=== PATIENT | male | born 1945 | race Caucasian/White ===

== ENCOUNTER 2017-10-19 14:33 | Outpatient (POV) | payer MEDICARE, MEDICAID, SELFPAY | END 2017-10-19 15:59 | disposition home or self-care (01) | PROVIDERS: Visit Provider Podiatrist | DX: M25.572 Pain in left ankle and joints of left foot (principal); L60.2 Onychogryphosis; E11.8 Type 2 diabetes mellitus with unspecified complications; M25.571 Pain in right ankle and joints of right foot | CPT/HCPCS: 99212; G0127 ==

== ENCOUNTER → 2018-03-29 16:47 | Outpatient (REF) | payer MEDICARE, MEDICAID, SELFPAY | LOC: LAB 16:47 | PROVIDERS: Visit Provider Podiatrist | DX: B35.1 Tinea unguium (principal) | CPT/HCPCS: 87102; 87206; 87220 ==

== ENCOUNTER → 2019-08-31 10:34 | Outpatient (CLI) | payer MEDICARE, OTHER, SELFPAY ==
--- NOTE | 2019-08-31 10:43 | XR_ITS ---
PROCEDURE: XR CHEST 2V CLINICAL HISTORY: COPD COMPARISON: CXR2 CHEST-AP VIEW ONLY from 09/03/[address] [facility] [address] CHEST W/O CONTRAST from 10/05/2014 CXR CHEST(2 VIEWS-NOT PORTABLE) from 10/17/2014 CXR CHEST(2 VIEWS-NOT PORTABLE) from 12/12/2015 FINDINGS: Prior median sternotomy with fracture several median sternotomy wires. Normal heart size . COPD with chronic changes in the left lung base. No lobar consolidation or collapse. There is biapical pleural thickening as before. No acute bony abnormalities. IMPRESSION: COPD with chronic changes, no acute finding Dictated by: Shamar Harrison MD 08/31/2019 11:11 Electronically signed by Shamar Harrison MD in [place] 08/31/2019 11:11
== END ==
PROVIDERS: PCP Family Medicine; Visit Provider Nurse Practitioner
DX: J44.9 Chronic obstructive pulmonary disease, unspecified (principal)
CPT/HCPCS: 71046

== ENCOUNTER 2019-09-04 05:41 | Observation (INO) ==
--- NOTE | 2019-09-04 05:41 | Emergency Department Note ---
ED Disposition Clinical Impression: Weakness, Gastroenteritis Disposition: Admitted as Observation Condition on Discharge: Fair - Critical Care Critical Care Time: No Attestation: On , the high probability of a clinically significant, sudden or life threatening deterioration of the following system(s) required my full and direct attention, intervention and personal management. The time I documented below is in addition to time spent performing reported procedures but includes the following listed in this critical care notation. Medical Decision Making - Edmund Inquiry Pt receiving controlled substance: No Vital Signs: 09/04/19 05:38 09/04/19 07:12 09/04/19 07:28 Temperature 97.9 F Temperature Source Oral Pulse Rate [Left Radial] 58 L 55 L 64 Respiratory Rate 14 Blood Pressure [Right Arm] 126/62 110/62 119/93 H Blood Pressure Mean [Right Arm] 83 78 101 Blood Pressure Source [Right Arm] Automatic Cuff Automatic Cuff Blood Pressure Position [Right Arm] Sitting Sitting Sitting 02 Sat by Pulse Oximetry 92 L 95 93 L Oxygen Delivery Method Room Air Room Air Room Air 09/04/19 07:43 Temperature Temperature Source Pulse Rate [Left Radial] 55 L Respiratory Rate Blood Pressure [Right Arm] 125/60 Blood Pressure Mean [Right Arm] 81 Blood Pressure Source [Right Arm] Automatic Cuff Blood Pressure Position [Right Arm] Sitting 02 Sat by Pulse Oximetry 95 Oxygen Delivery Method Room Air - Lab Data Lab Results 09/04/19 05:48: WBC 10.1, RBC 5.07, Hgb 14.6, Hct 46.7, MCV 92.1, MCH 28.8, MCHC 31.3 L, RDW 14.1, Plt Count 181, MPV 8.4, Neut % (Auto) 56.2, Lymph % (Auto) 36.8, [place] % (Auto) 5.5, Eos % (Auto) 1.3, Baso % (Auto) 0.3, Neut # (Auto) 5.7, Lymph # (Auto) 3.7, [place] # (Auto) 0.6, Eos # (Auto) 0.1, Baso # (Auto) 0.0 09/04/19 05:48: Sodium 143, Potassium 3.8, Chloride 105, Carbon Dioxide 26, Anion Gap 15.8 H, BUN 21 H, Creatinine 0.98, Estimated Creat Clear 103, Estimated GFR 75, Est GFR ( Amer) 91, Glucose 133 H, Calcium 9.0, Total Bilirubin 0.3, AST 10 L, ALT 22, Alkaline Phosphatase 83, Troponin I < 0.02, Total Protein 6.9, Albumin 3.6, Globulin 3.3 H, Albumin/Globulin Ratio 1.1 09/04/19 06:21: Lactate 1.7 09/04/19 06:30: Urine Color Yellow, Urine Appearance Clear, Urine pH 5.5, Ur Specific [place] 1.020, Urine Protein Negative, Urine Glucose (UA) 3+, Urine Ketones Negative, Urine Blood Negative, Urine Nitrate Negative, Urine Bilirubin Negative, Urine Urobilinogen 0.2, Ur Leukocyte Esterase Negative, Urine RBC None, Urine WBC Occasional, Ur Squamous Epith Cells None, Urine Bacteria Trace Result diagrams: 09/04/19 05:48 09/04/19 05:48 Orders (Tests/Meds): ED MEDICATIONS Discontinued Medications Generic Name Dose Route Start Last Admin Trade Name Freq PRN Reason Stop Dose Admin Sodium Chloride 1,000 ml 09/04/19 07:20 09/04/19 07:21 Sod Chlor 0.9% 1000ml Bag IV 09/04/19 07:21 1,000 ml BOLUS ONE Administration ORDERS Category Date Time Status Blood Culture Stat Micro 09/04/19 06:21 Received - Radiology Data #1 Image(s): Chest Image Reviewed: Yes I have reviewed radiologist's interpretation FINDINGS: Prior CABG. There is fracture of multiple median sternotomy wires. There are chronic interstitial changes. No lobar consolidation or collapse. No acute bony abnormalities. IMPRESSION: Chronic changes, no acute finding Dictated by: Shamar Harrison MD 09/04/2019 07:17 Electronically signed by Shamar Harrison MD in [place] 09/04/2019 07:17 - CT Data CT Scan: Head Time Received: 06:45 ([facility] fax) ED CT Reviewed: Yes: I have viewed the radiologist's interpretation Findings Narrative: No acute intracranial abnormality - Physician Consults Physician Consulted: [place] Time: 07:54 Reason -: Admission Comment/Response: Agrees to admit the patient to the hospital. We discussed the patient's clinical information, including history, exam, laboratory and radiology results and ED course. Per hospital procedure, I will write temporary bridge inpatient orders on the patient. Specific orders requested by the admitting physician: Normal saline at 75 cc/h. Sliding scale insulin. Recheck troponin one more time. Medical Decision Narrative: 7:15 AM: is now here. She says that symptoms started about 3 AM. States that he had one episode of diarrhea that she cleaned up. No blood. He had to crawl to the bathroom. She says she could not help him get up. He was very sweaty. He said he could not see. He was weak all over "like a puppet". Patient says he is improved now but still "feels funny". General Adult HPI - General Stated complaint: weakness Time Seen by Provider: 09/04/19 05:30 - History of Present Illness HPI narrative: Patient arrives by ambulance with no specific complaint except "I just can't do anything". Appears to be referring to general weakness. He does not know when it started. Paramedics report that the patient was found sitting on the toilet in the bathroom, but was not using the bathroom. He was diaphoretic. He denies any pain or discomfort. Denies any difficulty breathing. He says he was nauseated but could not vomit. One episode of diarrhea, no abdominal pain. Denies chest pain. Denies headache. States he has not been sick with URI symptoms or cough. - Related Data Home Medications Medication Instructions Recorded Confirmed albuterol sulfate HFA 90 2 puff INHALATION Q6 PRN 25 Days 12/28/17 09/04/19 mcg/actuation aerosol inhaler #18 alcohol swabs pad TOPICAL 25 Days #100 12/28/17 08/31/19 atorvastatin 40 mg tablet 40 mg PO DAILY 90 Days #90 12/28/17 09/04/19 budesonide-formoterol HFA 160 INHALATION 90 Days #31 12/28/17 08/31/19 mcg-4.5 mcg/actuation aerosol inhaler canagliflozin 300 mg tablet PO 90 Days #90 12/28/17 08/31/19 finasteride 5 mg tablet 5 mg PO DAILY 90 Days #90 12/28/17 09/04/19 fluticasone 500 mcg-salmeterol 50 INHALATION 90 Days #180 12/28/17 08/31/19 mcg/dose blistr powdr for inhalation insulin glargine (U-100) 100 SUB-Q 37 Days #30 02/27/18 10/31/19 unit/mL (3 mL) subcutaneous pen losartan 50 mg tablet 50 mg PO DAILY 90 Days #90 12/28/17 09/04/19 metoprolol tartrate 25 mg tablet 25 mg PO DAILY 90 Days #90 12/28/17 09/04/19 montelukast 10 mg tablet 10 mg PO DAILY 90 Days #90 12/28/17 09/04/19 pen needle, diabetic 31 gauge x See Dose Instructions .ROUTE 12/28/17 08/31/19/16" .MEDSUPPLY 25 Days #100 each ranitidine 150 mg tablet 150 mg PO BID 90 Days #180 12/28/17 09/04/19 sitagliptin 50 mg-metformin ER 1 tab PO BID 90 Days #180 12/28/17 09/04/19 1,000 mg tablet,extended release 24h mp tamsulosin 0.4 mg capsule 0.4 mg PO DAILY 90 Days #90 12/28/17 08/31/19 umeclidinium 62.5 mcg/actuation INHALATION 90 Days #90 12/28/17 08/31/19 blister powder for inhalation fluticasone propionate 50 INTRANASAL 30 Days #16 03/29/18 08/31/19 mcg/actuation nasal spray,suspension Empagliflozin [Jardiance] 25 mg PO DAILY 09/04/19 09/04/19 Fluticasone/Salmeterol [Advair 1 each INHALATION DAILY 09/04/19 09/04/19 500/50mcg diskus] Insulin Glargine,Hum.rec.anlog 100 unit SQ DAILY 09/04/19 09/04/19 [Verenaagltanvi Mcguire U-100] Ipratropium [place] [Atrovent Hfa 2 puff INHALATION QID PRN 09/04/19 09/04/19 Inh] Umeclidinium [place] [Incruse 1 puff INHALATION DAILY 09/04/19 09/04/19 Ellipta] Allergies Allergy/AdvReac Type Severity Reaction Status Date / Time PCN (penicillin) Allergy Unknown I-ITCHING Uncoded 09/15/18 09:[address] [facility] History - Hepatitis A Screen Attestation statement:: This patient has been screened for Hepatitis A risk factors. I have reviewed the patient's past medical history: Yes Medical History: Reports:: Diabetes Mellitus Type 2, Gastroesophageal Reflux Disease(GERD), Hyperlipidemia, Hypertension Other Medical History: Reports: Arthritis, Sinus Problems Other Surgeries: Yes: Cardiac Surgery Amputation: No Fractures: No - Social History Smoking Status: Current every day smoker Tobacco Type: cigarettes # Packs/Day (cigarettes): 1 #Yrs smoked (if former smoker): 62 Alcohol Intake: never Alcohol Intake Frequency:: other Substance Use Type: denies use Family Hx:: Non-contributory ROS Obtained: Yes All systems reviewed & no additional complaints - Constitutional Constitutional: Denies fever(s), Reports weakness - ENT Ears, Nose, Mouth, and Throat: Denies nasal discharge, Denies sore throat - Cardiovascular Cardiovascular: Denies chest pain - Respiratory Respiratory: No cough, No dyspnea - Gastrointestinal Gastrointestingal: Reports: nausea. Denies: abdominal pain, vomiting - Neurologic Neurologic: Denies focal weakness, Denies headache(s) Physical Exam - General General appearance: alert, in no apparent distress - Head Head exam: atraumatic, normocephalic - Eye Eye exam: Present: normal appearance, PERRL, EOMI - ENT ENT exam: Present: mucous membranes moist - Neck Neck exam: Present: normal inspection, trachea midline. Absent: meningismus - Chest Chest inspection: Present: normal inspection, symmetric chest wall rise - Respiratory Respiratory exam: Present: normal lung sounds bilaterally. Absent: respiratory distress - Cardiovascular Cardiovascular exam: Present: regular rate, normal rhythm, normal heart sounds - Abdominal Exam Abdominal exam: Present: soft, normal bowel sounds. Absent: distention, tenderness - Extremities Exam Extremities exam: Present: normal inspection - Neurological Exam Neurological exam: Present: alert, CN II-XII intact, other (General weakness, no focal deficit) - Psychiatric Psychiatric exam: Present: normal affect, normal mood - Skin Skin exam: Present: warm, dry - Other Other exam information: No facial asymmetry. Will not hold up any of the extremities against gravity, but when painful stimulus applied raises each arm independently up off of the bed. Also withdraws both feet to stimulus on the bottom of his foot.
[2019-09-04 05:59] LABS: Basophils % 0.3 % (0.1-2.0); Eosinophils # 0.1 K/mm3 (0.0-0.4); Eosinophils % 1.3 % (0.1-12.0); Hematocrit 46.7 % (42.0-52.0); Hemoglobin 14.6 g/dL (14.1-18.0); Lymphocytes # 3.7 K/mm3 (0.7-4.5); Lymphocytes % 36.8 % (10-50); Mean Corpuscular HGB Conc 31.3 g/dL (31.8-35.4); Mean Corpuscular Volume 92.1 fl (80-94); Mean Platelet Volume 8.4 fl (7.4-10.4); Monocytes # 0.6 K/mm3 (0.1-1.0); Monocytes % 5.5 % (1.7-9.3); Neutrophils # 5.7 K/mm3 (1.8-7.8); Neutrophils % 56.2 % (37.0-80.0); Platelet Count 181 K/mm3 (142-424); Red Blood Count 5.07 M/mm3 (4.60-6.20); Red Cell Distribution Width 14.1 % (11.5-17.5); White Blood Count 10.1 K/mm3 (4.8-10.8)
[2019-09-04 06:14] LABS: Alanine Aminotransferase 22 U/L (12-78); Albumin Level 3.6 gm/dL (3.4-5.0); Albumin/Globulin Ratio 1.1 (1.1-1.8); Alkaline Phosphatase 83 U/L (46-116); Anion Gap 15.8 mEq/L (5-15); Aspartate Amino Transferase 10 U/L (15-37); Bilirubin,Total 0.3 mg/dL (0.2-1.0); Blood Urea Nitrogen 21 mg/dL (7-18); Carbon Dioxide 26 mmol/L (21.0-32.0); Chloride 105 mmol/L (98-107); Globulin 3.3 gm/dl (1.3-3.2); Glucose 133 mg/dL (74-106); Sodium 143 mmol/L (136-145); Total Protein,Serum 6.9 gm/dL (6.4-8.2)
[2019-09-04 06:41] LABS: Microscopic, Urine URINE MICROSCOPIC (MICROSCOPIC)
[2019-09-04 06:44] LABS: Appearance,Urine CLEAR (Clear); Bilirubin,Urine Negative (Negative); Blood, Urine Negative (Negative); Color,Urine YELLOW (Yellow); Glucose,Urine (UA) 3+ (Negative); Ketones,Urine Negative (Negative); Leukocyte Esterase,Urine Negative (Negative); PH,Urine 5.5 (5.0-8.5); Protein,Urine Negative (Negative); Urobilinogen,Urine 0.2 EU/dl (0.2)
[2019-09-04 06:58] LABS: Bacteria,Urine Trace /lpf; WBC,Urine Occasional #/hpf (0-3)
--- NOTE | 2019-09-04 08:50 | Pharmacy Consult Notes ---
[facility] Pharmacy VTE Monitoring - Patient Demographics Admission date: 09/04/19 Report Date: 09/04/19 Time: 08:50 Allergies/Adverse Reactions: Patient Allergies PCN (penicillin) Allergy (Unknown, Uncoded 09/15/18 09:40) I-ITCHING Height: 1.85 m Weight: 99.904 kg Patient Problems: Current Active Problems Weakness (Acute) Gastroenteritis (Acute) - VTE Risk Labs: VTE Related Lab Results Hgb 14.6 g/dL (14.1-18.0) 09/04/19 05:48 Hct 46.7 % (42.0-52.0) 09/04/19 05:48 Plt Count 181 K/mm3 (142-424) 09/04/19 05:48 BUN 21 mg/dL (7-18) H 09/04/19 05:48 Creatinine 0.98 mg/dL (0.70-1.30) 09/04/19 05:48 Estimated Creat Clear 103 mL/min (50-200) 09/04/19 05:48 - Prophylaxis VTE Prophylaxis Ordered?: Yes Types of VTE Prophylaxis: TEDS Knee High Location of Applied Device: Bilateral Lower Extremeties - VTE Diagnosis Confirmed Treatment or plan recommended: Continue Current Treatment
--- NOTE | 2019-09-04 16:40 | History & Physical Report ---
*Admission Date: 09/04/19 *Chief complaint: "I just feel funny" *History of present illness: 74-year-old male presented to the emergency department this morning after EMS was contacted by his . Patient reports around 3 AM he awoke and felt weak and diaphoretic and when he attempted to get out of bed he was not strong enough to and simply fell back in his bed. His later reported to him that he apparently did slide out of bed and crawled to the bathroom to use the bathroom. He was disoriented during this time and at some point his called EMS. EMS arrived at his home. Patient was able to proceed with having a bowel movement but still was too weak to rise up off the toilet on his own and ultimately was brought to the emergency department. Patient is a diabetic and blood sugar was checked by EMS and was normal. In the emergency department work-up was rather unrevealing. Patient continued to be too weak to be able to ambulate or even raise his arms per reports. He could not give specifics other than that he "felt funny" and decision was made to admit him for observation. At the time of this interview which is 4:30 PM patient reports he began feeling better about an hour after admission to the floor and now he feels back to baseline. Review of systems is negative for fevers, chills, shortness of breath, chest pain, cough, vomiting, diarrhea Review of systems is positive for mild nausea and abdominal bloating [facility] History I have reviewed the patient's past medical history: Yes Medical History: Reports:: Congestive Heart Failure, Diabetes Mellitus Type 2, Gastroesophageal Reflux Disease(GERD), Hyperlipidemia, Hypertension, Myocardial Infarction *Have you ever received a pneumonia vaccine?: Yes *Have you received a flu vaccine this season?: No Other Medical History: Reports: Arthritis, Cataracts, Sinus Problems Other Surgeries: Yes: CABG, Cardiac Surgery Amputation: No Fractures: No - *Social History Educational Level: Completed High School Smoking Status: Current every day smoker Tobacco Type: cigarettes # Packs/Day (cigarettes): 1 #Yrs smoked (if former smoker): 62 Alcohol Intake: never Alcohol Intake Frequency:: other Substance Use Type: denies use *Occupational Status:: retired Housing: house Household Members: spouse *Travel in the last 8 weeks: None Family Hx:: Diabetes Review of Systems - Review of Systems Review of systems:: pertinent systems reviewed and negative unless documented below - *Neurologic Reports weakness, Denies localized weakness, Denies headache(s) Meds Home Medications Medication Instructions Recorded Confirmed Type albuterol sulfate HFA 90 2 puff INHALATION Q6 PRN 25 Days 12/28/17 09/04/19 History mcg/actuation aerosol inhaler #18 atorvastatin 40 mg tablet 40 mg PO DAILY 90 Days #90 12/28/17 09/04/19 History finasteride 5 mg tablet 5 mg PO DAILY 90 Days #90 12/28/17 09/04/19 History losartan 50 mg tablet 50 mg PO DAILY 90 Days #90 12/28/17 09/04/19 History metoprolol tartrate 25 mg tablet 25 mg PO DAILY 90 Days #90 12/28/17 09/04/19 History montelukast 10 mg tablet 10 mg PO DAILY 90 Days #90 12/28/17 09/04/19 History ranitidine 150 mg tablet 150 mg PO BID 90 Days #180 12/28/17 09/04/19 History Empagliflozin [Jardiance] 25 mg PO DAILY 09/04/19 09/04/19 History Insulin Glargine,Hum.rec.anlog 86 unit SQ DAILY 09/04/19 09/04/19 History [Basaglar Kwikpen U-100] Ipratropium [place] [Atrovent Hfa 2 puff INHALATION QID PRN 09/04/19 09/04/19 History Inh] Sitagliptin Phos/Metformin HCl 2 tab PO BID 09/04/19 09/04/19 History [Janumet Xr 50-1,000 mg Tablet] Tamsulosin HCl 0.4 mg PO DAILY 09/04/19 09/04/19 History Allergies Allergy/AdvReac Type Severity Reaction Status Date / Time PCN (penicillin) Allergy Unknown I-ITCHING Uncoded 09/15/18 09:40 Exam Vital signs and Labs for Last 24 Hours: Temp Pulse Resp BP Pulse Ox 98.0 F 70 16 120/61 92 L 09/04/19 16:00 09/04/19 16:00 09/04/19 16:00 09/04/19 16:00 09/04/19 16:00 Laboratory Results - last 24 hr 09/04/19 05:48: WBC 10.1, RBC 5.07, Hgb 14.6, Hct 46.7, MCV 92.1, MCH 28.8, MCHC 31.3 L, RDW 14.1, Plt Count 181, MPV 8.4, Neut % (Auto) 56.2, Lymph % (Auto) 36.8, [place] % (Auto) 5.5, Eos % (Auto) 1.3, Baso % (Auto) 0.3, Neut # (Auto) 5.7, Lymph # (Auto) 3.7, [place] # (Auto) 0.6, Eos # (Auto) 0.1, Baso # (Auto) 0.0 09/04/19 05:48: Sodium 143, Potassium 3.8, Chloride 105, Carbon Dioxide 26, Anion Gap 15.8 H, BUN 21 H, Creatinine 0.98, Estimated Creat Clear 103, Estimated GFR 75, Est GFR ( Amer) 91, Glucose 133 H, Calcium 9.0, Total Bilirubin 0.3, AST 10 L, ALT 22, Alkaline Phosphatase 83, Troponin I < 0.02, Total Protein 6.9, Albumin 3.6, Globulin 3.3 H, Albumin/Globulin Ratio 1.1 09/04/19 06:21: Lactate 1.7 09/04/19 06:30: Urine Color Yellow, Urine Appearance Clear, Urine pH 5.5, Ur Specific [place] 1.020, Urine Protein Negative, Urine Glucose (UA) 3+, Urine Ketones Negative, Urine Blood Negative, Urine Nitrate Negative, Urine Bilirubin Negative, Urine Urobilinogen 0.2, Ur Leukocyte Esterase Negative, Urine RBC None, Urine WBC Occasional, Ur Squamous Epith Cells None, Urine Bacteria Trace 09/04/19 08:58: Troponin I < 0.02 09/04/19 10:46: POC Glucose 172 H I & O for Last 24 hours: Intake & Output 09/02/19 09/03/19 09/04/19 09/05/19 12:59 11:59 11:59 11:59 Intake Total 1000 / 1000 240 / 240 Balance 1000 / 1000 240 / 240 Weight 220 lb 4 oz - *Routine HEENT Exam Head: Present: normocephalic Eye: Present: EOMI, PERRL ENT: Present: mucous membranes moist - *Routine Neck Exam Present: supple. Absent: lymphadenopathy - *Routine Respiratory Exam Present: CTA bilaterally - *Routine Cardiovascular Exam Present: RRR - *Routine Abdominal Exam Present: soft, normoactive bowel sounds. Absent: tenderness - *Routine Extremities Exam Absent: cyanosis, clubbing, edema - *Routine Skin Exam Present: warm. Absent: rash - *Routine Neurological Exam Present: alert, oriented X3 - Detailed Eye Exam Eyelids: Left normal inspection Assessment and Plan (1) Weakness Current visit: Yes Status: Acute Category: Medical Code(s): R53.1 - Weakness Patient has been admitted for observation and is already improving. Will be observed overnight for any further symptoms and if no change in patient's condition anticipate discharge in the morning
--- NOTE | 2019-09-04 17:13 | Electrocardiograph Report ---
APPROVED REPORT Exam: Resting ECG HR:56 bpm ECG Measurements Heart Rate 56 AXES NC 180 P 36 QRSd 158 QRS 103 QT 494 T81 QTc 476 <Conclusion> Sinus bradycardia Right bundle branch block Abnormal ECG Electronically signed by : Amando Ojeda, 09/04/2019 17:12:56
--- NOTE | 2019-09-05 07:35 | Discharge Summary ---
General - General Admission date:: 09/04/19 Discharge date: 09/05/19 HPI HPI: 74-year-old male presented to the emergency department this morning after EMS was contacted by his . Patient reports around 3 AM he awoke and felt weak and diaphoretic and when he attempted to get out of bed he was not strong enough to and simply fell back in his bed. His later reported to him that he apparently did slide out of bed and crawled to the bathroom to use the bathroom. He was disoriented during this time and at some point his called EMS. EMS arrived at his home. Patient was able to proceed with having a bowel movement but still was too weak to rise up off the toilet on his own and ultimately was brought to the emergency department. Patient is a diabetic and blood sugar was checked by EMS and was normal. In the emergency department work-up was rather unrevealing. Patient continued to be too weak to be able to ambulate or even raise his arms per reports. He could not give specifics other than that he "felt funny" and decision was made to admit him for observation. At the time of this interview which is 4:30 PM patient reports he began feeling better about an hour after admission to the floor and now he feels back to baseline. Review of systems is negative for fevers, chills, shortness of breath, chest pain, cough, vomiting, diarrhea Review of systems is positive for mild nausea and abdominal bloating Hospital Course Hospital Course: Patient was admitted and shortly after admission felt like it returned to baseline. He was watched overnight for recurrence of symptoms. Patient was able to eat. He was able to ambulate. He was able to use bathroom facilities without assistance. He was discharged home the following day on September 05. No changes were made to his medication regimen. Objective Vital signs: Temp Pulse Resp BP Pulse Ox 97.9 F 65 17 130/63 93 L 09/05/19 04:00 09/05/19 04:00 09/05/19 04:00 09/05/19 04:00 09/05/19 04:00 Results Labs on day of discharge: Labs from last 24 hours 09/05/19 09/04/19 09/04/19 06:29 20:45 16:36 POC Glucose 122 H 126 H 89 Troponin I 09/04/19 09/04/19 09/04/19 10:46 08:58 05:29 POC Glucose 172 H 137 H Troponin I < 0.02 DS: Diagnosis - Discharge Diagnosis (1) Weakness Status: Resolved Discharge Plan - Patient Discharge Instructions ACTIVITY: Continue current activity DIET: continue same diet - Follow up Plan Follow up with: Sarah Mora APRN [Nurse Practitioner] - 1 week Home Medications: Home Medications Medication Instructions Recorded Confirmed Type albuterol sulfate HFA 90 2 puff INHALATION Q6 PRN 25 Days 12/28/17 09/04/19 History mcg/actuation aerosol inhaler #18 atorvastatin 40 mg tablet 40 mg PO DAILY 90 Days #90 12/28/17 09/04/19 History finasteride 5 mg tablet 5 mg PO DAILY 90 Days #90 12/28/17 09/04/19 History losartan 50 mg tablet 50 mg PO DAILY 90 Days #90 12/28/17 09/04/19 History metoprolol tartrate 25 mg tablet 25 mg PO DAILY 90 Days #90 12/28/17 09/04/19 History montelukast 10 mg tablet 10 mg PO DAILY 90 Days #90 12/28/17 09/04/19 History ranitidine 150 mg tablet 150 mg PO BID 90 Days #180 12/28/17 09/04/19 History Empagliflozin [Jardiance] 25 mg PO DAILY 09/04/19 09/04/19 History Insulin Glargine,Hum.rec.anlog 86 unit SQ DAILY 09/04/19 09/04/19 History [Basaglar Petronapen U-100] Ipratropium [place] [Atrovent Hfa 2 puff INHALATION QID PRN 09/04/19 09/04/19 History Inh] Sitagliptin Phos/Metformin HCl 2 tab PO BID 09/04/19 09/04/19 History [Janumet Xr 50-1,000 mg Tablet] Tamsulosin HCl 0.4 mg PO DAILY 09/04/19 09/04/19 History Prescriptions/Medication Reconciliation: Continued losartan 50 mg tablet 50 mg PO DAILY 90 Days #90 albuterol sulfate HFA 90 mcg/actuation aerosol inhaler 2 puff INHALATION Q6 PRN 25 Days #18 PRN Reason: Shortness Of Breath metoprolol tartrate 25 mg tablet 25 mg PO DAILY 90 Days #90 finasteride 5 mg tablet 5 mg PO DAILY 90 Days #90 ranitidine 150 mg tablet 150 mg PO BID 90 Days #180 atorvastatin 40 mg tablet 40 mg PO DAILY 90 Days #90 montelukast 10 mg tablet 10 mg PO DAILY 90 Days #[address] [Atrovent Hfa Inh] 2 puff INHALATION QID PRN PRN Reason: Shortness Of Breath Or Wheezing Empagliflozin [Jardiance] 25 mg PO DAILY Sitagliptin Phos/Metformin HCl [Janumet Xr 50-1,000 mg Tablet] 2 tab PO BID Insulin Glargine,Hum.rec.anlog [Gretel Mcguire U-100] 86 unit SQ DAILY Tamsulosin HCl 0.4 mg PO DAILY - Problem Reconciliation Problems Reviewed?: Yes
== END 2019-09-05 08:40 | disposition home or self-care (01) ==
LOC: ER 05:41 → 2ND 05:41
PROVIDERS: ADMIT Family Medicine; ATTEND Family Medicine
CPT/HCPCS: 36415; 70450; 71010; 71045; 80053; 81001; 82962; 83605; 84484; 85025; 87040; 87077; 93005; 96365; 99284; G0378

== ENCOUNTER → 2019-09-19 12:50 | Outpatient (CLI) | payer MEDICARE, OTHER, SELFPAY ==
--- NOTE | 2019-09-19 | CA_ITS ---
APPROVED REPORT Development Trainer: CONRAD Laterality: Bilateral Study Quality: Good Risk Factors Hypertension: TIA/CVA History Hyperlipidemia Diabetes Smoking Doppler Spectral Velocity Analysis ECA (R) 109.70/19.70 cm/s ECA (L) 135.40/20.50 cm/s dICA (R) 98.80/31.70 cm/s dICA (L) 145.30/48.80 cm/s [place] (R) 138.80/35.70 cm/s [place] (L) 120.20/41.30 cm/s pICA (R) 127.20/42.90 cm/s pICA (L) 62.20/18.50 cm/s dCCA (R) 90.00/24.00 cm/s dCCA (L) 90.30/19.50 cm/s pCCA (R) 102.80/18.00 cm/s pCCA (L) 131.00/21.20 cm/s Vert (R) 29.50/12.20 cm/s Vert (L) 98.90/25.00 cm/s ICA/CCA 1.50 ICA/CCA 1.60 Findings Duplex evaluation demonstrates stenosis of the right proximal internal carotid artery <20% with PSV <140 cm/sec, EDV <100 cm/sec, and IC/CC Ratio <4.0.Duplex evaluation demonstrates stenosis of the left proximal internal carotid artery <20% with PSV <140 cm/sec, EDV <100 cm/sec, and IC/CC Ratio <4.0. Conclusion No increased velocities to suggest hemodynamically significant stenosis in either internal carotid artery. Electronically signed by : Shamar Harrison MD 09/20/2019 19:09:52
== END ==
PROVIDERS: PCP Family Medicine; Visit Provider Nurse Practitioner
DX: R55 Syncope and collapse (principal)
CPT/HCPCS: 93880

== ENCOUNTER → 2019-12-05 09:32 | Outpatient (CLI) | payer MEDICARE, OTHER, SELFPAY ==
--- NOTE | 2019-12-05 09:44 | XR_ITS ---
PROCEDURE: XR CHEST 2V CLINICAL HISTORY: COPD COMPARISON: [facility] CT CHEST W/O CONTRAST from 07/14/[address] [facility] CHEST W/O CONTRAST from 10/05/2014 CXR CHEST(2 VIEWS-NOT PORTABLE) from 12/12/2015 XR CHEST 2V from 08/31/2019 XR CHEST PORTABLE from 09/04/2019 FINDINGS: Prior CABG. Normal heart size. COPD with chronic changes. There is increased density in the left lung base which appears chronic and may be related to pleural parenchymal scarring. Chronic changes left mid lung. There is biapical pleural thickening as well. No lobar consolidation or collapse. There is fracture of every median sternotomy wire. No acute bony abnormalities. IMPRESSION: Chronic changes, COPD. No change with no acute finding Dictated by: Shamar Harrison MD 12/05/2019 18:51 Electronically signed by Shamar Harrison MD in [place] 12/05/2019 18:51
== END ==
PROVIDERS: PCP Family Medicine; Visit Provider Nurse Practitioner
DX: J44.9 Chronic obstructive pulmonary disease, unspecified (principal)
CPT/HCPCS: 71046

== ENCOUNTER → 2020-01-04 15:34 | Outpatient (CLI) | payer MEDICARE, OTHER, SELFPAY ==
--- NOTE | 2020-01-04 15:38 | CT_ITS ---
PROCEDURE: CT LUNG SCREENING CLINICAL INDICATION: H/O NICOTINE DEPENDENCE Sixty-five pack-year smoking history, asymptomatic lung cancer COMPARISON: [facility] CT CHEST W/O CONTRAST from 10/05/2014 TECHNIQUE: The exam was performed on a GE Light Speed [address] scanner using 2.90 mGy CTDI. A low dose helical CT CHEST was performed on a multi-detector scanner. All CT scans at the facility use one or more dose reduction, viz: automated exposure control, ma/kV adjustment per patient size (including targeted exams where dose is matched to indication, i.e. head), or iterative reconstruction technique. The LDCT was performed in a facility that meets the criteria for the screening program. Data regarding this exam was submitted to ACR which is an approved registry. The order for this exam indicates that it came as a result of a lung cancer screening counseling shard decision-making visit that included all the elements required of such a visit including smoking cessation. The radiologist interpreting this exam meets the CMS criteria for the LDCT lung cancer screening program. The exam is reported using the Lung-RADS classification scale and reported to the ACR registry. NOTE: This study was performed for the specific purposes of lung cancer screening and is not an alternative to diagnostic chest CT. RADIATION DOSE: CTDI vol(CT dose Index-volume) = 2.90mG DLP (Dose Length Product) = 94.29 mGcm FINDINGS: COPD with centrilobular and paraseptal emphysema. Scattered areas of scarring. 5 mm noncalcified nodule right lower lobe posterior laterally image number 40 series 4 unchanged. Scattered calcified granulomas. Stable 3 mm noncalcified nodule right upper lobe superiorly. Stable 7 mm noncalcified nodule left upper lobe image 32 series 4. There are 2 5 mm nodules in the left upper lobe 37 and 39 not readily apparent on the previous exam. OTHER FINDINGS: The IMPRESSION: Lung rads category 3 probably benign. There are 2 new nodules in the left upper lobe. Recommend six-month diagnostic CT without and with contrast. COPD with centrilobular and paraseptal emphysema. Dictated by: Shamar Harrison MD 01/08/2020 10:27 Electronically signed by Shamar Harrison MD in [place] 01/08/2020 10:27
== END ==
PROVIDERS: PCP Family Medicine; Visit Provider Internal Medicine Pulmonary Disease
DX: Z87.891 Personal history of nicotine dependence (principal); Z12.2 Encounter for screening for malignant neoplasm of respiratory organs

== ENCOUNTER → 2020-07-29 10:03 | Outpatient (CLI) | payer MEDICARE, OTHER, SELFPAY ==
--- NOTE | 2020-07-29 10:06 | CT_ITS ---
PROCEDURE: CT LUNG SCREENING CLINICAL INDICATION: TOBACCO USE CURRENT SMOKER 162.5 pack year smoking history copd, emphysema, chf prior 01/04/20 COMPARISON: CT [facility] CT CHEST W/O CONTRAST from 10/05/[address] LUNG SCREENING from 01/04/2020 TECHNIQUE: The exam was performed on a [employer] Light Speed [address] scanner using 2.90 mGy CTDI. A low dose helical CT CHEST was performed on a multi-detector scanner. All CT scans at the facility use one or more dose reduction, viz: automated exposure control, ma/kV adjustment per patient size (including targeted exams where dose is matched to indication, i.e. head), or iterative reconstruction technique. The LDCT was performed in a facility that meets the criteria for the screening program. Data regarding this exam was submitted to ACR which is an approved registry. The order for this exam indicates that it came as a result of a lung cancer screening counseling shard decision-making visit that included all the elements required of such a visit including smoking cessation. The radiologist interpreting this exam meets the CMS criteria for the LDCT lung cancer screening program. The exam is reported using the Lung-RADS classification scale and reported to the ACR registry. NOTE: This study was performed for the specific purposes of lung cancer screening and is not an alternative to diagnostic chest CT. RADIATION DOSE: CTDI vol(CT dose Index-volume) = 2.90mG DLP (Dose Length Product) = 113.33 mGcm FINDINGS: COPD. Scattered areas of scarring with pleural parenchymal thickening in the apices.. Scarring is present in the lung bases posteriorly. Calcified granuloma superior segment right lower lobe. There are multiple small pulmonary nodules as previously described the largest in the left upper lobe laterally at approximately 7 mm unchanged.. There is a new opacity in the left lung base posteriorly. This is measures approximately 2 cm and is in the extreme lung base posteriorly and could be due to an area of atelectasis or patchy infiltrate. Developing pulmonary nodule is however an additional consideration. Short-term CT follow-up without and with contrast is recommended. There is some pleural thickening in the left lower lobe posteriorly. Previously there were 2 new nodular opacities in the left upper lobe which are not demonstrated on today's exam and may have been inflammatory or infectious. OTHER FINDINGS: Mixed soft tissue and fatty mass of the left adrenal gland consistent with an adrenal myelolipoma at 2.9 cm not significantly changed from 10/05/2014 IMPRESSION: Lung-RADS Category 4A Suspicious Follow-up: [address] Chest without and with contrast to follow the new area of consolidation/nodule in the left lung base posteriorly. Dictated by: Shamar Harrison MD 08/09/2020 09:10 Shamar Harrison MD in [place] 08/09/2020 09:10
== END ==
PROVIDERS: PCP Family Medicine; Visit Provider Internal Medicine Pulmonary Disease
DX: Z87.891 Personal history of nicotine dependence (principal); Z12.2 Encounter for screening for malignant neoplasm of respiratory organs

== ENCOUNTER → 2021-04-23 12:43 | Outpatient (CLI) | payer MEDICARE, OTHER, SELFPAY ==
--- NOTE | 2021-04-23 14:17 | CT_ITS ---
PROCEDURE INFORMATION: Exam: CT Chest Without Contrast; Diagnostic Exam date and time: 04/23/2021 2:17 PM Age: 75 years old Clinical indication: Condition or disease; Other: Lung nodule f/u; Additional info: Nodule follow-up TECHNIQUE: Imaging protocol: Diagnostic computed tomography of the chest without contrast. Radiation optimization: All CT scans at this facility use at least one of these dose optimization techniques: automated exposure control; mA and/or kV adjustment per patient size (includes targeted exams where dose is matched to clinical indication); or iterative reconstruction. COMPARISON: [facility] CT CHEST W/O CONTRAST 10/05/2014 12:51 PM FINDINGS: Lungs: Granulomatous densities noted throughout the lungs bilaterally. Emphysematous changes noted bilaterally. 6 mm nodule present within the left upper lobe. Pleural spaces: Pleural based mass is again noted within the left lung base measuring up to 2 cm. This is unchanged from the prior study. Heart: Unremarkable. No cardiomegaly. No pericardial effusion. Aorta: Unremarkable. No aortic aneurysm. Lymph nodes: Calcified hilar mediastinal lymphadenopathy present. Adrenal glands: 3.6 cm left adrenal mass is again noted and partially imaged. Bones/joints: The thoracic spine demonstrates mild degenerative changes at multiple levels. There are sternal wires consistent with previous sternotomy incision. Soft tissues: Unremarkable. IMPRESSION: 1. Granulomatous densities noted throughout the lungs bilaterally. 2. Emphysematous changes noted bilaterally. 3. 6 mm nodule present within the left upper lobe. For patients at low risk (minimal or absent history of smoking and of other known risk factors), recommend CT Chest at 3-6 months, then consider CT Chest at 18-24 months. For patients at high risk (history of smoking or of other known risk factors), recommend CT Chest at 3-6 months, then CT Chest at 18-24 months. (Reference: Kenny) 4. Pleural based mass is again noted within the left lung base measuring up to 2 cm. This is unchanged from the prior study. 5. 3.6 cm left adrenal mass partially imaged. REFERENCES: Kenny Carney et al. Guidelines for Management of Incidental Pulmonary Nodules Detected on CT Images: From the Fleischner Society 2017. Radiology. 2017;284(1):228-243.
== END ==
PROVIDERS: PCP Family Medicine; Visit Provider Internal Medicine Pulmonary Disease
DX: R06.00 Dyspnea, unspecified (principal); R91.8 Other nonspecific abnormal finding of lung field
CPT/HCPCS: 71250; 94060; 94618; 94726; 94729

== ENCOUNTER 2021-05-08 08:58 | Observation (INO) | payer MEDICARE, OTHER, SELFPAY ==
[2021-05-08] VITALS (19 sets, daily range): BP systolic 99–147; BP diastolic 55–80; PULSE 47–111; RESP 16–22; TEMP 36.3–37.1; O2SAT 86–97; BMI 33.0; BMI 30.3
--- NOTE | 2021-05-08 08:57 | ECG_ITS ---
APPROVED REPORT Exam: Resting ECG HR:112 bpm ECG Measurements Heart Rate 112 AXES QRSd 148 QRS 103 QT 386 T -1 QTc 526 Conclusion Atrial fibrillation with rapid ventricular response Right bundle branch block Abnormal ECG Electronically signed by : Amando Ojeda, 05/08/2021 17:42:03
--- NOTE | 2021-05-08 09:15 | HMH.EDGENADL ---
ED Disposition Clinical Impression: Atrial fibrillation with RVR, Acute respiratory failure with hypoxia Congestive heart failure Qualifiers: Heart failure type: unspecified Heart failure chronicity: acute Qualified Code(s): I50.9 - Heart failure, unspecified Disposition: Admitted as Observation Condition on Discharge: Good Time of Disposition: 12:00 - Critical Care Critical Care Time: Yes Attestation: On , the high probability of a clinically significant, sudden or life threatening deterioration of the following system(s) required my full and direct attention, intervention and personal management. The time I documented below is in addition to time spent performing reported procedures but includes the following listed in this critical care notation. Total Critical Care Time: 35 Vital system(s) involved:: Circulatory Failure, Respiratory Failure My critical care processes included: Assessment & monitoring of V/S, Initial and Re-exams, Data Review/Interpretation, Coordinating Care, Medication Orders and management, Documentation Medical Decision Making - Medical Records Medical records reviewed: Yes: I reviewed the patient's medical records. - Edmund Inquiry Pt receiving controlled substance: No Vital Signs: 05/08/21 08:59 05/08/21 09:01 05/08/21 09:09 Temperature 97.4 F L Temperature Source Rectal Pulse Rate 72 80 Pulse Rate [Left] 111 H Respiratory Rate 21 18 18 Blood Pressure 145/80 H 108/73 L Blood Pressure [Right Arm] 108/73 L Blood Pressure Mean 99 84 Blood Pressure Mean [Right Arm] 84 02 Sat by Pulse Oximetry 92 L 86 L 92 L Oxygen Delivery Method Nasal Cannula Oxygen Flow Rate (LPM) 3 05/08/21 09:30 05/08/21 10:02 05/08/21 10:09 Temperature Temperature Source Pulse Rate 72 75 75 Pulse Rate [Left] Respiratory Rate 22 19 19 Blood Pressure 111/69 99/75 L 106/63 L Blood Pressure [Right Arm] Blood Pressure Mean 79 82 81 Blood Pressure Mean [Right Arm] 02 Sat by Pulse Oximetry 92 L 93 L 94 L Oxygen Delivery Method Oxygen Flow Rate (LPM) 05/08/21 10:50 05/08/21 11:02 05/08/21 11:14 Temperature Temperature Source Pulse Rate 71 78 66 Pulse Rate [Left] Respiratory Rate 17 18 16 Blood Pressure 105/74 L 111/55 L 128/67 Blood Pressure [Right Arm] Blood Pressure Mean 85 73 87 Blood Pressure Mean [Right Arm] 02 Sat by Pulse Oximetry 95 94 L 95 Oxygen Delivery Method Oxygen Flow Rate (LPM) - Lab Data Lab results reviewed: Yes: I reviewed the patient's lab results. Lab Results 05/08/21 09:00: WBC 9.8, RBC 5.51, Hgb 15.6, Hct 47.6, MCV 86.4, MCH 28.3, MCHC 32.8, RDW 15.3, Plt Count 164, MPV 7.9, Neut % (Auto) 61.0, Lymph % (Auto) 31.9, Avery % (Auto) 5.2, Eos % (Auto) 1.4, Baso % (Auto) 0.5, Neut # (Auto) 6.0, Lymph # (Auto) 3.1, Avery # (Auto) 0.5, Eos # (Auto) 0.1, Baso # (Auto) 0.1 05/08/21 09:00: Sodium 142, Potassium 4.1, Chloride 107, Carbon Dioxide 26, Anion Gap 13.1, BUN 15, Creatinine 0.90, Estimated Creat Clear 104, Estimated GFR 82, Est GFR ( Amer) 100, Glucose 180 H, Calcium 9.3, Total Bilirubin 0.4, AST 35, ALT 37, Alkaline Phosphatase 102, Troponin I < 0.01, Total Protein 7.4, Albumin 4.2, Globulin 3.2, Albumin/Globulin Ratio 1.3 05/08/21 09:00: NT-Pro-B Natriuret Pep 544 H 05/08/21 09:00: Lipase 110 05/08/21 09:20: Lactate 2.8 H Result diagrams: 05/08/21 09:00 05/08/21 09:00 Orders (Tests/Meds): ED MEDICATIONS Generic Name Dose Route Start Last Admin Trade Name Freq PRN Reason Stop Dose Admin Apixaban 5 mg 05/08/21 12:30 Apixaban 5mg Tablet PO 06/07/21 12:29 BID CHAYA Diltiazem HCl 180 mg 05/08/21 12:30 Diltiazem Hcl 180mg Cap.Er.24h PO 06/07/21 12:29 DAILY CHAYA Discontinued Medications Generic Name Dose Route Start Last Admin Trade Name Freq PRN Reason Stop Dose Admin Diltiazem HCl 10 mg 05/08/21 10:06 05/08/21 10:51 Diltiazem 25mg/5ml Vial IV 05/08/21 10:07 10 mg
--- NOTE | 2021-05-08 09:21 | XR_ITS ---
PROCEDURE: XR CHEST PORTABLE CLINICAL HISTORY: cough COMPARISON: CR XR CHEST 2V from 08/31/2019 CR XR CHEST PORTABLE from 09/04/2019 CR XR CHEST 2V from 12/05/[address] CHEST WO CON from 04/23/2021 FINDINGS: There has been a prior median sternotomy. There is fracture of several median sternotomy wires. Normal heart size. Chronic changes are present in the left lung base. No lobar consolidation or collapse No acute bony abnormalities. IMPRESSION: Chronic changes, no acute finding Dictated by: Shamar Harrison MD 05/08/2021 09:51 Shamar Harrison MD in [place] 05/08/2021 09:51
[2021-05-08 09:23] LABS: Basophils # 0.1 K/mm3 (0-0.2); Basophils % 0.5 % (0.1-2.0); Eosinophils # 0.1 K/mm3 (0.0-0.4); Eosinophils % 1.4 % (0.1-12.0); Hematocrit 47.6 % (42.0-52.0); Hemoglobin 15.6 g/dL (14.1-18.0); Lymphocytes # 3.1 K/mm3 (0.7-4.5); Lymphocytes % 31.9 % (10-50); Mean Corpuscular HGB Conc 32.8 g/dL (31.8-35.4); Mean Corpuscular Hemoglobin 28.3 pg (27.0-31.2); Mean Corpuscular Volume 86.4 fl (80-94); Mean Platelet Volume 7.9 fl (7.4-10.4); Monocytes # 0.5 K/mm3 (0.1-1.0); Monocytes % 5.2 % (1.7-9.3); Platelet Count 164 K/mm3 (142-424); Red Blood Count 5.51 M/mm3 (4.60-6.20); Red Cell Distribution Width 15.3 % (11.5-17.5); White Blood Count 9.8 K/mm3 (4.8-10.8)
[2021-05-08 09:27] LABS: Chloride 107 mmol/L (98-107); Potassium 4.1 mmoL/L (3.5-5.1); Sodium 142 mmol/L (136-145)
[2021-05-08 09:30] LABS: Alanine Aminotransferase 37 U/L (12-78); Albumin Level 4.2 g/dl (3.5-5.0); Albumin/Globulin Ratio 1.3 (1.1-1.8); Alkaline Phosphatase 102 U/L (38-126); Anion Gap 13.1 mEq/L (5-15); Aspartate Amino Transferase 35 U/L (17-59); Bilirubin,Total 0.4 mg/dl (0.2-1.3); Blood Urea Nitrogen 15 mg/dl (9-20); Carbon Dioxide 26 mmol/L (22.0-30.0); Creatinine Clearance Estimated 104 mL/min (50-200); Estimated Glomerular Filt Rate 82 ml/min (>60); GFR (African American) 100 ML/MIN (>60); Globulin 3.2 g/dL (1.3-3.2); Total Protein,Serum 7.4 g/dl (6.3-8.2)
[2021-05-08 09:31] LABS: Calcium 9.3 mg/dl (8.4-10.2); Glucose 180 mg/dl (74-100)
[2021-05-08 09:32] LABS: Lipase 110 U/L (23-300)
--- NOTE | 2021-05-08 09:35 | PC.NURSE ---
radiology in room at this time
[2021-05-08 09:42] LABS: NT Pro Brain Natriuretic Pep. 544 pg/mL (0-125)
[2021-05-08 09:43] LABS: Troponin I < 0.01 ng/ml (0.00-0.034)
[2021-05-08 09:44] LABS: Lactic Acid 2.8 mmol/L (0.7-2.1)
--- NOTE | 2021-05-08 09:46 | CT_ITS ---
PROCEDURE INFORMATION: Exam: CT Abdomen And Pelvis With Contrast Exam date and time: 05/08/2021 9:46 AM Age: 75 years old Clinical indication: Abdominal pain; Generalized; Additional info: N/v TECHNIQUE: Imaging protocol: Computed tomography of the abdomen and pelvis with contrast. Radiation optimization: All CT scans at this facility use at least one of these dose optimization techniques: automated exposure control; mA and/or kV adjustment per patient size (includes targeted exams where dose is matched to clinical indication); or iterative reconstruction. Contrast material: ISOVUE 370; Contrast volume: 75 ml; Contrast route: IV; COMPARISON: CT CHEST WO CON 04/23/2021 2:42 PM FINDINGS: Lungs: Emphysematous changes at the lung bases. Airspace stranding at the lung bases is most likely atelectasis. Pleural spaces: Tiny left pleural effusion. Heart: Mild diffuse enlargement of the heart again noted. Liver: Normal. No mass. Gallbladder and bile ducts: Normal. No calcified stones. No ductal dilation. Pancreas: Diffuse atrophy again noted. No acute changes or focal lesions. Spleen: Normal. No splenomegaly. Adrenal glands: Again noted is the 3.4 cm fat containing lesion of the left adrenal gland. The size and appearance is unchanged since the previous CT. The right adrenal gland is normal. Kidneys and ureters: Normal. No hydronephrosis. Stomach and bowel: Unremarkable. No obstruction. No mucosal thickening. Appendix: No evidence for appendicitis. Normal diameter. No inflammation. Intraperitoneal space: Unremarkable. No free air. No significant fluid collection. Vasculature: Unremarkable. No abdominal aortic aneurysm. Lymph nodes: Unremarkable. No enlarged lymph nodes. Urinary bladder: Unremarkable as visualized. Reproductive: Unremarkable as visualized. Bones/joints: Unremarkable. No acute fracture. Soft tissues: Unremarkable. IMPRESSION: 1. Left adrenal mass, stable in the interval. 2. No other acute changes in the abdomen or pelvis.
[2021-05-08 13:29] LABS: Reflex Lactic Add Lactic Reflex
--- NOTE | 2021-05-08 13:47 | HMH.PHAVTE ---
[facility] Pharmacy VTE Monitoring - Patient Demographics Admission date: 05/08/21 Report Date: 05/08/21 Time: 13:47 Allergies/Adverse Reactions: Patient Allergies Penicillins Allergy (Verified 03/13/21 11:46) Hives Height: 1.85 m Weight: 113.398 kg Patient Problems: Current Active Problems Atrial fibrillation with RVR (Acute) Congestive heart failure (Acute) Acute respiratory failure with hypoxia (Acute) - VTE Risk Labs: VTE Related Lab Results Hgb 15.6 g/dL (14.1-18.0) 05/08/21 09:00 Hct 47.6 % (42.0-52.0) 05/08/21 09:00 Plt Count 164 K/mm3 (142-424) 05/08/21 09:00 BUN 15 mg/dl (9-20) 05/08/21 09:00 Creatinine 0.90 mg/dl (0.66-1.25) 05/08/21 09:00 Estimated Creat Clear 104 mL/min (50-200) 05/08/21 09:00 Clinical Trial Participant: No - Prophylaxis VTE Prophylaxis Ordered?: Yes Types of VTE Prophylaxis: IPCS Knee High, Pharmacological (ELIQUIS)
--- NOTE | 2021-05-08 14:06 | PC.NURSE ---
called report to gabe RIVERA on second floor
[2021-05-08 14:17] LABS: Lactic Acid Follow Up (RFLX 1) 1.4 mmol/L (0.7-2.1)
--- NOTE | 2021-05-08 16:27 | PC.NURSE ---
I have attempted to call patients to have her bring in patients home meds but have been unable to contact her. Patient is aware that home meds are needed.
[2021-05-08 16:29] LABS: POC Glucose,Bedside 193 (70-110)
--- NOTE | 2021-05-08 16:29 | PC.NURSE ---
Patient is alert and oriented x4. Lungs are clear, he remains on 2L NC w/O2 sats running in the upper 90's. He has been afib on telemetry. He utilizes a urinal at the bedside.= in
--- NOTE | 2021-05-08 16:31 | PC.NURSE ---
Patient is alert and oriented x4, no lethargy noted. Lungs are clear, bowel sounds active x4. He remains on 2L NC w/O2 sats running in the upper 90's. He has been afib on telemetry. He utilizes a urinal at the bedside independently. No nausea or vomiting since arriving to the floor and he denies any complaints. Appetite has been very good. Glucose was 193 at dinner, 2 units of insulin administered per SSI. He is endentulous but denies trouble chewing. Will continue to monitor.
--- NOTE | 2021-05-08 16:57 | HMH.PHAINT ---
MEDICATION RECONCILIATION COMPLETED ON PATIENT USING EXTERNAL FILL HISTORY FROM PHARMACY. -CHIDI OSMAN, JAYDED
[2021-05-08 21:46] LABS: POC Glucose,Bedside 131 (70-110)
[2021-05-09] VITALS: BP 90/50; PULSE 80; RESP 16; TEMP 37.4; O2SAT 95
[2021-05-09 00:01] VITALS: O2SAT 95
--- NOTE | 2021-05-09 03:35 | PC.NURSE ---
Patient has been alert & oriented x4. He has had no complaints this shift. He has rested well through the night. Patient stated his last BM was on 05/08 that morning, bowel sounds are active in all 4 quadrants. Lung sounds are diminished and had scattered expiratory wheezing throughout. Patient has remained in controlled Afib on telemetry and remains on 2L NC. Will continue to monitor. Call light within reach. VSS.
[2021-05-09 04:00] VITALS: BP 94/57; PULSE 60; PULSE 66; RESP 18; TEMP 36.6; O2SAT 95
[2021-05-09 04:40] VITALS: BMI 30.4
[2021-05-09 05:36] LABS: POC Glucose,Bedside 110 (70-110)
[2021-05-09 05:58] LABS: Basophils # 0.1 K/mm3 (0-0.2); Basophils % 0.8 % (0.1-2.0); Eosinophils # 0.1 K/mm3 (0.0-0.4); Eosinophils % 1.2 % (0.1-12.0); Hematocrit 47.2 % (42.0-52.0); Hemoglobin 15.5 g/dL (14.1-18.0); Lymphocytes # 3.4 K/mm3 (0.7-4.5); Mean Corpuscular HGB Conc 32.7 g/dL (31.8-35.4); Mean Corpuscular Hemoglobin 28.3 pg (27.0-31.2); Mean Corpuscular Volume 86.4 fl (80-94); Mean Platelet Volume 8.5 fl (7.4-10.4); Monocytes # 0.5 K/mm3 (0.1-1.0); Monocytes % 4.8 % (1.7-9.3); Neutrophils # 7.2 K/mm3 (1.8-7.8); Neutrophils % 63.2 % (37.0-80.0); Platelet Count 177 K/mm3 (142-424); Red Blood Count 5.47 M/mm3 (4.60-6.20); Red Cell Distribution Width 15.1 % (11.5-17.5); White Blood Count 11.4 K/mm3 (4.8-10.8)
[2021-05-09 06:04] LABS: Anion Gap 12.4 mEq/L (5-15); Blood Urea Nitrogen 21 mg/dl (9-20); Calcium 8.7 mg/dl (8.4-10.2); Carbon Dioxide 31 mmol/L (22.0-30.0); Chloride 101 mmol/L (98-107); Creatinine Clearance Estimated 96 mL/min (50-200); Estimated Glomerular Filt Rate 73 ml/min (>60); GFR (African American) 88 ML/MIN (>60); Glucose 114 mg/dl (74-100); Potassium 4.4 mmoL/L (3.5-5.1); Sodium 140 mmol/L (136-145)
--- NOTE | 2021-05-09 07:07 | HMH.HPDC ---
General - General Admission date:: 05/08/21 Discharge date: 05/09/21 *Admission Date: 05/08/21 *Chief complaint: Vomiting and weakness *History of present illness: 75-year-old male presented to the emergency department yesterday morning after sudden onset of vomiting in the morning followed by profuse weakness and diaphoresis. Patient claimed he was so weak he could hardly move. He arrived at the emergency department where diagnosis of A. fib with rapid ventricular response was made and other findings suggestive of acute congestive heart failure. Patient denies shortness of breath or angina. He has a history of coronary artery disease status post CABG procedure approximately 10 years ago. Patient has hypertension, diabetes, and is a cigarette smoker. Patient also has COPD. Patient was given a bolus dose of IV Cardizem which brought his pulse rate down into the 80s. Patient takes metoprolol at home and on admission this was increased to 50 mg twice daily. Since admission yesterday afternoon patient's pulse has been under 100. Patient himself has not recognized any palpitations. Patient has no personal history of atrial fibrillation. It has been many years since he has seen a structural iron erector. [facility] History Medical History: Reports:: Asthma, Congestive Heart Failure, Chronic Obstructive Pulmonary Disease (COPD), Diabetes Mellitus Type 2, Gastroesophageal Reflux Disease(GERD), Hyperlipidemia, Hypertension, Myocardial Infarction Denies:: Cancer, MRSA *Have you ever received a pneumonia vaccine?: Yes *Have you received a flu vaccine this season?: No Other Medical History: Reports: Arthritis, Cataracts, Sinus Problems, Other Laterality Cases: Right: Arthroscopy Knee Other Surgeries: Yes: CABG, Cardiac Surgery, Colonoscopy, Coronary Stent, Open Heart Surgery Amputation: No Fractures: No - *Social History Last grade of school completed: High school graduate Smoking Status: Current every day smoker Tobacco Type: cigarettes # Packs/Day (cigarettes): 1 #Yrs smoked (if former smoker): 62 Alcohol Intake: never Alcohol Intake Frequency:: other Substance Use Type: denies use *Occupational Status:: retired Housing: house Household Members: spouse *Travel in the last 8 weeks: None Family Hx:: Diabetes Review of Systems - Constitutional Reports lack of energy, Denies anorexia, Denies body ache(s) - Eyes Denies blurry vision - ENT Denies difficulty swallowing - *Cardiovascular Reports excessive sweating, Denies chest pain, Denies chest pain at rest, Denies chest pain with activity, Denies shortness of breath with activity, Denies irregular heart rhythm - *Respiratory Denies chest congestion, Denies cough, Denies shortness of breath - *Gastrointestinal Reports vomiting, Denies belching, Denies bloating - *Genitourinary Denies difficulty urinating - *Musculoskeletal Denies joint pain - Integumentary/Breasts Denies hair loss - *Neurologic Denies abnormal walking - Psychiatric Denies lack of enjoyment - Endocrine Reports excessive sweating Exam Vital signs and Labs for Last 24 Hours: Temp Pulse Resp BP Pulse Ox 97.9 F 66 18 94/57 L 95 05/09/21 04:00 05/09/21 04:00 05/09/21 04:00 05/09/21 04:00 05/09/21 04:00 Laboratory Results - last 24 hr 05/08/21 09:00: WBC 9.8, RBC 5.51, Hgb 15.6, Hct 47.6, MCV 86.4, MCH 28.3, MCHC 32.8, RDW 15.3, Plt Count 164, MPV 7.9, Neut % (Auto) 61.0, Lymph % (Auto) 31.9, [place] % (Auto) 5.2, Eos % (Auto) 1.4, Baso % (Auto) 0.5, Neut # (Auto) 6.0, Lymph # (Auto) 3.1, [place] # (Auto) 0.5, Eos # (Auto) 0.1, Baso # (Auto) 0.1 05/08/21 09:00: Sodium 142, Potassium 4.1, Chloride 107, Carbon Dioxide 26, Anion Gap 13.1, BUN 15, Creatinine 0.90, Estimated Creat Clear 104, Estimated GFR 82, Est GFR ( Amer) 100, Glucose 180 H, Calcium 9.3, Total Bilirubin 0.4, AST 35, ALT 37, Alkaline Phosphatase 102, Troponin I < 0.01, Total Protein 7.4, Albumin 4.2, Globulin 3.2, Albumin/Globulin
[2021-05-09 07:11] VITALS: BP 114/63; PULSE 70; RESP 20; TEMP 36.6; O2SAT 91
[2021-05-09 08:00] VITALS: PULSE 74
--- NOTE | 2021-05-09 10:32 | HMH.CNCARD ---
History of Present Illness Consult date: 05/09/21 Requesting physician: Amando Claire Consult reason: atrial fibrillation Chief complaint: Atrial fibrillation History of present illness: 75-year-old male presented to the emergency room yesterday with progressively worsening weakness and diaphoresis. Patient states he had also been vomiting at home prior to admission to the ED. Upon admission to the ED patient was noted to be in atrial fibrillation with RVR. Patient denies any history of atrial fibrillation. Patient was then started on Cardizem drip which decreased patient's heart rate to the 80s. Cardizem drip was stopped at that time. Patient was started on diltiazem per PCP. Patient was also started on Eliquis per PCP for anticoagulation and decreased risk for stroke. Patient denied chest pain, tightness or pressure. Patient denied shortness of breath. Patient does have history of COPD and is oxygen dependent. Patient does continue to smoke at least 1 pack/day. Tobacco cessation advised and counseled. No swelling noted on the lower extremities. Patient does states for the last few days he has been having a cough with production. This is managed by PCP. Patient does have history of CABG 10 years ago at [facility] in [place]. Patient states last time he followed up with cardiology was several years ago. Cardiology was consulted during this hospital stay to establish care with patient. Due to this new onset of atrial fibrillation and starting anticoagulant, patient may benefit from undergoing cardioversion in a few weeks if patient remains in atrial fib. Patient does have history of hypertension and hyperlipidemia. Patient has history of diabetes which is managed by PCP. Patient was started on metoprolol for heart rate and blood pressure control via PCP. Echocardiogram was obtained. Preliminary results revealed EF 50 to 55% with trace of tricuspid valve regurgitation. Waiting official echocardiogram results. associate spa director reveals atrial fibrillation with a heart rate 70 bpm. Discussed plan of care with Dr. Mercer. Orders and recommendations were received from Dr. Mercer. Due to new onset of atrial fibrillation patient was started on anticoagulant per PCP. Patient is currently on heart rate and blood pressure control medication. This is managed by PCP. Discussed with patient the risk of atrial fibrillation along with the risk of stroke. Patient verbalized understanding. Obtain echocardiogram to assess LV function and valve status. No further cardiac testing recommendations recommended during this hospital stay. On an outpatient basis, patient may need to have cardioversion due to atrial fibrillation and Lexiscan Myoview, if patient remains in atrial fibrillation. Please notify cardiology of any changes in patient status. Thank you for allowing cardiology to participate in the care of this patient. [facility] History I have reviewed the patient's past medical history: Yes Medical History: Reports:: Asthma, Congestive Heart Failure, Chronic Obstructive Pulmonary Disease (COPD), Diabetes Mellitus Type 2, Gastroesophageal Reflux Disease(GERD), Hyperlipidemia, Hypertension, Myocardial Infarction Denies:: Cancer, MRSA *Have you ever received a pneumonia vaccine?: No *Have you received a flu vaccine this season?: No Other Medical History: Reports: Arthritis, Cataracts, Sinus Problems, Other Laterality Cases: Right: Arthroscopy Knee Other Surgeries: Yes: CABG, Cardiac Surgery, Colonoscopy, Coronary Stent, Open Heart Surgery Amputation: No Fractures: No - *Social History Last grade of school completed: High school graduate Smoking Status: Current every day smoker Tobacco Type: cigarettes # Packs/Day (cigarettes): 1 #Yrs smoked (if former smoker): 62 Alcohol Intake: never Alcohol Intake Frequency:: other Substance Use Type: denies use *Occupational Status:: retired Housing: house Household Members: spouse *Travel in t
== END 2021-05-09 08:43 | disposition home or self-care (01) ==
LOC: ER 12:30 → 2ND 14:13
PROVIDERS: Admitting Provider Family Medicine; Emergency Provider Family Medicine; PCP Family Medicine; Visit Provider Family Medicine
DX: I48.91 Unspecified atrial fibrillation (principal); J96.01 Acute respiratory failure with hypoxia; I50.31 Acute diastolic (congestive) heart failure; I11.0 Hypertensive heart disease with heart failure; J44.9 Chronic obstructive pulmonary disease, unspecified; E11.9 Type 2 diabetes mellitus without complications; K21.9 Gastro-esophageal reflux disease without esophagitis; E78.5 Hyperlipidemia, unspecified; I25.2 Old myocardial infarction; M19.90 Unspecified osteoarthritis, unspecified site; Z95.5 Presence of coronary angioplasty implant and graft; F17.210 Nicotine dependence, cigarettes, uncomplicated; Z95.1 Presence of aortocoronary bypass graft; Z71.6 Tobacco abuse counseling; Z99.81 Dependence on supplemental oxygen; Z91.19 Patient's noncompliance with other medical treatment and regimen
CPT/HCPCS: 71045; 74177; 80048; 80053; 82962; 83605; 83690; 83880; 84484; 85025; 93005; 93306; 94760; 94761; 96374; 96375; 99284; 99291; G0378; J2405; Q9967; U0003

== ENCOUNTER → 2021-05-22 11:08 | Outpatient (CLI) | payer MEDICARE, OTHER, SELFPAY ==
--- NOTE | 2021-05-22 11:09 | NM_ITS ---
APPROVED REPORT Exam: Nuclear Stress Test Indication: chest pain..abnormal ekg Patient Location: Outpatient Stress Tech: Keila Rausch NE Tech:PRISCILLA Muro RT(R)(N) Ht: 6 ft 2 in Wt: 300 lbs HR: 47 bpm BP: 121/49 mmHg BSA: 2.58 m2 BMI: 38.5 History: chest pain..abnormal ekg Procedure: Patient received a 0.4 mg of intravenous Lexiscan, resting heart rate 47 bpm, resting blood pressure 121/49 mmHg, with Lexiscan maximum heart rate achived was 68 bpm which is Less than 85 % of the maximum predicted heart rate and blood pressure was 103/51 mmHg. With Lexiscan, patient denied any complaint of chest pain. Electrocardiogram Resting electrocardiogram shows sinus rhythm, with Lexiscan there is less than 1.[address] segment depression noted from the baseline EKG. The EKG portion of the Lexiscan is nondiagnostic. Cardiac Stress and Resting SPECT Images: Cardiac Stress and Resting SPECT images were obtained using technetium 99m Myoview 32.2 mCi stress and 10.48 mCi at rest. Gated SPECT for analysis of segmental wall motion and calculation of the ejection fraction also done. Prone images were also obtained. Cardiac stress and resting SPECT images show uniform myocardial activity without segmental perfusion abnormality, computer derived ejection fraction is 52% with no regional wall motion abnormality, however there is transient ischemic dilatation of the left ventricle seen, raising the concerns for presence of balanced ischemia. Conclusion: 1. The EKG portion of the Lexiscan is nondiagnostic. 2. No scintigraphic evidence of reversible ischemia seen, computer derived ejection fraction is 52% with no obvious regional wall motion abnormality, right ventricle is normal size and contractility, however there is transient ischemic dilatation of the left ventricle seen, raising the concerns for presence of balanced ischemia, other causes for transient ischemic dilatation includes microvascular disease, elevated left ventricular end-diastolic pressure, hypertensive heart disease and diabetes. Clinical correlation is recommended. Electronically signed by : Paco Suresh, 05/22/2021 15:55:03
--- NOTE | 2021-05-22 14:06 | CA_ITS ---
APPROVED REPORT Exam: Pharmacologic Technologist: Keila Rausch, Ht: 6 ft 1 in Wt: 244 lbs BSA: 2.34 m2 HR: 47 bpm BP: 121/49 mmHg Medical History Medications: Aspirin,,,,, Losartan,,,,, Metoprolol Tartrate,,,,, Atorvastatin,,,,, TAMSULOSIN,,,,, INSULIN,,,,, INSULIN,,,,, Montelukast,,,,, Finasteride,,,,, CetIRIZINE,,,,, Apixaban,,,,, OmPERAZOLE,,,,, Stress Test Details Test: LEXISCAN HR Resting HR: 52 bpm Max Heart Rate (APMHR): 146.615142 bpm Max HR Achieved: 70 bpm Target HR (85% APMHR): 124.505339 bpm % of APMHR: 47.95 Recovery HR: 59 bpm BP Resting BP: 121/49 mmHg Max BP: 121/49 mmHg Recovery BP: 114.0/50.0 mmHg ECG Resting ECG: Sinus teagan, RBBB, LPFB Clinical Exercise duration: 04:02 min Highest Stage Achieved: Stress ECG Conclusion Symptoms: SOA, malaise, VELASQUEZ, stomach discomfort. No CP. Arrhythmias/Ectopy: None ST-T Changes: No significant changes. Conclusion: Unremarkable Lexiscan stress. Myoview images reported separately. Electronically signed by : Paco Suresh, 05/22/2021 15:42:01
== END ==
PROVIDERS: PCP Family Medicine; Visit Provider Internal Medicine Cardiovascular Disease
DX: R06.00 Dyspnea, unspecified; I25.810 Atherosclerosis of coronary artery bypass graft(s) without angina pectoris; R94.31 Abnormal electrocardiogram [ECG] [EKG]; R00.1 Bradycardia, unspecified; I50.31 Acute diastolic (congestive) heart failure; I50.9 Heart failure, unspecified; E11.40 Type 2 diabetes mellitus with diabetic neuropathy, unspecified; E66.9 Obesity, unspecified; F17.200 Nicotine dependence, unspecified, uncomplicated; Z95.1 Presence of aortocoronary bypass graft; Z79.4 Long term (current) use of insulin
CPT/HCPCS: 78452; 93017; A9502; J2785

== ENCOUNTER → 2021-06-04 09:39 | Outpatient (CLI) | payer MEDICARE, OTHER, SELFPAY ==
[2021-06-04 10:35] LABS: Basophils # 0.1 K/mm3 (0-0.2); Basophils % 0.5 % (0.1-2.0); Eosinophils # 0.1 K/mm3 (0.0-0.4); Eosinophils % 0.8 % (0.1-12.0); Hematocrit 46.1 % (42.0-52.0); Lymphocytes # 1.9 K/mm3 (0.7-4.5); Mean Corpuscular HGB Conc 32.5 g/dL (31.8-35.4); Mean Corpuscular Hemoglobin 28.5 pg (27.0-31.2); Mean Corpuscular Volume 87.6 fl (80-94); Mean Platelet Volume 8.4 fl (7.4-10.4); Monocytes # 0.6 K/mm3 (0.1-1.0); Monocytes % 4.4 % (1.7-9.3); Neutrophils # 11.8 K/mm3 (1.8-7.8); Neutrophils % 81.2 % (37.0-80.0); Platelet Count 176 K/mm3 (142-424); Red Blood Count 5.27 M/mm3 (4.60-6.20); Red Cell Distribution Width 15.5 % (11.5-17.5); White Blood Count 14.5 K/mm3 (4.8-10.8)
[2021-06-04 11:11] LABS: Anion Gap 14.2 mEq/L (5-15); Blood Urea Nitrogen 16 mg/dl (9-20); Carbon Dioxide 29 mmol/L (22.0-30.0); Chloride 101 mmol/L (98-107); Estimated Glomerular Filt Rate 82 ml/min (>60); GFR (African American) 100 ML/MIN (>60); Glucose 140 mg/dl (74-100); Potassium 5.2 mmoL/L (3.5-5.1); Sodium 139 mmol/L (136-145)
== END ==
PROVIDERS: Visit Provider Internal Medicine Cardiovascular Disease
DX: F17.200 Nicotine dependence, unspecified, uncomplicated (principal); I25.810 Atherosclerosis of coronary artery bypass graft(s) without angina pectoris; I48.0 Paroxysmal atrial fibrillation; I50.31 Acute diastolic (congestive) heart failure; I50.9 Heart failure, unspecified; R00.1 Bradycardia, unspecified; Z95.1 Presence of aortocoronary bypass graft; Z01.812 Encounter for preprocedural laboratory examination; Z20.822 Contact with and (suspected) exposure to COVID-19
CPT/HCPCS: 36415; 80048; 85025; U0003

== ENCOUNTER 2021-06-06 08:37 | Day surgery (SDC) | payer MEDICARE, OTHER, SELFPAY ==
[2021-06-06] VITALS (19 sets, daily range): BP systolic 112–131; BP diastolic 57–73; PULSE 56–77; RESP 13–18; TEMP 36.2; O2SAT 92–98; BMI 31.9
--- NOTE | 2021-06-06 07:15 | IR_ITS ---
APPROVED REPORT Patient Location: Outpatient Parts Specialist: PRISCILLA Christine RT (R) PROCEDURES Left heart catheterization Left ventriculogram Selective coronary angiogram Selective engagement of the left internal mammary artery which supplies the LAD and also supplies a first diagonal artery and a T manner Selective engagement of the saphenous vein graft to the circumflex artery INDICATION Coronary disease, History of coronary bypass surgery, Angina pectoris, High risk abnormal Myoview, Informed consent was obtained prior to the procedure. COMPLICATIONS NONE Estimated Blood Loss: LESS THAN 10 ML TECHNIQUE One percent lidocaine used to anesthetize the right groin. The right femoral artery was accessed via the Seldinger technique and a 5 Lithuanian sheath was placed in the right femoral artery. A JL 4, JR4 catheter were used to perform left heart catheterization, left ventriculogram selective coronary angiography as well as selective engagement of the single saphenous vein graft and the left internal mammary artery which then had a T graft supplying a first diagonal artery. At the end of the procedure the patient was transferred to the postop holding area in stable condition for sheath removal. ANGIOGRAPHIC RESULTS The left main artery Normal The left anterior descending artery Ostially occluded The circumflex artery Is dominant with an ostial proximal 50% stenosis. Large first obtuse marginal artery has competitive flow from the vein graft. The second obtuse marginal artery is 1.5 mm in diameter and has diffuse 30% stenoses The right coronary artery Is a nondominant yet still large vessel problem possibly even codominant. The vessel has proximal and mid vessel 30 to 40% stenoses. The distal branches are 2-1/2 to 3 mm in diameter and appear to be the posterior descending artery and posterior lateral branch both of which are widely patent with 20 to 30% diffuse stenoses The SANDERS ventriculogram reveals Normal 60% The left ventricular end-diastolic pressure 10 mmHg The proximal HENRY graft is widely patent. It then bifurcates and supplies the first diagonal artery with wide patency. The HENRY graft itself anastomoses to the mid LAD and is widely patent. The LAD is a large vessel widely patent with mild diffuse disease Saphenous vein graft to large first obtuse marginal arteries widely patent IMPRESSION Adequate three-vessel coronary bypass grafting as described above Normal ejection fraction Normal left ventricular NaSal pressure PLAN 1. Medical management Electronically signed by : Darell Chavez MD 06/06/2021 10:38:38
--- NOTE | 2021-06-06 11:52 | SUR.PHASEII ---
PT TRANSFERED TO POSTOP VIA STRETCHER PER AURE MOCK RN. BEDSIDE REPORT TO BE GIVEN TO POST OP NURSE PER AURE
== END 2021-06-06 13:45 | disposition home or self-care (01) ==
LOC: CATHLAB 08:40
PROVIDERS: PCP Family Medicine; Visit Provider Internal Medicine
DX: I25.728 Atherosclerosis of autologous artery coronary artery bypass graft(s) with other forms of angina pectoris; I25.118 Atherosclerotic heart disease of native coronary artery with other forms of angina pectoris; I48.0 Paroxysmal atrial fibrillation; I50.31 Acute diastolic (congestive) heart failure; Z95.1 Presence of aortocoronary bypass graft; F17.210 Nicotine dependence, cigarettes, uncomplicated; Z79.01 Long term (current) use of anticoagulants; E11.40 Type 2 diabetes mellitus with diabetic neuropathy, unspecified; I11.0 Hypertensive heart disease with heart failure; I25.2 Old myocardial infarction; Z79.899 Other long term (current) drug therapy; Z79.4 Long term (current) use of insulin; Z95.5 Presence of coronary angioplasty implant and graft
CPT/HCPCS: 93459; 99152; C1725; C1769; C1894; J1644; Q9967

== ENCOUNTER 2021-06-28 09:04 | Inpatient (IN) | payer MEDICARE, OTHER, SELFPAY ==
[2021-06-28] VITALS (15 sets, daily range): BP systolic 88–143; BP diastolic 37–98; PULSE 39–84; RESP 18–28; TEMP 36.8–37.6; O2SAT 88–95; BMI 31.4; BMI 30.1
--- NOTE | 2021-06-28 09:07 | ECG_ITS ---
APPROVED REPORT Exam: Resting ECG HR:56 bpm ECG Measurements Heart Rate 56 AXES QRSd 150 QRS 108 QT 520 T 80 QTc 501 Conclusion Atrial fibrillation with slow ventricular response Right bundle branch block Abnormal ECG Electronically signed by : Amando Ojeda MD 06/29/2021 17:09:07
--- NOTE | 2021-06-28 09:29 | XR_ITS ---
PROCEDURE INFORMATION: Exam: XR Chest Exam date and time: 06/28/2021 9:29 AM Age: 75 years old Clinical indication: Shortness of breath; Prior surgery; Additional info: SOB covid positive TECHNIQUE: Imaging protocol: XR of the chest. Views: 1 view. COMPARISON: CT ANGIO CHEST PE PROTOCOL 06/28/2021 10:15 AM FINDINGS: Median sternotomy changes with multiple fractured wires. Cardiac silhouette is not significantly enlarged. Mild burden of patchy bilateral airspace opacities. No pleural effusion or pneumothorax. IMPRESSION: Mild burden of multifocal pneumonia.
[2021-06-28 09:37] LABS: Influenza A, PCR Not Detected (NotDetected); Influenza B, PCR Not Detected (NotDetected)
--- NOTE | 2021-06-28 09:37 | CT_ITS ---
PROCEDURE INFORMATION: Exam: CTA Chest With Contrast Exam date and time: 06/28/2021 9:37 AM Age: 75 years old Clinical indication: Shortness of breath; Prior surgery; Surgery date: 6+ months; Surgery type: Open heart; Additional info: SOB TECHNIQUE: Imaging protocol: Computed tomographic angiography of the chest with contrast. 3D rendering (Not supervised by radiologist): MIP and/or 3D reconstructed images were created by the technologist. Radiation optimization: All CT scans at this facility use at least one of these dose optimization techniques: automated exposure control; mA and/or kV adjustment per patient size (includes targeted exams where dose is matched to clinical indication); or iterative reconstruction. Contrast material: ISO 370; Contrast volume: 70 ml; Contrast route: INTRAVENOUS (IV); COMPARISON: CT CHEST WO CON 04/23/2021 2:42 PM FINDINGS: Pulmonary arteries: No segmental or larger pulmonary emboli. Aorta: Moderate aortic and branch vessel atherosclerosis. Lungs: There is a mild burden of bilateral ground-glass and consolidative airspace opacities. Additionally, several pulmonary nodules are present, for example a 0.7 cm nodule in the left upper lobe on image 51 and an 0.8 cm nodule in the left upper lobe on image 40. Moderate centrilobular emphysema. Pleural spaces: No pneumothorax. No pleural effusion. Heart: Aortic annular and coronary artery calcifications are present. Lymph nodes: Multiple mildly enlarged mediastinal and hilar lymph nodes, likely reactive. Multiple calcified mediastinal and hilar lymph nodes are likely the sequelae of old granulomatous disease. 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 Bones/joints: No acute fracture. Soft tissues: Unremarkable. IMPRESSION: 1. No segmental or larger pulmonary emboli. 2. Mild burden of multifocal pneumonia. 3. Multiple pulmonary nodules. While these may be inflammatory, follow-up per Fleischner criteria is recommended. For patients at low risk (minimal or absent history of smoking and of other known risk factors), recommend CT Chest at 3-6 months, then consider CT Chest at 18-24 months. For patients at high risk (history of smoking or of other known risk factors), recommend CT Chest at 3-6 months, then CT Chest at 18-24 months. (Reference: Kenny) REFERENCES: Kenny Carney et al. Guidelines for Management of Incidental Pulmonary Nodules Detected on CT Images: From the Fleischner Society 2017. Radiology. 2017;284(1):228-243.
[2021-06-28 09:39] LABS: Chloride 99 mmol/L (98-107); Potassium 4.1 mmoL/L (3.5-5.1); Sodium 137 mmol/L (136-145)
--- NOTE | 2021-06-28 09:39 | HMH.EDSOB ---
ED Disposition Clinical Impression: COVID-19 with pulmonary comorbidity, Obesity (BMI 30.0-34.9), Hx of CABG, [place] (acute kidney injury) Diabetes mellitus with diabetic neuropathy Qualifiers: Diabetes mellitus type: type 2 Diabetes mellitus meterman insulin use: unspecified meterman insulin use status Qualified Code(s): E11.40 - Type 2 diabetes mellitus with diabetic neuropathy, unspecified A-fib Qualifiers: Atrial fibrillation type: longstanding persistent Qualified Code(s): I48.11 - Longstanding persistent atrial fibrillation Disposition: Admitted As Inpatient Condition on Discharge: Good - Critical Care Critical Care Time: No Attestation: On , the high probability of a clinically significant, sudden or life threatening deterioration of the following system(s) required my full and direct attention, intervention and personal management. The time I documented below is in addition to time spent performing reported procedures but includes the following listed in this critical care notation. Medical Decision Making - Medical Records Medical records reviewed: Yes: I reviewed the patient's medical records. - Edmund Inquiry Pt receiving controlled substance: No Vital Signs: 06/28/21 09:04 06/28/21 09:31 06/28/21 10:01 Temperature 99.7 F H Temperature Source Oral Pulse Rate 52 L 40 L Pulse Rate [Radial] 60 Respiratory Rate 28 H 18 18 Blood Pressure 105/56 L 99/37 L Blood Pressure [Right Arm] 108/42 L Blood Pressure Mean 72 61 Blood Pressure Mean [Right Arm] 64 Blood Pressure Position [Right Arm] Sitting 02 Sat by Pulse Oximetry 93 L 95 93 L Oxygen Delivery Method Nasal Cannula Nasal Cannula Nasal Cannula Oxygen Flow Rate (LPM) 3 3 3 06/28/21 10:33 06/28/21 11:01 06/28/21 11:26 Temperature Temperature Source Pulse Rate 45 L 41 L 44 L Pulse Rate [Radial] Respiratory Rate 22 20 20 Blood Pressure 88/40 L 107/51 L 119/46 L Blood Pressure [Right Arm] Blood Pressure Mean 63 73 82 Blood Pressure Mean [Right Arm] Blood Pressure Position [Right Arm] 02 Sat by Pulse Oximetry 93 L 93 L 95 Oxygen Delivery Method Nasal Cannula Oxygen Flow Rate (LPM) 3 - Lab Data Lab results reviewed: Yes: I reviewed the patient's lab results. Lab Results 06/28/21 09:09: SARS-CoV-2 (PCR) Detected A, Influenza A Untype (PCR) Not detected, Influenza Type B (PCR) Not detected 06/28/21 09:18: WBC 5.5, RBC 5.23, Hgb 14.9, Hct 47.2, MCV 90.2, MCH 28.5, MCHC 31.6 L, RDW 15.4, Plt Count 132 L, MPV 9.1, Neut % (Auto) 77.1, Lymph % (Auto) 12.9, Titus % (Auto) 9.1, Eos % (Auto) 0.1, Baso % (Auto) 0.9, Neut # (Auto) 4.3, Lymph # (Auto) 0.7, Titus # (Auto) 0.5, Eos # (Auto) 0.0, Baso # (Auto) 0.1 06/28/21 09:18: Sodium 137, Potassium 4.1, Chloride 99, Carbon Dioxide 26, Anion Gap 16.1 H, BUN 38 H, Creatinine 1.40 H, Estimated Creat Clear 71, Estimated GFR 50 L, Est GFR ( Amer) 60, Glucose 146 H, Calcium 7.8 L, Total Bilirubin 0.2, AST 74 H, ALT 48, Alkaline Phosphatase 84, Troponin I 0.10 H, Total Protein 6.6, Albumin 3.5, Globulin 3.1, Albumin/Globulin Ratio 1.1 06/28/21 09:18: Lactate 1.2 06/28/21 09:18: Procalcitonin 0.203 06/28/21 10:00: Urine Color Camryn, Urine Appearance Sl cloudy, Urine pH 5.5, Ur Specific [place] >= 1.030, Urine Protein 1+, Urine Glucose (UA) 3+, Urine Ketones Negative, Urine Blood 1+, Urine Nitrate Negative, Urine Bilirubin Negative, Urine Urobilinogen 0.2, Ur Leukocyte Esterase Negative, Urine RBC 5-10, Urine WBC None, Ur Squamous Epith Cells Occasional, Urine Bacteria None Result diagrams: 06/28/21 09:18 06/28/21 09:18 Orders (Tests/Meds): ED MEDICATIONS Generic Name Dose Route Start Last Admin Trade Name Freq PRN Reason Stop Dose Admin Acetaminophen 650 mg 06/28/21 12:01 Acetaminophen 325mg Tab PO 07/28/21 12:00 Q6HP PRN Mild pain,fever,headache Ascorbic Acid 500 mg 06/28/21 13:00 Ascorbic Acid 500mg Tab PO 07/28/21 12:59 QID CHAYA Dexame
[2021-06-28 09:41] LABS: Basophils # 0.1 K/mm3 (0-0.2); Basophils % 0.9 % (0.1-2.0); Eosinophils % 0.1 % (0.1-12.0); Hematocrit 47.2 % (42.0-52.0); Hemoglobin 14.9 g/dL (14.1-18.0); Lymphocytes # 0.7 K/mm3 (0.7-4.5); Lymphocytes % 12.9 % (10-50); Mean Corpuscular HGB Conc 31.6 g/dL (31.8-35.4); Mean Corpuscular Hemoglobin 28.5 pg (27.0-31.2); Mean Corpuscular Volume 90.2 fl (80-94); Mean Platelet Volume 9.1 fl (7.4-10.4); Monocytes # 0.5 K/mm3 (0.1-1.0); Monocytes % 9.1 % (1.7-9.3); Neutrophils # 4.3 K/mm3 (1.8-7.8); Neutrophils % 77.1 % (37.0-80.0); Platelet Count 132 K/mm3 (142-424); Red Blood Count 5.23 M/mm3 (4.60-6.20); Red Cell Distribution Width 15.4 % (11.5-17.5); White Blood Count 5.5 K/mm3 (4.8-10.8)
[2021-06-28 09:42] LABS: Alanine Aminotransferase 48 U/L (12-78); Albumin Level 3.5 g/dl (3.5-5.0); Albumin/Globulin Ratio 1.1 (1.1-1.8); Alkaline Phosphatase 84 U/L (38-126); Anion Gap 16.1 mEq/L (5-15); Aspartate Amino Transferase 74 U/L (17-59); Bilirubin,Total 0.2 mg/dl (0.2-1.3); Blood Urea Nitrogen 38 mg/dl (9-20); Carbon Dioxide 26 mmol/L (22.0-30.0); Creatinine Clearance Estimated 71 mL/min (50-200); Estimated Glomerular Filt Rate 50 ml/min (>60); GFR (African American) 60 ML/MIN (>60); Globulin 3.1 g/dL (1.3-3.2); Total Protein,Serum 6.6 g/dl (6.3-8.2)
[2021-06-28 09:43] LABS: Calcium 7.8 mg/dl (8.4-10.2); Glucose 146 mg/dl (74-100)
[2021-06-28 09:45] LABS: Lactic Acid 1.2 mmol/L (0.7-2.1)
[2021-06-28 10:02] LABS: Procalcitonin 0.203 ng/mL (0.0-2.0)
[2021-06-28 10:10] LABS: Microscopic, Urine URINE MICROSCOPIC (MICROSCOPIC)
[2021-06-28 10:12] LABS: Appearance,Urine SL CLOUDY (Clear); Bilirubin,Urine Negative (Negative); Blood, Urine 1+ (Negative); Color,Urine AMBER (Yellow); Glucose,Urine (UA) 3+ (Negative); Ketones,Urine Negative (Negative); Leukocyte Esterase,Urine Negative (Negative); Nitrate,Urine Negative (Negative); PH,Urine 5.5 (5.0-8.5); Protein,Urine 1+ (Negative); Specific Gravity, Urine >= 1.030 (1.005-1.030); Urobilinogen,Urine 0.2 EU/dl (0.2)
[2021-06-28 10:17] LABS: Coronavirus 19, PCR Detected (NotDetected)
[2021-06-28 10:24] LABS: Squamous Epithelial Cell,Urine Occasional #/hpf (0-5)
--- NOTE | 2021-06-28 11:32 | PC.NURSE ---
Dr Madi mehta
[2021-06-28 12:44] LABS: Troponin I 0.11 ng/ml (0.00-0.034)
--- NOTE | 2021-06-28 12:59 | PC.NURSE ---
REPORT CALLED TO ELIJAH RIVERA
--- NOTE | 2021-06-28 13:52 | PC.NURSE ---
PT ARRIVED TO SCU AT THIS TIME.
--- NOTE | 2021-06-28 14:42 | P.CONPHA_ITS ---
[facility] Pharmacy VTE Monitoring - Patient Demographics Admission date: 06/28/21 Report Date: 06/28/21 Time: 14:42 Allergies/Adverse Reactions: Patient Allergies Penicillins Allergy (Verified 06/13/21 09:03) Hives Height: 1.85 m Weight: 103.561 kg Patient Problems: Current Active Problems COVID-19 with pulmonary comorbidity (Acute) [place] (acute kidney injury) (Acute) A-fib (Acute) Hx of CABG (Chronic) Obesity (BMI 30.0-34.9) (Acute) Diabetes mellitus with diabetic neuropathy (Acute) - VTE Risk Labs: VTE Related Lab Results Hgb 14.9 g/dL (14.1-18.0) 06/28/21 09:18 Hct 47.2 % (42.0-52.0) 06/28/21 09:18 Plt Count 132 K/mm3 (142-424) L 06/28/21 09:18 BUN 38 mg/dl (9-20) H 06/28/21 09:18 Creatinine 1.40 mg/dl (0.66-1.25) H 06/28/21 09:18 Estimated Creat Clear 71 mL/min (50-200) 06/28/21 09:18 Was VTE Risk Assessment Performed: Yes VTE Risk Level: Moderate Risk Clinical Trial Participant: No - Prophylaxis VTE Prophylaxis Ordered?: Yes Types of VTE Prophylaxis: TEDS Knee High, Pharmacological Location of Applied Device: Bilateral Lower Extremeties Pharmacologic Type: Enoxaparin
--- NOTE | 2021-06-28 14:53 | PC.NURSE ---
PT STATES THAT HE CANNOT VERIFY HOME MEDS. UNABLE TO COMPLETE MED REC
--- NOTE | 2021-06-28 17:47 | PC.NURSE ---
NEW ADMIT THIS SHIFT, 3LNC FOR O2 SUPPORT. PT WAS UNABLE TO CONFIRM HOME MEDS BECAUSE HE DOES NOT KNOWN THEM. VITAL SIGNS HAVE REMAINED STABLE, BRADYCARDIC SINCE ARRIVAL TO FLOOR. DENIES PAIN, HAS MOSTLY SLEPT SINCE ARRIVING TO FLOOR. SWELLING NOTED TO RIGHT ELBOW THAT PT STATES HAS BEEN PRESENT FOR SOME TIME NO NEEDS AT THIS TIME.
[2021-06-28 18:08] LABS: Troponin I 0.08 ng/ml (0.00-0.034)
[2021-06-28 23:06] LABS: POC Glucose,Bedside 211 (70-110)
[2021-06-28 23:06] LABS: POC Glucose,Bedside 153 (70-110)
[2021-06-29] VITALS (8 sets, daily range): BP systolic 104–122; BP diastolic 58–73; PULSE 73–102; RESP 18–22; TEMP 36.6–38.3; O2SAT 91–95; BMI 30.2
--- NOTE | 2021-06-29 06:26 | PC.NURSE ---
patient has had uneventful night this shift; no acute distress noted, call light within reach, bed at lowest level; will continue to monitor.
[2021-06-29 07:02] LABS: Basophils % 0.6 % (0.1-2.0); Hematocrit 47.9 % (42.0-52.0); Lymphocytes # 1.1 K/mm3 (0.7-4.5); Lymphocytes % 18.5 % (10-50); Mean Corpuscular HGB Conc 31.4 g/dL (31.8-35.4); Mean Corpuscular Hemoglobin 28.4 pg (27.0-31.2); Mean Corpuscular Volume 90.5 fl (80-94); Mean Platelet Volume 8.7 fl (7.4-10.4); Monocytes # 0.5 K/mm3 (0.1-1.0); Monocytes % 9.3 % (1.7-9.3); Neutrophils # 4.1 K/mm3 (1.8-7.8); Neutrophils % 71.6 % (37.0-80.0); Platelet Count 136 K/mm3 (142-424); Red Cell Distribution Width 15.1 % (11.5-17.5); White Blood Count 5.7 K/mm3 (4.8-10.8)
[2021-06-29 07:36] LABS: Chloride 106 mmol/L (98-107)
[2021-06-29 07:37] LABS: Sodium 142 mmol/L (136-145)
[2021-06-29 07:40] LABS: Blood Urea Nitrogen 30 mg/dl (9-20); Calcium 7.6 mg/dl (8.4-10.2); Carbon Dioxide 27 mmol/L (22.0-30.0); Creatinine Clearance Estimated 95 mL/min (50-200); Estimated Glomerular Filt Rate 82 ml/min (>60); GFR (African American) 100 ML/MIN (>60); Glucose 111 mg/dl (74-100)
[2021-06-29 07:45] LABS: C-Reactive Protein 51.3 mg/L (0-4)
--- NOTE | 2021-06-29 08:17 | HMH.HP ---
*Admission Date: 06/28/21 *Chief complaint: Weakness *History of present illness: 75-year-old male presented to the emergency department with 3 days of weakness. Patient's had been ill at home for the last week with COVID-19. On of this week patient began feeling rundown and tired. He states he slept for nearly 24 4 hours the day prior to coming into the emergency department. He developed a cough. He is unaware of any fevers. He denies chills. Patient is also had some diarrhea. He has been vaccinated against COVID-19. When patient felt he was so weak he would not be able to manage at home he came to the emergency department. Work-up in the ER did show multifocal areas of pneumonia along with mild acute kidney injury. Patient was admitted for observation. Patient uses oxygen at home and O2 sat was stable in the mid 90s on his home flow rate of 3 L/min [facility] History I have reviewed the patient's past medical history: Yes Medical History: Reports:: Asthma, Atrial Fibrillation, Congestive Heart Failure, Chronic Obstructive Pulmonary Disease (COPD), Diabetes Mellitus Type 2, Gastroesophageal Reflux Disease(GERD), Home Oxygen, Hyperlipidemia, Hypertension, Myocardial Infarction Denies:: Cancer, Diabetes Mellitus Type 1, MRSA, Seizures *Have you ever received a pneumonia vaccine?: No *Have you received a flu vaccine this season?: Yes Other Medical History: Reports: Arthritis, Cataracts, Sinus Problems, Other Laterality Cases: Right: Arthroscopy Knee Other Surgeries: Yes: CABG, Cardiac Catheterization, Cardiac Surgery, Colonoscopy, Coronary Stent, Open Heart Surgery Amputation: No Fractures: No - *Social History Last grade of school completed: High school graduate Smoking Status: Current every day smoker Tobacco Type: cigarettes # Packs/Day (cigarettes): 1 #Yrs smoked (if former smoker): 62 Alcohol Intake: never Alcohol Intake Frequency:: other Substance Use Type: denies use *Occupational Status:: retired Housing: house Household Members: spouse *Travel in the last 8 weeks: None Family Hx:: Diabetes Review of Systems - Constitutional Reports body ache(s), Reports lack of energy, Denies anorexia, Denies chills - Eyes Denies change in vision - ENT Denies bleeding gums, Denies ear discharge, Denies mouth lesions - *Cardiovascular Denies chest pain at rest, Denies chest pain with activity, Denies shortness of breath with activity - *Respiratory Reports shortness of breath, Denies chest congestion, Denies cough - *Gastrointestinal Denies belching, Denies bloating, Denies heartburn - *Genitourinary Denies blood in urine - *Musculoskeletal Reports joint pain - Integumentary/Breasts Denies bleeding lesions - *Neurologic Denies localized weakness, Denies headache(s), Denies seizure-like activity Meds Home Medications Medication Instructions Recorded Confirmed Type atorvastatin 40 mg tablet 40 mg PO HS 90 Days #90 12/28/17 06/28/21 History finasteride 5 mg tablet 5 mg PO DAILY 90 Days #90 12/28/17 06/28/21 History losartan 50 mg tablet 50 mg PO DAILY 90 Days #90 12/28/17 06/28/21 History montelukast 10 mg tablet 10 mg PO DAILY 90 Days #90 12/28/17 06/28/21 History Empagliflozin [Jardiance] 25 mg PO DAILY 09/04/19 06/28/21 History Insulin Glargine,Hum.rec.anlog 86 unit SQ DAILY 09/04/19 06/28/21 History [Basaglar Kwikpen U-100] Sitagliptin Phos/Metformin HCl 1 tab PO BID 09/04/19 06/28/21 History [Janumet Xr 50-1,000 mg Tablet] Tamsulosin HCl 0.4 mg PO DAILY 09/04/19 06/28/21 History fluticasone fur. 100 mcg-umeclid 1 puff IH DAILY each 11/15/19 06/28/21 History 62.5 mcg-vilant 25 mcg inhalat.powder cetirizine 10 mg tablet 10 mg PO DAILY tab 05/08/20 06/28/21 History Aspirin [Adult Low Dose Aspirin EC] 81 mg PO DAILY 05/08/21 06/28/21 History Omeprazole [Omeprazole 40mg 40 mg PO DAILY 05/08/21 06/28/21 History Capsule] apixaban 5 mg tablet 5 mg PO BID tab 05/16/21 06/28/21 His
--- NOTE | 2021-06-29 13:35 | HMH.PHAINT ---
home medication list verified using list from Clinic pharmacy
--- NOTE | 2021-06-29 17:53 | PC.NURSE ---
Patient is alert and oriented x 4 Vitals stable Oxygen saturation is currently 92 on 3L nc. Patient has had a tmax of 100.9. Patient given tylenol. Temp recheck 98.1 GI patient blood glucose at 1630 was 230, required 4units. patient has had adequate output of roughly 800 throughout shift. Patient requested a new IV when his continued to alarm in his AC. 20g in left forearm. Will continue to monitor.
[2021-06-30] VITALS (8 sets, daily range): BP systolic 103–122; BP diastolic 62–84; PULSE 61–90; RESP 18–25; TEMP 36.6–37; O2SAT 89–93; BMI 29.6; BMI 29.5
--- NOTE | 2021-06-30 05:36 | PC.NURSE ---
patient had an uneventful night this shift. No s/s of acute distress noted, call light within reach, bed at lowest level for safety; will continue to monitor.
[2021-06-30 06:27] LABS: Basophils % 0.4 % (0.1-2.0); Eosinophils % 0.1 % (0.1-12.0); Hematocrit 44.8 % (42.0-52.0); Hemoglobin 13.9 g/dL (14.1-18.0); Lymphocytes # 0.4 K/mm3 (0.7-4.5); Lymphocytes % 9.5 % (10-50); Mean Corpuscular HGB Conc 31.1 g/dL (31.8-35.4); Mean Corpuscular Hemoglobin 28.2 pg (27.0-31.2); Mean Corpuscular Volume 90.7 fl (80-94); Mean Platelet Volume 9.2 fl (7.4-10.4); Monocytes # 0.2 K/mm3 (0.1-1.0); Monocytes % 5.3 % (1.7-9.3); Neutrophils # 3.9 K/mm3 (1.8-7.8); Neutrophils % 84.8 % (37.0-80.0); Platelet Count 111 K/mm3 (142-424); Red Blood Count 4.94 M/mm3 (4.60-6.20); Red Cell Distribution Width 15.2 % (11.5-17.5); White Blood Count 4.6 K/mm3 (4.8-10.8)
[2021-06-30 06:52] LABS: Chloride 103 mmol/L (98-107); Potassium 4.8 mmoL/L (3.5-5.1); Sodium 136 mmol/L (136-145)
[2021-06-30 06:55] LABS: Alanine Aminotransferase 46 U/L (12-78); Albumin Level 3.1 g/dl (3.5-5.0); Alkaline Phosphatase 79 U/L (38-126); Anion Gap 9.8 mEq/L (5-15); Aspartate Amino Transferase 86 U/L (17-59); Bilirubin,Total 0.2 mg/dl (0.2-1.3); Blood Urea Nitrogen 24 mg/dl (9-20); Calcium 7.5 mg/dl (8.4-10.2); Carbon Dioxide 28 mmol/L (22.0-30.0); Creatinine Clearance Estimated 93 mL/min (50-200); Estimated Glomerular Filt Rate 110 ml/min (>60); GFR (African American) 133 ML/MIN (>60); Globulin 3.1 g/dL (1.3-3.2); Glucose 131 mg/dl (74-100); Total Protein,Serum 6.2 g/dl (6.3-8.2)
--- NOTE | 2021-06-30 07:00 | HMH.ACPN2 ---
Internal Medicine - PN: Subj *Date: 06/30/21 *Time: 07:00 Interval history: Patient remained stable. He continues to report dyspnea both at rest and worse with exertion. He did complain of difficulty sleeping. Exam Vital signs and Labs for Last 24 Hours: Temp Pulse Resp BP Pulse Ox 98.6 F 63 22 116/84 90 L 06/30/21 00:00 06/30/21 00:00 06/30/21 00:00 06/30/21 00:00 06/30/21 00:00 Laboratory Results - last 24 hr 06/29/21 05:00: WBC 5.7, RBC 5.30, Hgb 15.0, Hct 47.9, MCV 90.5, MCH 28.4, MCHC 31.4 L, RDW 15.1, Plt Count 136 L, MPV 8.7, Neut % (Auto) 71.6, Lymph % (Auto) 18.5, [place] % (Auto) 9.3, Eos % (Auto) 0.0 L, Baso % (Auto) 0.6, Neut # (Auto) 4.1, Lymph # (Auto) 1.1, Island # (Auto) 0.5, Eos # (Auto) 0.0, Baso # (Auto) 0.0 06/29/21 05:00: Sodium 142, Potassium 5.0 D, Chloride 106, Carbon Dioxide 27, Anion Gap 14.0, BUN 30 H, Creatinine 0.90 D, Estimated Creat Clear 95, Estimated GFR 82, Est GFR ( Amer) 100 D, Glucose 111 H D, Calcium 7.6 L, Magnesium 2.0, C-Reactive Protein 51.3 H 06/30/21 04:30: Sodium 136, Potassium 4.8, Chloride 103, Carbon Dioxide 28, Anion Gap 9.8, BUN 24 H, Creatinine 0.70 D, Estimated Creat Clear 93, Estimated GFR 110, Est GFR ( Amer) 133 D, Glucose 131 H, Calcium 7.5 L, Total Bilirubin 0.2, AST 86 H, ALT 46, Alkaline Phosphatase 79, Total Protein 6.2 L, Albumin 3.1 L, Globulin 3.1, Albumin/Globulin Ratio 1.0 L 06/30/21 04:30: WBC 4.6 L, RBC 4.94, Hgb 13.9 L, Hct 44.8, MCV 90.7, MCH 28.2, MCHC 31.1 L, RDW 15.2, Plt Count 111 L, MPV 9.2, Neut % (Auto) 84.8 H, Lymph % (Auto) 9.5 L, Island % (Auto) 5.3, Eos % (Auto) 0.1, Baso % (Auto) 0.4, Neut # (Auto) 3.9, Lymph # (Auto) 0.4 L, [place] # (Auto) 0.2, Eos # (Auto) 0.0, Baso # (Auto) 0.0 I & O for Last 24 hours: Intake & Output 06/27/21 06/28/21 06/29/21 06/30/21 11:59 11:59 11:59 11:59 Intake Total 1200 / 1200 960 / 960 Output Total 1999 875 / 875 Balance -800 / -800 85 / 85 Weight 238 lb 228 lb 223 lb 7 oz Narrative: Patient appears comfortable lying in bed. Nasal cannula is in place. Lungs have expiratory wheezes heard best posteriorly and faint rhonchi anteriorly bilaterally. Heart has a regular rate and rhythm. Abdomen is soft and nontender. Assessment and Plan (1) Viral pneumonia Status: Acute Category: Medical Code(s): J12.9 - Viral pneumonia, unspecified (2) COVID-19 virus infection Status: Acute Category: Medical Code(s): U07.1 - COVID-19 (3) Rate controlled atrial fibrillation Status: Chronic Category: Medical Code(s): I48.91 - Unspecified atrial fibrillation (4) [place] (acute kidney injury) Status: Resolved Category: Medical Code(s): N17.9 - Acute kidney failure, unspecified (5) Diabetes mellitus with diabetic neuropathy Status: Chronic Qualifiers: Diabetes mellitus type: type 2 Diabetes mellitus detention insulin use: unspecified detention insulin use status Qualified Code(s): E11.40 - Type 2 diabetes mellitus with diabetic neuropathy, unspecified Category: Medical Code(s): E11.40 - Type 2 diabetes mellitus with diabetic neuropathy, unspecified (6) Obesity (BMI 30.0-34.9) Status: Chronic Category: Medical Code(s): E66.9 - Obesity, unspecified (7) Hx of CABG Status: Chronic Category: Surgical Code(s): Z95.1 - Presence of aortocoronary bypass graft (8) COPD (chronic obstructive pulmonary disease) Status: Chronic Qualifiers: COPD type: COPD with acute lower respiratory infection Qualified Code(s): J44.0 - Chronic obstructive pulmonary disease with (acute) lower respiratory infection Category: Medical Code(s): J44.9 - Chronic obstructive pulmonary disease, unspecified - Assessment and plan all Dx Assessment and Plan for all problems:: 1. Encouraged ambulation. Add incentive spirometry. Continue aerosols 2. Continue Remdesivir and steroids
--- NOTE | 2021-06-30 07:29 | SW/DCPLANNER ---
Addendum entered by Dayanna Vences 07/02/21 09:00: ORDERED PATIENT A ROLLING WALKER AND HE HAS REQUESTED TO HAVE IT DELIVERED TO HIS HOME, HE STATED HE DOES NOT WANT TO WAIT HERE AT THE HOSPITAL FOR A DELIVERY...I DID GET A CONFIRMATION THEY ARE ON THEIR WAY FOR A DELIVERY FROM [facility]. Original Note: PATIENT ADMITTED TO [facility] ON 06/28 WITH WEAKNESS, PATIENT STATED HE HAS NOT FELT WELL FOR THE PAST TWO OR 3 DAYS AND HAS HAD COVID... HE STATED HE HAD BEEN DOING OK UNTIL THIS HAPPENED.. I SPOKE WITH DR GOLD THIS MORNING AND HE STATED HE FELT MR FELIPE WILL BE ABLE TO RETURN BACK HOME IN A FEW DAYS IF HE CONTINUES TO DO OK.. IF NOT HE MAY REQUIRE A SKILLED REHAB FOR STRENGTHENING.. WILL FOLLOW PATIENT AND ASSIST IF THE NEED FOR REHAB IS NECESSARY..DISPOSITION IS UNCERTAIN AT THIS TIME...
[2021-06-30 16:19] LABS: POC Glucose,Bedside 135 (70-110)
[2021-06-30 16:19] LABS: POC Glucose,Bedside 161 (70-110)
[2021-06-30 16:19] LABS: POC Glucose,Bedside 259 (70-110)
[2021-06-30 16:19] LABS: POC Glucose,Bedside 129 (70-110)
[2021-06-30 16:37] LABS: POC Glucose,Bedside 212 (70-110)
--- NOTE | 2021-06-30 17:34 | PC.NURSE ---
PT IS RESTING IN BED. PT'S ONLY COMPLAINT IS THAT HE FEELS VERY TIRED AND IS NOT ABLE TO GET ANY SLEEP. PT HAS BEEN USING INCENTIVE SPIROMETER. PT DID NOT WANT TO SIT UP IN THE CHAIR THIS SHIFT BUT HAS AMBULATED TO THE BATHROOM WITH STAND BY ASSIST. O2 SATURATION HAS MAINTAINED 90-95% ON 3 L NC. EATING AND DRINKING FAIR. LUNG SOUNDS DIMINISHED WITH SCATTERED RHONCHI. ABDOMEN SOFT/NON TENDER WITH ACTIVE BOWEL SOUNDS. WILL CONTINUE TO MONITOR.
[2021-06-30 21:47] LABS: POC Glucose,Bedside 212 (70-110)
[2021-07-01] VITALS (7 sets, daily range): BP systolic 102–130; BP diastolic 58–78; PULSE 44–100; RESP 18–24; TEMP 36.4–37.3; O2SAT 90–94; BMI 29.2
[2021-07-01 06:10] LABS: Chloride 103 mmol/L (98-107); Sodium 139 mmol/L (136-145)
[2021-07-01 06:11] LABS: Potassium 4.7 mmoL/L (3.5-5.1)
[2021-07-01 06:13] LABS: Alanine Aminotransferase 43 U/L (12-78); Albumin Level 3.2 g/dl (3.5-5.0); Alkaline Phosphatase 77 U/L (38-126); Aspartate Amino Transferase 80 U/L (17-59); Bilirubin,Total 0.3 mg/dl (0.2-1.3); Blood Urea Nitrogen 22 mg/dl (9-20); Creatinine Clearance Estimated 93 mL/min (50-200); Estimated Glomerular Filt Rate 110 ml/min (>60); GFR (African American) 133 ML/MIN (>60); Globulin 3.2 g/dL (1.3-3.2); Total Protein,Serum 6.4 g/dl (6.3-8.2)
[2021-07-01 06:14] LABS: Anion Gap 10.7 mEq/L (5-15); Carbon Dioxide 30 mmol/L (22.0-30.0); Glucose 122 mg/dl (74-100)
[2021-07-01 06:24] LABS: Basophils % 0.5 % (0.1-2.0); Hematocrit 46.1 % (42.0-52.0); Hemoglobin 14.8 g/dL (14.1-18.0); Lymphocytes # 0.8 K/mm3 (0.7-4.5); Lymphocytes % 17.1 % (10-50); Mean Corpuscular HGB Conc 32.1 g/dL (31.8-35.4); Mean Corpuscular Hemoglobin 28.6 pg (27.0-31.2); Mean Corpuscular Volume 89.2 fl (80-94); Mean Platelet Volume 9.6 fl (7.4-10.4); Monocytes # 0.4 K/mm3 (0.1-1.0); Monocytes % 9.5 % (1.7-9.3); Neutrophils # 3.3 K/mm3 (1.8-7.8); Neutrophils % 72.9 % (37.0-80.0); Platelet Count 124 K/mm3 (142-424); Red Blood Count 5.18 M/mm3 (4.60-6.20); Red Cell Distribution Width 15.5 % (11.5-17.5); White Blood Count 4.5 K/mm3 (4.8-10.8)
--- NOTE | 2021-07-01 06:41 | PC.WOUNDNOTE ---
Patient had an uneventful night this shift. No s/s of acute distress noted, call light within reach, bed at lowest level for safety; will continue to monitor.
--- NOTE | 2021-07-01 07:03 | HMH.ACPN2 ---
Internal Medicine - PN: Subj *Date: 07/01/21 *Time: 07:04 Interval history: No acute events. Patient reports feeling better. He is still weak and gets dyspneic with ambulation but feels better rested and overall stronger compared to admission. Exam Vital signs and Labs for Last 24 Hours: Temp Pulse Resp BP Pulse Ox 98.0 F 63 18 114/69 92 L 07/01/21 04:00 07/01/21 04:00 07/01/21 04:00 07/01/21 04:00 07/01/21 04:00 Laboratory Results - last 24 hr 06/29/21 11:45: POC Glucose 161 H 06/30/21 00:02: POC Glucose 129 H 06/30/21 05:03: POC Glucose 135 H 06/30/21 12:15: POC Glucose 259 H 06/30/21 16:30: POC Glucose 212 H 06/30/21 21:41: POC Glucose 212 H 07/01/21 04:30: Sodium 139, Potassium 4.7, Chloride 103, Carbon Dioxide 30, Anion Gap 10.7, BUN 22 H, Creatinine 0.70, Estimated Creat Clear 93, Estimated GFR 110, Est GFR ( Amer) 133, Glucose 122 H, Calcium 8.0 L, Total Bilirubin 0.3, AST 80 H, ALT 43, Alkaline Phosphatase 77, Total Protein 6.4, Albumin 3.2 L, Globulin 3.2, Albumin/Globulin Ratio 1.0 L 07/01/21 04:30: WBC 4.5 L, RBC 5.18, Hgb 14.8, Hct 46.1, MCV 89.2, MCH 28.6, MCHC 32.1, RDW 15.5, Plt Count 124 L, MPV 9.6, Neut % (Auto) 72.9, Lymph % (Auto) 17.1, Howard % (Auto) 9.5 H, Eos % (Auto) 0.0 L, Baso % (Auto) 0.5, Neut # (Auto) 3.3, Lymph # (Auto) 0.8, Howard # (Auto) 0.4, Eos # (Auto) 0.0, Baso # (Auto) 0.0 I & O for Last 24 hours: Intake & Output 06/28/21 06/29/21 06/30/21 07/01/21 11:59 11:59 11:59 11:59 Intake Total 1200 / 1200 960 / 960 600 / 600 Output Total 1999 1150 / 1150 1175 / 1175 Balance -800 / -800 -190 / -190 -575 / -575 Weight 238 lb 228 lb 223 lb 7 oz 220 lb 5 oz Microbiology Reports for the Last 24 Hours: Microbiology 06/28/21 09:18 Blood Blood Culture - Preliminary NO GROWTH AFTER 48 HOURS 06/28/21 09:18 Blood Blood Culture - Preliminary NO GROWTH AFTER 48 HOURS Narrative: Patient is awake and alert. He is more energetic this morning than previous mornings. ENT exam is unremarkable. Lungs have expiratory wheezes throughout mixed with rhonchi. Heart has a regular rate and rhythm. Blood cultures show no growth after 48 hours Assessment and Plan (1) Viral pneumonia Status: Acute Category: Medical Code(s): J12.9 - Viral pneumonia, unspecified (2) COVID-19 virus infection Status: Acute Category: Medical Code(s): U07.1 - COVID-19 (3) Rate controlled atrial fibrillation Status: Chronic Category: Medical Code(s): I48.91 - Unspecified atrial fibrillation (4) [place] (acute kidney injury) Status: Resolved Category: Medical Code(s): N17.9 - Acute kidney failure, unspecified (5) Diabetes mellitus with diabetic neuropathy Status: Chronic Qualifiers: Diabetes mellitus type: type 2 Diabetes mellitus longterm insulin use: unspecified assistant terminal manager insulin use status Qualified Code(s): E11.40 - Type 2 diabetes mellitus with diabetic neuropathy, unspecified Category: Medical Code(s): E11.40 - Type 2 diabetes mellitus with diabetic neuropathy, unspecified (6) Obesity (BMI 30.0-34.9) Status: Chronic Category: Medical Code(s): E66.9 - Obesity, unspecified (7) Hx of CABG Status: Chronic Category: Surgical Code(s): Z95.1 - Presence of aortocoronary bypass graft (8) COPD (chronic obstructive pulmonary disease) Status: Chronic Qualifiers: COPD type: COPD with acute lower respiratory infection Qualified Code(s): J44.0 - Chronic obstructive pulmonary disease with (acute) lower respiratory infection Category: Medical Code(s): J44.9 - Chronic obstructive pulmonary disease, unspecified - Assessment and plan all Dx Assessment and Plan for all problems:: 1. Continue Remdesivir, IV steroids, aerosols for viral pneumonia due to COVID-19 and COPD exacerbation. 2. Encourage patient ambulate and continue to use incentive spirometry.
--- NOTE | 2021-07-01 13:53 | PC.NURSE ---
Patient needs a rolling walker rather than a cane, due to gait and mobility issues.
--- NOTE | 2021-07-01 15:52 | PC.NURSE ---
Pt has been pleasant and cooperative this shift. A&O X4. No complaints of pain or SOA. Pt is currently receiving O2 via NC @ 3 LPM with sats. >90%. Lungs CTA. No edema noted. Skin is C/D/I. Pt ambulates independently to/ from the bathroom and throughout the room with a walker. Pt also sat up in the chair for a couple hours. Pt voids clear, yellow urine without issue. No BM this shift. Appetite is good at pt eats the majority of all meals. 20 G peripheral IV in the LT AC is patent and SL. VSS. Call light within reach. Will continue to monitor.
[2021-07-02] VITALS: BP 109/68; PULSE 51; RESP 22; TEMP 36.6; O2SAT 92
[2021-07-02 03:55] VITALS: BP 113/62; PULSE 75; RESP 20; TEMP 36.6; O2SAT 93
--- NOTE | 2021-07-02 04:34 | PC.NURSE ---
Patient more alert tonight. He did not get out of bed during this shift and has slept with no PRN medication requested. No s/s of acute distress noted this shift, call light within reach, bed at lowest level for safety; will continue to monitor.
[2021-07-02 05:00] VITALS: BMI 29.1
--- NOTE | 2021-07-02 06:57 | HMH.ACPN2 ---
Internal Medicine - PN: Subj *Date: 07/02/21 *Time: 06:57 Interval history: No acute events. Patient reports feeling significantly better. He ambulated in his room multiple times yesterday without significant dyspnea. Cough is also improving. Exam Vital signs and Labs for Last 24 Hours: Temp Pulse Resp BP Pulse Ox 98 F 75 20 113/62 93 L 07/02/21 03:55 07/02/21 03:55 07/02/21 03:55 07/02/21 03:55 07/02/21 03:55 I & O for Last 24 hours: Intake & Output 06/29/21 06/30/21 07/01/21 07/02/21 11:59 11:59 11:59 11:59 Intake Total 1200 / 1200 960 / 960 840 / 840 1210 / 1210 Output Total 1999 / 1999 1150 / 1150 1725 / 1725 1650 / 1650 Balance -800 / -800 -190 / -190 -885 / -885 -440 / -440 Weight 228 lb 223 lb 7 oz 220 lb 5 oz 220 lb Narrative: Patient is awake and alert. He appears well. He shows no signs of respiratory distress. Heart has a regular rate and rhythm. Lungs have expiratory wheezes improved since yesterday. Abdomen is soft and nontender. Lower extremities have no edema. Assessment and Plan (1) Viral pneumonia Status: Acute Category: Medical Code(s): J12.9 - Viral pneumonia, unspecified (2) COVID-19 virus infection Status: Acute Category: Medical Code(s): U07.1 - COVID-19 (3) Rate controlled atrial fibrillation Status: Chronic Category: Medical Code(s): I48.91 - Unspecified atrial fibrillation (4) [place] (acute kidney injury) Status: Resolved Category: Medical Code(s): N17.9 - Acute kidney failure, unspecified (5) Diabetes mellitus with diabetic neuropathy Status: Chronic Qualifiers: Diabetes mellitus type: type 2 Diabetes mellitus retirement insulin use: unspecified retirement insulin use status Qualified Code(s): E11.40 - Type 2 diabetes mellitus with diabetic neuropathy, unspecified Category: Medical Code(s): E11.40 - Type 2 diabetes mellitus with diabetic neuropathy, unspecified (6) Obesity (BMI 30.0-34.9) Status: Chronic Category: Medical Code(s): E66.9 - Obesity, unspecified (7) Hx of CABG Status: Chronic Category: Surgical Code(s): Z95.1 - Presence of aortocoronary bypass graft (8) COPD (chronic obstructive pulmonary disease) Status: Chronic Qualifiers: COPD type: COPD with acute lower respiratory infection Qualified Code(s): J44.0 - Chronic obstructive pulmonary disease with (acute) lower respiratory infection Category: Medical Code(s): J44.9 - Chronic obstructive pulmonary disease, unspecified - Assessment and plan all Dx Assessment and Plan for all problems:: Patient will be discharged home today. He will continue oral steroids and aerosols 4 times daily at home in addition to home medications
--- NOTE | 2021-07-02 06:58 | HMH.DCSUM ---
General - General Admission date:: 06/28/21 Discharge date: 07/02/21 HPI HPI: 75-year-old male presented to the emergency department with 3 days of weakness. Patient's had been ill at home for the last week with COVID-19. On of this week patient began feeling rundown and tired. He states he slept for nearly 24 4 hours the day prior to coming into the emergency department. He developed a cough. He is unaware of any fevers. He denies chills. Patient is also had some diarrhea. He has been vaccinated against COVID-19. When patient felt he was so weak he would not be able to manage at home he came to the emergency department. Work-up in the ER did show multifocal areas of pneumonia along with mild acute kidney injury. Patient was admitted for observation. Patient uses oxygen at home and O2 sat was stable in the mid 90s on his home flow rate of 3 L/min Hospital Course Hospital Course: Patient was admitted for COVID-19 pneumonia and acute kidney injury. He was started on IV fluids and IV dexamethasone. Acute kidney injury resolved within 48 hours of admission and creatinine returned to baseline. Patient's lung exam had diffuse rhonchi as well as expiratory wheezes consistent with both pneumonia and exacerbation of COPD caused by viral infection. Patient was continued on IV dexamethasone and started on duo nebs 4 times daily. Patient uses oxygen at home and maintained O2 sats in the mid 90s on 3 L via nasal cannula. Patient was profoundly weak from his illness. On initial presentation he had difficulty getting out of bed and ambulating to the bathroom due to weakness and dyspnea. Symptoms gradually improved. On the day of July 02 patient had been able to ambulate independently. He reported improvement in dyspnea at rest and with exertion as well as cough. Patient was discharged home. He was advised to continue aerosols 4 times daily. Additional medications will be oral dexamethasone. Patient will resume all home medications. Patient will follow up in the office on July 08 Objective Vital signs: Temp Pulse Resp BP Pulse Ox 98 F 75 20 113/62 93 L 07/02/21 03:55 07/02/21 03:55 07/02/21 03:55 07/02/21 03:55 07/02/21 03:55 no acute distress - *Routine Respiratory Exam Present: wheezes (Improved). Absent: rhonchi - *Routine Cardiovascular Exam Present: RRR - *Routine Abdominal Exam Present: soft, normoactive bowel sounds. Absent: tenderness Results Labs on day of discharge: Preliminary micro results at discharge 06/28/21 09:18 Blood Culture - Preliminary Blood NO GROWTH AFTER 48 HOURS 06/28/21 09:18 Blood Culture - Preliminary Blood NO GROWTH AFTER 48 HOURS DS: Diagnosis - Discharge Diagnosis (1) Viral pneumonia Status: Acute (2) COVID-19 virus infection Status: Acute (3) Rate controlled atrial fibrillation Status: Chronic (4) [place] (acute kidney injury) Status: Resolved (5) Diabetes mellitus with diabetic neuropathy Status: Chronic (6) Obesity (BMI 30.0-34.9) Status: Chronic (7) Hx of CABG Status: Chronic (8) COPD (chronic obstructive pulmonary disease) Status: Chronic Discharge Plan - Patient Discharge Instructions ACTIVITY: Continue current activity DIET: continue same diet Additional Instructions: Use breathing treatments 4 times per day at home. DO NOT SMOKER CIGARETTES. Patient Instructions: DI for COVID-19 (Suspected or Confirmed ), Preventing the Spread of Coronavirus Discharge Instructions - Follow up Plan Follow up with: Amando Claire MD [Primary Care Provider] - 07/08/21 Disposition: Home, Self-Care Condition at discharge:: Improved Home Medications: Home Medications Medication Instructions Recorded Confirmed Type atorvastatin 40 mg tablet 40 mg PO HS 90 Days #90 12/28/17 06/28/21 History finasteride 5 mg tablet 5 mg PO DAILY 90 Days #90 12/28/17 06/28/21 Histor
[2021-07-02 07:02] LABS: Basophils % 0.4 % (0.1-2.0); Eosinophils % 0.1 % (0.1-12.0); Hematocrit 47.1 % (42.0-52.0); Hemoglobin 14.9 g/dL (14.1-18.0); Lymphocytes # 0.7 K/mm3 (0.7-4.5); Lymphocytes % 17.9 % (10-50); Mean Corpuscular HGB Conc 31.7 g/dL (31.8-35.4); Mean Corpuscular Hemoglobin 28.6 pg (27.0-31.2); Mean Corpuscular Volume 90.4 fl (80-94); Monocytes # 0.4 K/mm3 (0.1-1.0); Neutrophils # 2.8 K/mm3 (1.8-7.8); Neutrophils % 71.6 % (37.0-80.0); Platelet Count 123 K/mm3 (142-424); Red Blood Count 5.22 M/mm3 (4.60-6.20); Red Cell Distribution Width 15.3 % (11.5-17.5); White Blood Count 3.9 K/mm3 (4.8-10.8)
[2021-07-02 07:10] LABS: Alanine Aminotransferase 43 U/L (12-78); Albumin/Globulin Ratio 0.9 (1.1-1.8); Alkaline Phosphatase 72 U/L (38-126); Anion Gap 10.5 mEq/L (5-15); Aspartate Amino Transferase 67 U/L (17-59); Bilirubin,Total 0.5 mg/dl (0.2-1.3); Blood Urea Nitrogen 22 mg/dl (9-20); Calcium 8.1 mg/dl (8.4-10.2); Carbon Dioxide 33 mmol/L (22.0-30.0); Chloride 102 mmol/L (98-107); Creatinine Clearance Estimated 91 mL/min (50-200); Estimated Glomerular Filt Rate 110 ml/min (>60); GFR (African American) 133 ML/MIN (>60); Globulin 3.3 g/dL (1.3-3.2); Glucose 128 mg/dl (74-100); Potassium 4.5 mmoL/L (3.5-5.1); Sodium 141 mmol/L (136-145); Total Protein,Serum 6.3 g/dl (6.3-8.2)
--- NOTE | 2021-07-02 08:39 | PC.NURSE ---
PT WAS INFORMED THAT DR GOLD WISHES HIM TO D/C WITH A WALKER. PT STATES THAT HE WILL NOT WAIT IN HOSPITAL ROOM FOR WALKER AND THAT HE WANTS IT DELIVERED TO HIS HOME. PT STATES HE IS AWARE OF THE NEED FOR A WALKER AND AWARE OF THE RISKS BUT INSISTS IT BE SENT TO HIS HOME.
[2021-07-02 16:43] LABS: POC Glucose,Bedside 279 (70-110)
[2021-07-02 16:43] LABS: POC Glucose,Bedside 127 (70-110)
[2021-07-02 16:43] LABS: POC Glucose,Bedside 112 (70-110)
== END 2021-07-02 08:30 | disposition home or self-care (01) | DRG 177 ==
LOC: ER 09:46 → ICU 12:13
PROVIDERS: Admitting Provider Internal Medicine Adolescent Medicine; Emergency Provider Emergency Medicine; PCP Family Medicine; Visit Provider Family Medicine
DX: U07.1 COVID-19 (principal); J12.82 Pneumonia due to coronavirus disease 2019; N17.9 Acute kidney failure, unspecified; I48.11 Longstanding persistent atrial fibrillation; J44.0 Chronic obstructive pulmonary disease with (acute) lower respiratory infection; J44.1 Chronic obstructive pulmonary disease with (acute) exacerbation; E11.40 Type 2 diabetes mellitus with diabetic neuropathy, unspecified; Z99.81 Dependence on supplemental oxygen; I11.0 Hypertensive heart disease with heart failure; I50.9 Heart failure, unspecified; K21.9 Gastro-esophageal reflux disease without esophagitis; E78.5 Hyperlipidemia, unspecified; I25.2 Old myocardial infarction; M19.90 Unspecified osteoarthritis, unspecified site; Z95.1 Presence of aortocoronary bypass graft; Z95.5 Presence of coronary angioplasty implant and graft; F17.210 Nicotine dependence, cigarettes, uncomplicated; Z79.01 Long term (current) use of anticoagulants; E66.9 Obesity, unspecified; Z68.29 Body mass index [BMI] 29.0-29.9, adult; Z79.4 Long term (current) use of insulin
CPT/HCPCS: 71045; 71275; 80048; 80053; 81001; 82962; 83605; 83735; 84145; 84484; 85025; 86140; 87040; 93005; 93041; 94640; 94761; 96365; 96375; 99284; Q9967; U0003

== ENCOUNTER 2021-07-08 08:57 | Inpatient (IN) | payer MEDICARE, OTHER, SELFPAY ==
[2021-07-08] VITALS (17 sets, daily range): BP systolic 87–119; BP diastolic 47–89; PULSE 54–124; RESP 16–92; TEMP 36.3–36.6; O2SAT 89–94; BMI 31.4; BMI 27.7
--- NOTE | 2021-07-08 09:06 | HMH.EDWEAK ---
ED Disposition Clinical Impression: Pneumonia Qualifiers: Pneumonia type: due to unspecified organism Laterality: bilateral Lung location: unspecified part of lung Qualified Code(s): J18.9 - Pneumonia, unspecified organism Disposition: Admitted as Observation Condition on Discharge: Serious - Critical Care Critical Care Time: Yes Attestation: On , the high probability of a clinically significant, sudden or life threatening deterioration of the following system(s) required my full and direct attention, intervention and personal management. The time I documented below is in addition to time spent performing reported procedures but includes the following listed in this critical care notation. Total Critical Care Time: 50 Vital system(s) involved:: Circulatory Failure, Respiratory Failure My critical care processes included: Assessment & monitoring of V/S, Initial and Re-exams, Data Review/Interpretation, Coordinating Care Medical Decision Making - Medical Records Medical records reviewed: Yes: I reviewed the patient's medical records. - Edmund Inquiry Pt receiving controlled substance: No Vital Signs: 07/08/21 08:58 07/08/21 09:30 07/08/21 09:58 Temperature 97.3 F L Temperature Source Oral Pulse Rate 57 L Pulse Rate [Right] 124 H Respiratory Rate 21 16 Blood Pressure 96/58 L Blood Pressure [Right Arm] 99/63 L Blood Pressure Mean [Right Arm] 75 02 Sat by Pulse Oximetry 89 L 91 L 93 L Oxygen Delivery Method Nasal Cannula Nasal Cannula Nasal Cannula Oxygen Flow Rate (LPM) 2 5 6 07/08/21 10:00 07/08/21 10:32 07/08/21 11:00 Temperature Temperature Source Pulse Rate 71 66 69 Pulse Rate [Right] Respiratory Rate 16 20 18 Blood Pressure 103/63 L 106/58 L 95/66 L Blood Pressure [Right Arm] Blood Pressure Mean [Right Arm] 02 Sat by Pulse Oximetry 93 L 90 L 93 L Oxygen Delivery Method Nasal Cannula Nasal Cannula Nasal Cannula Oxygen Flow Rate (LPM) 5 5 5 07/08/21 12:00 07/08/21 12:30 07/08/21 13:00 Temperature Temperature Source Pulse Rate 84 94 H 85 Pulse Rate [Right] Respiratory Rate 18 16 92 H Blood Pressure 106/69 L 102/51 L 87/61 L Blood Pressure [Right Arm] Blood Pressure Mean [Right Arm] 02 Sat by Pulse Oximetry 90 L 94 L Oxygen Delivery Method Nasal Cannula Nasal Cannula Oxygen Flow Rate (LPM) 5 5 - Lab Data Lab results reviewed: Yes: I reviewed the patient's lab results. Lab Results 07/08/21 09:05: WBC 14.5 H, RBC 5.77, Hgb 16.4, Hct 51.7, MCV 89.6, MCH 28.3, MCHC 31.6 L, RDW 15.2, Plt Count 334, MPV 9.6, Neut % (Auto) 81.6 H, Lymph % (Auto) 13.5, [place] % (Auto) 4.1, Eos % (Auto) 0.2, Baso % (Auto) 0.7, Neut # (Auto) 11.9 H, Lymph # (Auto) 2.0, [place] # (Auto) 0.6, Eos # (Auto) 0.0, Baso # (Auto) 0.1 07/08/21 09:05: Sodium 140, Potassium 4.7, Chloride 103, Carbon Dioxide 27, Anion Gap 14.7, BUN 27 H, Creatinine 0.90, Estimated Creat Clear 99, Estimated GFR 82, Est GFR ( Amer) 100, Glucose 77, Calcium 9.0, Total Bilirubin 1.0, AST 57, ALT 54, Alkaline Phosphatase 130 H, Troponin I < 0.01, NT-Pro-B Natriuret Pep 2480 H, Total Protein 7.6, Albumin 3.4 L, Globulin 4.2 H, Albumin/Globulin Ratio 0.8 L 07/08/21 09:05: PT 12.2, INR 1.04, APTT 24.5 Result diagrams: 07/08/21 09:05 07/08/21 09:05 Orders (Tests/Meds): ED MEDICATIONS Generic Name Dose Route Start Last Admin Trade Name Abramq PRN Reason Stop Dose Admin Diltiazem HCl 100 mg/ Sodium 100 mls @ 10 mls/hr 07/08/21 09:17 07/08/21 09:54 Chloride IV 08/07/21 09:16 10 mls/hr .Q10H CHAYA Administration Protocol Cefepime HCl 2 gm/ Sodium 100 mls @ 200 mls/hr 07/08/21 14:30 07/08/21 14:33 Chloride IV 07/22/21 14:29 200 mls/hr Q8 CHAYA Administration Vancomycin HCl 1,000 mg/ 250 mls @ 125 mls/hr 07/08/21 14:30 Sodium Chloride IV 07/22/21 14:29 Q24H CHAYA Sodium Chloride 3 ml 07/08/21 14:27 Sodium Chloride 3% 15ml Neb IH 08/07/21 14:26 ONCE PRN I
--- NOTE | 2021-07-08 09:09 | ECG_ITS ---
APPROVED REPORT Exam: Resting ECG HR:126 bpm ECG Measurements Heart Rate 126 AXES QRSd 146 QRS 116 QT 326 T -5 QTc 472 Conclusion Atrial fibrillation with rapid ventricular response Right bundle branch block Abnormal ECG Electronically signed by : Amando Ojeda MD 07/11/2021 10:57:46
--- NOTE | 2021-07-08 09:15 | XR_ITS ---
PROCEDURE: XR CHEST PORTABLE CLINICAL HISTORY: Dyspnea, COVID+, CP COMPARISON: CR CXR2 CHEST-AP VIEW ONLY from 09/03/2014 CR XR CHEST 2V from 12/05/2019 CR XR CHEST PORTABLE from 05/08/2021 CR XR CHEST PORTABLE from 06/28/[address] ANGIO CHEST PE PROTOCOL from 06/28/2021 FINDINGS: Prior CABG. Every median sternotomy wire is fractured. This is a chronic finding. Normal heart size. Patchy areas of infiltrate are present in the lower lung zones on both sides and in the left midlung and is slightly worse. COPD changes. No evidence of pneumothorax No acute bony abnormalities. IMPRESSION: Patchy areas of infiltrate in the right lower lobe and left midlung and left lower lobe which are somewhat worse. Dictated by: Shamar Harrison MD 07/08/2021 09:55 Shamar Harrison MD in OV 07/08/2021 09:55
[2021-07-08 09:27] LABS: Basophils # 0.1 K/mm3 (0-0.2); Basophils % 0.7 % (0.1-2.0); Chloride 103 mmol/L (98-107); Eosinophils % 0.2 % (0.1-12.0); Hematocrit 51.7 % (42.0-52.0); Hemoglobin 16.4 g/dL (14.1-18.0); Lymphocytes % 13.5 % (10-50); Mean Corpuscular HGB Conc 31.6 g/dL (31.8-35.4); Mean Corpuscular Hemoglobin 28.3 pg (27.0-31.2); Mean Corpuscular Volume 89.6 fl (80-94); Mean Platelet Volume 9.6 fl (7.4-10.4); Monocytes # 0.6 K/mm3 (0.1-1.0); Monocytes % 4.1 % (1.7-9.3); Neutrophils # 11.9 K/mm3 (1.8-7.8); Neutrophils % 81.6 % (37.0-80.0); Platelet Count 334 K/mm3 (142-424); Red Blood Count 5.77 M/mm3 (4.60-6.20); Red Cell Distribution Width 15.2 % (11.5-17.5); White Blood Count 14.5 K/mm3 (4.8-10.8)
[2021-07-08 09:28] LABS: Potassium 4.7 mmoL/L (3.5-5.1); Sodium 140 mmol/L (136-145)
[2021-07-08 09:30] LABS: Alanine Aminotransferase 54 U/L (12-78); Alkaline Phosphatase 130 U/L (38-126); Aspartate Amino Transferase 57 U/L (17-59); Blood Urea Nitrogen 27 mg/dl (9-20); Creatinine Clearance Estimated 99 mL/min (50-200); Estimated Glomerular Filt Rate 82 ml/min (>60); GFR (African American) 100 ML/MIN (>60)
[2021-07-08 09:31] LABS: Albumin Level 3.4 g/dl (3.5-5.0); Albumin/Globulin Ratio 0.8 (1.1-1.8); Anion Gap 14.7 mEq/L (5-15); Carbon Dioxide 27 mmol/L (22.0-30.0); Globulin 4.2 g/dL (1.3-3.2); Glucose 77 mg/dl (74-100); Total Protein,Serum 7.6 g/dl (6.3-8.2)
[2021-07-08 09:38] LABS: Activated Partial Thrombo Time 24.5 seconds (22.8-30.6); Prothrombin Time 12.2 seconds (10.1-12.5)
[2021-07-08 09:40] LABS: INR 1.04 (0.9-1.1); NT Pro Brain Natriuretic Pep. 2480 pg/mL (0-125)
[2021-07-08 09:44] LABS: Troponin I < 0.01 ng/ml (0.00-0.034)
--- NOTE | 2021-07-08 10:22 | PC.NURSE ---
PT TOLD THIS RN THAT HE IS NOT FAMILIAR WITH HAVING A.FIB. CLINIC PHARMACY CONTACTED, PT HAS NOT BEEN ON DILTIAZEM PO FOR THE PAST 2 YEARS.
--- NOTE | 2021-07-08 10:30 | PC.NURSE ---
5MG BOLUS GIVEN & GTT UP TO 10MG/HR PER ORDERS.
--- NOTE | 2021-07-08 10:47 | PC.NURSE ---
DILT GTT TITRATED TO HR <[address] PENALOZA. HR 90-106. 5MG BOLUS GIVEN & GTT UP TO 15MG/HR PER ORDERS.
--- NOTE | 2021-07-08 11:34 | PC.NURSE ---
CONTACTED PHARMACY, PHARMACY TO TUBE DOWN PO DILTIAZEM.
--- NOTE | 2021-07-08 11:45 | PC.NURSE ---
PO DILTIAZEM GIVEN, PT WILL REMAIN ON GTT FOR [address] PENALOZA .
--- NOTE | 2021-07-08 12:50 | PC.NURSE ---
DILTIAZEM GTT STOPPED @ 1250, DR PENALOZA NOTIFIED.
--- NOTE | 2021-07-08 14:21 | PC.NURSE ---
VEENA SAUCEDA speaking with Dr. Claire
--- NOTE | 2021-07-08 14:24 | PC.NURSE ---
notified care management of admission, spoke with carmelita
[2021-07-08 14:42] LABS: Influenza A, PCR Not Detected (NotDetected); Influenza B, PCR Not Detected (NotDetected)
--- NOTE | 2021-07-08 14:59 | PC.NURSE ---
PT DOES NOT KNOW HIS HOME MEDICATIONS. 2 ATTEMPTS TO CALL CLINIC PHARMACY FOR MED LIST, NO ANSWER.
--- NOTE | 2021-07-08 15:00 | HMH.PHACONS ---
- Pharmacy Consult Date: 07/08/21 Time: 15:00 Referring provider: DR. PENALOZA Reason for Consult:: VANCOMYCIN DOSING Allergies and ADEs:: Allergies Allergy/AdvReac Type Severity Reaction Status Date / Time Penicillins Allergy Hives Verified 06/13/21 09:03 Home Medications:: Home Medications Medication Instructions Recorded Confirmed Type atorvastatin 40 mg tablet 40 mg PO HS 90 Days #90 12/28/17 06/28/21 History finasteride 5 mg tablet 5 mg PO DAILY 90 Days #90 12/28/17 06/28/21 History losartan 50 mg tablet 50 mg PO DAILY 90 Days #90 12/28/17 06/28/21 History montelukast 10 mg tablet 10 mg PO DAILY 90 Days #90 12/28/17 06/28/21 History Empagliflozin [Jardiance] 25 mg PO DAILY 09/04/19 06/28/21 History Insulin Glargine,Hum.rec.anlog 86 unit SQ DAILY 09/04/19 06/28/21 History [Gretel Mcguire U-100] Sitagliptin Phos/Metformin HCl 1 tab PO BID 09/04/19 06/28/21 History [Janumet Xr 50-1,000 mg Tablet] Tamsulosin HCl 0.4 mg PO DAILY 09/04/19 06/28/21 History fluticasone fur. 100 mcg-umeclid 1 puff IH DAILY each 11/15/19 06/28/21 History 62.5 mcg-vilant 25 mcg inhalat.powder cetirizine 10 mg tablet 10 mg PO DAILY tab 05/08/20 06/28/21 History Aspirin [Adult Low Dose Aspirin EC] 81 mg PO DAILY 05/08/21 06/28/21 History Omeprazole [Omeprazole 40mg 40 mg PO DAILY 05/08/21 06/28/21 History Capsule] apixaban 5 mg tablet 5 mg PO BID tab 05/16/21 06/28/21 History Metoprolol Tartrate [Lopressor 50 mg PO BID 06/06/21 06/28/21 History 25mg tablet] Nicotine [Nicotine Patch See Rx Instructions TRANSDERMA 06/06/21 06/28/21 History 14mg/24Hrs] .COMPLEX buPROPion HCL [Bupropion HCl Sr] 150 mg PO BID 06/06/21 06/29/21 History dexAMETHasone [Dexamethasone] 6 mg PO DAILY #7 tab 07/02/21 Rx Height: 1.85 m Weight: 107.955 kg Laboratory Results:: Laboratory Results - last 24 hr 07/08/21 09:05: WBC 14.5 H, RBC 5.77, Hgb 16.4, Hct 51.7, MCV 89.6, MCH 28.3, MCHC 31.6 L, RDW 15.2, Plt Count 334, MPV 9.6, Neut % (Auto) 81.6 H, Lymph % (Auto) 13.5, [place] % (Auto) 4.1, Eos % (Auto) 0.2, Baso % (Auto) 0.7, Neut # (Auto) 11.9 H, Lymph # (Auto) 2.0, [place] # (Auto) 0.6, Eos # (Auto) 0.0, Baso # (Auto) 0.1 07/08/21 09:05: Sodium 140, Potassium 4.7, Chloride 103, Carbon Dioxide 27, Anion Gap 14.7, BUN 27 H, Creatinine 0.90, Estimated Creat Clear 99, Estimated GFR 82, Est GFR ( Amer) 100, Glucose 77, Calcium 9.0, Total Bilirubin 1.0, AST 57, ALT 54, Alkaline Phosphatase 130 H, Troponin I < 0.01, NT-Pro-B Natriuret Pep 2480 H, Total Protein 7.6, Albumin 3.4 L, Globulin 4.2 H, Albumin/Globulin Ratio 0.8 L 07/08/21 09:05: PT 12.2, INR 1.04, APTT 24.5 Medical History: Reports:: Asthma, Atrial Fibrillation, Congestive Heart Failure, Chronic Obstructive Pulmonary Disease (COPD), Diabetes Mellitus Type 2, Gastroesophageal Reflux Disease(GERD), Home Oxygen, Hyperlipidemia, Hypertension, Myocardial Infarction Denies:: Cancer, Diabetes Mellitus Type 1, MRSA, Seizures Assessment and Plan - Assessment and plan all Dx Assessment and Plan for all problems:: Age: 75 yo Serum creatinine: 1 mg/dL Height: 73.0 Inches Weight (kg): 108 Assessment: IBW (kg): 79.90 Dosing wt(kg): 108 Estimated Creatinine clearance (ml/min): 73.2 CRCL method: Cockcroft and Gault using ibw(default). Drug selected: Vancomycin Loading dose (mg): 0 Vd (liters): 86.4 (factor used: 0.8 L/kg) Pascual (hr-1): 0.065 Half life (hrs): 10.66 Recommended dose: 1500 mg Interval: 12 hrs Infusion time (hrs): 2.0 Predicted peak (mcg/mL): 30.1 Predicted trough (mcg/mL): 15.71 Total body weight is being used for vancomycin dosing. Recommendations: Give Vancomycin 1500 mg q 12 hrs with an expected Cpeak of 30.1 mcg/ml and an expected Ctrough of 15.71 mcg/ml ----Vanco only - ignore for aminoglycosides----- CLvanco= 5.62 L/hr AUC
--- NOTE | 2021-07-08 15:00 | PC.NURSE ---
PT GIVEN SPECIMEN CUP FOR SPUTUM SAMPLE.
[2021-07-08 15:29] LABS: Coronavirus 19, PCR Detected (NotDetected)
--- NOTE | 2021-07-08 16:48 | PC.NURSE ---
second floor ward aide called with room assignment for pt at this time, called registration staff with admission information, spoke with drea
--- NOTE | 2021-07-08 18:20 | PC.NURSE ---
REPORT GIVEN TO
--- NOTE | 2021-07-08 18:36 | INFXCTL.NOTE ---
pt arrived to the floor at this time
[2021-07-09] VITALS (9 sets, daily range): BP systolic 99–124; BP diastolic 48–77; PULSE 53–110; RESP 16–22; TEMP 35.8–36.9; O2SAT 90–99; BMI 17.4; BMI 17.5; BMI 27.9
--- NOTE | 2021-07-09 03:19 | PC.NURSE ---
A&OX4. PT HAS TOLERATED 5LNC THIS SHIFT, O2 SAT IN LOW 90S. PT IS UP INDEPENDENTLY IN ROOM. PT HAS HAD NO C/O THUS FAR. RESTING MAJORITY OF SHIFT. VSS WILL CONTINUE TO MONITOR.
--- NOTE | 2021-07-09 07:31 | HMH.HP ---
*Admission Date: 07/08/21 *Chief complaint: Weakness *History of present illness: 75-year-old male presented to the emergency department yesterday morning with profound weakness and inability to care for himself at home. Patient had had a hospitalization at this facility for COVID-19 pneumonia and had been discharged on July 02. On the day of discharge patient had felt well and had had improvement in his breathing as well as his activity level in the hospital room. Patient reports within 24 hours of returning home he noted weakness and difficulty getting out of bed. His symptoms of weakness and malaise progressed to the day until he came to the emergency department. Work-up in the ER revealed an elevated white blood cell count along with signs of worsening pneumonia on x-ray. Upon arrival to the emergency department patient was also found to be in A. fib with rapid ventricular response. Patient was given intravenous Cardizem and A. fib became rate controlled. He was given a loading dose of oral Cardizem as well and continued on his home metoprolol on admission. This morning the patient reports feeling slightly better although remains very weak. He tells me he was unaware of his A. fib with rapid ventricular response. He continues to have a cough that remains nonproductive. He denies any fevers at home. He denies chest pain. [facility] History I have reviewed the patient's past medical history: Yes Medical History: Reports:: Asthma, Atrial Fibrillation, Congestive Heart Failure, Chronic Obstructive Pulmonary Disease (COPD), Diabetes Mellitus Type 2, Gastroesophageal Reflux Disease(GERD), Home Oxygen, Hyperlipidemia, Hypertension, Myocardial Infarction Denies:: Cancer, Diabetes Mellitus Type 1, MRSA, Seizures *Have you ever received a pneumonia vaccine?: No *Have you received a flu vaccine this season?: No Other Medical History: Reports: Arthritis, Cataracts, Sinus Problems, Other Laterality Cases: Right: Arthroscopy Knee Other Surgeries: Yes: CABG, Cardiac Catheterization, Cardiac Surgery, Colonoscopy, Coronary Stent, Open Heart Surgery Amputation: No Fractures: No - *Social History Smoking Status: Former smoker Tobacco Type: cigarettes # Packs/Day (cigarettes): 1 #Yrs smoked (if former smoker): 62 Alcohol Intake: never Alcohol Intake Frequency:: other Substance Use Type: denies use *Occupational Status:: retired Housing: house Household Members: spouse *Travel in the last 8 weeks: None Family Hx:: Unable to obtain Review of Systems - Review of Systems Review of systems:: pertinent systems reviewed and negative unless documented below - *Neurologic Reports weakness (generalized), Denies localized weakness Meds Home Medications Medication Instructions Recorded Confirmed Type atorvastatin 40 mg tablet 40 mg PO HS 90 Days #90 12/28/17 07/08/21 History finasteride 5 mg tablet 5 mg PO DAILY 90 Days #90 12/28/17 07/08/21 History losartan 50 mg tablet 50 mg PO DAILY 90 Days #90 12/28/17 07/08/21 History montelukast 10 mg tablet 10 mg PO DAILY 90 Days #90 12/28/17 07/08/21 History Empagliflozin [Jardiance] 25 mg PO DAILY 09/04/19 07/08/21 History Sitagliptin Phos/Metformin HCl 1 tab PO BID 09/04/19 07/08/21 History [Janumet Xr 50-1,000 mg Tablet] Tamsulosin HCl 0.4 mg PO DAILY 09/04/19 07/08/21 History fluticasone fur. 100 mcg-umeclid 1 puff IH DAILY each 11/15/19 07/08/21 History 62.5 mcg-vilant 25 mcg inhalat.powder cetirizine 10 mg tablet 10 mg PO DAILY tab 05/08/20 07/08/21 History Aspirin [Adult Low Dose Aspirin EC] 81 mg PO DAILY 05/08/21 06/28/21 History Omeprazole [Omeprazole 40mg 40 mg PO DAILY 05/08/21 07/08/21 History Capsule] apixaban 5 mg tablet 5 mg PO BID tab 05/16/21 07/08/21 History Metoprolol Tartrate [Lopressor 50 mg PO BID 06/06/21 07/08/21 History 25mg tablet] Nicotine [Nicotine Patch See Rx Instructions TRANSDERMA 06/06/21 06/28/21 History 14mg/24Hrs] .COMPLEX buPROPion HCL
--- NOTE | 2021-07-09 07:32 | HMH.PHAVTE ---
[facility] Pharmacy VTE Monitoring - Patient Demographics Admission date: 07/08/21 Report Date: 07/09/21 Time: 07:32 Allergies/Adverse Reactions: Patient Allergies Penicillins Allergy (Verified 07/08/21 16:43) Hives Height: 1.85 m Weight: 59.7 kg Patient Problems: Current Active Problems Pneumonia (Acute) - VTE Risk Labs: VTE Related Lab Results Hgb 16.4 g/dL (14.1-18.0) 07/08/21 09:05 Hct 51.7 % (42.0-52.0) 07/08/21 09:05 Plt Count 334 K/mm3 (142-424) 07/08/21 09:05 PT 12.2 seconds (10.1-12.5) 07/08/21 09:05 INR 1.04 (0.9-1.1) 07/08/21 09:05 APTT 24.5 seconds (22.8-30.6) 07/08/21 09:05 BUN 27 mg/dl (9-20) H 07/08/21 09:05 Creatinine 0.90 mg/dl (0.66-1.25) 07/08/21 09:05 Estimated Creat Clear 99 mL/min (50-200) 07/08/21 09:05 - Prophylaxis VTE Prophylaxis Ordered?: Yes Types of VTE Prophylaxis: TEDS Knee High, Pharmacological Location of Applied Device: Bilateral Lower Extremeties Pharmacologic Type: Other (ELIQUIS)
--- NOTE | 2021-07-09 07:33 | HMH.PHAINT ---
MEDICATION RECONCILIATION COMPLETED USING RECENT DISCHARGE PACKET AND PHARMACY FILL HISTORY.
[2021-07-09 08:21] LABS: Basophils # 0.1 K/mm3 (0-0.2); Basophils % 0.4 % (0.1-2.0); Eosinophils % 0.3 % (0.1-12.0); Hematocrit 47.6 % (42.0-52.0); Lymphocytes # 1.3 K/mm3 (0.7-4.5); Lymphocytes % 9.6 % (10-50); Mean Corpuscular HGB Conc 30.9 g/dL (31.8-35.4); Mean Corpuscular Volume 90.8 fl (80-94); Monocytes # 0.7 K/mm3 (0.1-1.0); Monocytes % 5.2 % (1.7-9.3); Neutrophils # 11.8 K/mm3 (1.8-7.8); Neutrophils % 84.6 % (37.0-80.0); Platelet Count 288 K/mm3 (142-424); Red Blood Count 5.24 M/mm3 (4.60-6.20); Red Cell Distribution Width 15.2 % (11.5-17.5); White Blood Count 13.9 K/mm3 (4.8-10.8)
[2021-07-09 08:35] LABS: Anion Gap 11.5 mEq/L (5-15); Blood Urea Nitrogen 28 mg/dl (9-20); Calcium 8.2 mg/dl (8.4-10.2); Carbon Dioxide 27 mmol/L (22.0-30.0); Chloride 104 mmol/L (98-107); Creatinine Clearance Estimated 55 mL/min (50-200); Estimated Glomerular Filt Rate 94 ml/min (>60); GFR (African American) 114 ML/MIN (>60); Glucose 211 mg/dl (74-100); Potassium 4.5 mmoL/L (3.5-5.1); Sodium 138 mmol/L (136-145)
[2021-07-09 09:06] LABS: Hemoglobin 14.8 g/dL (14.1-18.0)
--- NOTE | 2021-07-09 10:57 | HMH.PTEV ---
Physical Therapy Evaluation Rehab PT IP Evaluation Start: 07/09/21 07:38 Freq: ONCE Status: Complete Protocol: Document 07/09/21 10:48 JAMES (Rec: 07/09/21 10:51 JAMES [id number]) Subjective/History History History 75 yowm adm to [facility] with new onset PNA after prior bout of COVID-19 with hospitalization. He reports he lives at home and is independent woth all mobility using his rolator. Subjective Subjective Pt with no c/o this am. Rehab PT IP Eval Objective Appearance Patient Behavior Appropriate,Cooperative, Aggressive Patient Orientation Person,Place,Time Difficulty following instructions none Speech Pattern Clear Ambulation Patient Able to Ambulate Yes Ambulation Observation IP General Gait Pattern Observation Wide Based Gait,Shuffling Step Ambulation Distance (feet) 30 Ambulation Assistive Device Rolling Walker Ambulation Ability Supervision/Stand by Balance Ability to Arise Able, uses arms to help Sitting Balance Steady, safe Standing Balance Steady, wide stance Dynamic Sitting Balance Ability Normal Dynamic Standing Balance Ability Good Transfers Bed Transfer Ability Supervision/Stand by Chair Transfer Ability Supervision/Stand by Sit to Stand Bed Transfer Ability Supervision/Stand by Sit to Stand Chair Transfer Ability Supervision/Stand by ROM All Extremities PT ROM Status WFL MMT All Extremities PT MMT WFL Rehab PT IP prob,goals,plan Problems Date of Evaluation: 07/09/21 Discharge Plan PT Discharge Plan Pt appears to be at baseline for all mobility at this time, no current inpatient therapy needs. G -code Required No Eval Complexity Eval Charge Codes 61256 - Moderate Complexity PHYSICIAN CERTIFICATION: I certify the specified therapy services for Vamsi Mallory are required, authorized, and reviewed every 30 days.
--- NOTE | 2021-07-09 16:48 | PC.NURSE ---
Pt has done well this shift. Pt has been successfully weaned down to 4L NC. o2 sats between 90-92%. Pt has ambulated independently w/ standard walker this shift. Urine is clear and dark kailey, pt uses urinal. Active bowel sounds in all 4 quads, no BM reported this shift. Will continue to monitor.
[2021-07-09 17:18] LABS: POC Glucose,Bedside 297 (70-110)
--- NOTE | 2021-07-09 20:07 | PC.NURSE ---
PT UNABLE TO PRODUCE SPUTUM AT THIS TIME. LEFT CUP AT BEDSIDE.
[2021-07-09 21:21] LABS: POC Glucose,Bedside 288 (70-110)
[2021-07-09 22:30] LABS: POC Glucose,Bedside 309 (70-110)
[2021-07-10] VITALS (10 sets, daily range): BP systolic 103–125; BP diastolic 64–78; PULSE 56–98; RESP 16–20; TEMP 35.9–36.6; O2SAT 90–94; BMI 28.0
--- NOTE | 2021-07-10 05:17 | PC.NURSE ---
pt AxOx4, has rested intermittently t/o shift, remains on 3L NC with no complaints of SOA, O2 sats 91-92%, lung sounds diminished with inspiratory wheezing noted in bilateral upper lobes, using urinal independently with good urine output
[2021-07-10 05:20] LABS: POC Glucose,Bedside 211 (70-110)
--- NOTE | 2021-07-10 06:56 | HMH.ACPN2 ---
Internal Medicine - PN: Subj *Date: 07/10/21 *Time: 06:56 Interval history: Patient reports feeling better. He still has some dyspnea on exertion. No acute events yesterday. He was evaluated by physical therapy who is judged he is near baseline mobility. Patient did admit to being untruthful about how well he was feeling last week on the day of his discharge Exam Vital signs and Labs for Last 24 Hours: Temp Pulse Resp BP Pulse Ox 97.7 F 75 20 117/74 90 L 07/10/21 04:00 07/10/21 06:47 07/10/21 04:00 07/10/21 04:00 07/10/21 06:47 Laboratory Results - last 24 hr 07/09/21 08:00: WBC 13.9 H, RBC 5.24, Hgb 14.8, Hct 47.6, MCV 90.8, MCH 28.0, MCHC 30.9 L, RDW 15.2, Plt Count 288, MPV 9.0, Neut % (Auto) 84.6 H, Lymph % (Auto) 9.6 L, [place] % (Auto) 5.2, Eos % (Auto) 0.3, Baso % (Auto) 0.4, Neut # (Auto) 11.8 H, Lymph # (Auto) 1.3, [place] # (Auto) 0.7, Eos # (Auto) 0.0, Baso # (Auto) 0.1 07/09/21 08:00: Sodium 138, Potassium 4.5, Chloride 104, Carbon Dioxide 27, Anion Gap 11.5, BUN 28 H, Creatinine 0.80, Estimated Creat Clear 55, Estimated GFR 94, Est GFR ( Amer) 114, Glucose 211 H D, Calcium 8.2 L 07/09/21 08:00: C-Reactive Protein 26.0 H 07/09/21 17:11: POC Glucose 297 H 07/09/21 21:01: POC Glucose 288 H 07/09/21 22:21: POC Glucose 309 H* 07/10/21 05:10: POC Glucose 211 H I & O for Last 24 hours: Intake & Output 07/07/21 07/08/21 07/09/21 07/10/21 11:59 11:59 11:59 11:59 Intake Total 600 / 600 1570 / 1570 Output Total 2500 / 2500 2550 / 2550 Balance -1900 / -1900 -980 / -980 Weight 238 lb 132 lb 4.438 oz 211 lb 8 oz Microbiology Reports for the Last 24 Hours: Microbiology 07/08/21 14:27 Sputum - Expectorated Sputum Gram Stain - Final Narrative: Patient looks comfortable and shows no increased work of breathing. Has rhonchi in the right base. Heart has a regular rate and rhythm. Abdomen is soft Assessment and Plan (1) Pneumonia Status: Acute Qualifiers: Pneumonia type: due to unspecified organism Laterality: bilateral Lung location: unspecified part of lung Qualified Code(s): J18.9 - Pneumonia, unspecified organism Category: Medical Code(s): J18.9 - Pneumonia, unspecified organism (2) Acute respiratory failure with hypoxia Status: Resolved Category: Medical Code(s): J96.01 - Acute respiratory failure with hypoxia (3) Atrial fibrillation with rapid ventricular response Status: Acute Category: Medical Code(s): I48.91 - Unspecified atrial fibrillation (4) COVID-19 virus infection Status: Acute Category: Medical Code(s): U07.1 - COVID-19 (5) Diabetes mellitus with diabetic neuropathy Status: Chronic Qualifiers: Diabetes mellitus type: type 2 Diabetes mellitus fpc insulin use: unspecified fpc insulin use status Qualified Code(s): E11.40 - Type 2 diabetes mellitus with diabetic neuropathy, unspecified Category: Medical Code(s): E11.40 - Type 2 diabetes mellitus with diabetic neuropathy, unspecified (6) Hx of CABG Status: Chronic Category: Surgical Code(s): Z95.1 - Presence of aortocoronary bypass graft (7) Obesity (BMI 30.0-34.9) Status: Chronic Category: Medical Code(s): E66.9 - Obesity, unspecified - Assessment and plan all Dx Assessment and Plan for all problems:: 1. Add incentive spirometry 2. Continue steroids, aerosols, antibiotics for pneumonia 3. Encourage patient to ambulate. Goal is to wean patient back to his baseline O2 use of 3 L/min
[2021-07-10 07:06] LABS: Basophils % 0.2 % (0.1-2.0); Hematocrit 43.6 % (42.0-52.0); Hemoglobin 13.8 g/dL (14.1-18.0); Lymphocytes # 0.8 K/mm3 (0.7-4.5); Lymphocytes % 7.5 % (10-50); Mean Corpuscular HGB Conc 31.7 g/dL (31.8-35.4); Mean Corpuscular Hemoglobin 28.2 pg (27.0-31.2); Mean Corpuscular Volume 89.1 fl (80-94); Mean Platelet Volume 9.1 fl (7.4-10.4); Monocytes # 0.7 K/mm3 (0.1-1.0); Monocytes % 6.5 % (1.7-9.3); Neutrophils # 8.7 K/mm3 (1.8-7.8); Neutrophils % 85.8 % (37.0-80.0); Platelet Count 255 K/mm3 (142-424); Red Cell Distribution Width 15.4 % (11.5-17.5); White Blood Count 10.2 K/mm3 (4.8-10.8)
[2021-07-10 07:07] LABS: MANUAL DIFFERENTIAL MANUAL DIFFERENTIAL (MANUAL DIFF)
[2021-07-10 07:18] LABS: Anion Gap 11.7 mEq/L (5-15); Blood Urea Nitrogen 26 mg/dl (9-20); Calcium 8.4 mg/dl (8.4-10.2); Carbon Dioxide 25 mmol/L (22.0-30.0); Chloride 104 mmol/L (98-107); Creatinine Clearance Estimated 88 mL/min (50-200); Estimated Glomerular Filt Rate 94 ml/min (>60); GFR (African American) 114 ML/MIN (>60); Glucose 194 mg/dl (74-100); Potassium 4.7 mmoL/L (3.5-5.1); Sodium 136 mmol/L (136-145)
[2021-07-10 07:20] LABS: Hypochromasia 1+; Lymphocytes % 6 % (10-50); Monocytes % 4 % (2-9); Neutrophils % 90 % (42-76); Platelet Estimate Normal; Total Cells Counted 100
[2021-07-10 07:27] LABS: C-Reactive Protein 17.9 mg/L (0-4)
[2021-07-10 11:55] LABS: POC Glucose,Bedside 203 (70-110)
[2021-07-10 15:38] LABS: Vancomycin,Trough 10.9 ug/mL (5.0-10.0)
[2021-07-10 16:08] LABS: POC Glucose,Bedside 295 (70-110)
--- NOTE | 2021-07-10 16:09 | PC.NURSE ---
Pt has been pleasant and cooperative this shift. A&O X4. No complaints of pain or SOA. Pt is currently receiving O2 via NC @ 3 LPM with sats. >90%. Lung sounds reveal scattered rhonchi. No edema noted. Skin is C/D/I. Pt uses the urinal to void clear, dark-yellow urine without issue. No BM thus far this shift. Pt ambulates with stand-by assistance to/from the bathroom and throughout the room. Pt refused to sit up in the recliner today. FSBS results have been 203 and 295. 20 G peripheral IV in the LT AC is patent and SL. VSS. Call light within reach. Will continue to monitor.
[2021-07-10 20:10] LABS: POC Glucose,Bedside 552 (70-110)
[2021-07-10 20:36] LABS: Vancomycin,Peak 24.9 ug/ml (11-39)
--- NOTE | 2021-07-11 03:01 | PC.NURSE ---
Pt is A/O x4. No acute changes t/o night. Pt remains on 3L NC with O2 stats >90%. Pt denies any pain. Pt uses urinal independently. VSS, call light within reach, will continue to monitor.
[2021-07-11 03:44] VITALS: BP 115/54; PULSE 96; RESP 20; TEMP 36.6; O2SAT 93
[2021-07-11 05:34] LABS: POC Glucose,Bedside 254 (70-110)
[2021-07-11 07:07] LABS: Basophils % 0.1 % (0.1-2.0); Hematocrit 42.6 % (42.0-52.0); Hemoglobin 13.1 g/dL (14.1-18.0); Lymphocytes # 0.8 K/mm3 (0.7-4.5); Lymphocytes % 8.8 % (10-50); Mean Corpuscular HGB Conc 30.8 g/dL (31.8-35.4); Mean Corpuscular Hemoglobin 28.3 pg (27.0-31.2); Mean Corpuscular Volume 91.6 fl (80-94); Mean Platelet Volume 8.7 fl (7.4-10.4); Monocytes # 0.4 K/mm3 (0.1-1.0); Monocytes % 5.1 % (1.7-9.3); Neutrophils # 7.4 K/mm3 (1.8-7.8); Neutrophils % 85.9 % (37.0-80.0); Platelet Count 198 K/mm3 (142-424); Red Blood Count 4.65 M/mm3 (4.60-6.20); White Blood Count 8.6 K/mm3 (4.8-10.8)
[2021-07-11 07:10] LABS: MANUAL DIFFERENTIAL MANUAL DIFFERENTIAL (MANUAL DIFF)
[2021-07-11 07:15] LABS: Anion Gap 9.4 mEq/L (5-15); Blood Urea Nitrogen 22 mg/dl (9-20); Calcium 8.4 mg/dl (8.4-10.2); Carbon Dioxide 27 mmol/L (22.0-30.0); Chloride 106 mmol/L (98-107); Creatinine Clearance Estimated 88 mL/min (50-200); Estimated Glomerular Filt Rate 132 ml/min (>60); GFR (African American) 159 ML/MIN (>60); Glucose 162 mg/dl (74-100); Potassium 4.4 mmoL/L (3.5-5.1); Sodium 138 mmol/L (136-145)
--- NOTE | 2021-07-11 07:20 | HMH.DCSUM ---
General - General Admission date:: 07/08/21 Discharge date: 07/11/21 HPI HPI: 75-year-old male presented to the emergency department yesterday morning with profound weakness and inability to care for himself at home. Patient had had a hospitalization at this facility for COVID-19 pneumonia and had been discharged on July 02. On the day of discharge patient had felt well and had had improvement in his breathing as well as his activity level in the hospital room. Patient reports within 24 hours of returning home he noted weakness and difficulty getting out of bed. His symptoms of weakness and malaise progressed to the day until he came to the emergency department. Work-up in the ER revealed an elevated white blood cell count along with signs of worsening pneumonia on x-ray. Upon arrival to the emergency department patient was also found to be in A. fib with rapid ventricular response. Patient was given intravenous Cardizem and A. fib became rate controlled. He was given a loading dose of oral Cardizem as well and continued on his home metoprolol on admission. This morning the patient reports feeling slightly better although remains very weak. He tells me he was unaware of his A. fib with rapid ventricular response. He continues to have a cough that remains nonproductive. He denies any fevers at home. He denies chest pain. Hospital Course Hospital Course: Patient was admitted and placed on broad-spectrum antibiotics with cefepime and vancomycin for his persistent pneumonia. By the day of admission patient was on day 11 since his Covid diagnosis so Remdesivir was not restarted. Patient initially required supplemental oxygen of 5 L/min via nasal cannula. Patient was started on steroids and duo nebs. Patient gradually improved each day. Lung exam improved from rhonchi and wheezing to only faint rales at the bases. Patient's activity tolerance improved. Oxygen was weaned from 5 L back to his baseline of 3 L by the day of discharge. Patient was able to ambulate with a walker and denied significant weakness or shortness of breath. Patient was discharged home. Patient will follow up in the office in 1 week. Objective Vital signs: Temp Pulse Resp BP Pulse Ox 97.8 F 96 H 20 115/54 L 93 L 07/11/21 03:44 07/11/21 03:44 07/11/21 03:44 07/11/21 03:44 07/11/21 03:44 no acute distress - *Routine Respiratory Exam Present: rales (Bibasilar) - *Routine Cardiovascular Exam Present: RRR - *Routine Abdominal Exam Present: soft, normoactive bowel sounds. Absent: tenderness Results Labs on day of discharge: Labs from last 24 hours 07/11/21 07/11/21 07/11/21 06:33 06:33 05:25 WBC 8.6 RBC 4.65 Hgb 13.1 L Hct 42.6 MCV 91.6 MCH 28.3 MCHC 30.8 L RDW 15.0 Plt Count 198 MPV 8.7 Neut % (Auto) 85.9 H Lymph % (Auto) 8.8 L [place] % (Auto) 5.1 Eos % (Auto) 0.0 L Baso % (Auto) 0.1 Neut # (Auto) 7.4 Lymph # (Auto) 0.8 [place] # (Auto) 0.4 Eos # (Auto) 0.0 Baso # (Auto) 0.0 Total Counted Neutrophils % (Manual) Lymphocytes % (Manual) Monocytes % (Manual) Platelet Estimate Hypochromasia Sodium 138 Potassium 4.4 Chloride 106 Carbon Dioxide 27 Anion Gap 9.4 BUN 22 H Creatinine 0.60 L D Estimated Creat Clear 88 Estimated GFR 132 Est GFR ( Amer) 159 D Glucose 162 H POC Glucose 254 H Calcium 8.4 C-Reactive Protein Vancomycin Peak Vancomycin Trough 07/10/21 07/10/21 07/10/21 19:37 19:22 15:54 WBC RBC Hgb Hct MCV MCH MCHC RDW Plt Count MPV Neut % (Auto) Lymph % (Auto) [place] % (Auto) Eos % (Auto) Baso % (Auto) Neut # (Auto) Lymph # (Auto) [place] # (Auto) Eos # (Auto) Baso # (Auto) Total Counted Neutrophils % (Manual) Lymphocytes % (Manual) Monocytes % (Manual) Platelet Estimat
[2021-07-11 07:23] LABS: C-Reactive Protein 6.8 mg/L (0-4); Lymphocytes % 13 % (10-50); Monocytes % 2 % (2-9); Neutrophils % 85 % (42-76); Platelet Estimate Normal; RBC Morphology Normal; Total Cells Counted 100
[2021-07-11 07:29] VITALS: BP 122/65; PULSE 101; RESP 20; TEMP 36.6; O2SAT 90
== END 2021-07-11 09:20 | disposition home or self-care (01) | DRG 177 ==
LOC: ER 14:25 → 2ND 17:02
PROVIDERS: Admitting Provider Family Medicine; Emergency Provider Emergency Medicine; PCP Family Medicine; Visit Provider Family Medicine
DX: U07.1 COVID-19 (principal); J12.82 Pneumonia due to coronavirus disease 2019; J96.01 Acute respiratory failure with hypoxia; I48.91 Unspecified atrial fibrillation; Z79.4 Long term (current) use of insulin; I11.0 Hypertensive heart disease with heart failure; I50.9 Heart failure, unspecified; Z99.81 Dependence on supplemental oxygen; Z95.5 Presence of coronary angioplasty implant and graft; E11.40 Type 2 diabetes mellitus with diabetic neuropathy, unspecified; E66.9 Obesity, unspecified; Z68.28 Body mass index [BMI] 28.0-28.9, adult; Z79.02 Long term (current) use of antithrombotics/antiplatelets
CPT/HCPCS: 36415; 71045; 80048; 80053; 80202; 82962; 83880; 84484; 85007; 85025; 85610; 85730; 86140; 87070; 87077; 87186; 87205; 93005; 94640; 94760; 94761; 96365; 96367; 97162; 99284; J3370; U0003

== ENCOUNTER → 2021-07-24 11:28 | Outpatient (CLI) | payer MEDICARE, OTHER, SELFPAY ==
[2021-07-24 12:04] LABS: Basophils # 0.1 K/mm3 (0-0.2); Basophils % 1.1 % (0.1-2.0); Eosinophils # 0.4 K/mm3 (0.0-0.4); Hematocrit 39.9 % (42.0-52.0); Hemoglobin 12.4 g/dL (14.1-18.0); Lymphocytes # 1.6 K/mm3 (0.7-4.5); Lymphocytes % 22.2 % (10-50); Mean Corpuscular HGB Conc 31.1 g/dL (31.8-35.4); Mean Corpuscular Hemoglobin 29.2 pg (27.0-31.2); Mean Corpuscular Volume 93.7 fl (80-94); Mean Platelet Volume 8.9 fl (7.4-10.4); Monocytes # 0.5 K/mm3 (0.1-1.0); Monocytes % 6.6 % (1.7-9.3); Neutrophils # 4.6 K/mm3 (1.8-7.8); Neutrophils % 65.1 % (37.0-80.0); Platelet Count 218 K/mm3 (142-424); Red Blood Count 4.26 M/mm3 (4.60-6.20); Red Cell Distribution Width 16.4 % (11.5-17.5); White Blood Count 7.1 K/mm3 (4.8-10.8)
[2021-07-24 13:07] LABS: Chloride 106 mmol/L (98-107)
[2021-07-24 13:08] LABS: Potassium 4.8 mmoL/L (3.5-5.1); Sodium 142 mmol/L (136-145)
[2021-07-24 13:11] LABS: Anion Gap 13.8 mEq/L (5-15); Blood Urea Nitrogen 14 mg/dl (9-20); Calcium 8.1 mg/dl (8.4-10.2); Carbon Dioxide 27 mmol/L (22.0-30.0); Estimated Glomerular Filt Rate 82 ml/min (>60); GFR (African American) 100 ML/MIN (>60); Glucose 125 mg/dl (74-100)
== END ==
PROVIDERS: Visit Provider Physician Assistant
DX: I10 Essential (primary) hypertension (principal); J44.9 Chronic obstructive pulmonary disease, unspecified
CPT/HCPCS: 36415; 80048; 85025

== ENCOUNTER → 2021-08-06 12:01 | Outpatient (CLI) | payer MEDICARE, OTHER, SELFPAY ==
[2021-08-06 13:31] LABS: Chloride 100 mmol/L (98-107); Potassium 4.9 mmoL/L (3.5-5.1); Sodium 139 mmol/L (136-145)
[2021-08-06 13:34] LABS: Anion Gap 11.9 mEq/L (5-15); Blood Urea Nitrogen 10 mg/dl (9-20); Calcium 8.7 mg/dl (8.4-10.2); Carbon Dioxide 32 mmol/L (22.0-30.0); Estimated Glomerular Filt Rate 110 ml/min (>60); GFR (African American) 133 ML/MIN (>60); Glucose 145 mg/dl (74-100)
== END ==
PROVIDERS: Visit Provider Internal Medicine Cardiovascular Disease
DX: E11.40 Type 2 diabetes mellitus with diabetic neuropathy, unspecified (principal); E66.9 Obesity, unspecified; F17.200 Nicotine dependence, unspecified, uncomplicated; I48.0 Paroxysmal atrial fibrillation; I50.31 Acute diastolic (congestive) heart failure; I50.9 Heart failure, unspecified; R00.1 Bradycardia, unspecified; R06.00 Dyspnea, unspecified; R94.31 Abnormal electrocardiogram [ECG] [EKG]; R94.39 Abnormal result of other cardiovascular function study; Z95.1 Presence of aortocoronary bypass graft; Z79.84 Long term (current) use of oral hypoglycemic drugs; Z68.30 Body mass index [BMI] 30.0-30.9, adult
CPT/HCPCS: 36415; 80048

== ENCOUNTER → 2021-08-14 10:25 | Outpatient (CLI) | payer MEDICARE, OTHER, SELFPAY ==
[2021-08-14 11:28] LABS: Chloride 98 mmol/L (98-107); Potassium 4.8 mmoL/L (3.5-5.1); Sodium 137 mmol/L (136-145)
[2021-08-14 11:31] LABS: Anion Gap 10.8 mEq/L (5-15); Blood Urea Nitrogen 11 mg/dl (9-20); Carbon Dioxide 33 mmol/L (22.0-30.0); Estimated Glomerular Filt Rate 110 ml/min (>60); GFR (African American) 133 ML/MIN (>60); Glucose 84 mg/dl (74-100)
== END ==
PROVIDERS: Visit Provider Internal Medicine Cardiovascular Disease
DX: F17.200 Nicotine dependence, unspecified, uncomplicated (principal); I25.10 Atherosclerotic heart disease of native coronary artery without angina pectoris; I48.0 Paroxysmal atrial fibrillation; I50.31 Acute diastolic (congestive) heart failure; I50.9 Heart failure, unspecified; R00.0 Tachycardia, unspecified; Z95.1 Presence of aortocoronary bypass graft
CPT/HCPCS: 36415; 80048

== ENCOUNTER 2021-11-15 04:19 | Inpatient (IN) | payer MEDICARE, OTHER, SELFPAY ==
[2021-11-15] VITALS (35 sets, daily range): BP systolic 83–138; BP diastolic 37–90; PULSE 34–77; RESP 12–28; TEMP 36.4–36.6; O2SAT 85–98; BMI 30.7; BMI 30.9
--- NOTE | 2021-11-15 04:14 | ECG_ITS ---
APPROVED REPORT Exam: Resting ECG HR:37 bpm ECG Measurements Heart Rate 37 AXES QRSd 152 QRS 130 QT 542 T 102 QTc 425 Conclusion Idioventricular rhythm with premature supraventricular complexes Right bundle branch block Abnormal ECG Electronically signed by : Amando Ojeda MD 11/16/2021 08:33:26
--- NOTE | 2021-11-15 04:21 | XR_ITS ---
PROCEDURE INFORMATION: Exam: XR Chest Exam date and time: 11/15/2021 4:21 AM Age: 76 years old Clinical indication: Shortness of breath; Additional info: SOB TECHNIQUE: Imaging protocol: XR of the chest. Views: 1 view. COMPARISON: CR XR CHEST PORTABLE 07/08/2021 9:25 AM FINDINGS: Lungs: Patchy bibasilar left greater than right airspace disease are noted minimally improved compared to the prior study. Pleural spaces: Unremarkable. No pleural effusion. No pneumothorax. Heart/Mediastinum: The heart is prominent but unchanged Bones/joints: The patient is status post median sternotomy. IMPRESSION: Bilateral patchy airspace disease minimally improved on the right.
[2021-11-15 04:47] LABS: Basophils # 0.1 K/mm3 (0-0.2); Basophils % 0.4 % (0.1-2.0); Eosinophils # 0.1 K/mm3 (0.0-0.4); Eosinophils % 0.7 % (0.1-12.0); Hematocrit 37.9 % (42.0-52.0); Hemoglobin 11.8 g/dL (14.1-18.0); Lymphocytes # 1.9 K/mm3 (0.7-4.5); Lymphocytes % 15.4 % (10-50); Mean Corpuscular HGB Conc 31.1 g/dL (31.8-35.4); Mean Corpuscular Hemoglobin 28.5 pg (27.0-31.2); Mean Corpuscular Volume 91.6 fl (80-94); Mean Platelet Volume 9.6 fl (7.4-10.4); Monocytes # 0.6 K/mm3 (0.1-1.0); Monocytes % 5.3 % (1.7-9.3); Neutrophils # 9.5 K/mm3 (1.8-7.8); Neutrophils % 78.2 % (37.0-80.0); Platelet Count 177 K/mm3 (142-424); Red Blood Count 4.14 M/mm3 (4.60-6.20); Red Cell Distribution Width 16.6 % (11.5-17.5); White Blood Count 12.2 K/mm3 (4.8-10.8)
[2021-11-15 04:53] LABS: Chloride 102 mmol/L (98-107); Sodium 139 mmol/L (136-145)
[2021-11-15 04:54] LABS: Potassium 5.2 mmoL/L (3.5-5.1)
[2021-11-15 04:56] LABS: Alanine Aminotransferase 18 U/L (12-78); Albumin Level 3.8 g/dl (3.5-5.0); Albumin/Globulin Ratio 1.2 (1.1-1.8); Alkaline Phosphatase 68 U/L (38-126); Anion Gap 12.2 mEq/L (5-15); Aspartate Amino Transferase 22 U/L (17-59); Bilirubin,Total 0.5 mg/dl (0.2-1.3); Blood Urea Nitrogen 25 mg/dl (9-20); Carbon Dioxide 30 mmol/L (22.0-30.0); Creatinine Clearance Estimated 87 mL/min (50-200); Estimated Glomerular Filt Rate 65 ml/min (>60); GFR (African American) 79 ML/MIN (>60); Globulin 3.1 g/dL (1.3-3.2); Phosphorous 4.5 mg/dl (2.5-4.5); Total Protein,Serum 6.9 g/dl (6.3-8.2)
[2021-11-15 04:57] LABS: Coronavirus 19, PCR Not Detected (NotDetected); Influenza A, PCR Not Detected (NotDetected); Influenza B, PCR Not Detected (NotDetected)
[2021-11-15 04:57] LABS: Calcium 8.6 mg/dl (8.4-10.2); Glucose 244 mg/dl (74-100); Magnesium 1.1 mg/dl (1.6-2.3)
[2021-11-15 05:05] LABS: NT Pro Brain Natriuretic Pep. 9160 pg/mL (0-450)
[2021-11-15 05:09] LABS: Troponin I 0.02 ng/ml (0.00-0.034)
--- NOTE | 2021-11-15 05:12 | HMH.EDGENADL ---
ED Disposition Clinical Impression: Acute exacerbation of chronic obstructive airways disease, Symptomatic bradycardia, Hypomagnesemia Community acquired pneumonia Qualifiers: Laterality: right Lung location: lower lobe of lung Qualified Code(s): J18.9 - Pneumonia, unspecified organism Disposition: Admitted As Inpatient Condition on Discharge: Serious - Critical Care Critical Care Time: Yes Attestation: On 11/15/21, the high probability of a clinically significant, sudden or life threatening deterioration of the following system(s) required my full and direct attention, intervention and personal management. The time I documented below is in addition to time spent performing reported procedures but includes the following listed in this critical care notation. Total Critical Care Time: 45 Vital system(s) involved:: Circulatory Failure, Respiratory Failure My critical care processes included: Assessment & monitoring of V/S, Initial and Re-exams, Data Review/Interpretation, Coordinating Care, Medication Orders and management, Documentation Medical Decision Making - Medical Records Medical records reviewed: Yes: I reviewed the patient's medical records. - Edmund Inquiry Pt receiving controlled substance: No Vital Signs: 11/15/21 04:09 11/15/21 04:30 Temperature 97.9 F Temperature Source Oral Pulse Rate 37 L Pulse Rate [Right Radial] 37 L Respiratory Rate 24 19 Blood Pressure 111/53 L Blood Pressure [Right Arm] 109/44 L Blood Pressure Mean [Right Arm] 65 Blood Pressure Source [Right Arm] Automatic Cuff Blood Pressure Position [Right Arm] Sitting 02 Sat by Pulse Oximetry 85 L 93 L Oxygen Delivery Method Room Air Nasal Cannula Oxygen Flow Rate (LPM) 4 - Lab Data Lab Results 11/15/21 04:26: SARS-CoV-2 (PCR) Not detected, Influenza A Untype (PCR) Not detected, Influenza Type B (PCR) Not detected 11/15/21 04:40: WBC 12.2 H, RBC 4.14 L, Hgb 11.8 L, Hct 37.9 L, MCV 91.6, MCH 28.5, MCHC 31.1 L, RDW 16.6, Plt Count 177, MPV 9.6, Neut % (Auto) 78.2, Lymph % (Auto) 15.4, [place] % (Auto) 5.3, Eos % (Auto) 0.7, Baso % (Auto) 0.4, Neut # (Auto) 9.5 H, Lymph # (Auto) 1.9, [place] # (Auto) 0.6, Eos # (Auto) 0.1, Baso # (Auto) 0.1 11/15/21 04:40: Sodium 139, Potassium 5.2 H, Chloride 102, Carbon Dioxide 30, Anion Gap 12.2, BUN 25 H, Creatinine 1.10, Estimated Creat Clear 87, Estimated GFR 65, Est GFR ( Amer) 79, Glucose 244 H, Calcium 8.6, Phosphorus 4.5, Magnesium 1.1 L, Total Bilirubin 0.5, AST 22, ALT 18, Alkaline Phosphatase 68, Troponin I 0.02, Total Protein 6.9, Albumin 3.8, Globulin 3.1, Albumin/Globulin Ratio 1.2 11/15/21 04:40: Digoxin 1.10 11/15/21 04:40: NT-Pro-B Natriuret Pep 9160 H Result diagrams: 11/15/21 04:40 11/15/21 04:40 Orders (Tests/Meds): ED MEDICATIONS Generic Name Dose Route Start Last Admin Trade Name Freq PRN Reason Stop Dose Admin Acetaminophen 650 mg 11/15/21 05:32 Acetaminophen 325mg Tab PO 12/15/21 05:31 Q4HP PRN Fever or Mild Pain Albuterol/Ipratropium 3 ml 11/15/21 04:30 11/15/21 04:49 Ipratropium/Albuterol 3 Ml Neb 12/15/21 04:29 3 ml Q1H CHAYA Administration Apixaban 5 mg 11/15/21 09:00 Apixaban 5mg Tablet PO 12/15/21 08:59 BID [facility] Aspirin 81 mg 11/15/21 09:00 Aspirin Ec 81mg Tablet PO 12/15/21 08:59 DAILY [facility] Atorvastatin Calcium 40 mg 11/15/21 21:00 Atorvastatin 40mg Tablet PO 12/15/21 20:59 HS CHAYA Finasteride 5 mg 11/15/21 09:00 Finasteride 5mg Tablet PO 12/15/21 08:59 DAILY [facility] Fluticasone/Umeclidinium/Vilanterol puffs 11/15/21 09:00 Fluticasone/Umeclidin/Vilanter 100/62.5/25mcg Inhaler 12/15/21 08:59 DAILY [facility] Azithromycin 500 mg/ Sodium 250 mls @ 250 mls/hr 11/15/21 05:00 11/15/21 05:42 Chloride IV 11/29/21 04:59 250 mls/hr Q24H CHAYA Administration Ceftriaxone Sodium 1 gm/ 50 mls @ 100 mls/hr 11/15/21 05:00 11/15/21 05:17 Sodium Chloride IV 11/29/21 04:5
--- NOTE | 2021-11-15 05:42 | PC.NURSE ---
MD Heidi spoke with MD Kathy as well as MD Dakotah. Dakotah agrees to admit pt. House notified for need of bed assignment. Pt states he feels much better at this time. is at bedside and pt is on zoll monitor.
--- NOTE | 2021-11-15 07:14 | HMH.HP ---
*Admission Date: 11/15/21 *Chief complaint: Lightheadedness and shortness of breath *History of present illness: 76-year-old male with history of atrial fibrillation, COPD, diabetes presented to the emergency department with increasing shortness of breath over the last day. Patient reports yesterday morning when ambulating at home he felt like he was about to pass out from being so lightheaded. As the day progressed he noticed progressive dyspnea on exertion with cough and scant sputum production. He denies fevers or chills at home. As he continued to feel worse throughout the day he ultimately sought treatment at the emergency department. Work-up in the emergency department has revealed rales and expiratory wheezes on lung exam with bibasilar airspace disease on imaging and EKG showing bradycardia with idioventricular rhythm. Patient takes beta-blockers, calcium channel blockers, digoxin for his atrial fibrillation. The ER physician contacted Dr. Chavez who recommended holding all medicines. External pacer has been placed in the event it is needed. Patient has remained stable in the emergency department and gives all of the history. He denies chest pain, headache, palpitations. [facility] History I have reviewed the patient's past medical history: Yes Medical History: Reports:: Asthma, Atrial Fibrillation, Congestive Heart Failure, Chronic Obstructive Pulmonary Disease (COPD), Diabetes Mellitus Type 2, Gastroesophageal Reflux Disease(GERD), Home Oxygen, Hyperlipidemia, Hypertension, Myocardial Infarction Denies:: Cancer, Diabetes Mellitus Type 1, MRSA, Seizures *Have you ever received a pneumonia vaccine?: Yes *Have you received a flu vaccine this season?: Yes Other Medical History: Reports: Arthritis, Cataracts, Sinus Problems, Other Laterality Cases: Right: Arthroscopy Knee Other Surgeries: Yes: CABG, Cardiac Catheterization, Cardiac Surgery, Colonoscopy, Coronary Stent, Open Heart Surgery Amputation: No Fractures: No - *Social History Smoking Status: Former smoker Tobacco Type: cigarettes # Packs/Day (cigarettes): 1 #Yrs smoked (if former smoker): 62 Alcohol Intake: never Alcohol Intake Frequency:: other Substance Use Type: denies use *Occupational Status:: retired Housing: house Household Members: spouse *Travel in the last 8 weeks: None Family Hx:: Diabetes Review of Systems - Review of Systems Review of systems:: pertinent systems reviewed and negative unless documented below Meds Home Medications Medication Instructions Recorded Confirmed Type atorvastatin 40 mg tablet 40 mg PO HS 90 Days #90 12/28/17 11/15/21 History finasteride 5 mg tablet 5 mg PO DAILY 90 Days #90 12/28/17 11/15/21 History losartan 50 mg tablet 50 mg PO DAILY 90 Days #90 12/28/17 11/15/21 History montelukast 10 mg tablet 10 mg PO DAILY 90 Days #90 12/28/17 11/15/21 History Empagliflozin [Jardiance] 25 mg PO DAILY 09/04/19 11/15/21 History Sitagliptin Phos/Metformin HCl 1 tab PO BID 09/04/19 11/15/21 History [Janumet Xr 50-1,000 mg Tablet] Tamsulosin HCl 0.4 mg PO DAILY 09/04/19 11/15/21 History fluticasone fur. 100 mcg-umeclid 1 puff IH DAILY each 11/15/19 11/15/21 History 62.5 mcg-vilant 25 mcg inhalat.powder cetirizine 10 mg tablet 10 mg PO DAILY tab 05/08/20 11/15/21 History Aspirin [Adult Low Dose Aspirin EC] 81 mg PO DAILY 05/08/21 11/15/21 History Omeprazole [Omeprazole 40mg 40 mg PO DAILY 05/08/21 11/15/21 History Capsule] apixaban 5 mg tablet 5 mg PO BID tab 05/16/21 11/15/21 History Nicotine [Nicotine Patch See Rx Instructions TRANSDERMA 06/06/21 11/15/21 History 14mg/24Hrs] DAILY Insulin Detemir [Levemir 86 units SQ DAILY 07/08/21 11/15/21 History 100units/mL 3mL flexpen] Digoxin 125 mcg PO DAILY 11/15/21 11/15/21 History Furosemide [Furosemide 20mg Tab*] 20 mg PO QAM 11/15/21 11/15/21 History Metoprolol Tartrate 50 mg PO BID 11/15/21 11/15/21 History Spironolactone [Spironolactone 25 mg PO DAILY 11/15/21 11/15/21 Histo
[2021-11-15 08:17] LABS: Troponin I 0.02 ng/ml (0.00-0.034)
--- NOTE | 2021-11-15 09:00 | PC.NURSE ---
DIET TRAY GIVEN
[2021-11-15 10:29] LABS: POC Glucose,Bedside 290 (70-110)
--- NOTE | 2021-11-15 11:00 | PC.NURSE ---
PT UPDATED ON INPT BED SITUATION
[2021-11-15 12:04] LABS: Troponin I 0.02 ng/ml (0.00-0.034)
--- NOTE | 2021-11-15 13:09 | PC.NURSE ---
REPORT CALLED TO FLOOR
--- NOTE | 2021-11-15 13:34 | PC.NURSE ---
pt arrived to the floor at this time
--- NOTE | 2021-11-15 15:22 | HMH.PHAVTE ---
[facility] Pharmacy VTE Monitoring - Patient Demographics Admission date: 11/15/21 Report Date: 11/15/21 Time: : Allergies/Adverse Reactions: Patient Allergies Penicillins Allergy (Verified 10/10/21 10:24) Hives Height: 1.85 m Weight: 106.141 kg Patient Problems: Current Active Problems (Last Updated 09/11/21 @ 10:04 by Drea Jacome RN) Community acquired pneumonia (Acute) Acute exacerbation of chronic obstructive airways disease (Acute) Symptomatic bradycardia (Acute) Hypomagnesemia (Acute) Idioventricular rhythm (Acute) Abnormal electrocardiography (Acute) - VTE Risk Labs: VTE Related Lab Results Hgb 11.8 g/dL (14.1-18.0) L 11/15/21 04:40 Hct 37.9 % (42.0-52.0) L 11/15/21 04:40 Plt Count 177 K/mm3 (142-424) 11/15/21 04:40 BUN 25 mg/dl (9-20) H 11/15/21 04:40 Creatinine 1.10 mg/dl (0.66-1.25) 11/15/21 04:40 Estimated Creat Clear 87 mL/min (50-200) 11/15/21 04:40 - Prophylaxis Types of VTE Prophylaxis: TEDS Knee High Location of Applied Device: Bilateral Lower Extremeties (AMENA HOSE ORDERED)
[2021-11-15 17:44] LABS: POC Glucose,Bedside 371 (70-110)
[2021-11-16] VITALS (8 sets, daily range): BP systolic 107–149; BP diastolic 60–70; PULSE 57–90; RESP 16–24; TEMP 36.4–37; O2SAT 92–98; BMI 30.9; BMI 31.0
[2021-11-16 05:31] LABS: POC Glucose,Bedside 303 (70-110)
[2021-11-16 08:09] LABS: Basophils # 0.1 K/mm3 (0-0.2); Basophils % 0.5 % (0.1-2.0); Eosinophils % 0.3 % (0.1-12.0); Hematocrit 37.5 % (42.0-52.0); Hemoglobin 11.7 g/dL (14.1-18.0); Lymphocytes # 1.1 K/mm3 (0.7-4.5); Lymphocytes % 8.9 % (10-50); Mean Corpuscular HGB Conc 31.4 g/dL (31.8-35.4); Mean Corpuscular Volume 92.5 fl (80-94); Mean Platelet Volume 9.1 fl (7.4-10.4); Monocytes # 0.2 K/mm3 (0.1-1.0); Monocytes % 1.8 % (1.7-9.3); Neutrophils # 10.6 K/mm3 (1.8-7.8); Neutrophils % 88.5 % (37.0-80.0); Platelet Count 178 K/mm3 (142-424); Red Blood Count 4.05 M/mm3 (4.60-6.20); Red Cell Distribution Width 16.7 % (11.5-17.5)
[2021-11-16 08:11] LABS: Anion Gap 15.3 mEq/L (5-15); Blood Urea Nitrogen 32 mg/dl (9-20); Calcium 8.7 mg/dl (8.4-10.2); Carbon Dioxide 25 mmol/L (22.0-30.0); Chloride 100 mmol/L (98-107); Creatinine Clearance Estimated 96 mL/min (50-200); Estimated Glomerular Filt Rate 73 ml/min (>60); GFR (African American) 88 ML/MIN (>60); Glucose 295 mg/dl (74-100); Potassium 5.3 mmoL/L (3.5-5.1); Sodium 135 mmol/L (136-145)
[2021-11-16 08:13] LABS: MANUAL DIFFERENTIAL MANUAL DIFFERENTIAL (MANUAL DIFF)
--- NOTE | 2021-11-16 08:15 | P.PN_ITS ---
Internal Medicine - PN: Subj *Date: 11/16/21 *Time: 08:15 Interval history: Patient complains of swollen legs this morning. Patient's bradycardia has resolved. He reports persistent dyspnea on exertion. Exam Vital signs and Labs for Last 24 Hours: Temp Pulse Resp BP Pulse Ox 98.1 F 68 22 107/64 L 95 11/16/21 04:00 11/16/21 04:00 11/16/21 04:00 11/16/21 04:00 11/16/21 06:25 Laboratory Results - last 24 hr 11/15/21 07:45: Troponin I 0.02 11/15/21 10:22: POC Glucose 290 H 11/15/21 11:15: Troponin I 0.02 11/15/21 17:20: POC Glucose 371 H* 11/15/21 21:23: POC Glucose 303 H* 11/16/21 07:52: WBC 12.0 H, RBC 4.05 L, Hgb 11.7 L, Hct 37.5 L, MCV 92.5, MCH 29.0, MCHC 31.4 L, RDW 16.7, Plt Count 178, MPV 9.1, Neut % (Auto) 88.5 H, Lymph % (Auto) 8.9 L, [place] % (Auto) 1.8, Eos % (Auto) 0.3, Baso % (Auto) 0.5, Neut # (Auto) 10.6 H, Lymph # (Auto) 1.1, [place] # (Auto) 0.2, Eos # (Auto) 0.0, Baso # (Auto) 0.1 11/16/21 07:52: Sodium 135 L, Potassium 5.3 H, Chloride 100, Carbon Dioxide 25, Anion Gap 15.3 H, BUN 32 H D, Creatinine 1.00, Estimated Creat Clear 96, Estimated GFR 73, Est GFR ( Amer) 88, Glucose 295 H, Calcium 8.7 I & O for Last 24 hours: Intake & Output 11/13/21 11/14/21 11/15/21 11/16/21 11:59 11:59 11:59 11:59 Intake Total 870 / 870 Output Total 900 / 900 Balance -30 / -30 Weight 233 lb 233 lb 15.978 oz Microbiology Reports for the Last 24 Hours: Microbiology 11/15/21 23:23 Sputum - Expectorated Sputum Gram Stain - Final Narrative: Patient looks comfortable. Heart has an irregular rate and rhythm. Lungs have decreased breath sounds at the bases, wheezing has resolved. Lower extremities have 1+ edema. Telemitry shows controlled a-fib Assessment and Plan (1) Symptomatic bradycardia Status: Acute Category: Medical Code(s): R00.1 - Bradycardia, unspecified (2) Idioventricular rhythm Status: Acute Category: Medical Code(s): I44.2 - Atrioventricular block, complete (3) Acute exacerbation of chronic obstructive airways disease Status: Acute Category: Medical Code(s): J44.1 - Chronic obstructive pulmonary disease with (acute) exacerbation (4) Community acquired pneumonia Status: Acute Qualifiers: Laterality: right Lung location: lower lobe of lung Qualified Code(s): J18.9 - Pneumonia, unspecified organism Category: Medical Code(s): J18.9 - Pneumonia, unspecified organism (5) Hypomagnesemia Status: Acute Category: Medical Code(s): E83.42 - Hypomagnesemia (6) Abnormal electrocardiography Status: Acute Category: Medical Code(s): R94.31 - Abnormal electrocardiogram [ECG] [EKG] - Assessment and plan all Dx Assessment and Plan for all problems:: 1. Lasix 40 mg IV 2. Patient beta-umer will be restarted 3. Encourage ambulation, incentive spirometry to increase pulmonary toilet
[2021-11-16 08:28] LABS: Magnesium 1.5 mg/dl (1.6-2.3)
[2021-11-16 08:56] LABS: Lymphocytes % 9 % (10-50); Monocytes % 2 % (2-9); Neutrophils % 89 % (42-76); Platelet Estimate Normal; Total Cells Counted 100
[2021-11-16 08:58] LABS: RBC Morphology Normal
[2021-11-16 12:00] LABS: POC Glucose,Bedside 261 (70-110)
[2021-11-16 12:00] LABS: POC Glucose,Bedside 376 (70-110)
[2021-11-16 17:05] LABS: POC Glucose,Bedside 306 (70-110)
--- NOTE | 2021-11-16 18:34 | PC.NURSE ---
Pt has done fine this shift. Pt has diuresed approx 3.5L this shift after IV lasix administration. Pt has used IS while awake, IS @ best 1500cc's. Pt has ambulated w/ walker t/o room this shift. No other acute changes or complaints, will continue to monitor.
[2021-11-17] VITALS (23 sets, daily range): BP systolic 106–147; BP diastolic 53–79; PULSE 70–120; RESP 14–24; TEMP 36.3–36.9; O2SAT 90–99; BMI 31.4; BMI 31.2
--- NOTE | 2021-11-17 | IR_ITS ---
APPROVED REPORT Patient Location: Inpatient [facility] Operator: PRISCILLA Hobbs RT (R) PROCEDURES 1. Pocket formation for Permanent Pacemaker Placement. 2. Placement of an atrial sensing and pacing coil into the right atrial appendage. 3. Placement of a ventricular sensing and pacing coil in the right ventricular apex. 4. Permanent Pacemaker Placement. INDICATION Symptomatic Bradycardia Informed consent was obtained prior to the procedure. COMPLICATIONS None Estimated Blood Loss: Less than 10 mls TECHNIQUE 1% Lidocaine with epinephrine used to anesthetized the left anterior aspect of the chest. Scalpel was used to make the initial cutaneous incision while electrocautery was used to dissect down tinto the fascia. The fascia was lifted off the pectoralis muscle and digitally manipulated creating a pocket for the pacemaker. The patient was then placed in Trendelenburg position and the subclavian vein was accessed twice via the Selinger technique, there are two wires in the vein. A 6 Spanish sheath was placed under fluoroscopic guidance into the subclavian vein over one of the wires while keeping the other wire in place within the subclavian vein. The dilator was removed from the sheath. Using fluoroscopic guidance, the ventricular lead was placed into the right ventricular apex, screwed and secured into place. Electronic interrogation proved acceptable thresholds and voltage within the lead. Using 3-0 silk, the ventricular lead was then secured into place. Lead was secured to the facia using the 3-0 silk. Following this, the sheath was pealed away. An additional 6 Spanish fresh sheath and dilator was placed over the existing wire. Using fluoroscopic guidance, the atrial lead was the placed into the right atrial appendage and screwed and secured in place. Electrical interrogation demonstrated acceptable thresholds and voltage number. The atrial lead was then secured into place using 3-0 silk. 1 gram of Ancef was used to flush the pocket. Following the pacemaker generator being secured to the fascia and in place, Monocryl was used to close the subcutaneous layers while patrick were used to close the cutaneous layer. A pressure dressing was placed and the patient was transferred to the postop holding area in stable condition for postoperative care. INTERROGATION Generator Model number: [employer], L311 Generator Serial number: [id number] Atrial lead model number: INGEVITY+ 52 CM, 7841 Atrial lead serial number: [id number] P-wave: 1.0 mV Impedence: Afib Threshold: 580 ohms Right Ventricular lead model number: INGEVITY+ 59 CM, 7842 Right Ventricular lead serial number: [id number] R-wave: 6.0 mV Impedence: 0.5V@0.4ms Threshold: 630 ohms Pacing Parameters: Mode: DDDR Base/Max Track: 60/130 PPM No diaphragmatic stimulation at 10 volts. IMPRESSION 1. Successful pocket formation for Permanent Pacemaker Placement. 2. Successful placement of an atrial sensing and pacing coil into the right atrial appendage. 3. Successful placement of a ventricular sensing and pacing coil in the right ventricular apex. 4. Successful permanent Pacemaker Placement. PLAN 1. Post op wound care, follow up office visit. Electronically signed by : Darell Chavez MD 11/17/2021 15:31:39
[2021-11-17 00:40] LABS: POC Glucose,Bedside 343 (70-110)
--- NOTE | 2021-11-17 05:55 | PC.NURSE ---
Monica MONTGOMERY NOTIFIED OF CONSULT.
[2021-11-17 06:20] LABS: Basophils % 0.3 % (0.1-2.0); Eosinophils % 0.1 % (0.1-12.0); Hematocrit 37.9 % (42.0-52.0); Hemoglobin 11.6 g/dL (14.1-18.0); Lymphocytes # 0.7 K/mm3 (0.7-4.5); Lymphocytes % 6.6 % (10-50); Mean Corpuscular HGB Conc 30.7 g/dL (31.8-35.4); Mean Corpuscular Hemoglobin 28.9 pg (27.0-31.2); Mean Corpuscular Volume 93.9 fl (80-94); Mean Platelet Volume 9.3 fl (7.4-10.4); Monocytes # 0.3 K/mm3 (0.1-1.0); Platelet Count 187 K/mm3 (142-424); Red Blood Count 4.03 M/mm3 (4.60-6.20); Red Cell Distribution Width 16.9 % (11.5-17.5); White Blood Count 11.1 K/mm3 (4.8-10.8)
[2021-11-17 06:21] LABS: MANUAL DIFFERENTIAL MANUAL DIFFERENTIAL (MANUAL DIFF)
[2021-11-17 06:29] LABS: Hypochromasia 2+; Lymphocytes % 7 % (10-50); Monocytes % 3 % (2-9); Neutrophils % 83 % (42-76); Platelet Estimate Normal; Rouleaux 2+; Total Cells Counted 100
[2021-11-17 06:42] LABS: Blood Urea Nitrogen 35 mg/dl (9-20); Calcium 8.7 mg/dl (8.4-10.2); Carbon Dioxide 27 mmol/L (22.0-30.0); Chloride 100 mmol/L (98-107); Creatinine Clearance Estimated 97 mL/min (50-200); Estimated Glomerular Filt Rate 94 ml/min (>60); GFR (African American) 114 ML/MIN (>60); Glucose 323 mg/dl (74-100); Magnesium 1.4 mg/dl (1.6-2.3); Sodium 136 mmol/L (136-145)
[2021-11-17 06:58] LABS: POC Glucose,Bedside 322 (70-110)
--- NOTE | 2021-11-17 07:22 | SW/DCPLANNER ---
Addendum entered by Dayanna Vences 11/19/21 07:54: PATIENT IS DISCHARGING HOME TODAY AFTER HIS COMPLETED STAY HERE AT [facility]... NO HOME CARE ORDERED OR NEEDED AT THIS TIME... Original Note: PATIENT ADMITTED TO [facility] FROM HOME WITH PNEUMONIA AND ACUTE EXCERBATION OF COPD.. PATIENT STATED HE RESIDES AT HOME AND WAS FEELING WELL UNTIL THIS EPISODE OF SHORTNESS OF BREATH AND DYSPNEA. CM WILL FOLLOW PATIENT THROUGH HIS ACUTE CARE STAY AND ASSIST WITH ANY NEEDS HE MAY HAVE AT TIME OF DISPOSITION...
--- NOTE | 2021-11-17 07:29 | HMH.ACPN2 ---
Internal Medicine - PN: Subj *Date: 11/17/21 *Time: 07:29 Interval history: Patient reports shortness of breath on exertion and dyspnea that woke him from sleep overnight. The dyspnea responded mildly to bronchodilator. He denies chest pain. Swelling in the legs has improved and patient diuresed 3-1/2 L of urine after administration of 40 mg of Lasix yesterday. Exam Vital signs and Labs for Last 24 Hours: Temp Pulse Resp BP Pulse Ox 97.4 F L 81 24 106/68 L 92 L 11/17/21 03:41 11/17/21 04:12 11/17/21 03:41 11/17/21 03:41 11/17/21 03:41 Laboratory Results - last 24 hr 11/16/21 06:45: POC Glucose 261 H 11/16/21 07:52: WBC 12.0 H, RBC 4.05 L, Hgb 11.7 L, Hct 37.5 L, MCV 92.5, MCH 29.0, MCHC 31.4 L, RDW 16.7, Plt Count 178, MPV 9.1, Neut % (Auto) 88.5 H, Lymph % (Auto) 8.9 L, [place] % (Auto) 1.8, Eos % (Auto) 0.3, Baso % (Auto) 0.5, Neut # (Auto) 10.6 H, Lymph # (Auto) 1.1, [place] # (Auto) 0.2, Eos # (Auto) 0.0, Baso # (Auto) 0.1, Total Counted 100, Neutrophils % (Manual) 89 H, Lymphocytes % (Manual) 9 L, Monocytes % (Manual) 2, Platelet Estimate Normal, RBC Morphology Normal 11/16/21 07:52: Sodium 135 L, Potassium 5.3 H, Chloride 100, Carbon Dioxide 25, Anion Gap 15.3 H, BUN 32 H D, Creatinine 1.00, Estimated Creat Clear 96, Estimated GFR 73, Est GFR ( Amer) 88, Glucose 295 H, Calcium 8.7 11/16/21 07:53: Magnesium 1.5 L D 11/16/21 11:51: POC Glucose 376 H* 11/16/21 16:51: POC Glucose 306 H* 11/16/21 21:13: POC Glucose 343 H* 11/17/21 05:55: WBC 11.1 H, RBC 4.03 L, Hgb 11.6 L, Hct 37.9 L, MCV 93.9, MCH 28.9, MCHC 30.7 L, RDW 16.9, Plt Count 187, MPV 9.3, Neut % (Auto) 90.0 H, Lymph % (Auto) 6.6 L, [place] % (Auto) 3.0, Eos % (Auto) 0.1, Baso % (Auto) 0.3, Neut # (Auto) 10.0 H, Lymph # (Auto) 0.7, [place] # (Auto) 0.3, Eos # (Auto) 0.0, Baso # (Auto) 0.0, Total Counted 100, Neutrophils % (Manual) 83 H, Band Neutrophils % 7.0, Lymphocytes % (Manual) 7 L, Monocytes % (Manual) 3, Platelet Estimate Normal, Hypochromasia 2+, Rouleaux 2+ 11/17/21 05:55: Sodium 136, Potassium 5.0, Chloride 100, Carbon Dioxide 27, Anion Gap 14.0, BUN 35 H, Creatinine 0.80, Estimated Creat Clear 97, Estimated GFR 94, Est GFR ( Amer) 114 D, Glucose 323 H, Calcium 8.7, Magnesium 1.4 L 11/17/21 05:55: POC Glucose 322 H* I & O for Last 24 hours: Intake & Output 11/14/21 11/15/21 11/16/21 11/17/21 11:59 11:59 11:59 11:59 Intake Total 1230 / 1230 1150 / 1150 Output Total 900 / 900 3500 / 3500 Balance 330 / 330 -2350 / -2350 Weight 233 lb 233 lb 15.978 oz 237 lb Narrative: Patient looks comfortable. Nasal cannula is in place. Lungs have improved aeration at the bases with more audible crackles now. Heart rate is irregularly irregular. Abdomen is soft. Patient still has trace edema of the right lower extremity. Assessment and Plan (1) Congestive heart failure Status: Acute Qualifiers: Heart failure type: unspecified Heart failure chronicity: acute Qualified Code(s): I50.9 - Heart failure, unspecified Category: Medical Code(s): I50.9 - Heart failure, unspecified (2) Atrial fibrillation with controlled ventricular rate Status: Acute Category: Medical Code(s): I48.91 - Unspecified atrial fibrillation (3) Symptomatic bradycardia Status: Resolved Category: Medical Code(s): R00.1 - Bradycardia, unspecified (4) Idioventricular rhythm Status: Resolved Category: Medical Code(s): I44.2 - Atrioventricular block, complete (5) Acute exacerbation of chronic obstructive airways disease Status: Acute Category: Medical Code(s): J44.1 - Chronic obstructive pulmonary disease with (acute) exacerbation (6) Community acquired pneumonia Status: Acute Qualifiers: Laterality: right Lung location: lower lobe of lung Qualified Code(s): J18.9 - Pneumonia, unspecified organism Category: Medical Code(s): J18.9 - Pneumonia, unspecified organism (7) Hypomagnesemia Status: Acute Category: M
--- NOTE | 2021-11-17 08:01 | HMH.CNCARD ---
History of Present Illness Consult date: 11/17/21 Requesting physician: Amando Claire Chief complaint: Tachybrady Syndrome, SSS Additional Medical History:: 1. Chronic a. fib now with SSS/Tachybrady syndrome, 11/2021, with admission for idioventricular rhythm after treatment for tachycardia recently. A. [place] Pacemaker insertion, 11/17/2021 2. Hypertension A. Echo, 05/2021, normal LV size and function with EF 55%. Moderate RV enlargement with mildly reduced systolic function. Mild MR and TR. 3. Hyperlipidemia 4. COPD A. Continued tobacco use, >100 pack years 5. GERD 6. Diabetes mellitus type 2, treated for about 12 years 7. History of coronary artery disease with four-vessel CABG, 2009, and patient relates history of 5 coronary stents placed. A. LHC, 06/06/2021, performed due to TID without ischemia noted on stress test 05/2021 ANGIOGRAPHIC RESULTS The left main artery Normal The left anterior descending artery Ostially occluded The circumflex artery Is dominant with an ostial proximal 50% stenosis. Large first obtuse marginal artery has competitive flow from the vein graft. The second obtuse marginal artery is 1.5 mm in diameter and has diffuse 30% stenoses The right coronary artery Is a nondominant yet still large vessel problem possibly even codominant. The vessel has proximal and mid vessel 30 to 40% stenoses. The distal branches are 2-1/2 to 3 mm in diameter and appear to be the posterior descending artery and posterior lateral branch both of which are widely patent with 20 to 30% diffuse stenoses The SANDERS ventriculogram reveals Normal 60% The left ventricular end-diastolic pressure 10 mmHg The proximal HENRY graft is widely patent. It then bifurcates and supplies the first diagonal artery with wide patency. The HENRY graft itself anastomoses to the mid LAD and is widely patent. The LAD is a large vessel widely patent with mild diffuse disease Saphenous vein graft to large first obtuse marginal arteries widely patent IMPRESSION Adequate three-vessel coronary bypass grafting as described above Normal ejection fraction Normal left ventricular NaSal pressure PLAN 1. Medical management Electronically signed by : Darell Chavez MD 06/06/2021 10:38:38 History of present illness: 76-year-old male with history of atrial fibrillation, COPD, diabetes presented to the emergency department with increasing shortness of breath over the last day. Patient reports yesterday morning when ambulating at home he felt like he was about to pass out from being so lightheaded. As the day progressed he noticed progressive dyspnea on exertion with cough and scant sputum production. He denies fevers or chills at home. As he continued to feel worse throughout the day he ultimately sought treatment at the emergency department. Work-up in the emergency department has revealed rales and expiratory wheezes on lung exam with bibasilar airspace disease on imaging and EKG showing bradycardia with idioventricular rhythm. Patient takes beta-blockers, calcium channel blockers, digoxin for his atrial fibrillation. The ER physician contacted Dr. Chavez who recommended holding all medicines. External pacer has been placed in the event it is needed. Patient has remained stable in the emergency department and gives all of the history. He denies chest pain, headache, palpitations. The above per Dr. Claire Pt confirms above account. Since admission and holding home meds, rate has improved but now having intermittent RVR (chronic A. fib) despite adding back low dose metoprolol. In the last 6 months, addition of cardizem and digoxin were made due to RVR. Now patient is exhibiting sick sinus syndrome/Tachybrady syndrome for which pacemaker is recommended. Pt relates that almost all of his siblings have pacemakers and he thinks he needs one. Risks, benefits and procedure explained to patient and he agrees to proceed. [facility] History Medical History
[2021-11-17 08:32] LABS: POC Glucose,Bedside 450 (70-110)
[2021-11-17 13:23] LABS: POC Glucose,Bedside 375 (70-110)
--- NOTE | 2021-11-17 15:21 | XR_ITS ---
FINAL REPORT CLINICAL HISTORY: pacemaker placement FINDINGS: There has been median sternotomy. There is a left subclavian pacemaker. The heart size is normal. The mediastinum is normal. There is pulmonary vascular congestion. There are bilateral pulmonary opacities likely representing edema. There is a small left pleural effusion. There is no pneumothorax. There is no osseous abnormality. IMPRESSION: Pulmonary vascular congestion with bilateral pulmonary opacities likely representing edema. Small left pleural effusion. Reviewed, Interpreted and Dictated by Nash Cedillo III, MD Transcribed by Doulgas Briseno Authenticated by Nash Cedillo III, MD on 11/17/2021 04:05:33 PM [facility]
--- NOTE | 2021-11-17 16:04 | PC.NURSE ---
pt has returned to the floor post pacemaker placement. site is tender, no drainage
[2021-11-17 16:35] LABS: Creatine Kinase 169 U/L (55-170)
[2021-11-17 16:48] LABS: POC Glucose,Bedside 281 (70-110)
[2021-11-17 16:49] LABS: CKMB Relative Index 1.6 U/L (0-4.0); Creatine Kinase MB 2.7 ng/ml (0.0-2.03)
[2021-11-17 16:50] LABS: Troponin I 0.01 ng/ml (0.00-0.034)
[2021-11-18] VITALS (7 sets, daily range): BP systolic 110–130; BP diastolic 53–65; PULSE 66–73; RESP 16–21; TEMP 36.5–36.7; O2SAT 90–98; BMI 31.4
[2021-11-18 05:46] LABS: POC Glucose,Bedside 292 (70-110)
[2021-11-18 06:55] LABS: Basophils % 0.1 % (0.1-2.0); Eosinophils % 0.1 % (0.1-12.0); Hematocrit 34.4 % (42.0-52.0); Hemoglobin 10.9 g/dL (14.1-18.0); Lymphocytes # 0.8 K/mm3 (0.7-4.5); Lymphocytes % 7.8 % (10-50); Mean Corpuscular HGB Conc 31.7 g/dL (31.8-35.4); Mean Corpuscular Hemoglobin 29.1 pg (27.0-31.2); Mean Corpuscular Volume 91.8 fl (80-94); Mean Platelet Volume 8.9 fl (7.4-10.4); Monocytes # 0.6 K/mm3 (0.1-1.0); Monocytes % 6.1 % (1.7-9.3); Neutrophils # 8.4 K/mm3 (1.8-7.8); Platelet Count 184 K/mm3 (142-424); Red Blood Count 3.74 M/mm3 (4.60-6.20); Red Cell Distribution Width 17.1 % (11.5-17.5); White Blood Count 9.8 K/mm3 (4.8-10.8)
[2021-11-18 06:57] LABS: Anion Gap 10.3 mEq/L (5-15); Blood Urea Nitrogen 39 mg/dl (9-20); Calcium 8.3 mg/dl (8.4-10.2); Carbon Dioxide 32 mmol/L (22.0-30.0); Chloride 97 mmol/L (98-107); Creatinine Clearance Estimated 97 mL/min (50-200); Estimated Glomerular Filt Rate 94 ml/min (>60); GFR (African American) 114 ML/MIN (>60); Glucose 263 mg/dl (74-100); Potassium 4.3 mmoL/L (3.5-5.1); Sodium 135 mmol/L (136-145)
--- NOTE | 2021-11-18 06:58 | XR_ITS ---
FINAL REPORT CLINICAL HISTORY: shortness of breath, pneumonia progress FINDINGS: TWO VIEWS OF THE CHEST The heart is normal in size. The patient is status post median sternotomy. There is a left subclavian pacer. There is pulmonary vascular congestion. Note is made of pulmonary opacities, may represent edema or pneumonia. There are small bilateral pleural effusions, left greater than right. There is no pneumothorax. IMPRESSION: Pulmonary opacities, may represent edema versus pneumonia with bilateral pleural effusions. Reviewed, Interpreted and Dictated by Nash Cedillo III, MD Transcribed by Masha Finley Authenticated by Nash Cedillo III, MD on 11/18/2021 11:30:17 AM [facility]
[2021-11-18 06:59] LABS: Magnesium 1.7 mg/dl (1.6-2.3)
--- NOTE | 2021-11-18 07:00 | HMH.ACPN2 ---
Internal Medicine - PN: Subj *Date: 11/18/21 *Time: 07:00 Interval history: Patient underwent successful pacemaker implantation yesterday. He continues to feel short of breath both at rest and when ambulating out of bed. Cough persists Exam Vital signs and Labs for Last 24 Hours: Temp Pulse Resp BP Pulse Ox 98.0 F 70 16 110/60 96 11/18/21 00:00 11/18/21 04:00 11/18/21 00:00 11/18/21 00:00 11/18/21 06:02 Laboratory Results - last 24 hr 11/17/21 08:11: POC Glucose 450 H* 11/17/21 11:28: POC Glucose 375 H* 11/17/21 16:20: Total Creatine Kinase 169, CK-MB (CK-2) 2.7 H, CK-MB (CK-2) Rel Index 1.6, Troponin I 0.01 11/17/21 16:34: POC Glucose 281 H 11/18/21 05:23: POC Glucose 292 H I & O for Last 24 hours: Intake & Output 11/15/21 11/16/21 11/17/21 11/18/21 11:59 11:59 11:59 11:59 Intake Total 1230 / 1230 1390 / 1390 2160 / 2160 Output Total 900 / 900 3500 / 3500 Balance 330 / 330 -2110 / -2110 2160 / 2160 Weight 233 lb 233 lb 15.978 oz 237 lb 236 lb 15.951 oz Microbiology Reports for the Last 24 Hours: Microbiology 11/15/21 23:23 Sputum - Expectorated Sputum Gram Stain - Final 11/15/21 23:23 Sputum - Expectorated Sputum Sputum Culture - Preliminary Narrative: Patient looks comfortable. Nasal cannula is in place. Lung exam have diffuse rhonchi both anteriorly and posteriorly along with expiratory wheezes and diminished breath sounds at the bases. Heart has a regular rate. Abdomen is obese and soft. Extremities are warm to the touch Assessment and Plan (1) Community acquired pneumonia Status: Acute Qualifiers: Laterality: right Lung location: lower lobe of lung Qualified Code(s): J18.9 - Pneumonia, unspecified organism Category: Medical Code(s): J18.9 - Pneumonia, unspecified organism (2) Congestive heart failure Status: Acute Qualifiers: Heart failure type: unspecified Heart failure chronicity: acute Qualified Code(s): I50.9 - Heart failure, unspecified Category: Medical Code(s): I50.9 - Heart failure, unspecified (3) Atrial fibrillation with controlled ventricular rate Status: Acute Category: Medical Code(s): I48.91 - Unspecified atrial fibrillation (4) Symptomatic bradycardia Status: Resolved Category: Medical Code(s): R00.1 - Bradycardia, unspecified (5) Idioventricular rhythm Status: Resolved Category: Medical Code(s): I44.2 - Atrioventricular block, complete (6) Acute exacerbation of chronic obstructive airways disease Status: Acute Category: Medical Code(s): J44.1 - Chronic obstructive pulmonary disease with (acute) exacerbation (7) Hypomagnesemia Status: Acute Category: Medical Code(s): E83.42 - Hypomagnesemia (8) Abnormal electrocardiography Status: Acute Category: Medical Code(s): R94.31 - Abnormal electrocardiogram [ECG] [EKG] (9) Sick sinus syndrome Status: Acute Category: Medical Code(s): I49.5 - Sick sinus syndrome - Assessment and plan all Dx Assessment and Plan for all problems:: 1. Repeat chest x-ray today due to change in exam over the last 24 hours 2. Continue steroids, antibiotics, aerosols for pneumonia and COPD exacerbation 3. Room air sats will be checked today. At baseline patient uses oxygen at night only 4. Defer to cardiology for adjustment of any rate control meds
[2021-11-18 07:31] LABS: MANUAL DIFFERENTIAL MANUAL DIFFERENTIAL (MANUAL DIFF)
--- NOTE | 2021-11-18 08:06 | P.PN_ITS ---
Subjective Date: 11/18/21 Time: 08:07 Principal diagnosis: SSS, Pneumonia Interval history: 76 yo WM at bedside eating breakfast in NAD. States he had a rough night with coughing. Sore at pacer site. Dr. Claire has ordered CXR due to worsening lung sounds. Telemetry shows paced rhythm in the 70's. Exam Vital signs and Labs for Last 24 Hours: Temp Pulse Resp BP Pulse Ox 98.0 F 70 16 110/60 96 11/18/21 00:00 11/18/21 04:00 11/18/21 00:00 11/18/21 00:00 11/18/21 06:02 Laboratory Results - last 24 hr 11/17/21 08:11: POC Glucose 450 H* 11/17/21 11:28: POC Glucose 375 H* 11/17/21 16:20: Total Creatine Kinase 169, CK-MB (CK-2) 2.7 H, CK-MB (CK-2) Rel Index 1.6, Troponin I 0.01 11/17/21 16:34: POC Glucose 281 H 11/18/21 05:23: POC Glucose 292 H 11/18/21 05:59: WBC 9.8, RBC 3.74 L, Hgb 10.9 L, Hct 34.4 L, MCV 91.8, MCH 29.1, MCHC 31.7 L, RDW 17.1, Plt Count 184, MPV 8.9, Neut % (Auto) 86.0 H, Lymph % (Auto) 7.8 L, [place] % (Auto) 6.1, Eos % (Auto) 0.1, Baso % (Auto) 0.1, Neut # (Auto) 8.4 H, Lymph # (Auto) 0.8, [place] # (Auto) 0.6, Eos # (Auto) 0.0, Baso # (Auto) 0.0 11/18/21 05:59: Sodium 135 L, Potassium 4.3, Chloride 97 L, Carbon Dioxide 32 H, Anion Gap 10.3, BUN 39 H, Creatinine 0.80, Estimated Creat Clear 97, Estimated GFR 94, Est GFR ( Amer) 114, Glucose 263 H, Calcium 8.3 L 11/18/21 05:59: Magnesium 1.7 D I & O for Last 24 hours: Intake & Output 11/15/21 11/16/21 11/17/21 11/18/21 11:59 11:59 11:59 11:59 Intake Total 1230 / 1230 1390 / 1390 2160 / 2160 Output Total 900 / 900 3500 / 3500 Balance 330 / 330 -2110 / -2110 2160 / 2160 Weight 233 lb 233 lb 15.978 oz 237 lb 236 lb 15.951 oz Microbiology Reports for the Last 24 Hours: Microbiology 11/15/21 23:23 Sputum - Expectorated Sputum Gram Stain - Final 11/15/21 23:23 Sputum - Expectorated Sputum Sputum Culture - Preliminary - Constitutional no acute distress - *Routine Respiratory Exam Present: rhonchi, diminished air movement - *Routine Cardiovascular Exam Present: RRR - *Routine Neurological Exam Present: alert, oriented X3 Progress Note: A&P (1) Community acquired pneumonia Status: Acute (2) Congestive heart failure Status: Acute (3) Atrial fibrillation with controlled ventricular rate Status: Acute (4) Symptomatic bradycardia Status: Resolved (5) Idioventricular rhythm Status: Resolved (6) Acute exacerbation of chronic obstructive airways disease Status: Acute (7) Hypomagnesemia Status: Acute (8) Abnormal electrocardiography Status: Acute (9) Sick sinus syndrome Status: Acute Assessment and Plan for All Diagnoses:: 1. SSS, symptomatic. S/p Pacer insertion. OK to resume anticoagulation. Continue Metoprolol but will switch to succinate 25 mg daily and monitor Vitals. 2. COPD 3. Bilateral airspace disease by chest x-ray, treatment per Dr. Claire 4. Elevated BNP, on IV lasix with increasing BUN. Await CXR today. 5. Diabetes mellitus type 2 6. Continued tobacco use, smoking cessation recommended 7. Mild anemia, stable 8. Hypomagnesemia, resolved. 9. Hyperkalemia, resolved 10. CAD with history of CABG, clinically stable with recent cardiac catheterization last year. Continue aspirin, statin, ARB, beta-umer and spironolactone.
[2021-11-18 08:21] LABS: Lymphocytes % 11 % (10-50); Monocytes % 2 % (2-9); Neutrophils % 87 % (42-76); Platelet Estimate Normal; Total Cells Counted 100
[2021-11-18 08:22] LABS: Rouleaux 1+
[2021-11-18 10:34] LABS: NT Pro Brain Natriuretic Pep. 4700 pg/mL (0-450)
[2021-11-18 11:49] LABS: POC Glucose,Bedside 316 (70-110)
[2021-11-18 12:08] LABS: POC Glucose,Bedside 549 (70-110)
[2021-11-18 16:42] LABS: POC Glucose,Bedside 245 (70-110)
--- NOTE | 2021-11-18 18:15 | PC.NURSE ---
Pt has done fine this shift. Pt has remained on RA w/ o2 sats 93% and above. Pt required 30units of humalog at lunch d/t FSBS of 549 per MD Claire. IS used hourly while awake. IS @ best 1750cc's. No other acute changes or complaints, will continue to monitor.
[2021-11-19] VITALS: BP 129/55; PULSE 70; RESP 18; TEMP 36.6; O2SAT 90
[2021-11-19 00:21] LABS: POC Glucose,Bedside 367 (70-110)
[2021-11-19 04:00] VITALS: PULSE 70
--- NOTE | 2021-11-19 04:50 | PC.NURSE ---
pt has rested intermittenly t/o shift, has remained on room air and O2 sats have been 90-93%, no complaints of pain or SOA
[2021-11-19 05:00] VITALS: BMI 32.1
[2021-11-19 05:48] LABS: POC Glucose,Bedside 336 (70-110)
[2021-11-19 05:53] VITALS: O2SAT 91
[2021-11-19 07:20] LABS: Anion Gap 11.5 mEq/L (5-15); Blood Urea Nitrogen 42 mg/dl (9-20); Calcium 8.9 mg/dl (8.4-10.2); Carbon Dioxide 33 mmol/L (22.0-30.0); Chloride 96 mmol/L (98-107); Creatinine Clearance Estimated 97 mL/min (50-200); Estimated Glomerular Filt Rate 82 ml/min (>60); GFR (African American) 100 ML/MIN (>60); Glucose 305 mg/dl (74-100); Potassium 4.5 mmoL/L (3.5-5.1); Sodium 136 mmol/L (136-145)
[2021-11-19 08:00] VITALS: PULSE 70
[2021-11-19 08:17] VITALS: BP 143/68; PULSE 70; RESP 18
[2021-11-19 08:19] VITALS: TEMP 36.4; O2SAT 93
[2021-11-19 08:30] LABS: Basophils % 0.3 % (0.1-2.0); Hematocrit 36.7 % (42.0-52.0); Hemoglobin 11.8 g/dL (14.1-18.0); Lymphocytes % 9.2 % (10-50); Mean Corpuscular Volume 90.5 fl (80-94); Mean Platelet Volume 9.1 fl (7.4-10.4); Monocytes # 0.5 K/mm3 (0.1-1.0); Monocytes % 4.2 % (1.7-9.3); Neutrophils # 9.2 K/mm3 (1.8-7.8); Neutrophils % 86.2 % (37.0-80.0); Platelet Count 223 K/mm3 (142-424); Red Blood Count 4.06 M/mm3 (4.60-6.20); Red Cell Distribution Width 16.7 % (11.5-17.5); White Blood Count 10.7 K/mm3 (4.8-10.8)
[2021-11-19 08:35] LABS: MANUAL DIFFERENTIAL MANUAL DIFFERENTIAL (MANUAL DIFF)
--- NOTE | 2021-11-19 08:43 | HMH.PNCARD ---
Subjective Date: 11/19/21 Time: 08:43 Principal diagnosis: SSS, Pneumonia Interval history: 76-year-old white male sitting at bedside eating breakfast in no acute distress. States that his shortness of breath has improved. His exertional shortness of breath is improving. Reviewed limitations regarding pacemaker for the next 6 weeks. Exam Vital signs and Labs for Last 24 Hours: Temp Pulse Resp BP Pulse Ox 97.6 F 70 18 143/68 H 93 L 11/19/21 08:19 11/19/21 08:17 11/19/21 08:17 11/19/21 08:17 11/19/21 08:19 Laboratory Results - last 24 hr 11/17/21 19:52: POC Glucose 316 H* 11/18/21 05:59: NT-Pro-B Natriuret Pep 4700 H 11/18/21 11:31: POC Glucose 549 H* 11/18/21 16:26: POC Glucose 245 H 11/18/21 21:42: POC Glucose 367 H* 11/19/21 05:27: POC Glucose 336 H* 11/19/21 06:24: WBC 10.7, RBC 4.06 L, Hgb 11.8 L, Hct 36.7 L, MCV 90.5, MCH 29.0, MCHC 32.0, RDW 16.7, Plt Count 223, MPV 9.1, Neut % (Auto) 86.2 H, Lymph % (Auto) 9.2 L, Mccormick % (Auto) 4.2, Eos % (Auto) 0.0 L, Baso % (Auto) 0.3, Neut # (Auto) 9.2 H, Lymph # (Auto) 1.0, [place] # (Auto) 0.5, Eos # (Auto) 0.0, Baso # (Auto) 0.0 11/19/21 06:24: Sodium 136, Potassium 4.5, Chloride 96 L, Carbon Dioxide 33 H, Anion Gap 11.5, BUN 42 H, Creatinine 0.90, Estimated Creat Clear 97, Estimated GFR 82, Est GFR ( Amer) 100, Glucose 305 H, Calcium 8.9 I & O for Last 24 hours: Intake & Output 11/16/21 11/17/21 11/18/21 11/19/21 11:59 11:59 11:59 11:59 Intake Total 1230 / 1230 1390 / 1390 2520 / 2520 1250 / 1250 Output Total 900 / 900 3500 / 3500 4655 / 4655 Balance 330 / 330 -2110 / -2110 2520 / 1520 -3405 / -3405 Weight 233 lb 15.978 oz 237 lb 236 lb 15.951 oz 242 lb 8.136 oz Microbiology Reports for the Last 24 Hours: Microbiology 11/15/21 23:23 Sputum - Expectorated Sputum Gram Stain - Final 11/15/21 23:23 Sputum - Expectorated Sputum Sputum Culture - Preliminary Gram Negative Rods - Constitutional no acute distress - *Routine Respiratory Exam Present: CTA bilaterally - *Routine Cardiovascular Exam Present: RRR Progress Note: A&P (1) Community acquired pneumonia Status: Acute (2) Congestive heart failure Status: Acute (3) Atrial fibrillation with controlled ventricular rate Status: Acute (4) Symptomatic bradycardia Status: Resolved (5) Idioventricular rhythm Status: Resolved (6) Acute exacerbation of chronic obstructive airways disease Status: Acute (7) Hypomagnesemia Status: Acute (8) Abnormal electrocardiography Status: Acute (9) Sick sinus syndrome Status: Acute Assessment and Plan for All Diagnoses:: Okay for discharge home from cardiology standpoint Home medication recommendations: Apixaban 5 mg twice daily Aspirin 81 mg daily Atorvastatin 40 mg daily Furosemide 40 mg daily Spironolactone 25 mg daily Metoprolol succinate 25 mg daily Losartan 50 mg daily Follow-up in our office next week
[2021-11-19 10:03] LABS: Lymphocytes % 14 % (10-50); Monocytes % 1 % (2-9); Neutrophils % 85 % (42-76); Platelet Estimate Normal; Total Cells Counted 100
[2021-11-19 10:04] LABS: Poikilocytosis 1+
--- NOTE | 2021-11-19 12:04 | HMH.DCSUM ---
General - General Admission date:: 11/15/21 Discharge date: 11/19/21 HPI HPI: 76-year-old male with history of atrial fibrillation, COPD, diabetes presented to the emergency department with increasing shortness of breath over the last day. Patient reports yesterday morning when ambulating at home he felt like he was about to pass out from being so lightheaded. As the day progressed he noticed progressive dyspnea on exertion with cough and scant sputum production. He denies fevers or chills at home. As he continued to feel worse throughout the day he ultimately sought treatment at the emergency department. Work-up in the emergency department has revealed rales and expiratory wheezes on lung exam with bibasilar airspace disease on imaging and EKG showing bradycardia with idioventricular rhythm. Patient takes beta-blockers, calcium channel blockers, digoxin for his atrial fibrillation. The ER physician contacted Dr. Chavez who recommended holding all medicines. External pacer has been placed in the event it is needed. Patient has remained stable in the emergency department and gives all of the history. He denies chest pain, headache, palpitations. Hospital Course Hospital Course: Patient was admitted for symptomatic bradyardia/tachy-teagan syndrome, and pneumonia. Rate control meds were held and heart rate improved. Cardiology was consulted. Patient underwent pacemaker implantation on 11/17/2021. Post procedure was restarted on Metoprolol Succinate 25 mg. Will f/u with Cardiology in 1 week. Patient was started on Solu-medrol, rocephin, and azithromycin for COPD exacerbation and pneumonia. Patient had increased oxygen requirement above baseline that did not improve until patient was diuresed. Sputum culture was growing a gram neg. niurka. Patient was weaned to room air after diuresis. He was discharged on prednisone and levaquin for pneumonia and copd exacerbation. Patient had acute diastolic chf from his profound bradycardia. Patient had excellent response to IV lasix and at discharge po lasix will be increased to 40mg daily Objective Vital signs: Temp Pulse Resp BP Pulse Ox 97.6 F 70 18 143/68 H 93 L 11/19/21 08:19 11/19/21 08:17 11/19/21 08:17 11/19/21 08:17 11/19/21 08:19 no acute distress - *Routine HEENT Exam Head: Present: normocephalic Eye: Present: EOMI, PERRL ENT: Present: mucous membranes moist - *Routine Neck Exam Present: supple - *Routine Respiratory Exam Present: wheezes (minimal in left base), distant breath sounds - *Routine Cardiovascular Exam Present: RRR - *Routine Abdominal Exam Present: soft, normoactive bowel sounds. Absent: tenderness - *Routine Extremities Exam Absent: cyanosis, clubbing, edema - *Routine Skin Exam Present: warm. Absent: rash - Detailed Eye Exam Eyelids: Bilateral normal inspection Results Labs on day of discharge: Labs from last 24 hours 11/19/21 11/19/21 11/19/21 06:24 06:24 05:27 WBC 10.7 RBC 4.06 L Hgb 11.8 L Hct 36.7 L MCV 90.5 MCH 29.0 MCHC 32.0 RDW 16.7 Plt Count 223 MPV 9.1 Neut % (Auto) 86.2 H Lymph % (Auto) 9.2 L Keith % (Auto) 4.2 Eos % (Auto) 0.0 L Baso % (Auto) 0.3 Neut # (Auto) 9.2 H Lymph # (Auto) 1.0 Keith # (Auto) 0.5 Eos # (Auto) 0.0 Baso # (Auto) 0.0 Total Counted 100 Neutrophils % (Manual) 85 H Lymphocytes % (Manual) 14 Monocytes % (Manual) 1 L Platelet Estimate Normal Poikilocytosis 1+ Sodium 136 Potassium 4.5 Chloride 96 L Carbon Dioxide 33 H Anion Gap 11.5 BUN 42 H Creatinine 0.90 Estimated Creat Clear 97 Estimated GFR 82 Est GFR ( Amer) 100 Glucose 305 H POC Glucose 336 H* Calcium 8.9 11/18/21 11/18/21 11/18/21 21:42 16:26 11:31 WBC RBC Hgb Hct MCV MCH MCHC RDW Plt Count MPV Neut % (Auto) Lymph % (Auto) Keith % (Auto) Eos
== END 2021-11-19 09:15 | disposition home or self-care (01) | DRG 242 ==
LOC: ER 05:29 → 2ND 11:38
PROVIDERS: Internal Medicine; Physician Assistant; Admitting Provider Family Medicine; Emergency Provider Student in an Organized Health Care Education/Training Program; PCP Family Medicine; Visit Provider Family Medicine
PROC: 0JH606Z Insertion of Pacemaker, Dual Chamber into Chest Subcutaneous Tissue and Fascia, Open Approach (ICD-10-PCS; principal; 2021-11-17 14:00)
DX: I49.5 Sick sinus syndrome (principal); J18.9 Pneumonia, unspecified organism; I50.31 Acute diastolic (congestive) heart failure; J44.0 Chronic obstructive pulmonary disease with (acute) lower respiratory infection; I48.20 Chronic atrial fibrillation, unspecified; J44.1 Chronic obstructive pulmonary disease with (acute) exacerbation; I11.0 Hypertensive heart disease with heart failure; E11.9 Type 2 diabetes mellitus without complications; K21.9 Gastro-esophageal reflux disease without esophagitis; Z99.81 Dependence on supplemental oxygen; E78.5 Hyperlipidemia, unspecified; I25.2 Old myocardial infarction; Z95.1 Presence of aortocoronary bypass graft; Z95.5 Presence of coronary angioplasty implant and graft; E83.42 Hypomagnesemia; M19.90 Unspecified osteoarthritis, unspecified site; Z87.891 Personal history of nicotine dependence; Z79.02 Long term (current) use of antithrombotics/antiplatelets; Z20.822 Contact with and (suspected) exposure to COVID-19
CPT/HCPCS: 33208; 36415; 71045; 71046; 80048; 80053; 80162; 82550; 82553; 82962; 83735; 83880; 84100; 84484; 85007; 85025; 87070; 87077; 87205; 93005; 94640; 94761; 96365; 96367; 99284; C1785; C1898; C9803; J0456; J0696; U0003; U0005

== ENCOUNTER → 2021-12-16 12:38 | Outpatient (CLI) | payer MEDICARE, OTHER, SELFPAY ==
--- NOTE | 2021-12-16 12:43 | US_ITS ---
FINAL REPORT CLINICAL HISTORY: Cold extremities HTN, DM, HLD, CAD FINDINGS: Ankle brachial indices were obtained bilaterally. The JOSE EDUARDO on the right is 1.1 which is normal. The JOSE EDUARDO on the left is 1.0 which is normal. IMPRESSION: Normal ABIs bilaterally. Reviewed, Interpreted and Dictated by Nash Cedillo III, MD Transcribed by Masha Finley Authenticated by Nash Cedillo III, MD on 12/16/2021 03:11:11 PM [facility]
== END ==
PROVIDERS: PCP Family Medicine; Visit Provider Podiatrist
DX: R09.89 Other specified symptoms and signs involving the circulatory and respiratory systems (principal)
CPT/HCPCS: 93923

== ENCOUNTER → 2022-04-27 14:56 | Outpatient (CLI) | payer MEDICARE, OTHER, SELFPAY ==
--- NOTE | 2022-04-27 14:57 | CT_ITS ---
FINAL REPORT TECHNIQUE: Axial images were obtained from the lung apex to the mid abdomen by computed tomography. Coronal reformatted images were obtained. This study was performed with techniques to keep radiation doses as low as reasonably achievable, (ALARA). Individualized dose reduction techniques using automated exposure control or adjustment of mA and/or kV according to the patient''s size were employed. CLINICAL HISTORY: 6-month follow-up CT chest COMPARISON: April 23, 2021 FINDINGS: There is no axillary adenopathy. There is no hilar adenopathy. There are multiple mildly enlarged mediastinal lymph nodes, stable. Heart size is normal. There are postoperative changes from median sternotomy. There is no pericardial or pleural effusion. Limited images of the upper abdomen demonstrate a partially imaged left adrenal mass which is probably stable. On the lung window images there are mild changes of emphysema and moderate pulmonary scarring. There is a stable 6 mm nodule in the lateral left upper lobe on image 39. There is a lateral right middle lobe nodule measuring 5 mm and previously measured 5 mm. There is a lateral right upper lobe nodule measuring 3 mm and previously measured 3 mm. There several calcified granulomas. No new mass or nodule is identified. Soft tissue in the posterior lung bases is favored to represent scarring, stable. There is mild left pleural thickening. IMPRESSION: Stable small nodules, recommend additional follow-up CT in 12 months. Areas of moderate scarring and pleural thickening, stable. Stable, mildly enlarged mediastinal nodes nonspecific favor reactive. Reviewed, Interpreted and Dictated by Nash Cedillo III, MD Transcribed by Keeley Case Authenticated and . [facility]
== END ==
PROVIDERS: PCP Nurse Practitioner Family; Visit Provider Internal Medicine Pulmonary Disease
DX: R91.8 Other nonspecific abnormal finding of lung field (principal)
CPT/HCPCS: 71250

== ENCOUNTER → 2022-09-23 10:26 | Outpatient (CLI) | payer MEDICARE, OTHER, SELFPAY ==
--- NOTE | 2022-09-23 10:33 | XR_ITS ---
FINAL REPORT CLINICAL HISTORY: LOW BACK PAIN FINDINGS: LUMBAR SPINE 5 views of the lumbar spine were obtained. There is no evidence of fracture or dislocation. The vertebral alignment is normal. There are moderate degenerative changes with multilevel osteophytes. There are vascular calcifications. IMPRESSION: Moderate degenerative change with no acute bony abnormality. Reviewed, Interpreted and Dictated by Nash Cedillo III, MD Transcribed by Keeley Case Authenticated and [facility]
== END ==
PROVIDERS: PCP Nurse Practitioner Family; Visit Provider Family Medicine
DX: M54.50 Low back pain, unspecified (principal)
CPT/HCPCS: 72110

== ENCOUNTER → 2023-06-14 08:20 | Outpatient (CLI) | payer MEDICARE, OTHER, SELFPAY ==
[2023-06-14 09:38] LABS: Anion Gap 12.4 mEq/L (5-15); Blood Urea Nitrogen 15 mg/dl (9-20); Calcium 8.8 mg/dl (8.4-10.2); Carbon Dioxide 30 mmol/L (22.0-30.0); Chloride 100 mmol/L (98-107); Estimated Glomerular Filt Rate 94 ml/min (>60); GFR (African American) 114 ML/MIN (>60); Glucose 103 mg/dl (74-100); Potassium 4.4 mmoL/L (3.5-5.1); Sodium 138 mmol/L (136-145)
== END ==
PROVIDERS: PCP Family Medicine; Visit Provider Nurse Practitioner
DX: E11.9 Type 2 diabetes mellitus without complications (principal); E78.5 Hyperlipidemia, unspecified; I10 Essential (primary) hypertension; R42 Dizziness and giddiness; Z79.84 Long term (current) use of oral hypoglycemic drugs
CPT/HCPCS: 36415; 80048

== ENCOUNTER → 2023-08-18 14:48 | Outpatient (CLI) | payer MEDICARE, OTHER, SELFPAY ==
--- NOTE | 2023-08-18 14:54 | CA_ITS ---
APPROVED REPORT EXAM: Comprehensive 2D, Doppler, and color-flow Echocardiogram Office Services Coordinator: Anne Mays CRT Ht: 6 ft 1 in Wt: 162lbs BSA: 1.97 BP: 110/53 mmHg Indications: Congestive Heart Failure, Shortness of Breath, Atrial Fibrillation, CAD, Pacer, High RV pacing %, CABG 2D Dimensions LVOT 1.85 cm (M/F) 1.5-2.5 LA Volume 36.60 mL LA Volume Index 18.10 mL/m2 (M/F) 16-34 M-Mode Dimensions RVDd 2.86 cm (0.9-2.6) LA Diam 4.84 cm (1.9-4.0) LVDd 5.35 cm (3.5-5.7) Ao Diam 4.02 cm (2.0-3.7) LVDs 3.78 cm (3.5-5.7) IVSd 1.85 cm (0.6-1.1) PWd 0.60 cm (0.6-1.1) EF (Teich) 55.70% FS 29.30% EDV (Teich) 138.30 mL TAPSE 1.14 (<1.7) ESV (Teich) 61.20 mL LV Diastology E Decel Time 183.00 (160-240 msec) E/A Ratio 5.23 MED E' 6.80 (< 7 cm/sec) MED A' 2.50 cm/s E'/MED E' Ratio 14.29 (>14) LAT E' 7.20 (<10 cm/sec) LAT A' 4.70 cm/s E/LAT E' Ratio 13.50 (>14) Aortic Valve AO Peak GR. 9.50 mmHg Mitral Valve MV E Max [place]. 97.00 (40-130 cm/s) MV A Velocity 19.00 (40-130 cm/s) E/A Ratio 5.23 MV Decel. Time 183.00 (160-240 ms) MV PHT 54.00 ms Pulmonary Valve PV Peak Velocity 79.00 (50-150 cm/s) Tricuspid Valve TR P. Velocity 226.00 cm/s RAP Estimate 10.00 mmHg RVSP 30.40 mmHg Left Ventricle The left ventricle is normal size. The left ventricular systolic function is normal. The left ventricular ejection fraction is within the normal range. There is normal left ventricular wall thickness. There is normal LV segmental wall motion. Diastolic function is indeterminate. LVEF is 55%. Right Ventricle The right ventricle is normal size. The right ventricular systolic function is normal. Atria Left atrium is mildly dilated. The right atrium size is normal. There is no Doppler evidence of interatrial shunt. Aortic Valve The aortic valve is mildly thickened. There is no aortic valvular stenosis. No aortic regurgitation is present. Mitral Valve The mitral valve is normal in structure. Trace mitral regurgitation. Tricuspid Valve The tricuspid valve leaflets are thin and pliable. Trace tricuspid regurgitation. There is insufficient TR jet to estimate RVSP. Pulmonic Valve The pulmonary valve is normal in structure. Trace pulmonic regurgitation. Great Vessels The aortic root is normal in size. The ascending aorta is not well visualized. IVC is normal in size and collapses >50% with inspiration. Pericardium There is no pericardial effusion. Other Information Study Quality: Fair Conclusion Normal biventricular systolic function. No significant valvular stenosis or regurgitation. Electronically signed by : Jennifer Joseph MD 08/21/2023 21:36:38
[2023-08-18 17:48] LABS: Basophils # 0.1 K/mm3 (0-0.2); Basophils % 0.5 % (0.1-2.0); Eosinophils # 0.2 K/mm3 (0.0-0.4); Eosinophils % 1.5 % (0.1-12.0); Hematocrit 39.8 % (42.0-52.0); Hemoglobin 13.4 g/dL (14.1-18.0); Lymphocytes # 3.2 K/mm3 (0.7-4.5); Lymphocytes % 30.1 % (10-50); Mean Corpuscular HGB Conc 33.8 g/dL (31.8-35.4); Mean Corpuscular Hemoglobin 30.7 pg (27.0-31.2); Mean Platelet Volume 8.1 fl (7.4-10.4); Monocytes # 0.6 K/mm3 (0.1-1.0); Monocytes % 5.5 % (1.7-9.3); Neutrophils # 6.6 K/mm3 (1.8-7.8); Neutrophils % 62.5 % (37.0-80.0); Platelet Count 213 K/mm3 (142-424); Red Blood Count 4.37 M/mm3 (4.60-6.20); Red Cell Distribution Width 14.4 % (11.5-17.5); White Blood Count 10.5 K/mm3 (4.8-10.8)
[2023-08-18 18:14] LABS: Alanine Aminotransferase 19 U/L (12-78); Albumin Level 3.8 g/dl (3.5-5.0); Alkaline Phosphatase 91 U/L (38-126); Anion Gap 15.7 mEq/L (5-15); Aspartate Amino Transferase 24 U/L (17-59); Bilirubin,Direct 0.2 mg/dl (0.0-0.4); Bilirubin,Total 0.2 mg/dl (0.2-1.3); Blood Urea Nitrogen 22 mg/dl (9-20); Calcium 9.2 mg/dl (8.4-10.2); Carbon Dioxide 28 mmol/L (22.0-30.0); Chloride 99 mmol/L (98-107); Chol/HDL Ratio 7.4 (1-3.5); Cholesterol 192 mg/dl (140-200); Estimated Glomerular Filt Rate 82 ml/min (>60); GFR (African American) 99 ML/MIN (>60); Glucose 96 mg/dl (74-100); HDL Cholesterol 26 mg/dl (40-60); Potassium 4.7 mmoL/L (3.5-5.1); Sodium 138 mmol/L (136-145); Triglycerides 201 mg/dl (30-150); VLDL Cholesterol 40 mg/dL (0-40)
[2023-08-18 18:25] LABS: Direct LDL Cholesterol 123.21 mg/dL (100-129)
[2023-08-18 18:28] LABS: Free T4 (Free Thyroxine) 0.91 ng/dl (0.78-2.19)
[2023-08-18 18:47] LABS: Thyroid Stimulating Hormone 1.84 uIU/mL (0.465-4.68)
== END ==
PROVIDERS: PCP Family Medicine; Visit Provider Nurse Practitioner
DX: I25.10 Atherosclerotic heart disease of native coronary artery without angina pectoris (principal); I11.0 Hypertensive heart disease with heart failure; I50.9 Heart failure, unspecified; I48.91 Unspecified atrial fibrillation; R06.00 Dyspnea, unspecified; E78.5 Hyperlipidemia, unspecified; E11.9 Type 2 diabetes mellitus without complications; J44.9 Chronic obstructive pulmonary disease, unspecified; Z95.1 Presence of aortocoronary bypass graft; Z86.73 Personal history of transient ischemic attack (TIA), and cerebral infarction without residual deficits; Z79.84 Long term (current) use of oral hypoglycemic drugs; Z72.0 Tobacco use
CPT/HCPCS: 36415; 80048; 80061; 80076; 84439; 84443; 85025; 93306

== ENCOUNTER 2023-11-24 12:18 | Emergency (ER) | payer MEDICARE, OTHER, SELFPAY ==
[2023-11-24 12:19] VITALS: BP 118/59; PULSE 75; RESP 18; TEMP 36.7; O2SAT 100; BMI 22.1
[2023-11-24 12:43] LABS: Coronavirus 19, PCR Not Detected (NotDetected); Influenza A, PCR Not Detected (NotDetected); Influenza B, PCR Not Detected (NotDetected)
[2023-11-24 12:54] LABS: Strep Scrn Group A (Rapid) Negative (Negative)
--- NOTE | 2023-11-24 13:00 | CT_ITS ---
FINAL REPORT TECHNIQUE: Thin section axial CT images with coronal reformats were obtained through the neck after the administration of IV contrast. This study was performed with techniques to keep radiation doses as low as reasonably achievable (ALARA). Individualized dose reduction techniques using automated exposure control or adjustment of mA and/or kV according to the patient''s size were employed. CLINICAL HISTORY: dysphagia, can t swallow, L neck pain, problem present for 4 days. 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 There is soft tissue in the left maxillary sinus. There is an apparent mass at the level of the left cords best seen on images 69-77 of series 3. There is narrowing of the airway. Mass appears to cross the midline posteriorly and is concerning for neoplasm. Hypervascular masses are noted in the parotid glands bilaterally measuring up to 2.0 cm on the right and 1.5 cm on the left. The thyroid is unremarkable. There are moderate changes of centrilobular emphysema in the upper lobes bilaterally. The glottis and supraglottic areas are unremarkable. No acute osseous abnormality is identified. IMPRESSION: Lobular mass at the level of the left cords highly concerning for neoplasm. ENT evaluation and laryngoscopy recommended. 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 Reviewed, Interpreted and Dictated by Chidi Dejesus MD Transcribed by Dayanna Pineda Authenticated and [facility]
--- NOTE | 2023-11-24 13:46 | HMH.ITSTN ---
Waiting on iv and labs. labs and iv pending.
[2023-11-24 14:12] LABS: Basophils % 0.3 % (0.1-2.0); Eosinophils # 0.2 K/mm3 (0.0-0.4); Eosinophils % 1.5 % (0.1-12.0); Hematocrit 38.6 % (42.0-52.0); Lymphocytes # 2.1 K/mm3 (0.7-4.5); Lymphocytes % 20.7 % (10-50); Mean Corpuscular HGB Conc 33.8 g/dL (31.8-35.4); Mean Corpuscular Hemoglobin 30.7 pg (27.0-31.2); Mean Corpuscular Volume 90.9 fl (80-94); Mean Platelet Volume 7.4 fl (7.4-10.4); Monocytes # 0.4 K/mm3 (0.1-1.0); Monocytes % 4.4 % (1.7-9.3); Neutrophils # 7.4 K/mm3 (1.8-7.8); Neutrophils % 73.1 % (37.0-80.0); Platelet Count 175 K/mm3 (142-424); Red Blood Count 4.24 M/mm3 (4.60-6.20); Red Cell Distribution Width 13.8 % (11.5-17.5); White Blood Count 10.1 K/mm3 (4.8-10.8)
[2023-11-24 14:15] LABS: Chloride 100 mmol/L (98-107); Potassium 3.8 mmoL/L (3.5-5.1); Sodium 136 mmol/L (136-145)
[2023-11-24 14:17] LABS: Blood Urea Nitrogen 14 mg/dl (9-20); Creatinine Clearance Estimated 67 mL/min (50-200); Estimated Glomerular Filt Rate 82 ml/min (>60); GFR (African American) 99 ML/MIN (>60)
[2023-11-24 14:18] LABS: Alanine Aminotransferase 17 U/L (12-78); Albumin Level 3.8 g/dl (3.5-5.0); Albumin/Globulin Ratio 1.3 (1.1-1.8); Alkaline Phosphatase 99 U/L (38-126); Anion Gap 8.8 mEq/L (5-15); Aspartate Amino Transferase 22 U/L (17-59); Bilirubin,Total 0.5 mg/dl (0.2-1.3); Calcium 8.8 mg/dl (8.4-10.2); Carbon Dioxide 31 mmol/L (22.0-30.0); Glucose 103 mg/dl (74-100); Total Protein,Serum 6.8 g/dl (6.3-8.2)
--- NOTE | 2023-11-24 14:43 | HMH.ITSTN ---
labs still pending. unable to do ct untill labs are back.
[2023-11-24] MEDS: IOPAMIDOL-370 (76%);100ML BOTTLE 75 ML IV (15:15)
--- NOTE | 2023-11-24 15:44 | HMH.EDGENADL ---
Discharge Plan Disposition Patient Disposition: Home, Self-Care Condition: Good Prescriptions Prescriptions: No Action cetirizine 10 mg tablet 10 mg PO DAILY Patient Comments: TAKE ONE TABLET BY MOUTH EVERY DAY metformin 750 mg tablet extended release 24 hr 750 mg PO DAILY Patient Comments: TAKE ONE TABLET BY MOUTH TWICE DAILY --TAKE WITH FOOD-- (DME) Accu-Chek Guide test strips Strip See Rx Instructions .ROUTE .MEDSUPPLY Qty: 10 Patient Comments: USE TO test blood sugar TWICE DAILY Rx Instructions: As directed Trelegy Ellipta 200-62.5-25 mcg blister with device 1 inh IH DAILY (DME) lancets [Accu-Chek Softclix Lancets] Misc See Rx Instructions .ROUTE .MEDSUPPLY Qty: 100 Patient Comments: USE TO test blood sugar TWICE DAILY Rx Instructions: As directed Eliquis 5 mg tablet 5 mg PO BID Patient Comments: TAKE ONE TABLET BY MOUTH TWICE DAILY albuterol sulfate [ProAir HFA] 90 mcg/actuation HFA aerosol inhaler 2 inh INHALATION ciclopirox 8 % solution 1 applic TOPICAL DAILY 90 Days Qty: 6.6 3RF Rx Instructions: Apply directed to affected toenail daily. Smooth with emery board weekly. mupirocin 2 % ointment 1 applic TOPICAL BID 30 Days Qty: 30 1RF Rx Instructions: Apply to affected area up to twice daily losartan 50 mg tablet PO cholecalciferol (vitamin D3) 50 mcg (2,000 unit) capsule PO Patient Comments: TAKE ONE CAPSULE BY MOUTH EVERY DAY furosemide [Lasix] 40 mg tablet 40 mg PO Q OTHER DAY Qty: 15 6RF digoxin 125 mcg (0.125 mg) tablet See Rx Instructions .ROUTE .COMPLEX Qty: 30 5RF Dose Instruction: TAKE ONE TABLET BY MOUTH EVERY DAY Rx Instructions: TAKE ONE TABLET BY MOUTH EVERY DAY potassium chloride 8 mEq tablet extended release See Rx Instructions .ROUTE .COMPLEX Qty: 30 5RF Dose Instruction: TAKE ONE TABLET BY MOUTH EVERY DAY Rx Instructions: TAKE ONE TABLET BY MOUTH EVERY DAY Trulicity 1.5 mg/0.5 mL pen injector 1.5 mg SQ WEEKLY 90 Days Qty: 6.5 0RF atorvastatin [Lipitor] 80 mg tablet 80 mg PO DAILY Qty: 30 5RF pantoprazole [Protonix] 40 mg tablet,delayed release (DR/EC) 40 mg PO DAILY 90 Days Qty: 90 1RF spironolactone 25 mg tablet See Rx Instructions .ROUTE .COMPLEX Qty: 90 1RF Dose Instruction: TAKE ONE TABLET BY MOUTH EVERY DAY Rx Instructions: TAKE ONE TABLET BY MOUTH EVERY DAY metoprolol succinate 100 mg tablet extended release 24 hr See Rx Instructions .ROUTE .COMPLEX Qty: 90 2RF Dose Instruction: TAKE ONE TABLET BY MOUTH EVERY DAY Rx Instructions: TAKE ONE TABLET BY MOUTH EVERY DAY aspirin 81 MG tablet,delayed release (DR/EC) 81 mg PO DAILY omeprazole 40 MG capsule,delayed release(DR/EC) 40 mg PO DAILY tamsulosin 0.4 MG capsule 0.4 mg PO DAILY Patient Comments: TAKE 1 CAPSULE BY MOUTH ONCE DAILY empagliflozin 25 mg tablet 25 mg PO DAILY Patient Comments: TAKE 1 TABLET BY MOUTH EVERY DAY Referrals Follow up/Referrals: Christa Howell MD [Primary Care Provider] - See instructions Activity Restrictions/Add. Instructions Additional Instructions/Restrictions: At this time it was felt you are safe to be discharged home. If new or worsening symptoms please do not hesitate to return the emergency department. Please follow-up with ENT associated with [facility] at the address provided to you on the posted note as discussed at 9 AM. Clinical Impressions Clinical Impression: Mass of larynx Instructions Patient Instructions: DI for Esophageal Dysphagia Discharge ED Provider: Flavio Valdes General Adult HPI <Camryn Meadows DO - Last Filed: 11/24/23 16:57> General Chief complaint: Upper Respiratory Infection Stated complaint: st left ear pain dizziness Time Seen by Provider: 11/24/23 12:45 Mode of Arrival: Ambulatory Source of Information: Patient Limitations: No Limitations Description of Symptoms (Recalled from ER Triage Doc. by RN): PT REPORTS SORE THROAT AND DIFFICULTY SWALLOWING X 3-4 DAYS. REPORTS LEFT EAR PAIN History of Present Illness HPI narrative: This patient is a 78-year-old male with a history of hypertension, hyperlipidemia, diabetes, sick sinus syndrome, atrial fibrillation, CHF, COPD, CAD status post CABG, and obesity presenting to the emergency department for evaluation with concern for dysphagia. Patient reports that he is having a hard time swallowing, which has been going on for the past 3 to 4 days. He also states that he has left side of his neck pain radiating up into his left ear. He states that initially it was just solid food that got hung up, but now he cannot even eat mashed potatoes. He denies any fevers, chills, cough, congestion, chest pain, abdominal pain, or other concerns. He denies any history of EGD or prior scope in the past. He is a smoker. Related Data Home Medications Medication Instructions Recorded Confirmed tamsulosin 0.4 mg capsule 0.4 mg PO DAILY prostate 09/04/19 09/30/23 cetirizine 10 mg tablet 10 mg PO DAILY Allergy symptoms 05/08/20 09/30/23 aspirin 81 mg tablet,delayed 81 mg PO DAILY heart health 05/08/21 09/30/23 release omeprazole 40 mg capsule,delayed 40 mg PO DAILY acid reflux 05/08/21 09/30/23 release apixaban 5 mg tablet (Eliquis) 5 mg PO BID ATRIAL FIBRILLATION 05/16/21 09/30/23 albuterol sulfate 90 mcg/actuation 2 inh inhalation 12/16/21 09/30/23 aerosol inhaler (ProAir HFA) metformin 750 mg tablet,extended 750 mg PO DAILY 01/19/22 09/30/23 release 24 hr empagliflozin 25 mg tablet 25 mg PO DAILY Diabetes 03/16/22 09/30/23 blood sugar diagnostic (Accu-Chek #10 ea 06/23/22 09/30/23 Guide test strips) fluticasone fur. 200 mcg-umeclid 1 inh inhalation DAILY 06/23/22 09/30/23 62.5 mcg-vilant 25 mcg inhalat.powder (Trelegy Ellipta) lancets (Accu-Chek Softclix #100 ea 06/23/22 09/30/23 Lancets) cholecalciferol (vitamin D3) 50 PO 09/30/23 09/30/23 mcg (2,000 unit) capsule losartan 50 mg tablet mg PO 09/30/23 09/30/23 Previous Rx's Medication Instructions Recorded ciclopirox 8 % topical solution 1 applic topical DAILY fungus 90 12/17/21 days #6.6 mL mupirocin 2 % topical ointment 1 applic topical BID cellulitis 30 12/17/21 days #30 grams furosemide 40 mg tablet (Lasix) 40 mg PO Q OTHER DAY #15 tabs 04/06/23 digoxin 125 mcg (0.125 mg) tablet See Rx Instructions .Route 06/14/23 .COMPLEX #30 tabs potassium chloride 8 mEq See Rx Instructions .Route 06/16/23 tablet,extended release .COMPLEX #30 tabs dulaglutide 1.5 mg/0.5 mL 1.5 mg (0.5 mL) SQ WEEKLY 90 days 07/30/23 subcutaneous pen injector #6.5 mL (Trulicity) atorvastatin 80 mg tablet (Lipitor) 80 mg PO DAILY #30 tabs 08/20/23 pantoprazole 40 mg tablet,delayed 40 mg PO DAILY 90 days #90 tabs 09/27/23 release (Protonix) spironolactone 25 mg tablet See Rx Instructions .Route 10/21/23 .COMPLEX #90 tabs metoprolol succinate 100 mg See Rx Instructions .Route 11/08/23 tablet,extended release 24 hr .COMPLEX #90 tabs Allergies Allergy/AdvReac Type Severity Reaction Status Date / Time Penicillins Allergy Hives Verified 09/30/23 08:54 PFSH <Camryn Meadows DO - Last Filed: 11/24/23 16:57> PFS Disclaimer: The information contained in this section may have been updated after the patient was seen, as this information can be updated by other users. Medical History Abnormal cardiovascular stress test Abnormal electrocardiography Atypical angina Bilateral leg pain CAD (coronary artery disease) Cardiac pacemaker in situ Chest pressure Diabetes mellitus Dyspnea Hyperlipidemia Hypertension PAC (premature atrial contraction) PAF (paroxysmal atrial fibrillation) Sinus bradycardia Tobacco dependence syndrome Surgical History H/O arthroscopy of right knee Hx of CABG Family History Other Diabetes Social History Smoking Status: Current every day smoker tobacco type: cigarettes packs per day: 1 second hand exposure: Yes alcohol intake: never substance use type: denies use current occupational status: retired and disabled Travel in the last 8 weeks: None household members: spouse housing: house current occupational exposures/hazards: No <Camryn Meadows DO - Last Filed: 11/24/23 16:57> ROS Obtained: Yes All systems reviewed & no additional complaints except as documented Physical Exam <Camryn Meadows DO - Last Filed: 11/24/23 16:57> General General appearance: alert and in no apparent distress Head Head exam: atraumatic and normocephalic Eye Eye exam: Present normal appearance, PERRL and EOMI ENT ENT exam: Present normal exam, normal oropharynx, mucous membranes moist and normal external ear exam Neck Neck exam: Present normal inspection, full ROM and trachea midline; Absent tenderness Chest Chest inspection: Present normal inspection and symmetric chest wall rise; Absent tenderness Respiratory Respiratory exam: Present normal lung sounds bilaterally; Absent respiratory distress, wheezes, stridor or accessory muscle use Cardiovascular Cardiovascular exam: Present regular rate and normal rhythm Abdominal Exam Abdominal exam: Present soft; Absent distention, tenderness or guarding Extremities Exam Extremities exam: Present normal inspection, full ROM and normal capillary refill; Absent tenderness or edema Back Exam Back exam: Present normal inspection and full ROM; Absent tenderness Neurological Exam Neurological exam: Present alert, oriented X3, CN II-XII intact and normal gait; Absent motor sensory deficit Psychiatric Psychiatric exam: Present normal affect and normal mood Skin Skin exam: Present warm and dry Medical Decision Making <Camryn Meadows, - Last Filed: 11/24/23 16:57> Medical Records Medical records reviewed: Yes I reviewed the patient's medical records. Edmund Inquiry Pt receiving controlled substance: No Vital Signs: 11/24/23 12:19 11/24/23 16:55 Temperature 98.0 F 98.0 F Temperature Source Oral Oral Pulse Rate 75 Pulse Rate [Radial] 75 Respiratory Rate 18 18 Blood Pressure 118/59 L Blood Pressure [Left Arm] 118/59 L Blood Pressure Mean [Left Arm] 78 Blood Pressure Source Automatic Cuff Blood Pressure Source [Left Arm] Automatic Cuff Blood Pressure Position Sitting Blood Pressure Position [Left Arm] Sitting 02 Sat by Pulse Oximetry 100 Oxygen Delivery Method Room Air Room Air Lab Data Lab results reviewed: Yes I reviewed the patient's lab results. Lab Results 11/24/23 12:35: SARS-CoV-2 (PCR) Not detected, Influenza A Untype (PCR) Not detected, Influenza Type B (PCR) Not detected, Group A Strep Rapid Negative 11/24/23 13:55: WBC 10.1, RBC 4.24 L, Hgb 13.0 L, Hct 38.6 L, MCV 90.9, MCH 30.7, MCHC 33.8, RDW 13.8, Plt Count 175, MPV 7.4, Neut % (Auto) 73.1, Lymph % (Auto) 20.7, [place] % (Auto) 4.4, Eos % (Auto) 1.5, Baso % (Auto) 0.3, Neut # (Auto) 7.4, Lymph # (Auto) 2.1, [place] # (Auto) 0.4, Eos # (Auto) 0.2, Baso # (Auto) 0.0, Sodium 136, Potassium 3.8, Chloride 100, Carbon Dioxide 31 H, Anion Gap 8.8, BUN 14, Creatinine 0.90, Estimated Creat Clear 67, Estimated GFR 82, Est GFR ( Amer) 99, Glucose 103 H, Calcium 8.8, Total Bilirubin 0.5, AST 22, ALT 17, Alkaline Phosphatase 99, Total Protein 6.8, Albumin 3.8, Globulin 3.0, Albumin/Globulin Ratio 1.3 11/24/23 13:55 11/24/23 13:55 Orders (Tests/Meds): ED MEDICATIONS Generic Name Dose Route Start Last Admin Trade Name Freq PRN Reason Stop Dose Admin Sodium Chloride 10 ml 11/24/23 14:02 Sodium Chloride 0.9% 10ml Flush Syringe IV 12/24/23 14:01 NEEDED PRN Maintain IV Site Sodium Chloride 10 ml 11/24/23 15:13 Sodium Chloride 0.9% 10ml Syr (Rad Only) IV 12/24/23 15:12 NEEDED PRN Maintain IV Site Discontinued Medications Generic Name Dose Route Start Last Admin Trade Name Freq PRN Reason Stop Dose Admin Iopamidol 75 ml 11/24/23 15:13 11/24/23 15:15 Iopamidol-370 (76%);100ml Bottle IV 11/24/23 15:14 75 ml ONCE ONE Administration ORDERS Category Date Time Status CT soft tissue neck w con Stat Cat Scan 11/24/23 13:00 Completed CMP [Comprehensive Metabolic Panel] Stat Lab 11/24/23 13:55 Completed Complete Blood Count Auto Diff Stat Lab 11/24/23 13:55 Completed Rapid PCR Covid and Flu A/B Stat Lab 11/24/23 12:35 Completed Strep Scrn Group A (Rapid) Stat Lab 11/24/23 12:35 Completed Strep Screen Confirmation Stat Micro 11/24/23 12:35 Received Medical Decision Narrative: In summary, this patient is a 78-year-old male presenting to the Emergency Department for evaluation of difficulty swallowing. Differential diagnoses considered include but are not limited to esophageal stricture, achalasia, esophagitis, mass. Ruling out the most morbid conditions drove assessment. On exam, the patient is well-appearing and is in no acute distress. He is tolerating his own secretions without difficulty, and he reports that he has been able to tolerate liquids. Workup included CBC, CMP, and CT soft tissue neck.. I independently interpreted CT scan prior to the radiologist read and noted concerns for soft tissue max in the larynx. Please see their read for final interpretation. Labs were obtained that demonstrated no acute concerning abnormalities. Patient is in no acute respiratory distress and is tolerating secretions and liquids without difficulty. Flavio Valdes: Upon assumption of care patient was hemodynamically stable. 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 Patient underwent liquid p.o. trial and was successful. Patient will follow-up with ENT associated with [facility] tomorrow morning. <Flavio Valdes MD - Last Filed: 11/24/23 16:44> Vital Signs: 11/24/23 12:19 11/24/23 16:55 Temperature 98.0 F 98.0 F Temperature Source Oral Oral Pulse Rate 75 Pulse Rate [Radial] 75 Respiratory Rate 18 18 Blood Pressure 118/59 L Blood Pressure [Left Arm] 118/59 L Blood Pressure Mean [Left Arm] 78 Blood Pressure Source Automatic Cuff Blood Pressure Source [Left Arm] Automatic Cuff Blood Pressure Position Sitting Blood Pressure Position [Left Arm] Sitting 02 Sat by Pulse Oximetry 100 Oxygen Delivery Method Room Air Room Air Lab Data Lab Results 11/24/23 12:35: SARS-CoV-2 (PCR) Not detected, Influenza A Untype (PCR) Not detected, Influenza Type B (PCR) Not detected, Group A Strep Rapid Negative 11/24/23 13:55: WBC 10.1, RBC 4.24 L, Hgb 13.0 L, Hct 38.6 L, MCV 90.9, MCH 30.7, MCHC 33.8, RDW 13.8, Plt Count 175, MPV 7.4, Neut % (Auto) 73.1, Lymph % (Auto) 20.7, [place] % (Auto) 4.4, Eos % (Auto) 1.5, Baso % (Auto) 0.3, Neut # (Auto) 7.4, Lymph # (Auto) 2.1, [place] # (Auto) 0.4, Eos # (Auto) 0.2, Baso # (Auto) 0.0, Sodium 136, Potassium 3.8, Chloride 100, Carbon Dioxide 31 H, Anion Gap 8.8, BUN 14, Creatinine 0.90, Estimated Creat Clear 67, Estimated GFR 82, Est GFR ( Amer) 99, Glucose 103 H, Calcium 8.8, Total Bilirubin 0.5, AST 22, ALT 17, Alkaline Phosphatase 99, Total Protein 6.8, Albumin 3.8, Globulin 3.0, Albumin/Globulin Ratio 1.3 Orders (Tests/Meds): ED MEDICATIONS Generic Name Dose Route Start Last Admin Trade Name Freq PRN Reason Stop Dose Admin Sodium Chloride 10 ml 11/24/23 14:02 Sodium Chloride 0.9% 10ml Flush Syringe IV 12/24/23 14:01 NEEDED PRN Maintain IV Site Sodium Chloride 10 ml 11/24/23 15:13 Sodium Chloride 0.9% 10ml Syr (Rad Only) IV 12/24/23 15:12 NEEDED PRN Maintain IV Site Discontinued Medications Generic Name Dose Route Start Last Admin Trade Name Freq PRN Reason Stop Dose Admin Iopamidol 75 ml 11/24/23 15:13 11/24/23 15:15 Iopamidol-370 (76%);100ml Bottle IV 11/24/23 15:14 75 ml ONCE ONE Administration ORDERS Category Date Time Status CT soft tissue neck w con Stat Cat Scan 11/24/23 13:00 Completed CMP [Comprehensive Metabolic Panel] Stat Lab 11/24/23 13:55 Completed Complete Blood Count Auto Diff Stat Lab 11/24/23 13:55 Completed Rapid PCR Covid and Flu A/B Stat Lab 11/24/23 12:35 Completed Strep Scrn Group A (Rapid) Stat Lab 11/24/23 12:35 Completed Strep Screen Confirmation Stat Micro 11/24/23 12:35 Received Medical Decision Narrative: In summary, this patient is a 78-year-old male presenting to the Emergency Department for evaluation of difficulty swallowing. Differential diagnoses considered include but are not limited to esophageal stricture, achalasia, esophagitis, mass. Ruling out the most morbid conditions drove assessment. On exam, the patient is well-appearing and is in no acute distress. He is tolerating his own secretions without difficulty, and he reports that he has been able to tolerate liquids. Workup included CBC, CMP, and CT soft tissue neck.. I independently interpreted [] prior to the radiologist read and noted []. Please see their read for final interpretation. Labs were obtained that demonstrated []. On reassessment, patient had [] improvement after administration of []. At this time, patient was deemed to be appropriate for []. I had an interactive discussion with [] who advised []. The patient was given instructions for close outpatient follow-up, very strict return precautions, and the patient was discharged in stable condition with prescriptions for []. It should be noted that social factors including [] complicates care. We discussed []. Flavio Valdes: Upon assumption of care patient was hemodynamically stable. 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 Patient underwent liquid p.o. trial and was successful. Patient will follow-up with ENT associated with [facility] tomorrow morning. <Flavio Valdes MD - Last Filed: 11/24/23 16:44> Critical Care Time Critical Care Time: No
--- NOTE | 2023-11-24 16:24 | PC.NURSE ---
DR ART AT BEDSIDE TO UPDATE PT AND FAMILY
[2023-11-24 16:55] VITALS: BP 118/59; PULSE 75; RESP 18; TEMP 36.7; O2SAT 100
== END 2023-11-24 16:56 | disposition home or self-care (01) ==
PROVIDERS: Emergency Medicine; Emergency Provider Emergency Medicine; PCP Family Medicine
DX: J38.7 Other diseases of larynx (principal); R13.10 Dysphagia, unspecified; R07.0 Pain in throat; H92.02 Otalgia, left ear; M54.2 Cervicalgia; I11.0 Hypertensive heart disease with heart failure; I50.9 Heart failure, unspecified; E78.5 Hyperlipidemia, unspecified; E11.9 Type 2 diabetes mellitus without complications; I49.5 Sick sinus syndrome; I48.91 Unspecified atrial fibrillation; J44.9 Chronic obstructive pulmonary disease, unspecified; I25.118 Atherosclerotic heart disease of native coronary artery with other forms of angina pectoris; F17.210 Nicotine dependence, cigarettes, uncomplicated
CPT/HCPCS: 70491; 80053; 85025; 87430; 87636; 99285; Q9967

== ENCOUNTER 2024-02-16 09:45 | Outpatient (CLI) | payer MEDICARE, OTHER, SELFPAY ==
--- NOTE | 2024-02-16 09:49 | XR_ITS ---
FINAL REPORT CLINICAL HISTORY: LT KNEE PAIN COMPARISON: None FINDINGS: LEFT KNEE 3 views of the left knee were obtained. There is no acute fracture or dislocation. There are moderately advanced hypertrophic changes of the medial compartment joint space. There is osteophyte formation in the medial joint margin. There is a minimal joint effusion. Osteophytes are noted along the undersurface of the patella. Soft tissues are unremarkable. IMPRESSION: Hypertrophic changes of osteoarthritis without acute abnormality. Reviewed, Interpreted and Dictated by Chidi Dejesus MD Transcribed by Dayanna Pineda Authenticated and [facility]
== END 2024-02-16 23:59 ==
LOC: RAD 09:46
PROVIDERS: PCP Family Medicine; Visit Provider Nurse Practitioner
DX: M25.562 Pain in left knee (principal)
CPT/HCPCS: 73562

== ENCOUNTER 2024-10-04 18:57 | Observation (INO) | payer MEDICARE, OTHER, SELFPAY ==
--- NOTE | 2024-10-04 18:49 | CT_ITS ---
PROCEDURE INFORMATION: Exam: CT Head Without And With Contrast Exam date and time: 10/04/2024 7:33 PM Age: 79 years old Clinical indication: Dizziness; Additional info: Dizziness, stage iv cancer TECHNIQUE: Imaging protocol: Computed tomography of the head without and with contrast. Radiation optimization: All CT scans at this facility use at least one of these dose optimization techniques: automated exposure control; mA and/or kV adjustment per patient size (includes targeted exams where dose is matched to clinical indication); or iterative reconstruction. Contrast material: ISOVUE 300; Contrast volume: 100 ml; Contrast route: IV; COMPARISON: CT HEAD/BRAIN WO CON 09/04/2019 5:55 AM FINDINGS: Brain: No acute intracranial hemorrhage, midline shift or mass effect. Diffuse brain parenchymal volume loss. Similar pattern of mild hypodensities within the cerebral white matter most consistent with chronic small-vessel ischemic changes. Right frontal lobe dural venous anomaly. No enhancing lesions Cerebral ventricles: No ventriculomegaly. Paranasal sinuses: Mild mucosal thickening. Bubbly opacities within the left maxillary sinus suggestive of acute sinusitis. Mastoid air cells: Visualized mastoid air cells are well aerated. Bones: Unremarkable. No acute fracture. Soft tissues: Unremarkable. IMPRESSION: No acute intracranial findings.
--- NOTE | 2024-10-04 18:52 | HMH.EDGENADL ---
Discharge Plan Disposition Patient Disposition: Admitted Condition: Good Clinical Impressions Clinical Impression: Near syncope Discharge ED Provider: Eric York General Adult HPI <ANATOLIY Moran - Last Filed: 10/04/24 21:18> General Chief complaint: Weakness Stated complaint: weakness Time Seen by Provider: 10/04/24 18:58 History of Present Illness HPI narrative: Patient presents for evaluation of near syncope. Patient was apparently ambulating from the bathroom where he had just taken some Robitussin and felt dizzy and lightheaded. Family members were able to assist him to a chair so he did not actually fall or pass out. Patient states he felt very short of breath. He denies chest pain fever chills hemoptysis hematochezia melena nausea vomiting diarrhea. He does not report any recent illness. Patient does however have a history of COPD that is not currently oxygen dependent but was in the past according the patient he is not sure why his oxygen was taken away. 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 He is currently undergoing oncology treatment in [facility]. His last treatment was approximately 2 weeks ago. Related Data Home Medications ?Medication ?Instructions ?Recorded ?Confirmed cetirizine 10 mg tablet 10 mg PO DAILY Allergy symptoms 05/08/20 10/04/24 aspirin 81 mg tablet,delayed 81 mg PO DAILY heart health 05/08/21 10/04/24 release apixaban 5 mg tablet (Eliquis) 5 mg PO BID ATRIAL FIBRILLATION 05/16/21 10/04/24 albuterol sulfate 90 mcg/actuation 2 inh inhalation 12/16/21 08/29/24 aerosol inhaler (ProAir HFA) metformin 750 mg tablet,extended 750 mg PO DAILY 01/19/22 10/04/24 release 24 hr blood sugar diagnostic (Accu-Chek #10 ea 06/23/22 08/29/24 Guide test strips) fluticasone fur. 200 mcg-umeclid 1 inh inhalation DAILY 06/23/22 08/29/24 62.5 mcg-vilant 25 mcg inhalat.powder (Trelegy Ellipta) lancets (Accu-Chek Softclix #100 ea 06/23/22 08/29/24 Lancets) cholecalciferol (vitamin D3) 50 PO 09/30/23 08/29/24 mcg (2,000 unit) capsule atorvastatin 40 mg tablet 80 mg PO DAILY 08/29/24 10/04/24 losartan 50 mg tablet 50 mg PO ONCE 08/29/24 10/04/24 ondansetron HCl 4 mg tablet 4 mg PO Q6H PRN Nausea 08/29/24 10/04/24 tamsulosin 0.4 mg capsule 0.4 mg PO ONCE 08/29/24 10/04/24 Previous Rx's ?Medication ?Instructions ?Recorded dulaglutide 1.5 mg/0.5 mL 1.5 mg (0.5 mL) SQ WEEKLY 90 days 07/30/23 subcutaneous pen injector #6.5 mL (Trulicity) furosemide 40 mg tablet See Rx Instructions .Route 06/12/24 .COMPLEX #45 tabs magnesium oxide 400 mg PO DAILY #30 caps 10/04/24 Allergies Allergy/AdvReac Type Severity Reaction Status Date / Time Penicillins Allergy Hives Verified 08/29/24 10:38 [facility] <ANATOLIY Moran - Last Filed: 10/04/24 21:18> [facility] Disclaimer: The information contained in this section may have been updated after the patient was seen, as this information can be updated by other users. Medical History (Updated 10/04/24 @ 22:56 by Monty Castle APRN) Thyroid cancer Lung cancer Cancer of kidney Diabetes mellitus Hyperlipidemia Hypertension Cardiac pacemaker in situ PAF (paroxysmal atrial fibrillation) Chest pressure Bilateral leg pain Atypical angina Abnormal cardiovascular stress test Dyspnea Tobacco dependence syndrome PAC (premature atrial contraction) Sinus bradycardia Abnormal electrocardiography CAD (coronary artery disease) Surgical History H/O arthroscopy of right knee Hx of CABG Family History Other Diabetes Social History Smoking Status: Current every day smoker tobacco type: cigarettes packs per day: 1 second hand exposure: Yes alcohol intake: never substance use type: denies use current occupational status: retired and disabled Travel in the last 8 weeks: None household members: spouse housing: house current occupational exposures/hazards: No Other Medical History Have you received the Flu Vaccine for this season: No Have you received the Pneumonia Vaccine: Yes <ANATOLIY Moran - Last Filed: 10/04/24 21:18> ROS Obtained: Yes Systems reviewed as appropriate & no additional complaints except as documented Physical Exam <ANATOLIY Moran - Last Filed: 10/04/24 21:18> General General appearance: alert and in no apparent distress Respiratory Respiratory exam: Absent normal lung sounds bilaterally (Patient has coarse Rales faintly in the bilateral bases but no increased work of breathing or accessory muscle use.), respiratory distress or wheezes Cardiovascular Cardiovascular exam: Present regular rate Neurological Exam Neurological exam: Present alert and oriented X3 Medical Decision Making <ANATOLIY Moran - Last Filed: 10/04/24 21:18> Medical Records Medical records reviewed: Yes I reviewed the patient's medical records. Screening: Per USPSTF and CDC recommendations, given the prevalence of disease in our region, it is our hospital?s policy to screen for HIV and viral Hepatitis for all patients aged 18 and over and those with ongoing risk factors. Edmund Inquiry Pt receiving controlled substance: No Vital Signs: 10/04/24 18:57 10/04/24 22:03 Temperature 97.6 F 97.8 F Temperature Source Oral Pulse Rate 70 Pulse Rate [Apical] 70 Respiratory Rate 18 20 Blood Pressure 104/62 L Blood Pressure [Left Arm] 110/70 Blood Pressure Mean [Left Arm] 83 Blood Pressure Source [Left Arm] Automatic Cuff Blood Pressure Position [Left Arm] Sitting 02 Sat by Pulse Oximetry 95 Oxygen Delivery Method Room Air Room Air Lab Data Lab results reviewed: Yes I reviewed the patient's lab results. Lab Results 10/04/24 18:30: WBC 11.2 H, RBC 4.83, Hgb 14.6, Hct 43.7, MCV 90.3, MCH 30.1, MCHC 33.4, RDW 13.9, Plt Count 314, MPV 7.7, Neut % (Auto) 70.1, Lymph % (Auto) 22.2, [place] % (Auto) 5.9, Eos % (Auto) 1.1, Baso % (Auto) 0.6, Neut # (Auto) 7.8, Lymph # (Auto) 2.5, [place] # (Auto) 0.7, Eos # (Auto) 0.1, Baso # (Auto) 0.1, Sodium 139, Potassium 3.5, Chloride 97 L, Carbon Dioxide 31 H, Anion Gap 14.5, BUN 18, Creatinine 1.10, Estimated Creat Clear 62, Estimated GFR 65, Est GFR ( Amer) 78, Glucose 147 H, Calcium 9.0, Magnesium 1.8, Total Bilirubin 0.7, AST 31, ALT 27, Alkaline Phosphatase 162 H, NT-Pro-B Natriuret Pep 910 H, Total Protein 7.4, Albumin 3.8, Globulin 3.6 H, Albumin/Globulin Ratio 1.1, HIV 1&2 Antibody Rapid Nonreactive 10/04/24 21:00: Chlamy pneumoniae PCR Not detected, Adenovirus (PCR) Not detected, B. pertussis DNA (PCR) Not detected, Coronavirus OC43 (PCR) Not detected, Coronavirus HKU1 (PCR) Not detected, Coronavirus 229E (PCR) Not detected, SARS-CoV-2 (PCR) Not detected, Coronavirus NL63 (PCR) Not detected, Human Metapneumovir PCR Not detected, Influenza A (H1) PCR Not detected, Influ A (H1N1/09) PCR Not detected, Influenza A (H3) PCR Not detected, Influenza Type A (PCR) Not detected, Influenza Type B (PCR) Not detected, M. pneumoniae (PCR) Not detected, Parainfluenza 1 (PCR) Not detected, Parainfluenza 2 (PCR) Not detected, Parainfluenza 3 (PCR) Not detected, Parainfluenza 4 (PCR) Not detected, RSV (PCR) Detected A, Entero/Rhino (PCR) Detected A 10/04/24 18:30 10/04/24 18:30 Orders (Tests/Meds): ED MEDICATIONS Generic Name Dose Route Start Last Admin Trade Name Freq PRN Reason Stop Dose Admin Acetaminophen 650 mg 10/04/24 21:52 Acetaminophen 325mg Tab PO 11/03/24 21:51 Q4HP PRN Fever or Mild Pain (1-3) Albuterol/Ipratropium 3 ml 10/05/24 06:00 Ipratropium/Albuterol 3 Ml Neb IH 11/04/24 05:59 Q6RT CHAYA Docusate Sodium 100 mg 10/05/24 09:00 Docusate Sodium 100 Mg Capsule PO 11/04/24 08:59 DAILY CHAYA Lactated Ringer's 1,000 mls @ 75 mls/hr 10/04/24 22:00 10/04/24 22:20 Lactated Ringer's 1000 Ml Bag IV 11/03/24 21:59 75 mls/hr .[id number] CHAYA Administration Nicotine 21 mg 10/04/24 21:52 Nicotine 21mg/24hr Patch TD 11/03/24 21:51 DAILYP PRN Nicotine Cravings Ondansetron HCl 4 mg 10/04/24 21:52 Ondansetron 4mg/2ml Vial IV 11/03/24 21:51 Q8HP PRN Nausea Pantoprazole Sodium 40 mg 10/05/24 21:00 Pantoprazole 40mg Tablet PO 11/04/24 20:59 HS CHAYA Sodium Chloride 10 ml 10/04/24 21:52 Sodium Chloride 0.9% 10ml Flush Syringe IV 11/03/24 21:51 NEEDED PRN Maintain IV Site Discontinued Medications Generic Name Dose Route Start Last Admin Trade Name Freq PRN Reason Stop Dose Admin Albuterol/Ipratropium 3 ml 10/04/24 21:06 10/04/24 22:16 Ipratropium/Albuterol 3 Ml Neb IH 10/04/24 21:07 3 ml ONCE ONE Administration Dexamethasone Sodium Phosphate 10 mg 10/04/24 21:06 10/04/24 22:19 Dexamethasone 4mg/Ml 5ml Mdv IV 10/04/24 21:07 10 mg ONCE ONE Administration Sodium Chloride 1,000 mls @ 999 mls/hr 10/04/24 18:50 10/04/24 20:26 Sod Chlor 0.9% 1000ml Bag IV 10/04/24 19:50 999 mls/hr .Q1H1M ONE Administration Iopamidol 100 ml 10/04/24 19:36 10/04/24 19:37 Iopamidol-300 (61%) 100ml Vial IV 10/04/24 19:37 100 ml ONCE ONE Administration Protocol Magnesium Oxide 800 mg 10/04/24 20:37 10/04/24 20:42 Magnesium Oxide 400mg Tablet PO 10/04/24 20:38 800 mg ONCE ONE Administration Sodium Chloride 10 ml 10/04/24 19:36 10/04/24 19:37 Sodium Chloride 0.9% 10ml Syr (Rad Only) IV 10/04/24 19:37 10 ml ONCE ONE Administration ORDERS Category Date Time Status CT head/brain wo/w con Stat Cat Scan 10/04/24 18:49 Completed Consult to Case Management [CONS] Routine Cons 10/04/24 21:52 Active CXR --portable [XR chest portable] Stat Exams 10/04/24 20:52 Completed BNP [NT Pro Brain Natriuretic Pep.] Stat Lab 10/04/24 18:30 Completed CBC w/Auto Diff [Complete Blood Count Auto Diff] Stat Lab 10/04/24 18:30 Completed CMP [Comprehensive Metabolic Panel] Stat Lab 10/04/24 18:30 Completed Complete Blood Count Auto Diff AMLAB Lab 10/05/24 06:00 Ordered Comprehensive Metabolic Panel AMLAB Lab 10/05/24 06:00 Ordered Full Resp Panel w/COVID ([facility]) Routine Lab 10/04/24 21:00 Completed HIV (1&2) Antibody Rapid Stat Lab 10/04/24 18:30 Completed Hep C Ab with Reflex to RNA Stat Lab 10/04/24 18:30 Received Magnesium AMLAB Lab 10/05/24 06:00 Ordered Magnesium Stat Lab 10/04/24 18:30 Completed Medical Decision Narrative: In summary patient is a 79-year-old male who presents to the emergency department for evaluation of near syncope. Patient is initially arriving with a blood pressure of 110/70 pulse 70 respiratory rate 18 satting at 95% room air upon arrival, afebrile. Sickle exam is unremarkable and nonfocal including normal breath sounds normal heart sounds [place] Coma Score 15 patient awake alert and oriented person place and circumstance. Differential diagnosis includes vasovagal syncope versus worsening metastatic cancer versus intracranial lesion versus COPD exacerbation etc. Initial workup will be conducted with hematologic labs CT scan of the head plain film chest x-ray. Initial interventions were considered however patient currently has no specific complaints that require intervention. Initial workup reviewed by me shows his hematologic labs are nonactionable and his imaging does not show any acute processes.. Upon repeat evaluation patient was attempted to ambulate and he actually became symptomatic with dizziness and it was noted that his oxygen saturation dropped down to 85%.. Given this I had interactive discussion with hospital medicine and patient will be admitted for further evaluation and care. <Eric York MD - Last Filed: 10/04/24 23:46> Vital Signs: 10/04/24 18:57 10/04/24 22:03 Temperature 97.6 F 97.8 F Temperature Source Oral Pulse Rate 70 Pulse Rate [Apical] 70 Respiratory Rate 18 20 Blood Pressure 104/62 L Blood Pressure [Left Arm] 110/70 Blood Pressure Mean [Left Arm] 83 Blood Pressure Source [Left Arm] Automatic Cuff Blood Pressure Position [Left Arm] Sitting 02 Sat by Pulse Oximetry 95 Oxygen Delivery Method Room Air Room Air Lab Data Lab Results 10/04/24 18:30: WBC 11.2 H, RBC 4.83, Hgb 14.6, Hct 43.7, MCV 90.3, MCH 30.1, MCHC 33.4, RDW 13.9, Plt Count 314, MPV 7.7, Neut % (Auto) 70.1, Lymph % (Auto) 22.2, [place] % (Auto) 5.9, Eos % (Auto) 1.1, Baso % (Auto) 0.6, Neut # (Auto) 7.8, Lymph # (Auto) 2.5, [place] # (Auto) 0.7, Eos # (Auto) 0.1, Baso # (Auto) 0.1, Sodium 139, Potassium 3.5, Chloride 97 L, Carbon Dioxide 31 H, Anion Gap 14.5, BUN 18, Creatinine 1.10, Estimated Creat Clear 62, Estimated GFR 65, Est GFR ( Amer) 78, Glucose 147 H, Calcium 9.0, Magnesium 1.8, Total Bilirubin 0.7, AST 31, ALT 27, Alkaline Phosphatase 162 H, NT-Pro-B Natriuret Pep 910 H, Total Protein 7.4, Albumin 3.8, Globulin 3.6 H, Albumin/Globulin Ratio 1.1, HIV 1&2 Antibody Rapid Nonreactive 10/04/24 21:00: Chlamy pneumoniae PCR Not detected, Adenovirus (PCR) Not detected, B. pertussis DNA (PCR) Not detected, Coronavirus OC43 (PCR) Not detected, Coronavirus HKU1 (PCR) Not detected, Coronavirus 229E (PCR) Not detected, SARS-CoV-2 (PCR) Not detected, Coronavirus NL63 (PCR) Not detected, Human Metapneumovir PCR Not detected, Influenza A (H1) PCR Not detected, Influ A (H1N1/09) PCR Not detected, Influenza A (H3) PCR Not detected, Influenza Type A (PCR) Not detected, Influenza Type B (PCR) Not detected, M. pneumoniae (PCR) Not detected, Parainfluenza 1 (PCR) Not detected, Parainfluenza 2 (PCR) Not detected, Parainfluenza 3 (PCR) Not detected, Parainfluenza 4 (PCR) Not detected, RSV (PCR) Detected A, Entero/Rhino (PCR) Detected A Orders (Tests/Meds): ED MEDICATIONS Generic Name Dose Route Start Last Admin Trade Name Freq PRN Reason Stop Dose Admin Acetaminophen 650 mg 10/04/24 21:52 Acetaminophen 325mg Tab PO 11/03/24 21:51 Q4HP PRN Fever or Mild Pain (1-3) Albuterol/Ipratropium 3 ml 10/05/24 06:00 Ipratropium/Albuterol 3 Ml Neb 11/04/24 05:59 Q6RT CHAYA Docusate Sodium 100 mg 10/05/24 09:00 Docusate Sodium 100 Mg Capsule PO 11/04/24 08:59 DAILY CHAYA Lactated Ringer's 1,000 mls @ 75 mls/hr 10/04/24 22:00 10/04/24 22:20 Lactated Ringer's 1000 Ml Bag IV 11/03/24 21:59 75 mls/hr .[id number] CHAYA Administration Nicotine 21 mg 10/04/24 21:52 Nicotine 21mg/24hr Patch TD 11/03/24 21:51 DAILYP PRN Nicotine Cravings Ondansetron HCl 4 mg 10/04/24 21:52 Ondansetron 4mg/2ml Vial IV 11/03/24 21:51 Q8HP PRN Nausea Pantoprazole Sodium 40 mg 10/05/24 21:00 Pantoprazole 40mg Tablet PO 11/04/24 20:59 HS CHAYA Sodium Chloride 10 ml 10/04/24 21:52 Sodium Chloride 0.9% 10ml Flush Syringe IV 11/03/24 21:51 NEEDED PRN Maintain IV Site Discontinued Medications Generic Name Dose Route Start Last Admin Trade Name Freq PRN Reason Stop Dose Admin Albuterol/Ipratropium 3 ml 10/04/24 21:06 10/04/24 22:16 Ipratropium/Albuterol 3 Ml Neb 10/04/24 21:07 3 ml ONCE ONE Administration Dexamethasone Sodium Phosphate 10 mg 10/04/24 21:06 10/04/24 22:19 Dexamethasone 4mg/Ml 5ml Mdv IV 10/04/24 21:07 10 mg ONCE ONE Administration Sodium Chloride 1,000 mls @ 999 mls/hr 10/04/24 18:50 10/04/24 20:26 Sod Chlor 0.9% 1000ml Bag IV 10/04/24 19:50 999 mls/hr .Q1H1M ONE Administration Iopamidol 100 ml 10/04/24 19:36 10/04/24 19:37 Iopamidol-300 (61%) 100ml Vial IV 10/04/24 19:37 100 ml ONCE ONE Administration Protocol Magnesium Oxide 800 mg 10/04/24 20:37 10/04/24 20:42 Magnesium Oxide 400mg Tablet PO 10/04/24 20:38 800 mg ONCE ONE Administration Sodium Chloride 10 ml 10/04/24 19:36 10/04/24 19:37 Sodium Chloride 0.9% 10ml Syr (Rad Only) IV 10/04/24 19:37 10 ml ONCE ONE Administration ORDERS Category Date Time Status CT head/brain wo/w con Stat Cat Scan 10/04/24 18:49 Completed Consult to Case Management [CONS] Routine Cons 10/04/24 21:52 Active CXR --portable [XR chest portable] Stat Exams 10/04/24 20:52 Completed BNP [NT Pro Brain Natriuretic Pep.] Stat Lab 10/04/24 18:30 Completed CBC w/Auto Diff [Complete Blood Count Auto Diff] Stat Lab 10/04/24 18:30 Completed CMP [Comprehensive Metabolic Panel] Stat Lab 10/04/24 18:30 Completed Complete Blood Count Auto Diff AMLAB Lab 10/05/24 06:00 Ordered Comprehensive Metabolic Panel AMLAB Lab 10/05/24 06:00 Ordered Full Resp Panel w/COVID (H) Routine Lab 10/04/24 21:00 Completed HIV (1&2) Antibody Rapid Stat Lab 10/04/24 18:30 Completed Hep C Ab with Reflex to RNA Stat Lab 10/04/24 18:30 Received Magnesium AMLAB Lab 10/05/24 06:00 Ordered Magnesium Stat Lab 10/04/24 18:30 Completed ECG Data Tracing #1: I reviewed this ECG and interpreted as documented below: (Ventricular paced rhythm 70 beats a minute with QRS wide at 168, QTc 497. Leftward axis) Medical Decision Narrative: In summary patient is a 79-year-old male who presents to the emergency department for evaluation of near syncope. Patient is initially arriving with a blood pressure of 110/70 pulse 70 respiratory rate 18 satting at 95% room air upon arrival, afebrile. Sickle exam is unremarkable and nonfocal including normal breath sounds normal heart sounds [place] Coma Score 15 patient awake alert and oriented person place and circumstance. Differential diagnosis includes vasovagal syncope versus worsening metastatic cancer versus intracranial lesion versus COPD exacerbation etc. Initial workup will be conducted with hematologic labs CT scan of the head plain film chest x-ray. Initial interventions were considered however patient currently has no specific complaints that require intervention. Initial workup reviewed by me shows his hematologic labs are nonactionable and his imaging does not show any acute processes.. Upon repeat evaluation patient was attempted to ambulate and he actually became symptomatic with dizziness and it was noted that his oxygen saturation dropped down to 85%.. Given this I had interactive discussion with hospital medicine and patient will be admitted for further evaluation and care. I was consulted by the NANCY, and we discussed the complexity of the problems being addressed. I approved the treatment and management plan for this patient's care in the Emergency Department, thus performing a substantive portion of the medical decision making. Eric York MD Critical Care <ANATOLIY Moran - Last Filed: 10/04/24 21:18> Critical Care Time Critical Care Time: No
[2024-10-04 18:57] VITALS: BP 110/70; PULSE 70; RESP 18; TEMP 36.4; O2SAT 95; BMI 25.7
[2024-10-04 18:59] LABS: Basophils # 0.1 K/mm3 (0-0.2); Basophils % 0.6 % (0.1-2.0); Eosinophils # 0.1 K/mm3 (0.0-0.4); Eosinophils % 1.1 % (0.1-12.0); Hematocrit 43.7 % (42.0-52.0); Hemoglobin 14.6 g/dL (14.1-18.0); Lymphocytes # 2.5 K/mm3 (0.7-4.5); Lymphocytes % 22.2 % (10-50); Mean Corpuscular HGB Conc 33.4 g/dL (31.8-35.4); Mean Corpuscular Hemoglobin 30.1 pg (27.0-31.2); Mean Corpuscular Volume 90.3 fl (80-94); Mean Platelet Volume 7.7 fl (7.4-10.4); Monocytes # 0.7 K/mm3 (0.1-1.0); Monocytes % 5.9 % (1.7-9.3); Neutrophils # 7.8 K/mm3 (1.8-7.8); Neutrophils % 70.1 % (37.0-80.0); Platelet Count 314 K/mm3 (142-424); Red Blood Count 4.83 M/mm3 (4.60-6.20); Red Cell Distribution Width 13.9 % (11.5-17.5); White Blood Count 11.2 K/mm3 (4.8-10.8)
--- NOTE | 2024-10-04 19:02 | ECG_ITS ---
APPROVED REPORT Exam: Resting ECG HR:70 bpm ECG Measurements Heart Rate 70 AXES QRSd 168 QRS 241 QT 477 T 87 QTc 497 Conclusion V paced rhythm No ischemic change Electronically signed by : REYNA HERNANDEZ, 10/04/2024 23:50:46
--- OUTSIDE RECORDS SUMMARY | 2024-10-04 19:03 | XMS_ITS | Clinical Summary ---
Author Organization [employer] Address [address] [place] [address] Care Team Providers Care Supplier Specialist Name Role Phone Unavailable Primary Care Provider Unavailabl e Allergies Active Allergy Reactions Criticality Noted Date Comments Penicillins Hives High 09/23/2022 Medications potassium chloride (KLOR-CON) 8 MEQ CR tablet Take 1 tablet (8 mEq total) by mouth daily. 4 Active metoprolol succinate (TOPROL-XL) 100 MG 24 hr tablet Take 1 tablet (100 mg total) by mouth daily. 4 Active Eliquis 5 MG tablet Take 1 tablet (5 mg total) by mouth 2 (two) times daily. 4 Active spironolactone (ALDACTONE) 25 MG tablet Take 1 tablet (25 mg total) by mouth daily. 3 Active atorvastatin (LIPITOR) 80 MG tablet Take 0.5 tablets (40 mg total) by mouth daily. 4 Active pantoprazole (PROTONIX) 40 MG tablet Take 1 tablet (40 mg total) by mouth daily. 3 Active aspirin 81 MG EC tablet Take 1 tablet (81 mg total) by mouth daily. Active dulaglutide (Trulicity) 1.5 mg/0.5 mL syringe Inject 0.5 mLs (1.5 mg total) subcutaneously once a week. Active Active Problems Problem Noted Date Diagnosed Date CAD (coronary artery disease) 12/01/2023 HTN (hypertension) 12/01/2023 COPD (chronic obstructive pulmonary disease) Tobacco abuse 12/01/2023 Type II diabetes mellitus Social History Tobacco Use Types Packs/Day Years Used Date Smoking Tobacco: Every Day Cigarettes Smokeless Tobacco: Current Tobacco Cessation:Ready to Q uit: Not Asked; Counseling Given: Not Answered Alcohol Use Standard Drinks/Week Comments Not Currently 0 (1 standard drink = 0.6 oz pur e alcohol) Interpersonal Safety Answer Date Record ed Family or friends hurt you Not on file 12/01 Family or friends insult you Not on file Family or friends threaten you Not on file 0 12/01/2023 Family or friends scream or curse at you Not on file 12/01/2023 Housing Stability Answer Date Recorded Living situation today Not on file Living situation problems Not on file 2023 Food Insecurity Answer Date Recorded Food run out past 12 months Not on file 11/03 Food did not last past 12 months Not on file 12/01/2023 Employment Answer Date Recorded Help finding and keeping a job Not on file 0 12/01/2023 Family and Community Support Answer Pavel e Recorded Help with Day to Day Activities Not on file 12/01/2023 Feeling Lonely or Isolated Not on file 12/01 Educational Attainment Answer Date Luis rded Speak language other than [place] at home Not on file 12/01/2023 Want help with school or training Not on file 12/01/2023 Depression Answer Date Recorded PHQ-2 Risk Not on file 12/01/2023 Disabilities Answer Date Recorded Difficulty concentrating Not on file 024 Difficulty doing errands alone Not on file 0 12/01/2023 Substance Use Answer Date Recorded Used prescription meds for non-medical reasons N ot on file 12/01/2023 Used illegal drugs past 12 months Not on file 12/01/2023 Sex and Gender Information Value Date Recorded Sex Assigned at Not on file Legal Sex Male 7:25 PM CDT Gender Identity Not on file Sexual Orientation Not on file Last Filed Vital Signs Vital Sign Reading Time Taken Comments Blood Pressure 109/51 12/01/2023 12:30 PM EST Pulse 70 12/01/2023 12:35 PM EST Temperature 36.6 ??C (97.9 ??F) 12/01/2023 12:[address] Respiratory Rate 18 12/01/2023 12:35 PM EST Oxygen Saturation 95% 12/01/2023 12:35 PM EST Inhaled Oxygen Concentration - - Weight 74.7 kg (164 lb 9.6 oz) 12/01/2023 10:02 AM EST Height 185.4 cm (6' 1 ) 12/01/2023 10:02 AM EST Body Mass Index 21.72 12/01/2023 10:02 AM EST Plan of Treatment Health Maintenance Due Date Last Done Comments Diabetic Kidney Health Evalu ation (KED) 1946 Diabetic Eye Exam 1956 Diabetic foot exam 1956 Depression Screening (12+) 1958 Tobacco Cessation Counseling and Screening (12+) 1958 Hepatitis C Screening 1964 DTAP/TDAP/TD VACCINES (1 - Tdap) 1965 Shingles Vaccine (Zoster) (1 of 2) 1996 Pneumococcal 65+ years (2 of 2 - PCV) 11/01/201411/2013, 11/01/2012 Respiratory Syncytial Virus (RSV) Adult or (1 - 1-dose 75+ series) 2021 Falls Risk Screening 11/01/2023 Hemoglobin A1C 12/01/2023 COVID-19 VACCINE (2 - season) 2024 Influenza Vaccine (#1) 2024 4, 11/01/2012, 09/14/2009 Medical Devices Implanted Type Area Compliance Testing Analyst Device Identifier Shelf Expiration Date Model / Serial / Lot Pacemakers Pacemakers Insurance [facility]UAL COMPLETE [facility]
--- OUTSIDE RECORDS SUMMARY | 2024-10-04 19:04 | XMS_ITS | Encounter Summary ---
Author Organization [facility] Address [address] [place] [address] Care Team Providers Care Promotions Team Leader Name Role Phone Efrain Sarah MD Unavailable [phone] Aris Lynch MD Unavailable [phone] Drew Howell MD Primary Care Provider [phone] Toñito Huerta MD Unavailable [phone] Encounter Details Date Type Department Care Team (Late st Contact Info) Description 01/18/2024 Orders Only Pav [facility] Head, Neck & Respiratory [address] [facility], [address]nd [place] [address] Judith Bryan, RN [facility] 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) Social History Tobacco Use Types Packs/Day Years Used Date Smoking Tobacco: Every Day Cigarettes 1 70.9 Started: 1952 Smokeless Tobacco: Never Comments:Trying to quit Alcohol Use Standard Drinks/Week Comments Never 0 (1 standard drink = 0.6 oz pur e alcohol) Sex and Gender Information Value Date Recorded Sex Assigned at Not on file Legal Sex Male 8:37 PM EDT Gender Identity Not on file Sexual Orientation Not on file documented as of this encounter Plan of Treatment Not on file documented as of this encounter Results * Thyroid Stimulating Hormone, Plasma (TSH) (01/19/2024 8:47 AM EDT) Thyroid Stimulating Hormone, Plasma 1.19 0.40 - 4.20 uIU/mL 01/19/2024 9:33 AM EDT [facility] Blood Venous blood specimen / Unknown Venipuncture / Unknown 01/19/2024 8:47 AM EDT 01/19/2024 8:57 AM EDT us Toñito Huerta MD LAB BLOOD ORDERABLES Final Res ult [facility] [address] [place] [address] * (ABNORMAL) CBC and Differential (01/19/2024 8:47 AM EDT) WBC Count 9.36 3.70 - 10.30 10*3/uL LAB HEMATOLOGY METHOD 01/19/2024 9:06 AM EDT [facility] RBC Count 4.10(L) 4.60 - 6.10 10*6/uL LAB HEMATOLOGY METHOD 01/19/2024 9:06 AM EDT [facility] HGB 12.1(L) 13.7 - 17.5 g/dL LAB HEMATOLOGY METHOD 01/19/2024 9:06 AM EDT [facility] HCT 37.4(L) 40.0 - 51.0 % LAB HEMATOLOGY METHOD 01/19/2024 9:06 AM EDT [facility] Platelet Count 165 155 - 369 10*3/uL LAB HEMATOLOGY METHOD 01/19/2024 9:06 AM EDT [facility] MCV 91 79 - 98 fL LAB HEMATOLOGY METHOD 01/19/2024 9:06 AM EDT [facility] MCH 29.5 26.0 - 32.0 pg LAB HEMATOLOGY METHOD 01/19/2024 9:06 AM EDT [facility] MCHC 32.4 30.7 - 35.5 g/dL LAB HEMATOLOGY METHOD 01/19/2024 9:06 AM EDT [facility] RDW 13.4 11.5 - 14.5 % LAB HEMATOLOGY METHOD 01/19/2024 9:06 AM EDT [facility] MPV 10.7 8.8 - 12.5 fL LAB HEMATOLOGY METHOD 01/19/2024 9:06 AM EDT [facility] nRBC 0.0 <=0.0 per 100 WBCs LAB HEMATOLOGY METHOD 01/19/2024 9:06 AM EDT [facility] Differential Type Automated LAB HEMATOLOGY METHOD 01/19/2024 9:06 AM EDT [facility] Neutrophils % 76.0 % LAB HEMATOLOGY METHOD 01/19/2024 9:06 AM EDT [facility] Lymphocytes % 15.0 % LAB HEMATOLOGY METHOD 01/19/2024 9:06 AM EDT [facility] Monocytes % 8.0 % LAB HEMATOLOGY METHOD 01/19/2024 9:06 AM EDT [facility] Eosinophils % 1.0 % LAB HEMATOLOGY METHOD 01/19/2024 9:06 AM EDT [facility] Basophils % 0.0 % LAB HEMATOLOGY METHOD 01/19/2024 9:06 AM EDT [facility] Immature Granulocytes % 0.0 % LAB HEMATOLOGY METHOD 01/19/2024 9:06 AM EDT [facility] Neutrophils Absolute 7.06(H) 1.60 - 6.10 10*3/uL LAB HEMATOLOGY METHOD 01/19/2024 9:06 AM EDT [facility] Lymphocytes Absolute 1.38 1.20 - 3.90 10*3/uL LAB HEMATOLOGY METHOD 01/19/2024 9:06 AM EDT [facility] Monocytes Absolute 0.79 0.30 - 0.90 10*3/uL LAB HEMATOLOGY METHOD 01/19/2024 9:06 AM EDT [facility] Eosinophils Absolute 0.07 0.00 - 0.50 10*3/uL LAB HEMATOLOGY METHOD 01/19/2024 9:06 AM EDT [facility] Basophils Absolute 0.02 0.00 - 0.10 10*3/uL LAB HEMATOLOGY METHOD 01/19/2024 9:06 AM EDT [facility] Immature Granulocytes Absolute 0.04 0.00 - 0.06 10*3/uL LAB HEMATOLOGY METHOD 01/19/2024 9:06 AM EDT [facility] Blood Venous blood specimen / Unknown Venipuncture / Unknown 01/19/2024 8:47 AM EDT 01/19/2024 8:58 AM EDT Narrative [facility] - 01/19/2024 9:06 AM EDT Therapeutic decision making should be based on absolute values, rather than percentages. us Toñito Huerta MD LAB BLOOD ORDERABLES Final Res ult [facility] [address] [place] [address] * (ABNORMAL) Comprehensive Metabolic Panel, Plasma (01/19/2024 8:47 AM EDT) [facility] Glucose, Plasma 161(H) 74 - 99 mg/dL 01/19/2024 9:33 AM EDT [facility] BUN, Plasma 17 8 - 23 mg/dL 01/19/2024 9:33 AM EDT [facility] Creatinine, Plasma 0.86 0.80 - 1.30 mg/dL 01/19/2024 9:33 AM EDT [facility] BUN/Creatinine Ratio 01/19/2024 9:33 AM EDT [facility] Sodium, Plasma 137 136 - 145 mmol/L 01/19/2024 9:33 AM EDT [facility] Potassium, Plasma 4.2 3.7 - 4.8 mmol/L 01/19/2024 9:33 AM EDT [facility] Chloride, Plasma 100 97 - 107 mmol/L 01/19/2024 9:33 AM EDT [facility] CO2, Plasma 27 22 - 29 mmol/L 01/19/2024 9:33 AM EDT [facility] Anion Gap 10 6 - 16 mmol/L 01/19/2024 9:33 AM EDT [facility] Total Calcium, Plasma 8.9 8.9 - 10.2 mg/dL 01/19/2024 9:33 AM EDT [facility] Total Protein 6.9 6.3 - 7.9 g/dL 01/19/2024 9:33 AM EDT [facility] Albumin, Plasma 3.6 3.5 - 5.2 g/dL 01/19/2024 9:33 AM EDT [facility] AST, Plasma 16 10 - 50 U/L 01/19/2024 9:33 AM EDT [facility] ALT, Plasma 19 10 - 50 U/L 01/19/2024 9:33 AM EDT [facility] Alkaline Phosphatase, Plasma 106 40 - 115 U/L 01/19/2024 9:33 AM EDT [facility] Total Bilirubin, Plasma 0.5 0.2 - 1.1 mg/dL 01/19/2024 9:33 AM EDT [facility] eGFRcr 89.2 mL/min/1.7 3m*2 01/19/2024 9:33 AM EDT [facility] Comment:Reported eGFRcr in m L/min/1.73m2 is based the CKD-EPI 2020 equation that does not use a race coefficient. 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 supraglottis documented in this encounter Additional Health Concerns Assessment Noted Time A fall risk assessment has been complete d for the patient 01/10/2024 8:52 AM EDT A Body Mass Index follow-up plan has been documented for the patient 01/01/2024 10:12 AM EST documented as of this encounter Care Teams Promotions Team Leader Relationship Specialty Start Date End Date Drew Howell MD [address] [place] [id number] PCP - General 12/23/23 Efrain Sarah MD [address] [place] [address] 12/02/23 Aris yLnch MD [address] [facility] [address] [phone] Surgeon Otolaryngology 12/02/23 Toñito Huerta MD [address] [place] [phone] Consulting Physician Medical Oncology 01/18/24 documented as of this encounter
--- OUTSIDE RECORDS SUMMARY | 2024-10-04 19:04 | XMS_ITS | Encounter Summary ---
Author Organization [facility] Address [address] [place] [address] Care Team Providers Care Tour Leader Name Role Phone Unavailable Primary Care Provider Unavailabl e Reason for Referral * CAT Scan (Routine) - Closed Specialty Diagnoses / Procedures Referred By Osmany alberto Referred To Contact Radiology Diagnoses Malignant neoplasm of supraglottis (HCC) Procedures PET/CT Skull Base-Mid Thigh (Whole Body) Aris Lynch MD [address] [place] [id number] Phone: tel: fax: Referral ID Status Reason Start Date Expiration Date Visits Re quested Visits Authorized [id number] Closed 12/22/2023 06/19/2024 1 1 Reason for Visit * CAT Scan (Routine) - Closed Specialty Diagnoses / Procedures Referred By Osmany alberto Referred To Contact Radiology Diagnoses Malignant neoplasm of supraglottis (HCC) Procedures PET/CT Skull Base-Mid Thigh (Whole Body) Aris Lynch MD [address] [place] [address] Phone: tel: fax: Referral ID Status Reason Start Date Expiration Date Visits Re quested Visits Authorized [id number] Closed 12/22/2023 06/19/2024 1 1 Encounter Details Date Type Department Care Team (Latest Contact Info) Description 12/22/2023 8:19 AM EST - 12/22/2023 11:59 PM EST Hospital Encounter [facility] PET CT - [address] [place] [address] Malignant neoplasm of supraglottis (HCC) Discharge Disposition: Home or Self Care Social History Tobacco Use Types Packs/Day Years Used Date Smoking Tobacco: Every Day Cigarettes Smokeless Tobacco: Current Alcohol Use Standard Drinks/Week Comments Not Currently [...] Date Luis rded Speak language other than Malagasy at home Not on file 12/01/2023 Want [...] on file documented as of this encounter Medications at Time of Discharge aspirin 81 MG EC tablet Take 1 tablet (81 mg total) by mouth daily. atorvastatin (LIPITOR) 80 MG tablet Take 0.5 tablets (40 mg total) by mouth daily. 11/18/2023 dulaglutide (Trulicity) 1.5 mg/0.5 mL syringe Inject 0.5 mLs (1.5 mg total) subcutaneously once a week. Eliquis 5 MG tablet Take 1 tablet (5 mg total) by mouth 2 (two) times daily. 11/08/2023 metoprolol succinate (TOPROL-XL) 100 MG 24 hr tablet Take 1 tablet (100 mg total) by mouth daily. 11/09/2023 pantoprazole (PROTONIX) 40 MG tablet Take 1 tablet (40 mg total) by mouth daily. 09/27/2023 potassium chloride (KLOR-CON) 8 MEQ CR tablet Take 1 tablet (8 mEq total) by mouth daily. 11/08/2023 spironolactone (ALDACTONE) 25 MG tablet Take 1 tablet (25 mg total) by mouth daily. 10/21/2023 documented as of this encounter Plan of Treatment Not on file documented as of this encounter Procedures Procedure Name Priority Date/Time Associated Diagnosis Comments P.E.T./CT SKULL BASE TO MID-THIGH Routine 12/22/2023 11:05 AM EST Malignant neoplasm of supraglottis (HCC) documented in this encounter Results * PET/CT Skull Base-Mid Thigh (Whole Body) (12/22/2023 11:05 AM EST) Anatomical Region Laterality Modality Computed Tomogra phy (CT) 12/22/2023 11:2 9 AM EST Impressions 12/22/2023 2:19 PM EST 1. Supraglottic mass consistent with the patient's known primary malignancy. Parotid hypermetabolism and hypermetabolic cervical lymph nodes are likely metastatic. 2. Pulmonary metastatic disease. 3. Indeterminate left adrenal nodule. Images reviewed, interpreted, and dictated by Dr. Fartun Ledezma. Transcribed by Presley Braun PA-C. Narrative 12/22/2023 2:19 PM EST PROCEDURE: ??PET/CT IMAGING, SKULL BASE TO MID THIGH INDICATION: ??Supraglottic cancer, initial staging. TECHNIQUE: ??16.87 mCi of 18-FDG was injected intravenously with a fasting blood glucose of 83 mg/dl. ??PET/CT images were obtained from skull base to mid thigh. COMPARISON: ??No prior FINDINGS: There is a hypermetabolic mass in the supraglottic larynx, asymmetric to the left. This demonstrates a maximum SUV of 24.6. There are hypermetabolic soft tissue nodules in the bilateral parotid glands with maximum SUV on the left of 6.5. There is a hypermetabolic lymph node on image 33 medial to the right angle of the mandible. This demonstrates a maximum SUV of 7.9. There is no other hypermetabolic cervical adenopathy. There is bilateral hilar hypermetabolism with maximum SUV on the left of 3.7 and the right of 3.6. There are two hypermetabolic right lung nodules. The right infrahilar nodule demonstrates a maximum SUV of 16.2. A right upper lobe nodule demonstrates maximum SUV of 10.7. The liver, spleen, renal collecting systems, and bladder demonstrate expected FDG uptake ??There is a 3.3 cm left adrenal module which is mildly FDG avid but equal to background liver. There is uptake in the gastrostomy tube tract that is likely postoperative. GI uptake is otherwise unremarkable.. ??There is no hypermetabolic abdominal or pelvic lymphadenopathy. No hypermetabolic bone lesions are identified. Procedure Note Fartun Ledezma MD - 12/22/2023 PROCEDURE: PET/CT IMAGING, SKULL BASE TO MID THIGH INDICATION: Supraglottic cancer, initial staging. TECHNIQUE: 16.87 mCi of 18-FDG was injected intravenously with a fasting blood glucose of 83 mg/dl. PET/CT images were obtained from skull base to mid thigh. COMPARISON: No prior FINDINGS: There is a hypermetabolic mass in the supraglottic larynx, asymmetric to the left. This demonstrates a maximum SUV of 24.6. There are hypermetabolic soft tissue nodules in the bilateral parotid glands with maximum SUV on the left of 6.5. There is a hypermetabolic lymph node on image 33 medial to the right angle of the mandible. This demonstrates a maximum SUV of 7.9. There is no other hypermetabolic cervical adenopathy. There is bilateral hilar hypermetabolism with maximum SUV on the left of 3.7 and the right of 3.6. There are two hypermetabolic right lung nodules. The right infrahilar nodule demonstrates a maximum SUV of 16.2. A right upper lobe nodule demonstrates maximum SUV of 10.7. The liver, spleen, renal collecting systems, and bladder demonstrate expected FDG uptake There is a 3.3 cm left adrenal module which is mildly FDG avid but equal to background liver. There is uptake in the gastrostomy tube tract that is likely postoperative. GI uptake is otherwise unremarkable.. There is no hypermetabolic abdominal or pelvic lymphadenopathy. No hypermetabolic bone lesions are identified. IMPRESSION: 1. Supraglottic mass consistent with the patient's known primary malignancy. Parotid hypermetabolism and hypermetabolic cervical lymph nodes are likely metastatic. 2. Pulmonary metastatic disease. 3. Indeterminate left adrenal nodule. Images reviewed, interpreted, and dictated by Dr. Fartun Ledezma. Transcribed by Presley Braun PA-C. us Aris Lynch MD IMG CT ORDERABLES Final Result documented in this encounter Visit Diagnoses Diagnosis Malignant neoplasm of supraglottis (HCC) Malignant neoplasm of supraglottis documented in this encounter
--- OUTSIDE RECORDS SUMMARY | 2024-10-04 19:04 | XMS_ITS | Encounter Summary ---
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) Aris Lynch MD [address] [place] [phone] Phone: tel: fax: [facility] CC Radiation [address] [address] Phone: tel: fax: Referral ID Status Reason Start Date Expiration Date V isits Requested Visits Authorized [id number] Closed Specialty Services Required 01/10/2024 07/11/2025 1 1 Scheduling Instructions SD f/u Cris (MedOnc &/or RadOnc) * Consultation (Routine) - Closed Specialty Diagnoses / Procedures Referred By Contac t Referred To Contact Oncology / Hematology and Oncology Diagnoses 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) Aris Lynch MD [address] [place] [phone] Phone: tel: fax: [facility] Neck [facility] [address] [facility], [address] [place] [address] Phone: tel: fax: Referral ID Status Reason Start Date Expiration Date V isits Requested Visits Authorized [id number] Closed Specialty Services Required 01/10/2024 07/11/2025 1 1 Scheduling Instructions SD f/u Cris (MedOnc &/or RadOnc) Reason for Visit * Reason Comments Follow-up Encounter Details Date Type Department Care Team ([facility] Contact Info) Description 01/10/2024 9:20 AM EDT Office Visit [facility] [address] [facility] [place] [phone] Aris Lynch MD [address] [facility] [address] [place] [phone] 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); 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) Social History Tobacco Use Types Packs/Day Years Used Date Smoking Tobacco: Every Day Cigarettes 1 70.9 Started: 1952 Smokeless Tobacco: Never Tobacco Cessation:Ready to Q uit: No; Counseling Given: No Comments:Trying to quit Alcohol Use Standard Drinks/Week Comments Never 0 (1 standard drink = 0.6 oz pur e alcohol) Sex and Gender Information Value Date Recorded Sex Assigned at Not on file Legal Sex Male 8:37 PM EDT Gender Identity Not on file Sexual Orientation Not on file documented as of this encounter Last Filed Vital Signs Vital Sign Reading Time Taken Comments Blood Pressure 108/70 01/10/2024 8:51 AM EDT Pulse 71 01/10/2024 8:51 AM EDT Temperature - - Respiratory Rate 18 01/10/2024 8:51 AM EDT Oxygen Saturation 99% 01/10/2024 8:51 AM EDT Inhaled Oxygen Concentration - - Weight 77.5 kg (170 lb 13.7 oz) 01/10/2024 8:51 AM EDT Height - - Body Mass Index 22.55 12/30/2023 12:47 PM EST documented in this encounter Miscellaneous Notes * Progress Notes - Aris Lynch MD - 01/10/2024 9:20 AM EDT Dear Drew Howell MD, I had the pleasure of seeing Mr. Vamsi Mallory in my Head and Neck clinic at the [facility]. As you know, Mr. Vamsi Mallory is a very pleasant 78 y.o. patient who was kindly sent to my clinic in consultation for evaluation and management of his squamous cell carcinoma larynx. Seven 8-year-old male presenting with a month history of 125 lb weight loss, and progressing odynophagia and dysphagia. Positive left otalgia. Denies shortness of breath except with long walks. Has a4-5 pack per day smoking history for 70 years. Has a history of a CABG, defibrillator, diabetes mellitus, COPD. Denies blood thinners other than aspirin. Has allergy to penicillins. The patient denied , otorrhea, hearing loss, vertigo or tinnitus. He denied having sinonasal symptoms, postnasal drip, epistaxis, nasal congestion/obstruction or anosmia/hyposmia. He also denied dyspepsia, dyspnea or reflux disease. 12/29/2023: The patient presents to clinic today to discuss PET/CT results. Unfortunately, this demonstrates findings concerning for pulmonary metastatic disease. He denies any worsening dyspnea in clinic today. 01/10/2024: Patient presents back to clinic for follow up. EBUS results demonstrate SCCa. He notes improvement in breathing and swallowing following tumor debulking. The patient's complete review of system from 01/10/24 was performed today. All systems were negative except for those mentioned in the HPI. Radiographs: - CT scan of the neck: . 11/24/23: T4a laryngeal mass demonstrated - CT scan of the chest: IMPRESSION: 1. A 0.8 cm left upper lobe nodule and 3.2 cm left adrenal nodule are indeterminate. Metastatic disease is not excluded. Mildly prominent mediastinal and right hilar lymph nodes. - PET CT scan: Impression 1. Supraglottic mass consistent with the patient's known primary malignancy. Parotid hypermetabolism and hypermetabolic cervical lymph nodes are likely metastatic. 2. Pulmonary metastatic disease. 3. Indeterminate left adrenal nodule. - Ultrasound of the thyroid: . N/A I independently reviewed the images and discussed them with the patient. I do agree with the interpretation. Surgeries: - DL Biposy/Tumor Debulking (12/31/23) in coordiation with Dr. Gillette whom performed EBUS for biopsy of pulmonary lesion Pathology: -12/02/23: Larynx, biopsy, left mass: Invasive squamous cell carcinoma, well to moderately differentiated US guided FNA of parotid demonstrates Warthin's tumor 12/31/2023: Final Diagnosis A. LARYNGEAL MASS, BIOPSY: - MODERATELY DIFFERENTIATED SQUAMOUS CELL CARCINOMA. B. LUNG, RIGHT UPPER LOBE, BIOPSY: - MODERATELY DIFFERENTIATED SQUAMOUS CELL CARCINOMA. C. LUNG, RIGHT LOWER LOBE, BIOPSY: - MODERATELY DIFFERENTIATED SQUAMOUS CELL CARCINOMA. at 1234 Comment It is noted that the patient has a laryngeal mass with concern for pulmonary/mediastinal metastases. All biopsies show keratinizing squamous cell carcinoma and have morphologic similarities. There isno way to morphologically or immunohistochemically differentiate a laryngeal metastasis from a primary pulmonary squamous cell carcinoma. Clinical and radiologic correlation is necessary. Tumor Board recommendations: - None Allergies: Allergies Allergen Reactions Penicillins Hives and Rash Past medical history: As in history of present illness Past Medical History: Diagnosis Date Allergies Arthritis Depression Heartburn Old myocardial infarction History of myocardial infarction Personal history of other diseases of the circulatory system History of hypertension Personal history of other diseases of the respiratory system Personal history of asthma Personal history of other endocrine, nutritional and metabolic disease History of diabetes mellitus Personal history of other endocrine, nutritional and metabolic disease History of hyperlipidemia Personal history of pneumonia (recurrent) History of pneumonia Shortness of breath Sinus problem Past surgical history: [] Past Surgical History: Procedure Laterality Date CARDIAC PACEMAKER PLACEMENT CORONARY ARTERY BYPASS GRAFT N/A CABG (CABG) from [facility] KNEE SURGERY N/A Knee Surgery from [facility] LARYNGOSCOPY SHOULDER SURGERY N/A Shoulder Surgery from [facility] Family history: reviewed and noncontributory Family History Problem Relation Name Age of Onset Diabetes Mother Heart attack Mother Gout Father Conversions - Other Sister Accident Conversions - Other Brother Accident Arthritis Other Conversions - Other Other herpes zoster infection Other cancer Other Anesthesia problems Neg Hx Malig Hyperthermia Neg Hx Social history: The patient has been smoking [] pack/day for [] years and has a [] pack/year history, does not drink or use any illicit drugs. Social Determinants of Health Food Insecurity: Not on file Alcohol Use: Not on file Housing Stability: Not on file Tobacco Use: High Risk (01/10/2024) Patient History Smoking Tobacco Use: Every Day Smokeless Tobacco Use: Never Passive Exposure: Not on file Transportation Needs: Not on file Depression: Not on file Utilities: Not on file Stress: Not on file Intimate Partner Violence: Not on file Physical Activity: Not on file Social Connections: Not on file Financial Resource Strain: Not on file PHYSICAL EXAMINATION: Visit Vitals BP 108/70 (BP Location: Right arm) Pulse 71 Wt 77.5 kg (170 lb 13.7 oz) SpO2 99% BMI 22.55 kg/m?? General: alert and oriented x3; no acute distress Psychiatric evaluation: Normal mood and affect; pleasant and cooperative. Nasal cavity examination: No visible polyps, masses, or purulence Oral cavity examination: The buccal mucosa, lips, gingiva, retromolar trigone, alveolar ridge, floor of mouth, tongue and palate unremarkable. No visible mass lesions. Oropharynx: Tonsils are unremarkable bilaterally. Neck: Supple; bilateral level 2 lymphadenopathy Eyes: Extraocular movements are intact bilaterally. Neurological examination: Cranial nerves II-XII are grossly intact. Skin of the neck and face: no evidence of significant rashes, suspicious appearing nevi or other concerning lesions. Endocrine examination: No palpable thyroid nodules or thyromegaly. Respiratory: No increased work of breathing, dyspnea, or use of accessory muscles of respiration PROCEDURE PERFORMED: Fiberoptic Flexible Laryngoscopy (performed on 12/08/23) INDICATION: Larynx cancer DESCRIPTION OF PROCEDURE: After getting the verbal consent, I sprayed bilateral nasal cavities with lidocaine 4% and Wilbur-Synephrine 1/100,000. I examined both nasal after obtaining adequate decongestion. Septum is deviated to the left. Sinonasal cavities: Clear without any suspicious lesions. No pus or polyps. Nasopharynx was clean without any suspicious lesions. Fossae of Rosenmuller: Clear bilaterally without any lesions. Base of tongue was normal. Vallecula is symmetrical without any suspicious lesions. Hypopharynx: no suspicious lesions are noted. Pyriform sinuses, post-cricoid, lateral pharyngeal dean, posterior pharyngeal wall: are unremarkable. Endolarynx with left supraglottic larynx mass with transglottic extension, and fixed left vocal fold. Posterior pharyngeal wall and hypopharynx are be drained with the uninvolved. IMPRESSION: [id number] supraglottic squamous cell carcinoma with 3.2cm adrenal mass and elevated plasma normetanephrines (plasma metanephrines normal). Given these findings dotetate PET has been ordered to assess for presence of functional paraganglioma. Given presence of metastatic pulmonary disease, the patientis a poor candidate for primary laryngectomy, which was discussed with the patient at length in clinic today. We will place medical oncology and radiation oncology referrals today, and have the patient added to the tumor board schedule for next week. He will follow up with me next week after completion of dotetate PET/CT and tumor board discussion. I discussed those findings with the patient and I answered his questions to the best of my ability.He verbalized understanding and agreement with the plan. I independently reviewed all the records available to me and summarized my findings in this note. *Digital speech recognition software was used to dictate this note and, despite all efforts to proofread, some dictation errors may occur. If you have any questions, please do not hesitate to contactme. 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) Expected: 01/24/2024, Expires: 07/12/2025 Ambulatory referral to Radiation Oncology Outpatient Referral Routine 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) Expected: 01/24/2024 (Approximate), Expires: 07/12/2025 documented as of this encounter Visit Diagnoses Diagnosis 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)- Primary Malignant neoplasm of supraglottis 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) documented in this encounter Additional Health Concerns Assessment Noted Time A fall risk assessment has been complete d for the patient 01/10/2024 8:52 AM EDT A Body Mass Index follow-up plan has been documented for the patient 01/01/2024 10:12 AM EST documented as of this encounter Care Teams Topographical Field Assistant Relationship Specialty Start Date End Date Drew Howell MD [address] [place] [address] PCP - General 12/23/23 Efrain Sarah MD [address] [place] [address] 12/02/23 Aris Lynch MD [address] [place] [phone] Surgeon Otolaryngology 12/02/23 documented as of this encounter
--- OUTSIDE RECORDS SUMMARY | 2024-10-04 19:04 | XMS_ITS | Encounter Summary ---
Author Organization [facility] Address [address] [place] [address] Care Team Providers Care Human Resources Specialist Name Role Phone Unavailable Primary Care Provider Unavailabl e Encounter Details Date Type Department Care Team (Latest Contact Info) Description 12/01/2023 Travel Social History Tobacco Use Types Packs/Day Years [...] Date Luis rded Speak language other than Mongolian at home Not on file 12/01/2023 Want [...] on file documented as of this encounter Visit Diagnoses Not on filedocumented in this encounter
--- OUTSIDE RECORDS SUMMARY | 2024-10-04 19:04 | XMS_ITS | Encounter Summary ---
Author Organization [facility] Address [address] [place], [place] [id number] Care Team Providers Care Repairer Auto Clocks Name Role Phone Efrain Sarah MD Unavailable [phone] Aris Lynch MD Unavailable [phone] Drew Howell MD Primary Care Provider [phone] Toñito Huerta MD Unavailable [phone] Encounter Details Date Type Department Care Team (Late st Contact Info) Description 02/21/2024 Lab Requisition [facility] [address] [place] [address] Drea Loera MD [address] [place] [phone] Malignant neoplasm of larynx, unspecified (CMS/HCC) Social History Tobacco Use Types Packs/Day [...] Procedure Name Priority Date/Time Associated Diagnosis Comments AP MISCELLANEOUS LAB TEST (SO) Routine 02/21/2024 12:00 AM EDT Malignant neoplasm of larynx, unspecified (CMS/HCC) documented in this encounter Results * - AP Miscellaneous Test (02/21/2024 12:00 AM EDT) Test name xT Torsten, TOMA1-Tempu antonio 03/08/2024 1:03 PM EDT [facility] Comment:[id number] Test Result see scan 03/08/2024 1:03 PM EDT [facility] See Scanned Result 03/08/2024 1:03 PM EDT [facility] Tissue 02/21/2024 02/21/2024 9:5 3 AM EDT us Drea Loera MD LAB REF LAB BLOOD AND FLUID OR D Final Result [facility] [address] [place] [address] documented in this encounter Visit Diagnoses Diagnosis Malignant neoplasm of larynx, unspecified (CMS/HCC) documented in this encounter Additional Health Concerns Assessment Noted Time A fall risk assessment has been complete d for the patient 01/19/2024 10:49 AM EDT A Body Mass Index follow-up plan has been documented for the patient 01/01/2024 10:12 AM EST documented as of this encounter Care Teams Repairer Auto Clocks Relationship Specialty Start Date End Date Drew Howell MD [address] [place] [phone] PCP - General 12/23/23 Efrain Sarah MD [address] [place] [address] 12/02/23 Aris Lynch MD [address] [facility] [address] [phone] Surgeon Otolaryngology 12/02/23 Toñito Huerta MD [address] [place] [phone] Consulting Physician Medical Oncology 01/18/24 documented as of this encounter
--- OUTSIDE RECORDS SUMMARY | 2024-10-04 19:04 | XMS_ITS | Encounter Summary ---
Author Organization [facility] Address [address] [place], [place] [id number] Care Team Providers Care Septic Technician Name Role Phone Efrain Sarah MD Unavailable [phone] Aris Lynch MD Unavailable [phone] Drew Howell MD Primary Care Provider [phone] Encounter Details Date Type Department Care Team (Late st Contact Info) Description 01/10/2024 Telephone [facility] Radiation [id number] [place] [phone] Js Morelos MD [address] [place] [address] [place] [address] Social History Tobacco Use Types Packs/Day Years [...] on file documented as of this encounter Miscellaneous Notes * Telephone Encounter - Abhilash Dodd - 01/10/2024 10:27 AM EDT Called and set up cosnult for next Wed, 01/18 @10:[address] Morelos. Patient confirmed appt and asked that reminder be mailed. documented in this encounter Plan of Treatment Not on file documented as of this encounter Visit Diagnoses Not on filedocumented in this encounter Additional Health Concerns Assessment Noted Time A fall risk assessment has been complete d for the patient 01/10/2024 8:52 AM EDT A Body Mass Index follow-up plan has been documented for the patient 01/01/2024 10:12 AM EST documented as of this encounter Care Teams Septic Technician Relationship Specialty Start Date End Date Drew Howell MD [address] [place], [place] [phone] PCP - General 12/23/23 Efrain Sarah MD [address] [place] [address] 12/02/23 Aris Lynch MD [address] [place] [phone] Surgeon Otolaryngology 12/02/23 documented as of this encounter
--- OUTSIDE RECORDS SUMMARY | 2024-10-04 19:04 | XMS_ITS | Encounter Summary ---
Author Organization [facility] Address [address] [place] [address] Care Team Providers Care Paper Cone Machine Tender Name Role Phone Efrain Sarah MD Unavailable [phone] Aris Lynch MD Unavailable [phone] Drew Howell MD Primary Care Provider [phone] Encounter Details Date Type Department Care Team (Latest Contact Info) Description 01/12/2024 Travel Social History Tobacco Use Types Packs/Day [...] documented as of this encounter Care Teams Paper Cone Machine Tender Relationship Specialty Start Date End Date Drew Howell MD [address] [place] [address] PCP - General 12/23/23 Efrain Sarah MD [address] [place] [address] 12/02/23 Aris Lynch MD [address] [place] [address] [phone] Surgeon Otolaryngology 12/02/23 documented as of this encounter
--- OUTSIDE RECORDS SUMMARY | 2024-10-04 19:04 | XMS_ITS | Encounter Summary ---
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) Aris Lynch MD 800 [facility] [address] [address] Phone: tel: fax: [facility] [address] [facility], [address]nd [place] [address] Phone: tel: fax: Referral ID Status Reason Start Date Expiration Date V isits Requested Visits Authorized [id number] Closed Specialty Services Required 01/10/2024 07/11/2025 1 1 Encounter Details Date Type Department Care Team ([facility] st Contact Info) Description 01/19/2024 9:00 AM EDT Consult [facility] Res[facility] [address] [facility], [address]nd [place] [address] Toñito Huerta MD [address] [phone] Tobacco use disorder (Primary Dx); 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) Social History Tobacco Use Types Packs/Day [...] Sign Reading Time Taken Comments Blood Pressure 85/56 01/19/2024 8:34 AM EDT Pulse 69 01/19/2024 8:34 AM EDT Temperature 35.7 ??C (96.3 ??F) 01/19/2024 8:34 AM ED T Respiratory Rate 16 01/19/2024 8:34 AM EDT Oxygen Saturation 93% 01/19/2024 8:34 AM EDT Inhaled Oxygen Concentration - - Weight 74.6 kg (164 lb 7.4 oz) 01/19/2024 8:34 A M EDT Height 185.4 cm (6' 0.99 ) 01/19/2024 8:34 AM ED T Body Mass Index 21.7 01/19/2024 8:34 AM EDT documented in this encounter Miscellaneous Notes * Progress Notes - Toñito Huerta MD - 01/19/2024 9:00 AM EDT Patient ID: Vamsi Mallory is a 78 y.o. male. 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 Presented with 125 pound weight loss with odynophagia and dysphagia. 11/24/23 CT T4a laryngeal mass 12/08/23 laryngoscopy left supraglottic larynx mass squamous right upper a 12/22/23: PET/CT Supraglottic mass parotid hypermetabolism cervical lymph nodes and lung metastatic disease. 12/31/23 EBUS 2 right lung lesions squamous. Same day, debulking under care of Dr. Lynch. 01/12/24 PET/CT Dotatate adrenal mass negative ROS Normal energy, normal appetite, no GARCIA coughing clear phlegm, manages some PO and supplements with 2 cans per PEG, no nausea, no vomiting, no light headedness, no fever, no diarhea/constipation, no new rash, no new joint aches, no nocturia, no fever, mood normal, all remaining 14 point ROS negative. PMH: CABNG, debribillator, DM, COPD. Allgery to [facility] FH: sister throat cancer SH: smokes 4 packs/day Physical Exam: Vital Signs for this encounter: BSA: 1.96 meters squared Visit Vitals BP 85/56 (BP Location: Left arm) Pulse 69 Temp 35.7 ??C (96.3 ??F) (Axillary) Resp 16 Ht 1.854 m (6' 0.99 ) Wt 74.6 kg (164 lb 7.4 oz) SpO2 93% BMI 21.70 kg/m?? Smoking Status Every Day BSA 1.96 m?? Alert and no acute distress Got onto gurney unassisted. PERRL, EOMI Mucus membranes moist, no thrush No palpable neck lymphadenopathy Resp: Expiratory shorter than inspiratory, no wheezes or rhonchi Heart: regular rate and rhythm, no murmurs Abd: soft nontender, bowl sounds normal Lower extermities without edema Neuro: grossly normal Skin: no rash Results: WBC Count (10*3/uL) Date/Time Value 01/19/2024 0847 9.36 12/08/2023 1008 11.06 (H) HGB (g/dL) Date/Time Value 01/19/2024 0847 12.1 (L) 12/08/2023 1008 13.7 Platelet Count (10*3/uL) Date/Time Value 01/19/2024 0847 165 12/08/2023 1008 222 Creatinine, Plasma (mg/dL) Date/Time Value 01/19/2024 0847 0.86 12/08/2023 1008 0.96 BUN, Plasma (mg/dL) Date/Time Value 01/19/2024 0847 17 12/08/2023 1008 16 Sodium, Plasma (mmol/L) Date/Time Value 01/19/2024 0847 137 12/08/2023 1008 139 Potassium, Plasma (mmol/L) Date/Time Value 01/19/2024 0847 4.2 12/08/2023 1008 4.4 Chloride, Plasma (mmol/L) Date/Time Value 01/19/2024 0847 100 12/08/2023 1008 100 AST, Plasma (U/L) Date/Time Value 01/19/2024 0847 16 12/08/2023 1008 16 ALT, Plasma (U/L) Date/Time Value 01/19/2024 0847 19 12/08/2023 1008 14 A/P 78 yo man squamous supraglottic CA metastastic to lung with plan for palliative xrt to larynx and systemic therapy for metastases. This will be near home. To get palliative xrt to larynx. Plans systemic therapy and radiation near home. Smoking to further address near home. 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) Malignant neoplasm of supraglottis documented in this encounter Additional Health Concerns Assessment Noted Time A fall risk assessment has been complete d for the patient 01/19/2024 10:49 AM EDT A Body Mass Index follow-up plan has been documented for the patient 01/01/2024 10:12 AM EST documented as of this encounter Care Teams Corporate Concierge Relationship Specialty Start Date End Date Drew Howell MD [address] [place] [address] PCP - General 12/23/23 Efrain Saarh MD [address] [place] [address] 12/02/23 Aris Lynch MD [address] [phone] Surgeon Otolaryngology 12/02/23 Toñito Huerta MD [address] [place] [phone] Consulting Physician Medical Oncology 01/18/24 documented as of this encounter
--- OUTSIDE RECORDS SUMMARY | 2024-10-04 19:04 | XMS_ITS | Clinical Summary ---
Author Organization [facility] Address [address] [id number] Care Team Providers Care Title I Coordinator Name Role Phone Efrain Sarah MD Unavailable [phone] Aris Lynch MD Unavailable [phone] Drew Howell MD Primary Care Provider [phone] Toñito Huerta MD Unavailable [phone] Allergies Active Allergy Reactions Criticality Noted Date Comments Penicillins Hives,Rash High 11/23/2005 Medications aspirin 81 MG EC tablet Take 1 tablet (81 mg) by mouth 1 (one) time each day. Active spironolactone (Aldactone) 25 MG tablet Take 1 tablet (25 mg) by mouth 1 (one) time each day. 3 Active tamsulosin (Flomax) 0.4 MG 24 hr capsule Take 1 capsule (0.4 mg) by mouth 1 (one) time each day. Active oxyCODONE (Roxicodone) 5 MG immediate release tablet 1 tablet (5 mg) by Per G Tube route every 6 (six) hours if needed for severe pain. 12 tablet 4 Active albuterol 108 (90 Base) MCG/ACT inhaler Inhale 2 puffs every 6 (six) hours if needed for wheezing or shortness of breath. Active atorvastatin (Lipitor) 80 MG tablet Take 1 tablet (80 mg) by mouth 1 (one) time each day. Active cetirizine (ZyrTEC) 10 MG tablet Take 1 tablet (10 mg) by mouth 1 (one) time each day. Active cholecalciferol (Vitamin D-3) 50 MCG (2000 UT) capsule Take 1 capsule (2,000 Units) by mouth 1 (one) time each day. Active digoxin (Lanoxin) 125 MCG tablet Take 1 tablet (125 mcg) by mouth 1 (one) time each day. Active dulaglutide (Trulicity) 1.5 MG/0.5ML solution pen-injector inj. pen Inject 1.5 mg under the skin 1 (one) time per week. Sundays Active empagliflozin (Jardiance) 25 MG Take 1 tablet (25 mg) by mouth 1 (one) time each day. Active furosemide (Lasix) 40 MG tablet Take 1 tablet (40 mg) by mouth every other day. Active losartan (Cozaar) 50 MG tablet Take 1 tablet (50 mg) by mouth 1 (one) time each day. Active metFORMIN XR (Glucophage-XR) 750 MG 24 hr tablet Take 1 tablet (750 mg) by mouth 2 (two) times a day. Do not crush, chew, or split. Active metoprolol succinate XL (Toprol-XL) 100 MG 24 hr tablet Take 1 tablet (100 mg) by mouth 1 (one) time each day. Do not crush or chew. Active pantoprazole (Protonix) 40 MG EC tablet Take 1 tablet (40 mg) by mouth 1 (one) time each day. Do not crush, chew, or split. Active cyanocobalamin 1000 MCG tablet Take 1 tablet (1,000 mcg) by mouth 1 (one) time each day. Active Eliquis 5 MG tablet Take 1 tablet (5 mg) by mouth 2 (two) times a day. May resume taking on 01/03/24. 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 01/04/2024 Immunizations Name Administration Dates Next Due Influenza, seasonal, injectable 11/01/2013,11/01 Pneumococcal Polysaccharide PPV23 11/01/2013,11/2012 Family History Medical History Relation Name Comments Conversions - Other Brother Accident Gout Father Diabetes Mother Heart attack Mother Arthritis Other 1 Conversions - Other Other 2 herpes z tiago infection Other cancer Other 3 Conversions - Other Sister Accident Anesthesia problems Neg Hx Malig Hyperthermia Neg Hx Relation Name Status Comments Brother Father Mother Other 1 Other 2 Other 3 Sister Social History Tobacco Use Types Packs/Day Years Used Date Smoking Tobacco: Every Day Cigarettes 1 70.9 Started: 1952 Smokeless Tobacco: Never Tobacco Cessation:Ready to Q uit: Not Asked; Counseling Given: Not Answered Comments:Trying to quit Alcohol Use Standard Drinks/Week Comments Never 0 (1 standard drink = 0.6 oz pur e alcohol) Sex and Gender Information Value Date Recorded Sex Assigned at Not on file Legal Sex Male 8:37 PM EDT Gender Identity Not on file Sexual Orientation Not on file Last Filed Vital Signs Vital Sign Reading Time Taken Comments Blood Pressure 102/60 01/19/2024 10:47 AM EDT Pulse 70 01/19/2024 10:47 AM EDT Temperature 35.7 ??C (96.3 ??F) 01/19/2024 8:34 AM ED T Respiratory Rate 16 01/19/2024 10:47 AM EDT Oxygen Saturation 94% 01/19/2024 10:47 AM EDT Inhaled Oxygen Concentration - - Weight 75.9 kg (167 lb 5.3 oz) 01/19/2024 10:47 AM EDT Height 185.4 cm (6' 1 ) 01/19/2024 10:47 AM EDT Body Mass Index 22.08 01/19/2024 10:47 AM EDT Plan of Treatment Health Maintenance Due Date Last Done Comments [facility]-Depression Screening 1946 [facility]-Diabetes: Hemoglobin A1C 1946 [facility]-Hepatitis C Screening 1946 [facility]-Medicare Annual Wellness (AWV) 1946 [facility]-/Child/Adol SDOH Screenings 1946 Diabetes: Dental Exam 1956 [facility]- SDOH Screenings 1964 [facility]-Adult SDOH Screenings 1964 [facility]-DTaP,Tdap,and Td Vaccines (1 - Tdap) 1965 [facility]-Zoster Vaccines (1 of 2) 1965 [facility]-Pneumococcal Vaccine: 65+ Years (3 of 3 - PCV) 11/01/2014 11/01/2013, 11/01/2012 [id number] Vaccine (2 - Chyna risk series) 07/16/2021 06/18/2021 [facility]-RSV Vaccine: 60+ Years or (1 - 1-dose 75+ series) 2021 [facility]-Influenza Vaccine (#1) 07/02/202411/01, 11/01/2012, 09/14/2009 [facility]-Lung Cancer Screening Discontinued 12/08/2023 [facility]-HIB Vaccines Aged Out No longer e ligible based on patient's age to complete this topic [facility]-HPV Vaccines Aged Out No longer e ligible based on patient's age to complete this topic [facility]-Hepatitis A Vaccines Aged Out No longer eligible based on patient's age to complete this topic [facility]-IPV Vaccines Aged Out No longer e ligible based on patient's age to complete this topic [facility]-Rotavirus Vaccines Aged Out No lo nger eligible based on patient's age to complete this topic Procedures Procedure Name Priority Date/Time Associated Diagnosis Comments CT CHEST W IV CONTRAST Routine 12/08/2023 11:54 AM EST 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) from Last 3 Months or Most Recently Relevant to Health Maintenance Results * CT Chest w IV Contrast (12/08/2023 11:54 AM EST) Anatomical Region Laterality Modality Chest Computed Tomogra phy Impressions 12/08/2023 1:10 PM EST 1. A 0.8 cm left upper lobe nodule and 3.2 cm left adrenal nodule are indeterminate. Metastatic disease is not excluded. Mildly prominent mediastinal and right hilar lymph nodes. CRITICAL RESULT: ?? No. COMMUNICATION: Per this written report. Drafted by Jr Massey MD on 12/08/2023 1:03 PM Final report signed by Jr Massey MD on 12/08/2023 1:10 PM Narrative 12/08/2023 1:10 PM EST CLINICAL INDICATION: Head/neck cancer, staging TECHNIQUE: Imaging of the chest was performed, from thoracic inlet through upper abdomen, using spiral technique, following administration of IV contrast, Omnipaque 300, 100 mL according [address] Chest protocol. Total DLP (Dose-Length Product): 259.79 mGy.cm. Please note: The reported value represents the total of one or more individual components during the CT acquisition on this date and at this time, and as such, the same value may appear in more than one CT report depending on the interpreting/reporting physicians. COMPARISON: None. FINDINGS: Chest: Aorta/Vessels: The thoracic aorta and coronary arteries are atherosclerotic. No large central filling defect within the pulmonary arteries to suggest pulmonary embolism. Pleural/Pericardial Space: No pneumothorax. No sizable pleural effusions. Bilateral lower lobe pleural thickening No pericardial effusion. Lymph Nodes: Mild prominent 1.4 cm precarinal and 1.3 cm right hilar lymph nodes. Additional smaller mediastinal lymph nodes are also seen. Lungs: Bilateral upper lobe predominant emphysema with biapical pleural parenchymal thickening. Pleural thickening with mucous plugging predominantly in the left lower lobe. Indeterminate 0.8 cm left upper lobe nodule (series 2 image 58). Scarring in the lung bases with likely mild fibrosis. Cluster of punctate nodules and peribronchial nodularities in the right upper lobe. Mediastinum: Otherwise unremarkable. Bones: Degenerative change in the spine and shoulders. Median sternotomy wires. Upper Abdomen: Indeterminate 3.2 cm left adrenal nodule. Procedure Note Jr Massey MD - 12/08/2023 CLINICAL INDICATION: Head/neck cancer, staging TECHNIQUE: Imaging of the chest was performed, from thoracic inlet through upperabdomen, using spiral technique, following administration of IV contrast,Omnipaque 300, 100 mL according to the CT Chest protocol. Total DLP (Dose-Length Product): 259.79 mGy.cm. Please note: The reportedvalue represents the total of one or more individual components during theCT acquisition on this date and at this time, and as such, the same valuemay appear in more than one CT report depending on theinterpreting/reporting physicians. COMPARISON: None. FINDINGS: Chest: Aorta/Vessels: The thoracic aorta and coronary arteries areatherosclerotic. No large central filling defect within the pulmonaryarteries to suggest pulmonary embolism. Pleural/Pericardial Space: No pneumothorax. No sizable pleural effusions.Bilateral lower lobe pleural thickening No pericardial effusion. Lymph Nodes: Mild prominent 1.4 cm precarinal and 1.3 cm right hilar lymphnodes. Additional smaller mediastinal lymph nodes are also seen. Lungs: Bilateral upper lobe predominant emphysema with biapical pleuralparenchymal thickening. Pleural thickening with mucous pluggingpredominantly in the left lower lobe. Indeterminate 0.8 cm left upper lobenodule (series 2 image 58). Scarring in the lung bases with likely mildfibrosis. Cluster of punctate nodules and peribronchial nodularities inthe right upper lobe. Mediastinum: Otherwise unremarkable. Bones: Degenerative change in the spine and shoulders. Median sternotomywires. Upper Abdomen: Indeterminate 3.2 cm left adrenal nodule. IMPRESSION: 1. A 0.8 cm left upper lobe nodule and 3.2 cm left adrenal nodule areindeterminate. Metastatic disease is not excluded. Mildly prominentmediastinal and right hilar lymph nodes. CRITICAL RESULT: No. COMMUNICATION: Per this written report. Drafted by Jr Massey MD on 12/08/2023 1:03 PM Final report signed by Jr Massey MD on 12/08/2023 1:10 PM Aris Lynch MD IMG CT PROCEDURES Final Result from Last 3 Months or Most Recently Relevant to Health Maintenance Insurance MEDICAID [facility] MEDICARE Care Teams Title I Coordinator Relationship Specialty Start Date End Date Drew Howell MD [address] [place] [address] PCP - General 12/23/23 Efrain Sarah MD [address] [place] [address] 12/02/23 Aris Lynch MD 800 [facility] [address] [phone] Surgeon Otolaryngology 12/02/23 Toñito Huerta MD [address] [place] [phone] Consulting Physician Medical Oncology 01/18/24
--- OUTSIDE RECORDS SUMMARY | 2024-10-04 19:04 | XMS_ITS | Encounter Summary ---
Author Organization [facility] Address [address] [place] [address] Care Team Providers Care Retirement Sales Consultant Name Role Phone Efrain Sarah MD Unavailable [phone] Aris Lynch MD Unavailable [phone] Drew Howell MD Primary Care Provider [phone] Toñito Huerta MD Unavailable [phone] Reason for Visit * Reason Comments Labs Peripheral stick RA Encounter Details Date Type Department Care Team (Latest Contact Info) Description 01/19/2024 9:15 AM EDT Clinical Support Pav CC Head, Neck & Respiratory [address] , [address] [place] [address] 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) [...] Procedure Name Priority Date/Time Associated Diagnosis Comments CBC WITH AUTO DIFFERENTIAL Routine 01/19/2024 8:47 AM EDT 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) TSH Routine 01/19/2024 8:47 AM EDT 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) COMPREHENSIVE METABOLIC PANEL, PLASMA Routine 01/19/2024 8:47 AM EDT 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) documented in this encounter Results * Thyroid Stimulating Hormone, Plasma (TSH) (01/19/2024 8:47 AM EDT) Thyroid Stimulating Hormone, Plasma 1.19 0.40 - 4.20 uIU/mL 01/19/2024 9:33 AM EDT [facility] Blood Venous blood specimen / Unknown Venipuncture / Unknown 01/19/2024 8:47 AM EDT 01/19/2024 8:57 AM EDT us Toñito Huerta MD LAB BLOOD ORDERABLES Final Res ult Performing Organization Address City/State/[facility] Co de Phone Number [facility] [address] [place] [phone] * (ABNORMAL) CBC and Differential (01/19/2024 8:47 AM EDT) WBC Count 9.36 3.70 - 10.30 10*3/uL LAB HEMATOLOGY METHOD 01/19/2024 9:06 AM EDT [facility] RBC Count 4.10(L) 4.60 - 6.10 10*6/uL LAB HEMATOLOGY METHOD 01/19/2024 9:06 AM EDT [facility] HGB 12.1(L) 13.7 - 17.5 g/dL LAB HEMATOLOGY METHOD 01/19/2024 9:06 AM EDT [facility] HCT 37.4(L) 40.0 - 51.0 % LAB HEMATOLOGY METHOD 01/19/2024 9:06 AM EDT [facility] Platelet Count 165 155 - 369 10*3/uL LAB HEMATOLOGY METHOD 01/19/2024 9:06 AM EDT [facility] MCV 91 79 - 98 fL LAB HEMATOLOGY METHOD 01/19/2024 9:06 AM EDT [facility] MCH 29.5 26.0 - 32.0 pg LAB HEMATOLOGY METHOD 01/19/2024 9:06 AM EDT [facility] MCHC 32.4 30.7 - 35.5 g/dL LAB HEMATOLOGY METHOD 01/19/2024 9:06 AM EDT [facility] RDW 13.4 11.5 - 14.5 % LAB HEMATOLOGY METHOD 01/19/2024 9:06 AM EDT [facility] MPV 10.7 8.8 - 12.5 fL LAB HEMATOLOGY METHOD 01/19/2024 9:06 AM EDT [facility] nRBC 0.0 <=0.0 per 100 WBCs LAB HEMATOLOGY METHOD 01/19/2024 9:06 AM EDT [facility] Differential Type Automated LAB HEMATOLOGY METHOD 01/19/2024 9:06 AM EDT [facility] Neutrophils % 76.0 % LAB HEMATOLOGY METHOD 01/19/2024 9:06 AM EDT [facility] Lymphocytes % 15.0 % LAB HEMATOLOGY METHOD 01/19/2024 9:06 AM EDT [facility] Monocytes % 8.0 % LAB HEMATOLOGY METHOD 01/19/2024 9:06 AM EDT [facility] Eosinophils % 1.0 % LAB HEMATOLOGY METHOD 01/19/2024 9:06 AM EDT [facility] Basophils % 0.0 % LAB HEMATOLOGY METHOD 01/19/2024 9:06 AM EDT [facility] Immature Granulocytes % 0.0 % LAB HEMATOLOGY METHOD 01/19/2024 9:06 AM EDT [facility] Neutrophils Absolute 7.06(H) 1.60 - 6.10 10*3/uL LAB HEMATOLOGY METHOD 01/19/2024 9:06 AM EDT [facility] Lymphocytes Absolute 1.38 1.20 - 3.90 10*3/uL LAB HEMATOLOGY METHOD 01/19/2024 9:06 AM EDT [facility] Monocytes Absolute 0.79 0.30 - 0.90 10*3/uL LAB HEMATOLOGY METHOD 01/19/2024 9:06 AM EDT [facility] Eosinophils Absolute 0.07 0.00 - 0.50 10*3/uL LAB HEMATOLOGY METHOD 01/19/2024 9:06 AM EDT [facility] Basophils Absolute 0.02 0.00 - 0.10 10*3/uL LAB HEMATOLOGY METHOD 01/19/2024 9:06 AM EDT [facility] Immature Granulocytes Absolute 0.04 0.00 - 0.06 10*3/uL LAB HEMATOLOGY METHOD 01/19/2024 9:06 AM EDT [facility] Blood Venous blood specimen / Unknown Venipuncture / Unknown 01/19/2024 8:47 AM EDT 01/19/2024 8:58 AM EDT Narrative [facility] - 01/19/2024 9:06 AM EDT Therapeutic decision making should be based on absolute values, rather than percentages. us Toñito Huerta MD LAB BLOOD ORDERABLES Final Res ult [facility] [address] [place] [phone] * (ABNORMAL) Comprehensive Metabolic Panel, Plasma (01/19/2024 8:47 AM EDT) Glucose, Plasma 161(H) 74 - 99 mg/dL 01/19/2024 9:33 AM EDT [facility] BUN, Plasma 17 8 - 23 mg/dL 01/19/2024 9:33 AM EDT [facility] Creatinine, Plasma 0.86 0.80 - 1.30 mg/dL 01/19/2024 9:33 AM EDT [facility] BUN/Creatinine Ratio 01/19/2024 9:33 AM EDT [facility] Sodium, Plasma 137 136 - 145 mmol/L 01/19/2024 9:33 AM EDT [facility] Potassium, Plasma 4.2 3.7 - 4.8 mmol/L 01/19/2024 9:33 AM EDT [facility] Chloride, Plasma 100 97 - 107 mmol/L 01/19/2024 9:33 AM EDT [facility] CO2, Plasma 27 22 - 29 mmol/L 01/19/2024 9:33 AM EDT [facility] Anion Gap 10 6 - 16 mmol/L 01/19/2024 9:33 AM EDT [facility] Total Calcium, Plasma 8.9 8.9 - 10.2 mg/dL 01/19/2024 9:33 AM EDT [facility] Total Protein 6.9 6.3 - 7.9 g/dL 01/19/2024 9:33 AM EDT [facility] Albumin, Plasma 3.6 3.5 - 5.2 g/dL 01/19/2024 9:33 AM EDT [facility] AST, Plasma 16 10 - 50 U/L 01/19/2024 9:33 AM EDT [facility] ALT, Plasma 19 10 - 50 U/L 01/19/2024 9:33 AM EDT [facility] Alkaline Phosphatase, Plasma 106 40 - 115 U/L 01/19/2024 9:33 AM EDT [facility] Total Bilirubin, Plasma 0.5 0.2 - 1.1 mg/dL 01/19/2024 9:33 AM EDT [facility] eGFRcr 89.2 mL/min/1.7 3m*2 01/19/2024 9:33 AM EDT [facility] Comment:Reported eGFRcr in m L/min/1.73m2 is based the CKD-EPI 2020 equation that does not use a race coefficient. Blood Venous blood specimen / Unknown Venipuncture / Unknown 01/19/2024 8:47 AM EDT 01/19/2024 8:57 AM EDT us Toñito Huerta MD LAB BLOOD ORDERABLES Final Res ult [facility] [address] [place] [address] documented in this encounter Visit Diagnoses Diagnosis 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) Malignant neoplasm of supraglottis documented in this encounter Additional Health Concerns Assessment Noted Time A fall risk assessment has been complete d for the patient 01/19/2024 10:49 AM EDT A Body Mass Index follow-up plan has been documented for the patient 01/01/2024 10:12 AM EST documented as of this encounter Care Teams Retirement Sales Consultant Relationship Specialty Start Date End Date Drew Howell MD [address] [place] [phone] PCP - General 12/23/23 Efrain Sarah MD [address] [place] [address] 12/02/23 Aris Lynch MD [address] [place] [phone] Surgeon Otolaryngology 12/02/23 Toñito Huerta MD [address] [place] [phone] Consulting Physician Medical Oncology 01/18/24 documented as of this encounter
--- OUTSIDE RECORDS SUMMARY | 2024-10-04 19:04 | XMS_ITS | Encounter Summary ---
Author Organization [facility] Address [address] [id number] Care Team Providers Care Facility Planner Name Role Phone Efrain Sarah MD Unavailable [phone] Aris Lynch MD Unavailable [phone] Drew Howell MD Primary Care Provider [phone] Toñito Huerta MD Unavailable [phone] Encounter Details Date Type Department Care Team (Late st Contact Info) Description 02/18/2024 Telephone Pav CC Head, Neck & Respiratory [address] [facility], [address] [place] [phone] Aris Lynch MD [address] [facility] [address] [place] [address] Social History Tobacco Use Types Packs/Day Years [...] encounter Miscellaneous Notes * Telephone Encounter - Camryn Moise - 02/18/2024 11:49 AM EDT Spoke with pt to see if he need to r/s follow up appt. He's currently having treatments done in [place] and just had a scan to see if he could start radiation. He should know that in 5-10 days. Hewanted to wait a few weeks before scheduling to see future treatment plans. I let him know I'd check in with him in a few weeks. documented in this encounter Plan of Treatment [...] documented as of this encounter Care Teams Facility Planner Relationship Specialty Start Date End Date Drew Howell MD [address] [place] [address] PCP - General 12/23/23 Efrain Sarah MD [address] [place] [address] 12/02/23 Aris Lynch MD [address] [facility] [address] [phone] Surgeon Otolaryngology 12/02/23 Toñito Huerta MD [address] [place] [phone] Consulting Physician Medical Oncology 01/18/24 documented as of this encounter
--- OUTSIDE RECORDS SUMMARY | 2024-10-04 19:04 | XMS_ITS | Encounter Summary ---
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.] this encounter Medications at Time of Discharge albuterol 108 (90 Base) MCG/ACT inhaler Inhale 2 puffs every 6 (six) hours if needed for wheezing or shortness of breath. aspirin 81 MG EC tablet Take 1 tablet (81 mg) by mouth 1 (one) time each day. atorvastatin (Lipitor) 80 MG tablet Take 1 tablet (80 mg) by mouth 1 (one) time each day. cetirizine (ZyrTEC) 10 MG tablet Take 1 tablet (10 mg) by mouth 1 (one) time each day. cholecalciferol (Vitamin D-3) 50 MCG (2000 UT) capsule Take 1 capsule (2,000 Units) by mouth 1 (one) time each day. cyanocobalamin 1000 MCG tablet Take 1 tablet (1,000 mcg) by mouth 1 (one) time each day. digoxin (Lanoxin) 125 MCG tablet Take 1 tablet (125 mcg) by mouth 1 (one) time each day. dulaglutide (Trulicity) 1.5 MG/0.5ML solution pen-injector inj. pen Inject 1.5 mg under the skin 1 (one) time per week. Sundays Eliquis 5 MG tablet Take 1 tablet (5 mg) by mouth 2 (two) times a day. May resume taking on 01/03/24. 01/03/2024 empagliflozin (Jardiance) 25 MG Take 1 tablet (25 mg) by mouth 1 (one) time each day. furosemide (Lasix) 40 MG tablet Take 1 tablet (40 mg) by mouth every other day. losartan (Cozaar) 50 MG tablet Take 1 tablet (50 mg) by mouth 1 (one) time each day. metFORMIN XR (Glucophage-XR) 750 MG 24 hr tablet Take 1 tablet (750 mg) by mouth 2 (two) times a day. Do not crush, chew, or split. metoprolol succinate XL (Toprol-XL) 100 MG 24 hr tablet Take 1 tablet (100 mg) by mouth 1 (one) time each day. Do not crush or chew. oxyCODONE (Roxicodone) 5 MG immediate release tablet 1 tablet (5 mg) by Per G Tube route every 6 (six) hours if needed for severe pain. 12 tablet 12/13/2023 pantoprazole (Protonix) 40 MG EC tablet Take 1 tablet (40 mg) by mouth 1 (one) time each day. Do not crush, chew, or split. spironolactone (Aldactone) 25 MG tablet Take 1 tablet (25 mg) by mouth 1 (one) time each day. 10/21/2023 tamsulosin (Flomax) 0.4 MG 24 hr capsule Take 1 capsule (0.4 mg) by mouth 1 (one) time each day. Nutritional Supplements (isosource 1.5 Perry/mL) 250 mL by Per G Tube route 5 (five) times a day. 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 Patient has indeterminate 3.2 cm adrenal mass and elevated plasma normetanephrines. Present study performed to evaluate for possible functional paraganglioma. TECHNIQUE: Preparation: Not on Somatostatin Analogue Therapy. ?? Radiopharmaceutical: 4.3 mCi of Ga-68 dotatate (NETSPOT), a somatostatin analogue (SSA), administered intravenously at right antecubital fossa at 9:49 AM. Incubation interval: 56 minutes. Oral contrast: Not applicable. Positioning: Arms raised. PET/CT scanner: Siemens Biograph 40 mCT. PET/CT acquisition: [id number]. Standardized uptake value (SUV): Corrected for body weight only. CT: Low-dose, [id number], without intravenous contrast. TOTAL DLP (Dose Length Product): 572.05 mGy.cm COMPARISON/CORRELATION: No prior DOTATATE PET/CT available for comparison. Correlated with FDG PET/CT performed at another facility 12/22/2023 where standardized uptake value (SUV) measurements may not be comparable to [facility] SUV measurements due to tumor biology, incubation period, size and location of the lesion, and lean body mass. CT chest with contrast 12/08/2023. Head and Neck: The known recently seen intensely hypermetabolic 4.4 x 1.8 cm left supraglottic laryngeal lobulated soft tissue mass shows only mild heterogenous SSA uptake (series 4, image 92) with maximum SUV 5.6, consistent with biopsy proven squamous cell carcinoma. Previously visualized hypermetabolic nodule within the deep part of the left parotid gland shows intense SSA uptake maximum SUV 6.7 image 68. The other hypermetabolic nodule within the superficial part of the left parotid gland (series 4, image 71) demonstrate no significant SSA uptake Photopenic 32 mm cystic lesion within the right parotid gland likely post biopsy seroma. No suspicious SSA-avid or pathologically enlarged adenopathy. No suspicious SSA-avid intracranial lesions. Layering mucosal debris within the left maxillary sinus. The remaining paranasal sinuses are clear. Unremarkable thyroid gland. Chest: No suspicious SSA avid lesions within the chest. No significant change in size of the previously seen intensely FDG avid solid pulmonary nodules in the right upper lobe measuring 11 mm (series 4, image 130) and superior segment of right lower lobe (image 144), both are non-SSA avid, consistent with biopsy proven squamous cell carcinoma. Multiple small subcentimeter mildly SSA avid lower paratracheal, subcarinal and bilateral hilar lymph nodes, some of which are partially calcified, favors granulomatous inflammatory disease. Examples are: *Focal intense SSA uptake of an enlarged subaortic node measuring 10 mm, similar in size to comparison (series 4, image 129), maximum SUV 6.3. *An additional enlarged low left paratracheal node measuring 10 mm (series 4, image 131) demonstrates focal intense this is a uptake, maximum SUV 6.4. Severe centrilobular emphysema and sequela of prior granulomatous disease. Left basilar scarring/atelectasis is similar to comparison. Normal caliber thoracic aorta. Multivessel coronary atherosclerosis. Left chest wall pacemaker in place with leads intact. No pleural effusion, pericardial effusion or pneumothorax. Abdomen and Pelvis: No significant change in appearance of the questionable homogenously hypoattenuating left adrenal mass measuring 3.3 x 2.5 cm (series 4, image 202) which demonstrates no significant SSA uptake above liver parenchymal background level. Right adrenal gland is unremarkable. Unremarkable liver, gallbladder, spleen, pancrease, and kidneys. No suspicious SSA-avid lesions within the abdomen and pelvis. No suspicious SSA-avid or pathologically enlarged retroperitoneal or pelvic adenopathy. Diffuse physiologic mild to moderate SSA uptake throughout the bowel. Prior gastrostomy tube placement. The small and large bowel are normal in caliber. No suspicious focal peritoneal or mesenteric findings. No ascites. No suspicious SSA-avid pelvic masses. Mild distention of the bladder. Prostatomegaly with small calcifications. Skeleton and Soft Tissues: No suspicious SSA-avid osseous or soft tissue lesions. Multilevel degenerative changes. Focal moderately intense this is a uptake in the right C2-C3 facet joint, likely degenerative changes. IMPRESSION: 1.The questionable left adrenal mass demonstrates no significant SSA uptake. The mass also shows only mild blood pool level FDG uptake in the outside PET/CT study, which makes the diagnosis of paraganglioma/pheochromocytoma les likely, yet if clinically still suspected I-123 MIBG can be considered for further evaluation of the rare situation of non-SSTR expressing Pheochromocytoma/paraganglioma. Otherwise CT/MRI adrenal protocol recommended for further evaluation. 2.The known biopsy proven left supraglottic laryngeal as well as right upper and lower lobe squamous cell carcinoma shows only mild to no SSA uptake, stable in size. 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 CRITICAL RESULT: No. COMMUNICATION: Per this written report. By electronically signing this report, I, the attending physician, attest that I have personally reviewed the images/data for the above examination(s) and agree with the final edited report. Drafted by Wing Meadows M.D. on 01/12/2024 3:33 PM Final report signed by Edith Hicks MD on 01/13/2024 11:25 AM Procedure Note Edith Austin MD - 01/13/2024 CLINICAL INDICATION: 78-year-old male with history of T4 supraglottic laryngeal squamous celllaryngeal carcinoma, initially diagnosed to 12/02/2023, with metastasis tolung. Patient has indeterminate 3.2 cm adrenal mass and elevated plasmanormetanephrines. Present study performed to evaluate for possiblefunctional paraganglioma. TECHNIQUE: Preparation: Not on Somatostatin Analogue Therapy. Radiopharmaceutical: 4.3 mCi of Ga-68 dotatate ([employer]), a somatostatinanalogue (SSA), administered intravenously at right antecubital fossa at9:49 AM. Incubation interval: 56 minutes. Oral contrast: Not applicable. Positioning: Arms raised. PET/CT scanner: Siemens Biograph 40 mCT. PET/CT acquisition: [id number]-[id number]. Standardized uptake value (SUV): Corrected for body weight only. CT: Low-dose, [id number], without intravenous contrast. TOTAL DLP (Dose Length Product): 572.05 mGy.cm COMPARISON/CORRELATION: No prior DOTATATE PET/CT available for comparison. Correlated with FDG PET/CT performed at another facility 12/22/2023 wherestandardized uptake value (SUV) measurements may not be comparable [facility] measurements due to tumor biology, incubation period, size andlocation of the lesion, and lean body mass. CT chest with contrast12/08/2023. Head and Neck: The known recently seen intensely hypermetabolic 4.4 x 1.8 cm leftsupraglottic laryngeal lobulated soft tissue mass shows only mildheterogenous SSA uptake (series 4, image 92) with maximum SUV 5.6,consistent with biopsy proven squamous cell carcinoma. Previously visualized hypermetabolic nodule within the deep part of theleft parotid gland shows intense SSA uptake maximum SUV 6.7 image 68. The other hypermetabolic nodule within the superficial part of the leftparotid gland (series 4, image 71) demonstrate no significant SSA uptake Photopenic 32 mm cystic lesion within the right parotid gland likely postbiopsy seroma. No suspicious SSA-avid or pathologically enlarged adenopathy. No suspicious SSA-avid intracranial lesions. Layering mucosal debris within the left maxillary sinus. The remainingparanasal sinuses are clear. Unremarkable thyroid gland. Chest: No suspicious SSA avid lesions within the chest. No significant change in size of the previously seen intensely FDG avidsolid pulmonary nodules in the right upper lobe measuring 11 mm (series 4,image 130) and superior segment of right lower lobe (image 144), both arenon-SSA avid, consistent with biopsy proven squamous cell carcinoma. Multiple small subcentimeter mildly SSA avid lower paratracheal,subcarinal and bilateral hilar lymph nodes, some of which are partiallycalcified, favors granulomatous inflammatory disease. Examples are: *Focal intense SSA uptake of an enlarged subaortic node measuring 10 mm,similar in size to comparison (series 4, image 129), maximum SUV 6.3. *An additional enlarged low left paratracheal node measuring 10 mm (series4, image 131) demonstrates focal intense this is a uptake, maximum SUV6.4. Severe centrilobular emphysema and sequela of prior granulomatous disease. Left basilar scarring/atelectasis is similar to comparison. Normal caliber thoracic aorta. Multivessel coronary atherosclerosis. Left chest wall pacemaker in place with leads intact. No pleural effusion, pericardial effusion or pneumothorax. Abdomen and Pelvis: No significant change in appearance of the questionable homogenouslyhypoattenuating left adrenal mass measuring 3.3 x 2.5 cm (series 4, [id number]) which demonstrates no significant SSA uptake above liver parenchymalbackground level. Right adrenal gland is unremarkable. Unremarkable liver, gallbladder, spleen, pancrease, and kidneys. No suspicious SSA-avid lesions within the abdomen and pelvis. No suspicious SSA-avid or pathologically enlarged retroperitoneal orpelvic adenopathy. Diffuse physiologic mild to moderate SSA uptake throughout the bowel. Prior gastrostomy tube placement. The small and large bowel are normal in caliber. No suspicious focal peritoneal or mesenteric findings. No ascites. No suspicious SSA-avid pelvic masses. Mild distention of the bladder. Prostatomegaly with small calcifications. Skeleton and Soft Tissues: No suspicious SSA-avid osseous or soft tissue lesions. Multilevel degenerative changes. Focal moderately intense this is a uptake in the right C2-C3 facet joint,likely degenerative changes. IMPRESSION: 1.The questionable left adrenal mass demonstrates no significant SSAuptake. The mass also shows only mild blood pool level FDG uptake in theoutside PET/CT study, which makes the diagnosis ofparaganglioma/pheochromocytoma les likely, yet if clinically stillsuspected I-123 MIBG can be considered for further evaluation of the raresituation of non-SSTR expressing Pheochromocytoma/paraganglioma. OtherwiseCT/MRI adrenal protocol recommended for further evaluation. 2.The known biopsy proven left supraglottic laryngeal as well as rightupper and lower lobe squamous cell carcinoma shows only mild to no SSAuptake, stable in size. 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 CRITICAL RESULT: No. COMMUNICATION: Per this written report. By electronically signing this report, I, the attending physician, attestthat I have personally reviewed the images/data for the aboveexamination(s) and agree with the final edited report. Drafted by Wing Meadows M.D. on 01/12/2024 3:33 PM Final report signed by Edith Hicks MD on 01/13/2024 11:25 AM us Aris Lynch MD IMG NM PROCEDURES Final Result documented in this encounter Visit Diagnoses Not on filedocumented in this encounter Additional Health Concerns Assessment Noted Time A fall risk assessment has been complete d for the patient 01/10/2024 8:52 AM EDT A Body Mass Index follow-up plan has been documented for the patient 01/01/2024 10:12 AM EST documented as of this encounter Care Teams Cylindrical Mixer Relationship Specialty Start Date End Date Drew Howell MD [address] [place] [address] PCP - General 12/23/23 Efrain Sarah MD [address] [place] [address] 12/02/23 Aris Lynch MD 800 [facility] [address] [address] Surgeon Otolaryngology 12/02/23 documented as of this encounter
--- OUTSIDE RECORDS SUMMARY | 2024-10-04 19:04 | XMS_ITS | Encounter Summary ---
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) Procedures PET/CT Dotatate (Detectnet)(Netspot) Skull Base To Mid Thigh Aris Lynch MD [address] [address] Phone: tel: fax: Referral ID Status Reason Start Date Expiration Date Visits Re quested Visits Authorized [id number] Closed 01/03/2024 07/04/2025 2 2 Reason for Visit * Imaging (Routine) - Closed Specialty Diagnoses / Procedures Referred By Contac t Referred To Contact Radiology Diagnoses 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) Procedures PET/CT Dotatate (Detectnet)(Netspot) Skull Base To Mid Thigh Aris Lynch MD 800 [facility] [address] [place] [address] Phone: tel: fax: Referral ID Status Reason Start Date Expiration Date Visits Re quested Visits Authorized [id number] Closed 01/03/2024 07/04/2025 2 2 Encounter Details Date Type Department Care Team (Latest Contact Info) Description 01/12/2024 9:16 AM EDT - 01/12/2024 11:59 PM EDT Hospital Encounter [facility] Radiology [address] , [place] [address] 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 29025 mL 2 12/09/2023 documented as of this [...] ?? Radiopharmaceutical: 4.3 mCi of Ga-68 dotatate ([employer]), a somatostatin analogue (SSA), administered intravenously at right antecubital fossa at 9:49 AM. Incubation interval: 56 minutes. Oral contrast: Not applicable. Positioning: Arms raised. PET/CT scanner: Siemens Biograph 40 mCT. PET/CT acquisition: [id number]-[id number]. Standardized uptake value (SUV): Corrected for body weight only. CT: Low-dose, [id number], without intravenous contrast. TOTAL DLP (Dose Length [...] Therapy. Radiopharmaceutical: 4.3 mCi of Ga-68 dotatate ([employer]), a somatostatinanalogue (SSA), administered intravenously at right antecubital fossa at9:49 AM. Incubation interval: 56 minutes. Oral contrast: Not applicable. Positioning: Arms raised. PET/CT scanner: Siemens Biograph 40 mCT. PET/CT acquisition: [id number]-pio-thighs. Standardized uptake value (SUV): Corrected for body weight only. CT: Low-dose, [id number], without intravenous contrast. TOTAL DLP (Dose Length Product): 572.05 mGy.cm COMPARISON/CORRELATION: No prior DOTATATE PET/CT available for comparison. Correlated with FDG PET/CT performed at another facility 12/22/2023 wherestandardized uptake value (SUV) measurements may not be comparable to [facility] measurements due to tumor biology, incubation period, [...] measuring 3.3 x 2.5 cm (series 4, ) which demonstrates no significant SSA uptake above [...] of supraglottis (CMS/HCC) Malignant neoplasm of supraglottis Malignant neoplasm of larynx (CMS/HCC) Malignant neoplasm of larynx, unspecified site documented in this encounter Administered Medications Inactive Administered Medications - up to 3 most recent administrations Medication Order MAR Action Action Date Dose Rate Site copper Cu 64 dotatate (Detectnet) radio-isotope injection 4 millicurie 4 millicurie, Intravenous, Once, 1 dose, On Wed01/12/24 at 1000, Routine, Imaging NM Protocol Orders Given 01/12/2024 9:49 AM EDT 4.3 millicuries Right Antecubital documented in this encounter Additional Health Concerns Assessment Noted Time A fall risk assessment has been complete d for the patient 01/10/2024 8:52 AM EDT A Body Mass Index follow-up plan has been documented for the patient 01/01/2024 10:12 AM EST documented as of this encounter Care Teams Military Pilot Relationship Specialty Start Date End Date Drew Howell MD [address] [place] [address] PCP - General 12/23/23 Efrain Sarah MD [address] [place] [address] 12/02/23 Aris Lynch MD [address] [place] [address] [phone] Surgeon Otolaryngology 12/02/23 documented as of this encounter
--- OUTSIDE RECORDS SUMMARY | 2024-10-04 19:04 | XMS_ITS | Encounter Summary ---
Author Organization [employer] Address [address] [place] [address] Care Team Providers Care Bung Driver Name Role Phone Unavailable Primary Care Provider Unavailabl e Reason for Visit * Auth/Cert (Routine) Specialty Diagnoses / Procedures Referred By Osmany t Referred To Contact Diagnoses Problems with swallowing and mastication Flaccid dysphonia Chronic pharyngitis SEE PRIMARY DX Procedures LA LARYNGOSCOPY,DIRCT,OP SCOPE,BIOPSY LARYNGOSCOPY, WITH BIOPSY [facility] Surgery Department [address] [place] [phone] Phone: tel: fax: [facility] Surgery Department [address] [place] [address] Phone: tel: fax: Referral ID Status Reason Start Date Expiration Date Visits Re quested Visits Authorized [id number] 1 1 Encounter Details Date Type Department Care Team (Late st Contact Info) Description 12/01/2023 12:21 PM EST - 12/01/2023 1:30 PM EST Surgery [facility] Surgery Department [address] [place] [phone] Paras Sarah MD [address] [place] [address], [address] [place] [address] DIRECT LARYNGOSCOPY, WITH BIOPSY Social History Tobacco Use Types Packs/Day Years [...] Date Luis rded Speak language other than Cameroonian at home Not on file 12/01/2023 Want [...] Mass Index 21.72 12/01/2023 10:02 AM EST documented in this encounter Discharge Instructions * Discharge Instructions* Azeb Cabral RN - 12/01/2023 12:35 PM EST F/u ENT clinic in 2 weeks. Voice rest for 24 hours and then arms lengths voice for 3 days. Start with liquid/soft diet and advance as tolerated. Tylenol and Ibuprofen (dose per bottle) PO PRN pain. Gentle warm salt water gargles 2-3 times daily PRN pain. Activity ad margarita. Call office for any questions or concerns. N RESOURCES REPRESENTATIVE * Attachments The following attachments cannot be sent through Care Everywhere. * General Anesthesia Adult Care After (Cameroonian) * Laryngoscopy Care After (Cameroonian) documented in this encounter Medications at Time of Discharge [...] daily. 10/21/2023 documented as of this encounter H&P Notes * Paras Sarah MD - 12/01/2023 11:23 AM EST I have reviewed the above History & Physical and I have examined the patient. No changes have occurred since the above History & Physical. Paras Sarah MD N RESOURCES REPRESENTATIVE Source Note - Paras Sarah MD - 11/30/2023 9:15 AM EST documented in this encounter Miscellaneous Notes * Op Note - Praas Sarah MD - 12/01/2023 11:23 AM EST Patient: Ann Marie Felipe Attending Surgeon: Paras Sarah MD Anesthesia: General Pre Operative Diagnosis: 1. Hoarsness 2. Laryngeal mesion/mass 3. Chronic Tobacco Use Post Operative Diagnosis: Same Procedure: Microscopic Direct Laryngoscopy with biopsy, CPT code 43157 EBL: 5mL Complications: none immediate Pathology: Frozen section and Permanent Pathology sent for analysis. Indications: Ann Marie Felipe is a 78 y.o. who presented to the ENT clinic with a history of chronic throat problems and symptoms, including . Recommendations were made for Microscopic direct laryngoscopy and biopsy.The risks and benefits of the procedure were discussed with the patient's parents including, but not limited to bleeding, injury to teeth, need for continued intubation or tracheostomy ,need foradditional surgery and even possibly . Informed consent was signed and questions answered. Operative Findings: Left sided non-obstructing laryngeal mass extending from the AE fold onto the arytenoid and down onto the TFV, no subglottic extension. Right TVF not involved. No palpable lymphadenopathy. Operative Report: Patient was taking the the operating room suite and laid in a supine position and underwent generalanesthesia without complications. A timeout was called and all in the room were in agreement. The bed was rotated 90 degrees and the head and eyes were protected. A small shoulder roll was placed. Palpation of the neck revealed no obvious lymphadenopathy. A moist gauze was placed along the maxillary alveolar ridge. The Kimberly scope was used to start direct laryngoscopy. The oral cavity, base oftongue, vallecula, epiglottis, pyriform sinuses, post cricoid, AE folds, arytenoids, false cords, true cords and subglottis were inspected using direct visualization. Next the 0 degree scope was utilized for a microscopic exam. The above noted findings were seen and multiple biopsies were taken to debride the tumor and sent for forzen and permanent pathological evaluation. Afrin soaked pledgets were placed for hemostatsis and then removed. All instrumentation was removed with no damage to the lips, tongue or teeth. The patient was then allowed to wake up and was taken to the Recovery Room in stable condition. N RESOURCES REPRESENTATIVE documented in this encounter Plan of Treatment Not on file documented as of this encounter Procedures Procedure Name Priority Date/Time Associated Diagnosis Comments TISSUE EXAM [facility] AP Routine 12/01/2023 11:50 AM EST Problems with swallowing and mastication Flaccid dysphonia Chronic pharyngitis LA LARYNGOSCOPY,DIRCT ,OP SCOPE,BIOPSY 12/01/2023 11:30 AM EST Problems with swallowing and mastication Flaccid dysphonia Chronic pharyngitis NOVA GLUCOSE POC Routine 12/01/2023 9:41 AM EST documented in this encounter Results * Tissue Exam (12/01/2023 11:50 AM EST) [facility] AP RESULT See Note: [facility] Comment: [facility] [address] ?[place], [place] ??[address] or [phone] Neri Baez M.D., Car Mover PATIENT NAME ? LABORATORY NO. [id number] ??ANN MARIE FELIPE ? [id number] ? AGE ? SEX ??SSN ? CLIENT REF # [facility] ? 78 ?1945 ??M ?[id number] [address] ?REQUESTING M.D. ? ATTENDING M.D. [place] [address] ?PARAS SARAH DATE COLLECTED ?DATE RECEIVED ?DATE REPORTED 12/01/2023 ?12/01/2023 ? 12/02/2023 DIAGNOSIS: A. ?? LARYNX, BIOPSY, LEFT MASS: Invasive squamous cell carcinoma, well to moderately differentiated B. ?? LARYNX, BIOPSY, LEFT MASS: Invasive squamous cell carcinoma, well to moderately differentiated AVH COMMENT: ??Case was discussed with Dr. Sarah on 12/02/2023. Forest Ecologist tumor block: B1 CLINICAL HISTORY: Problems with swallowing and mastication, flaccid dysphonia, chronic pharyngitis SPECIMENS RECEIVED: A. ??LARYNX, BIOPSY, LEFT MASS B. ??LARYNX, BIOPSY, LEFT MASS MICROSCOPIC DESCRIPTION: Tissue blocks are prepared and slides are examined microscopically on all specimens. See diagnosis for details. Professional interpretation rendered by Cande Carmona D.O. at [facility], [address] [place] [address]. GROSS DESCRIPTION: A. ??Labeled left laryngeal mass is a small amount of rea soft tissue measuring 0.6 x 0.4 x 0.2 cm in aggregate, wrapped in a filter bag and submitted entirely in 1 block. ??MTH B. ??Labeled left laryngeal mass are multiple portions of rea soft tissue measuring 0.8 x 0.5 x 0.3 cm in aggregate, submitted entirely in 1 block. REVIEWED, DIAGNOSED AND ELECTRONICALLY SIGNED BY: Cande Carmona D.O. CPT CODES: ??[id number] Tissue LARYNGEAL STRUCTURE / Unknown 12/01/2023 11:50 AM EST Tissue specimen (specimen) LARYNGEAL STRUCTURE / Unknown 12/01/2023 11:51 AM EST us Paras Sarah MD PATHOLOGY/CYTOLOGY ORDERABLES Final Result [facility] [address] * Glucose, Nova Meter (12/01/2023 9:41 AM EST) POC-GLUCOSE 93 70 - 110 mg/dL 12/01/2023 9:43 AM EST [facility] Comment:In the event of poor peripheral blood flow, venous or arterial blood should be used due to the potential of erroneous results. Broke Beater Machine Operator [id number] 12/01/2023 9:43 AM EST [facility] Blood WHOLE BLOOD / Unknown 12/01/2023 9:41 AM EST 12/01/2023 9:43 AM EST Narrative [facility] - 12/01/2023 9:43 AM EST Broke Beater Machine Operator ID is - [id number] Paras Sarah MD POINT OF CARE TEST ORDERABLES Final Result Performing Organization Address [facility] Co de Phone Number [facility] [address] [phone] documented in this encounter Visit Diagnoses Diagnosis Problems with swallowing and mastication Flaccid dysphonia Dysphonia Chronic pharyngitis CAD (coronary artery disease) Coronary atherosclerosis of unspecified type of vessel, confederated salish or graft HTN (hypertension) Unspecified essential hypertension COPD (chronic obstructive pulmonary disease) (HCC) Chronic airway obstruction, not elsewhere classified Tobacco abuse Tobacco use disorder Type II diabetes mellitus (HCC) Type II or unspecified type diabetes mellitus without mention of complication, not stated as uncontrolled Problems with swallowing and mastication Flaccid dysphonia Dysphonia Chronic pharyngitis documented in this encounter Administered Medications Inactive Administered Medications - up to 3 most recent administrations Medication Order MAR Action Action Date Dose Rate Site electrolyte-R (PLASMA-LYTE R) infusion intravenous, Continuous, Starting on Wed12/01/23 at 1000, Pre-op New Bag 12/01/2023 10:11 AM EST 1,000 mLs famotidine (PEPCID) tablet 20 mg 20 mg Once, oral, On Wed12/01/23 at 1000, For 1 dose, Pharmacist to renally dose if CrCl is less than 50 mL/min or on CRRT., Pre-op Given 12/01/2023 10:12 AM EST 20 mg fentaNYL (SUBLIMAZE) injection 25 mcg 25 mcg Every 5 min PRN, intravenous, mild pain (1-3), Starting on Wed12/01/23 at 1212, For 4 doses, PACU fentaNYL (SUBLIMAZE) injection 50 mcg 50 mcg Every 5 min PRN, intravenous, moderate pain (4-6), Starting on Wed12/01/23 at 1212, For 2 doses, PACU HYDROmorphone (DILAUDID) injection 0.5 mg 0.5 mg Every 5 min PRN, intravenous, severe pain (7-10), Starting on Wed12/01/23 at 1212, For 4 doses, PACU ipratropium-albuteroL (DUO-NEB) 0.5 mg-3 mg(2.5 mg base)/3 mL nebulizer solution 3 mL 3 mL Once, nebulization, On Wed12/01/23 at 1300, For 1 dose, RESPIRATORY THERAPY TREATMENT Protect from Light, PACU, What is the respiratory therapy Modality? Small volume Nebulization Given 12/01/2023 12:17 PM EST 3 mLs meperidine (PF) (DEMEROL) syringe 6.5 mg 6.5 mg Once as needed (rounded from 6.25 mg), intravenous, shivering, Starting on Wed12/01/23 at 1212, For 1 dose, PACU, Are you ordering this medication for the approved restricted patient population specified above? No oxymetazoline (AFRIN) nasal spray As needed, Starting on Wed12/01/23 at 1149, Intra-op Given 12/01/2023 11:49 AM EST 1 spray documented in this encounter Active and Recently Administered Medications Times are shown in EST. Scheduled Medication Order 11/29/2023 11/30/2023 12/01/2023 famotidine (PEPCID) tablet 20 mg (COMPLETED) 20 mg Once, oral, On Wed12/01/23 at 1000, For 1 dose, Pharmacist to renally dose if CrCl is less than 50 mL/min or on CRRT., Pre-op 1012 (Given - Provid er: Adelina Crawford RN) ipratropium-albuteroL (DUO-NEB) 0.5 mg-3 mg(2.5 mg base)/3 mL nebulizer solution 3 mL (COMPLETED) 3 mL Once, nebulization, On Wed12/01/23 at 1300, For 1 dose, RESPIRATORY THERAPY TREATMENT Protect from Light, PACU, What is the respiratory therapy Modality? Small volume Nebulization 1217 (Given - Provid er: Kanwal Cerda RN) ipratropium-albuteroL (DUO-NEB) 0.5 mg-3 mg(2.5 mg base)/3 mL nebulizer solution 3 mL 3 mL Once, nebulization, On Wed12/01/23 at 1300, For 1 dose, RESPIRATORY THERAPY TREATMENT Protect from Light, PACU, What is the respiratory therapy Modality? Small volume Nebulization 1300 (Due) ondansetron PF (ZOFRAN) injection 4 mg 4 mg Once, intravenous, On Wed12/01/23 at 1230, For 1 dose, 1st line for nausea For IV push, give over 2 - 5 minutes., PACU 1230 (Due) oxyCODONE-acetaminophen (PERCOCET) tablet 5-325 mg 1 tablet Once, oral, On Wed12/01/23 at 1230, For 1 dose, Recommended maximum dose of acetaminophen is 4000 mg from all sources in 24 hours , PACU 1230 (Due) Continuous Medication Order 11/29/2023 11/30/2023 12/01/2023 electrolyte-R (PLASMA-LYTE R) infusion intravenous, Continuous, Starting on Wed12/01/23 at 1000, Pre-op 1011 ([facility] - Prov ider: Adelina Crawford RN) PRN Medication Order 11/29/2023 11/30/2023 12/01/2023 fentaNYL (SUBLIMAZE) injection 25 mcg 25 mcg Every 5 min PRN, intravenous, mild pain (1-3), Starting on Wed12/01/23 at 1212, For 4 doses, PACU fentaNYL (SUBLIMAZE) injection 50 mcg 50 mcg Every 5 min PRN, intravenous, moderate pain (4-6), Starting on Wed12/01/23 at 1212, For 2 doses, PACU HYDROmorphone (DILAUDID) injection 0.5 mg 0.5 mg Every 5 min PRN, intravenous, severe pain (7-10), Starting on Wed12/01/23 at 1212, For 4 doses, PACU meperidine (PF) (DEMEROL) syringe 6.5 mg 6.5 mg Once as needed (rounded from 6.25 mg), intravenous, shivering, Starting on Wed12/01/23 at 1212, For 1 dose, PACU, Are you ordering this medication for the approved restricted patient population specified above? No oxymetazoline (AFRIN) nasal spray (CANCELED) As needed, Starting on Wed12/01/23 at 1149, Intra-op 1149 (Given - Provid er: Paras Sarah MD) documented in this encounter
--- OUTSIDE RECORDS SUMMARY | 2024-10-04 19:04 | XMS_ITS | Referral Summary ---
Author Organization [employer] Address [address] [facility] [place] [address] Care Team Providers Care Grease Buffer Name Role Phone Unavailable Primary Care Provider [...] Date Luis rded Speak language other than Bermudian at home Not on file 12/01/2023 Want [...] 12/01/2023 10:02 AM EST Plan of Treatment Not on file Medical Devices Implanted Type Area Credit Control Officer Device Identifier Shelf Expiration Date Model / Serial / Lot Pacemakers Pacemakers Insurance DUAL COMPLETE MCR ADV [facility]NA [facility]
--- OUTSIDE RECORDS SUMMARY | 2024-10-04 19:04 | XMS_ITS | Encounter Summary ---
Author Organization [facility] Address [address] [id number] Care Team Providers Care Chucking Machine Operator Name Role Phone Efrain Sarah MD Unavailable [phone] Aris Lynch MD Unavailable [phone] Drew Howell MD Primary Care Provider [phone] Encounter Details Date Type Department Care Team (Late st Contact Info) Description 01/06/2024 3:45 PM EST Office Visit [facility] [address] , [address] [place] [address] Art Gillette MD [address] [place] [phone] Malignant neoplasm of overlapping sites of right lung (CMS/HCC) (Primary Dx) Social History Tobacco Use [...] as of this encounter Miscellaneous Notes * Progress Notes - Darell Chaparro, REGIONAL HR MANAGER - 01/06/2024 3:45 PM EST Images from the original note were not included. Telehealth Statement Patient Verification Patient identity has been confirmed using name and date of ? Yes Authorizations and Agreements/Telemedicine Consent sent and consent confirmed? Yes Patient Location: Home/Other Patient confirms they are physically located in [place]? Yes If the patient is not physically located in [place], the provider has confirmed with [facility] thatthe provider is authorized to provide services in patient's stated location? Yes Provider Location: [facility] facility Audio and video or audio only? Audio only Patient unable to do Video Telehealth as he did not have video equipment for Telehealth. Total visit time: 31 minutes HEAD, NECK, RESPIRATORY CLINIC Referring physician: Dr Cris MD Chief Complaint Lung nodules History Of Present Illness Vamsi Mallory is a 78 year old male current smoker smoker presenting with multiple lung nodule in the RUL and the RLL. We are seeing the patient as a consult, on the request of Aris Lynch MD. He has a PMH of CABG in 2009, defibrillator placement, DM, COPD. He was diagnosed with supraglotticsquamous cell cancer. PET scan on 12/22 showing two hypermetabolic pulmonary nodules; right infrahilar nodule demonstratesa maximum SUV of 16.2. and RUL nodule demonstrates maximum SUV of 10.7. He has supraglottic squamous cell cancer that was debulked on the same day as the bronchoscopy. The RUL suzie -lateral small nodule and the superior segment of the RLL were both positive for squamous cell cancer. Past Medical History He has a past medical history of Allergies, Arthritis, Depression, Heartburn, Old myocardial infarction, Personal history of other diseases of the circulatory system, Personal history of other diseases of the respiratory system, Personal history of other endocrine, nutritional and metabolic disease, Personal history of other endocrine, nutritional and metabolic disease, Personal history of pneumonia (recurrent), Shortness of breath, and Sinus problem. Surgical History He has a past surgical history that includes Coronary artery bypass graft (N/A); Knee surgery (N/A); Shoulder surgery (N/A); Cardiac pacemaker placement; and Laryngoscopy. Family History Family History Problem Relation Name Age of Onset Diabetes Mother Heart attack Mother Gout Father Conversions - Other Sister Accident Conversions - Other Brother Accident Arthritis Other Conversions - Other Other herpes zoster infection Other cancer Other Anesthesia problems Neg Hx Malig Hyperthermia Neg Hx Social History He reports that he has been smoking cigarettes. He started smoking about 70 years ago. He has a 70.00 pack-year smoking history. He has never used smokeless tobacco. He reports that he does not drinkalcohol and does not use drugs. Review of Systems: Complete 14 point review of systems is negative except for positives documented in HPI Allergies Penicillins Home Medications Current Outpatient Medications: albuterol 108 (90 Base) MCG/ACT inhaler, Inhale 2 puffs every 6 (six) hours if needed for wheezing or shortness of breath., Disp: , Rfl: aspirin 81 MG EC tablet, Take 1 tablet (81 mg) by mouth 1 (one) time each day., Disp: , Rfl: atorvastatin (Lipitor) 80 MG tablet, Take 1 tablet (80 mg) by mouth 1 (one) time each day., Disp: ,Rfl: cetirizine (ZyrTEC) 10 MG tablet, Take 1 tablet (10 mg) by mouth 1 (one) time each day., Disp: , Rfl: cholecalciferol (Vitamin D-3) 50 MCG (2000 UT) capsule, Take 1 capsule (2,000 Units) by mouth 1 (one) time each day., Disp: , Rfl: cyanocobalamin 1000 MCG tablet, Take 1 tablet (1,000 mcg) by mouth 1 (one) time each day., Disp: , Rfl: digoxin (Lanoxin) 125 MCG tablet, Take 1 tablet (125 mcg) by mouth 1 (one) time each day., Disp: , Rfl: dulaglutide (Trulicity) 1.5 MG/0.5ML solution pen-injector inj. pen, Inject 1.5 mg under the skin 1(one) time per week. Sundays, Disp: , Rfl: Eliquis 5 MG tablet, Take 1 tablet (5 mg) by mouth 2 (two) times a day. May resume taking on 01/03/24., Disp: , Rfl: empagliflozin (Jardiance) 25 MG, Take 1 tablet (25 mg) by mouth 1 (one) time each day., Disp: , Rfl: furosemide (Lasix) 40 MG tablet, Take 1 tablet (40 mg) by mouth every other day., Disp: , Rfl: losartan (Cozaar) 50 MG tablet, Take 1 tablet (50 mg) by mouth 1 (one) time each day., Disp: , Rfl: metFORMIN XR (Glucophage-XR) 750 MG 24 hr tablet, Take 1 tablet (750 mg) by mouth 2 (two) times a day. Do not crush, chew, or split., Disp: , Rfl: metoprolol succinate XL (Toprol-XL) 100 MG 24 hr tablet, Take 1 tablet (100 mg) by mouth 1 (one) time each day. Do not crush or chew., Disp: , Rfl: Nutritional Supplements (isosource 1.5 Perry/mL), 250 mL by Per G Tube route 5 (five) times a day. (Patient taking differently: 250 mL by Per G Tube route 5 (five) times a day. Patient does 4 times a day), Disp: 55223 mL, Rfl: 2 oxyCODONE (Roxicodone) 5 MG immediate release tablet, 1 tablet (5 mg) by Per G Tube route every 6 (six) hours if needed for severe pain., Disp: 12 tablet, Rfl: 0 pantoprazole (Protonix) 40 MG EC tablet, Take 1 tablet (40 mg) by mouth 1 (one) time each day. Do not crush, chew, or split., Disp: , Rfl: spironolactone (Aldactone) 25 MG tablet, Take 1 tablet (25 mg) by mouth 1 (one) time each day., Disp: , Rfl: tamsulosin (Flomax) 0.4 MG 24 hr capsule, Take 1 capsule (0.4 mg) by mouth 1 (one) time each day., Disp: , Rfl: Current Outpatient Medications on File Prior to Visit Medication Sig Dispense Refill albuterol 108 (90 Base) MCG/ACT inhaler Inhale [...] a day. May resume taking on 01/03/24. empagliflozin (Jardiance) 25 MG Take 1 tablet [...] each day. Do not crush or chew. Nutritional Supplements (isosource 1.5 Perry/mL) 250 mL by Per G Tube route 5 (five) times a day. (Patient taking differently: 250 mL by Per G Tube route 5 (five) times a day. Patient does 4 times a day) 58719 mL 2 oxyCODONE (Roxicodone) 5 MG immediate release tablet 1 tablet (5 mg) by Per G Tube route every 6 (six) hours if needed for severe pain. 12 tablet 0 pantoprazole (Protonix) 40 MG EC tablet Take 1 tablet (40 mg) by mouth 1 (one) time each day. Do not crush, chew, or split. spironolactone (Aldactone) 25 MG tablet Take 1 tablet (25 mg) by mouth 1 (one) time each day. tamsulosin (Flomax) 0.4 MG 24 hr capsule Take 1 capsule (0.4 mg) by mouth 1 (one) time each day. [DISCONTINUED] Eliquis 5 MG tablet Take 1 tablet (5 mg) by mouth 2 (two) times a day. No current facility-administered medications on file prior to visit. Physical Exam telehealth Last Recorded Vitals Telehealth Result 12/31/23 B. LUNG, RIGHT UPPER LOBE, BIOPSY: - MODERATELY DIFFERENTIATED SQUAMOUS CELL CARCINOMA. C. LUNG, RIGHT LOWER LOBE, BIOPSY: - MODERATELY DIFFERENTIATED SQUAMOUS CELL CARCINOMA. Radiology PET scan Assessment and Plan Vamsi Mallory is a 78 year old male current smoker initially presenting with lung nodules , recently diagnosed with squamous cell cancer of the supraglottic region. He was being considered for laryngectomy based on the diagnosis of the lung nodules. # Metastatic Squamous Cell Carcinoma - The bronchoscopic biopsy 12/31/2023 showed squamous cell cancer from the two sites that were PET positive in the Right lower lobe and the Right lower lobe. It is difficult to differentiate if theseare metastasis from larynx or lung primary. - At this point, most likely think this is metastatic lesions from the supraglottic cancer. - He will see Dr. Lynch for further management. He has an appointment on Wednesday this coming week. Will need to see Medical Oncology. # Tobacco dependence - Discussed smoking cessation for 12 minutes with the patient and the patient was encouraged to stop using tobacco. Explained the dangers of smoking for example worsened lung function, higher risk ofvascular disease and cancers. Explained benefits of stopping for example decreased risk of vasculardisease, cancers, and preserving lung function. Nicotine replacement was offered. This patient and plan of care has been discussed with Dr. Art Gillette. Follow up only as needed. Darell Chaparro APRN Pager: [phone] Cosigned by Art Gillette MD at 01/08/2024 9:27 PM EST Associated attestation - Art Gillette MD - 01/08/2024 9:27 PM EST I attest to being involved in more than half the total time in patient care. documented in this encounter Plan of Treatment Not on file documented as of this encounter Visit Diagnoses Diagnosis Malignant neoplasm of overlapping sites of right lung (CMS/HCC)- Primary documented in this encounter Additional Health Concerns Assessment Noted Time A fall risk assessment has been complete d for the patient 12/30/2023 12:46 PM EST A Body Mass Index follow-up plan has been documented for the patient 01/01/2024 10:12 AM EST documented as of this encounter Care Teams Chucking Machine Operator Relationship Specialty Start Date End Date Drew Howell MD [address] [place] [address] PCP - General 12/23/23 Efrain Sarah MD [address] [place] [address] 12/02/23 Aris Lynch MD [address] [place] [phone] Surgeon Otolaryngology 12/02/23 documented as of this encounter
--- OUTSIDE RECORDS SUMMARY | 2024-10-04 19:04 | XMS_ITS | Encounter Summary ---
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) Toñito Huerta MD [address] [address] Phone: tel: fax: Referral ID Status Reason Start Date Expiration Date Visits Requested Visits Authorized [id number] Authorized Specialty Services Required 01/26/2024 07/27/2025 1 1 Encounter Details Date Type Department Care Team (Late st Contact Info) Description 01/26/2024 Orders Only Pav [facility] Head, Neck & Respiratory 800 [facility], 2nd [place] [phone] Yoana Benavides, NICOLE 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) [...] as of this encounter Plan of Treatment Scheduled Referrals Name Type Priority Associated Diagnoses Orde r Schedule Ambulatory referral to Medical Oncology Outpatient Referral Routine 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
--- OUTSIDE RECORDS SUMMARY | 2024-10-04 19:04 | XMS_ITS | Encounter Summary ---
Author Organization [facility] Address [address] [place] [address] Care Team Providers Care Station Engineer Chief Name Role Phone Efrain Sarah MD Unavailable [phone] Aris Lynch MD Unavailable [phone] Drew Howell MD Primary Care Provider [phone] Encounter Details Date Type Department Care Team (Latest Contact Info) Description 01/10/2024 Travel Social History Tobacco Use Types Packs/Day [...] documented as of this encounter Care Teams Station Engineer Chief Relationship Specialty Start Date End Date Drew Howell MD [address] [place] [address] PCP - General 12/23/23 Efrain Sarah MD [address] [place] [address] 12/02/23 Aris Lynch MD [address] [place] [address] [address] Surgeon Otolaryngology 12/02/23 documented as of this encounter
--- OUTSIDE RECORDS SUMMARY | 2024-10-04 19:04 | XMS_ITS | Encounter Summary ---
Author Organization [facility] Address [address] [place] [address] Care Team Providers Care Platen Press Operator Apprentice Name Role Phone Efrain Sarah MD Unavailable [phone] Aris Lynch MD Unavailable [phone] Drew Howell MD Primary Care Provider [phone] Toñito Huerta MD Unavailable [phone] Reason for Visit * Reason Onset Date Comments Distress Screen Follow-up 02/03/2024 Encounter Details Date Type Department Care Team (Late st Contact Info) Description 02/03/2024 Telephone Pav CC Head, Neck & Respiratory 800 [facility], 2nd [place] [address] Efrain Alejandra [facility] [address] [place] [address] Distress Screen Follow-up Social History Tobacco Use Types Packs/Day Years [...] encounter Miscellaneous Notes * Telephone Encounter - Efrain Alejandra CSW - 02/03/2024 11:19 AM EDT Encounter Type: Distress Follow Up - Phone Call Disease Status: Established Patient Clinic Location: [facility] Disease Type: Lung & Bronchus Education Provided: Financial Support/Aid, Emotional/Physical Education & Materials, Lodging, Transportation, Psych-Onc Services Intervention Level: 3 Units (1 unit = 15 minutes): 2 Narrative: CLIENT INTEGRATION MANAGER contacted pt as follow up to distress screening completed during recent visit. CLIENT INTEGRATION MANAGER introduced self and explained nature of the call. Pt reported that he was doing well. Pt stated that he is suppose to start chemo and radiation soon. CLIENT INTEGRATION MANAGER provided empathetic listening. CLIENT INTEGRATION MANAGER informed pt of available emotional and practical support services offered through Psych Onc dept. Pt voiced no concerns or needs at this time. Pt stated next time he is in clinic he will ask to check in with a CLIENT INTEGRATION MANAGER for general check in if needed. CLIENT INTEGRATION MANAGER provided contact information and encouraged pt to reach out should future needs arise. CLIENT INTEGRATION MANAGER to remain available to assist prn. documented in this encounter Plan of Treatment [...] documented as of this encounter Care Teams Platen Press Operator Apprentice Relationship Specialty Start Date End Date Drew Howell MD [address] [place] [address] PCP - General 12/23/23 Efrain Sarah MD [address] [place] [address] 12/02/23 Aris Lynch MD 800 [facility] [address] [place] [phone] Surgeon Otolaryngology 12/02/23 Toñito Huerta MD [address] [phone] Consulting Physician Medical Oncology 01/18/24 documented as of this encounter
--- OUTSIDE RECORDS SUMMARY | 2024-10-04 19:04 | XMS_ITS | Encounter Summary ---
Author Organization [facility] Address [address] [place] [address] Care Team Providers Care Afternoon Nanny Name Role Phone Unavailable Primary Care Provider Unavailabl e Reason for Visit * Auth/Cert (Routine) Specialty Diagnoses / Procedures Referred By Osmany t Referred To Contact Diagnoses Problems with swallowing and mastication Flaccid dysphonia Chronic pharyngitis SEE PRIMARY DX Procedures WA LARYNGOSCOPY,DIRCT,OP SCOPE,BIOPSY LARYNGOSCOPY, WITH BIOPSY [facility] Surgery Department [address] [place] [address] Phone: tel: fax: [facility] Surgery Department [address] [place] [address] Phone: tel: fax: Referral ID Status Reason Start Date Expiration Date Visits Re quested Visits Authorized [id number] 1 1 Encounter Details Date Type Department Care Team (Late st Contact Info) Description 12/01/2023 11:30 AM EST Anesthesia Event [facility] Department [address] [place] [address] Arely Arora CRNA [address] [place] [address] Dbeo Huynh MD [address] [place], [place] [phone] Anesthesia Record Procedure Summary Procedure Name Responsible Anesthesiologist Anesthesia Start Time Anesthesia Stop Time DIRECT LARYNGOSCOPY, WITH BIOPSY Arely Arora CRNA 12/01/23 1130 12/01/23 1213 Events Date Time Event Comment 12/01/2023 1002 1130 An Start Patient identif ied and chart reviewed. 1130 An Start Data Anesthesia mac norris and monitors checked. 1133 Pre-Induction Eval FDA anest hesia machine pre-use checkout completed. Patient status reassessed prior to start of anesthesia care. 1139 An Induction 1144 An Intubation 1145 Anesthesia Ready 1205 An Extubation 1205 an stop data 1211 Handoff to Receiving I compl eted my handoff to the receiving clinician during which we: 1. Identified the patient. 2. Identified the responsible provider. 3. Reviewed the pertinent medical history. 4. Discussed the surgical course. 5. Reviewed intra-op anesthesia management and issues during anesthesia. 6. Set expectations for post-procedure period. 7. Allowed opportunity for questions and acknowledgement of understanding. 1213 An Stop Meds Name Total dexamethasone (DECADRON) injection 4 mg/ mL 12 mg lidocaine (XYLOCAINE) injection 2% 40 mg propofol (DIPRIVAN) injection 10 mg/mL b olus 100 mg rocuronium (ZEMURON) 100 mg/10 mL inject ion 30 mg sugammadex (BRIDION) injection 200 mg lactated ringers (LR) infusion 500 mL * Agents Name O2 N2O Air SEVOFLURANE DESFLURANE * Blood No blood administrations on file. Lines, Drains, and Airways Type Details Placement Removal Peripheral IV Placement Date: 11/03 11/24; Placement Time: 1010; Orientation: Anterior, Proximal, Right; Location: Forearm; Insertion attempts: 1; Removal Date: 12/01/23; Removal Time: 1315; Removal Reason: Other (Comment) 12/01/23 1010 by Adelina Crawford RN 12/01/23 1315 by Martha Call RN ETT Placement Date 12/01; Placement Time 1144 (created via procedure documentation); Airway Size 6; Airway Cuffed Yes; Removal Date 12/01/23; Removal Time 1205 12/01/23 1144 by Arely Arora CRNA 12/01/23 1205 by Arely Arora CRNA documented in this encounter Social History Tobacco Use Types Packs/Day Years [...] Date Luis rded Speak language other than Urdu at home Not on file 12/01/2023 Want [...] on file documented as of this encounter OR Notes * Anesthesia Postprocedure Evaluation - Arely Arora CRNA - 12/01/2023 12:11 PM EST Patient: Vamsi Mallory Procedure Summary Date: 12/01/23 Room / Location: [facility] OPERATING ROOM Anesthesia Start: 1130 Anesthesia Stop: Procedure: DIRECT LARYNGOSCOPY, WITH BIOPSY Diagnosis: Problems with swallowing and mastication Flaccid dysphonia Chronic pharyngitis (SEE PRIMARY DX) Surgeons: Efrain Sarah Jr., MD Responsible Provider: Arely Arora CRNA Anesthesia Type: general ASA Status: 4 Anesthesia Type: general Vitals Value Taken Time BP 112/57 12/01/23 1208 Temp 97 12/01/23 1211 Pulse 70 12/01/23 1210 Resp 15 12/01/23 1210 SpO2 94 % 12/01/23 1210 Vitals shown include unvalidated device data. Ht 1.854 m (6' 1 ) Wt 74.7 kg (164 lb 9.6 oz) BMI 21.72 kg/m?? Anesthesia Post Evaluation Patient location during evaluation: PACU Patient participation: complete - patient participated Level of consciousness: awake Pain management: adequate Multimodal analgesia pain management approach Airway patency: patent Cardiovascular status: stable Respiratory status: room air Hydration status: stable There were no known notable events for this encounter. Arely Arora CRNA 12/01/2023 12:11 PM EST LL PERFORMER * Anesthesia Procedure Notes - Arely Arora CRNA - 12/01/2023 11:48 AM EST Associated Order(s): Intubation Intubation Authorized by: Arely Arora CRNA Performed by: Arely Arora CRNA Date/Time: 12/01/2023 11:44 AM Urgency: elective Indications and Patient Condition Indications for airway management: anesthesia Spontaneous ventilation: present Sedation level: general anesthesia Preoxygenated: yes Patient position: sniffing Mask difficulty assessment: 2 - vent by mask + OA or adjuvant +/- NMBA Final Airway Details Final airway type: endotracheal airway Endotracheal tube type: ETT Cuffed: yes Successful intubation technique: video laryngoscopy Facilitating devices/methods: cricoid pressure and intubating stylet Blade size: #3 ETT size (mm): 6.0 Cormack-Lehane Classification: grade I - full view of glottis Placement verified by: chest auscultation and capnometry Cuff volume (mL): 8 Measured from: lips ETT to lips (cm): 21 Number of attempts at approach: 1 LL PERFORMER * Anesthesia Preprocedure Evaluation - Olivier Wheat DO - 12/01/2023 10:00 AM EST Anesthesia Pre Evaluation Mr. Vamsi Mallory is a 78 y.o. male being evaluated for the following: Date/Time: 12/01/23 1221 Procedure: DIRECT LARYNGOSCOPY, WITH BIOPSY Location: [facility] Surgeons: Efrain Sarah Jr., MD Relevant Problems CARDIOVASCULAR (+) CAD (coronary artery disease) (s/p stents, s/p CABG) (+) HTN (hypertension) ENDOCRINE (+) Type II diabetes mellitus (HCC) RESPIRATORY SYSTEM (+) COPD (chronic obstructive pulmonary disease) (HCC) Other (+) Tobacco abuse Clinical information reviewed: NPO Status No data recorded Physical Exam Airway Mallampati: II Neck ROM: full Cardiovascular Rhythm: regular Rate: normal Dental (+) lower dentures, upper dentures Pulmonary (+) decreased breath sounds, wheezes Abdominal Other findings: AAOx3 Anesthesia Plan ASA 4 Planned anesthetic: general Anesthesia Plan Factors- The patient is a current smoker. Patient was not previously instructed to abstain from smoking on day of procedure. Patient did not smoke on day of procedure. Induction: intravenous Postoperative Plan- Postoperative administration of opioids is intended. Informed Consent- Anesthetic plan and risks discussed with patient. Plan discussed with CHIROPRACTIC DOCTOR. LL PERFORMER documented in this encounter Plan of Treatment Not on file documented as of this encounter Procedures Procedure Name Priority Date/Time Associated Diagnosis Comments ANESTHESIA INTUBATION Routine 12/01/2023 11:44 AM EST documented in this encounter Results * AN SINGLE LUMEN INTUBATION (12/01/2023 11:44 AM EST) Narrative Arely Arora CRNA - 12/01/2023 11:44 AM EST Arely Arora CRNA ? 12/01/2023 11:50 AM Intubation Authorized by: Arely Arora CRNA ?? Performed by: Arely Arora CRNA Date/Time: 12/01/2023 11:44 AM Urgency: elective Indications and Patient Condition Indications for airway management: anesthesia Spontaneous ventilation: present Sedation level: general anesthesia Preoxygenated: yes Patient position: sniffing Mask difficulty assessment: 2 - vent by mask + OA or adjuvant +/- NMBA Final Airway Details Final airway type: endotracheal airway Endotracheal tube type: ETT Cuffed: yes Successful intubation technique: video laryngoscopy Facilitating devices/methods: cricoid pressure and intubating stylet Blade size: #3 ETT size (mm): 6.0 Cormack-Lehane Classification: grade I - full view of glottis Placement verified by: chest auscultation and capnometry Cuff volume (mL): 8 Measured from: lips ETT to lips (cm): 21 Number of attempts at approach: 1 Arely Arora [facility] ANESTHESIA ORDERABLES Fin al Result documented in this encounter Visit Diagnoses Not on filedocumented in this encounter Administered Medications Inactive Administered Medications - up to 3 most recent administrations Medication Order MAR Action Action Date Dose Rate Site dexamethasone (DECADRON) injection As needed, intravenous, Starting on Wed12/01/23 at 1139, Anesthesia Intra-op Given 12/01/2023 11:39 AM EST 12 mg lactated ringers (LR) infusion Continuous PRN, intravenous, Starting on Wed12/01/23 at 1126, Anesthesia Intra-op New Bag 12/01/2023 11:26 AM EST lidocaine (XYLOCAINE) injection 2% As needed, intravenous, Starting on Wed12/01/23 at 1139, Anesthesia Intra-op Given 12/01/2023 11:39 AM EST 40 mg propofol (DIPRIVAN) injection 10 mg/mL bolus As needed, intravenous, Starting on Wed12/01/23 at 1139, Anesthesia Intra-op Given 12/01/2023 11:39 AM EST 100 mg rocuronium (ZEMURON) injection As needed, intravenous, Starting on Wed12/01/23 at 1139, Anesthesia Intra-op Given 12/01/2023 11:39 AM EST 30 mg sugammadex (BRIDION) IV Push As needed, intravenous, Starting on Wed12/01/23 at 1200, Anesthesia Intra-op Given 12/01/2023 12:00 PM EST 200 mg documented in this encounter
--- OUTSIDE RECORDS SUMMARY | 2024-10-04 19:04 | XMS_ITS | Encounter Summary ---
Author Organization [facility] Address [address] [place] [address] Care Team Providers Care Grease Maker Name Role Phone Efrain Sarah MD Unavailable [phone] Aris Lynch MD Unavailable [phone] Drew Howell MD Primary Care Provider [phone] Toñito Huerta MD Unavailable [phone] Encounter Details Date Type Department Care Team (Latest Contact Info) Description 01/19/2024 Travel Social History Tobacco Use Types Packs/Day [...] documented as of this encounter Care Teams Grease Maker Relationship Specialty Start Date End Date Drew Howell MD [address] [place] [address] PCP - General 12/23/23 Efrain Sarah MD [address] [place] [address] 12/02/23 Aris Lynch MD [address] [phone] Surgeon Otolaryngology 12/02/23 Toñito Huerta MD [address] [place] [phone] Consulting Physician Medical Oncology 01/18/24 documented as of this encounter
--- OUTSIDE RECORDS SUMMARY | 2024-10-04 19:04 | XMS_ITS | Encounter Summary ---
Author Organization [facility] Address [address] [place] [address] Care Team Providers Care Credit Collections Manager Name Role Phone Efrain Sarah MD Unavailable [phone] Aris Lynch MD Unavailable [phone] Drew Howell MD Primary Care Provider [phone] Encounter Details Date Type Department Care Team (Latest Contact Info) Description 01/06/2024 Travel Social History Tobacco Use Types Packs/Day [...] documented as of this encounter Care Teams Credit Collections Manager Relationship Specialty Start Date End Date Drew Howell MD [address] [place] [address] PCP - General 12/23/23 Efrain Sarah MD [address] [place] [address] 12/02/23 Aris Lynch MD [address] [place] [address] [address] Surgeon Otolaryngology 12/02/23 documented as of this encounter
--- OUTSIDE RECORDS SUMMARY | 2024-10-04 19:04 | XMS_ITS | Encounter Summary ---
Author Organization [facility] Address [address] [place] [address] Care Team Providers Care Pediatric Cardiologist Name Role Phone Efrain Sarah MD Unavailable [phone] Aris Lynch MD Unavailable [phone] Drew Howell MD Primary Care Provider [phone] Toñito Huerta MD Unavailable [phone] Encounter Details Date Type Department Care Team (Late st Contact Info) Description 03/20/2024 Telephone Pav CC Head, Neck & Respiratory 800 [facility], [address]nd [place] [phone] Aris Lynch MD 800 [facility] [address] [place] [address] Social History Tobacco Use Types [...] documented as of this encounter Care Teams Pediatric Cardiologist Relationship Specialty Start Date End Date Drew Howell MD [address] [place], [place] [phone] PCP - General 12/23/23 Efrain Sarah MD [address] [place] [address] 12/02/23 Aris Lynch MD 800 [facility] Cancer [address] [phone] Surgeon Otolaryngology 12/02/23 Toñito Huerta MD [address] [phone] Consulting Physician Medical Oncology 01/18/24 documented as of this encounter
--- OUTSIDE RECORDS SUMMARY | 2024-10-04 19:04 | XMS_ITS | Encounter Summary ---
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) Js Morelos MD [address] [address] Phone: tel: fax: Jessenia Baca MD [facility] [place] [address] Phone: tel: fax: Referral ID Status Reason Start Date Expiration Date Visits Requested Visits Authorized [id number] Authorized Specialty Services Required 01/19/2024 07/20/2025 1 1 * Consultation (Routine) - Closed Specialty Diagnoses / Procedures Referred By Contac t Referred To Contact Radiation Oncology Diagnoses 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) Aris Lynch MD 800 [facility] [address] [place] [address] Phone: tel: fax: [facility] [address] [address] Phone: tel: fax: Referral ID Status Reason Start Date Expiration Date V isits Requested Visits Authorized [id number] Closed Specialty Services Required 01/10/2024 07/11/2025 1 1 Scheduling Instructions SD f/u Cris (MedOnc &/or RadOnc) Reason for Visit * Reason Comments Consult * Consultation (Routine) - Closed Specialty Diagnoses / Procedures Referred By Contac t Referred To Contact Radiation Oncology Diagnoses 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) Aris Lynch MD 800 [facility] [address] [place] [address] Phone: tel: fax: [facility] [address] [address] Phone: tel: fax: Referral ID Status Reason Start Date Expiration Date V isits Requested Visits Authorized [id number] Closed Specialty Services Required 01/10/2024 07/11/2025 1 1 Encounter Details Date Type Department Care Team (Latest Contact Info) Description 01/19/2024 10:00 AM EDT - 01/19/2024 11:59 PM EDT Hospital Encounter [facility] [id number] [place] [address] Js Morelos MD [address] [phone] 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) Discharge Disposition: Still a Patient Social History Tobacco Use Types Packs/Day Years [...] Pulse 70 01/19/2024 10:47 AM EDT Temperature - - Respiratory Rate 16 01/19/2024 10:47 AM EDT Oxygen Saturation 94% 01/19/2024 10:47 AM EDT Inhaled Oxygen Concentration - - Weight 75.9 kg (167 lb 5.3 oz) 01/19/2024 10:47 AM EDT Height 185.4 cm (6' 1 ) 01/19/2024 10:47 AM EDT Body Mass Index 22.08 01/19/2024 10:47 AM EDT documented in this encounter Medications at Time of Discharge albuterol 108 (90 Base) MCG/ACT inhaler Inhale 2 puffs every 6 (six) hours if needed for wheezing or shortness of breath. aspirin 81 MG EC tablet Take 1 tablet (81 mg) by mouth 1 (one) time each day. atorvastatin (Lipitor) 40 MG tablet TAKE ONE TABLET BY MOUTH EVERY DAY AT BEDTIME FOR cholesterol 01/17/2024 atorvastatin (Lipitor) 80 MG tablet Take 1 [...] Tube route 5 (five) times a day. 68215 mL 2 12/09/2023 documented as of this encounter Miscellaneous Notes * Progress Notes - Boaz Katz MD - 01/19/2024 10:00 AM EDT [facility] RADIATION MEDICINE RADIATION ONCOLOGY CONSULTATION NOTE PATIENT NAME: Vamsi Mallory : 1945 DATE OF SERVICE: 01/19/2024 REFERRING PROVIDER: Aris Lynch MD. 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 REASON FOR CONSULTATION: Consideration of radiation treatment for this patient's squamous cell carcinoma of the larynx HISTORY OF PRESENT ILLNESS: Vamsi Mallory is a 78 y.o. male who we are seeing in consultation today for advice on the management of above diagnosis and related patient care. Oncology History Overview Note Larynx cancer: T3 N1Mx Lung cancer vs met Jul 2023 dysphagia Dec 2023 Odynophagia, dysphagia and otalgia with 125 lb weight loss and GARCIA with hoarseness 12/13/23 PEG under General anesthesia Dr. Zuniga CT surgery. 12/29/2023: PET/CT with right infrahilar node and a RUL nodule with SUV of 16 and 10 respectively. Activity in larynx and right level 2 neck. Mild activity in 3.3 cm adrenal mass. 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 12/22/2023: PET/CT 1. Supraglottic mass consistent with the patient's known primary malignancy. Parotid hypermetabolism and hypermetabolic cervical lymph nodes are likely metastatic. 2. Pulmonary metastatic disease. 3. Indeterminate left adrenal nodule. 01/12/2024: PET/CT Dotatate to evaluate adrenal mass The questionable left adrenal mass demonstrates no significant SSA uptake. The mass also shows onlymild blood pool level FDG uptake in the outside PET/CT study, which makes the diagnosis of paraganglioma/pheochromocytoma les likely, yet if clinically still suspected I-123 MIBG can be considered for further evaluation of the rare situation of non-SSTR expressing Pheochromocytoma/paraganglioma. Otherwise CT/MRI adrenal protocol recommended for further evaluation. The known biopsy proven left supraglottic laryngeal as well as right upper and lower lobe squamous cell carcinoma shows only mild to no SSA uptake, stable in size. 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 INTERVAL HISTORY: In terms of symptoms patient reports significant weight loss, progressing odynophagia and dysphagia, left otalgia. Due to significant discomfort from symptoms patient presents to Radiation Oncology for consideration of localized therapy to his larynx. REVIEW OF SYSTEMS: A 14 point review of systems was conducted with pertinent positives and negatives above in the HPI.RN note and history reviewed with the patient. Review of Systems Constitutional: Positive for unexpected weight change. HENT: Positive for sore throat, trouble swallowing and voice change. Eyes: Negative. Respiratory: Negative. Cardiovascular: Negative. Gastrointestinal: Negative. Endocrine: Negative. Genitourinary: Negative. Musculoskeletal: Negative. Skin: Negative. Neurological: Negative. Hematological: Negative. Psychiatric/Behavioral: Negative. PAST MEDICAL HISTORY: Past Medical History: Diagnosis Date Allergies Arthritis [...] of pneumonia Shortness of breath Sinus problem PAST SURGICAL HISTORY: Past Surgical History: Procedure Laterality Date CARDIAC PACEMAKER PLACEMENT CORONARY ARTERY BYPASS GRAFT N/A CABG (CABG) from [facility] KNEE SURGERY N/A Knee Surgery from [facility] LARYNGOSCOPY SHOULDER SURGERY N/A Shoulder Surgery from [facility] MEDICATIONS: Current Outpatient Medications: albuterol 108 (90 Base) MCG/ACT inhaler, Inhale 2 puffs every 6 (six) hours if needed for wheezing or shortness of breath., Disp: , Rfl: aspirin 81 MG EC tablet, Take 1 tablet (81 mg) by mouth 1 (one) time each day., Disp: , Rfl: atorvastatin (Lipitor) 40 MG tablet, TAKE ONE TABLET BY MOUTH EVERY DAY AT BEDTIME FOR cholesterol,Disp: , Rfl: atorvastatin (Lipitor) 80 MG tablet, [...] Patient does 4 times a day), Disp: 61366 mL, Rfl: 2 oxyCODONE (Roxicodone) 5 MG [...] (one) time each day., Disp: , Rfl: ALLERGIES: Allergies Allergen Reactions Penicillins Hives and Rash SOCIAL HISTORY: Social History Tobacco Use Smoking status: Every Day Packs/day: 1.00 Years: 70.00 Additional pack years: 0.00 Total pack years: 70.00 Types: Cigarettes Start date: 1952 Smokeless tobacco: Never Tobacco comments: Trying to quit Vaping Use Vaping Use: Never used Substance Use Topics Alcohol use: Never Drug use: Never FAMILY HISTORY: Family History Problem Relation Name Age of Onset Diabetes Mother Heart attack Mother Gout Father Conversions - Other Sister Accident Conversions - Other Brother Accident Arthritis Other Conversions - Other Other herpes zoster infection Other cancer Other Anesthesia problems Neg Hx Malig Hyperthermia Neg Hx PHYSICAL EXAM: Vital Signs: Visit Vitals BP 102/60 Pulse 70 Resp 16 Ht 1.854 m (6' 1 ) Wt 75.9 kg (167 lb 5.3 oz) SpO2 94% BMI 22.08 kg/m?? Smoking Status Every Day BSA 1.98 m?? Physical Exam Constitutional: Appearance: Normal appearance. HENT: Head: Normocephalic and atraumatic. Right Ear: External ear normal. Left Ear: External ear normal. Nose: Nose normal. Mouth/Throat: Pharynx: Oropharynx is clear. Comments: Per fiberoptic flexible laryngoscopy performed on December 08 by ENT, septum is deviated to the left and endolarynx revealed left supra glottic larynx mass with transglottic extension and fixed left vocal fold. Eyes: Conjunctiva/sclera: Conjunctivae normal. Cardiovascular: Rate and Rhythm: Normal rate. Pulmonary: Effort: Pulmonary effort is normal. Abdominal: General: Abdomen is flat. Musculoskeletal: General: Normal range of motion. Cervical back: Normal range of motion. Lymphadenopathy: Cervical: Cervical adenopathy present. Skin: General: Skin is warm and dry. Neurological: General: No focal deficit present. Mental Status: He is alert and oriented to person, place, and time. Psychiatric: Mood and Affect: Mood normal. Behavior: Behavior normal. PATHOLOGY AND LABORATORY STUDIES: All pertinent lab and pathology results were reviewed. 12/31/2023 Final Diagnosis A. LARYNGEAL MASS, BIOPSY: - MODERATELY DIFFERENTIATED SQUAMOUS CELL CARCINOMA. B. LUNG, RIGHT UPPER LOBE, BIOPSY: - MODERATELY DIFFERENTIATED SQUAMOUS CELL CARCINOMA. C. LUNG, RIGHT LOWER LOBE, BIOPSY: - MODERATELY DIFFERENTIATED SQUAMOUS CELL CARCINOMA. IMAGING: The following radiologic studies were independently reviewed by the staff attending and myself. PET/CT Dotatate (Detectnet)(Domain Apps) Skull Base To Mid Thigh 01/12/2024 Impression 1.The questionable left adrenal mass demonstrates no [...] recently surgically removed/biopsied right parotid Warthin tumor. ASSESSMENT AND PLAN: Vamsi Mallory is a 78 y.o. male with a history of tobacco, CABG in 2010, defibrillator placement, DM, COPD now presenting with metastatic supraglottic larynx cancer. I had an extensive discussion with Mr. Vamsi Mallory about the natural history and overall treatment approach to metastatic laryngeal cancer, as well as the likely outcome if treatment is not pursued. We discussed the rationale for including radiation as part of the treatment approach. In general, outcomes for treatment are expected to be palliative. No guarantees as to the outcome of the treatments discussed were made. For his metastatic laryngeal cancer, we discussed palliative RT to the larynx - the 'Quad Shot' regimen at 14 Gy delivered in 2 days in 4 fractions followed by reassessment in a month for consideration of repeat therapy up to 3 times. I reviewed the practicalities of radiation and the typical radiation treatment course. Based on these anticipated targets, we reviewed the typical radiation course, including potential early and lateside toxicities. No guarantees about the likely presence or absence of any treatment toxicity were made. Patient reports he would like to receive therapy close to home therefore a referral has been made for radiation treatment in [place]. We discussed with patient that an alternate palliative regimen may be offered in [place]. All of his questions were answered to the patient's satisfaction. Mr. Mallory has been given a printout regarding future appointments and the plan of care. He has our contact information should he have questions or concerns. A total of 60 minutes were spent preparing, performing an examination, counseling, educating the patient, and care coordination with more than 35 minutes of that time used for counseling the patient and coordination of care. Thank you for allowing us to take part in the care of Vamsi Mallory. Please do not hesitate to contact our clinic if you have any questions or concerns. NOTES FOR TREATMENT PLANNING History of prior radiation: None History of auto-immune disease: No History of ulcerative colitis or Crohn's disease: No History of connective tissue disorder: No Pacemaker or ICD: Yes Able to lay flat: Yes Transportation available: Yes Boaz Katz MD, MPH. Resident Physician Radiation Oncology [facility] Pager: [phone] Cosigned by Js Morelos MD at 01/24/2024 8:38 AM EDT Associated attestation - Js Morelos MD - 01/24/2024 8:38 AM EDT I saw and evaluated the patient with the resident/fellow. I discussed the case with the resident/fellow and agree with the findings and plan as documented. 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) 1 Occurrences starting 01/19/2024 until 07/21/2025 documented as of this encounter Visit Diagnoses [...] documented as of this encounter Care Teams Lining Sewer Relationship Specialty Start Date End Date Drew Howell MD [address] [place] [address] PCP - General 12/23/23 Efrain Sarah MD [address] [place] [address] 12/02/23 Aris Lynch MD 800 [facility] [address] [address] Surgeon Otolaryngology 12/02/23 Toñito Huerta MD [address] [place] [phone] Consulting Physician Medical Oncology 01/18/24 documented as of this encounter
--- OUTSIDE RECORDS SUMMARY | 2024-10-04 19:04 | XMS_ITS | Encounter Summary ---
Author Organization [facility] Address [address] [place] [address] Care Team Providers Care Welding Equipment Repairer Name Role Phone Efrain Sarah MD Unavailable [phone] Aris Lynch MD Unavailable [phone] Drew Howell MD Primary Care Provider [phone] Toñito Huerta MD Unavailable [phone] Encounter Details Date Type Department Care Team (Late st Contact Info) Description 02/04/2024 Telephone [facility] Head, Neck & Respiratory 800 [facility], [address] [place] [phone] Aris Lynch MD 800 [facility] [address] [place] [address] Social History Tobacco Use Types [...] documented as of this encounter Care Teams Welding Equipment Repairer Relationship Specialty Start Date End Date Drew Howell MD [address] [place], [place] [phone] PCP - General 12/23/23 Efrain Sarah MD [address] [place] [address] 12/02/23 Aris Lynch MD 800 [facility] [address] [phone] Surgeon Otolaryngology 12/02/23 Toñito Huerta MD [address] [phone] Consulting Physician Medical Oncology 01/18/24 documented as of this encounter
--- OUTSIDE RECORDS SUMMARY | 2024-10-04 19:04 | XMS_ITS | Encounter Summary ---
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) Procedures PET/CT Dotatate (Detectnet)(Netspot) Skull Base To Mid Thigh Aris Lynch MD 800 [facility] [address] [address] Phone: tel: fax: Referral ID Status Reason Start Date Expiration Date Visits Re quested Visits Authorized [id number] Closed 01/03/2024 07/04/2025 2 2 Encounter Details Date Type Department Care Team (Late st Contact Info) Description 01/03/2024 Orders Only [facility] Head, Neck & Respiratory 800 [facility], [address] [place] [address] Aris Lynch MD 800 [facility] [address] [address] 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 PET/CT acquisition: [id number]. Standardized uptake value (SUV): Corrected for body weight only. CT: Low-dose, [id number]-styn, without intravenous contrast. TOTAL DLP (Dose Length [...] Therapy. Radiopharmaceutical: 4.3 mCi of Ga-68 dotatate (NETSPOT), a somatostatinanalogue (SSA), administered intravenously at right antecubital fossa at9:49 AM. Incubation interval: 56 minutes. Oral contrast: Not applicable. Positioning: Arms raised. PET/CT scanner: Siemens Biograph 40 mCT. PET/CT acquisition: [id number]-qy-tpl-thighs. Standardized uptake value (SUV): Corrected for body weight only. CT: Low-dose, [id number]-dnih, without intravenous contrast. TOTAL DLP (Dose Length Product): 572.05 mGy.cm COMPARISON/CORRELATION: No prior DOTATATE PET/CT available for comparison. 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) Malignant neoplasm of supraglottis Malignant neoplasm of larynx (CMS/HCC) Malignant neoplasm of larynx, unspecified site documented in this encounter Additional Health Concerns Assessment Noted Time A fall risk assessment has been complete d for the patient 12/30/2023 12:46 PM EST A Body Mass Index follow-up plan has been documented for the patient 01/01/2024 10:12 AM EST documented as of this encounter Care Teams Compound Coating Machine Offbearer Relationship Specialty Start Date End Date Drew Howell MD [address] [place] [phone] PCP - General 12/23/23 Efrain Sarah MD [address] [place] [address] 12/02/23 Aris Lynch MD [address] [place] [address] [phone] Surgeon Otolaryngology 12/02/23 documented as of this encounter
--- OUTSIDE RECORDS SUMMARY | 2024-10-04 19:04 | XMS_ITS | Encounter Summary ---
Author Organization [facility] [employer] Address [address] [place] [address] Care Team Providers Care Rag Room Supervisor Name Role Phone Unavailable Primary Care Provider Unavailabl e Reason for Visit * Auth/Cert (Routine) Specialty Diagnoses / Procedures Referred By Osmany alberto Referred To Contact Diagnoses Problems with swallowing and mastication Flaccid dysphonia Chronic pharyngitis SEE PRIMARY DX Procedures CA LARYNGOSCOPY,DIRCT,OP SCOPE,BIOPSY LARYNGOSCOPY, WITH BIOPSY [facility] [address] [place] [address] Phone: tel: fax: [facility] [address] [place] [address] Phone: tel: fax: Referral ID Status Reason Start Date Expiration Date Visits Re quested Visits Authorized [id number] 1 1 Encounter Details Date Type Department Care Team (Late st Contact Info) Description 12/01/2023 9:25 AM EST - 12/01/2023 1:19 PM EST Hospital Encounter [facility] [address] [place] [address] Paras Sarah MD [address] [place] [address], [address] [place] [address] Problems with swallowing and mastication; Flaccid dysphonia; Chronic pharyngitis Discharge Disposition: Home or Self Care Social [...] Date Luis rded Speak language other than Singaporean at home Not on file 12/01/2023 Want [...] Call office for any questions or concerns. ILL MANAGER * Attachments The following attachments cannot be sent through Care Everywhere. * General Anesthesia Adult Care After (Singaporean) * Laryngoscopy Care After (Singaporean) documented in this encounter Medications at Time [...] above History & Physical. Paras Sarah MD ILL MANAGER Source Note - Paras Sarah MD - 11/30/2023 9:15 AM EST documented in this encounter Miscellaneous Notes * Op Note - Paras Sarah MD - 12/01/2023 11:23 AM EST Patient: Ann Marie Felipe Attending Surgeon: Paras Sarah MD Anesthesia: General Pre Operative Diagnosis: 1. Hoarsness 2. Laryngeal mesion/mass 3. Chronic Tobacco Use Post Operative Diagnosis: Same Procedure: Microscopic Direct Laryngoscopy with biopsy, CPT code 76085 EBL: 5mL Complications: none immediate Pathology: Frozen [...] to the Recovery Room in stable condition. ILL MANAGER documented in this encounter Plan of Treatment Not on file documented as of this encounter Procedures Procedure Name Priority Date/Time Associated Diagnosis Comments TISSUE EXAM [facility] AP Routine 12/01/2023 11:50 AM EST Problems with swallowing and mastication Flaccid dysphonia Chronic pharyngitis CA LARYNGOSCOPY,DIRCT ,OP SCOPE,BIOPSY 12/01/2023 11:30 AM EST Problems with swallowing and mastication Flaccid dysphonia Chronic pharyngitis NOVA GLUCOSE POC Routine 12/01/2023 9:41 AM EST documented in this encounter Results * Tissue Exam (12/01/2023 11:50 AM EST) Pathologist [facility] AP RESULT See Note: [facility] Comment: [facility] [address] ?[place], [place] ??[address] or [phone] Neri Baez M.D., Tie Up Worker PATIENT NAME ? LABORATORY NO. [id number] ??ANN MARIE FELIPE ? [id number] ? AGE ? SEX ??SSN ? CLIENT REF # [facility] ? [birth year] ?1945 ??M ?[id number] [address] ?REQUESTING M.D. ? ATTENDING M.D. ? [place] [address] ?PARAS SARAH DATE COLLECTED ?DATE RECEIVED ?DATE REPORTED 12/01/2023 ?12/01/2023 ? 12/02/2023 DIAGNOSIS: A. ?? LARYNX, BIOPSY, LEFT MASS: Invasive squamous cell carcinoma, well to moderately differentiated B. ?? LARYNX, BIOPSY, LEFT MASS: Invasive squamous cell carcinoma, well to moderately differentiated AVH COMMENT: ??Case was discussed with Dr. Sarah on 12/02/2023. Fisher Line tumor block: B1 CLINICAL HISTORY: Problems with swallowing and mastication, flaccid dysphonia, chronic pharyngitis SPECIMENS RECEIVED: A. ??LARYNX, BIOPSY, LEFT MASS B. ??LARYNX, BIOPSY, LEFT MASS MICROSCOPIC DESCRIPTION: Tissue blocks are prepared and slides are examined microscopically on all specimens. See diagnosis for details. Professional interpretation rendered by Cande Carmona D.O. at [facility], [address] [place] [address]. GROSS DESCRIPTION: A. ??Labeled left laryngeal mass [...] SIGNED BY: Cande Carmona D.O. CPT CODES: ??38648v6 Tissue LARYNGEAL STRUCTURE / Unknown 12/01/2023 11:50 AM EST Tissue specimen (specimen) LARYNGEAL STRUCTURE / Unknown 12/01/2023 11:51 AM EST us Paras Sarah MD PATHOLOGY/CYTOLOGY ORDERABLES Final Result [facility] [address] * Glucose, Nova Meter (12/01/2023 9:41 AM EST) POC-GLUCOSE 93 70 - 110 mg/dL 12/01/2023 9:43 AM EST [facility] Comment:In the event of poor peripheral blood flow, venous or arterial blood should be used due to the potential of erroneous results. Induction Furnace Operator [id number] 12/01/2023 9:43 AM EST [facility] Blood WHOLE BLOOD / Unknown 12/01/2023 9:41 AM EST 12/01/2023 9:43 AM EST Narrative [facility] - 12/01/2023 9:43 AM EST Induction Furnace Operator ID is - [id number] us Paras Sarah MD POINT OF CARE TEST ORDERABLES Final Result Performing Organization Address City/State/[facility] Co de Phone Number [facility] [address] [phone] documented in this encounter Visit Diagnoses Diagnosis Problems with swallowing and mastication Flaccid dysphonia Dysphonia Chronic pharyngitis CAD (coronary artery disease) Coronary atherosclerosis of unspecified type of vessel, [place] or graft HTN (hypertension) Unspecified essential hypertension COPD (chronic obstructive pulmonary disease) (HCC) Chronic airway obstruction, not elsewhere classified Tobacco abuse Tobacco use disorder Type II diabetes mellitus (HCC) Type II or unspecified type diabetes mellitus without mention of complication, not stated as uncontrolled documented in this encounter Administered Medications Inactive [...] approved restricted patient population specified above? No documented in this encounter Active and Recently [...] on Wed12/01/23 at 1000, Pre-op 1011 (New Bag - Prov ider: Adelina Crawford RN) PRN [...]
--- OUTSIDE RECORDS SUMMARY | 2024-10-04 19:05 | XMS_ITS | Encounter Summary ---
Author Organization [facility] Address [address] [place] [address] Care Team Providers Care Employee Communications Manager Name Role Phone Efrain Sarah MD Unavailable [phone] Aris Lynch MD Unavailable [phone] Drew Howell MD Primary Care Provider [phone] Encounter Details Date Type Department Care Team (Latest Contact Info) Description 12/29/2023 Travel Social History Tobacco Use Types Packs/Day [...] has been complete d for the patient 12/29/2023 10:19 AM EST documented as of this encounter Care Teams Employee Communications Manager Relationship Specialty Start Date End Date Drew Howell MD [address] [place] [id number] PCP - General 12/23/23 Efrain Sarah MD [address] [place] [address] 12/02/23 Aris Lynch MD [address] [facility] Cancer [address] [phone] Surgeon Otolaryngology 12/02/23 documented as of this encounter
--- OUTSIDE RECORDS SUMMARY | 2024-10-04 19:05 | XMS_ITS | Encounter Summary ---
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] Procedures IA BRONCHOSCOPY,COMPUTER ASSIST/IMAGE-GUIDED NAVIGATION IA BRONCHOSCOPY,DIAGNOSTIC W BRUSH IA BRONCHOSCOPY,DIAGNOSTIC W LAVAGE IA BRONCHOSCOPY,BIOPSY IA BRONCHOSCOPY,TRANSBRONCH BIOPSY IA BRONCHOSCOPY,TRANSBRON ASPIR BX IA [facility] GUIDED SAMPL 1/2 NODE STATION/STRUX IA BRNCHSC EBUS GUIDED SAMPL 3/> NODE STATION/STRUX CREATION, TRACHEOSTOMY ION ROBOT BRONCHOSCOPY, NAVIGATIONAL Aris Lynch MD [address] [facility] [address] [place] [address] Phone: tel: fax: [facility] RO[facility] [address] [place] [address] Phone: tel: Referral ID Status Reason Start Date Expiration Date Visits Re quested Visits Authorized [id number] 1 1 Encounter Details Date Type Department Care Team (Late st Contact Info) Description 12/31/2023 9:30 AM EST - 12/31/2023 1:50 PM EST Surgery [facility]PER[facility] RO[facility] [address] [place] [address] Aris Lynch MD [address] [facility] [address] [address] LARYNGOSCOPY, DIRECT, WITH BIOPSY, VOCAL CORD STRIPPING Surgery Details Date/Time Status Location OR Service Patient Class Case Class Case Type Trauma Case? 12/31/2023 9:30 AM Posted TEDDY RODRIGUEZ [address] Outpatient Surgery E-Electiv e Panel 1 Procedure [facility]RB Anes Op Region Wound Class Comments LARYNGOSCOPY, DIRECT, WITH B IOPSY, VOCAL CORD STRIPPING Bilateral General Panel 2 Procedure LRB Anes Op Region Wound Class Comments BRONCHOSCOPY Right Class I/ Clean Surgeon Surgeon Role Service Panel Art Gillette MD Primary Pulmonology 2 Kasi Torres MD Resident - Assisting ENT 1 Aris Lynch MD Primary ENT 1 Olivier Aguilar MD Fellow 2 documented in this encounter Social History Tobacco [...] Sign Reading Time Taken Comments Blood Pressure 133/67 12/31/2023 8:30 AM EST Pulse 70 12/31/2023 8:30 AM EST Temperature 36.6 ??C (97.8 ??F) 12/31/2023 8:30 AM ES T Respiratory Rate 16 12/31/2023 8:30 AM EST Oxygen Saturation 94% 12/31/2023 8:30 AM EST Inhaled Oxygen Concentration - - Weight - - Height - - Body Mass Index - - documented in this encounter Discharge Instructions * Discharge Instructions* Tova Huggins MD - 12/31/2023 7:54 PM EST - Diet: You may resume your regular home diet and tube feeds - Activity: Move around as you are able - Medications: Take tylenol every 6 hours for pain if needed. You can resume your Eliquis in 48 hours (on 01/03/24). - Call if: you have a fever > 101.5F or your pain cannot be controlled with oral medications. Call 911 in case of emergency and you are having difficulty breathing. You will follow up with Dr. Lynch on 01/10/24 Future Appointments Date Time Provider Department Center 01/10/2024 9:20 AM Aris Lynch MD [facility] Third Floor, Wing [address], [address] [address] Call [phone] for questions regarding appointment times documented in this encounter Medications at Time [...] Tube route 5 (five) times a day. 11883 mL 2 12/09/2023 documented as of this encounter Miscellaneous Notes * Progress Notes - Faviola Oscar RN - 01/01/2024 11:19 AM EST Case Management Discharge Note Vamsi Mallory 78 y.o. male CSN: [id number] Admission: 12/31/2023 6:36 AM Primary Problem: Malignant neoplasm of larynx (CMS/HCC) Primary Flight Radio Officer: Assistance Available at Discharge: Family/Flight Radio Officer(s) Willingness Assessed to care for patient at home: Yes Family/Flight Radio Officer(s) Readiness Assessed to care for patient at home: Yes Housing Circumstances-Z Codes: Patient Referred to Financial or Community Resources: Discharge Facility/Level of Care Needs: Discharge Facility/Level of Care Needs: 9-[place] [facility] [place] Choice of Community Agency(s): Patient/Family Anticipated Services at Transition: Patient/Family Anticipated Services at Transition: case managers DME/Equipment Needed after Discharge: Equipment Currently Used at Home: colostomy/ostomy/enteral supplies Equipment Needed After Discharge: colostomy/ostomy/enteral supplies Readmission Within the Last 30 Days: Readmission Within the Last 30 Days: no previous admission in last 30 days Medicare Documentation[facility] current with agency for [facility] feeds. Discharge Transportation: Transportation Anticipated: family or friend will provide Transportation Home at Discharge: Family/Friend will Provide Has discharge transport been arranged?: Yes What day is the transport expected?: 01/01/24 Follow Up Transport: Transportation Needed to Follow up Appoinments: Family/Friend will Provide Additional Comments: Pt has been accepted by [facility]. POC reviewed with primary team. Refer to primary team's discharge note for details. Medically readyto discharge today. Accepted by above [facility]. They will call patient to arrange a home visit. Patient agrees to dc home today and agrees with above DC plan. In??s Christa. SOPHY Oscar, environmental services manager * Discharge Summary - Tova Huggins MD - 01/01/2024 10:06 AM EST Hospitalization Admit Date/Time: 12/31/2023 6:36 AM Admitting Attending: Aris Lynch Discharge Date: 01/01/24 Discharge Attending Physician: Aris Lynch MD PCP name and Address: Drew Howell MD [facility] [address] [place] [address] Referring provider name and address: No referring provider defined for this encounter. Chief Concern, Brief History of Present Illness, and Hospital Course Vamsi Mallory is a 78 y.o. 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 He presented on 12/30 and underwent direct laryngoscopy and bronchoscopy with biopsy and vocal cord stripping. Pulmonology also joined and performed an endobronchial biopsy. Patient was admitted for observation ove rnight and to monitor his airway. Patient's hospital stay was uncomplicated. He continued to maintain appropriate oxygen saturation and didn't not have any respiratory distress. At this time, patientwas deemed appropriate for discharge. He discharged in stable condition. Surgeries and Procedures LARYNGOSCOPY, DIRECT, WITH BIOPSY, VOCAL CORD STRIPPING (Bilateral), BRONCHOSCOPY (Right) Medication List .. albuterol 108 (90 Base) MCG/ACT inhaler Inhale 2 puffs every 6 (six) hours if needed for wheezing or shortness of breath. aspirin 81 MG EC tablet Take 1 tablet (81 mg) by mouth 1 (one) time each day. atorvastatin 80 MG tablet Commonly known as: Lipitor Take 1 tablet (80 mg) by mouth 1 (one) time each day. cetirizine 10 MG tablet Commonly known as: ZyrTEC Take 1 tablet (10 mg) by mouth 1 (one) time each day. cholecalciferol 50 MCG (2000 UT) capsule Commonly known as: Vitamin D-3 Take 1 capsule (2,000 Units) by mouth 1 (one) time each day. cyanocobalamin 1000 MCG tablet Commonly known as: Vitamin B-12 Take 1 tablet (1,000 mcg) by mouth 1 (one) time each day. digoxin 125 MCG tablet Commonly known as: Lanoxin Take 1 tablet (125 mcg) by mouth 1 (one) time each day. Eliquis 5 MG tablet Generic drug: apixaban Take 1 tablet (5 mg) by mouth 2 (two) times a day. May resume taking on 01/03/24. Start taking on: January 03, 2024 furosemide 40 MG tablet Commonly known as: Lasix Take 1 tablet (40 mg) by mouth every other day. isosource 1.5 Perry/mL 250 mL by Per G Tube route 5 (five) times a day. Jardiance 25 MG Generic drug: empagliflozin Take 1 tablet (25 mg) by mouth 1 (one) time each day. losartan 50 MG tablet Commonly known as: Cozaar Take 1 tablet (50 mg) by mouth 1 (one) time each day. metFORMIN XR 750 MG 24 hr tablet Commonly known as: Glucophage-XR Take 1 tablet (750 mg) by mouth 2 (two) times a day. Do not crush, chew, or split. metoprolol succinate XL 100 MG 24 hr tablet Commonly known as: Toprol-XL Take 1 tablet (100 mg) by mouth 1 (one) time each day. Do not crush or chew. oxyCODONE 5 MG immediate release tablet Commonly known as: Roxicodone 1 tablet (5 mg) by Per G Tube route every 6 (six) hours if needed for severe pain. pantoprazole 40 MG EC tablet Commonly known as: Protonix Take 1 tablet (40 mg) by mouth 1 (one) time each day. Do not crush, chew, or split. spironolactone 25 MG tablet Commonly known as: Aldactone Take 1 tablet (25 mg) by mouth 1 (one) time each day. tamsulosin 0.4 MG 24 hr capsule Commonly known as: Flomax Take 1 capsule (0.4 mg) by mouth 1 (one) time each day. Trulicity 1.5 MG/0.5ML solution pen-injector inj. pen Generic drug: dulaglutide Inject 1.5 mg under the skin 1 (one) time per week. Sundays Where to Get Your Medications Information about where to get these medications is not yet available Ask your nurse or doctor about these medications Eliquis 5 MG tablet Discharge Diagnosis Medical Problems Active and Resolved Hospital Problems Hospital * (Principal) Malignant neoplasm of larynx (CMS/HCC) Post Discharge Instructions - Diet: You may resume your regular home diet and tube feeds - Activity: Move around as you are able - Medications: Take tylenol every 6 hours for pain if needed. You can resume your Eliquis in 48 hours (on 01/03/24). - Call if: you have a fever > 101.5F or your pain cannot be controlled with oral medications. Call 911 in case of emergency and you are having difficulty breathing. You will follow up with Dr. Lynch on 01/10/24 Future Appointments Date Time Provider Department Center 01/10/2024 9:20 AM Aris Lnych MD [facility] Third Floor, [facility], [address] [address] Call [phone] for questions regarding appointment times Outpatient Follow-Up Future Appointments Date Time Provider Department Center 01/10/2024 9:20 AM Aris Lynch MD [facility] Test Results Pending At Discharge Pending Labs Order Current Status Fine needle aspiration Collected (12/31/23 1423) Surgical Pathology Exam In process Surgical Pathology Exam In process Surgical Pathology Exam In process Pertinent Physical Exam At Time of Discharge Physical Exam Gen: Alert, interactive, nontoxic Head: Normocephalic, atraumatic Eyes: No scleral icterus, no conjunctival injection Ears: Pinnae without laceration or deformity, no drainage Nose: Nares patent, no drainage Mouth: Mucous membranes pink and moist, tongue with full ROM Neck: Soft, supple, no palpable masses Chest: Symmetric chest rise, unlabored breathing CV: No cyanosis, no edema Ext: Full ROM, no gross deformities Skin: Warm, well perfused Psych: Appropriate mood and affect Discharge Disposition/Condition Disposition: Home Condition: Stable (s/sx potential problems absent or manageable) I spent >30 minutes of patient care and instruction time in preparation for this discharge. Cosigned by Aris Lynch MD at 01/03/2024 8:32 AM EST * Hospital Course - Alejandra Collado MD - 12/31/2023 7:56 PM EST Vamsi Mallory is a 78 y.o. 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 He presented on 12/30 and underwent direct laryngoscopy and bronchoscopy with biopsy and vocal cord stripping. Pulmonology also joined and performed an endobronchial biopsy. Patient was admitted for observation ove rnight and to monitor his airway. Patient's hospital stay was uncomplicated. He continued to maintain appropriate oxygen saturation and didn't not have any respiratory distress. At this time, patientwas deemed appropriate for discharge. He discharged in stable condition. * Anesthesia PACU Signout - Raphael Waite CRNA, MEGHAN - 12/31/2023 6:16 PM EST Patient: Vamsi Mallory Anesthesia Type: general Vitals Value Taken Time BP 118/61 12/31/23 1800 Temp 36.6 ??C (97.9 ??F) 12/31/23 1730 Pulse 65 12/31/23 1814 Resp 15 12/31/23 1814 SpO2 96 % 12/31/23 1814 Vitals shown include unvalidated device data. Anesthesia PACU Signout Patient location during evaluation: PACU Patient participation: complete - patient participated Level of consciousness: awake Pain management: adequate (pain score 0-3) Airway patency: natural airway Hydration status: acceptable PONV: none Cardiovascular status: acceptable and hemodynamically stable Respiratory status: acceptable, spontaneous ventilation, unassisted, nonlabored ventilation and room air Discharge Disposition: admit to inpatient unit * Perioperative Nursing Note - Darin Simpson RN - 12/31/2023 1:48 PM EST Scope: [id number] Leak: Passed Date: 12/31/2023 Expires 01/07/2024 * Op Note - Kasi Torres MD - 12/31/2023 1:48 PM EST OTOLARYNGOLOGY-HEAD AND NECK SURGERY OPERATIVE NOTE [facility] DATE OF /AGE: 10 1945, 78 y.o. DATE OF PROCEDURE: ?12/31/23 LOCATION: [facility] PREOPERATIVE DIAGNOSES:? Malignant neoplasm of larynx (CMS/HCC) POSTOPERATIVE DIAGNOSES:? Same PROCEDURE PERFORMED:? LARYNGOSCOPY, DIRECT, WITH BIOPSY, VOCAL CORD STRIPPING (Bilateral) BRONCHOSCOPY (Right) ATTENDING PHYSICIAN:? Aris Lynch MD RESIDENT PHYSICIAN: Kasi Torres MD ANESTHESIA:? General ASA: IV OR TEAM: Anesthesiologist: Kasi Armando DO HEALTH SCIENCES MANAGER: Estee Velasco CRNA, DNP Retail Department Manager: Shelli Collier; Darin Simpson RN Scrub Person: Ida Griffin ESTIMATED BLOOD LOSS: Less than 5 mL. IMPLANTS, DRAINS AND STENTS:? Nothing was implanted during the procedure SPECIMENS:? ID Type Source Tests Collected by Time 1 : Laryngeal Mass for permanent Tissue Larynx SURGICAL PATHOLOGY EXAM Aris Lynch MD [id number] : RUL - endobronchial Bx Fine Needle Aspirate Lung, Right Upper Lobe FINE NEEDLE ASPIRATION - CYTOLOGY, ENDOBRONCHIAL BX Aris Lynch MD 12/31/2023 1423 3 : Right Lower Lobe - Superior Segment - endobrochial Bx Fine Needle Aspirate Lung, Right Lower Lobe FINE NEEDLE ASPIRATION - CYTOLOGY, ENDOBRONCHIAL BX Aris Lynch MD 12/31/2023 1432 FINDINGS: Large left supraglottic mass which was INDICATIONS FOR PROCEDURE:? Vamsi Mallory is a 78 y.o. 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 After a discussion of the risks, benefits, and alternatives, patient elected toproceed with surgery. OPERATIVE DESCRIPTION: After informed consent was obtained, the patient was transported to the operating suite and placed in a supine position on the operating table. General anesthesia was induced by the anesthesia service. The patient was intubated by our team with a 5-0 SUPERVISOR CLAM BED using the glidescope. The mass was obscuringthe left vocal fold and some resistance was met that was able to be bypassed by twisting the tube. The patient was turned 180 degrees away from anesthesia, and a time out was performed to ensure the correct patient and correct procedure. After all in the room were in agreement, a bimanual exam was performed to evaluate the patient's oral cavity, tonsillar pillars and base of tongue. Then, a moistRay- Aravind was used to protect the patient's maxillary alveolar ridge and a Dedo laryngoscope was chosen for the procedure. The oropharynx was examined including the uvula, soft palate, tonsils/tonsillar fossae, base of tongue, vallecula, and pharyngeal dean. The scope was advanced bringing the larynx into view. The lingual and laryngeal surface of epiglottis, arytenoids, aryepiglottic folds, falsevocal folds and true vocal folds were examined. The above findings were noted. We immediately encountered the supraglottic mass. The operating telescope was used for further characterization of theseanatomic structures. Vocal fold stripping and debulking of the tumor was then performed. The tissuefrom the mass was debulked with large cupped forceps and passed off the field for pathologic analysis. We proceeded in this fashion from a proximal to distal fashion and an anterior to posterior fashion in order to bring the vocal folds into better view. The 5-0 SUPERVISOR CLAM BED was exchanged for an 8-0 ETT. This completed our portion of the procedure. The care of the patient was returned to the pulmonology service for their portion of the procedure, see separately dictated note for details. Following theirportion the patient was returned to the anesthesia service who awakened and extubated the patient without incident. The patient was then transported to the PACU in stable condition. There were no immediate complications. Dr. Lynch was present and available for all portions of this procedure. COMPLICATIONS:? None immediate Cosigned by Aris Lynch MD at 12/31/2023 3:55 PM EST Associated attestation - Aris Lynch MD - 12/31/2023 3:55 PM EST I was present and scrubbed in for all critical portions of the procedure. As the airway was able to accommodate an 8-0 tube following debulking of the tumor and stripping ofthe left TVF (as park of tumor debulking), the need for a tracheostomy was obviated and thus was not performed. Aris Lynch MD It Service Technician Head & Neck Surgical Oncology, Thyroid/Parathyroid Surgery, Transoral Robotic Surgery, and Microvascular Reconstruction Department of Otolaryngology - Division of Head & Neck Surgery [facility] - Head, Neck, & Respiratory Clinic [facility] * Op Note - Olivier Aguilar MD - 12/31/2023 1:48 PM EST Operative Note Date: 12/31/23 Location: [facility] Name: Vamsi Mallory, : 1945, Diagnoses: Pre-op Diagnosis Malignant neoplasm of larynx (CMS/HCC) Post-op Diagnosis Malignant neoplasm of larynx (CMS/HCC) Procedure(s): Bronchoscopy Endobronchial biopsy. Attending Surgeon(s): Panel 1: * Aris Lynch - Primary Panel 2: * Art Gillette - Primary Recycling Program Manager(s): Panel 1: * Kasi Torres MD - Resident - Assisting Panel 2: * Olivier Aguilar MD - Fellow Anesthesia: General ASA: IV Blood Administration: Blood Product Administration History None Estimated Blood Loss: Minimal Drains: * None in log * Specimen: Specimens ID Source Frozen? 1 Larynx No Description: Laryngeal Mass for permanent 2 Lung, Right Upper Lobe No Description: RUL - endobronchial Bx 3 Lung, Right Lower Lobe No Description: Right Lower Lobe - Superior Segment - endobrochial Bx Findings: Normal trachea. Normal main stem mee. Normal left sided anatomy. The right upper lobe anterior segment, lateral sub-segment showed an endobronchial lesion that block the osseus of the that subsegment. Normal right mainstem, BI, middle lobe and lower lobe. There was some endobronchial lesion at the entrance of the right lower lobe superior segment. The area was very friable. Indications: Vamsi Mallory is an 78 y.o. male who is having surgery for Malignant neoplasm of larynx (CMS/HCC). Narrative: The patient was placed in the supine position. Under general anesthesia the patient was intubated with a 8 ET tube. A complete time out was performed before starting the procedure. A diagnostic bronchoscope was inserted through the ET tube to perform a full airway examination. Diagnostic scope was advanced to the right upper lobe anterior segment, lateral subsegment. Forcepswere introduced into the working channel and endobronchial biopsies were obtained from the endobronchial lesion. The scope was then advanced to the right lower lobe superior segment. Forceps were introduced into the working channel and endobronchial biopsies were obtained at the entrance of the right lower lobe superior segment. After the intended procedures were performed, and hemostasis was confirmed the bronchoscope was removed and the patient handed over to the anesthesiologists. Complications: None; patient tolerated the procedure well. Submitted by: Olivier Aguilar MD - 12/31/2023 Cosigned by Art Gillette MD at 12/31/2023 4:06 PM EST Associated attestation - Art Gillette MD - 12/31/2023 4:06 PM EST I was present for the entirety of the procedure(s). * Brief Op Note - Olivier Aguilar MD - 12/31/2023 1:48 PM EST Date: 12/31/23 Location: [facility] Name: Vamsi Mallory, : 1945, Diagnoses: Pre-op Diagnosis Malignant neoplasm of larynx (CMS/HCC) Post-op Diagnosis Malignant neoplasm of larynx (CMS/HCC) Procedure(s): Bronchoscopy Endobronchial Biopsy Attending Surgeon(s): Panel 1: * Aris Lynch - Primary Panel 2: * Art Gillette - Primary Recycling Program Manager(s): Panel 1: * Kasi Torres MD - Resident - Assisting Panel 2: * Olivier Aguilar MD - Fellow Anesthesia: General ASA: IV Blood Administration: Blood Product Administration History None Estimated Blood Loss: Minimal Drains: * None in log * Specimen: Specimens ID Source Frozen? 1 Larynx No Description: Laryngeal Mass for permanent 2 Lung, Right Upper Lobe No Description: RUL - endobronchial Bx 3 Lung, Right Lower Lobe No Description: Right Lower Lobe - Superior Segment - endobrochial Bx Findings: Normal trachea. Normal main stem mee. Normal left sided anatomy. The right upper lobe anterior segment, lateral sub-segment showed an endobronchial lesion that block the osseus of the that subsegment. Normal right mainstem, BI, middle lobe and lower lobe. There was some endobronchial lesion at the entrance of the right lower lobe superior segment. The area was very friable. Complications: None; patient tolerated the procedure well. Submitted by: Olivier Aguilar MD - 12/31/2023 Cosigned by Art Gillette MD at 12/31/2023 4:06 PM EST Associated attestation - Art Gillette MD - 12/31/2023 4:06 PM EST I was present for the entirety of the procedure(s). * H&P - Kasi Torres MD - 12/31/2023 8:46 AM EST Otolaryngology-Head and Neck Surgery 12/31/23 HISTORY OF PRESENT ILLNESS Vamsi Mallory is a 78 y.o. 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 He is presenting for scheduled surgery, REVIEW OF SYSTEMS A 14-point review of systems was performed and is negative except as noted in HPI. PAST MEDICAL HISTORY Past Medical History: Diagnosis Date Allergies Arthritis [...] Shortness of breath Sinus problem PAST SURGICAL HISTORY Past Surgical History: Procedure Laterality Date CARDIAC PACEMAKER PLACEMENT CORONARY ARTERY BYPASS GRAFT N/A CABG (CABG) from [facility] KNEE SURGERY N/A Knee Surgery from [facility] LARYNGOSCOPY SHOULDER SURGERY N/A Shoulder Surgery from [facility] FAMILY HISTORY Family History Problem Relation Name Age of Onset Diabetes Mother Heart attack Mother Gout Father Conversions - Other Sister Accident Conversions - Other Brother Accident Arthritis Other Conversions - Other Other herpes zoster infection Other cancer Other Anesthesia problems Neg Hx Malig Hyperthermia Neg Hx ALLERGIES Allergies Allergen Reactions Penicillins Hives and Rash Immunization History Administered Date(s) Administered Influenza, seasonal, injectable 11/01/2012, 11/01/2013 Chyna COVID-19 Vaccine (Blue Cap) 18+ 06/18/2021 Pneumococcal Polysaccharide PPV23 11/01/2012, 11/01/2013 MEDICATIONS: Current Facility-Administered Medications: Insert peripheral IV, , , Once AND Saline lock IV, , , Once AND sodium chloride 0.9 % flush10 mL, 10 mL, Intravenous, q12h AND sodium chloride 0.9 % flush 10 mL, 10 mL, Intravenous, PRN,Manuel Bonilla, DO Prior to Admission medications Medication Sig Start Date End Date Taking? Authorizing Provider aspirin 81 MG EC tablet Take 1 tablet (81 mg) by mouth 1 (one) time each day. Yes Young Ricketts MD cholecalciferol (Vitamin D-3) 50 MCG (2000 UT) capsule Take 1 capsule (2,000 Units) by mouth 1 (one) time each day. Yes Young Ricketts MD albuterol 108 (90 Base) MCG/ACT inhaler Inhale 2 puffs every 6 (six) hours if needed for wheezing or shortness of breath. Young Ricketts MD atorvastatin (Lipitor) 80 MG tablet Take 1 tablet (80 mg) by mouth 1 (one) time each day. Patient not taking: Reported on 12/30/2023 Young Ricketts MD cetirizine (ZyrTEC) 10 MG tablet Take 1 tablet (10 mg) by mouth 1 (one) time each day. Patient not taking: Reported on 12/30/2023 Young Ricketts MD cyanocobalamin 1000 MCG tablet Take 1 tablet (1,000 mcg) by mouth 1 (one) time each day. Young Ricketts MD digoxin (Lanoxin) 125 MCG tablet Take 1 tablet (125 mcg) by mouth 1 (one) time each day. Patient not taking: Reported on 12/30/2023 Young Ricketts MD dulaglutide (Trulicity) 1.5 MG/0.5ML solution pen-injector inj. pen Inject 1.5 mg under the skin 1 (one) time per week. Sundays Patient not taking: Reported on 12/30/2023 Young Ricketts MD Eliquis 5 MG tablet Take 1 tablet (5 mg) by mouth 2 (two) times a day. Patient not taking: Reported on 12/30/2023 11/08/23 Young Ricketts MD empagliflozin (Jardiance) 25 MG Take 1 tablet (25 mg) by mouth 1 (one) time each day. Patient not taking: Reported on 12/30/2023 Young Ricketts MD furosemide (Lasix) 40 MG tablet Take 1 tablet (40 mg) by mouth every other day. Patient not taking: Reported on 12/30/2023 Young Ricketts MD losartan (Cozaar) 50 MG tablet Take 1 tablet (50 mg) by mouth 1 (one) time each day. Patient not taking: Reported on 12/30/2023 Young Ricketts MD metFORMIN XR (Glucophage-XR) 750 MG 24 hr tablet Take 1 tablet (750 mg) by mouth 2 (two) times a day. Do not crush, chew, or split. Patient not taking: Reported on 12/30/2023 Young Ricketts MD metoprolol succinate XL (Toprol-XL) 100 MG 24 hr tablet Take 1 tablet (100 mg) by mouth 1 (one) time each day. Do not crush or chew. Patient not taking: Reported on 12/30/2023 Young Ricketts MD Nutritional Supplements (isosource 1.5 Perry/mL) 250 mL by Per G Tube route 5 (five) times a day. Patient taking differently: 250 mL by Per G Tube route 5 (five) times a day. Patient does 4 times aday 12/09/23 03/08/24 Aris Lynch MD oxyCODONE (Roxicodone) 5 MG immediate release tablet 1 tablet (5 mg) by Per G Tube route every 6 (six) hours if needed for severe pain. Patient not taking: Reported on 12/28/2023 12/13/23 William Laboy MD pantoprazole (Protonix) 40 MG EC tablet Take 1 tablet (40 mg) by mouth 1 (one) time each day. Do not crush, chew, or split. Patient not taking: Reported on 12/30/2023 Young Ricketts MD spironolactone (Aldactone) 25 MG tablet Take 1 tablet (25 mg) by mouth 1 (one) time each day. Patient not taking: Reported on 12/30/2023 10/21/23 Young Ricketts MD tamsulosin (Flomax) 0.4 MG 24 hr capsule Take 1 capsule (0.4 mg) by mouth 1 (one) time each day. Patient not taking: Reported on 12/30/2023 Young Ricketts MD potassium chloride CR (Klor-Con) 8 MEQ ER tablet Take 1 tablet (8 mEq) by mouth 1 (one) time each day. Patient not taking: Reported on 12/28/2023 11/08/23 12/28/23 Provider, MD Young SOCIAL HISTORY: He reports that he has been smoking cigarettes. He started smoking about 70 years ago. He has a 70.00 pack-year smoking history. He has never used smokeless tobacco. He reports no history of alcohol use. ASA: ASA status not filed in the log. PHYSICAL EXAMINATION: 12/13/2023 4:45 PM 12/13/2023 5:05 PM 12/13/2023 5:10 PM 12/29/2023 10:22 AM 12/30/2023 8:21 AM 12/30/2023 12:47 PM 12/31/2023 8:30 AM Vitals Systolic 119 109 115 120 113 133 Diastolic 57 61 70 74 64 67 Heart Rate 70 70 71 70 70 70 70 Temp 36.6 C 36.4 C 36.3 C 36.3 C 36.6 C Resp 16 17 20 18 16 16 16 Height (cm) 185.4 cm 185.4 cm 185.4 cm Weight (kg) 74.4 kg 74.5 kg 74.5 kg BMI 21.64 kg/m2 21.68 kg/m2 21.68 kg/m2 BSA (m2) 1.96 m2 1.96 m2 1.96 m2 Visit Report Report Report Report Report Report Report Report Wt Readings from Last 3 Encounters: 12/30/23 74.5 kg (164 lb 3.9 oz) 12/30/23 74.5 kg (164 lb 3.9 oz) 12/29/23 74.4 kg (164 lb 0.4 oz) There is no height or weight on file to calculate BMI. Gen: Alert, interactive, nontoxic Head: Normocephalic, atraumatic Eyes: No scleral icterus, no conjunctival injection Ears: Pinnae without laceration or deformity, no drainage Nose: Nares patent, no drainage Mouth: Mucous membranes pink and moist, tongue with full ROM Neck: Soft, supple, no palpable masses Chest: Symmetric chest rise, unlabored breathing CV: No cyanosis, no edema Ext: Full ROM, no gross deformities Skin: Warm, well perfused Psych: Appropriate mood and affect RESULTS IMAGING US Guided Fine Needle Aspiration Result Date: 12/24/2023 Impression: 1. Uncomplicated ultrasound-guided FNA of the dominant nodule within the right parotid gland. CRITICAL RESULT: No. COMMUNICATION: Per this written report. Drafted by Germain Ruiz 12/23/2023 10:32 AM Final report signed by Bindu Mcfarlane MD on 12/23/2023 10:34 AM US Head Neck Soft Tissue Result Date: 12/24/2023 Impression: 1. Uncomplicated ultrasound-guided FNA of the dominant nodule within the right parotid gland. CRITICAL RESULT: No. COMMUNICATION: Per this written report. Drafted by Germain Ruiz 12/23/2023 10:32 AM Final report signed by Bindu Mcfarlane MD on 12/23/2023 10:[address] Chest w IV Contrast Result Date: 12/08/2023 Impression: 1. A 0.8 cm left upper lobe nodule and 3.2 cm left adrenal nodule are indeterminate. Metastatic disease is not excluded. Mildly prominent mediastinal and right hilar lymph nodes. CRITICALRESULT: No. COMMUNICATION: Per this written report. Drafted by Jr Massey MD on 12/08/2023 1:03 PMFinal report signed by Jr Massey MD on 12/08/2023 1:10 PM Lab Results Component Value Date TSH 1.52 12/08/2023 ASSESSMENT/PLAN Vamsi Mallory is a 78 y.o. 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 He is presenting for scheduled surgery, with interventional pulmonary for biopsy. Prior to this we will obtain an airway either through tumor debulking and upsizing to an 8-0 ETT, or placing an 8-0 tracheostomy if necessary. To OR today for: CREATION, TRACHEOSTOMY (Bilateral) ION ROBOT BRONCHOSCOPY, NAVIGATIONAL LARYNGECTOMY CREATION, FLAP, MYOCUTANEOUS, PECTORALIS FLAP PROCEDURE, MUSCLE, MYOCUTANEOUS, OR FASCIOCUTANEOUS, HEAD AND NECK REGION LYMPHADENECTOMY RIGID ESOPHAGOSCOPY, WITH DILATION Procedure Summary Date: 12/31/23 Room / Location: [address] [place] [address] Anesthesia Start: Anesthesia Stop: Procedures: CREATION, TRACHEOSTOMY (Bilateral) ION ROBOT BRONCHOSCOPY, NAVIGATIONAL LARYNGECTOMY CREATION, FLAP, MYOCUTANEOUS, PECTORALIS FLAP PROCEDURE, MUSCLE, MYOCUTANEOUS, OR FASCIOCUTANEOUS, HEAD AND NECK REGION LYMPHADENECTOMY RIGID ESOPHAGOSCOPY, WITH DILATION Diagnosis: Malignant neoplasm of larynx (CMS/HCC) Primary squamous cell carcinoma of larynx (CMS/HCC) (Malignant neoplasm of larynx (CMS/HCC) [C32.9]) (scca larynx) Surgeons: Art Gillette MD; Aris Lynch MD Responsible Provider: Anesthesia Type: Not recorded ASA Status: Not recorded Kasi Torres MD Otolaryngology-Head & Neck Surgery PGY-4 Resident P. [phone] Cosigned by Aris Lynch MD at 12/31/2023 3:31 PM EST * Progress Notes - Faviola Oscar RN - 12/31/2023 8:45 AM EST Patient to the OR today. CM will follow for discharge planning and obtain an initial assessment when patient is available. In??s SOPHY Coleman, environmental services manager * Interval H&P Note - Tyron Gil MD - 12/31/2023 8:42 AM EST H&P reviewed. The patient was examined and there are no changes to the H&P. Source Note - Jayashree Vogel MD - 12/13/2023 1:24 PM EST Images from the original note were not included. Chief Concern & History Of Present Illness Vamsi Mallory is a 78 y.o. 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 He presents today for PEG tube placement. He feels well, with no changes to his health since his last clinic visit on 12/08/23. He does not take any blood thinners. He has an allergy to penicillin. Past Medical History He has a past [...] (N/A); Knee surgery (N/A); Shoulder surgery (N/A); and Cardiac pacemaker placement. Family History Family History Problem Relation Name Age of Onset Diabetes Mother Heart attack Mother Gout Father Conversions - Other Sister Accident Conversions - Other Brother Accident Arthritis Other Conversions - Other Other herpes zoster infection Other cancer Other Anesthesia problems Neg Hx Malig Hyperthermia Neg Hx Social History He reports that he has been smoking cigarettes. He has a 70.00 pack-year smoking history. He has never used smokeless tobacco. He reports that he does not drink alcohol and does not use drugs. Occupational History Employer: No address on file. Travel History Relevant International Travel History: Travel Screening Question Response Have you been in contact with someone who was sick? No / Unsure Do you have any of the following new or worsening symptoms? None of these Have you traveled internationally or domestically in the last month? No Travel History Travel since 11/12/23 No documented travel since 11/12/23 Relevant Domestic Travel History: None Immunizations reviewed VACCINE/DOSE DATE DATE Flu 11/01/2012 11/01/2013 Tetanus Pneumovax 11/01/2012 11/01/2013 Shingles Allergies Penicillins Medications Current Facility-Administered Medications Medication Dose Route Frequency Provider Last Rate Last Admin lactated Ringer's infusion 20 mL/hr Intravenous Continuous Zafar Zuniga DO 20 mL/hr at 12/13/23 1259 20 mL/hr at 12/13/23 1259 sodium chloride 0.9 % flush 1 mL 1 mL Intravenous q8h PRN Zafar Zuniga, DO Review of Systems 14 point review of systems was obtained and is negative except for as above in HPI. Physical Exam GEN: no apparent distress, well nourished male HENT: atraumatic, normocephalic EYES: no scleral icterus, no visible conjunctival hemorrhage RESP: no respiratory distress, symmetric chest rise CV: appears well perfused, normal rate ABD: non-tender, non-distended, no obvious masses MSK/EXT: no apparent deformities, strength/tone normal : deferred NEURO: alert and oriented, no focal CN deficits PSYCH: appropriate affect, mood congruent, interactive Last Recorded Vitals Blood pressure 127/67, pulse 69, temperature 36.6 ??C (97.8 ??F), temperature source Oral, resp. rate 16, height 1.854 m (6' 1 ), weight 74 kg (163 lb 2.3 oz), SpO2 96 %. Relevant Results None Assessment/Plan Active Problems: There are no active Hospital Problems. Vamsi Mallory is a 78 y.o. 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 He presents today for PEG tube placement. Consent was obtained in pre-op and is located in the patient's paper chart. All of the patient's questions were answered. He is ready to proceed with surgery. Jayashree Vogel MD General Surgery Cosigned by Zafar Zuniga DO at 12/13/2023 2:25 PM EST documented in this encounter Plan of Treatment Scheduled Orders Name Type Priority Associated Diagnoses Order Schedule Fine needle aspiration Pathology and Cytology Timed Malignant neoplasm of larynx (CMS/HCC) Release Upon Ordering for 1 Occurrences starting 12/31/2023 Scheduled Referrals Name Type Priority Associated Diagnoses Order Schedule Discharge Ambulatory referral to NON [facility] Outpatient Referral Routine Malignant neoplasm of larynx (CMS/HCC) 1 Occurrences starting 01/01/2024 until 07/03/2025 documented as of this encounter Procedures Procedure Name Priority Date/Time Associated Diagnosis Comments SURGICAL PATHOLOGY EXAM Routine 12/31/2023 5:10 PM EST POCT GLUCOSE METER UNSOLICITED RESULTS Routine 12/31/2023 3:08 PM EST SURGICAL PATHOLOGY EXAM Routine 12/31/2023 1:57 PM EST Malignant neoplasm of larynx (CMS/HCC) IA BRONCHOSCOPY,BIOPSY 12/31/2023 1:12 PM EST Malignant neoplasm of larynx (CMS/HCC) IA BRONCHOSCOPY,DIAGNOS TIC 12/31/2023 1:12 PM EST Malignant neoplasm of larynx (CMS/HCC) LARYNGOSCOPY, DIRECT, WITH BIOPSY 12/31/2023 1:12 PM EST Malignant neoplasm of larynx (CMS/HCC) POCT GLUCOSE METER UNSOLICITED RESULTS Routine 12/31/2023 8:08 AM EST SURGICAL PATHOLOGY EXAM Routine 12/31/2023 documented in this encounter Results * Surgical Pathology Exam (12/31/2023 5:10 PM EST) Case Report Surgical Pathology ?Case: [id number] ? Authorizing Provider: ??Aris Lynch MD ?Collected: ? 12/31/2023 1357 ? Ordering Location: ? [facility] ? Received: ?12/31/2023 1522 ? Pathologist: ? Drea Loera MD ? Specimens: ?? A) - Larynx, Laryngeal Mass for permanent ? B) - Lung, Right Upper Lobe, lung, right upper lobe ? C) - Lung, Right Lower Lobe, lung, right lower lobe ? 4 12:34 PM EST [facility] Final Diagnosis A. LARYNGEAL MASS, BIOPSY: - MODERATELY DIFFERENTIATED SQUAMOUS CELL CARCINOMA. B. LUNG, RIGHT UPPER LOBE, BIOPSY: - MODERATELY DIFFERENTIATED SQUAMOUS CELL CARCINOMA. C. LUNG, RIGHT LOWER LOBE, BIOPSY: - MODERATELY DIFFERENTIATED SQUAMOUS CELL CARCINOMA. 4 12:34 PM [facility] Comment It is noted that the patient has a laryngeal mass with concern for pulmonary/mediastin al metastases. All biopsies show keratinizing squamous cell carcinoma and have morphologic similarities. There is no way to morphologically or immunohistochemical ly differentiate a laryngeal metastasis from a primary pulmonary squamous cell carcinoma. Clinical and radiologic correlation is necessary. PDL1 has not been ordered on the lung biopsies. 4 12:34 PM [facility] Tumor Blocks Tumor blocks: C1, A2 4 12:34 PM [facility] Clinical Information Malignant neoplasm of larynx (CMS/HCC) [C32.9] 4 12:34 PM [facility] Gross Description A. LARYNGEAL MASS FOR PERMANENT Received in formalin labeled ? larynx, laryngeal mass , are multiple pink/red soft tissue fragments measuring 2.8 x 1.8 x 0.5 cm in aggregate. Specimen placed in biofilm and submitted entirely in cassettes A1-A3. Tresa Castro. LUNG, RIGHT UPPER LOBE Received in formalin labeled ? lung, right upper lobe? , are multiple rea/red soft tissue fragments measuring 0.2-0.3 cm in greatest dimension. Specimen submitted entirely in cassettes B1 and B2. Tresa Davidson. LUNG, RIGHT LOWER LOBE Received in formalin labeled ? lung right lower lobe? , are 4 rea-red soft tissue fragments measuring 0.2-0.3 cm in greatest dimension. Specimen submitted entirely in cassette C1. Tresa Muir 4 12:34 PM [facility] Intradepartmental Consultation with Agreement Dr. Whitney Dennis 12:34 PM EST [facility] Tissue Structure of lower lobe of right lung / Unknown Non-blood Collection / Unknown 12/31/2023 5:10 PM EST 12/31/2023 5:10 PM EST Tissue specimen (specimen) Laryngeal structure / Unknown 12/31/2023 1:57 PM EST 12/31/2023 3:22 PM EST Tissue specimen (specimen) Structure of upper lobe of right lung / Unknown 12/31/2023 12/31/2023 5:12 PM EST us Art Gillette MD LAB PATHOLOGY ORDERABLES Dee l Result Performing Organization Address [facility] Co de Phone Number [facility] [address] [place] [address] * (ABNORMAL) POCT glucose meter (12/31/2023 3:08 PM EST) POCT Glucose 116(H) 74 - 99 mg/dL 12/31/2023 3:10 PM EST [facility] Comment:Accuracy of a glucos e result obtained from a capillary whole blood specimen relies upon adequate, non-compromised capillary blood flow. If the capillary glucose result is not consistent with the patient's clinical signs and symptoms, glucose testing should be repeated with either an arterial or venous sample on the glucometer or sent to the main labortory for testing. Comment 12/31/2023 3:10 PM EST [facility] Human Resources Coordinator ID Linda Byrd 12/31/2023 3:10 PM EST [facility] Device ID [id number] 12/31/2023 3:10 PM EST [facility] Specimen Type POC Capillary 12/31/2023 3:10 PM EST [facility] Blood Capillary blood specimen / Unknown 12/31/2023 3:08 PM EST 12/31/2023 3:10 PM EST us Aris Lynch MD LAB POINT OF CARE TE ST DOCKED DEVICE UNSOLICITED RESULTS Final Result Performing Organization Address City/[facility]/ZIP Co de Phone Number [facility] [address] [place] [address] * Surgical Pathology Exam (12/31/2023 1:57 PM EST) Case Report Surgical Pathology ?Case: [id number] ? Authorizing Provider: ??Aris Lynch MD ?Collected: ? 12/31/2023 1357 ? Ordering Location: ? [facility] ? Received: ?12/31/2023 1522 ? Pathologist: ? Drea Loera MD ? Specimens: ?? A) - Larynx, Laryngeal Mass for permanent ? B) - Lung, Right Upper Lobe, lung, right upper lobe ? C) - Lung, Right Lower Lobe, lung, right lower lobe ? 4 12:34 PM EST [facility] Final Diagnosis A. LARYNGEAL MASS, BIOPSY: - MODERATELY DIFFERENTIATED SQUAMOUS CELL CARCINOMA. B. LUNG, RIGHT UPPER LOBE, BIOPSY: - MODERATELY DIFFERENTIATED SQUAMOUS CELL CARCINOMA. C. LUNG, RIGHT LOWER LOBE, BIOPSY: - MODERATELY DIFFERENTIATED SQUAMOUS CELL CARCINOMA. 4 12:34 PM EST [facility] Comment It is noted that the patient has a laryngeal mass with concern for pulmonary/mediastin al metastases. All biopsies show keratinizing squamous cell carcinoma and have morphologic similarities. There is no way to morphologically or immunohistochemical ly differentiate a laryngeal metastasis from a primary pulmonary squamous cell carcinoma. Clinical and radiologic correlation is necessary. PDL1 has not been ordered on the lung biopsies. 4 12:34 PM EST [facility] Tumor Blocks Tumor blocks: C1, A2 4 12:34 PM EST [facility] Clinical Information Malignant neoplasm of larynx (CMS/HCC) [C32.9] 12:34 PM EST [facility] Gross Description A. LARYNGEAL MASS FOR PERMANENT Received in formalin labeled ? larynx, laryngeal mass , are multiple pink/red soft tissue fragments measuring 2.8 x 1.8 x 0.5 cm in aggregate. Specimen placed in biofilm and submitted entirely in cassettes A1-A3. Tresa Muir B. LUNG, RIGHT UPPER LOBE Received in formalin labeled ? lung, right upper lobe? , are multiple rea/red soft tissue fragments measuring 0.2-0.3 cm in greatest dimension. Specimen submitted entirely in cassettes B1 and B2. Tresa Davidson. LUNG, RIGHT LOWER LOBE Received in formalin labeled ? lung right lower lobe? , are 4 rea-red soft tissue fragments measuring 0.2-0.3 cm in greatest dimension. Specimen submitted entirely in cassette C1. Tresa Muir 4 12:34 PM EST [facility] Intradepartmental Consultation with Agreement Dr. Whitney Dennis 4 12:34 PM EST [facility] Tissue Laryngeal structure / Unknown 12/31/2023 1:57 PM EST 12/31/2023 3:22 PM EST Comment:Pre-op diagnosis: Malignant neoplasm of larynx (CMS/HCC) [C32.9] Tissue specimen (specimen) Structure of upper lobe of right lung / Unknown 12/31/2023 12/31/2023 5:12 PM EST Tissue specimen (specimen) Structure of lower lobe of right lung / Unknown 12/31/2023 5:10 PM EST 12/31/2023 5:10 PM EST us Aris Lynch MD LAB PATHOLOGY ORDERABLES Final Result Performing Organization Address [facility] Phone Number [facility] [address] [place] [address] * POCT glucose meter (12/31/2023 8:08 AM EST) POCT Glucose 94 74 - 99 mg/dL 01/03/2024 5:19 AM EST [facility] Comment:Accuracy of a glucos e result obtained from a capillary whole blood specimen relies upon adequate, non-compromised capillary blood flow. If the capillary glucose result is not consistent with the patient's clinical signs and symptoms, glucose testing should be repeated with either an arterial or venous sample on the glucometer or sent to the main labortory for testing. Comment 01/03/2024 5:19 AM EST [facility] Human Resources Coordinator ID Marge Ceballos [id number] 5:19 AM EST [facility] Device ID [id number] 01/03/2024 5:19 AM EST [facility] Specimen Type POC Capillary 01/03/2024 5:19 AM EST [facility] Blood Capillary blood specimen / Unknown 12/31/2023 8:08 AM EST 01/03/2024 5:19 AM EST us Aris Lynch MD LAB POINT OF CARE TE ST DOCKED DEVICE UNSOLICITED RESULTS Final Result Performing Organization Address [facility] Phone Number [facility] [address] [place] [address] * Surgical Pathology Exam (12/31/2023) Case Report Surgical Pathology ?Case: [id number] ? Authorizing Provider: ??Aris Lynch MD ?Collected: ? 12/31/2023 1357 ? Ordering Location: ? [facility] ? Received: ?12/31/2023 1522 ? Pathologist: ? Drea Loera MD ? Specimens: ?? A) - Larynx, Laryngeal Mass for permanent ? B) - Lung, Right Upper Lobe, lung, right upper lobe ? C) - Lung, Right Lower Lobe, lung, right lower lobe ? 4 12:34 PM EST [facility] Final Diagnosis A. LARYNGEAL MASS, BIOPSY: - MODERATELY DIFFERENTIATED SQUAMOUS CELL CARCINOMA. B. LUNG, RIGHT UPPER LOBE, BIOPSY: - MODERATELY DIFFERENTIATED SQUAMOUS CELL CARCINOMA. C. LUNG, RIGHT LOWER LOBE, BIOPSY: - MODERATELY DIFFERENTIATED SQUAMOUS CELL CARCINOMA. 4 12:34 PM EST [facility] Comment It is noted that the patient has a laryngeal mass with concern for pulmonary/mediastin al metastases. All biopsies show keratinizing squamous cell carcinoma and have morphologic similarities. There is no way to morphologically or immunohistochemical ly differentiate a laryngeal metastasis from a primary pulmonary squamous cell carcinoma. Clinical and radiologic correlation is necessary. PDL1 has not been ordered on the lung biopsies. 4 12:34 PM EST [facility] Tumor Blocks Tumor blocks: C1, A2 4 12:34 PM EST [facility] Clinical Information Malignant neoplasm of larynx (CMS/HCC) [C32.9] 4 12:34 PM EST [facility] Gross Description A. LARYNGEAL MASS FOR PERMANENT Received in formalin labeled ? larynx, laryngeal mass , are multiple pink/red soft tissue fragments measuring 2.8 x 1.8 x 0.5 cm in aggregate. Specimen placed in biofilm and submitted entirely in cassettes A1-A3. Tresa Muir B. LUNG, RIGHT UPPER LOBE Received in formalin labeled ? lung, right upper lobe? , are multiple rea/red soft tissue fragments measuring 0.2-0.3 cm in greatest dimension. Specimen submitted entirely in cassettes B1 and B2. Tresa Muir C. LUNG, RIGHT LOWER LOBE Received in formalin labeled ? lung right lower lobe? , are 4 rea-red soft tissue fragments measuring 0.2-0.3 cm in greatest dimension. Specimen submitted entirely in cassette C1. Tresa Muir 4 12:34 PM EST [facility] Intradepartmental Consultation with Agreement Dr. Whitney Dennis 4 12:34 PM EST [facility] Tissue Structure of upper lobe of right lung / Unknown 12/31/2023 12/31/2023 5:12 PM EST Tissue specimen (specimen) Laryngeal structure / Unknown 12/31/2023 1:57 PM EST 12/31/2023 3:22 PM EST Tissue specimen (specimen) Structure of lower lobe of right lung / Unknown 12/31/2023 5:10 PM EST 12/31/2023 5:10 PM EST us Art Gillette MD LAB PATHOLOGY ORDERABLES Dee chiu Result [facility] [address] [place] [address] documented in this encounter Visit Diagnoses Diagnosis Malignant neoplasm of larynx (CMS/HCC)- Primary Malignant neoplasm of larynx, unspecified site Malignant neoplasm of larynx (CMS/HCC) Malignant neoplasm of larynx, unspecified site documented in this encounter Admitting Diagnoses Diagnosis Malignant neoplasm of larynx (CMS/HCC) Malignant neoplasm of larynx, unspecified site documented in this encounter Administered Medications Inactive Administered Medications - up to 3 most recent administrations Medication Order MAR Action Action Date Dose Rate Site sodium chloride 0.9 % flush 10 mL 10 mL, Intravenous, Every 12 hours, First dose on Wed12/31/23 at 0845, Until Discontinued, Routine, On Unit - Preprocedure Given 01/01/2024 8:55 AM EST 10 mL Given 12/31/2023 7:56 PM EST 10 mL sodium chloride 0.9 % flush 10 mL 10 mL, Intravenous, As needed, Starting on Wed12/31/23 at 0819, Until 01/01/24 at 1319, Routine, On Unit - Preprocedure, line care documented in this encounter Active and Recently Administered Medications Times are shown in EST. Scheduled Medication Order 12/30/2023 12/31/2023 01/01/2024 sodium chloride 0.9 % flush 10 mL(Linked Group 1) 10 mL, Intravenous, Every 12 hours, First dose on Wed12/31/23 at 0845, Until Discontinued, Routine, On Unit - Preprocedure 0845 (Canceled Entry - Provider: Automatic Discharge Provider - Comment: Automatically canceled at discontinue of medication order)1956 (Given - Provider: Judith Pennington) 0855 (Given - Provider: Alida Frank, NICOLE) PRN Medication Order 12/30/2023 12/31/2023 01/01/2024 fentaNYL (Sublimaze) injection 25 mcg (CANCELED) 25 mcg, Intravenous, Every 5 min PRN, 2 doses, Starting on Wed12/31/23 at 1436, Until Wed12/31/23 at 1850, Routine, Recovery (Phase I only), pain score of 3-4 out of 10 1520 (Given - Provider: Violeta Atkins RN) sodium chloride 0.9 % flush 10 mL(Linked Group 1) 10 mL, Intravenous, As needed, Starting on Wed12/31/23 at 0819, Until 01/01/24 at 1319, Routine, On Unit - Preprocedure, line care Linked Groups Order Group 1: Insert peripheral IV (CANCELED) Once, On Wed12/31/23 at 0820, For 1 occurrence, On Unit - Preprocedure And Saline lock IV (CANCELED) Once, On Wed12/31/23 at 0820, For 1 occurrence, On Unit - Preprocedure And sodium chloride 0.9 % flush 10 mLJump to med 10 mL, Intravenous, Every 12 hours, First dose on Wed12/31/23 at 0845, Until Discontinued, Routine, On Unit - Preprocedure And sodium chloride 0.9 % flush 10 mLJump to med 10 mL, Intravenous, As needed, Starting on Wed12/31/23 at 0819, Until 01/01/24 at 1319, Routine, On Unit - Preprocedure, line care documented in this encounter Additional Health Concerns Assessment Noted Time A fall risk assessment has been complete d for the patient 12/30/2023 12:46 PM EST A Body Mass Index follow-up plan has been documented for the patient 01/01/2024 10:12 AM EST documented as of this encounter Care Teams Rough Rib Grader Relationship Specialty Start Date End Date Drew Howell MD [address] [place] [id number] PCP - General 12/23/23 Efrain Sarah MD [address] [place] [address] 12/02/23 Aris Lynch MD [address] [place] [phone] Surgeon Otolaryngology 12/02/23 documented as of this encounter
--- OUTSIDE RECORDS SUMMARY | 2024-10-04 19:05 | XMS_ITS | Encounter Summary ---
Author Organization [facility] Address [address] [place] [address] Care Team Providers Care Chemical Handler Name Role Phone Efrain Sarah MD Unavailable [phone] Aris Lynch MD Unavailable [phone] Drew Howell MD Primary Care Provider [phone] Reason for Visit * Reason Comments Post-op Encounter Details Date Type Department Care Team ([facility] st Contact Info) Description 12/30/2023 9:30 AM EST Office Visit [facility] [address] [place] [address] Zafar Zuniga, DO [address] [facility] [address] [place] [phone] 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); Severe protein-calorie malnutrition (CMS/HCC) Social History Tobacco Use Types Packs/Day [...] Sign Reading Time Taken Comments Blood Pressure 120/74 12/30/2023 8:21 AM EST Pulse 70 12/30/2023 8:21 AM EST Temperature 36.3 ??C (97.4 ??F) 12/30/2023 8:21 AM ES T Respiratory Rate 16 12/30/2023 8:21 AM EST Oxygen Saturation 100% 12/30/2023 8:21 AM EST Inhaled Oxygen Concentration - - Weight 74.5 kg (164 lb 3.9 oz) 12/30/2023 8:21 A M EST Height 185.4 cm (6' 0.99 ) 12/30/2023 8:21 AM ES T Body Mass Index 21.68 12/30/2023 8:21 AM EST documented in this encounter Miscellaneous Notes * Progress Notes - William Laboy MD - 12/30/2023 9:30 AM EST Images from the original note were not included. [facility] Department of Surgery Section of Thoracic Surgery Outpatient Clinic Note Diagnosis: supraglottic squamous cell carcinoma Procedure: 12/13/23 - EGD, PEG placement Interval History: Vamsi Mallory is a 78 y.o. male with supraglottic squamous cell cancer presenting to clinic today for post-operative check after undergoing EGD with PEG tube placement on 12/13/23. He has been doing well overall since PEG placement. Tolerating bolus feeds without issue. No difficulties with management/care of PEG tube. ROS: General: no fevers or chills, no heat or cold intolerance, no subjective weight loss HEENT: no changes in vision, no sore throat, no changes in hearing, no tinnitus, no nasal drainage CV: no chest pain, no palpitations, no lightheadedness, no PND, no orthopnea, no LE swelling, no claudication Pulm: no shortness of breath, no cough, no hemoptysis GI: no nausea, no vomiting, no abdominal pain, no constipation, no diarrhea, no melenal, no hematochezia, no dysphagia, no heartburn Skin: no rash Neuro: no numbness, no tingling, no headache, no difficulties with speech, no gait disturbance Heme: no easy bruising, no bleeding from the gums Endo: No polyuria or polydypsia Psych: no depression or anxiety Physical exam: Visit Vitals BP 120/74 (BP Location: Left arm, Patient Position: Sitting, BP Cuff Size: Adult) Pulse 70 Temp 36.3 ??C (97.4 ??F) (Oral) Ht 1.854 m (6' 0.99 ) Wt 74.5 kg (164 lb 3.9 oz) SpO2 100% BMI 21.68 kg/m?? General: alert and oriented, appropriate Lungs: CTA B, no wheezes or rhonchi Heart: RRR, no murmurs Abdomen: soft NT/ND, PEG tube in place without erythema or drainage. Spins freely. Not on tension. Lymph nodes: no palpable supraclavicular or cervical adenopathy Extremities: no peripheral edema Skin: no rash, no cyanosis and warm to touch Psychiatric: oriented to person/place/time and normal mood/affect Imaging: none Additional Testing: none Assessment and Plan: Vamsi Mallory is a 78 y.o. male who presents for post-op check after undergoing PEG placement 2 weeks ago. Doing well overall after placement. Tolerating bolus feeds and gaining some weight. No concerns regarding PEG tube incision. We will have him see the firer automatic stoker today to ensure there are no q uestions regarding tube feeds/PEG care. Images and pathology reviewed and discussed with the patient at today's visit and all questions answered. Patient will return to clinic as needed. The patient understands this plan and will call our office for any additional questions or concerns. William Laboy MD 12/30/23 12:24 PM Cosigned by Zafar Zuniga DO at 01/02/2024 8:54 AM EST Associated attestation - Zafar Zuniga DO - 01/02/2024 8:54 AM EST I saw and evaluated the patient with the resident/fellow. I discussed the case with the resident/fellow and agree with the findings and plan as documented. 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 Malignant neoplasm of supraglottis Severe protein-calorie malnutrition (CMS/HCC) Other severe protein-calorie malnutrition documented in this encounter Additional Health Concerns Assessment Noted Time A fall risk assessment has been complete d for the patient 12/30/2023 12:46 PM EST A Body Mass Index follow-up plan has been documented for the patient 12/31/2023 11:21 AM EST documented as of this encounter Care Teams Chemical Handler Relationship Specialty Start Date End Date Drew Howell MD [address] [place] [address] PCP - General 12/23/23 Efrain Sarah MD [address] [place] [address] 12/02/23 Aris Lynch MD [address] [place] [address] [phone] Surgeon Otolaryngology 12/02/23 documented as of this encounter
--- OUTSIDE RECORDS SUMMARY | 2024-10-04 19:05 | XMS_ITS | Encounter Summary ---
Author Organization [facility] Address [address] [place] [address] Care Team Providers Care Chief Technology Officer Name Role Phone Efrain Sarah MD Unavailable [phone] Aris Lynch MD Unavailable [phone] Pcp, No Primary Care Provider Unavailabl e Reason for Visit * Reason Onset Date Comments ELVIRA Marie 12/20/2023 Encounter Details Date Type Department Care Team (Late st Contact Info) Description 12/20/2023 Telephone PSYCH ONCOLOGY [address] [place] [address] Aris Lynch MD [address] [facility] [address] [place] [phone] ELVIRA Marie Social History Tobacco Use Types Packs/Day Years Used Date Smoking Tobacco: Every Day Cigarettes 1 70 Smokeless Tobacco: Never Comments:Trying to quit Alcohol Use Standard Drinks/Week Comments Never 0 (1 standard drink = 0.6 oz pur e alcohol) Sex and Gender Information Value Date Recorded Sex Assigned at Not on file Legal Sex Male 8:37 PM EDT Gender Identity Not on file Sexual Orientation Not on file documented as of this encounter Miscellaneous Notes * Telephone Encounter - Rosanna Wilkinson - 12/20/2023 11:55 AM EST Called left non urgent message for patient regarding Tobacco Cessation resources. Encouraged patient to return call if interested in speaking with Tobacco legal billing specialist. documented in this encounter Plan of Treatment Not on file documented as of this encounter Visit Diagnoses Not on filedocumented in this encounter Additional Health Concerns Assessment Noted Time A fall risk assessment has been complete d for the patient 12/08/2023 7:52 AM EST documented as of this encounter Care Teams Chief Technology Officer Relationship Specialty Start Date End Date Pcp, No [address] [place] [address] PCP - General Family Medicine 12/08/23 12/22/23 Efrain Sarah MD [address] [place] [address] 12/02/23 Aris Lynch MD [address] [facility] [address] [phone] Surgeon Otolaryngology 12/02/23 documented as of this encounter
--- OUTSIDE RECORDS SUMMARY | 2024-10-04 19:05 | XMS_ITS | Encounter Summary ---
Author Organization [facility] Address [address] [place] [address] Care Team Providers Care Pillowcase Cleaner Name Role Phone Efrain Sarah MD Unavailable [phone] Aris Lynch MD Unavailable [phone] Drew Howell MD Primary Care Provider [phone] Encounter Details Date Type Department Care Team (Latest Contact Info) Description 12/30/2023 Travel Social History Tobacco Use Types Packs/Day [...] documented as of this encounter Care Teams Pillowcase Cleaner Relationship Specialty Start Date End Date Drew Howell MD [address] [place] [address] PCP - General 12/23/23 Efrain Sarah MD [address] [place] [address] 12/02/23 Aris Lynch MD [address] [place] [address] [phone] Surgeon Otolaryngology 12/02/23 documented as of this encounter
--- OUTSIDE RECORDS SUMMARY | 2024-10-04 19:05 | XMS_ITS | Encounter Summary ---
Author Organization [facility] Address [address] [place] [address] Care Team Providers Care Trade Economist Name Role Phone Efrain Sarah MD Unavailable [phone] Aris Lynch MD Unavailable [phone] Pcp, No Primary Care Provider Unavailabl e Reason for Visit * Auth/Cert (Routine) Specialty Diagnoses / Procedures Referred By Contac t Referred To Contact Diagnoses Dysphagia dysphagia Procedures [facility] PERCUTANEOUS PLACEMENT GASTROSTOMY TUBE INSERTION, PEG TUBE Zafar Zuniga, DO [address] [address] Phone: tel: fax: [facility] [address] [place] [address] Phone: tel: Referral ID Status Reason Start Date Expiration Date Visits Re quested Visits Authorized [id number] 1 1 Encounter Details Date Type Department Care Team (Late st Contact Info) Description 12/13/2023 12:40 PM EST - 12/13/2023 1:20 PM EST Surgery [facility] [address] [place] [address] Zafar Zuniga, DO [address] [address] INSERTION, PEG TUBE [88062 (CPT??)] Surgery Details Date/Time Status Location OR Service Patient Class Case Class Case Type Trauma Case? 12/13/2023 12:40 PM Posted [facility] 15 Cardiothoracic Surgery [facility] Outpatient Surgery E-Elect tony Panel 1 Procedure [facility] Anes Op Region Wound Class Comments INSERTION, PEG TUBE N/A General Surgeon Surgeon Role Service Panel Zafar Zuniga, DO Primary Cardiothoracic Surge ry 1 William Laboy MD Resident - Assisting General Surg joseluis 1 documented in this encounter Social History Tobacco [...] Sign Reading Time Taken Comments Blood Pressure 127/67 12/13/2023 12:52 PM EST Pulse 69 12/13/2023 12:52 PM EST Temperature 36.6 ??C (97.8 ??F) 12/13/2023 12:[address] Respiratory Rate 16 12/13/2023 12:52 PM EST Oxygen Saturation 96% 12/13/2023 12:52 PM EST Inhaled Oxygen Concentration - - Weight 74 kg (163 lb 2.3 oz) 12/13/2023 12:52 PM EST Height 185.4 cm (6' 1 ) 12/13/2023 12:52 PM EST Body Mass Index 21.52 12/13/2023 12:52 PM EST documented in this encounter Discharge Instructions * Discharge Instructions* Jayashree Vogel MD - 12/13/2023 4:44 PM EST Medications: - You should take Tylenol and/or ibuprofen every 6 hours as needed for mild - moderate pain. - You have been prescribed pain medications to be taken as needed for severe pain. - You should take a stool softener prescribed as long as you are taking narcotics. - You may resume your previous medications unless otherwise instructed. Nutrition: - Resume soft diet as tolerated Activity: - Walking and climbing stairs is ok and encouraged. You should refrain from any strenuous activity/exercise until your follow up appointment. - No lifting anything >10lbs for the next 2 weeks - You may not drive for 48 hours after surgery, or while taking narcotics PEG care - Flush after medications crushed and dissolved in liquids with 30 mL of water - May use abdominal binder or clips to clip PEG up - Keep surrounding area around tube clean Potential Issues: - It is normal to have some pain and soreness, especially around the incisions - A small amount of clear drainage from the incision may be expected, call the office if the drainage becomes bloody, purulent (pus), or foul-smelling - Call the office if you start to have increased redness, drainage, swelling, or increased pain around your incision - Call the office if you have a fever greater than 101 F - Call the office if you have severe abdominal discomfort, nausea and vomiting, or feeling unwell Follow Up: - You will be contacted by the clinic for a follow up appointment with Dr. Zuniga in 2 weeks - Contact the Thoracic Surgery team via: - For non-emergent questions/concerns: Clinic discharge # - For urgent questions/concerns: MDs hotline: , option 4 - ask for the thoracic surgeon production operator. * Attachments The following attachments cannot be sent through Care Everywhere. * Feeding Tube Care, Gastrostomy: Flushing (Panamanian) * Feeding Tube, Discharge Instructions: Flushing Your (Panamanian) * PEG Tube Placement, Understanding (Panamanian) * Tube Feeding, Bolus (Panamanian) documented in this encounter Medications at Time [...] skin 1 (one) time per week. Sundays empagliflozin (Jardiance) 25 MG Take 1 tablet [...] Tube route 5 (five) times a day. 94166 mL 2 12/09/2023 4 atorvastatin (Lipitor) 80 MG tablet Take 0.5 tablets (40 mg) by mouth 1 (one) time each day. 11/18/2023 4 Eliquis 5 MG tablet Take 1 tablet (5 mg) by mouth 2 (two) times a day. 11/08/2023 4 metoprolol succinate XL (Toprol-XL) 100 MG 24 hr tablet Take 1 tablet (100 mg) by mouth 1 (one) time each day. 11/09/2023 4 potassium chloride CR (Klor-Con) 8 MEQ ER tablet Take 1 tablet (8 mEq) by mouth 1 (one) time each day. 11/08/2023 4 documented as of this encounter Miscellaneous Notes * Anesthesia PACU Signout - Bigg Carson MD - 12/13/2023 4:55 PM EST Patient: Vamsi Mallory Anesthesia Type: No value filed. Vitals Value Taken Time BP 119/57 12/13/23 1645 Temp See flowsheet 12/13/23 1655 Pulse 70 12/13/23 1654 Resp 15 12/13/23 1654 SpO2 100 % 12/13/23 165 Vitals shown include unvalidated device data. Anesthesia PACU Signout Patient location during evaluation: PACU Patient participation: complete - patient participated Level of consciousness: baseline and awake Pain management: adequate (pain score 0-3) Airway patency: natural airway Hydration status: acceptable PONV: none Cardiovascular status: acceptable and hemodynamically stable Respiratory status: acceptable, spontaneous ventilation, unassisted, nonlabored ventilation and room air Discharge Disposition: home Cosigned by Evangelist Jain MD at 12/13/2023 5:34 PM EST Associated attestation - Evangelist Jain MD - 12/13/2023 5:34 PM EST I agree with resident evaluation and plan. Patient ready for discharge from PACU * Op Note - Zafar Zuniga, - 12/13/2023 3:27 PM EST Operative Note Date: 12/13/23 Location: [facility] Name: Vamsi Mallory, : 1945, Diagnoses: Pre-op Diagnosis Dysphagia. Squamous cell carcinoma of the larynx Post-op Diagnosis Dysphagia, Squamous cell carcinoma of the larynx Procedure(s): EGD with PEG tube insertion 20 Serbian Attending Surgeon(s): * Zafar Zuniga - Primary Cooky Packer(s): * William Laboy MD - Resident - Assisting Anesthesia: General ASA: III Blood Administration: Blood Product Administration History None Estimated Blood Loss: Minimal Indications: Vamsi Mallory is an 78 y.o. male who is having surgery for Dysphagia. He was found to have a laryngeal squamous cell carcinoma. The risks and benefits of enteral feeding access were discussed with the patient and the appropriate consents were signed. Procedure: The patient was taken to the operating room and placed on the table in the supine position. After induction of general endotracheal anesthesia, the endoscope was passed orally into the esophagus. The GE junction was encountered at approximately 40 cm from the incisors. The remainder of the stomach was within normal limits. The pylorus was patent and the 1st portion of the duodenum was normal. The abdominal wall was inspected and the light from the endoscope trans-illuminated to the skin. A single finger was used to press on the abdominal wall at different locations until a clear impression of the finger could be seen transmitting to the endoscopic view. The abdomen was then prepped and draped in the usual fashion. The introducer needle was passed from the skin into the stomach in a single attempt. The needle was withdrawn leaving the catheter in place and a guidewire passed through the catheter. Using a snare through the endoscope, the wire was grasped and pulled up and outthrough the mouth. The PEG tube was attached to the wire and pulled back down through the mouth into the esophagus and stomach. A skin incision the size of the tube was created at the wire exit site on the abdominal wall using an 11 blade scalpel. The tube was then pulled out through the incision until it was snug against thestomach. The depth of the tube was confirmed by passing the endoscope back into the stomach and visualizing that the tube was snug against the gastric mucosa without causing ischemia and rotated freely. The tube was then secured at skin level using the device provided in the kit. The tube was connected to a husain drainage bag to decompress the stomach. The endoscope was then withdrawn. The patient tolerated the procedure well and was taken to PACU in stable condition. I was present throughout the entire procedure. Complications: None; patient tolerated the procedure well. Submitted by: Zafar Zuniga DO - 12/13/2023 * H&P - Jayashree Vogel MD - 12/13/2023 1:24 [...] Ringer's infusion 20 mL/hr Intravenous Continuous Zafar Zuniga, DO 20 mL/hr at 12/13/23 1259 20 mL/hr at 12/13/23 1259 sodium chloride 0.9 % flush 1 mL 1 mL Intravenous q8h PRN Zafar Zuniga DO Review of Systems 14 point review [...] Zuniga DO at 12/13/2023 2:25 PM EST Associated attestation - Zafar Zuniga DO - 12/13/2023 2:25 PM EST I saw and evaluated the patient with the resident/fellow. I discussed the case with the resident/fellow and agree with the findings and plan as documented. documented in this encounter Plan of Treatment Not on file documented as of this encounter Procedures Procedure Name Priority Date/Time Associated Diagnosis Comments POCT GLUCOSE METER UNSOLICITED RESULTS Routine 12/13/2023 4:03 PM EST [facility] PERCUTANEOUS PLACEMENT GASTROSTOMY TUBE 12/13/2023 2:57 PM EST Dysphagia POCT GLUCOSE METER UNSOLICITED RESULTS Routine 12/13/2023 12:45 PM EST documented in this encounter Results * POCT glucose meter (12/13/2023 4:03 PM EST) POCT Glucose 95 74 - 99 mg/dL 12/13/2023 4:04 PM EST [facility] Comment:Accuracy of a glucos e result obtained from a capillary whole blood specimen relies upon adequate, non-compromised capillary blood flow. If the capillary glucose result is not consistent with the patient's clinical signs and symptoms, glucose testing should be repeated with either an arterial or venous sample on the glucometer or sent to the main labortory for testing. Comment 12/13/2023 4:04 PM EST [facility] Destaticizer Feeder ID Britney Ibanez 12/13/2023 4:04 PM EST [facility] Device ID [id number] 12/13/2023 4:04 PM EST [facility] Specimen Type POC Capillary 12/13/2023 4:04 PM EST [facility] Blood Capillary blood specimen / Unknown 12/13/2023 4:03 PM EST 12/13/2023 4:04 PM EST us Zafar Zuniga DO LAB POINT OF CARE TE ST DOCKED DEVICE UNSOLICITED RESULTS Final Result [facility] [address] [place] [address] * POCT glucose meter (12/13/2023 12:45 PM EST) POCT Glucose 90 74 - 99 mg/dL 12/13/2023 1:02 PM EST [facility] Comment:Accuracy of a glucos e result obtained from a capillary whole blood specimen relies upon adequate, non-compromised capillary blood flow. If the capillary glucose result is not consistent with the patient's clinical signs and symptoms, glucose testing should be repeated with either an arterial or venous sample on the glucometer or sent to the main labortory for testing. Comment 12/13/2023 1:02 PM EST [facility] Destaticizer Feeder ID Ana Liao 1:02 PM EST [facility] Device ID [id number] 12/13/2023 1:02 PM EST [facility] Specimen Type POC Venous 12/13/2023 1:02 PM EST [facility] Blood Venous blood specimen / Unknown 12/13/2023 12:45 PM EST 12/13/2023 1:02 PM EST Zafar Zuinga DO LAB POINT OF CARE TE ST DOCKED DEVICE UNSOLICITED RESULTS Final Result Performing Organization Address City/State/[facility] Co de Phone Number [facility] [address] [place] [address] documented in this encounter Visit Diagnoses Diagnosis Dysphagia documented in this encounter Administered Medications Inactive Administered Medications - up to 3 most recent administrations Medication Order MAR Action Action Date Dose Rate Site HYDROmorphone (Dilaudid) injection 0.25 mg 0.25 mg, Intravenous, Every 10 min PRN, 2 doses, Starting on Wed12/13/23 at 1538, Until Wed12/13/23 at 1947, Routine, Recovery (Phase I only), pain score of 9-10 out of 10 lactated Ringer's infusion 20 mL/hr, Intravenous, Continuous, Starting on Wed12/13/23 at 1315, Until Wed12/13/23 at 1947, Routine New Bag 12/13/2023 3:11 PM EST New Bag 12/13/2023 12:59 PM EST 20 mL/hr 20 mL/hr lidocaine (Xylocaine) 1 % injection As needed, Starting on Wed12/13/23 at 1559, Until Wed12/13/23 at 1601, Routine, Intraprocedure Given 12/13/2023 3:50 PM EST 2 mg naloxone (Narcan) injection 0.4 mg 0.4 mg, Intravenous, As needed, Starting on Wed12/13/23 at 1538, Until Wed12/13/23 at 1947, Routine, Recovery (Phase I only), respiratory depression ondansetron (Zofran) injection 4 mg 4 mg, Intravenous, Once as needed, 1 dose, Starting on Wed12/13/23 at 1538, Until Wed12/13/23 at 1947, Routine, Recovery (Phase I only), nausea, vomiting documented in this encounter Active and Recently Administered Medications Times are shown in EST. Scheduled Medication Order 12/11/2023 12/12/2023 12/13/2023 lactated Ringer's infusion 20 mL/hr, Intravenous, Once, 1 dose, On Wed12/13/23 at 1600, Routine 1600 (Canceled Entry - Provider: Automatic Discharge Provider - Comment: Automatically canceled at discontinue of medication order) Continuous Medication Order 12/11/2023 12/12/2023 12/13/2023 lactated Ringer's infusion 20 mL/hr, Intravenous, Continuous, Starting on Wed12/13/23 at 1315, Until Wed12/13/23 at 1947, Routine 1259 (New Bag - Prov ider: Ana Liao RN)1510 (Paused - Provider: Kenroy Pascual MD - Comment: Switch to gravity)1511 (New Bag - Provider: Kenroy Pascual MD)1554 (Stopped - Provider: Kenroy Pascual MD) PRN Medication Order 12/11/2023 12/12/2023 12/13/2023 HYDROmorphone (Dilaudid) injection 0.25 mg 0.25 mg, Intravenous, Every 10 min PRN, 2 doses, Starting on Wed12/13/23 at 1538, Until Wed12/13/23 at 1947, Routine, Recovery (Phase I only), pain score of 9-10 out of 10 lidocaine (Xylocaine) 1 % injection (CANCELED) As needed, Starting on Wed12/13/23 at 1559, Until Wed12/13/23 at 1601, Routine, Intraprocedure 1550 (Given - Provid er: Zafar Zuniga, - Comment: from peg kit) naloxone (Narcan) injection 0.4 mg 0.4 mg, Intravenous, As needed, Starting on Wed12/13/23 at 1538, Until Wed12/13/23 at 1947, Routine, Recovery (Phase I only), respiratory depression ondansetron (Zofran) injection 4 mg 4 mg, Intravenous, Once as needed, 1 dose, Starting on Wed12/13/23 at 1538, Until Wed12/13/23 at 1947, Routine, Recovery (Phase I only), nausea, vomiting documented in this encounter Additional Health Concerns Assessment Noted Time A fall risk assessment has been complete d for the patient 12/08/2023 7:52 AM EST documented as of this encounter Care Teams Trade Economist Relationship Specialty Start Date End Date Pcp, No [address] [place] [address] PCP - General Family Medicine 12/08/23 12/22/23 Efrain Sarah MD [address] [place] [address] 12/02/23 Aris Lynch MD 800 [facility] Cancer [address] [address] Surgeon Otolaryngology 12/02/23 documented as of this encounter
--- OUTSIDE RECORDS SUMMARY | 2024-10-04 19:05 | XMS_ITS | Encounter Summary ---
Author Organization [facility] Address [address] [place] [address] Care Team Providers Care Alley Worker Name Role Phone Efrain Sarah MD Unavailable [phone] Aris Lynch MD Unavailable [phone] Drew Howell MD Primary Care Provider [phone] Encounter Details Date Type Department Care Team (Latest Contact Info) Description 12/31/2023 Travel Social History Tobacco Use Types Packs/Day [...] documented as of this encounter Care Teams Alley Worker Relationship Specialty Start Date End Date Drew Howell MD [address] [place] [address] PCP - General 12/23/23 Efrain Sarah MD [address] [place] [address] 12/02/23 Aris Lynch MD [address] [place] [address] [address] Surgeon Otolaryngology 12/02/23 documented as of this encounter
--- OUTSIDE RECORDS SUMMARY | 2024-10-04 19:05 | XMS_ITS | Encounter Summary ---
Author Organization [facility] Address [address] [place] [address] Care Team Providers Care Health Aid Name Role Phone Efrain Sarah MD Unavailable [phone] Aris Lynch MD Unavailable [phone] Pcp, No Primary Care Provider Unavailabl e Reason for Visit * Auth/Cert (Routine) Specialty Diagnoses / Procedures Referred By Contac t Referred To Contact Diagnoses Dysphagia dysphagia Procedures CT EDG PERCUTANEOUS PLACEMENT GASTROSTOMY TUBE INSERTION, PEG TUBE Zafar Zuniga, DO [address] [place] [phone] Phone: tel: fax: [facility] [address] [place] [phone] Phone: tel: Referral ID Status Reason Start Date Expiration Date Visits Re quested Visits Authorized [id number] 1 1 Encounter Details Date Type Department Care Team (Late st Contact Info) Description 12/13/2023 3:11 PM EST Anesthesia Event [facility] [address] [place] [phone] Usman Marrero MD [address] [place] [phone] Kenroy Pascual MD [address] [place] [address] Anesthesia Record Procedure Summary Procedure Name Responsible Anesthesiologist Anesthesia Start Time Anesthesia Stop Time INSERTION, PEG TUBE Usman Marrero MD 12/13/23 151 1 12/13/23 1601 Events Date Time Event Comment 12/13/2023 1506 1511 An Start 1512 In Room 1513 An Start Data 1518 An Induction The patient was reevaluated immediately before moderate or deep sedation use and before anesthesia induction. 1521 An Intubation 1525 Anesthesia Ready 1527 Proc Start 1548 Proc Fin 1550 An Extubation 1550 Out of Room 1554 an stop data 1601 Handoff to Receiving I compl eted my handoff to the receiving clinician during which we: 1. Identified the patient 2. Identified the responsible provider 3. Reviewed the pertinent medical history 4. Discussed the surgical course 5. Reviewed intra-op anesthesia management and issues during anesthesia 6. Set expectations for post-procedure period 7. Allowed opportunity for questions and acknowledgement of understanding. 1601 An Stop Meds Name Total fentaNYL (Sublimaze) injection 50 mcg/mL 50 mcg lidocaine PF (Xylocaine-MPF) 2% 60 mg propofol (Diprivan) injection 10 mg/mL 1 20 mg rocuronium (ZeMuron) injection 10 mg/mL 50 mg dexamethasone (Decadron) injection 4 mg/ mL 4 mg phenylephrine (Wilbur-Synephrine) prefilled syringe 1 mg/10 mL 400 mcg ondansetron (Zofran) injection 2 mg/mL 4 mg sugammadex (Bridion) injection 100 mg/mL 400 mg lactated Ringer's infusion 250 mL * Agents Name O2 * Blood No blood administrations on file. Lines, Drains, and Airways Type Details Placement Removal Wound 12/13/23; 1521; Yes; Incision; Abdomen; Left, Upper 12/13/23 1521 by Edna Frank RN Peripheral IV Placement Date: 12/02 12/25; Placement Time: 1250; Catheter Size: 18 G; Orientation: Anterior, Distal, Right, Upper; Location: Arm; Site Prep: Chlorhexidine ; Local Anesth: None; Technique: Anatomical landmarks; Inserted by: BECCA LIAO RN; Insertion Attempts: 1; Patient Tolerance: Tolerated well; Removal Date: 12/13/23; Removal Time: 172; Removal Reason: Discharge 12/13/23 1250 by Becca Liao RN 12/13/23 1727 by Britney Ibanez RN ETT Placement Date: 12/02 12/25; Placement Time: 1521 (created via procedure documentation); Mask Ventilation: 2; Technique: Video laryngoscopy; Type: ETT - single; Single Lumen Tube Size: 6 mm; Cuffed: Yes; Laryngoscope: (LoPro S3); Location: Oral; Grade View: Grade IIa; Insertion Attempts: 1; Placement Verification: Auscultation, Capnometry; Airway Comments: VL with LoPro S3. Mass noted in pharynx in close proximity to glottic opening. Glottis visualized and 6.0 ETT advanced carefully past mass and through glottic opening without trauma. Atraumatic. No change to dentition. ; Placed by: Resident ; Removal Date: 12/13/23; Removal Time: 1550 12/13/23 1521 by Kenroy Pascual MD 12/13/23 1550 by Kenroy Pascual MD documented in this encounter Social History Tobacco [...] of this encounter Miscellaneous Notes * Anesthesia Postprocedure Evaluation - Kenroy Pascual MD - 12/13/2023 4:04 PM EST Patient: Vamsi Mallory Anesthesia Type: general Vitals Value Taken Time BP 123/59 12/13/23 1600 Temp 36.6 12/13/23 1604 Pulse 70 12/13/23 1603 Resp 15 12/13/23 1603 SpO2 100 % 12/13/23 1603 Vitals shown include unvalidated device data. Anesthesia Post Evaluation Patient location during evaluation: PACU Patient participation: complete - patient participated Level of consciousness: awake and sedated Pain management: adequate (pain score 0-3) Airway patency: natural airway Cardiovascular status: acceptable Respiratory status: acceptable, nonlabored ventilation, face mask, spontaneous ventilation and unassisted (6L O2) Hydration status: acceptable No notable events documented. Cosigned by Usman Marrero MD at 12/13/2023 4:10 PM EST Associated attestation - Usman Marrero MD - 12/13/2023 4:10 PM EST I agree with the findings and care plan documented in the postprocedure evaluation note. * Anesthesia Procedure Notes - Kenroy Pascual MD - 12/13/2023 3:27 PM EST Associated Order(s): Airway Airway Date/Time: 12/13/2023 3:21 PM Urgency: elective Airway not difficult General Information and Staff Patient location during procedure: OR Anesthesiologist: Usman Marrero MD Resident: Kenroy Pascual MD Performed: Resident Indications and Patient Condition Indications for airway management: anesthesia Spontaneous Ventilation: absent Preoxygenated: yes Patient position: sniffing Mask difficulty assessment: 2 - vent by mask + OA or adjuvant +/- NMBA Final Airway Details Final airway type: endotracheal airway Successful airway: ETT Cuffed: yes Successful intubation technique: video laryngoscopy Facilitating devices/methods: intubating stylet Endotracheal tube insertion site: oral Blade type: LoPro S3. ETT size (mm): 6.0 Cormack-Lehane Classification: grade IIa - partial view of glottis Placement verified by: chest auscultation and capnometry Measured from: gums ETT to gums (cm): 22 Number of attempts at approach: 1 Additional Comments VL with LoPro S3. Mass noted in pharynx in close proximity to glottic opening. Glottis visualized and 6.0 ETT advanced carefully past mass and through glottic opening without trauma. Atraumatic. No change to dentition. Cosigned by Usman Marrero MD at 12/13/2023 3:42 PM EST Associated attestation - Usman Marrero MD - 12/13/2023 3:42 PM EST I was present during all critical and [place] portions of the procedure(s) and immediately available [facility] the entire duration. See resident note for details. * Anesthesia Preprocedure Evaluation - Usman Marrero MD - 12/13/2023 3:05 PM EST Anesthesiologist: Usman Marrero MD Energy Risk Management Analyst: Kenroy Pascual MD HPI Vamsi Mallory is a 78 y.o. male who presents with supraglottic squamous cell carcinoma, now scheduled for INSERTION, PEG TUBE (N/A). ALLERGIES Allergies Allergen Reactions Penicillins Hives and Rash NPO STATUS AIRWAY HISTORY Past Medical History: Diagnosis Date Allergies [...] of pneumonia Shortness of breath Sinus problem MEDICATIONS Outpatient Medications Prior to Admission Medication Sig Dispense Refill Last Dose aspirin 81 MG EC tablet Take 1 tablet (81 mg) by mouth 1 (one) time each day. 12/13/2023 at 000 tamsulosin (Flomax) 0.4 MG 24 hr capsule Take 1 capsule (0.4 mg) by mouth 1 (one) time each day. 12/11/2023 at 2100 atorvastatin (Lipitor) 80 MG tablet Take 0.5 tablets (40 mg) by mouth 1 (one) time each day. (Patient not taking: Reported on 12/13/2023) Not Taking Eliquis 5 MG tablet Take 1 tablet (5 mg) by mouth twice a day. (Patient not taking: Reported on 12/13/2023) Not Taking metoprolol succinate XL (Toprol-XL) 100 MG 24 hr tablet Take 1 tablet (100 mg) by mouth 1 (one) time each day. (Patient not taking: Reported on 12/13/2023) Not Taking Nutritional Supplements (isosource 1.5 Perry/mL) 250 mL by Per G Tube route 5 (five) times a day. [address] mL 2 potassium chloride CR (Klor-Con) 8 MEQ ER tablet Take 1 tablet (8 mEq) by mouth 1 (one) time each day. More than a month spironolactone (Aldactone) 25 MG tablet Take 1 tablet (25 mg) by mouth 1 (one) time each day. More than a month Current Outpatient Medications Medication Instructions aspirin 81 mg, Oral, ZZ Daily RT atorvastatin (LIPITOR) 40 mg, ZZ Daily RT Eliquis 5 mg, 2 times daily metoprolol succinate XL (TOPROL-XL) 100 mg, ZZ Daily RT Nutritional Supplements (isosource 1.5 Perry/mL) 250 mL, Per G Tube, 5 times daily potassium chloride CR (Klor-Con) 8 MEQ ER tablet 8 mEq, Oral, ZZ Daily RT spironolactone (ALDACTONE) 25 mg, Oral, ZZ Daily RT tamsulosin (FLOMAX) 0.4 mg, Oral, Daily Scheduled PRNs PRN medications: sodium chloride SURGICAL HX: Past Surgical History: Procedure Laterality Date CARDIAC PACEMAKER PLACEMENT CORONARY ARTERY BYPASS GRAFT N/A CABG (CABG) from [facility] KNEE SURGERY N/A Knee Surgery from [facility] SHOULDER SURGERY N/A Shoulder Surgery from [facility] FUNCTIONAL CAPACITY SOCIAL HX: Social History Tobacco Use Smoking status: Every Day Packs/day: 1.00 Years: 70.00 Additional pack years: 0.00 Total pack years: 70.00 Types: Cigarettes Smokeless tobacco: Never Tobacco comments: Trying to quit Vaping Use Vaping Use: Never used Substance Use Topics Alcohol use: Never Drug use: Never OBJECTIVE DATA LABS Type and Screen No results found for: ABO COVID No results found for: SARSCOV2 Lab Results Component Value Date WBC 11.06 (H) 12/08/2023 HGB 13.7 12/08/2023 HCT 41.3 12/08/2023 MCV 90 12/08/2023 PLT 222 12/08/2023 Lab Results Component Value Date GLUCOSE 93 12/08/2023 CALCIUM 9.6 12/08/2023 NA 139 12/08/2023 K 4.4 12/08/2023 CO2 28 12/08/2023 CL 100 12/08/2023 BUN 16 12/08/2023 CREATININE 0.96 12/08/2023 Results from last 7 days Lab Units 12/08/23 1008 INR 1.0 Diabetic Labs No results found for: HGBA1C Lab Results Component Value Date PGLU 90 12/13/2023 ABG No results found for: PHART , IDL8TBM , PO2ART , SO2ART , BEART , ZGA0HTW , HCTART , SODIUMART , POTASSIUMART , POCTCL , POCGLU , IONCALART , LACTATE Lab Results Component Value Date NA 139 12/08/2023 EKG No results found for this or any previous visit (from the past 4464 hour(s)). ECHO No echocardiogram results found for the past 12 months PFTs No results found for: KCD4GLA , XLU5KNGI , HEI2IJD , FVCPRED Patient: Vamsi Mallory Procedure Information Date/Time: 12/13/23 1240 Procedure: INSERTION, PEG TUBE Location: [facility] 15 / [facility] Surgeons: Zafar Zuniga, DO Relevant Problems No relevant active problems Anesthesia Evaluation Clinical information reviewed: Med Hx Tobacco Allergies Problems Surg Hx Fam Hx Soc Hx NPO Status Date of Last Liquid: 12/13/23 Time of Last Liquid: 0700 (SIP OF WATER WITH MEDS) Date of Last Solid: 12/12/23 Time of Last Solid: 1800 Last Intake Type: Clear fluids Time of Last Void: 1200 Physical Exam Airway Mallampati: III Mouth opening: normal TM distance: >3 FB Cardiovascular - normal exam Dental Pulmonary - normal exam Neurological - normal exam Oriented: normal to time, normal to place and normal to person Skin Musculoskeletal Extremities Anesthesia Plan ASA 3 Plan was reviewed with: resident Anesthesia technique(s) discussed with the patient/family: general Anesthesia plan agreed upon was: general Anesthetic plan and risks discussed with patient. Additional Equipment Requests documented in this encounter Plan of Treatment Not on file documented as of this encounter Procedures Procedure Name Priority Date/Time Associated Diagnosis Comments PB ANESTHESIA PLACEHOLDER Routine 12/13/2023 3:[address] AN ELECTIVE ENDOTRACHEAL AIRWAY Routine 12/13/2023 3:21 PM EST documented in this encounter Results * CT AN ELECTIVE ENDOTRACHEAL AIRWAY, PB ANESTHESIA PLACEHOLDER (12/13/2023 3:21 PM EST) Narrative Usman Marrero MD - 12/13/2023 3:21 PM EST Kenroy Pascual MD ? 12/13/2023 ??3:28 PM Airway Date/Time: 12/13/2023 3:21 PM Urgency: elective Airway not difficult General Information and Staff Patient location during procedure: OR Anesthesiologist: Usman Marrero MD Resident: Kenroy Pascual MD Performed: Resident Indications and Patient Condition Indications for airway management: anesthesia Spontaneous Ventilation: absent Preoxygenated: yes Patient position: sniffing Mask difficulty assessment: 2 - vent by mask + OA or adjuvant +/- NMBA Final Airway Details Final airway type: endotracheal airway Successful airway: ETT Cuffed: yes Successful intubation technique: video laryngoscopy Facilitating devices/methods: intubating stylet Endotracheal tube insertion site: oral Blade type: LoPro S3. ETT size (mm): 6.0 Cormack-Lehane Classification: grade IIa - partial view of glottis Placement verified by: chest auscultation and capnometry Measured from: gums ETT to gums (cm): 22 Number of attempts at approach: 1 Additional Comments VL with LoPro S3. Mass noted in pharynx in close proximity to glottic opening. Glottis visualized and 6.0 ETT advanced carefully past mass and through glottic opening without trauma. Atraumatic. No change to dentition. us Usman Marrero MD ANESTHESIA ORDERABLES Final Result documented in this encounter Visit Diagnoses Not on filedocumented in this encounter Administered Medications Inactive Administered Medications - up to 3 most recent administrations Medication Order MAR Action Action Date Dose Rate Site dexamethasone (Decadron) injection Intravenous, As needed, Starting on Wed12/13/23 at 1523, Until Wed12/13/23 at 1604, Routine, Anesthesia Intraprocedure Given 12/13/2023 3:23 PM EST 4 mg fentaNYL (Sublimaze) injection Intravenous, As needed, Starting on Wed12/13/23 at 1518, Until Wed12/13/23 at 1604, Routine, Anesthesia Intraprocedure Given 12/13/2023 3:18 PM EST 50 mcg lactated Ringer's infusion 20 mL/hr, Intravenous, Continuous, Starting on Wed12/13/23 at 1315, Until Wed12/13/23 at 1947, Routine New Bag 12/13/2023 3:11 PM EST New Bag 12/13/2023 12:59 PM EST 20 mL/hr 20 mL/hr lidocaine PF (Xylocaine) 2 % injection Intravenous, As needed, Starting on Wed12/13/23 at 1518, Until Wed12/13/23 at 1604, Routine, Anesthesia Intraprocedure Given 12/13/2023 3:18 PM EST 60 mg ondansetron (Zofran) injection Intravenous, As needed, Starting on Wed12/13/23 at 1540, Until Wed12/13/23 at 1604, Routine, Anesthesia Intraprocedure Given 12/13/2023 3:40 PM EST 4 mg phenylephrine in NS (Wilbur-Synephrine) 100 mcg/mL prefilled syringe Intravenous, As needed, Starting on Wed12/13/23 at 1525, Until Wed12/13/23 at 1604, Routine, Anesthesia Intraprocedure Given 12/13/2023 3:30 PM EST 100 mcg Given 12/13/2023 3:25 PM EST 150 mcg Given 12/13/2023 3:18 PM EST 150 mcg propofol (Diprivan) injection Intravenous, As needed, Starting on Wed12/13/23 at 1518, Until Wed12/13/23 at 1604, Routine, Anesthesia Intraprocedure Given 12/13/2023 3:18 PM EST 120 mg rocuronium (ZeMuron) injection Intravenous, As needed, Starting on Wed12/13/23 at 1518, Until Wed12/13/23 at 1604, Routine, Anesthesia Intraprocedure Given 12/13/2023 3:18 PM EST 50 mg sugammadex (Bridion) 200 MG/2ML injection Intravenous, As needed, Starting on Wed12/13/23 at 1545, Until Wed12/13/23 at 1604, Routine, Anesthesia Intraprocedure Given 12/13/2023 3:49 PM EST 200 mg Given 12/13/2023 3:45 PM EST 200 mg documented in this encounter Additional Health Concerns Assessment Noted Time A fall risk assessment has been complete d for the patient 12/08/2023 7:52 AM EST documented as of this encounter Care Teams Health Aid Relationship Specialty Start Date End Date Pcp, No [address] [place] [address] PCP - General Family Medicine 12/08/23 12/22/23 Efrain Sarah MD [address] [place] [address] 12/02/23 Aris Lynch MD [address] [place] [phone] Surgeon Otolaryngology 12/02/23 documented as of this encounter
--- OUTSIDE RECORDS SUMMARY | 2024-10-04 19:05 | XMS_ITS | Encounter Summary ---
Author Organization [facility] Address [address] [id number] Care Team Providers Care Cyberathlete Name Role Phone Efrain Sarah MD Unavailable [phone] Aris Lynch MD Unavailable [phone] Drew Howell MD Primary Care Provider [phone] Reason for Referral * Consultation (Routine) - Closed Specialty Diagnoses / Procedures Referred By Contac t Referred To Contact Hematology and Oncology Diagnoses 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) Parotid mass Aris Lynch MD [address] [facility] Cancer [address] [phone] Phone: tel: fax: Art Gillette MD [address] [place] [address] Phone: tel: fax: Referral ID Status Reason Start Date Expiration Date V isits Requested Visits Authorized [id number] Closed Specialty Services Required 12/29/2023 06/29/2025 [address] Lynch would like Dr. 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); Parotid mass; Lung nodule seen on imaging study Social History Tobacco Use Types Packs/Day Years [...] Sign Reading Time Taken Comments Blood Pressure 115/70 12/29/2023 10:22 AM EST Pulse 70 12/29/2023 10:22 AM EST Temperature 36.4 ??C (97.5 ??F) 12/29/2023 10:[address] Respiratory Rate 18 12/29/2023 10:22 AM EST Oxygen Saturation 99% 12/29/2023 10:22 AM EST Inhaled Oxygen Concentration - - Weight 74.4 kg (164 lb 0.4 oz) 12/29/2023 10:22 AM EST Height 185.4 cm (6' 0.99 ) 12/29/2023 10:[address] Body Mass Index 21.64 12/29/2023 10:22 AM EST documented in this encounter Miscellaneous Notes * Progress Notes - Aris Lynch MD - 12/29/2023 10:40 AM EST Dear No ref. provider found, I had the pleasure of seeing Mr. Vamsi Mallory in my Head and Neck clinic at the [facility]. As you know, Mr. Vamsi Mallory is [...] denies any worsening dyspnea in clinic today. The patient's complete review of system from 12/29/23 was performed today. All systems were negative [...] I do agree with the interpretation. 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 Tumor Board recommendations: - None Allergies: Allergies [...] ARTERY BYPASS GRAFT N/A CABG (CABG) from [facility] KNEE SURGERY N/A Knee Surgery from [facility] LARYNGOSCOPY SHOULDER SURGERY N/A Shoulder Surgery from [facility] Family history: reviewed and noncontributory Family History [...] Not on file Tobacco Use: High Risk (12/29/2023) Patient History Smoking Tobacco Use: Every Day Smokeless Tobacco Use: Never Passive Exposure: Not on file Transportation Needs: Not on file Depression: Not on file Utilities: Not on file Stress: Not on file Intimate Partner Violence: Not on file Physical Activity: Not on file Social Connections: Not on file Financial Resource Strain: Not on file PHYSICAL EXAMINATION: Visit Vitals BP 115/70 (BP Location: Right arm) Pulse 70 Temp 36.4 ??C (97.5 ??F) (Oral) Ht 1.854 m (6' 0.99 ) Wt 74.4 kg (164 lb 0.4 oz) SpO2 99% BMI 21.64 kg/m?? General: alert and oriented x3; no [...] are be drained with the uninvolved. 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 This was discussed with the patient today. Dr. Gillette will see him tomorrow for consideration of biopsy of one of the hypermetabolic lesions. Labs were also collected today for serum metanephrines, renin, and aldosterone as PET/CT was indeterminate with regard to the adrenal mass. 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 I will have him follow up with me after biopsy to discuss final recommendations for treatment plan. I discussed those findings with the patient [...] hesitate to contactme. Aris Lynch MD, FACS Senior Hardware Design Engineer Head & Neck Surgical Oncology, Thyroid/Parathyroid Surgery, Transoral Robotic Surgery, and Microvascular Reconstruction Department of Otolaryngology - Division of Head & Neck Surgery [facility] - Head, Neck, & Respiratory [facility] documented in this encounter Plan of Treatment Scheduled Referrals Name Type Priority Associated Diagnoses Orde r Schedule Ambulatory referral to Pulmonology Outpatient Referral Routine 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) Parotid mass Expected: 12/29/2023 (Approximate), Expires: 06/28/2025 documented as of this encounter Results * Aldosterone (12/29/2023 12:08 PM EST) Aldosterone 18.4 4.0 - 31.0 ng/dL 12/29/2023 2:15 PM EST [facility] Blood Venous blood specimen / Unknown Venipuncture / Unknown 12/29/2023 12:08 PM EST 12/29/2023 12:42 PM EST Aris Lynch MD LAB BLOOD ORDERABLES Final Res ult Performing Organization Address City/[facility] Co de Phone Number [facility]ARE [facility] [address] [place] [address] * Plasma Renin Activity (LC/MS/MS) (12/29/2023 12:08 PM EST) PRA RESULT 2.07 0.25 - 5.82 ng/mL/h 01/03/2024 9:02 PM EST [facility] ([facility]) Comment: This test was developed and its analytical performance characteristics have been determined by [facility]. It has not been cleared or approved by FDA. This assay has been validated pursuant to the CLIA regulations and is used for clinical purposes. Blood Venous blood specimen / Unknown Venipuncture / Unknown 12/29/2023 12:08 PM EST 12/29/2023 12:20 PM EST Narrative [facility] ([facility]) - 01/03/2024 9:02 PM EST Performing Organization Information: ?Site ID: [id number] ?Name: [employer] ?Address: [address] [place] [id number] ?Director: Odalys Zepeda MD, PhD Aris Lynch MD LAB BLOOD ORDERABLES Final Res ult [facility] ([place]) [facility] [address] [place] [address] * (ABNORMAL) Metanephrines Plasma (12/29/2023 12:08 PM EST) Metanephrine, Free 0.31 <0.50 nmol/L 01/01/2024 2:45 PM EST [facility] ([place]) Comment: ADDITIONAL INFORMATION This test was developed and its performance characteristics determined by [facility] in a manner consistent with CLIA requirements. This test has not been cleared or approved by the U.S. Food and Drug Administration. Test Performed by: [facility] [place] [address]: Manuel Oneill M.D. 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)- Primary Malignant neoplasm of supraglottis Parotid mass Swelling, mass, or lump in head and neck Lung nodule seen on imaging study documented in this encounter Additional Health Concerns Assessment Noted Time A fall risk assessment has been complete d for the patient 12/29/2023 10:19 AM EST documented as of this encounter Care Teams Cyberathlete Relationship Specialty Start Date End Date Drew Howell MD [address] [place] [address] PCP - General 12/23/23 Efrain Sarah MD [address] [place] [address] 12/02/23 Aris Lynch MD [address] [place] [phone] Surgeon Otolaryngology 12/02/23 documented as of this encounter
--- OUTSIDE RECORDS SUMMARY | 2024-10-04 19:05 | XMS_ITS | Encounter Summary ---
Author Organization [facility] Address [address] [place] [address] Care Team Providers Care Buggy Loader Name Role Phone Efrain Sarah MD Unavailable [phone] Aris Lynch MD Unavailable [phone] Pcp, No Primary Care Provider Unavailabl e Drew Howell MD Primary Care Provider [phone] Encounter Details Date Type Department Care Team ([facility] st Contact Info) Description 12/15/2023 Telephone Pav CC Head, Neck & Respiratory [address] [facility], 2nd [place] [address] Aris Lynch MD [address] [facility] [address]nd [place] [address] Social History Tobacco Use Types [...] encounter Miscellaneous Notes * Telephone Encounter - Yue Malloyseveriano Michel - 12/21/2023 10:30 AM EST Patient Phone Message Reason for Call: Please call about patient's authorization for patient's PET scan tomorrow at 9 am? Best contact number and optimal time of day to reach caller: [phone] Note: Please do not reply to this message. Follow-up communication and further actions as a result of this message need to be communicated with the patient directly, if the patient is not active onMyChart. If the patient is active on MyChart, they will receive notification of the communication/outcome via MyChart. * Telephone Encounter - Evelia Rees - 12/15/2023 4:37 PM EST Called and spoke with patient's - explained that Dr. Lynch will go over the results of the scans on 12/29 when they follow up, at that time he will have all of the results of their scans. She expressed understanding and thanked me for calling. * Telephone Encounter - Swathi Robins - 12/15/2023 12:01 PM EST Patient Phone Message Reason for Call:Patient is wanting to know what the result was of the scans? Best contact number and optimal time of day to reach caller:[phone] Note: Please do not reply to this message. Follow-up communication and further actions as a result of this message need to be communicated with the patient directly, if the patient is not active onMyChart. If the patient is active on MyChart, they will receive notification of the communication/outcome via MyChart. documented in this encounter Plan of Treatment Not on file documented as of this encounter Visit Diagnoses Not on filedocumented in this encounter Additional Health Concerns Assessment Noted Time A fall risk assessment has been complete d for the patient 12/08/2023 7:52 AM EST documented as of this encounter Care Teams Buggy Loader Relationship Specialty Start Date End Date Pcp, Olga [address] [place] [address] PCP - General Family Medicine 12/08/23 12/22/23 Drew Howell MD [address] [place] [address] PCP - General 12/23/23 Efrain Sarah MD [address] [place] [address] 12/02/23 Aris Lynch MD [address] [place] [address] Surgeon Otolaryngology 12/02/23 documented as of this encounter
--- OUTSIDE RECORDS SUMMARY | 2024-10-04 19:05 | XMS_ITS | Encounter Summary ---
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 Cancer [facility] 2nd [place] [address] Phone: tel: fax: Art Gillette MD [address] [place] [address] Phone: tel: fax: Referral ID Status Reason Start Date Expiration Date V isits Requested Visits Authorized [id number] Closed Specialty Services Required 12/29/2023 06/29/2025 1 1 Encounter Details Date Type Department Care Team (Late st Contact Info) Description 12/30/2023 1:00 PM EST Office Visit Pav CC Head, Neck & Respiratory 800 [facility], 2nd [place] [address] Art Gillette MD [address] [place] [address] 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); Parotid mass Social History Tobacco Use Types Packs/Day Years [...] Sign Reading Time Taken Comments Blood Pressure 113/64 12/30/2023 12:47 PM EST Pulse 70 12/30/2023 12:47 PM EST Temperature 36.3 ??C (97.4 ??F) 12/30/2023 12:[address] Respiratory Rate 16 12/30/2023 12:47 PM EST Oxygen Saturation 96% 12/30/2023 12:47 PM EST Inhaled Oxygen Concentration - - Weight 74.5 kg (164 lb 3.9 oz) 12/30/2023 12:47 PM EST Height 185.4 cm (6' 0.99 ) 12/30/2023 12:[address] Body Mass Index 21.68 12/30/2023 12:47 PM EST documented in this encounter Miscellaneous Notes * Clinician Note - Yazmin Branham RN - 12/30/2023 1:00 PM EST Interventional Pulmonology [facility] Head, Neck [place] [address] Clinic: [phone] Patient Optics Test Technician: [phone] Dear Vamsi Mallory You are scheduled for: Robotic Navigational Bronchoscopy and Endobronchial Ultrasound : December 31, 2023 at 12:00 pm with an arrival time of 10:00 am. Surgery Manager Qa & Waiting on the first floor of [facility] (Park in the hospital parking garage on the corner of [address] [facility]. Take the pedway on level C into the hospital. As you come to the end of the pedway, look up and on the right for a sign that says Surgery Waiting & Manager Qa. Follow those signs to the front office assistant.) *NOTHING TO EAT OR DRINK AFTER MIDNIGHT THE NIGHT BEFORE* *YOU WILL RECEIVE A CALL FROM THE PRE OP CLINIC PRIOR TO YOU PROCEDURE AND THEY WILL GIVE INSTRUCTIONS ABOUT YOUR MEDICATIONS ON DAY OF PROCEDURE* *YOU WILL NEED A CUT OFF SAW GRADER* *STOP BLOOD THINNERS* Call [place] at [phone] for any additional questions or concerns. * Progress Notes - Art Gillette MD - 12/30/2023 1:00 PM EST Images from the original note were not included. HEAD, NECK, RESPIRATORY CLINIC Referring: Dr Cris MD ( ENT) Chief Complaint PET avid lung nodules History Of Present Illness Vamsi Mallory is a 78 y.o. male smoker presenting with lung nodule in the RUL . We are seeing the patient as a consult, on the request of Aris Lynch MD. He has a PMH of CABG in 2009, defibrillator placement, DM, COPD. He reports around two months ago he began having throat pain, dysphagia/odynophagia and dysphonia along with fatigue and poor oral intake. He presented to OSH for further evaluation and was noted to have a large laryngeal mass for which he underwent biopsy on 12/01 with pathology showing SCC. He was then referred to [facility] for further management. As part of work-up, he had a PET scan on 12/22 showing two hypermetabolic pulmonary nodules; right infrahilar nodule demonstrates a maximum SUV of 16.2.and RUL nodule demonstrates maximum SUV of 10.7. He states he has been smoking since age of 8; was smoking 3-3.5 packs/day for longer than 20 years but has recently cut down to 1 pack/day last several months. History of COPD with occasional albuterol inhaler use; previously on 2.5L oxygen but has not required oxygen for last several months. He reports no worsening of respiratory symptoms. He has a supra glottic mass / squamous cell carcinoma. He had progressive odynophagia and dysphagia. Hot potato voice. He has weight loss, denies otorrhea, tinnitus. He has slight stridor. Past Medical History He has a past [...] by mouth 1 (one) time each day. (Patientnot taking: Reported on 12/30/2023), Disp: , Rfl: cetirizine (ZyrTEC) 10 MG tablet, Take 1 tablet (10 mg) by mouth 1 (one) time each day. (Patient not taking: Reported on 12/30/2023), Disp: , Rfl: cholecalciferol (Vitamin D-3) 50 [...] each day. (Patient not taking: Reported on 12/30/2023), Disp: , Rfl: dulaglutide (Trulicity) 1.5 MG/0.5ML solution pen-injector inj. pen, Inject 1.5 mg under the skin 1(one) time per week. Sundays (Patient not taking: Reported on 12/30/2023), Disp: , Rfl: Eliquis 5 MG tablet, Take 1 tablet (5 mg) by mouth 2 (two) times a day. (Patient not taking: Reported on 12/30/2023), Disp: , Rfl: empagliflozin (Jardiance) 25 MG, Take 1 tablet (25 mg) by mouth 1 (one) time each day. (Patient nottaking: Reported on 12/30/2023), Disp: , Rfl: furosemide (Lasix) 40 MG tablet, Take 1 tablet (40 mg) by mouth every other day. (Patient not taking: Reported on 12/30/2023), Disp: , Rfl: losartan (Cozaar) 50 MG tablet, Take 1 tablet (50 mg) by mouth 1 (one) time each day. (Patient not taking: Reported on 12/30/2023), Disp: , Rfl: metFORMIN XR (Glucophage-XR) 750 MG 24 hr tablet, Take 1 tablet (750 mg) by mouth 2 (two) times a day. Do not crush, chew, or split. (Patient not taking: Reported on 12/30/2023), Disp: , Rfl: metoprolol succinate XL (Toprol-XL) 100 MG 24 hr tablet, Take 1 tablet (100 mg) by mouth 1 (one) time each day. Do not crush or chew. (Patient not taking: Reported on 12/30/2023), Disp: , Rfl: Nutritional Supplements (isosource 1.5 Perry/mL), 250 mL by Per G Tube route 5 (five) times a day. (Patient taking differently: 250 mL by Per G Tube route 5 (five) times a day. Patient does 4 times a day), Disp: 97446 mL, Rfl: 2 oxyCODONE (Roxicodone) 5 MG immediate release tablet, 1 tablet (5 mg) by Per G Tube route every 6 (six) hours if needed for severe pain. (Patient not taking: Reported on 12/28/2023), Disp: 12 tablet, Rfl: 0 pantoprazole (Protonix) 40 MG EC tablet, Take 1 tablet (40 mg) by mouth 1 (one) time each day. Do not crush, chew, or split. (Patient not taking: Reported on 12/30/2023), Disp: , Rfl: spironolactone (Aldactone) 25 MG tablet, Take 1 tablet (25 mg) by mouth 1 (one) time each day. (Patient not taking: Reported on 12/30/2023), Disp: , Rfl: tamsulosin (Flomax) 0.4 MG 24 hr capsule, Take 1 capsule (0.4 mg) by mouth 1 (one) time each day. (Patient not taking: Reported on 12/30/2023), Disp: , Rfl: Physical Exam GENERAL: thin gentleman EYES: anicteric sclerae, moist conjunctivae; no lid-lag; PERRLA HENT: Atraumatic; oropharynx clear with moist mucous membranes and no mucosal ulcerations; normal hard and soft palate NECK: Trachea midline; Neck is supple, no thyromegaly or lymphadenopathy . RESP: Airway patent, good air movement, respirations non labored. Breath sounds clear to auscultation. No wheezing. CARD: RRR, without murmur, rubs, or gallop Extremities: No edema, cyanosis or clubbing. Pulses palpable +2. GI: No organomegaly or masses. Abdomen is soft, nontender and nondistended. BS present x 4 quadrants SKIN: Normal temperature, turgor and texture; no rash, ulcers or subcutaneous nodules NEURO: Aa0x3 Last Recorded Vitals There were no vitals taken for this visit. Results Radiology CT chest 12/08/23 PET scan 12/22/23 Assessment and Plan Vamsi Mallory is a 78 y.o. male who we are seeing on the request of Dr Lynch. && male smoker with a supraglottic mass that is squamous cell cancer. ON PET he has a RUL anterior segment axillary subsegmental nodule that is FDG avid on PET and a RLL superior segment are that is PET positive, but there is no obvious nodule in the RLL. The lung nodules will make a big difference in how the supra glottic mass is treated. Dr Lynch hasscheduled the patient for a planned surgical tracheostomy placement in the OR tomorrow 12 pm and shanti perform bronchoscopy at the same time. After reviewing the images we may be able to reach the RUL axillary anterior axillary nodule with adiagnostic scope, if not we will have to resort to Ion robotic bronchoscopy as back up. EBUS TBNA will also be performed for mediastinal and hilar surveillance. We have requested or a size [address] tr[address] Depending on availabilty Dr Mathieu I or Dr sloan will performthe procedure tomorrow. 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) Malignant neoplasm of supraglottis Parotid mass Swelling, mass, or lump in head and neck documented in this encounter Additional Health Concerns Assessment Noted Time A fall risk assessment has been complete d for the patient 12/30/2023 12:46 PM EST A Body Mass Index follow-up plan has been documented for the patient 12/31/2023 11:21 AM EST documented as of this encounter Care Teams Deckhand Oyster Dredge Relationship Specialty Start Date End Date Drew Howell MD [address] [place] [address] PCP - General 12/23/23 Efrain Sarah MD [address] [place] [address] 12/02/23 Aris Lynch MD [address] [place] [address] [phone] Surgeon Otolaryngology 12/02/23 documented as of this encounter
--- OUTSIDE RECORDS SUMMARY | 2024-10-04 19:05 | XMS_ITS | Encounter Summary ---
Author Organization [facility] Address [address] [place] [address] Care Team Providers Care Ruby Software Developer Name Role Phone Efrain Sarah MD Unavailable [phone] Aris Lynch MD Unavailable [phone] Pcp, Olga Primary Care Provider Unavailabl e Encounter Details Date Type Department Care Team (Latest Contact Info) Description 12/13/2023 Travel Social History Tobacco Use Types Packs/Day [...] documented as of this encounter Care Teams Ruby Software Developer Relationship Specialty Start Date End Date Pcp, No [address] [place] [address] PCP - General Family Medicine 12/08/23 12/22/23 Efrain Sarah MD [address] [place] [address] 12/02/23 Aris Lynch MD 800 [facility] Cancer [address] [address] Surgeon Otolaryngology 12/02/23 documented as of this encounter
--- OUTSIDE RECORDS SUMMARY | 2024-10-04 19:05 | XMS_ITS | Encounter Summary ---
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) Procedures PET/CT FDG Skull Base To Mid Thigh Aris Lynch MD 800 [facility] [address] [place] [address] Phone: tel: fax: Referral ID Status Reason Start Date Expiration Date V isits Requested Visits Authorized [id number] Authorized 12/15/2023 06/15/2025 2 2 Encounter Details Date Type Department Care Team (Late st Contact Info) Description 12/15/2023 Orders Only Pav CC Head, Neck & Respiratory 800 [facility], 2nd [place] [address] Aris Lynch MD 800 [facility] [address] [place] [phone] SCC (squamous cell carcinoma) of supraglottis [...] of this encounter Plan of Treatment Scheduled Orders Name Type Priority Associated Diagnoses Orde r Schedule PET/CT FDG Skull Base To Mid Thigh Imaging Routine 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) Expected: 12/15/2023 (Approximate), Expires: 06/14/2025 documented as of this encounter Visit Diagnoses Diagnosis 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
--- OUTSIDE RECORDS SUMMARY | 2024-10-04 19:05 | XMS_ITS | Encounter Summary ---
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 Patient Care Team Patient Care Team: Drew Howell MD as PCP - General Efrain Sarah MD Dunlap, Quinn A, MD as Surgeon (Otolaryngology) Vamsi Mallory is a 78 y.o. male. Subjective : Pt presents to the office in f/u for discussion of planned management of his SCCA of his larynx and pulmonary neoplasia discovered on CT PET. He is s/p recent PEG placement under generalanesthesia without issue. He is scheduled next week for DL with bx as well as EBUS and is scheduledfor tracheostomy. He does not want a tracheostomy, but clearly desires to have his cancers evaluated and managed safely. He has a five month history of dysphagia and a 125 lb weight loss from progressive odynophagia and dysphagia. He has some GARCIA and hoarseness. Has a 4-5 pack per day smoking history for 70 years. Has a history of a CABG, defibrillator, diabetes mellitus, COPD. Denies blood thinners other than aspirin . Has allergy to penicillins. 12/29/2023: PET/CT with right infrahilar node and a RUL nodule with SUV of 16 and 10 respectively. Activity in larynx and right level 2 neck. Mild activity in 3.3 cm adrenal mass. Oncology History Overview Note Larynx cancer: T3 [...] Signed by Aris Lynch MD on 12/08/2023 Performance Status: Symptomatic; fully ambulatory Pain Scale: Nutrition Assessment Anthropometrics: Wt Readings from Last 3 Encounters: 12/30/23 74.5 kg (164 lb 3.9 oz) 12/30/23 74.5 kg (164 lb 3.9 oz) 12/29/23 74.4 kg (164 lb 0.4 oz) Ht Readings from Last 1 Encounters: 12/30/23 1.854 m (6' 0.99 ) BMI Readings from Last 1 Encounters: 12/30/23 21.68 kg/m?? Biochemical: Lab Results Component Value Date GLUCOSE 93 12/08/2023 CALCIUM 9.6 12/08/2023 NA 139 12/08/2023 K 4.4 12/08/2023 CO2 28 12/08/2023 CL 100 12/08/2023 BUN 16 12/08/2023 CREATININE 0.96 12/08/2023 Objective Vital Signs for this encounter: Visit Vitals Smoking Status Every Day BSA: There is no height or weight on file to calculate BSA. BMI: There is no height or weight on file to calculate BMI. Physical Exam: PHYSICAL EXAMINATION: GENERAL: Weight, BMI and Vital signs reviewed and recorded in EMR. Pt is awake, alert, non-toxic appearing, and in no acute distress. SKIN: No lesions suspicious for malignancy (ulcerated, cellulitic, or indurated lesions) of the head or neck skin. HEAD: Normocephalic and atraumatic. Sinuses are non-tender to palpation. EARS: The pinnas are well-formed. External auditory canals are non-stenotic bilaterally. No middle ear pathology is appreciated. EYES: Extraocular muscles are intact. The sclera and conjunctiva are normal. Pupils are equal and round. NOSE: The nasal dorsum is without scar or deformity. Anterior rhinoscopy reveals no mucopurulence or polyps. The septum is non-obstructing with nasal airways appearing patent bilaterally. ORAL CAVITY AND OROPHARYNX: The oral cavity and pharynx fail to reveal any mucosal masses or lesions. The floor of mouth is soft and tongue base is soft without masses. There is appropriate incisor opening without trismus. The palate elevates symmetrically. The uvula is midline. LARYNX: Indirect laryngoscopy reveals a large left supraglottic tumor that covers the glottic larynx and obscures visualization of the left TVC and the right is mobile. The left cannot be evaluated. NECK: The neck is without masses beside LAD. Salivary glands are without masses or induration. No crepitus or masses are appreciated. The trachea is in midline. LYMPHATIC: 2.5 cm left TYLER node mobile nontender. No other palpable lymphadenopathy of the head or neck ENDOCRINE: The thyroid is without palpable nodules, tenderness, or enlargement. NEUROLOGICAL: Sidney Coma Score is 15. Cranial nerves II-, VIII-XII are grossly intact. The facial nerve (VII) has a House-Brackman Grade 1 of 6 bilaterally. There is no evidence of nystagmus or gross asymmetry on exam. There are no gross focal deficits PSYCHIATRIC: Pt is alert and oriented ??3. Mood and affect are normal and appropriate. CHEST: Breathing is non-labored without use of accessory muscles. There is symmetric chest wall expansion. Lungs are clear to auscultation CARDIOVASCULAR: Heart is regular without murmurs. EXTREMITIES: No cyanosis or deformity. No peripheral edema noted. ABDOMEN: The abdomen is soft, nontender, without organomegaly, benign PEG in LUQ without cellulitis. Procedure: None Performed Results Personally Reviewed this visit by Dr. Ortega: WBC Count (10*3/uL) Date/Time Value 12/08/2023 1008 11.06 (H) HGB (g/dL) Date/Time Value 12/08/2023 1008 13.7 HCT (%) Date/Time Value 12/08/2023 1008 41.3 Platelet Count (10*3/uL) Date/Time Value 12/08/2023 1008 222 Thyroid Stimulating Hormone, Plasma (uIU/mL) Date/Time Value 12/08/2023 1008 1.52 Impression/Plan: Larynx cancer Pt on for DL with bx next week Airway indeed is compromised. Pt intubated with fiberoptic intubation without issue two weeks ago. No significant tumor progression. Likely could be intubated again. Tumor is exophytic and may be able to be debulked adequately for the required 8- 0 tube for EBUS evaluation of lung tumors Tracheostomy will be required if this is not possible. I had a 20 minute conversation with the pt after reviewing the case, hx images and video imaging today 30 minute for the encounter Answered pt and 's concerns Discussed case with Dr. Gunn. Pt now willing to proceed with surgery next week. Problem List Items Addressed This Visit None No follow-ups on file. Past Medical History: Diagnosis Date Allergies Arthritis [...] of pneumonia Shortness of breath Sinus problem Family History Problem Relation Name Age of Onset Diabetes Mother Heart attack Mother Gout Father Conversions - Other Sister Accident Conversions - Other Brother Accident Arthritis Other Conversions - Other Other herpes zoster infection Other cancer Other Anesthesia problems Neg Hx Malig Hyperthermia Neg Hx Past Surgical History: Procedure Laterality Date CARDIAC PACEMAKER PLACEMENT CORONARY ARTERY BYPASS GRAFT N/A CABG (CABG) from [facility] KNEE SURGERY N/A Knee Surgery from [facility] LARYNGOSCOPY SHOULDER SURGERY N/A Shoulder Surgery from [facility] Social History Tobacco Use Smoking Status Every Day Packs/day: 1.00 Years: 70.00 Additional pack years: 0.00 Total pack years: 70.00 Types: Cigarettes Start date: 1952 Smokeless Tobacco Never Tobacco Comments Trying to quit reports that he has been smoking cigarettes. He started smoking about 70 years ago. He has a 70.00 pack-year smoking history. He has never used smokeless tobacco. He reports that he does not drink alcohol and does not use drugs. Allergies Allergen Reactions Penicillins Hives and Rash Current Outpatient Medications on File Prior to [...] day. Patient does 4 times a day) 49803 mL 2 oxyCODONE (Roxicodone) 5 MG immediate [...] facility-administered medications on file prior to visit. Immunization History Administered Date(s) Administered Influenza, seasonal, injectable 11/01/2012, 11/01/2013 Ch[place] COVID-19 Vaccine (Blue Cap) 18+ 06/18/2021 Pneumococcal Polysaccharide PPV23 11/01/2012, 11/01/2013 JOSI was reviewed and if narcotics were ordered as part of [facility] protocols. 14 point review of systems negative except as noted above. Review of Systems Cezar Ortega MD documented in this encounter Plan of Treatment [...] documented as of this encounter Care Teams Tax Compliance Agent Relationship Specialty Start Date End Date Drew Howell MD [address] [place] [address] PCP - General 12/23/23 Efrain Sarah MD [address] [place] [address] 12/02/23 Aris Lynch MD [address] [place] [address] [id number] Surgeon Otolaryngology 12/02/23 documented as of this encounter
--- OUTSIDE RECORDS SUMMARY | 2024-10-04 19:05 | XMS_ITS | Encounter Summary ---
Author Organization [facility] Address [address] [place] [address] Care Team Providers Care It Corporate Recruiter Name Role Phone Efrain Sarah MD Unavailable [phone] Aris Lynch MD Unavailable [phone] Drew Howell MD Primary Care Provider [phone] Reason for Referral * Home Health (Routine) - Authorized Specialty Diagnoses / Procedures Referred By Osmany alberto Referred To Contact Home Health Services Diagnoses Malignant neoplasm of larynx (CMS/HCC) Aris Lynch MD [address] [address] Phone: tel: fax: Referral ID Status Reason Start Date Expiration Date Visits Requested Visits Authorized [id number] Authorized Specialty Services Required 01/01/2024 07/02/2025 999 999 Reason for Visit * Auth/Cert (Routine) Specialty Diagnoses / Procedures Referred By Osmany alberto Referred To Contact Diagnoses 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] Procedures [place] BRONCHOSCOPY,COMPUTER ASSIST/IMAGE-GUIDED NAVIGATION [place] BRONCHOSCOPY,DIAGNOSTIC W BRUSH [place] BRONCHOSCOPY,DIAGNOSTIC W LAVAGE [place] BRONCHOSCOPY,BIOPSY [place] BRONCHOSCOPY,TRANSBRONCH BIOPSY [place] BRONCHOSCOPY,TRANSBRON ASPIR BX [place] [facility] EBUS GUIDED SAMPL 1/2 NODE STATION/STRUX [place] [facility]PL 3/> NODE STATION/STRUX CREATION, TRACHEOSTOMY ION ROBOT BRONCHOSCOPY, NAVIGATIONAL Aris Lynch MD [address] [address] Phone: tel: fax: [facility] A OPERATING ROOM 800 [place] [address] Phone: tel: Referral ID Status Reason Start Date Expiration Date Visits Re quested Visits Authorized [id number] 1 1 Encounter Details Date Type Department Care Team (Latest Contact Info) Description 12/31/2023 6:36 AM EST - 01/01/2024 11:19 AM EST Hospital Encounter [facility] A Inpatient [address] [place] [address] Aris Lynch MD 800 [facility] [address] [place] [address] Malignant neoplasm of larynx (CMS/HCC) Discharge Disposition: Home-Health Care Svc Social History Tobacco Use Types Packs/Day Years [...] Sign Reading Time Taken Comments Blood Pressure 96/59 01/01/2024 7:19 AM EST Pulse 71 01/01/2024 7:19 AM EST Temperature 36.8 ??C (98.2 ??F) 01/01/2024 7:19 AM ES T Respiratory Rate 16 01/01/2024 7:19 AM EST Oxygen Saturation 97% 01/01/2024 7:19 AM EST Inhaled Oxygen Concentration - - [...] Center 01/10/2024 9:20 AM Aris Lynch MD [facility] Third Floor, Wing [address], [address] [address] Call [phone] for questions regarding appointment times documented in [...] by mouth 2 (two) times a day. March resume taking on 01/03/24. 01/03/2024 empagliflozin (Jardiance) [...] Tube route 5 (five) times a day. 18182 mL 2 12/09/2023 documented as of this encounter Miscellaneous Notes * Progress Notes - Faviola Oscar RN - 01/01/2024 11:19 AM EST Case Management Discharge Note Vamsi Mallory 78 y.o. male CSN: [id number] Admission: 12/31/2023 6:36 AM Primary Problem: Malignant neoplasm of larynx (CMS/HCC) Primary Refinery Operator Visbreaking: Assistance Available at Discharge: Family/Refinery Operator Visbreaking(s) Willingness Assessed to care for patient at home: Yes Family/Refinery Operator Visbreaking(s) Readiness Assessed to care for patient at home: Yes Housing Circumstances-Z Codes: Patient Referred to Financial or Community Resources: Discharge Facility/Level of Care Needs: Discharge Facility/Level of Care Needs: [facility] [facility] [place] Choice of Community Agency(s): Patient/Family Anticipated Services at Transition: Patient/Family Anticipated Services at Transition: onsite case manager DME/Equipment Needed after Discharge: Equipment Currently Used at Home: colostomy/ostomy/enteral supplies Equipment Needed After Discharge: colostomy/ostomy/enteral supplies Readmission Within the Last 30 Days: Readmission Within the Last 30 Days: no previous admission in last 30 days Medicare [facility]ation: [facility] is current with agency for tube feeds. Discharge Transportation: Transportation Anticipated: family or friend will provide Transportation Home at Discharge: Family/Friend will Provide Has discharge transport been arranged?: Yes What day is the transport expected?: 01/01/24 Follow Up Transport: Transportation Needed to Follow up Appoinments: Family/Friend will Provide Additional Comments: Pt has been accepted by [facility]. POC reviewed with primary team. Refer to primary team's discharge note for details. Medically readyto discharge today. Accepted by above [facility]. They will call patient to arrange a home visit. Patient agrees to dc home today and agrees with above DC plan. In??SOPHY White, vocational case manager * Discharge Summary - Tova Huggins MD - 01/01/2024 10:06 AM EST Hospitalization Admit Date/Time: 12/31/2023 6:36 AM Admitting Attending: Aris Lynch Discharge Date: 01/01/24 Discharge Attending Physician: Aris Lynch MD PCP name and Address: Drew Howell MD [address] [address] / [place] [address] Referring provider name and address: No referring [...] 01/10/2024 9:20 AM Aris Lynch MD [facility] Third Floor, [facility], [address] [address] Call [phone] for questions regarding appointment times Outpatient Follow-Up Future Appointments Date Time Provider Department Center 01/10/2024 9:20 AM Aris Lynch MD [facility] Arvizu Test Results Pending At Discharge Pending [...] RN - 12/31/2023 1:48 PM EST Scope: [id number] Leak: Passed Date: 12/31/2023 Expires 01/07/2024 * Op Note - Kasi Torres MD - 12/31/2023 1:48 PM EST OTOLARYNGOLOGY-HEAD AND NECK SURGERY OPERATIVE NOTE PATIENT NAME:? [facility]i [facility] DATE OF /AGE: 10 1945, 78 y.o. DATE OF PROCEDURE: ?12/31/23 LOCATION: [facility] PREOPERATIVE DIAGNOSES:? Malignant neoplasm of larynx (CMS/HCC) POSTOPERATIVE DIAGNOSES:? Same PROCEDURE PERFORMED:? LARYNGOSCOPY, DIRECT, WITH BIOPSY, VOCAL CORD STRIPPING (Bilateral) BRONCHOSCOPY (Right) ATTENDING PHYSICIAN:? Aris Lynch MD RESIDENT PHYSICIAN: Kasi Torres MD ANESTHESIA:? General ASA: IV OR TEAM: Anesthesiologist: Kasi Armando DO AUTOMOTIVE LUBE TECHNICIAN: Estee Velasco CRNA, DNP [place] Bottom Maker: Shelli Colleir; Darin Simpson RN Scrub Person: Ida Griffin ESTIMATED BLOOD LOSS: Less than 5 mL. IMPLANTS, DRAINS AND STENTS:? Nothing was implanted during the procedure SPECIMENS:? ID Type Source Tests Collected by Time 1 : Laryngeal Mass for permanent Tissue Larynx SURGICAL PATHOLOGY EXAM Aris Lynch MD [id number] 2 : RUL - endobronchial Bx Fine [...] intubated by our team with a 5-0 MEDICAL TRANSCRIPTION SUPERVISOR using the glidescope. The mass was obscuringthe [...] vocal folds into better view. The 5-0 MEDICAL TRANSCRIPTION SUPERVISOR was exchanged for an 8-0 ETT. This [...] thus was not performed. Aris Lynch MD Market Consultant Head & Neck Surgical Oncology, Thyroid/Parathyroid Surgery, Transoral Robotic Surgery, and Microvascular Reconstruction Department of Otolaryngology - Division of Head & Neck Surgery [facility] - [facility], Ne[facility] & Res[facility] * Op Note - Olivier Aguilar MD - 12/31/2023 1:48 PM EST Operative Note Date: 12/31/23 Location: [facility] Name: Vamsi Mallory, : 1945, Diagnoses: Pre-op Diagnosis Malignant neoplasm of larynx (CMS/HCC) Post-op Diagnosis Malignant neoplasm of larynx (CMS/HCC) Procedure(s): Bronchoscopy Endobronchial biopsy. Attending Surgeon(s): Panel 1: * Aris Lynch - Primary Panel 2: * Art Gillette - Primary Fabricator Artificial Breast(s): Panel 1: * Kasi Torres MD - [...] 12/31/2023 1:48 PM EST Date: 12/31/23 Location: [facility] Name: Vamsi Mallory, : 1945, Diagnoses: Pre-op Diagnosis Malignant neoplasm of larynx (CMS/HCC) Post-op Diagnosis Malignant neoplasm of larynx (CMS/HCC) Procedure(s): Bronchoscopy Endobronchial Biopsy Attending Surgeon(s): Panel 1: * Aris Lynch - Primary Panel 2: * Art Gillette - Primary Fabricator Artificial Breast(s): Panel 1: * Kasi Torres MD - [...] ARTERY BYPASS GRAFT N/A CABG (CABG) from [employer] KNEE SURGERY N/A Knee Surgery from [employer] LARYNGOSCOPY SHOULDER SURGERY N/A Shoulder Surgery from [employer] FAMILY HISTORY Family History Problem Relation Name [...] not taking: Reported on 12/30/2023 10/21/23 Young Ricktets MD tamsulosin (Flomax) 0.4 MG 24 hr [...] Procedure Summary Date: 12/31/23 Room / Location: [address] [place] [address] Anesthesia Start: Anesthesia Stop: Procedures: CREATION, TRACHEOSTOMY [...] Otolaryngology-Head & Neck Surgery PGY-4 Resident P. [phone] Cosigned by Aris Lynch MD at 12/31/2023 3:31 PM EST * Progress Notes - Faviola Oscar RN - 12/31/2023 8:45 AM EST Patient to the OR today. CM will follow for discharge planning and obtain an initial assessment when patient is available. In??s SOPHY Coleman, vocational case manager * Interval H&P Note - Tyron iGl MD - 12/31/2023 8:42 AM EST H&P [...] 1 mL Intravenous q8h PRN Zafar Zuniga, Review of Systems 14 point review of [...] Order Schedule Discharge Ambulatory referral to NON [facility] Outpatient Referral Routine Malignant neoplasm of larynx (CMS/HCC) 1 Occurrences starting 01/01/2024 until 07/03/2025 documented as of this encounter Procedures Procedure Name Priority Date/Time Associated Diagnosis Comments SURGICAL PATHOLOGY EXAM Routine 12/31/2023 5:10 PM EST POCT GLUCOSE METER UNSOLICITED RESULTS Routine 12/31/2023 3:08 PM EST SURGICAL PATHOLOGY EXAM Routine 12/31/2023 1:57 PM EST Malignant neoplasm of larynx (CMS/HCC) [place] BRONCHOSCOPY,BIOPSY 12/31/2023 1:12 PM EST Malignant neoplasm of larynx (CMS/HCC) [place] BRONCHOSCOPY,DIAGNOS TIC 12/31/2023 1:12 PM EST Malignant neoplasm of larynx (CMS/HCC) LARYNGOSCOPY, DIRECT, WITH BIOPSY 12/31/2023 1:12 PM EST Malignant neoplasm of larynx (CMS/HCC) POCT GLUCOSE METER UNSOLICITED RESULTS Routine 12/31/2023 8:08 AM EST SURGICAL PATHOLOGY EXAM Routine 12/31/2023 documented in this encounter Results * Surgical Pathology Exam (12/31/2023 5:10 PM EST) Case Report Surgical Pathology ?Case: [id number] ? Authorizing Provider: ??Aris Lynch MD ?Collected: [...] lower lobe ? 4 12:34 PM EST [facility] Final Diagnosis A. LARYNGEAL MASS, BIOPSY: - MODERATELY DIFFERENTIATED SQUAMOUS CELL CARCINOMA. B. LUNG, RIGHT UPPER LOBE, BIOPSY: - MODERATELY DIFFERENTIATED SQUAMOUS CELL CARCINOMA. C. LUNG, RIGHT LOWER LOBE, BIOPSY: - MODERATELY DIFFERENTIATED SQUAMOUS CELL CARCINOMA. 4 12:34 PM EST [facility] Comment It is noted that the [...] the lung biopsies. 4 12:34 PM EST [facility] Tumor Blocks Tumor blocks: C1, A2 4 12:34 PM [facility] Clinical Information Malignant neoplasm of larynx (CMS/HCC) [C32.9] 4 12:34 PM EST [facility] Gross Description A. LARYNGEAL MASS FOR [...] cassette C1. Tresa Muir 4 12:34 PM [facility] Intradepartmental Consultation with Agreement Dr. Whitney Dennis 12:34 PM EST [facility] Tissue Structure of lower lobe of [...] ORDERABLES Dee l Result Performing Organization Address City/[facility] Co de Phone Number [facility] [address] [place] [address] * (ABNORMAL) POCT glucose meter (12/31/2023 3:08 PM EST) POCT Glucose 116(H) 74 - 99 mg/dL 12/31/2023 3:10 PM EST [facility] Comment:Accuracy of a glucos e result [...] for testing. Comment 12/31/2023 3:10 PM EST [facility] Sales Representative Door To Door ID Linda Byrd 12/31/2023 3:10 PM EST [facility] Device ID [id number] 12/31/2023 3:10 PM EST [facility] Specimen Type POC Capillary 12/31/2023 3:10 PM EST [facility] Blood Capillary blood specimen / Unknown 12/31/2023 3:08 PM EST 12/31/2023 3:10 PM EST us Aris Lynch MD LAB POINT OF CARE TE ST DOCKED DEVICE UNSOLICITED RESULTS Final Result Performing Organization Address City/[facility]/ZIP Co de Phone Number [facility] [address] [place] [address] * Surgical Pathology Exam (12/31/2023 1:57 PM EST) Case Report Surgical Pathology ?Case: [id number] ? Authorizing Provider: ??Aris Lynch MD ?Collected: [...] SQUAMOUS CELL CARCINOMA. 4 12:34 PM EST [facility] Comment It is noted that the [...] the lung biopsies. 4 12:34 PM EST [facility] Tumor Blocks Tumor blocks: C1, A2 12:34 PM EST [facility] Clinical Information Malignant neoplasm of larynx (CMS/HCC) [C32.9] 12:34 PM EST [facility] Gross Description A. LARYNGEAL MASS FOR [...] C1. Tresa Muir 4 12:34 PM EST [facility] Intradepartmental Consultation with Agreement Dr. 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 de Phone Number [facility] [address] [place] [address] * POCT glucose meter (12/31/2023 8:08 AM EST) POCT Glucose 94 74 - 99 mg/dL 01/03/2024 5:19 AM EST [facility] Comment:Accuracy of a [...] for testing. Comment 01/03/2024 5:19 AM EST [facility] Sales Representative Door To Door ID Marge Ceballos 024 5:19 AM EST [facility] Device ID [id number] 01/03/2024 5:19 AM EST [facility] Specimen Type POC Capillary 01/03/2024 5:19 AM EST [facility] Blood Capillary blood specimen / Unknown 12/31/2023 8:08 AM EST 01/03/2024 5:19 AM EST us Aris Lynch MD LAB POINT OF CARE TE ST DOCKED DEVICE UNSOLICITED RESULTS Final Result Performing Organization Address [facility] de Phone Number [facility] [address] [place] [address] * Surgical Pathology Exam (12/31/2023) Case Report Surgical Pathology ?Case: [id number] ? Authorizing Provider: ??Aris Lynch MD ?Collected: [...] lobe ? 4 12:34 PM EST [facility] Final Diagnosis A. LARYNGEAL MASS, BIOPSY: [...] the lung biopsies. 4 12:34 PM EST [facility] Tumor Blocks Tumor blocks: C1, A2 4 12:34 PM EST [facility] Clinical Information Malignant neoplasm of larynx (CMS/HCC) [C32.9] 4 12:34 PM EST [facility] Gross Description A. LARYNGEAL MASS FOR [...] C1. Tresa Muir 4 12:34 PM EST [facility] Intradepartmental Consultation with Agreement Dr. Whitney Dennis 4 12:34 PM EST [facility] Tissue Structure of upper lobe of right lung / Unknown 12/31/2023 12/31/2023 5:12 PM EST Tissue specimen (specimen) Laryngeal structure / Unknown 12/31/2023 1:57 PM EST 12/31/2023 3:22 PM EST Tissue specimen (specimen) Structure of lower lobe of right lung / Unknown 12/31/2023 5:10 PM EST 12/31/2023 5:10 PM EST us Art Gillette MD LAB PATHOLOGY ORDERABLES Dee chiu Result [facility] [address] [place] [address] documented in this encounter Visit Diagnoses Diagnosis Malignant neoplasm of larynx (CMS/HCC)- Primary Malignant neoplasm of larynx, unspecified site documented in this encounter Admitting Diagnoses Diagnosis Malignant neoplasm of larynx (CMS/HCC) Malignant neoplasm of larynx, unspecified site documented in this encounter Administered Medications Inactive Administered Medications - up to 3 most recent administrations Medication Order MAR Action Action Date Dose Rate Site fentaNYL (Sublimaze) injection 25 mcg 25 mcg, Intravenous, Every 5 min PRN, 2 doses, Starting on Wed12/31/23 at 1436, Until Wed12/31/23 at 1850, Routine, Recovery (Phase I only), pain score of 3-4 out of 10 Given 12/31/2023 3:20 PM EST 25 mcg phenylephrine 25 mg in NS 250 mL (0.1 mg/mL) infusion (compounding pharmacy premix) Intravenous, Continuous PRN, Starting on Wed12/31/23 at 1429, Until Wed12/31/23 at 1513, Routine, Anesthesia Intraprocedure Rate/Dose Change 12/31/2023 3:41 PM EST 0.1 mcg/kg/min 4.47 mL/hr Rate/Dose Change 12/31/2023 3:15 PM EST 0.3 mcg/kg/min 13. 41 mL/hr Continued from OR 12/31/2023 3:05 PM EST 0.5 mcg/kg/min 22 .4 mL/hr sodium chloride 0.9 % flush 10 mL [...] Comment: Automatically canceled at discontinue of medication order)195 (Given - Provider: Judith Pennington) 0855 (Given - Provider: Alida Frank, NICOLE) PRN Medication Order 12/30/2023 12/31/2023 01/01/2024 fentaNYL (Sublimaze) injection 25 mcg (CANCELED) 25 mcg, Intravenous, Every 5 min PRN, 2 doses, Starting on Wed12/31/23 at 1436, Until Wed12/31/23 at 1850, Routine, Recovery (Phase I only), pain score of 3-4 out of 10 1520 (Given - Provider: Hina Atkins RN) phenylephrine 25 mg in NS 250 mL (0.1 mg/mL) infusion (compounding pharmacy premix) (CANCELED) Intravenous, Continuous PRN, Starting on Wed12/31/23 at 1429, Until Wed12/31/23 at 1513, Routine, Anesthesia Intraprocedure 1429 (New Bag - Provider: Estee Velasco CRNA, MEGHAN)1451 (Rate/Dose Change - Provider: Estee Velasco CRNA, MEGHAN)1458 (Rate/Dose Change - Provider: Estee Velasco CRNA, MEGHAN)1505 (Continued from OR - Provider: Hina Atkins RN)1515 (Rate/Dose Change - Provider: Hina Atkins RN)1541 (Rate/Dose Change - Provider: Alfredo Teague, NICOLE)1600 (Stopped - Provider: Alfredo Teague RN) sodium chloride 0.9 % flush 10 mL(Linked Group 1) 10 mL, Intravenous, As needed, Starting on Wed12/31/23 at 0819, Until Wed01/01/24 at 1319, Routine, On Unit - Preprocedure, [...] 10 mL, Intravenous, As needed, Starting on 12/31/23 at 0819, Until 01/01/24 at 1319, Routine, On Unit - Preprocedure, line care documented in this encounter Additional Health Concerns Assessment Noted Time A fall risk assessment has been complete d for the patient 12/30/2023 12:46 PM EST A Body Mass Index follow-up plan has been documented for the patient 01/01/2024 10:12 AM EST documented as of this encounter Care Teams It Corporate Recruiter Relationship Specialty Start Date End Date Drew Howell MD [address] [place] [address] PCP - General 12/23/23 Efrain Sarah MD [address] [place] [address] 12/02/23 Aris Lynch MD [address] [place] [address] [address] Surgeon Otolaryngology 12/02/23 documented as of this encounter
--- OUTSIDE RECORDS SUMMARY | 2024-10-04 19:05 | XMS_ITS | Encounter Summary ---
Author Organization [facility] Address [address] [place] [address] Care Team Providers Care Public Relations Analyst Name Role Phone Efrain Sarah MD Unavailable [phone] Aris Lynch MD Unavailable [phone] Pcp, Olga Primary Care Provider Unavailabl e Encounter Details Date Type Department Care Team (Latest Contact Info) Description 12/10/2023 Travel Social History Tobacco Use Types Packs/Day [...] documented as of this encounter Care Teams Public Relations Analyst Relationship Specialty Start Date End Date Pcp, No [address] [place] [address] PCP - General Family Medicine 12/08/23 12/22/23 Efrain Sarah MD [address] [place] [address] 12/02/23 Aris Lynch MD 800 [facility] Cancer [address] [address] Surgeon Otolaryngology 12/02/23 documented as of this encounter
--- OUTSIDE RECORDS SUMMARY | 2024-10-04 19:05 | XMS_ITS | Encounter Summary ---
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) Severe protein-calorie malnutrition (CMS/HCC) Parotid mass Procedures US Head Neck Soft Tissue Aris Lynch MD [address] [facility] Cancer [address] [address] Phone: tel: fax: Referral ID Status Reason Start Date Expiration Date Visits Re quested Visits Authorized [id number] Closed 12/23/2023 06/23/2025 1 1 Reason for Visit * Imaging (Routine) - Closed Specialty Diagnoses / Procedures Referred By Contac t Referred To Contact Radiology Diagnoses 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) Severe protein-calorie malnutrition (CMS/HCC) Parotid mass Procedures US Head Neck Soft Tissue Aris Lynch MD [address] [facility] Cancer [facility] [address] [place] [address] Phone: tel: fax: Referral ID Status Reason Start Date Expiration Date Visits Re quested Visits Authorized [id number] Closed 12/23/2023 06/23/2025 1 1 Encounter Details Date Type Department Care Team (Latest Contact Info) Description 12/23/2023 7:21 AM EST - 12/23/2023 11:59 PM EST Hospital Encounter [facility] [address] [place] [address] Parotid mass (Primary Dx); 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 34824 mL 2 12/09/2023 4 Eliquis 5 MG tablet Take 1 tablet (5 mg) by mouth 2 (two) times a day. 11/08/2023 4 potassium chloride CR (Klor-Con) 8 MEQ ER tablet Take 1 tablet (8 mEq) by mouth 1 (one) time each day. 11/08/2023 4 documented as of this encounter Miscellaneous Notes * Post-Procedure Note - Bnidu Mcfarlane MD - 12/23/2023 8:30 AM EST Radiology Brief Postprocedure Note Attending: Bindu Mcfarlane Medical Claims Examiner: Edis Technologist: Oneida Carter Pre-operative Diagnosis: Right parotid mass Post-operative Diagnosis: pending path review Technical/Surgical Procedures Used: US guided FNA Complications: None Estimated Blood Loss: none Medications As of 12/23/23 1032 lidocaine (Xylocaine) 1 % injection 20 mL (mL) Total volume: 3 mL Date/Time Rate/Dose/Volume Action 12/23/23 0850 3 mL Given See detailed result report with images in PACS. The patient tolerated the procedure well without incident or complication and is in stable condition. * Pre-Procedure Note - Bindu Mcfarlane MD - 12/23/2023 8:30 AM EST Radiology Preprocedure Note History Of Present Illness Vamsi Mallory is a 78 y.o. male presenting with right parotid mass. Past Medical History He has a past [...] (recurrent), Shortness of breath, and Sinus problem. Indication for procedure: The primary encounter diagnosis was Parotid mass. 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 Relevant review of systems: NA Relevant Labs: Lab Results Component Value Date CREATININE 0.96 12/08/2023 EGFR 88 12/08/2023 INR 1.0 12/08/2023 Directed physical examination: N/A Recent Imaging: Recent imaging study(ies) was/were reviewed.. Benefits, risks and alternatives of procedure have been discussed with the patient and/or their account service representative and informed consent was obtained. All questions answered and they agree to proceed. 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 Uncomplicated ultrasound-guided FNA of the dominant nodule within the right parotid gland. CRITICAL RESULT: No. COMMUNICATION: Per this written report. Drafted by Bindu Mcfarlane MD on 12/23/2023 10:32 AM Final report signed by Bindu Mcfarlane MD on 12/23/2023 10:34 AM Narrative 12/24/2023 10:40 AM EST CLINICAL INDICATION: Nodule within right parotid. Evaluate. TECHNIQUE: Ultrasound of the thyroid with ultrasound guided fine needle aspiration. COMPARISON: Outside CT 11/24/2023 FINDINGS: There is an approximately 2.9 cm heterogenous, hypoechoic mass within the superficial right parotid gland. It was decided to perform FNA of the dominant mass. FNA: After informed consent was obtained and time out performed, the patient's neck was cleaned and draped in the usual sterile fashion. Under direct ultrasound guidance and with 1% lidocaine for local anesthetic cover, five ??27-gauge passes were made into the dominant nodule within the right parotid. The samples were handed to the pathologists who were in attendance and adequate sampling was confirmed. There were no immediate post procedural complications. Procedure Note Bindu Mcfarlane MD - 12/24/2023 CLINICAL INDICATION: Nodule within right parotid. Evaluate. TECHNIQUE: Ultrasound of the thyroid with ultrasound guided fine needle aspiration. COMPARISON: Outside CT 11/24/2023 FINDINGS: There is an approximately 2.9 cm heterogenous, hypoechoic mass within thesuperficial right parotid gland. It was decided to perform FNA of thedominant mass. FNA: After informed consent was obtained and time out performed, thepatient's neck was cleaned and draped in the usual sterile fashion. Underdirect ultrasound guidance and with 1% lidocaine for local anestheticcover, five 27-gauge passes were made into the dominant nodule within theright parotid. The samples were handed to the pathologists who were inattendance and adequate sampling was confirmed. There were no immediate post procedural complications. IMPRESSION: 1. Uncomplicated ultrasound-guided FNA of the dominant nodule within theright parotid gland. CRITICAL RESULT: No. COMMUNICATION: Per this written report. Drafted by Bindu Mcfarlane MD on 12/23/2023 10:32 AM Final report signed by Bindu Mcfarlane MD on 12/23/2023 10:34 AM us Aris Lynch MD IMG US PROCEDURES Final Result * US Guided Fine Needle Aspiration (12/23/2023 9:13 AM EST) Anatomical Region Laterality Modality Ultrasound Impressions 12/23/2023 10:34 AM EST 1. Uncomplicated ultrasound-guided FNA of the dominant nodule within the right parotid gland. CRITICAL RESULT: No. COMMUNICATION: Per this written report. Drafted by Bindu Mcfarlane MD on 12/23/2023 10:32 AM Final report signed by Bindu Mcfarlane MD on 12/23/2023 10:34 AM Narrative 12/23/2023 10:34 AM EST CLINICAL INDICATION: Nodule within right parotid. Evaluate. TECHNIQUE: Ultrasound of the thyroid with ultrasound guided fine needle aspiration. COMPARISON: Outside CT 11/24/2023 FINDINGS: There is an approximately 2.9 cm heterogenous, hypoechoic mass within the superficial right parotid gland. It was decided to perform FNA of the dominant mass. FNA: After informed consent was obtained and time out performed, the patient's neck was cleaned and draped in the usual sterile fashion. Under direct ultrasound guidance and with 1% lidocaine for local anesthetic cover, five ??27-gauge passes were made into the dominant nodule within the right parotid. The samples were handed to the pathologists who were in attendance and adequate sampling was confirmed. There were no immediate post procedural complications. Procedure Note Bindu Mcfarlane MD - 12/24/2023 CLINICAL INDICATION: Nodule within right parotid. Evaluate. TECHNIQUE: Ultrasound of the thyroid with ultrasound guided fine needle aspiration. COMPARISON: Outside CT 11/24/2023 FINDINGS: There is an approximately 2.9 cm heterogenous, hypoechoic mass within thesuperficial right parotid gland. It was decided to perform FNA of thedominant mass. FNA: After informed consent was obtained and time out performed, thepatient's neck was cleaned and draped in the usual sterile fashion. Underdirect ultrasound guidance and with 1% lidocaine for local anestheticcover, five 27-gauge passes were made into the dominant nodule within theright parotid. The samples were handed to the pathologists who were inattendance and adequate sampling was confirmed. There were no immediate post procedural complications. IMPRESSION: 1. Uncomplicated ultrasound-guided FNA of the dominant nodule within theright parotid gland. CRITICAL RESULT: No. COMMUNICATION: Per this written report. Drafted by Bindu Mcfarlane MD on 12/23/2023 10:32 AM Final report signed by Bindu Mcfarlane MD on 12/23/2023 10:34 AM Aris Lynch MD [facility] US PROCEDURES Final Result * Fine needle aspiration (12/23/2023 8:38 AM EST) Case Report Cytology ?Case: [id number] ? Authorizing Provider: ??Bindu Mcfarlane MD ? Collected: ? 12/23/2023 0838 ? Ordering Location: ? [facility] ?Received: ?12/23/2023 0937 ? Pathologist: ? Angelia Leija MD ? Specimen: ?Parotid Gland, Fine Needle Aspiration, RIGHT PAROTID GLAND, ULTRASOUND GUIDED FINE ? NEEDLE ASPIRATION ? 12/24/2023 9:05 AM EST [facility] Final Diagnosis A. 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 Mcfarlane Number of sticks: 5 Immediate evaluation performed by: Dr. Leija/LT Evaluation episode # 1-4: Scantly cellular. Stroma and few salivary gland groups. Recommend additional pass The immediate evaluation in this case was performed via telecytology by the attending physician listed above. 12/24/2023 9:05 AM EST [facility] Clinical History right parotid mass 12/24/2023 9:05 AM [facility] Procedure Type US 12/24/2023 9:05 AM [facility] Size/Descripti on of Lesion 3cm 12/24/2023 9:05 AM [facility] Cancer History Yes 12/24/2023 9:05 AM EST [facility] Previous Cancer Primary Education Assistant and Neck Carcinoma, NOS 12/24/2023 9:05 AM [facility] Gross Description A. RIGHT PAROTID GLAND, ULTRASOUND GUIDED FINE NEEDLE ASPIRATION 5 ml's bloody needle rinse fluid processed as Thinprep for complete evaluation of sample. Received 5 diff quick slides and 5 pap slides. 12/24/2023 9:05 AM [facility] Note: A resident was involved in the service. I attest I examined the relevant preparations for the specimens and confirmed the diagnosis or interpretation. 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) Malignant neoplasm of supraglottis Severe protein-calorie malnutrition (CMS/HCC) Other severe protein-calorie malnutrition documented in this encounter Administered Medications Inactive Administered Medications - up to 3 most recent administrations Medication Order MAR Action Action Date Dose Rate Site lidocaine (Xylocaine) 1 % injection 20 mL 20 mL, Injection, Once, 1 dose, On Noreen 12/23/23 at 0815, Routine, Imaging Protocol OrdersIndications:Parotid mass Given 12/23/2023 8:50 AM EST 3 mL documented in this encounter Additional Health Concerns Assessment Noted Time A fall risk assessment has been complete d for the patient 12/08/2023 7:52 AM EST documented as of this encounter Care Teams Bodybuilder Relationship Specialty Start Date End Date Drew Howell MD [address] [place] [phone] PCP - General 12/23/23 Efrain Sarah MD [address] [place] [address] 12/02/23 Aris Lynch MD [address] [place] [phone] Surgeon Otolaryngology 12/02/23 documented as of this encounter
--- OUTSIDE RECORDS SUMMARY | 2024-10-04 19:05 | XMS_ITS | Encounter Summary ---
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); [...] Procedure Name Priority Date/Time Associated Diagnosis Comments ALDOSTERONE Routine 12/29/2023 12:08 PM EST 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) Parotid mass PLASMA RENIN ACTIVITY, LC/MS/MS (SO) Routine 12/29/2023 12:08 PM EST 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 This test has not been cleared or approved by the U.S. Food and Drug Administration. Test Performed by: [facility] [address] Hospitalist Medical Director: Manuel Oneill M.D. Ph.D.; CLIA# [id number] Normetanephrine, Free 2.0(H) <0.90 nmol/L 01/01/2024 2:45 PM EST [facility] Blood Venous blood specimen / Unknown Venipuncture / Unknown 12/29/2023 12:08 PM EST 12/29/2023 12:20 PM EST Aris Lycnh MD LAB BLOOD ORDERABLES Final Res ult [facility] ([facility]) * Plasma Renin Activity (LC/MS/MS) (12/29/2023 12:08 PM EST) PRA RESULT 2.07 0.25 - 5.82 ng/mL/h 01/03/2024 9:02 PM EST [facility] [place] [place] ([place] Comment: This test was developed and its analytical performance characteristics have been determined by [employer] [facility]. It has not been cleared or approved by FDA. This assay has been validated pursuant to the CLIA regulations and is used for clinical purposes. Blood Venous blood specimen / Unknown Venipuncture / Unknown 12/29/2023 12:08 PM EST 12/29/2023 12:20 PM EST Narrative [facility] [place] [place] ([place] - 01/03/2024 9:02 PM EST Performing Organization Information: ?Site ID: [id number] ?Name: [facility] ?Address: [address] [place] [address] ?Director: Odalys Zepeda MD, PhD us Aris Lynch MD LAB BLOOD ORDERABLES Final Res ult [facility] [place] [place] ([place] [address] [place], [place] [id number] * Aldosterone (12/29/2023 12:08 PM EST) Aldosterone 18.4 4.0 - 31.0 ng/dL 12/29/2023 2:15 PM EST [facility] Blood Venous blood specimen / Unknown Venipuncture / Unknown 12/29/2023 12:08 PM EST 12/29/2023 12:42 PM EST us Aris Lynch MD LAB BLOOD ORDERABLES Final Res ult [facility] [address] [place] [address] documented in this encounter Visit Diagnoses Diagnosis 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) Malignant neoplasm of supraglottis Parotid mass Swelling, mass, or lump in head and neck documented in this encounter Additional Health Concerns Assessment Noted Time A fall risk assessment has been complete d for the patient 12/29/2023 10:19 AM EST documented as of this encounter Care Teams Sustainability Manager Relationship Specialty Start Date End Date Drew Howell MD [address] [place] [address] PCP - General 12/23/23 Efrain Sarah MD [address] [place] [address] 12/02/23 Aris Lynch MD [address] [place] [address] Surgeon Otolaryngology 12/02/23 documented as of this encounter
--- OUTSIDE RECORDS SUMMARY | 2024-10-04 19:05 | XMS_ITS | Encounter Summary ---
Author Organization [facility] Address [address] [place] [address] Care Team Providers Care Surveyor Oil Well Directional Name Role Phone Efrain Sarah MD Unavailable [phone] Aris Lynch MD Unavailable Pcp, No Primary Care Provider Unavailabl e Reason for Visit * Auth/Cert (Routine) Specialty Diagnoses / Procedures Referred By Contac t Referred To Contact Diagnoses Dysphagia dysphagia Procedures OK EDG PERCUTANEOUS PLACEMENT GASTROSTOMY TUBE INSERTION, PEG TUBE Zafar Zuniga, DO [address] [address] Phone: tel: fax: [facility] [address] [place] [address] Phone: tel: Referral ID Status Reason Start Date Expiration Date Visits Re quested Visits Authorized [id number] 1 1 Encounter Details Date Type Department Care Team (Latest Contact Info) Description 12/13/2023 9:32 AM EST - 12/13/2023 5:47 PM [facility] Hospital Encounter [facility] [address] [place] [phone] Zafar Zuniga, DO [address] [phone] Discharge Disposition: Home or Self Care Social [...] Sign Reading Time Taken Comments Blood Pressure 109/61 12/13/2023 5:05 PM EST Pulse 71 12/13/2023 5:10 PM EST Temperature 36.6 ??C (97.9 ??F) 12/13/2023 4:45 PM ES T Respiratory Rate 20 12/13/2023 5:10 PM EST Oxygen Saturation 92% 12/13/2023 5:10 PM EST Inhaled Oxygen Concentration - - [...] 4 - ask for the thoracic surgeon parcel contractor. * Attachments The following attachments cannot be sent through Care Everywhere. * Feeding Tube Care, Gastrostomy: Flushing ([place]) * Feeding Tube, Discharge Instructions: Flushing Your ([place]) * PEG Tube Placement, Understanding ([place]) * Tube Feeding, Bolus ([place]) documented in this encounter Medications at Time [...] Tube route 5 (five) times a day. 40963 mL 2 12/09/2023 4 atorvastatin (Lipitor) 80 [...] 15 12/13/23 1654 SpO2 100 % 12/13/23 1654 Vitals shown include unvalidated device data. Anesthesia [...] from PACU * Op Note - Zafar Zuniga DO - 12/13/2023 3:27 PM EST Operative Note Date: 12/13/23 Location: [facility] Name: Vamsi Mallory, : 1945, Diagnoses: Pre-op Diagnosis Dysphagia. Squamous cell carcinoma of the larynx Post-op Diagnosis Dysphagia, Squamous cell carcinoma of the larynx Procedure(s): EGD with PEG tube insertion 20 Yoruba Attending Surgeon(s): * Zafar Zuniga - Primary Cadastral Engineer(s): * William Laboy MD - Resident - [...] UNSOLICITED RESULTS Routine 12/13/2023 4:03 PM EST [place] EDG PERCUTANEOUS PLACEMENT GASTROSTOMY TUBE 12/13/2023 2:57 PM EST Dysphagia POCT GLUCOSE METER UNSOLICITED RESULTS Routine 12/13/2023 12:45 PM EST documented in this encounter Results * POCT glucose meter (12/13/2023 4:03 PM EST) Pathologist [facility] POCT Glucose 95 74 - 99 mg/dL 12/13/2023 4:04 PM EST [facility] Comment:Accuracy of a glucos e result [...] for testing. Comment 12/13/2023 4:04 PM EST [facility] Chemical Unit Operator ID Britney Ibanez 12/13/2023 4:[address] [facility] Device ID [id number] 12/13/2023 4:[address] [facility] Specimen Type POC Capillary 12/13/2023 4:[address] [facility] Blood Capillary blood specimen / Unknown 12/13/2023 4:03 PM EST 12/13/2023 4:04 PM EST Zafar Zuniga DO LAB POINT OF CARE TE ST DOCKED DEVICE UNSOLICITED RESULTS Final Result Performing Organization Address City/State/[facility] de Phone Number [facility]ARE [facility] [address] [place] [phone] * POCT glucose meter (12/13/2023 12:45 PM EST) [facility] POCT Glucose 90 74 - 99 mg/dL 12/13/2023 1:02 PM EST [facility] Comment:Accuracy of a glucos e result [...] for testing. Comment 12/13/2023 1:02 PM EST [facility] Chemical Unit Operator ID Ana Liao 1:02 PM EST [facility] Device ID [id number] 12/13/2023 1:02 PM EST [facility] Specimen Type POC Venous 12/13/2023 1:02 PM EST [facility] Blood Venous blood specimen / Unknown 12/13/2023 12:45 PM EST 12/13/2023 1:02 PM EST us Zafar Zuniga DO LAB POINT OF CARE TE ST DOCKED DEVICE UNSOLICITED RESULTS Final Result [facility] [address] [place] [address] documented in this encounter Visit Diagnoses Not [...] 12:59 PM EST 20 mL/hr 20 mL/hr naloxone (Narcan) injection 0.4 mg 0.4 mg, [...] 1550 (Given - Provid er: Zafar Zuniga, DO - Comment: from peg kit) naloxone (Narcan) [...] documented as of this encounter Care Teams Surveyor Oil Well Directional Relationship Specialty Start Date End Date Pcp, No [address] [place] [address] PCP - General Family Medicine 12/08/23 12/22/23 Efrain Sarah MD [address] [place] [address] 12/02/23 Aris Lynch MD [address] [place] [phone] Surgeon Otolaryngology 12/02/23 documented as of this encounter
--- OUTSIDE RECORDS SUMMARY | 2024-10-04 19:05 | XMS_ITS | Encounter Summary ---
Author Organization [facility] Address [address] [place] [address] Care Team Providers Care Movie Extra Name Role Phone Efrain Sarah MD Unavailable [phone] Aris Lynch MD Unavailable [phone] Drew Howell MD Primary Care Provider [phone] Encounter Details Date Type Department Care Team (Latest Contact Info) Description 12/23/2023 Travel Social History Tobacco Use Types Packs/Day [...] documented as of this encounter Care Teams Movie Extra Relationship Specialty Start Date End Date Drew Howell MD [address] [place] [phone] PCP - General 12/23/23 Efrain Sarah MD [address] [place] [address] 12/02/23 Aris Lynch MD [address] [place] [address] [place] [phone] Surgeon Otolaryngology 12/02/23 documented as of this encounter
--- OUTSIDE RECORDS SUMMARY | 2024-10-04 19:05 | XMS_ITS | Encounter Summary ---
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) Zafar Zuniga, DO [address] [place] [address] Phone: tel: fax: Referral ID Status Reason Start Date Expiration Date V isits Requested Visits Authorized [id number] Closed Specialty Services Required 12/30/2023 06/30/2025 1 1 Encounter Details Date Type Department Care Team (Late st Contact Info) Description 12/30/2023 1:30 PM EST Office Visit [facility] [address] [place] [address] Jayashree Barahona CF-REGRINDER Dysphonia (Primary Dx); SCC (squamous cell carcinoma) of [...] encounter Miscellaneous Notes * Progress Notes - [place] Jayashree, ISIDRA-REGRINDER - 12/30/2023 1:30 PM EST [facility] Laryngoscopy/Voice Evaluation Referring Provider: Dr.Joseph Ortega Diagnosis: Dysphonia (R49.0) Services provided: Evaluation voice and resonance(54940) and Flexible fiberoptic laryngoscopy(71956) Date of Service: 12/30/2023 Chief Complaint: Vamsi Mallory presents to [facility] for a comprehensive voice and upper airway evaluation in conjunction with Dr.Joseph Ortega. He was accompanied by his for today's visit. Relevant history: Vamsi Mallory is a 78 y.o. male known to [facility] for a [id number] supraglottic SCCa. Per chart review, Mr. Mallory first began to experience throat pain, dysphagia/odynophagia and dysphonia along with fatigue and poor oral intake around November of 2023. He presented to an OSH, where he was found to have a laryngeal mass. He subsequently underwent a biopsy on 12/01/23, which revealed well to moderately differentiated SCCa. Mr. Mallory was referred to Dr. Lynch [facility] for further management. A PET scan performed on 12/22/23 revealed hypermetabolic mass in the supraglottic larynx, asymmetric to the left as well as hypermetabolic soft tissue nodules in the bilateral parotid glands... [and a] hypermetabolic lymph node....to the right angle of the mandible. Further, the scan revealed lung nodules in the RUL. 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 Mr. Mallory's medical history is significant for a CABG in 2009, an ID, defibrillator placement, DM, and COPD. Mr. Mallory is scheduled for a tracheostomy and bronchoscopy/EBUS on 12/31/23. Current Level of Function Pain: Vamis Mallory endorses significant right neck and bilateral ear pain. Voice: Vamsi Mallory denies voice changes or complaints. However, he does note that his voice becomes progressively weaker the more he uses it. Swallowing: Vamsi Mallory endorses coughing with food. He had a 124lb unintentional weight loss before placement of a PEG. However, his weight has now stabilized. He denies any recent aspiration-type pneumonias. Respiration: Vamsi Mallory denies shortness of breath at rest, when exercising, or when supine. However, he does endorse increased fatigue with movement. Prior Level of Function: Dysphagia, dysphonia which began in November 2023 Barriers to Progress Comprehension: Functional Level of Motivation: Functional Pain: Vamsi Mallory endorses significant right neck and bilateral ear pain. 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 For longer than 20 years, he smoked 3-3.5 PPD. However, he currently smokes 1PPD. ETOH/Drug Use: Per chart review, he does not drink. Resonance: [place] sac resonance Procedure: Informed consent, which included potential side effects, risks, and benefits of the procedure was obtained. After administration of neosynephrine and 4% lidocaine, an adult distal chip was atraumatically inserted into the nares via inferior turbinate. Under halogen light, an exophytic mass encompassing the left ventricular fold and aryepiglottic fold was appreciated. This mass attenuated the patency of the airway. This mass obscured view of the entire left true vocal fold and the majority of the right true vocal fold, as well as the left lateralchannel. Thus, endoscopy was unable to rule out extension into the left lateral channel, left arytenoid complex, left true vocal fold, post-cricoid area, left pyriform sinus, or subglottis. The mass did not appear to include the epiglottis or the posterior pharyngeal wall. Limited visualization of the right true vocal fold did not reveal any apparent masses. Right arytenoid mobility was intact. Ho wever, the left arytenoid mobility was unable to be fully assessed secondary to the supraglottic mass. An area of apparent ulceration vs. debris was noted on the mass, proximal to the left lateral pharyngeal wall. Fullness was noted proximal to the right lingual tonsil and the left lingual tonsil appeared hypertrophic. Discussion/Summary:: Obtained images were reviewed with Dr.Joseph Ortega, Vamsi Mallory, and his . Impressions: Dysphonia secondary to endolaryngeal tissue changes Dyspnea secondary to a supraglottic mass An exophytic mass encompassing the left ventricular fold and aryepiglottic fold was appreciated. Endoscopy was unable to rule out extension into the left lateral channel, left arytenoid complex, lefttrue vocal fold, post-cricoid area, left pyriform sinus, or subglottis. Right arytenoid mobility was intact. However, the left arytenoid mobility was unable to be fully assessed secondary to the supraglottic mass. Recommendations: Return to ENT clinic at prescribed intervals, or sooner if issues arise Education: Vamsi Mallory was educated regarding assessment findings and recommendations. Functional understanding of the information presented was observed and they agreed with the prescribed planof care. 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) Malignant neoplasm of supraglottis documented in this encounter Additional Health Concerns Assessment Noted Time A fall risk assessment has been complete d for the patient 12/30/2023 12:46 PM EST A Body Mass Index follow-up plan has been documented for the patient 12/31/2023 11:21 AM EST documented as of this encounter Care Teams Forestry Laborer Relationship Specialty Start Date End Date Drew Howell MD [address] [place] [address] PCP - General 12/23/23 Efrain Sarah MD [address] [place] [address] 12/02/23 Aris Lynch MD [address] [place] [phone] Surgeon Otolaryngology 12/02/23 documented as of this encounter
--- OUTSIDE RECORDS SUMMARY | 2024-10-04 19:05 | XMS_ITS | Encounter Summary ---
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] Procedures CO BRONCHOSCOPY,COMPUTER ASSIST/IMAGE-GUIDED NAVIGATION CO BRONCHOSCOPY,DIAGNOSTIC W BRUSH CO BRONCHOSCOPY,DIAGNOSTIC W LAVAGE CO BRONCHOSCOPY,BIOPSY CO BRONCHOSCOPY,TRANSBRONCH BIOPSY CO BRONCHOSCOPY,TRANSBRON ASPIR BX CO [facility] EB[facility] GUIDED SAMPL 1/2 NODE STATION/STRUX CO [facility] EB[facility] GUIDED SAMPL 3/> NODE STATION/STRUX CREATION, TRACHEOSTOMY ION ROBOT BRONCHOSCOPY, NAVIGATIONAL Aris Lynch MD [address] [facility] [address] [place] [address] Phone: tel: fax: [facility] [address] [place] [address] Phone: tel: Referral ID Status Reason Start Date Expiration Date Visits Re quested Visits Authorized [id number] 1 1 Encounter Details Date Type Department Care Team (Late st Contact Info) Description 12/31/2023 1:30 PM EST Anesthesia Event [facility] [address] [place] [address] Kasi Armando DO [address] [place] [address] Bigg Carson MD [address] [place] [id number] Anesthesia Record Procedure Summary Procedure Name Responsible Anesthesiologist Anesthesia Start Time Anesthesia Stop Time LARYNGOSCOPY, DIRECT, WITH BIOPSY, VOCAL CORD STRIPPING (Bilateral) Kasi Armando DO 12/31/23 1330 12/31/23 1513 Events Date Time Event Comment 12/31/2023 1327 In Room 1330 An Start Waited for ENT surgeon and resident to be in the room before induction. 1330 An Start Data 1339 An Induction The patient was reevaluated immediately before moderate or deep sedation use and before anesthesia induction. 1344 An Intubation 1348 Proc Start 1348 Anesthesia Ready 1406 Antonio Supraglottic tu mor debulked by ENT surgeon so glottis could accommodate 8.0 ETT 1409 Antonio FAMILY AND CONSUMER SCIENCES PROFESSOR removed by surgeon 1418 an hugh now 1437 Proc Fin 1448 An Extubation 1459 an stop data 1500 Out of Room 1513 Handoff to Receiving I compl eted my handoff to the receiving clinician during which we: 1. Identified the patient 2. Identified the responsible provider 3. Reviewed the pertinent medical history 4. Discussed the surgical course 5. Reviewed intra-op anesthesia management and issues during anesthesia 6. Set expectations for post-procedure period 7. Allowed opportunity for questions and acknowledgement of understanding. 1513 An Stop Meds Name Total fentaNYL (Sublimaze) injection 50 mcg/mL 50 mcg lidocaine PF (Xylocaine-MPF) 2% 80 mg propofol (Diprivan) injection 10 mg/mL 8 0 mg rocuronium (ZeMuron) injection 10 mg/mL 40 mg dexamethasone (Decadron) injection 4 mg/ mL 8 mg phenylephrine (Wilbur-Synephrine) prefilled syringe 1 mg/10 mL 300 mcg ondansetron (Zofran) injection 2 mg/mL 4 mg sugammadex (Bridion) injection 100 mg/mL 400 mg clindamycin (Cleocin) 900 mg in 50 mL (p remix) 900 mg EPINEPHrine in 0.9% NaCl infusion 32 mcg /mL 30 mcg propofol (Diprivan) infusion 10 mg/mL 30 9.18 mg phenylephrine in 0.9% NaCl infusion 100 mcg/mL 1.48 mg lactated Ringer's infusion 1,000 mL * Agents No agents on file. * Blood No blood administrations on file. Lines, Drains, and Airways Type Details Placement Removal Wound 12/13/23; 1521; Yes; Incision; Abdomen; Left, Upper 12/13/23 1521 by Edna Frank RN Wound 12/31/23; 1348; N; Y es; Incision (DL biopsy); Throat 12/31/23 1348 by Shelli Collier RN Peripheral IV Placement Date: 11/24; Placement Time: 0142 (created via procedure documentation); Catheter Size: 20 G; Orientation: Left; Location: Saphenous; Local Anesth: None; Technique: Anatomical landmarks; Insertion Attempts: 1; Removal Date: 12/31/23; Removal Time: 1900; Removal Reason: Other (Comment) (not present on assessment) 12/31/23 0142 by Estee Velasco CRNA, DNP 12/31/23 1900 by Judith Pennington RN Peripheral IV Placement Date: 11/24; Placement Time: 0849; Catheter Size: 18 G; Orientation: Anterior, Distal, Right, Upper; Location: Arm; Site Prep: Chlorhexidine ; Local Anesth: None; Technique: Anatomical landmarks; Insertion Attempts: 1; Patient Tolerance: Tolerated well; Removal Date: 01/02/24; Removal Time: 1119 12/31/23 0849 by Jazmyn Pineda RN 01/02/24 1119 by Discharge Provider, Automatic ETT Placement Date: 11/24; Placement Time: 1342 (created via procedure documentation); Mask Ventilation: 2; Technique: Video laryngoscopy; Type: ETT - single; Single Lumen Tube Size: 7.5 mm; Cuffed: Yes; Laryngoscope: (low pro 3); Blade Size: 3; Location: Oral; Insertion Attempts: 1; Placement Verification: Auscultation, Capnometry; Airway Comments: Large supraglottic tumor obstructing view. Remaining opening was very small. ENT surgeon passed a 5.0 FAMILY AND CONSUMER SCIENCES PROFESSOR because INSTANT POTATO PROCESSING SUPERVISOR met resistance when trying to pass ETT. Atraumatic. No change to dentition. ; Placed by: ROSY; Removal Date: 12/31/23; Removal Time: 1448 12/31/23 1342 by Estee Velasco CRNA, DNP 12/31/23 1448 by Estee Velasco CRNA, DNP documented in this encounter Social History Tobacco [...] Miscellaneous Notes * Anesthesia Postprocedure Evaluation - Estee Velasco CRNA, DNP - 12/31/2023 3:13 PM EST Patient: Vamsi Mallory Anesthesia Type: general Vitals Value Taken Time BP 106/60 12/31/23 1510 Temp 36.5 ??C (97.7 ??F) 12/31/23 1505 Pulse 70 12/31/23 1512 Resp 21 12/31/23 1512 SpO2 100 % 12/31/23 1512 Vitals shown include unvalidated device data. Anesthesia Post Evaluation Patient location during evaluation: PACU Patient participation: complete - patient cannot participate Level of consciousness: sedated Pain management: adequate (pain score 0-3) Airway patency: natural airway Cardiovascular status: acceptable and hemodynamically stable Respiratory status: spontaneous ventilation, nonlabored ventilation and face mask Hydration status: acceptable Comments: Patient arrived in PACU on 0.5 mcg/kg/min phenylephrine with stable BP. MEASUREMENT OPERATOR aware. PACU resident notified. No notable events documented. * Anesthesia Procedure Notes - Estee Velasco CRNA, DNP - 12/31/2023 2:32 PM ESTAssociated Order(s): Peripheral IV Peripheral IV Date/Time: 12/31/2023 1:42 AM Placement Needle size: 20 G Location: saphenous Local anesthetic: none Site prep: alcohol Technique: anatomical landmarks Attempts: 1 * Anesthesia Procedure Notes - Estee Velasco CRNA, DNP - 12/31/2023 2:02 PM ESTAssociated Order(s): Airway Airway Date/Time: 12/31/2023 1:42 PM Urgency: elective Difficult airway General Information and Staff Patient location during procedure: OR INSTANT POTATO PROCESSING SUPERVISOR: Estee Velasco CRNA, DNP Performed: ROSY Indications and Patient Condition Indications for airway management: anesthesia Spontaneous Ventilation: absent Preoxygenated: yes Patient position: sniffing Mask difficulty assessment: 2 - vent by mask + OA or adjuvant +/- NMBA Final Airway Details Final airway type: endotracheal airway Successful airway: ETT Cuffed: yes Successful intubation technique: video laryngoscopy Facilitating devices/methods: intubating stylet Endotracheal tube insertion site: oral Blade: other (low pro 3) Blade size: #3 ETT size (mm): 7.5 Placement verified by: chest auscultation and capnometry Measured from: teeth Number of attempts at approach: 1 Additional Comments Large supraglottic tumor obstructing view. Remaining opening was very small. ENT surgeon passed a 5.0 FAMILY AND CONSUMER SCIENCES PROFESSOR because INSTANT POTATO PROCESSING SUPERVISOR met resistance when trying to pass ETT. Atraumatic. No change to dentition. * Anesthesia Preprocedure Evaluation - Kasi Armando DO - 12/31/2023 12:02 PM EST Patient: Vamsi Mallory Procedure Information Date/Time: 12/31/23 0930 Surgeons: Art Gillette MD; Aris Lynch MD Procedures: CREATION, TRACHEOSTOMY (Bilateral) ION ROBOT BRONCHOSCOPY, NAVIGATIONAL LARYNGECTOMY CREATION, FLAP, MYOCUTANEOUS, PECTORALIS FLAP PROCEDURE, MUSCLE, MYOCUTANEOUS, OR FASCIOCUTANEOUS, HEAD AND NECK REGION LYMPHADENECTOMY RIGID ESOPHAGOSCOPY, WITH DILATION - Boo Dilators Location: [facility] Patient with subglottic malignant neoplasm. Has been successfully intubated with video laryngoscopymultiple times over the past 2 months. Patient, however, endorses increased size of tumor since last procedure earlier this month. After discussing with ENT, plan on attempting video laryngoscopy again. Patient was seen in clinic yesterday with stable exam relative to any concern regarding airway obstruction of airway for intubation. Surgeon will be in room on induction with rigid scope in the event video laryngoscopy unsuccessful or difficult Past Medical History: Diagnosis Date Allergies Arthritis [...] of pneumonia Shortness of breath Sinus problem Relevant Problems No relevant active problems Anesthesia Evaluation Clinical information reviewed: Allergies NPO Status Date of Last Liquid: 12/30/23 Time of Last Liquid: 1800 Date of Last Solid: 12/30/23 Time of Last Solid: 1800 Last Intake Type: Formula Time of Last Void: 735 Physical Exam Airway Mallampati: I Mouth opening: normal TM distance: >3 FB Neck ROM: full Cardiovascular - normal exam Dental (+) edentulous Pulmonary - normal exam Neurological Skin Musculoskeletal Extremities Anesthesia Plan ASA 4 Plan was reviewed with: ROSY Anesthesia technique(s) discussed with the patient/family: general Anesthesia plan agreed upon was: general Anesthetic plan and risks discussed with patient. Use of blood products discussed with patient who. Additional Equipment Requests documented in this encounter Plan of Treatment Not on file documented as of this encounter Procedures Procedure Name Priority Date/Time Associated Diagnosis Comments PB ANESTHESIA PLACEHOLDER Routine 12/31/2023 1:42 PM EST CO AN ELECTIVE ENDOTRACHEAL AIRWAY Routine 12/31/2023 1:42 PM EST ANESTHESIA PERIPHERAL IV PLACEMENT Routine 12/31/2023 1:42 AM EST documented in this encounter Results * CO AN ELECTIVE ENDOTRACHEAL AIRWAY, PB ANESTHESIA PLACEHOLDER (12/31/2023 1:42 PM EST) Narrative Estee Velasco CRNA, DNP - 12/31/2023 1:42 PM EST Estee Velasco CRNA, DNP ? 12/31/2023 ??2:06 PM Airway Date/Time: 12/31/2023 1:42 PM Urgency: elective Difficult airway General Information and Staff Patient location during procedure: OR INSTANT POTATO PROCESSING SUPERVISOR: Estee Velasco CRNA, DNP Performed: ROSY Indications and Patient Condition Indications for airway management: anesthesia Spontaneous Ventilation: absent Preoxygenated: yes Patient position: sniffing Mask difficulty assessment: 2 - vent by mask + OA or adjuvant +/- NMBA Final Airway Details Final airway type: endotracheal airway Successful airway: ETT Cuffed: yes Successful intubation technique: video laryngoscopy Facilitating devices/methods: intubating stylet Endotracheal tube insertion site: oral Blade: other (low pro 3) Blade size: #3 ETT size (mm): 7.5 Placement verified by: chest auscultation and capnometry Measured from: teeth Number of attempts at approach: 1 Additional Comments Large supraglottic tumor obstructing view. Remaining opening was very small. ENT surgeon passed a 5.0 FAMILY AND CONSUMER SCIENCES PROFESSOR because INSTANT POTATO PROCESSING SUPERVISOR met resistance when trying to pass ETT. Atraumatic. No change to dentition. Kasi Armando DO ANESTHESIA ORDERABLES Final Res ult * Peripheral IV (12/31/2023 1:42 AM EST) Narrative Estee Velasco CRNA, DNP - 12/31/2023 1:42 AM EST Estee Velasco CRNA, DNP ? 12/31/2023 ??2:32 PM Peripheral IV Date/Time: 12/31/2023 1:42 AM Placement Needle size: 20 G Location: saphenous Local anesthetic: none Site prep: alcohol Technique: anatomical landmarks Attempts: 1 Kasi Armando DO ANESTHESIA ORDERABLES Final Res ult documented in this encounter Visit Diagnoses Not on filedocumented in this encounter Administered Medications Inactive Administered Medications - up to 3 most recent administrations Medication Order MAR Action Action Date Dose Rate Site clindamycin (Cleocin) IV solution Intravenous, As needed, Starting on Wed12/31/23 at 1355, Until Wed12/31/23 at 1513, Routine, Anesthesia Intraprocedure New Bag 12/31/2023 1:55 PM EST 900 mg dexamethasone (Decadron) injection Intravenous, As needed, Starting on Wed12/31/23 at 1346, Until Wed12/31/23 at 1513, Routine, Anesthesia Intraprocedure Given 12/31/2023 1:46 PM EST 8 mg EPINEPHrine infusion 8 mg in NS 250 mL (0.032 mg/mL) (compounding pharmacy premix) Intravenous, As needed, Starting on Wed12/31/23 at 1418, Until Wed12/31/23 at 1513, Routine, Anesthesia Intraprocedure Given 12/31/2023 2:27 PM EST 20 mcg Given 12/31/2023 2:18 PM EST 10 mcg fentaNYL (Sublimaze) injection Intravenous, As needed, Starting on Wed12/31/23 at 1339, Until Wed12/31/23 at 1513, Routine, Anesthesia Intraprocedure Given 12/31/2023 1:39 PM EST 50 mcg lactated Ringer's infusion Intravenous, Continuous PRN, Starting on Wed12/31/23 at 1330, Until Wed12/31/23 at 1513, Routine New Bag 12/31/2023 1:30 PM EST lidocaine PF (Xylocaine) 2 % injection Intravenous, As needed, Starting on Wed12/31/23 at 1339, Until Wed12/31/23 at 1513, Routine, Anesthesia Intraprocedure Given 12/31/2023 1:39 PM EST 80 mg ondansetron (Zofran) injection Intravenous, As needed, Starting on Wed12/31/23 at 1443, Until Wed12/31/23 at 1513, Routine, Anesthesia Intraprocedure Given 12/31/2023 2:43 PM EST 4 mg phenylephrine 25 mg in NS 250 mL (0.1 mg/mL) infusion (compounding pharmacy premix) Intravenous, Continuous PRN, Starting on Wed12/31/23 at 1429, Until Wed12/31/23 at 1513, Routine, Anesthesia Intraprocedure Rate/Dose Change 12/31/2023 3:41 PM EST 0.1 mcg/kg/min 4.47 mL/hr Rate/Dose Change 12/31/2023 3:15 PM EST 0.3 mcg/kg/min 13. 41 mL/hr Continued from OR 12/31/2023 3:05 PM EST 0.5 mcg/kg/min 22 .4 mL/hr phenylephrine in NS (Wilbur-Synephrine) 100 mcg/mL prefilled syringe Intravenous, As needed, Starting on Wed12/31/23 at 1415, Until Wed12/31/23 at 1513, Routine, Anesthesia Intraprocedure Given 12/31/2023 2:58 PM EST 200 mcg Given 12/31/2023 2:15 PM EST 100 mcg propofol (Diprivan) infusion 10 mg/mL Intravenous, Continuous PRN, Starting on Wed12/31/23 at 1345, Until Wed12/31/23 at 1513, Routine Rate/Dose Change 12/31/2023 2:18 PM EST 50 mcg/kg/min 22.35 mL/hr New Bag 12/31/2023 1:45 PM EST 100 mcg/kg/min 44.7 mL/h r propofol (Diprivan) injection Intravenous, As needed, Starting on Wed12/31/23 at 1346, Until Wed12/31/23 at 1513, Routine, Anesthesia Intraprocedure Given 12/31/2023 1:46 PM EST 80 mg rocuronium (ZeMuron) injection Intravenous, As needed, Starting on Wed12/31/23 at 1339, Until Wed12/31/23 at 1513, Routine, Anesthesia Intraprocedure Given 12/31/2023 1:39 PM EST 40 mg sugammadex (Bridion) 200 MG/2ML injection Intravenous, As needed, Starting on Wed12/31/23 at 1443, Until Wed12/31/23 at 1513, Routine, Anesthesia Intraprocedure Given 12/31/2023 2:39 PM EST 400 mg documented in this encounter Additional Health Concerns Assessment Noted Time A fall risk assessment has been complete d for the patient 12/30/2023 12:46 PM EST A Body Mass Index follow-up plan has been documented for the patient 01/01/2024 10:12 AM EST documented as of this encounter Care Teams Administration Physician Relationship Specialty Start Date End Date Drew Howell MD [address] [place] [address] PCP - General 12/23/23 Efrain Sarah MD [address] [place] [address] 12/02/23 Aris Lynch MD [address] [place] [phone] Surgeon Otolaryngology 12/02/23 documented as of this encounter
--- OUTSIDE RECORDS SUMMARY | 2024-10-04 19:05 | XMS_ITS | Encounter Summary ---
Author Organization [facility] Address [address] [place], [place] [address] Care Team Providers Care Care Associate Name Role Phone Efrain Sarah MD Unavailable [phone] Aris Lynch MD Unavailable [phone] Pcp, No Primary Care Provider Unavailabl e Encounter Details Date Type Department Care Team (Late st Contact Info) Description 12/21/2023 Telephone Pav CC Head, Neck & Respiratory [address] [facility], [address]nd [place] [address] Aris Lynch MD 800 [facility] [address] [place] [address] Social History Tobacco Use Types Packs/Day Years [...] encounter Miscellaneous Notes * Telephone Encounter - Shabnam Daigle Suad - 12/21/2023 1:20 PM EST Patient Phone Message Reason for Call: Thu from [facility] called asking about authorizations for PET scan tomorrow, she only has one, if they don't have both they will have to cancel appt. Please call her to let her know. Thanks Best contact number and optimal time of day to reach caller: Thu [phone] Note: Please do not reply to this [...] documented as of this encounter Care Teams Care Associate Relationship Specialty Start Date End Date Pcp, No 800 [place] [address] PCP - General Family Medicine 12/08/23 12/22/23 Efrain Sarah MD [address] [place] [address] 12/02/23 Aris Lynch MD 800 [facility] Cancer [address] [address] Surgeon Otolaryngology 12/02/23 documented as of this encounter
--- OUTSIDE RECORDS SUMMARY | 2024-10-04 19:05 | XMS_ITS | Encounter Summary ---
Author Organization [facility] Address [address] [place] [address] Care Team Providers Care Critical Care Specialist Name Role Phone Efrain Sarah MD Unavailable [phone] Aris Lynch MD Unavailable [phone] Pcp, No Primary Care Provider Unavailabl e Drew Howell MD Primary Care Provider [phone] Encounter Details Date Type Department Care Team (Late st Contact Info) Description 12/22/2023 Orders Only External Location 800 [place] [address] Aris Lynch MD 800 [facility] [address] [place] [address] Social History Tobacco Use Types [...] Procedure Name Priority Date/Time Associated Diagnosis Comments PET OUTSIDE IMAGES 12/22/2023 10:39 AM EST documented in this encounter Results * PET OUTSIDE IMAGES (12/22/2023 10:39 AM EST) Anatomical Region Laterality Modality Nuclear Medicine 12/22/2023 10:3 9 AM EST us Aris Lynch MD IMG NM PROCEDURES Final Result documented in this encounter Visit Diagnoses Not on filedocumented in this encounter Additional Health Concerns Assessment Noted Time A fall risk assessment has been complete d for the patient 12/08/2023 7:52 AM EST documented as of this encounter Care Teams Critical Care Specialist Relationship Specialty Start Date End Date Pcp, No 800 [place] [address] PCP - General Family Medicine 12/08/23 12/22/23 Drew Howell MD [address] [place] [address] PCP - General 12/23/23 Efrain Sarah MD [address] [place] [address] 12/02/23 Aris Lynch MD 800 [facility] Cancer [address] [address] Surgeon Otolaryngology 12/02/23 documented as of this encounter
--- OUTSIDE RECORDS SUMMARY | 2024-10-04 19:05 | XMS_ITS | Encounter Summary ---
Author Organization [facility] Address [address] [place] [address] Care Team Providers Care Paramedic Name Role Phone Efrain Sarah MD Unavailable [phone] Aris Lynch MD Unavailable [phone] Drew Howell MD Primary Care Provider [phone] Reason for Visit * Reason Comments Nutrition Counseling Encounter Details Date Type Department Care Team ([facility] Contact Info) Description 12/30/2023 Nutrition Pav CC Head, Neck & Respiratory 800 [facility], [address]nd [place] [address] James Pham [facility] 800 [place] [address] Social History Tobacco Use Types Packs/Day Years [...] as of this encounter Miscellaneous Notes * Clinician Note - James Pham, RD - 12/30/2023 9:17 AM EST Nutrition Follow Up Note: Referral Source: [facility] Pt prev referred to Jerry for TF supplies with recs for Isosource 1.5 x 5 cartons/day. He states that he is doing well on this regimen, denies any issues with infusions. He is eating some soft foods by mouth, infusing 2-4 cartons/day and has been able to maintain his wt. All questions answered atthis time. RD contact information was provided and will continue to remain available PRN. Anthropometrics: Wt Readings from Last 5 Encounters: 12/29/23 74.4 kg (164 lb 0.4 oz) 12/13/23 74 kg (163 lb 2.3 oz) 12/08/23 74 kg (163 lb 2.3 oz) 06/20/14 110 kg (242 lb) 12/20/13 114 kg (250 lb 15.9 oz) Ht Readings from Last 1 Encounters: 12/29/23 1.854 m (6' 0.99 ) BMI Readings from Last 1 Encounters: 12/29/23 21.64 kg/m?? documented in this encounter Plan of Treatment [...] documented as of this encounter Care Teams Paramedic Relationship Specialty Start Date End Date Drew Howell MD [address] [place] [address] PCP - General 12/23/23 Efrain Sarah MD [address] [facility] [place] [address] 12/02/23 Aris Lynch MD [address] [place] [address] [address] Surgeon Otolaryngology 12/02/23 documented as of this encounter
--- OUTSIDE RECORDS SUMMARY | 2024-10-04 19:06 | XMS_ITS ---
Laboratory report Created on: September 02, 2024 ANN MARIE FELIPE : 1945 Sex: Male Author Name CHLOÉ VAZQUEZ Unknown PROBLEMS Problems List Code Description E11.9 E78.2 RESULTS Laboratory Orders Date Order Code Test 2023-07-01 027334 CBC/DIFF AMBIGUO US DEFAULT 2023-07-01 [id number] COMP. METABOLIC PANEL (14) 2023-07-01 633637 LIPID PANEL Laboratory Results Date LOINC Test Value Unit Reference Range Interpre tation 2023-07-01 6690-2 WBC 9.3 X10E3/UL 3.4-10.8 2023-07-01 789-8 RBC 4.41 X10E6/UL 4.14-5.80 2023-07-01 718-7 HEMOGLOBIN 13.1 G/DL 13.0-17.7 2023-07-01 4544-3 HEMATOCRIT 38.5 % 37.5-51.0 2023-07-01 787-2 MCV 87 FL 79-97 2023-07-01 785-6 MCH 29.7 PG 26.6-33.0 2023-07-01 786-4 MCHC 34 G/DL 31.5-35.7 2023-07-01 788-0 RDW 13.3 % 11.6-15.4 2023-07-01 777-3 PLATELETS 202 X10E3/UL 474-726 5613-08-31 770-8 NEUTROPHILS 63 % 2023-07-01 736-9 LYMPHS 29 % 2023-07-01 5905-5 MONOCYTES 6 % 2023-07-01 713-8 EOS 2 % 2023-07-01 706-2 BASOS 0 % 2023-07-01 751-8 NEUTROPHILS (ABSOLUTE) 5.8 X10E3/UL 1.4-7.0 2023-07-01 731-0 LYMPHS (ABSOLUTE) 2.7 X10E3/UL 0.7-3.1 2023-07-01 742-7 MONOCYTES(ABSOLUTE) .6 X10E3/UL 0.1-0.9 2023-07-01 711-2 EOS (ABSOLUTE) .1 X10E3/UL 0.0-0.4 2023-07-01 704-7 BASO (ABSOLUTE) 0 X10E3/UL 0.0-0.2 2023-07-01 97503-9 IMMATURE GRANULOCYTES 0 % 2023-07-01 75164-4 IMMATURE GRANS (ABS) 0 X10E3/UL 0.0-0.1 2023-07-01 2345-7 GLUCOSE 77 MG/DL 70-99 2023-07-01 3094-0 BUN 11 MG/DL 8-27 2023-07-01 2160-0 CREATININE .97 MG/DL 0.76-1.27 2023-07-01 69946-2 EGFR 81 ML/MIN/1.7 3 >59 2023-07-01 3097-3 BUN/CREATININE RATIO 11 10-24 2023-07-01 2951-2 SODIUM 137 MMOL/L 493-893 2726-08-31 2823-3 POTASSIUM 4.4 MMOL/L 3.5-5.2 2023-07-01 2075-0 CHLORIDE 100 MMOL/L 96-106 2023-07-01 2028-9 CARBON DIOXIDE, TOTAL 26 MMOL/L 20-29 2023-07-01 18933-8 CALCIUM 9.2 MG/DL 8.6-10.2 2023-07-01 2885-2 PROTEIN, TOTAL 6.5 G/DL 6.0-8.5 2023-07-01 1751-7 ALBUMIN 3.9 G/DL 3.8-4.8 2023-07-01 21335-7 GLOBULIN, TOTAL 2.6 G/DL 1.5-4.5 2023-07-01 1759-0 A/G RATIO 1.5 1.2-2.2 2023-07-01 1975-2 BILIRUBIN, TOTAL .4 MG/DL 0.0-1.2 2023-07-01 6768-6 ALKALINE PHOSPHATASE 115 IU/L 44-121 2023-07-01 1920-8 AST (SGOT) 13 IU/L 0-40 2023-07-01 1742-6 ALT (SGPT) 10 IU/L 0-44 2023-07-01 2093-3 CHOLESTEROL, TOTAL 155 MG/DL 246-253 8836-08-311-8 TRIGLYCERIDES 94 MG/DL 0-149 2023-07-012084-9 HDL CHOLESTEROL 31 MG/DL >39 L 2023-07-01 23804-9 VLDL CHOLESTEROL TIMOTHY 18 MG/DL 5-40 2023-07-01 22289-3 LDL CHOL CALC ([facility]) 106 MG/DL 0-99 H
--- OUTSIDE RECORDS SUMMARY | 2024-10-04 19:06 | XMS_ITS | Encounter Summary ---
Author Organization [facility] Address [address] [place], [place] [address] Care Team Providers Care Envelope Fold Operator Name Role Phone Efrain Sarah MD Unavailable [phone] Aris Lynch MD Unavailable [phone] Pcp, No Primary Care Provider Unavailabl e Encounter Details Date Type Department Care Team (Late st Contact Info) Description 12/09/2023 Telephone Pav CC Head, Neck & Respiratory 800 [facility], 2nd [place] [address] Hina Cruz RN [facility] Social History Tobacco Use Types Packs/Day Years Used Date Smoking Tobacco: Every Day Cigarettes 1 70 Smokeless Tobacco: Never Alcohol Use Standard Drinks/Week Comments Never 0 (1 standard drink = 0.6 oz pur e alcohol) Sex and Gender Information Value Date Recorded Sex Assigned at Not on file Legal Sex Male 8:37 PM EDT Gender Identity Not on file Sexual Orientation Not on file documented as of this encounter Miscellaneous Notes * Telephone Encounter - Hina Cruz RN - 12/09/2023 5:59 PM EST RN spoke to pt and pt , Went over surgery education for pt re: date of surgery, call expected for arrival time, npo status at midnight before surgery date, medications to hold and when, parking, registration. Pt verbalized understanding and agreeable to plan. RN gave numbers to clinics ([facility], surgery center, pre-op anesthesia) to call if any questions arise. documented in this encounter Plan of Treatment Not on file documented as of this encounter Visit Diagnoses Not on filedocumented in this encounter Additional Health Concerns Assessment Noted Time A fall risk assessment has been complete d for the patient 12/08/2023 7:52 AM EST documented as of this encounter Care Teams Envelope Fold Operator Relationship Specialty Start Date End Date Pcp, No 800 [place] [address] PCP - General Family Medicine 12/08/23 12/22/23 Efrain Sarah MD [address] [place] [address] 12/02/23 Aris Lynch MD 800 [facility] Cancer [address] [address] Surgeon Otolaryngology 12/02/23 documented as of this encounter
--- OUTSIDE RECORDS SUMMARY | 2024-10-04 19:06 | XMS_ITS | Encounter Summary ---
Author Organization [facility] Address [address] [place] [address] Care Team Providers Care Logistics Loss Prevention Manager Name Role Phone Efrain Sarah MD Unavailable [phone] Aris Lynch MD Unavailable [phone] Pcp, No Primary Care Provider Unavailabl e Encounter Details Date Type Department Care Team (Late st Contact Info) Description 12/09/2023 Telephone PSYCH ONCOLOGY [address] [place] [address] [facility] [address] [place] [address] Social History Tobacco Use Types Packs/Day Years [...] encounter Miscellaneous Notes * Telephone Encounter - James Pham RD - 12/09/2023 10:04 AM EST Reason for call: New PEG Referral source: [facility] Call details: RD received consult from [facility] clinic staff, states pt is planned for PEG placement on 12/13 and needs setup for DME supplies. 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 Given these problems, pt will need to use TF as sole source of nutrition after placement. Estimated Needs: Calorie: 0298-0092 kcal (25-30 kcal/kg) Protein: 89-111g (1.2-1.5 g/kg) RD spoke with pt and and explained referral process to [facility] for setup/supplies, they will meet with pt to delivery supplies and provide education. All questions answered during call, RD contact information was provided and will continue to remain available PRN. Rd recommending goal TF regimen with Isosource 1.5 x 5 cartons/day via gravity which will provide 1875 kcal, 85g protein, and 955mL water + additional 900 mL water for adequate hydration. New orders entered and faxed to [facility] for possible setup. Anthropometrics: Wt Readings from Last 5 Encounters: 12/08/23 74 kg (163 lb 2.3 oz) 06/20/14 110 kg (242 lb) 12/20/13 114 kg (250 lb 15.9 oz) Ht Readings from Last 1 Encounters: 12/08/23 1.854 m (6' 1 ) BMI Readings from Last 1 Encounters: 12/08/23 21.52 kg/m?? Patient referred to [facility] [facility] - [phone]) by [facility] Dietitian. documented in this encounter Plan of Treatment Not on file documented as of this encounter Visit Diagnoses Not on filedocumented in this encounter Additional Health Concerns Assessment Noted Time A fall risk assessment has been complete d for the patient 12/08/2023 7:52 AM EST documented as of this encounter Care Teams Logistics Loss Prevention Manager Relationship Specialty Start Date End Date Pcp, No 800 [place] [address] PCP - General Family Medicine 12/08/23 12/22/23 Efrain Sarah MD [address] [place] [address] 12/02/23 Aris Lynch MD 800 [facility] Cancer [address] [address] Surgeon Otolaryngology 12/02/23 documented as of this encounter
--- OUTSIDE RECORDS SUMMARY | 2024-10-04 19:06 | XMS_ITS | Encounter Summary ---
Author Organization [facility] Address [address] [place] [address] Care Team Providers Care Plant Wire Chief Name Role Phone Pcp, No Primary Care Provider Unavailabl e Reason for Visit * Imaging (Routine) - Closed Specialty Diagnoses / Procedures Referred By Osmany alberto Referred To Contact Cardiology Diagnoses Atrial fibrillation (CMS/HCC) Procedures ADULT ECHO OUTSIDE READ Transmitter ChiefUna MD [address] [place], [place] [address] Phone: tel: Referral ID Status Reason Start Date Expiration Date V isits Requested Visits Authorized [id number] Closed Perform Procedure 05/08/2021 11/04/2021 1 1 Encounter Details Date Type Department Care Team (Latest Contact Info) Description 05/08/2021 3:50 PM EDT Ancillary Procedure [facility] [address] [facility] [address], [place] [address] Atrial fibrillation (CMS/HCC) Social History Tobacco Use Types Packs/Day Years Used Date Smoking Tobacco: Heavy Smoker Sex and Gender Information Value Date Recorded Sex Assigned at Not on file Legal Sex Male 8:37 PM EDT Gender Identity Not on file Sexual Orientation Not on file documented as of this encounter Plan of Treatment Not on file documented as of this encounter Procedures Procedure Name Priority Date/Time Associated Diagnosis Comments ADULT ECHO OUTSIDE READ Routine 05/08/2021 3:46 PM EDT Atrial fibrillation (CMS/HCC) documented in this encounter Results * ADULT ECHO OUTSIDE READ (05/08/2021 3:46 PM EDT) LVIDd 48.0 mm MARC ISCV LVIDs 28.0 mm MARC ISCV IVSd 10.6 mm MARC ISCV LVPWd 8.1 mm MARC ISCV LVOT diam 21.9 mm MARC ISCV LA dimension 46.0 mm MARC ISCV RVIDd 49.0 mm MARC ISCV PA PG 5.5 mmHg MARC ISCV PA V2 Vmax 117.0 cm/s MARC ISCV LV MASS(C)D 154.4 g MARC ISCV LVOT AREA 3.8 cm2 MARC ISCV Ao Root Diam 33.0 cm MARC ISCV TR Max PG 9.1 mmHG AMRC ISCV LVPWs 7.9 mm MARC ISCV IVSs 14.2 mm MARC ISCV BSA 2.4 m2 MARC ISCV RV base 4.7 mm MARC ISCV LAV(MOD-4ch) 43.5 mL MARC ISCV RV NEIL 23.9 cm2 MARC ISCV RV ELSA 15.5 cm2 MARC ISCV RV FAC [id number] 000 % MARC ISCV Anatomical Region Laterality Modality Echocardiography Narrative 05/09/2021 7:14 AM EDT ?Left??Ventricle: Left ventricle size is normal. Normal wall thickness. Ventricular mass is normal. Normal systolic function with a visually estimated EF of greater than 55%. ?Right??Ventricle: Right ventricle is moderately dilated. Mildly reduced systolic function. ?No significant valvular stenosis or regurgitation ?Pericardium: No pericardial effusion. ?No previous study for comparison Left Ventricle Left ventricle size is normal. Normal wall thickness. Ventricular mass is normal. Normal wall motion. Normal systolic function with a visually estimated EF of greater than 55%. Unable to assess diastolic function due to poor image quality. Right Ventricle Right ventricle is moderately dilated.Mildly reduced systolic function. Left Atrium Left atrium size is normal. Right Atrium Right atrium size is normal. IVC/SVC IVC diameter is less than or equal to 21 mm and decreases less than 50% during inspiration; therefore the estimated right atrial pressure is intermediate (~8 mmHg). Mitral Valve Valve structure is normal. No leaflet prolapse. Trace transvalvular regurgitation. No stenosis. Tricuspid Valve Valve structure is normal. No restricted motion. Trace transvalvular regurgitation. No stenosis. Aortic Valve The aortic valve appears to be anatomically normal (trileaflet). No restricted motion. No transvalvular regurgitation. No hemodynamically significant stenosis. Pulmonic Valve Not well visualized. Trace transvalvular regurgitation. No stenosis. Ascending Aorta Normal sized sinus of Valsalva. Pericardium Evidence of epicardial fat. No pericardial effusion. [facility] Transmitter Chief CV ECHO PROCEDURES Dee chiu Result documented in this encounter Visit Diagnoses Diagnosis Atrial fibrillation (CMS/HCC) Atrial fibrillation documented in this encounter Care Teams Plant Wire Chief Relationship Specialty Start Date End Date Pcp, No [address] [place] [address] PCP - General 05/01/21 12/07/23 documented as of this encounter
--- OUTSIDE RECORDS SUMMARY | 2024-10-04 19:06 | XMS_ITS ---
Laboratory report Created on: September 02, 2024 KORYANN MARIE Carney : 1945 Sex: Male Author Name BOGDAN BOYD Organization Unknown PROBLEMS Problems List Code Description E11.65 I10 Z12.5 E78.2 RESULTS Laboratory Orders Date Order Code Test 2023-04-06 [id number] COMP. METABOLIC PANEL (14) 2023-04-06 018601 LIPID PANEL 2023-04-06 [id number] PSA ([facility]) Laboratory Results Date LOINC Test Value Unit Reference Range Interpre tation 2023-04-06 2345-7 GLUCOSE 109 MG/DL 70-99 H 2023-04-06 3094-0 BUN 16 MG/DL 8-27 2023-04-06 2160-0 CREATININE 1.26 MG/DL 0.76-1.27 2023-04-06 01384-1 EGFR 59 ML/MIN/1.7 3 >59 L 2023-04-06 3097-3 BUN/CREATININE RATIO 13 10-24 2023-04-06 2951-2 SODIUM 138 MMOL/L 256-572 3498-06-06 2823-3 POTASSIUM 4.5 MMOL/L 3.5-5.2 2023-04-06 2075-0 CHLORIDE 98 MMOL/L 96-106 2023-04-06 2028-9 CARBON DIOXIDE, TOTAL 24 MMOL/L 20-29 2023-04-06 37912-3 CALCIUM 9.3 MG/DL 8.6-10.2 2023-04-06 2885-2 PROTEIN, TOTAL 6.8 G/DL 6.0-8.5 2023-04-06 1751-7 ALBUMIN 4.3 G/DL 3.7-4.7 2023-04-06 47120-0 GLOBULIN, TOTAL 2.5 G/DL 1.5-4.5 2023-04-06 1759-0 A/G RATIO 1.7 1.2-2.2 2023-04-06 1975-2 BILIRUBIN, TOTAL .4 MG/DL 0.0-1.2 2023-04-06 6768-6 ALKALINE PHOSPHATASE 108 IU/L 44-121 2023-04-06 1920-8 AST (SGOT) 17 IU/L 0-40 2023-04-06 1742-6 ALT (SGPT) 10 IU/L 0-44 2023-04-06 2093-3 CHOLESTEROL, TOTAL 102 MG/DL 381-388 9875-06-06 2571-8 TRIGLYCERIDES 149 MG/DL 0-149 2023-04-06 2085-9 HDL CHOLESTEROL 26 MG/DL >39 L 2023-04-06 34940-6 VLDL CHOLESTEROL TIMOTHY 26 MG/DL 5-40 2023-04-06 56210-4 LDL CHOL CALC ([facility]) 50 MG/DL 0-99 2023-04-06 2857-1 PROSTATE SPECIFIC AG 2.2 NG/ML 0.0-4.0 2023-04-06 64617-6 PDF IMAGE
--- OUTSIDE RECORDS SUMMARY | 2024-10-04 19:06 | XMS_ITS ---
Laboratory report Created on: September 26, 2024 ANN MARIE FELIPE : 1945 Sex: Male Author Name BOGDAN BOYD Organization Unknown PROBLEMS Problems List Code Description I10 RESULTS Laboratory Orders Date Order Code Test 2022-08-06 [id number] COMP. METABOLIC PANEL (14) Laboratory Results Date LOINC Test Value Unit Reference Range Interpre tation 2022-08-06 2345-7 GLUCOSE 134 MG/DL 70-99 H 2022-08-06 3094-0 BUN 15 MG/DL 8-27 2022-08-06 2160-0 CREATININE 1.18 MG/DL 0.76-1.27 2022-08-06 51567-7 EGFR 64 ML/MIN/1.73 >59 2022-08-06 3097-3 BUN/CREATININE RATIO 13 10-24 2022-08-06 2951-2 SODIUM 141 MMOL/L 369-743 0532-10-06 2823-3 POTASSIUM 4.3 MMOL/L 3.5-5.2 2022-08-06 2075-0 CHLORIDE 98 MMOL/L 96-106 2022-08-06 2028-9 CARBON DIOXIDE, TOTAL 26 MMOL/L 20-29 2022-08-06 48039-8 CALCIUM 9.8 MG/DL 8.6-10.2 2022-08-06 2885-2 PROTEIN, TOTAL 7 G/DL 6.0-8.5 2022-08-06 1751-7 ALBUMIN 4.3 G/DL 3.7-4.7 2022-08-06 54158-2 GLOBULIN, TOTAL 2.7 G/DL 1.5-4.5 2022-08-06 1759-0 A/G RATIO 1.6 1.2-2.2 2022-08-06 1975-2 BILIRUBIN, TOTAL .2 MG/DL 0.0-1.2 2022-08-06 6768-6 ALKALINE PHOSPHATASE 95 IU/L 44-121 2022-08-06 1920-8 AST (SGOT) 11 IU/L 0-40 2022-08-06 1742-6 ALT (SGPT) 10 IU/L 0-44
--- OUTSIDE RECORDS SUMMARY | 2024-10-04 19:06 | XMS_ITS ---
Laboratory report Created on: August 30, 2024 ANN MARIE FELIPE : 1945 Sex: Male Author Organization Unknown PROBLEMS Problems List Code Description RESULTS Laboratory Orders Date Order Code Test [id number] CORTISOL Laboratory Results Date LOINC Test Value Unit Reference Range [facility] [place] [id number] 2143-6 CORTISOL 7.8 UG/DL 6.2-19.4
--- OUTSIDE RECORDS SUMMARY | 2024-10-04 19:06 | XMS_ITS ---
Laboratory report Created on: August 31, 2024 ANN MARIE FELIPE : 1945 Sex: Male Author Organization Unknown PROBLEMS Problems List Code Description RESULTS Laboratory Orders Date Order Code Test 2024-04-05 [id number] CORTISOL Laboratory Results Date LOINC Test Value Unit Reference Range Interpre tation 2024-04-05 2143-6 CORTISOL 8.6 UG/DL 6.2-19.4
--- OUTSIDE RECORDS SUMMARY | 2024-10-04 19:06 | XMS_ITS | Encounter Summary ---
Author Organization [facility] Address [address] [place] [address] Care Team Providers Care Electronics System Mechanic Name Role Phone Efrain Sarah MD Unavailable [phone] Aris Lynch MD Unavailable [phone] Pcp, No Primary Care Provider Unavailabl e Encounter Details Date Type Department Care Team (Latest Contact Info) Description 12/08/2023 Travel Social History Tobacco Use Types Packs/Day [...] documented as of this encounter Care Teams Electronics System Mechanic Relationship Specialty Start Date End Date Pcp, No 800 [place] [address] PCP - General Family Medicine 12/08/23 12/22/23 Efrain Sarah MD [address] [place] [address] 12/02/23 Aris Lynch MD 800 [facility] Cancer [address] [address] Surgeon Otolaryngology 12/02/23 documented as of this encounter
--- OUTSIDE RECORDS SUMMARY | 2024-10-04 19:06 | XMS_ITS | Encounter Summary ---
Author Organization [facility] Address [address] [place] [address] Care Team Providers Care Supervisor [employer] Name Role Phone Efrain Sarah MD Unavailable [phone] Aris Lynch MD Unavailable Pcp, No Primary Care Provider Unavailabl e Encounter Details Date Type Department Care Team (Late st Contact Info) Description 12/10/2023 12:30 PM EST Pre-Admission Testing [facility] [address], [address] [place] [id number] Anesthesia Record Procedure Summary Procedure Name Responsible [...] acknowledgement of understanding. 1601 An Stop Meds * Agents No agents on file. * [...] Anesth: None; Technique: Anatomical landmarks; Inserted by: EBCCA LIAO RN; Insertion Attempts: 1; Patient Tolerance: Tolerated well; Removal Date: 12/13/23; Removal Time: 1727; Removal Reason: Discharge 12/13/23 1250 by Becca Liao RN 12/13/23 1727 by Britney Ibanez RN ETT Placement Date: 12/02 12/25; Placement Time: 152 (created via procedure documentation); Mask Ventilation: 2; [...] Day Cigarettes 1 70 Smokeless Tobacco: Never Tobacco Cessation:Ready to Q [...] as of this encounter Miscellaneous Notes * PAT Evaluation Note - Susy Cisse PA - 12/10/2023 12:30 PM EST HPI Vamsi Mallory is a 78 y.o. male who presents with Pre-op Diagnosis * Dysphagia [R13.10] now scheduled for on with Dr. 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 Past Medical History: Diagnosis Date Allergies Arthritis [...] Hx Malig Hyperthermia Neg Hx Social History Tobacco Use Smoking status: Every Day Packs/day: 1.00 Years: 70.00 Additional pack years: 0.00 Total pack years: 70.00 Types: Cigarettes Smokeless tobacco: Never Tobacco comments: Trying to quit Vaping Use Vaping Use: Never used Substance Use Topics Alcohol use: Never Drug use: Never SURGICAL HISTORY: Past Surgical History: Procedure Laterality Date CARDIAC PACEMAKER PLACEMENT CORONARY ARTERY BYPASS GRAFT N/A CABG (CABG) from [facility] KNEE SURGERY N/A Knee Surgery from [facility] SHOULDER SURGERY N/A Shoulder Surgery from [facility] Allergies Allergen Reactions Penicillins Hives and Rash MEDICATIONS: Current Outpatient Medications: aspirin, Take 1 tablet (81 mg) by mouth 1 (one) time each day. atorvastatin, Take 0.5 tablets (40 mg) by mouth 1 (one) time each day. Eliquis, Take 1 tablet (5 mg) by mouth twice a day. metoprolol succinate XL, Take 1 tablet (100 mg) by mouth 1 (one) time each day. isosource 1.5 Perry/mL, 250 mL by Per G Tube route 5 (five) times a day. potassium chloride CR, Take 1 tablet (8 mEq) by mouth 1 (one) time each day. spironolactone, Take 1 tablet (25 mg) by mouth 1 (one) time each day. tamsulosin, Take 1 capsule (0.4 mg) by mouth 1 (one) time each day. ROS Anesthesia: Date of last anesthetic: 11/2023 laryngoscopy with biopsy ([facility]) Endotracheal tube type: ETT Cuffed: yes Successful intubation technique: video laryngoscopy Facilitating devices/methods: cricoid pressure and intubating stylet Blade size: #3 ETT size (mm): 6.0 Cormack-Lehane Classification: grade I - full view of glottis Placement verified by: chest auscultation and capnometry Cuff volume (mL): 8 Measured from: lips ETT to lips (cm): 21 Number of attempts at approach: 1 history of previous anesthesia and obstructive sleep apnea (hx of, no longer requires cpap). Does not have a history of anesthetic complications and PONV. Cardiovascular: atrial fibrillation (chronic a fib, on Eliquis. CHADsvasc 5), CAD (s/p 5 stents, last in 2009/ CABG, 4 vessel 2009), dysrhythmias, hyperlipidemia, pacemaker (s/p Pacemaker- placed around 2021. Last interrogated 07/2023 at cardiology office. No issues) and past MD (last in 2009). Does not have CHF, murmur, orthopnea or syncope. hypertension: Exercise tolerance is 1 flight of stairs. Does not have chest pain. Cardio additional comments: - Circulating Process Inspector: [address], last seen 07/2023 in office (record in media): 6 mo follow up for CAD (stable), KELLEY 2009, Last stress 05/2021- medical management . Hx CABG 2009. On ASA. Chronic afib, rate controlled and on AC with Eliquis. S/p PPM; battery status ok, high % RV pacing 79%, consistent with trends, no new episodes. 100% AT/AF burden. EKG is V-pacing HR 73. RTC 6 months Per Dean [facility]. - ECHO (in media) 08/2023: LVEF 55%, normal bivent systolic function, no significant valvular disease. . Respiratory: Does not have home oxygen. asthma: COPD (managed by PCP, use albuterol infrequently, otherwise no daily inhalers): breathing at baseline.Has not had an upper respiratory infection in last 30 days. Has not had bronchitis in the last 30 days, pneumonia in the last 30 days or COVID in the last 30 days. HEENT: difficulty swallowing and missing teeth (ower dentures, upper dentures). Neurological: no seizures: Did not have a cerebrovascular accident.Does not have TIA. Musculoskeletal: Does not have cervical spine limited mobility. Integumentary: Negative skin ROS. Gastrointestinal: Does not have GERD.Does not have cirrhosis. Genitourinary: Does not have renal disease. Hematological/Lymphatic: Does not have anemia. History of no DVT. History of no pulmonary embolism. Not in a hypercoagulablestate. no history of chemotherapy no history of radiation Does not have HIV, MRSA or tuberculosis. Hem/Lymph ROS additional comments: - On ASA 81mg daily and Eliquis (was instructed to stop 12/08/[address] Lynch) Endocrine/Metabolic: does not have diabetes mellitus. Does not have thyroid disorder. Visit Vitals Smoking Status Every Day 12/08/2023 7:48 AM Vitals Systolic 113 Diastolic 70 Heart Rate 70 Temp 36.6 C Resp 16 Height (cm) 185.4 cm Weight (kg) 74 kg BMI 21.52 kg/m2 BSA (m2) 1.95 m2 Visit Report Report Lab Results Component Value Date WBC 11.06 (H) 12/08/2023 HGB 13.7 12/08/2023 HCT 41.3 12/08/2023 MCV 90 12/08/2023 PLT 222 12/08/2023 Lab Results Component Value Date GLUCOSE 93 12/08/2023 BUN 16 12/08/2023 CREATININE 0.96 12/08/2023 BCR 17 12/08/2023 NA 139 12/08/2023 K 4.4 12/08/2023 CL 100 12/08/2023 CO2 28 12/08/2023 ALBUMIN 4.1 12/08/2023 ALKPHOS 103 12/08/2023 BILITOT 0.4 12/08/2023 No results found for: HGBA1C Lab Results Component Value Date INR 1.0 12/08/2023 Physical Exam phone screen ECHO 05/2021: Left Ventricle: Left ventricle size is normal. Normal wall thickness. Ventricular mass is normal. Normal systolic function with a visually estimated EF of greater than 55%. Right Ventricle: Right ventricle is moderately dilated. Mildly reduced systolic function. No significant valvular stenosis or regurgitation Pericardium: No pericardial effusion. Anesthesia Plan ASA 3 Anesthesia technique(s) discussed with the patient/family: general Comment: PA-C phone screen. Discussed with Dr. Das. ANATOLIY Raymond * Preprocedure Instructions - Susy Cisse PA - 12/10/2023 12:30 PM EST Current Medications Medication Instructions aspirin 81 MG EC tablet Take morning of surgery per Dr. Das atorvastatin (Lipitor) 80 MG tablet Take morning of surgery Eliquis 5 MG tablet Pt holding, was instructed to stop on 12/08/23 until after surgery. metoprolol succinate XL (Toprol-XL) 100 MG 24 hr tablet Take morning of surgery Nutritional Supplements (isosource 1.5 Perry/mL) Hold day of surgery potassium chloride CR (Klor-Con) 8 MEQ ER tablet Hold day of surgery spironolactone (Aldactone) 25 MG tablet Hold day of surgery tamsulosin (Flomax) 0.4 MG 24 hr capsule Take morning of surgery General Preoperative Instructions You will be called the business day before surgery with your arrival time Do not eat or drink anything after midnight except water with your medications unless other instructions are given No alcohol or smoking prior to surgery Arrive on time to avoid delays Parking/Registration procedure explained You MUST have a responsible adult available for transport to and from hospital Visitation policy for the day of surgery reviewed Bring insurance card, photo ID, along with power of plant mechanic, guardianship or advanced directives if applicable Do not bring money, jewelry or other valuables Hibiclens bathing instructions reviewed if applicable Notify surgeon of fever, illness, any changes or if you decide not to have surgery documented in this encounter Plan of Treatment Not on file documented as of this encounter Visit Diagnoses Not on filedocumented in this encounter Additional Health Concerns Assessment Noted Time A fall risk assessment has been complete d for the patient 12/08/2023 7:52 AM EST documented as of this encounter Care Teams Supervisor [employer] Relationship Specialty Start Date End Date Pcp, No [address] [place] [address] PCP - General Family Medicine 12/08/23 12/22/23 Efrain Sarah MD [address] [place] [address] 12/02/23 Aris Lynch MD [address] [facility] [address] [address] Surgeon Otolaryngology 12/02/23 documented as of this encounter
--- OUTSIDE RECORDS SUMMARY | 2024-10-04 19:06 | XMS_ITS ---
Laboratory report Created on: September 28, 2024 ANN MARIE FELIPE : 1945 Sex: Male Author Organization Unknown PROBLEMS Problems List Code Description RESULTS Laboratory Orders Date Order Code Test 2024-07-21 215349 CORTISOL Laboratory Results Date LOINC Test Value Unit Reference Range Interpre tation 2024-07-21 2143-6 CORTISOL 9.6 UG/DL 6.2-19.4
--- OUTSIDE RECORDS SUMMARY | 2024-10-04 19:06 | XMS_ITS | Encounter Summary ---
Author Organization [facility] Address [address] [place] [address] Care Team Providers Care Metal Dealer Name Role Phone Pcp, No Primary Care Provider UnavailEfrain Devi MD Unavailable [phone] Aris Lynch MD Unavailable [phone] Encounter Details Date Type Department Care Team (Late st Contact Info) Description 11/24/2023 Orders Only External Location [address] [place] [address] Camryn Meadows DO [address] [place] [address] Social History Tobacco Use Types Packs/Day Years [...] Name Priority Date/Time Associated Diagnosis Comments CT OUTSIDE IMAGES 11/24/2023 3:11 PM EST documented in this encounter Results * CT OUTSIDE IMAGES (11/24/2023 3:11 PM EST) Anatomical Region Laterality Modality Computed Tomogra phy 11/24/2023 3:11 PM EST [address] CT PROCEDURES Final Result documented in this encounter Visit Diagnoses Not on filedocumented in this encounter Care Teams Metal Dealer Relationship Specialty Start Date End Date Pcp, No [address] [place] [address] PCP - General 05/01/21 12/07/23 Efrain Sarah MD [address] [place] [address] 12/02/23 Aris Lynch MD [address] [place] [address] Surgeon Otolaryngology 12/02/23 documented as of this encounter
--- OUTSIDE RECORDS SUMMARY | 2024-10-04 19:06 | XMS_ITS ---
Laboratory report Created on: September 23, 2024 ANN MARIE FELIPE : 1945 Sex: Male Author Organization Unknown PROBLEMS Problems List Code Description RESULTS Laboratory Orders Date Order Code Test 2024-09-20 [id number] CORTISOL Laboratory Results Date LOINC Test Value Unit Reference Range Interpre tation 2024-09-20 2143-6 CORTISOL 8.5 UG/DL 6.2-19.4
--- OUTSIDE RECORDS SUMMARY | 2024-10-04 19:06 | XMS_ITS | Encounter Summary ---
Author Organization [facility] Address [address] [place] [address] Care Team Providers Care Environmental Geologist Name Role Phone Pcp, No Primary Care Provider UnavailEfrain Devi MD Unavailable [phone] Aris Lynch MD Unavailable [phone] Pcp, No Primary Care Provider UnavailDrew Tellez MD Primary Care Provider [phone] Anjelica Keys MD Unavailable [phone] Toñito Huerta MD Unavailable [phone] Encounter Details Date Type Department Care Team (Late st Contact Info) Description 11/24/2023 Orders Only External Location [address] [place] [address] Camryn Meadows, DO [address] [place] [address] Social History Tobacco Use Types Packs/Day Years [...] Name Priority Date/Time Associated Diagnosis Comments CT SOFT TISSUE NECK W IV CONTRAST 11/24/2023 3:11 PM EST documented in this encounter Results * CT Soft Tissue Neck w IV Contrast (11/24/2023 3:11 PM EST) Anatomical Region Laterality Modality Neck Computed Tomogra phy 11/24/2023 3:11 PM EST us Camryn Su Meadows DO IMG CT PROCEDURES Final Result documented in this encounter Visit Diagnoses Not on filedocumented in this encounter Care Teams Environmental Geologist Relationship Specialty Start Date End Date Pcp, No [address] [place] [address] PCP - General 05/01/21 12/07/23 Pcp, No [address] [place] [address] PCP - General Family Medicine 12/08/23 12/22/23 Drew Howell MD [address] [place] [address] PCP - General 12/23/23 Efrain Sarah MD [address] [place] [address] 12/02/23 Aris Lynch MD 800 [facility] [address] [place] [address] Surgeon Otolaryngology 12/02/23 Anjelica Keys MD 800 [facility] [address] [place] [address] Consulting Physician Medical Oncology 01/13/24 01/17/24 Toñito Huerta MD [address] [address] Consulting Physician Medical Oncology 01/18/24 documented as of this encounter
--- OUTSIDE RECORDS SUMMARY | 2024-10-04 19:06 | XMS_ITS ---
Laboratory report Created on: September 02, 2024 ANN MARIE FELIPE : 1945 Sex: Male Author Name BOGDAN BOYD Organization Unknown PROBLEMS Problems List Code Description E11.9 Z12.5 RESULTS Laboratory Orders Date Order Code Test 2022-05-05 438236 COMP. METABOLIC PANEL (14) 2022-05-05 [id number] PSA (SERIAL JESSIE TOR) Laboratory Results Date LOINC Test Value Unit Reference Range Interpre tation 2022-05-05 2345-7 GLUCOSE 135 MG/DL 65-99 H 2022-05-05 3094-0 BUN 15 MG/DL 8-27 2022-05-05 2160-0 CREATININE 1.13 MG/DL 0.76-1.27 2022-05-05 01480-6 EGFR 68 ML/MIN/1.73 >59 2022-05-05 3097-3 BUN/CREATININE RATIO 13 10-24 2022-05-05 2951-2 SODIUM 138 MMOL/L 493-361 6548-07-05 2823-3 POTASSIUM 4.4 MMOL/L 3.5-5.2 2022-05-05 2075-0 CHLORIDE 95 MMOL/L 96-106 L 2022-05-05 2028-9 CARBON DIOXIDE, TOTAL 24 MMOL/L 20-29 2022-05-05 16181-5 CALCIUM 9.6 MG/DL 8.6-10.2 2022-05-05 2885-2 PROTEIN, TOTAL 7.5 G/DL 6.0-8.5 2022-05-05 1751-7 ALBUMIN 4.6 G/DL 3.7-4.7 2022-05-05 49069-1 GLOBULIN, TOTAL 2.9 G/DL 1.5-4.5 2022-05-05 1759-0 A/G RATIO 1.6 1.2-2.2 2022-05-05 1975-2 BILIRUBIN, TOTAL .8 MG/DL 0.0-1.2 2022-05-05 6768-6 ALKALINE PHOSPHATASE 113 IU/L 44-121 2022-05-05 1920-8 AST (SGOT) 14 IU/L 0-40 2022-05-05 1742-6 ALT (SGPT) 10 IU/L 0-44 2022-05-05 2857-1 PROSTATE SPECIFI C AG 1.3 NG/ML 0.0-4.0 2022-05-05 03859-2 PDF IMAGE
--- OUTSIDE RECORDS SUMMARY | 2024-10-04 19:06 | XMS_ITS | Encounter Summary ---
Author Organization [facility] Address [address] [place] [address] Care Team Providers Care Manager Life Name Role Phone Unavailable Primary Care Provider Unavailabl e Encounter Details Date Type Department Care Team (Late st Contact Info) Description 06/20/2014 [facility] AEHR Vitals Encounter [facility] OUTPATIENT CONVERSIONS [address] [place] [address] ProviderYoung MD [address] [place] [address] Social History Tobacco Use Types Packs/Day Years Used Date Smoking Tobacco: Never Assessed Sex and Gender Information Value Date Recorded Sex Assigned at Not on file Legal Sex Male 8:37 PM EDT Gender Identity Not on file Sexual Orientation Not on file documented as of this encounter Last Filed Vital Signs Vital Sign Reading Time Taken Comments Blood Pressure - - Pulse - - Temperature - - Respiratory Rate - - Oxygen Saturation - - Inhaled Oxygen Concentration - - Weight 110 kg (242 lb) 06/20/2014 12:29 PM EDT Height 185.4 cm (6' 1 ) 06/20/2014 12:29 PM EDT Body Mass Index 31.93 06/20/2014 12:29 PM EDT documented in this encounter Plan of Treatment Not on file documented as of this encounter Visit Diagnoses Not on filedocumented in this encounter
--- OUTSIDE RECORDS SUMMARY | 2024-10-04 19:06 | XMS_ITS ---
Laboratory report Created on: September 02, 2024 ANN MARIE FELIPE : 1945 Sex: Male Author Name BOGDAN BOYD Organization Unknown PROBLEMS Problems List Code Description E11.65 RESULTS Laboratory Orders Date Order Code Test 2022-02-12 185079 COMP. METABOLIC PANEL (14) 2022-02-12 145460 HEMOGLOBIN A1C Laboratory Results Date INC Test Value Unit Reference Range Interpre tation 2022-02-12 2345-7 GLUCOSE 159 MG/DL 65-99 H 2022-02-12 3094-0 BUN 18 MG/DL 8-27 2022-02-12 2160-0 CREATININE 1.06 MG/DL 0.76-1.27 2022-02-12 08217-7 EGFR 73 ML/MIN/1.73 >59 2022-02-12 3097-3 BUN/CREATININE RATIO 17 10-24 2022-02-12 2951-2 SODIUM 140 MMOL/L 409-180 5351-04-14 2823-3 POTASSIUM 4.9 MMOL/L 3.5-5.2 2022-02-12 2075-0 CHLORIDE 99 MMOL/L 96-106 2022-02-12 2028-9 CARBON DIOXIDE, TOTAL 19 MMOL/L 20-29 L 2022-02-12 25584-1 CALCIUM 9.8 MG/DL 8.6-10.2 2022-02-12 2885-2 PROTEIN, TOTAL 7.2 G/DL 6.0-8.5 2022-02-12 1751-7 ALBUMIN 4.6 G/DL 3.7-4.7 2022-02-12 72994-1 GLOBULIN, TOTAL 2.6 G/DL 1.5-4.5 2022-02-12 1759-0 A/G RATIO 1.8 1.2-2.2 2022-02-12 1975-2 BILIRUBIN, TOTAL .3 MG/DL 0.0-1.2 2022-02-12 6768-6 ALKALINE PHOSPHATASE 105 IU/L 44-121 2022-02-12 1920-8 AST (SGOT) 11 IU/L 0-40 2022-02-12 1742-6 ALT (SGPT) 11 IU/L 0-44 2022-02-12 4548-4 HEMOGLOBIN A1C 6.9 % 4.8-5.6 H
--- OUTSIDE RECORDS SUMMARY | 2024-10-04 19:06 | XMS_ITS ---
Laboratory report Created on: September 01, 2024 ANN MARIE FELIPE : 1945 Sex: Male Author Organization Unknown PROBLEMS Problems List Code Description RESULTS Laboratory Orders Date Order Code Test 2024-06-29 [id number] CORTISOL Laboratory Results Date LOINC Test Value Unit Reference Range Interpre tation 2024-06-29 2143-6 CORTISOL 12.2 UG/DL 6.2-19.4
--- OUTSIDE RECORDS SUMMARY | 2024-10-04 19:06 | XMS_ITS | Encounter Summary ---
Author Organization [facility] Address [address] [id number] Care Team Providers Care Head Paper Tester Name Role Phone Efrain Sarah MD Unavailable [phone] Aris Lynch MD Unavailable [phone] Pcp, Olga Primary Care Provider Unavailabl e Encounter Details Date Type Department Care Team (Late st Contact Info) Description 12/08[facility] [address] [place] [address] Jeremiah Das MD [address] [place] [address] Social History Tobacco Use Types Packs/Day Years [...] documented as of this encounter Care Teams Head Paper Tester Relationship Specialty Start Date End Date Pcp, No [address] [place] [address] PCP - General Family Medicine 12/08/23 12/22/23 Efrain Sarah MD [address] [place] [address] 12/02/23 Aris Lynch MD [address] [place] [address] Surgeon Otolaryngology 12/02/23 documented as of this encounter
--- OUTSIDE RECORDS SUMMARY | 2024-10-04 19:06 | XMS_ITS ---
Laboratory report Created on: September 11, 2024 ANN MARIE FELIPE : 1945 Sex: Male Author Name JER METZGER Organization Unknown PROBLEMS Problems List Code Description Z00.00 E11.9 I10 E78.2 E55.9 Z12.5 RESULTS Laboratory Orders Date Order Code Test 2024-01-18 [id number] CBC WITH DIFFERE NTIAL/PLATELET 2024-01-18 166280 COMP. METABOLIC PANEL (14) 2024-01-18 038345 LIPID PANEL 2024-01-18 021666 PSA (SERIAL JESSIE TOR) 2024-01-18 242047 HEMOGLOBIN A1C 2024-01-18 697412 VITAMIN D, 25-HY DROXY Laboratory Results Date LOINC Test Value Unit Reference Range Interpre tation 2024-01-18 6690-2 WBC 9.3 X10E3/UL 3.4-10.8 2024-01-18 789-8 RBC 4.03 X10E6/UL 4.14-5.80 L 2024-01-18 718-7 HEMOGLOBIN 12.4 G/DL 13.0-17.7 L 2024-01-18 4544-3 HEMATOCRIT 36.2 % 37.5-51.0 L 2024-01-18 787-2 MCV 90 FL 79-97 2024-01-18 785-6 MCH 30.8 PG 26.6-33.0 2024-01-18 786-4 MCHC 34.3 G/DL 31.5-35.7 2024-01-18 788-0 RDW 13.2 % 11.6-15.4 2024-01-18 777-3 PLATELETS 171 X10E3/UL 971-910 5175-03-19 770-8 NEUTROPHILS 75 % 2024-01-18 736-9 LYMPHS 17 % 2024-01-18 5905-5 MONOCYTES 7 % 2024-01-18 713-8 EOS 1 % 2024-01-18 706-2 BASOS 0 % 2024-01-18 751-8 NEUTROPHILS (ABSOLUTE) 7 X10E3/UL 1.4-7.0 2024-01-18 731-0 LYMPHS (ABSOLUTE) 1.6 X10E3/UL 0.7-3.1 2024-01-18 742-7 MONOCYTES(ABSOLUTE) .7 X10E3/UL 0.1-0.9 2024-01-18 711-2 EOS (ABSOLUTE) .1 X10E3/UL 0.0-0.4 2024-01-18 704-7 BASO (ABSOLUTE) 0 X10E3/UL 0.0-0.2 2024-01-18 24166-3 IMMATURE GRANULOCYTES 0 % 2024-01-18 78736-4 IMMATURE GRANS (ABS) 0 X10E3/UL 0.0-0.1 2024-01-18 2345-7 GLUCOSE 137 MG/DL 70-99 H 2024-01-18 3094-0 BUN 16 MG/DL 8-2024-01-18 2160-0 CREATININE .86 MG/DL 0.76-1.27 2024-01-18 74777-3 EGFR 89 ML/MIN/1.7 3 >59 2024-01-18 3097-3 BUN/CREATININE RATIO 19 -2024-01-18 2951-2 SODIUM 140 MMOL/L 118-166 3926-03-19 2823-3 POTASSIUM 4.5 MMOL/L 3.5-5.2 2024-01-18 2075-0 CHLORIDE 100 MMOL/L 96-106 2024-01-18 2028-9 CARBON DIOXIDE, TOTAL 27 MMOL/L 2024-01-18 67303-1 CALCIUM 9 MG/DL 8.6-10.2 2024-01-18 2885-2 PROTEIN, TOTAL 6.5 G/DL 6.0-8.5 2024-01-18 1751-7 ALBUMIN 3.9 G/DL 3.8-4.8 2024-01-18 40273-4 GLOBULIN, TOTAL 2.6 G/DL 1.5-4.5 2024-01-18 1759-0 A/G RATIO 1.5 1.2-2.2 2024-01-18 1975-2 BILIRUBIN, TOTAL .4 MG/DL 0.0-1.2 2024-01-18 6768-6 ALKALINE PHOSPHATASE 104 IU/L 44-121 2024-01-18 1920-8 AST (SGOT) 13 IU/L 0-40 2024-01-18 1742-6 ALT (SGPT) 14 IU/L 0-44 2024-01-18 2093-3 CHOLESTEROL, TOTAL 159 MG/DL 511-114 6774-03-19 2571-8 TRIGLYCERIDES 173 MG/DL 0-149 H 2024-01-18 2085-9 HDL CHOLESTEROL 27 MG/DL >39 L 2024-01-18 28277-1 VLDL CHOLESTEROL TIMOTHY 31 MG/DL 5-40 2024-01-18 47785-6 LDL CHOL CALC ([facility]) 101 MG/DL 0-99 H 2024-01-18 2857-1 PROSTATE SPECIFIC AG 1.9 NG/ML 0.0-4.0 2024-01-18 91448-2 PDF IMAGE 2024-01-18 4548-4 HEMOGLOBIN A1C 5.7 % 4.8-5.6 H 2024-01-18 16197-6 VITAMIN D, 25-HYDROXY 38.6 NG/ML 30.0-100.0
--- OUTSIDE RECORDS SUMMARY | 2024-10-04 19:06 | XMS_ITS ---
Laboratory report Created on: September 28, 2024 ANN MARIE FELIPE : 1945 Sex: Male Author Name BOGDAN BOYD Organization Unknown PROBLEMS Problems List Code Description E11.65 I10 E78.2 RESULTS Laboratory Orders Date Order Code Test 2022-11-06 [id number] COMP. METABOLIC PANEL (14) 2022-11-06 136188 LIPID PANEL Laboratory Results Date LOINC Test Value Unit Reference Range Interpre tation 2022-11-06 2345-7 GLUCOSE 113 MG/DL 70-99 H 2022-11-06 3094-0 BUN 25 MG/DL 8-27 2022-11-06 2160-0 CREATININE 1.09 MG/DL 0.76-1.27 2022-11-06 77622-9 EGFR 70 ML/MIN/1.7 3 >59 2022-11-06 3097-3 BUN/CREATININE RATIO 23 10-24 2022-11-06 2951-2 SODIUM 140 MMOL/L 538-072 5905-01-06 2823-3 POTASSIUM 4.4 MMOL/L 3.5-5.2 2022-11-06 2075-0 CHLORIDE 98 MMOL/L 96-106 2022-11-06 2028-9 CARBON DIOXIDE, TOTAL 25 MMOL/L 20-29 2022-11-06 02551-1 CALCIUM 9 MG/DL 8.6-10.2 2022-11-06 2885-2 PROTEIN, TOTAL 7.2 G/DL 6.0-8.5 2022-11-06 1751-7 ALBUMIN 4.3 G/DL 3.7-4.7 2022-11-06 24734-0 GLOBULIN, TOTAL 2.9 G/DL 1.5-4.5 2022-11-06 1759-0 A/G RATIO 1.5 1.2-2.2 2022-11-06 1975-2 BILIRUBIN, TOTAL .3 MG/DL 0.0-1.2 2022-11-06 6768-6 ALKALINE PHOSPHATASE 95 IU/L 44-121 2022-11-06 1920-8 AST (SGOT) 12 IU/L 0-40 2022-11-06 1742-6 ALT (SGPT) 12 IU/L 0-44 2022-11-063-3 CHOLESTEROL, TOTAL 120 MG/DL 705-281 7994-01-06 2571-8 TRIGLYCERIDES 203 MG/DL 0-149 H 2022-11-065-9 HDL CHOLESTEROL 25 MG/DL >39 L 2022-11-06 94188-5 VLDL CHOLESTEROL TIMOTHY 34 MG/DL 5-40 2022-11-06 49886-6 LDL CHOL CALC ([facility]) 61 MG/DL 0-99
--- OUTSIDE RECORDS SUMMARY | 2024-10-04 19:06 | XMS_ITS | Encounter Summary ---
Author Organization [facility] Address [address] [place] [address] Care Team Providers Care Technical Administrative Assistant Name Role Phone Unavailable Primary Care Provider Unavailabl e Encounter Details Date Type Department Care Team (Late st Contact Info) Description 12/20/2013 [facility] AEHR Vitals Encounter [facility] OUTPATIENT CONVERSIONS [address] [place] [address] ProviderYoung MD [address] [place] [address] Social History Tobacco Use Types Packs/Day [...] - Inhaled Oxygen Concentration - - Weight 114 kg (250 lb 15.9 oz) 12/20/2013 2:40 P M EST Height 185.4 cm (6' 1 ) 12/20/2013 2:40 PM EST Body Mass Index 33.11 12/20/2013 2:40 PM EST documented in this encounter Plan of Treatment Not on file documented as of this encounter Visit Diagnoses Not on filedocumented in this encounter
--- OUTSIDE RECORDS SUMMARY | 2024-10-04 19:06 | XMS_ITS ---
Laboratory report Created on: August 30, 2024 ANN MARIE FELIPE : 1945 Sex: Male Author Organization Unknown PROBLEMS Problems List Code Description RESULTS Laboratory Orders Date Order Code Test 2024-05-18 [id number] [facility] Laboratory Results Date LOINC Test Value Unit Reference Range Interpre tation 2024-05-18 2143-6 CORTISOL 10.1 UG/DL 6.2-19.4
--- OUTSIDE RECORDS SUMMARY | 2024-10-04 19:06 | XMS_ITS ---
Laboratory report Created on: August 30, 2024 ANN MARIE FELIPE : 1945 Sex: Male Author Organization Unknown PROBLEMS Problems List Code Description RESULTS Laboratory Orders Date Order Code Test 2024-04-27 [id number] [facility] Laboratory Results Date LOINC Test Value Unit Reference Range Interpre tation 2024-04-27 2143-6 CORT[facility] 7.7 UG/DL 6.2-19.4
--- OUTSIDE RECORDS SUMMARY | 2024-10-04 19:06 | XMS_ITS ---
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
--- OUTSIDE RECORDS SUMMARY | 2024-10-04 19:06 | XMS_ITS ---
Author Organization Unknown ALLERGIES AND ADVERSE REACTIONS No information ASSESSMENT No information CHIEF COMPLAINT No information Medications Date Medication Dosage Dosageunit Startdate Active Dispense Refills Ndccode Isprescription Srcstatus 07/20 00:00 :00 Accu-Chek Guide - Strip 0 50 Strip 12 [id number] 110 Unknown Status 06/19 00:00 :00 Accu-Chek Guide - Strip 0 50 Strip 12 [id number] 110 Unknown Status 04/19 00:00 :00 Accu-Chek Guide - Strip 0 50 Strip 12 [id number] 110 Unknown Status 02/15 00:00 :00 Accu-Chek Guide - Strip 0 50 Strip 12 [id number] 110 Unknown Status 01/17 00:00 :00 Accu-Chek Guide - Strip 0 50 Strip 12 [id number] 110 Unknown Status 12/14 00:00 :00 Accu-Chek Guide - Strip 1 50 Strip 12 [id number] 110 Taking 09/29 00:00 :00 Accu-Chek Guide - Strip 1 50 Strip 12 [id number] 110 Taking 07/20 00:00 :00 Alcohol Pads 70 % Pad 0 100 Pad 11 [id number] 128 Unknown Status 06/19 00:00 :00 Alcohol Pads 70 % Pad 0 100 Pad 11 [id number] 128 Unknown Status 04/19 00:00 :00 Alcohol Pads 70 % Pad 0 100 Pad 11 [id number] 128 Unknown Status 02/15 00:00 :00 Alcohol Pads 70 % Pad 0 100 Pad 11 [id number] 128 Unknown Status 01/17 00:00 :00 Alcohol Pads 70 % Pad 0 100 Pad 11 [id number] 128 Unknown Status 12/14 00:00 :00 Alcohol Pads 70 % Pad 1 100 Pad 11 [id number] 128 Taking 09/29 00:00 :00 Alcohol Pads 70 % Pad 1 100 Pad 11 [id number] 128 Taking 07/20 00:00 :00 Aspirin 81 MG Tablet 0 90 1 [id number] 05 Unknown Status 06/19 00:00 :00 Aspirin 81 MG Tablet 0 90 1 [id number] 05 Unknown Status 04/19 00:00 :00 Aspirin 81 MG Tablet 0 90 1 [id number] 05 Unknown Status 02/15 00:00 :00 Aspirin 81 MG Tablet 0 90 1 [id number] 05 Unknown Status 01/17 00:00 :00 Aspirin 81 MG Tablet 0 90 1 [id number] 05 Unknown Status 12/14 00:00 :00 Aspirin 81 MG Tablet 1 90 1 [id number] 05 Taking 09/29 00:00 :00 Aspirin 81 MG Tablet 1 90 1 [id number] 05 Taking 07/20 00:00 :00 Atorvastati n Calcium 40 mg tab 0 90 Tablet 1 [id number] 110 Unknown Status 06/19 00:00 :00 Atorvastati n Calcium 40 mg tab 0 90 Tablet 1 [id number] 110 Unknown Status 04/19 00:00 :00 Atorvastati n Calcium 40 mg tab 0 90 Tablet 1 [id number] 110 Unknown Status 02/15 00:00 :00 Atorvastati n Calcium 40 mg tab 0 90 Tablet 1 [id number] 110 Unknown Status 01/17 00:00 :00 Atorvastati n Calcium 40 mg tab 0 90 Tablet 1 [id number] 110 Unknown Status 12/14 00:00 :00 Atorvastati n Calcium 40 mg tab 1 90 Tablet 1 [id number] 110 Taking 09/29 00:00 :00 Atorvastati n Calcium 40 mg tab 1 90 Tablet 1 [id number] 110 Taking 07/20 00:00 :00 Blood Glucose System [place] - Kit 09/13/2019 00:00:00 0 200 11 [id number] 113 P Unknown Status 06/19 00:00 :00 Blood Glucose System [place] - Kit 09/13/2019 00:00:00 0 200 11 [id number] 113 P Unknown Status 04/19 00:00 :00 Blood Glucose System [place] - Kit 09/13/2019 00:00:00 0 200 11 [id number] 113 P Unknown Status 02/15 00:00 :00 Blood Glucose System [place] - Kit 09/13/2019 00:00:00 0 200 11 [id number] 113 P Unknown Status 01/17 00:00 :00 Blood Glucose System [place] - Kit 09/13/2019 00:00:00 0 200 11 [id number] 113 P Unknown Status 12/14 00:00 :00 Blood Glucose System [place] - Kit 09/13/2019 00:00:00 1 200 11 [id number] 113 P Taking 09/29 00:00 :00 Blood Glucose System [place] - Kit 09/13/2019 00:00:00 1 200 11 [id number] 113 P Taking 07/20 00:00 :00 Blood Glucose Test - Strip 09/13/2019 00:00:00 0 200 11 [id number] 742 Unknown Status 06/19 00:00 :00 Blood Glucose Test - Strip 09/13/2019 00:00:00 0 200 11 [id number] 742 Unknown Status 04/19 00:00 :00 Blood Glucose Test - Strip 09/13/2019 00:00:00 0 200 11 [id number] 742 Unknown Status 02/15 00:00 :00 Blood Glucose Test - Strip 09/13/2019 00:00:00 0 200 11 [id number] 742 Unknown Status 01/17 00:00 :00 Blood Glucose Test - Strip 09/13/2019 00:00:00 0 200 11 [id number] 742 Unknown Status 12/14 00:00 :00 Blood Glucose Test - Strip 09/13/2019 00:00:00 1 200 11 [id number] 742 Taking 09/29 00:00 :00 Blood Glucose Test - Strip 09/13/2019 00:00:00 1 200 11 [id number] 742 Taking 07/20 00:00 :00 Cetirizine HCl 10 mg Tablet 1 30 Tablet 3 [id number] 115 Taking 07/04 00:00 :00 Cetirizine HCl 10 mg Tablet 1 30 Tablet 3 [id number] 115 Start 07/04 00:00 :00 Cetirizine HCl 10 mg Tablet 0 30 3 [id number] 697 Stop 06/19 00:00 :00 Cetirizine HCl 10 mg Tablet 0 30 3 [id number] 697 P Unknown Status 04/19 00:00 :00 Cetirizine HCl 10 mg Tablet 0 30 3 [id number] 697 P Unknown Status 02/15 00:00 :00 Cetirizine HCl 10 mg Tablet 0 30 3 [id number] 697 P Unknown Status 01/17 00:00 :00 Cetirizine HCl 10 mg Tablet 0 30 3 [id number] 697 P Unknown Status 01/09 00:00 :00 Cetirizine HCl 10 mg Tablet 1 30 3 [id number] 697 P Refill 12/14 00:00 :00 Cetirizine HCl 10 mg Tablet 1 30 Tablet 12 [id number] 697 Taking 09/29 00:00 :00 Cetirizine HCl 10 mg Tablet 1 30 Tablet 12 [id number] 697 Taking 07/20 00:00 :00 [place] Choice Comfort EZ 33G X 4 MM Miscellaneo us 02/22/2019 00:00:00 0 90 3 [id number] 807 P Unknown Status 06/19 00:00 :00 [place] Choice Comfort EZ 33G X 4 MM Miscellaneo us 02/22/2019 00:00:00 0 90 3 [id number] 807 P Unknown Status 04/19 00:00 :00 [place] Choice Comfort EZ 33G X 4 MM Miscellaneo us 02/22/2019 00:00:00 0 90 3 [id number] 807 P Unknown Status 02/15 00:00 :00 [place] Choice Comfort EZ 33G X 4 MM Miscellaneo us 02/22/2019 00:00:00 0 90 3 [id number] 807 P Unknown Status 01/17 00:00 :00 [place] Choice Comfort EZ 33G X 4 MM Miscellaneo us 02/22/2019 00:00:00 0 90 3 [id number] 807 P Unknown Status 12/14 00:00 :00 [place] Choice Comfort EZ 33G X 4 MM Miscellaneo us 02/22/2019 00:00:00 1 90 3 [id number] 807 P Taking 09/29 00:00 :00 [place] Choice Comfort EZ 33G X 4 MM Miscellaneo us 02/22/2019 00:00:00 1 90 3 [id number] 807 P Taking 07/20 00:00 :00 Eliquis 5 mg Tablet 1 180 Tablet 1 [id number] 421 P Taking 06/19 00:00 :00 Eliquis 5 mg Tablet 1 180 Tablet 1 [id number] 421 P Taking 05/05 00:00 :00 Eliquis 5 mg Tablet 1 180 Tablet 1 [id number] 421 P Refill 04/19 00:00 :00 Eliquis 5 mg Tablet 0 180 Tablet 4 [id number] 421 Unknown Status 02/15 00:00 :00 Eliquis 5 mg Tablet 0 180 Tablet 4 [id number] 421 Unknown Status 01/17 00:00 :00 Eliquis 5 mg Tablet 0 180 Tablet 4 [id number] 421 Unknown Status 12/14 00:00 :00 Eliquis 5 mg Tablet 1 180 Tablet 4 [id number] 421 Taking 09/29 00:00 :00 Eliquis 5 mg Tablet 1 180 Tablet 4 [id number] 421 Taking 07/20 00:00 :00 Finasteride 5 MG Tablet 0 30 [id number] 505 Unknown Status 06/19 00:00 :00 Finasteride 5 MG Tablet 0 30 [id number] 505 Unknown Status 04/19 00:00 :00 Finasteride 5 MG Tablet 0 30 [id number] 505 Unknown Status 02/15 00:00 :00 Finasteride 5 MG Tablet 0 30 [id number] 505 Unknown Status 01/17 00:00 :00 Finasteride 5 MG Tablet 0 30 [id number] 505 Unknown Status 12/14 00:00 :00 Finasteride 5 MG Tablet 1 30 [id number] 505 Taking 09/29 00:00 :00 Finasteride 5 MG Tablet 1 30 [id number] 505 Taking 07/20 00:00 :00 Ipratropium [place] 0.02 % Solution 0 3 6 [id number] 649 P Unknown Status 06/19 00:00 :00 Ipratropium [place] 0.02 % Solution 0 3 6 [id number] 649 P Unknown Status 04/19 00:00 :00 Ipratropium [place] 0.02 % Solution 0 3 6 [id number] 649 P Unknown Status 02/15 00:00 :00 Ipratropium [place] 0.02 % Solution 0 3 6 [id number] 649 P Unknown Status 01/17 00:00 :00 Ipratropium [place] 0.02 % Solution 0 3 6 [id number] 649 P Unknown Status 12/14 00:00 :00 Ipratropium [place] 0.02 % Solution 1 3 6 [id number] 649 P Taking 09/29 00:00 :00 Ipratropium [place] 0.02 % Solution 1 3 6 [id number] 649 P Taking 07/20 00:00 :00 Jardiance 25 mg Tablet 1 90 Tablet 0 [id number] 330 Taking 06/19 00:00 :00 Jardiance 25 mg Tablet 1 90 Tablet 0 [id number] 330 Taking 05/07 00:00 :00 Jardiance 25 mg Tablet 1 90 Tablet 0 [id number] 330 Start 05/07 00:00 :00 Jardiance 25 mg Tablet 0 90 Tablet 0 [id number] 330 Stop 04/19 00:00 :00 Jardiance 25 mg Tablet 1 90 Tablet 0 [id number] 330 Taking 02/15 00:00 :00 Jardiance 25 mg Tablet 1 90 Tablet 0 [id number] 330 Taking 02/06 00:00 :00 Jardiance 25 mg Tablet 1 90 Tablet 0 [id number] 330 Start 02/06 00:00 :00 Jardiance 25 mg Tablet 0 90 Tablet 0 [id number] 330 Stop 01/17 00:00 :00 Jardiance 25 mg Tablet 0 90 Tablet 0 [id number] 330 Unknown Status 12/14 00:00 :00 Jardiance 25 mg Tablet 1 90 Tablet 0 [id number] 330 Taking 11/08 00:00 :00 Jardiance 25 mg Tablet 1 90 Tablet 0 [id number] 330 Start 11/08 00:00 :00 Jardiance 25 mg Tablet 0 90 Tablet 0 [id number] 330 Stop 09/29 00:00 :00 Jardiance 25 mg Tablet 1 90 Tablet 0 [id number] 330 Taking 08/08 00:00 :00 Jardiance 25 mg Tablet 1 90 Tablet 0 [id number] 330 Start 08/08 00:00 :00 Jardiance 25 mg Tablet 0 90 Tablet 1 [id number] 330 Stop 07/20 00:00 :00 Lancets - Miscellaneo us 12/22/2021 00:00:00 0 200 3 [id number] 082 Unknown Status 06/19 00:00 :00 Lancets - Miscellaneo us 12/22/2021 00:00:00 0 200 3 [id number] 082 Unknown Status 04/19 00:00 :00 Lancets - Miscellaneo us 12/22/2021 00:00:00 0 200 3 [id number] 082 Unknown Status 02/15 00:00 :00 Lancets - Miscellaneo us 12/22/2021 00:00:00 0 200 3 [id number] 082 Unknown Status 01/17 00:00 :00 Lancets - Miscellaneo us 12/22/2021 00:00:00 0 200 3 [id number] 082 Unknown Status 12/14 00:00 :00 Lancets - Miscellaneo us 12/22/2021 00:00:00 1 200 3 [id number] 082 Taking 09/29 00:00 :00 Lancets - Miscellaneo us 12/22/2021 00:00:00 1 200 3 [id number] 082 Taking 07/20 00:00 :00 Levemir FlexTouch 100 UNIT/ML Solution Pen-injecto r 0 15 Millilite r 6 [id number] 810 Unknown Status 06/19 00:00 :00 Levemir FlexTouch 100 UNIT/ML Solution Pen-injecto r 0 15 Millilite r 6 [id number] 810 Unknown Status 04/19 00:00 :00 Levemir FlexTouch 100 UNIT/ML Solution Pen-injecto r 0 15 Millilite r 6 [id number] 810 Unknown Status 02/15 00:00 :00 Levemir FlexTouch 100 UNIT/ML Solution Pen-injecto r 0 15 Millilite r 6 [id number] 810 Unknown Status 01/17 00:00 :00 Levemir FlexTouch 100 UNIT/ML Solution Pen-injecto r 0 15 Millilite r 6 [id number] 810 Unknown Status 12/14 00:00 :00 Levemir FlexTouch 100 UNIT/ML Solution Pen-injecto r 1 15 Millilite r 6 [id number] 810 Taking 09/29 00:00 :00 Levemir FlexTouch 100 UNIT/ML Solution Pen-injecto r 1 15 Millilite r 6 [id number] 810 Taking 07/20 00:00 :00 Losartan Potassium 50 mg Tablet 1 90 Tablet 1 [id number] 111 P Taking 06/19 00:00 :00 Losartan Potassium 50 mg Tablet 1 90 Tablet 1 [id number] 111 P Taking 05/05 00:00 :00 Losartan Potassium 50 mg Tablet 1 90 Tablet 1 [id number] 111 P Refill 04/19 00:00 :00 Losartan Potassium 50 mg Tablet 0 90 Tablet 4 [id number] 111 Unknown Status 02/15 00:00 :00 Losartan Potassium 50 mg Tablet 0 90 Tablet 4 [id number] 111 Unknown Status 01/17 00:00 :00 Losartan Potassium 50 mg Tablet 0 90 Tablet 4 [id number] 111 Unknown Status 12/14 00:00 :00 Losartan Potassium 50 mg Tablet 1 90 Tablet 4 [id number] 111 Taking 09/29 00:00 :00 Losartan Potassium 50 mg Tablet 1 90 Tablet 4 [id number] 111 Taking 07/20 00:00 :00 metFORMIN HCl ER 750 mg Tablet Extended Release 24 Hour 1 180 Tablet 3 [id number] 901 Taking 07/14 00:00 :00 metFORMIN HCl ER 750 mg Tablet Extended Release 24 Hour 1 180 Tablet 3 [id number] 901 Start 07/14 00:00 :00 metFORMIN HCl ER 750 mg Tablet Extended Release 24 Hour 0 180 Tablet 3 [id number] 901 Stop 06/19 00:00 :00 metFORMIN HCl ER 750 mg Tablet Extended Release 24 Hour 0 180 Tablet 3 [id number] 901 Unknown Status 04/19 00:00 :00 metFORMIN HCl ER 750 mg Tablet Extended Release 24 Hour 0 180 Tablet 3 [id number] 901 Unknown Status 02/15 00:00 :00 metFORMIN HCl ER 750 mg Tablet Extended Release 24 Hour 0 180 Tablet 3 [id number] 901 Unknown Status 01/17 00:00 :00 metFORMIN HCl ER 750 mg Tablet Extended Release 24 Hour 0 180 Tablet 3 [id number] 901 Unknown Status 12/14 00:00 :00 metFORMIN HCl ER 750 mg Tablet Extended Release 24 Hour 1 180 Tablet 3 [id number] 901 Taking 09/29 00:00 :00 metFORMIN HCl ER 750 mg Tablet Extended Release 24 Hour 1 180 Tablet 3 [id number] 901 Taking 07/26 00:00 :00 metFORMIN HCl ER 750 mg Tablet Extended Release 24 Hour 1 180 Tablet 3 [id number] 901 Start 07/26 00:00 :00 metFORMIN HCl ER 750 mg 0 180 Tablet 4 [id number] 901 Stop 07/20 00:00 :00 Metoprolol Succinate ER 50 MG Tablet Extended Release 24 Hour 10/14/2022 00:00:00 0 30 5 [id number] 610 P Unknown Status 06/19 00:00 :00 Metoprolol Succinate ER 50 MG Tablet Extended Release 24 Hour 10/14/2022 00:00:00 0 30 5 [id number] 610 P Unknown Status 04/19 00:00 :00 Metoprolol Succinate ER 50 MG Tablet Extended Release 24 Hour 10/14/2022 00:00:00 0 30 5 [id number] 610 P Unknown Status 02/15 00:00 :00 Metoprolol Succinate ER 50 MG Tablet Extended Release 24 Hour 10/14/2022 00:00:00 0 30 5 [id number] 610 P Unknown Status 01/17 00:00 :00 Metoprolol Succinate ER 50 MG Tablet Extended Release 24 Hour 10/14/2022 00:00:00 0 30 5 [id number] 610 P Unknown Status 12/14 00:00 :00 Metoprolol Succinate ER 50 MG Tablet Extended Release 24 Hour 10/14/2022 00:00:00 1 30 5 [id number] 610 P Taking 09/29 00:00 :00 Metoprolol Succinate ER 50 MG Tablet Extended Release 24 Hour 10/14/2022 00:00:00 1 30 5 [id number] 610 P Taking 07/20 00:00 :00 Montelukast Sodium 10 MG Tablet 0 90 2 [id number] 019 Unknown Status 06/19 00:00 :00 Montelukast Sodium 10 MG Tablet 0 90 2 [id number] 019 Unknown Status 04/19 00:00 :00 Montelukast Sodium 10 MG Tablet 0 90 2 [id number] 019 Unknown Status 02/15 00:00 :00 Montelukast Sodium 10 MG Tablet 0 90 2 [id number] 019 Unknown Status 01/17 00:00 :00 Montelukast Sodium 10 MG Tablet 0 90 2 [id number] 019 Unknown Status 12/14 00:00 :00 Montelukast Sodium 10 MG Tablet 1 90 2 [id number] 019 Taking 09/29 00:00 :00 Montelukast Sodium 10 MG Tablet 1 90 2 [id number] 019 Taking 07/20 00:00 :00 Needle (Disp) 31 g x 5/16 Miscellaneo us 0 100 5 [id number] 109 Unknown Status 06/19 00:00 :00 Needle (Disp) 31 g x 5/16 Miscellaneo us 0 100 5 [id number] 109 Unknown Status 04/19 00:00 :00 Needle (Disp) 31 g x 5/16 Miscellaneo us 0 100 5 [id number] 109 Unknown Status 02/15 00:00 :00 Needle (Disp) 31 g x 5/16 Miscellaneo us 0 100 5 [id number] 109 Unknown Status 01/17 00:00 :00 Needle (Disp) 31 g x 5/16 Miscellaneo us 0 100 5 [id number] 109 Unknown Status 12/14 00:00 :00 Needle (Disp) 31 g x 5/16 Miscellaneo us 1 100 5 [id number] 109 Taking 09/29 00:00 :00 Needle (Disp) 31 g x 5/16 Miscellaneo us 1 100 5 [id number] 109 Taking 07/20 00:00 :00 Nitrostat 0.4 MG Tablet Sublingual 0 [id number] 813 Unknown Status 06/19 00:00 :00 Nitrostat 0.4 MG Tablet Sublingual 0 [id number] 813 Unknown Status 04/19 00:00 :00 Nitrostat 0.4 MG Tablet Sublingual 0 [id number] 813 Unknown Status 02/15 00:00 :00 Nitrostat 0.4 MG Tablet Sublingual 0 [id number] 813 Unknown Status 01/17 00:00 :00 Nitrostat 0.4 MG Tablet Sublingual 0 [id number] 813 Unknown Status 12/14 00:00 :00 Nitrostat 0.4 MG Tablet Sublingual 1 [id number] 813 Taking 09/29 00:00 :00 Nitrostat 0.4 MG Tablet Sublingual 1 [id number] 813 Taking 07/20 00:00 :00 Ondansetron HCl 4 MG Tablet 06/19/2024 00:00:00 1 80 Tablet 3 [id number] 161 P Taking 06/19 00:00 :00 Ondansetron HCl 4 MG Tablet 06/19/2024 00:00:00 1 80 Tablet 3 [id number] 161 P Start 07/20 00:00 :00 Pantoprazol e Sodium 40 mg Tablet Delayed Release 1 90 Tablet 1 [id number] 099 Taking 06/19 00:00 :00 Pantoprazol e Sodium 40 mg Tablet Delayed Release 1 90 Tablet 1 [id number] 099 Taking 04/19 00:00 :00 Pantoprazol e Sodium 40 mg Tablet Delayed Release 1 90 Tablet 1 [id number] 099 Taking 03/10 00:00 :00 Pantoprazol e Sodium 40 mg Tablet Delayed Release 1 90 Tablet 1 [id number] 099 Start 03/10 00:00 :00 Pantoprazol e Sodium 40 MG Tablet Delayed Release 0 90 Tablet 2 [id number] 910 Stop 02/15 00:00 :00 Pantoprazol e Sodium 40 MG Tablet Delayed Release 01/04/2023 00:00:00 0 90 Tablet 2 [id number] 910 P Unknown Status 01/17 00:00 :00 Pantoprazol e Sodium 40 MG Tablet Delayed Release 01/04/2023 00:00:00 0 90 Tablet 2 [id number] 910 P Unknown Status 12/14 00:00 :00 Pantoprazol e Sodium 40 MG Tablet Delayed Release 01/04/2023 00:00:00 1 90 Tablet 2 [id number] 910 P Taking 09/29 00:00 :00 Pantoprazol e Sodium 40 MG Tablet Delayed Release 01/04/2023 00:00:00 1 90 Tablet 2 31913761 910 P Taking 04/19 00:00 :00 Polymyxin B-Trimethop rim 21856-7 .1 UNIT/ML Solution 02/16/2024 00:00:00 0 1 Unspecifi ed 1 91202753 510 P Discontinu ed 02/15 00:00 :00 Polymyxin B-Trimethop rim 02428-0 .1 UNIT/ML Solution 02/16/2024 00:00:00 1 1 Unspecifi ed 1 63718730 510 P Start 04/19 00:00 :00 predniSONE 20 MG Tablet 02/16/2024 00:00:00 0 12 Tablet 0 55618147 820 P Discontinu ed 02/22 00:00 :00 predniSONE 20 MG Tablet 02/16/2024 00:00:00 1 12 Tablet 0 [id number] 820 P Refill 02/15 00:00 :00 predniSONE 20 MG Tablet 02/16/2024 00:00:00 1 12 Tablet 0 [id number] 820 P Start 07/20 00:00 :00 Spironolact one 25 MG Tablet 0 15 [id number] 601 Unknown Status 06/19 00:00 :00 Spironolact one 25 MG Tablet 0 15 [id number] 601 Unknown Status 04/19 00:00 :00 Spironolact one 25 MG Tablet 0 15 [id number] 601 Unknown Status 02/15 00:00 :00 Spironolact one 25 MG Tablet 0 15 [id number] 601 Unknown Status 01/17 00:00 :00 Spironolact one 25 MG Tablet 0 15 [id number] 601 Unknown Status 12/14 00:00 :00 Spironolact one 25 MG Tablet 1 15 [id number] 601 Taking 09/29 00:00 :00 Spironolact one 25 MG Tablet 1 15 [id number] 601 Taking 07/20 00:00 :00 Tamsulosin HCl 0.4 mg Capsule 1 90 Capsule 1 [id number] 210 P Taking 06/19 00:00 :00 Tamsulosin HCl 0.4 mg Capsule 1 90 Capsule 1 [id number] 210 P Taking 05/05 00:00 :00 Tamsulosin HCl 0.4 mg Capsule 1 90 Capsule 1 [id number] 210 P Refill 04/19 00:00 :00 Tamsulosin HCl 0.4 mg Capsule 0 90 Capsule 12 [id number] 210 Unknown Status 02/15 00:00 :00 Tamsulosin HCl 0.4 mg Capsule 0 90 Capsule 12 [id number] 210 Unknown Status 01/17 00:00 :00 Tamsulosin HCl 0.4 mg Capsule 0 90 Capsule 12 [id number] 210 Unknown Status 12/14 00:00 :00 Tamsulosin HCl 0.4 mg Capsule 1 90 Capsule 12 53052402 210 Taking 09/29 00:00 :00 Tamsulosin HCl 0.4 mg Capsule 1 90 Capsule 12 [id number] 210 Taking 07/20 00:00 :00 Torsemide 10 MG Tablet 10/13/2021 00:00:00 0 30 0 [id number] 001 P Unknown Status 06/19 00:00 :00 Torsemide 10 MG Tablet 10/13/2021 00:00:00 0 30 0 [id number] 001 P Unknown Status 04/19 00:00 :00 Torsemide 10 MG Tablet 10/13/2021 00:00:00 0 30 0 [id number] 001 P Unknown Status 02/15 00:00 :00 Torsemide 10 MG Tablet 10/13/2021 00:00:00 0 30 0 [id number] 001 P Unknown Status 01/17 00:00 :00 Torsemide 10 MG Tablet 10/13/2021 00:00:00 0 30 0 [id number] 001 P Unknown Status 12/14 00:00 :00 Torsemide 10 MG Tablet 10/13/2021 00:00:00 1 30 0 [id number] 001 P Taking 09/29 00:00 :00 Torsemide 10 MG Tablet 10/13/2021 00:00:00 1 30 0 [id number] 001 P Taking 07/20 00:00 :00 traMADol HCl 50 MG Tablet 08/07/2014 00:00:00 0 120 0 [id number] 801 P Unknown Status 06/19 00:00 :00 traMADol HCl 50 MG Tablet 08/07/2014 00:00:00 0 120 0 [id number] 801 P Unknown Status 04/19 00:00 :00 traMADol HCl 50 MG Tablet 08/07/2014 00:00:00 0 120 0 [id number] 801 P Unknown Status 02/15 00:00 :00 traMADol HCl 50 MG Tablet 08/07/2014 00:00:00 0 120 0 [id number] 801 P Unknown Status 01/17 00:00 :00 traMADol HCl 50 MG Tablet 08/07/2014 00:00:00 0 120 0 [id number] 801 P Unknown Status 12/14 00:00 :00 traMADol HCl 50 MG Tablet 08/07/2014 00:00:00 1 120 0 [id number] 801 P Taking 09/29 00:00 :00 traMADol HCl 50 MG Tablet 08/07/2014 00:00:00 1 120 0 [id number] 801 P Taking 07/20 00:00 :00 Trelegy Ellipta 200-62. 5-25 MCG/INH Aerosol Powder Breath Activated 0 1 11 [id number] 310 Unknown Status 06/19 00:00 :00 Trelegy Ellipta 200-62. 5-25 MCG/INH Aerosol Powder Breath Activated 0 1 11 [id number] 310 Unknown Status 04/19 00:00 :00 Trelegy Ellipta 200-62. 5-25 MCG/INH Aerosol Powder Breath Activated 0 1 11 [id number] 310 Unknown Status 02/15 00:00 :00 Trelegy Ellipta 200-62. 5-25 MCG/INH Aerosol Powder Breath Activated 0 1 11 [id number] 310 Unknown Status 01/17 00:00 :00 Trelegy Ellipta 200-62. 5-25 MCG/INH Aerosol Powder Breath Activated 0 1 11 [id number] 310 Unknown Status 12/14 00:00 :00 Trelegy Ellipta 200-62. 5-25 MCG/INH Aerosol Powder Breath Activated 1 1 11 [id number] 310 Taking 09/29 00:00 :00 Trelegy Ellipta 200-62. 5-25 MCG/INH Aerosol Powder Breath Activated 1 1 11 [id number] 310 Taking 07/20 00:00 :00 Trulicity 0.75 MG/0.5M L Solution Pen-injecto r 01/19/2024 00:00:00 1 4 0 [id number] 301 P Taking 07/20 00:00 :00 Trulicity 1.5 MG/0.5M L Solution Pen-injecto r 1 4 3 [id number] 480 P Not Taking 06/19 00:00 :00 Trulicity 0.75 MG/0.5M L Solution Pen-injecto r 01/19/2024 00:00:00 1 4 0 [id number] 301 P Taking 06/19 00:00 :00 Trulicity 1.5 MG/0.5M L Solution Pen-injecto r 1 4 3 [id number] 480 P Not Taking 04/19 00:00 :00 Trulicity 0.75 MG/0.5M L Solution Pen-injecto r 01/19/2024 00:00:00 1 4 0 [id number] 301 P Taking 04/19 00:00 :00 Trulicity 1.5 MG/0.5M L Solution Pen-injecto r 1 4 3 [id number] 480 P Not Taking 02/15 00:00 :00 Trulicity 0.75 MG/0.5M L Solution Pen-injecto r 01/19/2024 00:00:00 1 4 0 [id number] 301 P Taking 02/15 00:00 :00 Trulicity 1.5 MG/0.5M L Solution Pen-injecto r 1 4 3 [id number] 480 P Not Taking 01/18 00:00 :00 Trulicity 0.75 MG/0.5M L Solution Pen-injecto r 01/19/2024 00:00:00 1 4 0 [id number] 301 P Start 01/17 00:00 :00 Trulicity 1.5 MG/0.5M L Solution Pen-injecto r 1 4 3 [id number] 480 P Refill 01/17 00:00 :00 Trulicity 1.5 MG/0.5M L Solution Pen-injecto r 0 4 3 [id number] 480 P Unknown Status 01/05 00:00 :00 Trulicity 1.5 MG/0.5M L Solution Pen-injecto r 1 4 3 [id number] 480 P Refill 01/04 00:00 :00 Trulicity 1.5 MG/0.5M L Solution Pen-injecto r 1 2 Millilite r 0 [id number] 480 P Refill 12/14 00:00 :00 Trulicity 1.5 MG/0.5M L Solution Pen-injecto r 1 2 Millilite r 0 [id number] 480 P Taking 09/29 00:00 :00 Trulicity 1.5 MG/0.5M L Solution Pen-injecto r 1 2 Millilite r 0 [id number] 480 P Taking 07/29 00:00 :00 Trulicity 1.5 MG/0.5M L Solution Pen-injecto r 1 2 Millilite r 0 [id number] 480 P Refill 07/20 00:00 :00 Ventolin HFA 108 (90 Base) MCG/ACT Aerosol Solution 12/26/2018 00:00:00 0 90 2 [id number] 220 P Unknown Status 06/19 00:00 :00 Ventolin HFA 108 (90 Base) MCG/ACT Aerosol Solution 12/26/2018 00:00:00 0 90 2 [id number] 220 P Unknown Status 04/19 00:00 :00 Ventolin HFA 108 (90 Base) MCG/ACT Aerosol Solution 12/26/2018 00:00:00 0 90 2 [id number] 220 P Unknown Status 02/15 00:00 :00 Ventolin HFA 108 (90 Base) MCG/ACT Aerosol Solution 12/26/2018 00:00:00 0 90 2 [id number] 220 P Unknown Status 01/17 00:00 :00 Ventolin HFA 108 (90 Base) MCG/ACT Aerosol Solution 12/26/2018 00:00:00 0 90 2 [id number] 220 P Unknown Status 12/14 00:00 :00 Ventolin HFA 108 (90 Base) MCG/ACT Aerosol Solution 12/26/2018 00:00:00 1 90 2 [id number] 220 P Taking 09/29 00:00 :00 Ventolin HFA 108 (90 Base) MCG/ACT Aerosol Solution 12/26/2018 00:00:00 1 90 2 [id number] 220 P Taking 11/13 00:00 :00 Vitamin D (Cholecalci ferol) 50 MCG (2000 UT) Capsule 0 30 3 52930802 073 Stop 09/29 00:00 :00 Vitamin D (Cholecalci ferol) 50 MCG (2000 UT) Capsule 07/09/2023 00:00:00 1 30 3 [id number] 073 P Taking 07/20 00:00 :00 Vitamin D3 50 MCG (2000 UT) Capsule 1 30 Capsule 3 [id number] 301 P Taking 06/19 00:00 :00 Vitamin D3 50 MCG (2000 UT) Capsule 1 30 Capsule 3 [id number] 301 P Taking 04/19 00:00 :00 Vitamin D3 50 MCG (2000 UT) Capsule 1 30 Capsule 3 [id number] 301 P Taking 02/15 00:00 :00 Vitamin D3 50 MCG (2000 UT) Capsule 1 30 Capsule 3 [id number] 301 P Taking 01/17 00:00 :00 Vitamin D3 50 MCG (2000 UT) Capsule 1 30 Capsule 3 [id number] 301 P Refill 01/17 00:00 :00 Vitamin D3 50 MCG (2000 UT) Capsule 0 30 Capsule 3 [id number] 301 Unknown Status 12/14 00:00 :00 Vitamin D3 50 MCG (2000 UT) Capsule 1 30 Capsule 3 [id number] 301 Taking 11/13 00:00 :00 Vitamin D3 50 MCG (2000 UT) Capsule 1 30 Capsule 3 [id number] 301 Start 07/20 00:00 :00 Voltaren 1 % Gel 02/13/2022 00:00:00 0 200 1 [id number] 202 P Unknown Status 06/19 00:00 :00 Voltaren 1 % Gel 02/13/2022 00:00:00 0 200 1 [id number] 202 P Unknown Status 04/19 00:00 :00 Voltaren 1 % Gel 02/13/2022 00:00:00 0 200 1 [id number] 202 P Unknown Status 02/15 00:00 :00 Voltaren 1 % Gel 02/13/2022 00:00:00 0 200 1 [id number] 202 P Unknown Status 01/17 00:00 :00 Voltaren 1 % Gel 02/13/2022 00:00:00 0 200 1 [id number] 202 P Unknown Status 12/14 00:00 :00 Voltaren 1 % Gel 02/13/2022 00:00:00 1 200 1 [id number] 202 P Taking 09/29 00:00 :00 Voltaren 1 % Gel 02/13/2022 00:00:00 1 200 1 [id number] 202 P Taking 07/20 00:00 :00 Zithromax Z-Bryan 250 MG Tablet 04/19/2024 00:00:00 1 1 0 [id number] [id number] P Not Taking 07/20 00:00 :00 Zithromax Z-Bryan 250 MG Tablet 01/18/2024 00:00:00 1 1 1 [id number] 075 P Not Taking 06/19 00:00 :00 Zithromax Z-Bryan 250 MG Tablet 04/19/2024 00:00:00 1 1 0 [id number] 075 P Not Taking 06/19 00:00 :00 Zithromax Z-Bryan 250 MG Tablet 01/18/2024 00:00:00 1 1 1 [id number] 075 P Not Taking 04/19 00:00 :00 Zithromax Z-Bryan 250 MG Tablet 04/19/2024 00:00:00 1 1 0 [id number] 075 P Start 04/19 00:00 :00 Zithromax Z-Bryan 250 MG Tablet 01/18/2024 00:00:00 1 1 1 [id number] 075 P Not Taking 02/15 00:00 :00 Zithromax Z-Bryan 250 MG Tablet 01/18/2024 00:00:00 1 1 1 [id number] 075 P Not Taking 01/17 00:00 :00 Zithromax Z-Bryan 250 MG Tablet 01/18/2024 00:00:00 1 1 1 [id number] 075 P Start OBJECTIVE DATA No information PHYSICAL EXAMINATION No information TREATMENT PLAN No information PROBLEMS No information RESULTS No information REVIEW OF SYSTEMS No information SUBJECTIVE DATA No information VITAL SIGNS No information
--- OUTSIDE RECORDS SUMMARY | 2024-10-04 19:06 | XMS_ITS | Encounter Summary ---
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) Procedures CT Chest w IV Contrast Aris Lynch MD [facility] [address] [address] Phone: tel: fax: Referral ID Status Reason Start Date Expiration Date Visits Re quested Visits Authorized [id number] Closed 12/08/2023 06/08/2025 1 1 Reason for Visit * Imaging (Routine) - Closed Specialty Diagnoses / Procedures Referred By Osmany alberto Referred To Contact Radiology Diagnoses 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) Procedures CT Chest w IV Contrast Aris Lynch MD [facility] [address] [address] Phone: tel: fax: Referral ID Status Reason Start Date Expiration Date Visits Re quested Visits Authorized [id number] Closed 12/08/2023 06/08/2025 1 1 Encounter Details Date Type Department Care Team (Latest Contact Info) Description 12/08/2023 10:39 AM EST - 12/08/2023 11:59 PM EST Hospital Encounter [facility] [address] [place] [address] SCC (squamous cell carcinoma) of supraglottis ([facility]/HCC) Discharge Disposition: Home or Self Care Social [...] on file documented as of this encounter Discharge Instructions * Discharge Instructions* Marta Latham - 12/08/2023 10:45 AM EST * Attachments The following attachments cannot be sent through Care Everywhere. * Contrast Imaging Discharge Instructions ([place]) (Algerian) documented in this encounter Medications at Time [...] day. 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 73m*2 12/08/2023 11:32 AM EST [facility] Can Tester ID Marta Latham 12/08/2023 11:32 AM EST [facility] Device ID [id number] 12/08/2023 11:32 AM EST [facility] Comment 12/08/2023 11:32 AM EST [facility] Comment:Testing performed on i-STAT at the point of care. Reported eGFRcr in mL/min/1.73m2 is based the CKD-EPI 2020 equation that does not use a race coefficient. 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 documented in this encounter Administered Medications Inactive Administered Medications - up to 3 most recent administrations Medication Order MAR Action Action Date Dose Rate Site iohexol (OMNIPaque) 300 MG/ML injection 100 mL 100 mL, Intravenous, Once in imaging, 1 dose, Starting on Wed12/08/23 at 1047, Until Wed12/08/23 at 1146, Routine, Imaging Protocol Orders Given 12/08/2023 11:46 AM EST 80 mL documented in this encounter Additional Health Concerns Assessment Noted Time A fall risk assessment has been complete d for the patient 12/08/2023 7:52 AM EST documented as of this encounter Care Teams Sign Poster Relationship Specialty Start Date End Date Pcp, No [address] [place] [address] PCP - General Family Medicine 12/08/23 12/22/23 Efrain Sarah MD [address] [place] [address] 12/02/23 Aris Lynch MD [address] [place] [address] Surgeon Otolaryngology 12/02/23 documented as of this encounter
--- OUTSIDE RECORDS SUMMARY | 2024-10-04 19:06 | XMS_ITS ---
Laboratory report Created on: September 08, 2024 ANN MARIE FELIPE : 1945 Sex: Male Author Name BOGDAN BOYD Organization Unknown PROBLEMS Problems List Code Description E11.65 E78.2 RESULTS Laboratory Orders Date Order Code Test 2023-01-04 299195 COMP. METABOLIC PANEL (14) 2023-01-04 [id number] TSH Laboratory Results Date LOINC Test Value Unit Reference Range Interpre tation 2023-01-04 2345-7 GLUCOSE 120 MG/DL 70-99 H 2023-01-04 3094-0 BUN 20 MG/DL 8-27 2023-01-04 2160-0 CREATININE 1.21 MG/DL 0.76-1.27 2023-01-04 10480-1 EGFR 62 ML/MIN/1.73 >59 2023-01-04 3097-3 BUN/CREATININE RATIO 17 10-24 2023-01-04 2951-2 SODIUM 138 MMOL/L 449-898 6132-03-06 2823-3 POTASSIUM 4.4 MMOL/L 3.5-5.2 2023-01-04 2075-0 CHLORIDE 98 MMOL/L 96-106 2023-01-04 2028-9 CARBON DIOXIDE, TOTAL 24 MMOL/L 20-29 2023-01-04 06569-1 CALCIUM 9.3 MG/DL 8.6-10.2 2023-01-04 2885-2 PROTEIN, TOTAL 6.9 G/DL 6.0-8.5 2023-01-04 1751-7 ALBUMIN 4.5 G/DL 3.7-4.7 2023-01-04 68302-7 GLOBULIN, TOTAL 2.4 G/DL 1.5-4.5 2023-01-04 1759-0 A/G RATIO 1.9 1.2-2.2 2023-01-04 1975-2 BILIRUBIN, TOTAL .3 MG/DL 0.0-1.2 2023-01-04 6768-6 ALKALINE PHOSPHATASE 89 IU/L 44-121 2023-01-04 1920-8 AST (SGOT) 11 IU/L 0-40 2023-01-04 1742-6 ALT (SGPT) 12 IU/L 0-44 2023-01-04 61046-8 TSH 2.73 UIU/ML 0.450-4.500
--- OUTSIDE RECORDS SUMMARY | 2024-10-04 19:06 | XMS_ITS | Encounter Summary ---
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) Severe protein-calorie malnutrition (CMS/HCC) Cigarette nicotine dependence with nicotine-induced disorder Type 2 diabetes mellitus without complication, without long-term current use of insulin (CMS/HCC) Parotid mass Aris Lynch MD [address] [address] Phone: tel: fax: [facility] [address], [address] [place] [address] Phone: tel: Referral ID Status Reason Start Date Expiration Date Visits Requested Visits Authorized [id number] Authorized Consult and Treat 12/08/2023 06/08/2025 1 1 Scheduling Instructions upcoming head & neck surgery * Consultation (Routine) - Authorized Specialty Diagnoses / Procedures Referred By Contbahman alberto Referred To Contact Cardiothoracic Surgery Diagnoses 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) Severe protein-calorie malnutrition (CMS/HCC) Parotid mass Aris Lynch MD 800 [facility] [address] [place] [address] Phone: tel: fax: CARDIOTHORACIC SURGERY [address] [place] [address] Phone: tel: Referral ID Status Reason Start Date Expiration Date Visits Requested Visits Authorized [id number] Authorized Specialty Services Required 12/08/2023 06/08/2025 1 1 Scheduling Instructions MAXWELL PEG placement, poor nutrition, upcoming head & neck surgery * Imaging (Routine) - Closed Specialty Diagnoses / Procedures Referred By Osmany alberto Referred To Contact Radiology Diagnoses 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) Procedures CT Chest w IV Contrast Aris Lynch MD 800 [facility] [address] [address] Phone: tel: fax: Referral ID Status Reason Start Date Expiration Date Visits Re quested Visits Authorized [id number] Closed 12/08/2023 06/08/2025 1 1 Reason for Visit * Reason Comments New Patient Labs * Consultation (Routine) - Closed Specialty Diagnoses / Procedures Referred By Osmany alberto Referred To Contact Surgical Oncology / Hematology and Oncology Diagnoses 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); Cigarette nicotine dependence with nicotine-induced disorder; Type 2 diabetes mellitus without complication, without long-term current use of insulin (CMS/HCC); Parotid mass; Pharyngoesophageal dysphagia Social History Tobacco Use Types Packs/Day Years Used Date Smoking Tobacco: Every Day Cigarettes 1 70 Smokeless Tobacco: Never Tobacco Cessation:Ready to Q uit: Yes; Counseling Given: No Alcohol Use Standard Drinks/Week Comments Never 0 (1 standard drink = 0.6 oz pur e alcohol) Sex and Gender Information Value Date Recorded Sex Assigned at Not on file Legal Sex Male 8:37 PM EDT Gender Identity Not on file Sexual Orientation Not on file documented as of this encounter Last Filed Vital Signs Vital Sign Reading Time Taken Comments Blood Pressure 113/70 12/08/2023 7:48 AM EST Pulse 70 12/08/2023 7:48 AM EST Temperature 36.6 ??C (97.9 ??F) 12/08/2023 7:48 AM ES T Respiratory Rate 16 12/08/2023 7:48 AM EST Oxygen Saturation 98% 12/08/2023 7:48 AM EST Inhaled Oxygen Concentration - - Weight 74 kg (163 lb 2.3 oz) 12/08/2023 7:48 AM EST Height 185.4 cm (6' 1 ) 12/08/2023 7:48 AM EST Body Mass Index 21.52 12/08/2023 7:48 AM EST documented in this encounter Miscellaneous Notes * Progress Notes - Manuel Bonilla DO - 12/08/2023 8:00 AM EST Dear Efrain Sarah MD, I had the pleasure of seeing Mr. Vamsi Mallory in my Head and Neck clinic at the [facility]. As you know, Mr. Vamsi Mallory [...] also denied dyspepsia, dyspnea or reflux disease. The patient's complete review of system from 12/08/23 was performed today. All systems were negative except for those mentioned in the HPI, []. Radiographs: - CT scan of the neck: . 11/24/23: - CT scan of the chest: . - PET CT scan: . N/A - Ultrasound of the thyroid: . N/A I independently reviewed the images and discussed them with the patient. I do agree with the interpretation. Surgeries: -None with Lynch Pathology: -12/02/23: Larynx, biopsy, left mass: Invasive squamous cell carcinoma, well to moderately differentiated Tumor Board recommendations: -[] Allergies: Allergies Allergen Reactions Penicillins Hives and [...] ARTERY BYPASS GRAFT N/A CABG (CABG) from [facility] KNEE SURGERY N/A Knee Surgery from [facility] SHOULDER SURGERY N/A Shoulder Surgery from [facility] Family history: reviewed and noncontributory Family History Problem Relation Name Age of Onset Conversions - Other Sister Accident Conversions - Other Brother Accident Arthritis Other Diabetes Mother Gout Father Conversions - Other Other herpes zoster infection Other cancer Other Heart attack Mother Social history: The patient has been smoking [] pack/day for [] years and has a [] pack/year history, does not drink or use any illicit drugs. Social Determinants of Health Food Insecurity: Not on file Alcohol Use: Not on file Housing Stability: Not on file Tobacco Use: High Risk (12/08/2023) Patient History Smoking Tobacco Use: Every Day Smokeless Tobacco Use: Never Passive Exposure: Not on file Transportation Needs: Not on file Depression: Not on file Utilities: Not on file Stress: Not on file Intimate Partner Violence: Not on file Physical Activity: Not on file Social Connections: Not on file Financial Resource Strain: Not on file PHYSICAL EXAMINATION: Visit Vitals BP 113/70 (BP Location: Right arm) Pulse 70 Temp 36.6 ??C (97.9 ??F) (Oral) Ht 1.854 m (6' 1 ) Wt 74 kg (163 lb 2.3 oz) SpO2 98% BMI 21.52 kg/m?? General: alert and oriented x3; no [...] of respiration PROCEDURE PERFORMED: Fiberoptic Flexible Laryngoscopy INDICATION: Larynx cancer DESCRIPTION OF PROCEDURE: After [...] are be drained with the uninvolved. IMPRESSION: [id number] supraglottic squamous cell carcinoma. Patient also has bilateral parotid masses. We discussed primary surgery versus primary chemoradiation length today. He and his family favor proceeding with total laryngectomy, bilateral neck dissection, and primary closure as recommended followed by possible radiation pending his pathology results. CT, referral to thoracic surgery for PEG tube placement, preop labs, tumor Board referral, and ultrasound-guided FNA of the right parotid mass were ordered today. With regards to his smoking, he states that he is going to quit today and will not continue and we discussed risk of disease recurrence at length he continues to smoke. Ideally he would receive his PEG tube prior to his laryngectomy, and begin tube feeds prior to his procedure. We will work on this. He will need preop anesthesia clearance given his significant cardiac, and pulmonary history. - CT neck with contrast demonstrates 0.8cm pulmonary nodule and mildly enlarged mediastinal nodes. Will ask Dr. Zuniga if he is able to access one of these lesions during upcoming PEG placement. 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 Will obtain plasma metanephrines, renin, and aldosterone levels prior to surgical intervention. As part of workup. I discussed those findings with the patient and I answered his questions to the best of my ability. I independently reviewed all the records available to me and summarized my findings in this note. *Digital speech recognition software was used to dictate this note and, despite all efforts to proofread, some dictation errors may occur. If you have any questions, please do not hesitate to contactme. Aris Lynch MD, FACS [facility] Surgical Oncology, Thyroid/Parathyroid Surgery, Transoral Robotic Surgery, and Microvascular Reconstruction Department of Otolaryngology - Division of Head & Neck Surgery [facility] - Head, Neck, & Respiratory Clinic [facility] Cosigned by Aris Lynch MD at 12/10/2023 12:26 PM EST Associated attestation - Aris Lynch MD - 12/10/2023 12:26 PM EST I saw and evaluated the patient with the resident/fellow. I discussed the case with the resident/fellow and agree with the findings and plan as documented. 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) Severe protein-calorie malnutrition (CMS/HCC) Parotid mass Expected: 12/08/2023, Expires: 06/07/2025 Ambulatory referral to Anesthesiology Outpatient Referral Routine 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) Severe protein-calorie malnutrition (CMS/HCC) Cigarette nicotine dependence with nicotine-induced disorder Type 2 diabetes mellitus without complication, without long-term current use of insulin (CMS/HCC) Parotid mass Expected: 12/08/2023, Expires: 06/07/2025 documented as of this encounter Procedures Procedure Name Priority Date/Time Associated Diagnosis Comments PROTHROMBIN TIME(PT) / INR Routine 12/08/2023 10:08 AM EST 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) Severe protein-calorie malnutrition (CMS/HCC) Parotid mass CBC WITH AUTO DIFFERENTIAL Routine 12/08/2023 10:08 AM EST 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) Severe protein-calorie malnutrition (CMS/HCC) Parotid mass TYPE AND SCREEN Routine 12/08/2023 10:08 AM EST 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) Severe protein-calorie malnutrition (CMS/HCC) Parotid mass TSH Routine 12/08/2023 10:08 AM EST 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) Severe protein-calorie malnutrition (CMS/HCC) Parotid mass COMPREHENSIVE METABOLIC PANEL, PLASMA Routine 12/08/2023 10:08 AM EST 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) Severe protein-calorie malnutrition (CMS/HCC) Parotid mass documented in this encounter Results * US Guided Fine Needle Aspiration (12/23/2023 [...] MD IMG US PROCEDURES Final Result * CT Chest w IV Contrast (12/08/2023 [...] MD IMG CT PROCEDURES Final Result * Prothrombin Time/INR (12/08/2023 10:08 AM EST) Prothrombin Time 13.4 12.0 - 14.3 sec LAB COAGULATION METHOD 12/08/2023 10:58 AM EST [facility] INR 1.0 0.9 - 1.1 LAB COAGULATION METHOD 12/08/2023 10:58 AM EST [facility] Blood Venous blood specimen / Unknown Venipuncture / Unknown 12/08/2023 10:08 AM EST 12/08/2023 10:38 AM EST Narrative [facility] - 12/08/2023 10:58 AM EST OPTIMAL INR RANGES FOR PATIENT ON ORAL ANTICOAGULANT THERAPY Prevention of venous thromboembolism ?INR 2.0 to 3.0 In patients with heart disease: Atrial fibrillation ?INR 2.0 to 3.0 Valvular heart disease ? INR 2.0 to 3.0 Tissue heart valves ?INR 2.0 to 3.0 Mechanical prosthetic valves ? INR 2.5 to 3.5 Prevention of recurrent PR ? INR 2.5 to 3.5 Aris Lynch MD LAB BLOOD ORDERABLES Final Res ult [facility] [address] [place] [address] * Type and Screen (12/08/2023 10:08 AM EST) ABO/Rh B Positive 12/08/2023 10:04 AM EST [facility] Antibody Screen Negative 12/08/2023 10:04 AM EST [facility] Specimen Expiration 12/11/2023 23:59 12/08/2023 10:04 AM EST [facility] Blood Venous blood specimen / Unknown Venipuncture / Unknown 12/08/2023 10:08 AM EST 12/08/2023 10:37 AM EST us Aris Lynch MD LAB BLOOD BANK TEST ORDERABLES Final Result Performing Organization Address [facility]/ZIP Co de Phone Number BLOOD BANK [address] * Thyroid Stimulating Hormone, Plasma (12/08/2023 10:08 AM EST) Thyroid Stimulating Hormone, Plasma 1.52 0.40 - 4.20 uIU/mL 12/08/2023 11:27 AM EST [facility] Blood Venous blood specimen / Unknown Venipuncture / Unknown 12/08/2023 10:08 AM EST 12/08/2023 10:38 AM EST us Aris Lynch MD LAB BLOOD ORDERABLES Final Res [facility] [address] [place] [address] * Comprehensive Metabolic Panel, Plasma (12/08/2023 10:08 AM EST) Glucose, Plasma 93 74 - 99 mg/dL 12/08/2023 11:27 AM EST [facility] BUN, Plasma 16 8 - 23 mg/dL 12/08/2023 11:27 AM EST [facility] Creatinine, Plasma 0.96 0.80 - 1.30 mg/dL 12/08/2023 11:27 AM EST [facility] BUN/Creatinine Ratio 17 12/08/2023 11:27 AM EST [facility] Sodium, Plasma 139 136 - 145 mmol/L 12/08/2023 11:27 AM EST [facility] Potassium, Plasma 4.4 3.7 - 4.8 mmol/L 12/08/2023 11:27 AM EST [facility] Chloride, Plasma 100 97 - 107 mmol/L 12/08/2023 11:27 AM EST [facility] CO2, Plasma 28 22 - 29 mmol/L 12/08/2023 11:27 AM EST [facility] Anion Gap 11 6 - 16 mmol/L 12/08/2023 11:27 AM EST [facility] Total Calcium, Plasma 9.6 8.9 - 10.2 mg/dL 12/08/2023 11:27 AM EST [facility] Total Protein 7.3 6.3 - 7.9 g/dL 12/08/2023 11:27 AM EST [facility] Albumin, Plasma 4.1 3.5 - 5.2 g/dL 12/08/2023 11:27 AM EST [facility] AST, Plasma 16 10 - 50 U/L 12/08/2023 11:27 AM EST [facility] ALT, Plasma 14 10 - 50 U/L 12/08/2023 11:27 AM EST [facility] Alkaline Phosphatase, Plasma 103 40 - 115 U/L 12/08/2023 11:27 AM EST [facility] Total Bilirubin, Plasma 0.4 0.2 - 1.1 mg/dL 12/08/2023 11:27 AM EST [facility] eGFRcr 81.4 mL/min/1.7 3m*2 12/08/2023 11:27 AM EST [facility] Comment:Reported eGFRcr in m L/min/1.73m2 is based the CKD-EPI 2020 equation that does not use a race coefficient. Blood Venous blood specimen / Unknown Venipuncture / Unknown 12/08/2023 10:08 AM EST 12/08/2023 10:38 AM EST us Aris Lynch MD LAB BLOOD ORDERABLES Final Res ult [facility] [address] [place] [address] * (ABNORMAL) CBC and Differential (12/08/2023 10:08 AM EST) WBC Count 11.06(H) 3.70 - 10.30 10*3/uL LAB HEMATOLOGY METHOD 12/08/2023 10:48 AM [facility] RBC Count 4.59(L) 4.60 - 6.10 10*6/uL LAB HEMATOLOGY METHOD 12/08/2023 10:48 AM [facility] HGB 13.7 13.7 - 17.5 g/dL LAB HEMATOLOGY METHOD 12/08/2023 10:48 AM [facility] HCT 41.3 40.0 - 51.0 % LAB HEMATOLOGY METHOD 12/08/2023 10:48 AM [facility] Platelet Count 222 155 - 369 10*3/uL LAB HEMATOLOGY METHOD 12/08/2023 10:48 AM [facility] MCV 90 79 - 98 fL LAB HEMATOLOGY METHOD 12/08/2023 10:48 AM [facility] MCH 29.8 26.0 - 32.0 pg LAB HEMATOLOGY METHOD 12/08/2023 10:48 AM [facility] MCHC 33.2 30.7 - 35.5 g/dL LAB HEMATOLOGY METHOD 12/08/2023 10:48 AM [facility] RDW 13.3 11.5 - 14.5 % LAB HEMATOLOGY METHOD 12/08/2023 10:48 AM [facility] MPV 10.2 8.8 - 12.5 fL LAB HEMATOLOGY METHOD 12/08/2023 10:48 AM [facility] nRBC 0.0 <=0.0 per 100 WBCs LAB HEMATOLOGY METHOD 12/08/2023 10:48 AM [facility] Differential Type Automated LAB HEMATOLOGY METHOD 12/08/2023 10:48 AM [facility] Neutrophils % 67.0 % LAB HEMATOLOGY METHOD 12/08/2023 10:48 AM [facility] Lymphocytes % 24.0 % LAB HEMATOLOGY METHOD 12/08/2023 10:48 AM [facility] Monocytes % 6.0 % LAB HEMATOLOGY METHOD 12/08/2023 10:48 AM [facility] Eosinophils % 2.0 % LAB HEMATOLOGY METHOD 12/08/2023 10:48 AM [facility] Basophils % 0.0 % LAB HEMATOLOGY METHOD 12/08/2023 10:48 AM [facility] Immature Granulocytes % 1.0 % LAB HEMATOLOGY METHOD 12/08/2023 10:48 AM [facility] Neutrophils Absolute 7.38(H) 1.60 - 6.10 10*3/uL LAB HEMATOLOGY METHOD 12/08/2023 10:48 AM EST [facility] Lymphocytes Absolute 2.68 1.20 - 3.90 10*3/uL LAB HEMATOLOGY METHOD 12/08/2023 10:48 AM EST [facility] Monocytes Absolute 0.67 0.30 - 0.90 10*3/uL LAB HEMATOLOGY METHOD 12/08/2023 10:48 AM EST [facility] Eosinophils Absolute 0.23 0.00 - 0.50 10*3/uL LAB HEMATOLOGY METHOD 12/08/2023 10:48 AM EST [facility] Basophils Absolute 0.04 0.00 - 0.10 10*3/uL LAB HEMATOLOGY METHOD 12/08/2023 10:48 AM EST [facility] Immature Granulocytes Absolute 0.06 0.00 - 0.06 10*3/uL LAB HEMATOLOGY METHOD 12/08/2023 10:48 AM EST [facility] Blood Venous blood specimen / Unknown Venipuncture / Unknown 12/08/2023 10:08 AM EST 12/08/2023 10:38 AM EST Narrative [facility] - 12/08/2023 10:48 AM EST Therapeutic decision making should be based on absolute values, rather than percentages. 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) Malignant neoplasm of supraglottis Cigarette nicotine dependence with nicotine-induced disorder Type 2 diabetes mellitus without complication, without long-term current use of insulin (CMS/HCC) Parotid mass Swelling, mass, or lump in head and neck Pharyngoesophageal dysphagia Dysphagia, pharyngoesophageal phase 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) Malignant neoplasm of supraglottis Parotid mass- Primary Swelling, mass, or lump in head and neck 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) Malignant neoplasm of supraglottis Severe protein-calorie malnutrition (CMS/HCC) Other severe protein-calorie malnutrition documented in this encounter Additional Health Concerns Assessment Noted Time A fall risk assessment has been complete d for the patient 12/08/2023 7:52 AM EST documented as of this encounter Care Teams Director Global Development Relationship Specialty Start Date End Date Pcp, No [address] [place] [address] PCP - General Family Medicine 12/08/23 12/22/23 Efrain Sarah MD [address] [place] [address] 12/02/23 Aris Lynch MD 800 [facility] [address] [id number] Surgeon Otolaryngology 12/02/23 documented as of this encounter
--- OUTSIDE RECORDS SUMMARY | 2024-10-04 19:06 | XMS_ITS ---
Laboratory report Created on: September 02, 2024 KORYAngelika ANN MARIE : 1945 Sex: Male Author Name JER METZGER Organization Unknown PROBLEMS Problems List Code Description E11.65 E78.2 I10 Z12.5 D51.8 RESULTS Laboratory Orders Date Order Code Test 2023-09-29 690649 CBC WITH DIFFERE NTIAL/PLATELET 2023-09-29 932438 COMP. METABOLIC PANEL (14) 2023-09-29 263605 LIPID PANEL 2023-09-29 775315 PSA TOTAL+% FREE 2023-09-29 883474 VITAMIN B12 AND FOLATE 2023-09-29 680905 HEMOGLOBIN A1C Laboratory Results Date LOINC Test Value Unit Reference Range Interpre tation 2023-09-29 6690-2 WBC 10.5 X10E3/UL 3.4-10.8 2023-09-29 789-8 RBC 4.77 X10E6/UL 4.14-5.80 2023-09-29 718-7 HEMOGLOBIN 14.3 G/DL 13.0-17.7 2023-09-29 4544-3 HEMATOCRIT 42.3 % 37.5-51.0 2023-09-29 787-2 MCV 89 FL 79-97 2023-09-29 785-6 MCH 30 PG 26.6-33.0 2023-09-29 786-4 MCHC 33.8 G/DL 31.5-35.7 2023-09-29 788-0 RDW 14.1 % 11.6-15.4 2023-09-29 777-3 PLATELETS 199 X10E3/UL 132-012 8993-11-29 770-8 NEUTROPHILS 66 % 2023-09-29 736-9 LYMPHS 27 % 2023-09-29 5905-5 MONOCYTES 5 % 2023-09-29 713-8 EOS 2 % 2023-09-29 706-2 BASOS 0 % 2023-09-29 751-8 NEUTROPHILS (ABSOLUTE) 6.9 X10E3/UL 1.4-7.0 2023-09-29 731-0 LYMPHS (ABSOLUTE) 2.9 X10E3/UL 0.7-3.1 2023-09-29 742-7 MONOCYTES(ABSOLUTE) .6 X10E3/UL 0.1-0.9 2023-09-29 711-2 EOS (ABSOLUTE) .2 X10E3/UL 0.0-0.4 2023-09-29 704-7 BASO (ABSOLUTE) 0 X10E3/UL 0.0-0.2 2023-09-29 73645-9 IMMATURE GRANULOCYTES 0 % 2023-09-29 35623-2 IMMATURE GRANS (ABS) 0 X10E3/UL 0.0-0.1 2023-09-29 2345-7 GLUCOSE 100 MG/DL 70-99 H 2023-09-29 3094-0 BUN 14 MG/DL 8-27 2023-09-29 2160-0 CREATININE 1 MG/DL 0.76-1.27 2023-09-29 45203-1 EGFR 78 ML/MIN/1.7 3 >59 2023-09-29 3097-3 BUN/CREATININE RATIO 14 10-24 2023-09-29 2951-2 SODIUM 139 MMOL/L 795-794 0441-11-29 2823-3 POTASSIUM 4.3 MMOL/L 3.5-5.2 2023-09-29 2075-0 CHLORIDE 97 MMOL/L 96-106 2023-09-29 2028-9 CARBON DIOXIDE, TOTAL 26 MMOL/L -2023-09-29 33016-7 CALCIUM 9.5 MG/DL 8.6-10.2 2023-09-29 2885-2 PROTEIN, TOTAL 7.3 G/DL 6.0-8.5 2023-09-29 1751-7 ALBUMIN 4.5 G/DL 3.8-4.8 2023-09-29 01407-0 GLOBULIN, TOTAL 2.8 G/DL 1.5-4.5 2023-09-29 1759-0 A/G RATIO 1.6 1.2-2.2 2023-09-29 1975-2 BILIRUBIN, TOTAL .4 MG/DL 0.0-1.2 2023-09-29 6768-6 ALKALINE PHOSPHATASE 102 IU/L 44-121 2023-09-29 1920-8 AST (SGOT) 9 IU/L 0-40 2023-09-29 1742-6 ALT (SGPT) 14 IU/L 0-44 2023-09-29 2093-3 CHOLESTEROL, TOTAL 202 MG/DL 100-199 H 2023-09-29 2571-8 TRIGLYCERIDES 145 MG/DL 0-149 2023-09-29 2085-9 HDL CHOLESTEROL 30 MG/DL >39 L 2023-09-29 23719-5 VLDL CHOLESTEROL TIMOTHY 27 MG/DL 5-40 2023-09-29 25728-6 LDL CHOL CALC (NIH) 145 MG/DL 0-99 H 2023-09-29 2857-1 PROSTATE SPECIFIC AG 2.7 NG/ML 0.0-4.0 2023-09-29 35972-3 PSA, FREE .51 NG/ML N/A 2023-09-29 62376-2 % FREE PSA 18.9 % 2023-09-29 2132-9 VITAMIN B12 292 PG/ML 232-1245 2023-09-29 2284-8 FOLATE (FOLIC AC ID), SERUM 9 NG/ML >3.0 2023-09-29 4548-4 HEMOGLOBIN A1C 5.7 % 4.8-5.6 H
[2024-10-04 19:10] LABS: Albumin Level 3.8 g/dl (3.5-5.0); Chloride 97 mmol/L (98-107); Potassium 3.5 mmoL/L (3.5-5.1); Sodium 139 mmol/L (136-145)
[2024-10-04 19:12] LABS: Blood Urea Nitrogen 18 mg/dl (9-20)
[2024-10-04 19:13] LABS: Alanine Aminotransferase 27 U/L (12-78); Albumin/Globulin Ratio 1.1 (1.1-1.8); Alkaline Phosphatase 162 U/L (38-126); Anion Gap 14.5 mEq/L (5-15); Aspartate Amino Transferase 31 U/L (17-59); Bilirubin,Total 0.7 mg/dl (0.2-1.3); Carbon Dioxide 31 mmol/L (22.0-30.0); Creatinine Clearance Estimated 62 mL/min (50-200); Estimated Glomerular Filt Rate 65 ml/min (>60); GFR (African American) 78 ML/MIN (>60); Globulin 3.6 g/dL (1.3-3.2); Glucose 147 mg/dl (74-100); Total Protein,Serum 7.4 g/dl (6.3-8.2)
[2024-10-04 19:14] LABS: Magnesium 1.8 mg/dl (1.6-2.3)
[2024-10-04 19:22] LABS: NT Pro Brain Natriuretic Pep. 910 pg/mL (0-450)
[2024-10-04] MEDS: SODIUM CHLORIDE 0.9% 10ML SYR (RAD ONLY) 10 ML IV (19:37)
[2024-10-04] MEDS: IOPAMIDOL-300 (61%) 100ML VIAL 100 ML IV (19:37)
[2024-10-04] MEDS: 0.9 % SODIUM CHLORIDE 1000ML 1,000 ML 999 ML IV (20:26)
[2024-10-04] MEDS: MAGNESIUM OXIDE 400MG TABLET 800 MG PO (20:42)
--- NOTE | 2024-10-04 20:52 | XR_ITS ---
PROCEDURE INFORMATION: Exam: XR Chest Exam date and time: 10/04/2024 8:51 PM Age: 79 years old Clinical indication: Other: Hypoxemia TECHNIQUE: Imaging protocol: Radiologic exam of the chest. Views: 1 view. COMPARISON: CT CHEST WO CON 04/27/2022 3:00 PM FINDINGS: Tubes, catheters and devices: Left chest wall cardiac pacing device. Lungs: Emphysema. Mild strandy bibasilar opacities. Chronic blunting of the left lateral costophrenic angle. Pleural spaces: No large pleural effusion. No pneumothorax. Heart/Mediastinum: No cardiomegaly. Calcified atherosclerotic changes of the thoracic aorta. Bones/joints: Median sternotomy. IMPRESSION: Mild strandy bibasilar opacities likely representing atelectasis and/or scarring, although infection cannot be excluded.
[2024-10-04 21:07] LABS: Adenovirus,PCR Not Detected (NotDetected); Bordetella Pertussis Not Detected (NotDetected); Chlamydophila Pneumoniae, PCR Not Detected (NotDetected); Coronavirus 19, PCR Not Detected (NotDetected); Coronavirus 229E Not Detected (NotDetected); Coronavirus NL63 Not Detected (NotDetected); Coronavirus OC43 Not Detected (NotDetected); Coronovirus HKU1,PCR Not Detected (NotDetected); Human Metapneumovirus Not Detected (NotDetected); Influenza A, PCR Not Detected (NotDetected); Influenza AH1, 2009 Not Detected (NotDetected); Influenza AH1, PCR Not Detected (NotDetected); Influenza AH3,PCR Not Detected (NotDetected); Influenza B, PCR Not Detected (NotDetected); Mycoplasma Pneumoniae, PCR Not Detected (NotDetected); Parainfluenza 1, PCR Not Detected (NotDetected); Parainfluenza 2, PCR Not Detected (NotDetected); Parainfluenza 3, PCR Not Detected (NotDetected); Parainfluenza 4, PCR Not Detected (NotDetected)
[2024-10-04 21:14] LABS: HIV (1&2) Antibody Rapid NONREACTIVE (NONREACTIVE)
[2024-10-04 22:03] VITALS: BP 104/62; PULSE 70; RESP 20; TEMP 36.6; O2SAT 92
[2024-10-04 22:16] VITALS: PULSE 70; PULSE 74
[2024-10-04] MEDS: IPRATROPIUM/ALBUTEROL 3 ML NEB IH (22:16)
[2024-10-04] MEDS: DEXAMETHASONE 4MG/ML 5ML MDV 10 MG IV (22:19)
[2024-10-04] MEDS: LACTATED RINGERS 1000ML 1,000 ML 75 ML IV (22:20)
[2024-10-04 22:25] VITALS: BP 104/62; PULSE 70; RESP 17; TEMP 36.6; O2SAT 93; BMI 25.0
--- NOTE | 2024-10-04 22:39 | P.HP_ITS ---
<Statement entered by Jeremiah Westbrook MD - 10/08/24 14:26> I personally evaluated patient and agree with plan of care as outlined by COOPERATIVE EDUCATION COORDINATOR below. History of Present Illness *Admission Date: 10/04/24 *Reason for visit:: Syncope with collapse at home *History of present illness: This patient is a 79-year-old . [facility] due to the emergency room being extremely overloaded and not having a beds at present time. This patient did fall at home and per his his son had not caught him he would have hit the floor face first. Apparently they were able to catch him and lowered him to the floor without any physical injury. Patient is noted for having esophageal cancer mets to the lungs liver being treated for that., Patient is a current smoker with no plans to stop. Per the ER provider documentation: Patient presents for evaluation of near syncope. Patient was apparently ambulating from the bathroom where he had just taken some Robitussin and felt dizzy and lightheaded. Family members were able to assist him to a chair so he did not actually fall or pass out. Patient states he felt very short of breath. He denies chest pain fever chills hemoptysis hematochezia melena nausea vomiti ng diarrhea. He does not report any recent illness. Patient does however have a history of COPD that is not currently oxygen dependent but was in the past according the patient he is not sure why his oxygen was taken away. 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 He is currently undergoing oncology treatment in [facility]. His last treatment was approximately 2 weeks ago. As noted ER physician did call the [facility] but there was no acceptance at this time., Patient could be in the ER for an extended period of time so after the ER physician talked with me I do feel it is prudent for patient's safety plus we can continue any treatment by placing him on the floor. I have talked with him and his about his condition, he understands that it is serious. He has no plans to stop smoking but wants to be a full code. He him and his noted that she is the POA and she would make a decision about his condition if that ever happened after 48 hours as per their agreement with each other. [facility] Disclaimer: The information contained in this section may have been updated after the patient was seen, as this information can be updated by other users. Medical History (Updated 10/04/24 @ 22:56 by Monty Castle APRN) Thyroid cancer Lung cancer Cancer of kidney Diabetes mellitus Hyperlipidemia Hypertension Cardiac pacemaker in situ PAF (paroxysmal atrial fibrillation) Chest pressure Bilateral leg pain Atypical angina Abnormal cardiovascular stress test Dyspnea Tobacco dependence syndrome PAC (premature atrial contraction) Sinus bradycardia Abnormal electrocardiography CAD (coronary artery disease) Surgical History H/O arthroscopy of right knee Hx of CABG Family History Other Diabetes Social History Smoking Status: Current every day smoker tobacco type: cigarettes packs per day: 1 second hand exposure: Yes alcohol intake: never substance use type: denies use current occupational status: retired and disabled Travel in the last 8 weeks: None household members: spouse housing: house current occupational exposures/hazards: No Other Medical History Have you received the Flu Vaccine for this season: Yes Have you received the Pneumonia Vaccine: Yes Review of Systems Review of Systems Review of systems:: pertinent systems reviewed and negative unless documented below Constitutional Constitutional: Reports as per HPI, Reports lethargy and Reports weakness Eyes Eyes: Reports as per HPI Comments: Denies any issue with his vision ENT Ears, Nose, Mouth, and Throat: Reports as per HPI Comments: Patient denies any problems swallowing food or drinking liquid *Cardiovascular Cardiovascular: Reports as per HPI and Reports dyspnea on exertion *Respiratory Respiratory: Reports dyspnea on exertion Comments: Patient is a chronic smoker for more than 70 years started at age 9 *Gastrointestinal Gastrointestinal: Reports as per HPI *Genitourinary Genitourinary: Reports as per HPI *Musculoskeletal Musculoskeletal: Reports as per HPI, Reports muscle weakness and Reports myalgias Integumentary/Breasts Skin/Breast: Reports as per HPI *Neurologic Neurologic: Reports as per HPI and Reports weakness Comments: Found no obvious neurological deficits he able to move both extremities well. But I did not stand him during the exam in the emergency room, but have placed orders that he is only to be up with assistance Psychiatric Psychiatric: Reports as per HPI Endocrine Endocrine: Reports as per HPI Hematologic/Lymphatic Hematologic/Lymphatic: Reports as per HPI Allergic/Immunologic Allergic/Immunologic: Reports as per HPI Meds Home Medications and Allergies Home Medications ?Medication ?Instructions ?Recorded ?Confirmed ?Type cetirizine 10 mg tablet 10 mg PO DAILY Allergy symptoms 05/08/20 08/29/24 History aspirin 81 mg tablet,delayed 81 mg PO DAILY heart health 05/08/21 10/04/24 History release apixaban 5 mg tablet (Eliquis) 5 mg PO BID ATRIAL FIBRILLATION 05/16/21 08/29/24 History albuterol sulfate 90 mcg/actuation 2 inh inhalation 12/16/21 08/29/24 History aerosol inhaler (ProAir HFA) metformin 750 mg tablet,extended 750 mg PO DAILY 01/19/22 10/04/24 History release 24 hr blood sugar diagnostic (Accu-Chek #10 ea 06/23/22 08/29/24 History Guide test strips) fluticasone fur. 200 mcg-umeclid 1 inh inhalation DAILY 06/23/22 08/29/24 History 62.5 mcg-vilant 25 mcg inhalat.powder (Trelegy Ellipta) lancets (Accu-Chek Softclix #100 ea 06/23/22 08/29/24 History Lancets) dulaglutide 1.5 mg/0.5 mL 1.5 mg (0.5 mL) SQ WEEKLY 90 days 07/30/23 10/04/24 Rx subcutaneous [facility]6.[facility]) cholecalciferol (vitamin D3) 50 PO 09/30/23 08/29/24 History mcg (2,000 unit) capsule furosemide 40 mg tablet See Rx Instructions .Route 06/12/24 08/29/24 Rx .COMPLEX #45 tabs atorvastatin 40 mg tablet 80 mg PO DAILY 08/29/24 10/04/24 History losartan 50 mg tablet 50 mg PO ONCE 08/29/24 10/04/24 History ondansetron HCl 4 mg tablet 4 mg PO Q6H PRN 08/29/24 08/29/24 History tamsulosin 0.4 mg capsule 0.4 mg PO ONCE 08/29/24 10/04/24 History magnesium oxide 400 mg PO DAILY #30 caps 10/04/24 Rx New Prescriptions to Start Prescriptions: magnesium oxide [facility] Allergies Allergy/AdvReac Type Severity Reaction Status Date / Time Penicillins Allergy Hives Verified 08/29/24 10:38 Exam Data for Last 24 hours Vital signs and Labs for Last 24 Hours: Temp Pulse Resp BP Pulse Ox O2 Del Method 98 F 70 17 104/62 L 93 L Room Air 10/04/24 22:25 10/04/24 22:25 10/04/24 22:25 10/04/24 22:25 10/04/24 22:25 10/04/24 22:25 Laboratory Results - last 24 hr 10/04/24 18:30: WBC 11.2 H, RBC 4.83, Hgb 14.6, Hct 43.7, MCV 90.3, MCH 30.1, MCHC 33.4, RDW 13.9, Plt Count 314, MPV 7.7, Neut % (Auto) 70.1, Lymph % (Auto) 22.2, Whitley % (Auto) 5.9, Eos % (Auto) 1.1, Baso % (Auto) 0.6, Neut # (Auto) 7.8, Lymph # (Auto) 2.5, Whitley # (Auto) 0.7, Eos # (Auto) 0.1, Baso # (Auto) 0.1, Sodium 139, Potassium 3.5, Chloride 97 L, Carbon Dioxide 31 H, Anion Gap 14.5, BUN 18, Creatinine 1.10, Estimated Creat Clear 62, Estimated GFR 65, Est GFR ( Amer) 78, Glucose 147 H, Calcium 9.0, Magnesium 1.8, Total Bilirubin 0.7, AST 31, ALT 27, Alkaline Phosphatase 162 H, NT-Pro-B Natriuret Pep 910 H, Total Protein 7.4, Albumin 3.8, Globulin 3.6 H, Albumin/Globulin Ratio 1.1, HIV 1&2 Antibody Rapid Nonreactive I & O for Last 24 hours: Intake & Output 10/02/24 10/03/24 10/04/24 10/05/24 05:59 05:59 05:59 05:59 Weight 169 lb 1 oz Radiology Reports for the Last 24 Hours: Chest x-ray just showed mild stranding bibasilar question atelectasis versus early infection CT of the head there was no acute findings., Also noting pacemaker placed on the left on chest film Constitutional Constitutional: no acute distress, thin, chronically ill appearing and cooperative Comments: Patient is very friendly answering questions well is in no distress, is in room who can give little more history., Both seem to get along well we enjoyed our conversation together with a few laughs. *Routine HEENT Exam Head: Present normocephalic and atraumatic Eye: Present EOMI, PERRL and normal accommodation ENT: Present mucous membranes dry, nares patent, external ear normal and TM's clear bilaterally *Routine Neck Exam Neck: Present supple and full ROM Comments: Generalized chronic tenderness that is unchanged he has been worked up for this before as an outpatient Routine Chest/Breast/Axilla Exam Comments: The patient expressed no chest wall tenderness while I examined him even though he is a long-term smoker equal expansion of his chest on both sides *Routine Respiratory Exam Respiratory: Present CTA bilaterally, normal respiratory effort, able to speak in complete sentences and symmetric chest movement Comments: Patient on room air is able to talk freely. He talked about his smoking showed no sign of distress respiratory rate slightly elevated above 20, but he is in no distress from this. There was no cough while I was in the room *Routine Cardiovascular Exam Cardiovascular: Present RRR, Normal S1 and Normal S2 Comments: Pacemaker seen on lunchroom monitor nice regular rhythm. Heart sounds basically normal no significant murmurs heard *Routine Abdominal Exam Abdominal: Present soft and normoactive bowel sounds Comments: Abdomen is flat he is a very thin man but there was no tenderness to the abdomen *Routine Rectal Exam Rectal:: deferred *Routine Genitalia Exam Genitalia:: deferred *Routine Extremities Exam Extremities: Present tenderness Comments: Patient is able to move both his arms and legs without any difficulty. As noted he does have a lot of arthritis he has been worked up for the left knee pain in the past which did show spurring and degenerative joint disease Routine Back/Spine/Pelvis Exam Back/Spine: Present full ROM Comments: I was able to have the patient sit up without assistance he moved around did not appear to be in pain but I did not stand him during this exam *Routine Skin Exam Skin: Present intact and warm Comments: Skin kind of poor turgor he looks a little bit dry., But noted while I examined him did not completely undress him there was no lesions found no decubiti found. On talking with the patient he denies any heel or buttocks lesions.,, His confirmed this *Routine Neurological Exam Neurological: Present alert, oriented X3, CN II-XII intact, normal tone, vision grossly intact, hearing grossly intact and normal speech Comments: Even though he had a recent syncope I found no neurological deficit during my exam Routine Psychiatric Exam Psychiatric: Present normal affect, normal thought process, cooperative, good insight and good judgment Comments: Patient is very pleasant he understands that he has cancer he has no plans to quit smoking though that has been doing that since age 9 H&P: Result Impressions 1. Syncope with collapse without fall caught by family member 2. Diabetes mellitus 3. COPD long-term smoker no longer oxygen dependent but he did have oxygen in the past at home 4. Esophageal cancer metastasis to lung liver and other places. He is presently under treatment and receives chemo every 3 weeks from [facility] Chest x-ray: Status: image reviewed by me Additional comments: Mild stranding bibasilar but no significant signs of pneumonia CT scan - head: Status: image reviewed by me Additional comments: CT scan reviewed by myself and found no signs of bleed or fracture Assessment and Plan *Assessment and plan (1) Syncope and collapse: Status: Acute Category: Medical Code(s): R55 - Syncope and collapse (2) COPD (chronic obstructive pulmonary disease): Status: Chronic Qualifiers: COPD type: COPD with acute lower respiratory infection Qualified Code(s): J44.0 - Chronic obstructive pulmonary disease with (acute) lower respiratory infection Category: Medical Code(s): J44.9 - Chronic obstructive pulmonary disease, unspecified (3) Metastasis from esophageal cancer: Status: Acute Category: Medical Code(s): C79.9 - Secondary malignant neoplasm of unspecified site; C15.9 - Malignant neoplasm of esophagus, unspecified (4) Mass of larynx: Status: Acute Category: Medical Code(s): J38.7 - Other diseases of larynx (5) History of cardiac pacemaker in situ: Status: Acute Category: Medical Code(s): Z95.0 - Presence of cardiac pacemaker (6) Sick sinus syndrome: Status: Acute Category: Medical Code(s): I49.5 - Sick sinus syndrome (7) Diabetes mellitus: Status: Acute Qualifiers: Diabetes mellitus type: type 2 Diabetes mellitus custodial insulin use: with custodial use Diabetes mellitus complication status: with other specified complication Qualified Code(s): E11.69 - Type 2 diabetes mellitus with other specified complication; Z79.4 - [facility] (current) use of insulin Category: Medical Code(s): E11.9 - Type 2 diabetes mellitus without complications (8) Tobacco dependence syndrome: Status: Acute Category: Medical Code(s): F17.200 - Nicotine dependence, unspecified, uncomplicated (9) Hx of CABG: Status: Chronic Category: Surgical Code(s): Z95.1 - Presence of aortocoronary bypass graft Plan 1. As noted in history this patient is a [facility] but the [facility] was unable to accept him tonight. Stating their emergency room was full and that they did not have a bed available for him. For that reason we will admit him to the floor that he would not be kept for an extended period of time in the emergency room thus his underlying condition can be evaluated for this syncope with collapse. 2. COPD, with [id number] smoking by history. Monitor O2 saturation needs start DuoNebs., Monitor vital signs. At this time I see no need for antibiotics, but will continue to evaluate labs. 3. Patient has esophageal cancer that is mets to the lungs and the liver. Presently under chemotherapy treatment. Will monitor for any significant change in his physical status that may be related to cancer hormones are cancer causing some form of blockage or pressure on vessel or airway. 4. Plan to wait and continue to check with the [facility] when a bed may be available if he is still needing inpatient admission when the bed becomes available.
[2024-10-05] VITALS: BP 101/55; PULSE 70; RESP 18; TEMP 36.5; O2SAT 96
[2024-10-05 00:22] LABS: Respiratory Syncytial Virus Not Detected (NotDetected); Rhinovirus/Enterovirus Not Detected (NotDetected)
[2024-10-05 02:00] VITALS: PULSE 70
[2024-10-05 04:00] VITALS: BP 97/61; PULSE 70; PULSE 73; RESP 16; TEMP 36.7; O2SAT 92; BMI 25.4
[2024-10-05] MEDS: IPRATROPIUM/ALBUTEROL 3 ML NEB IH ×2 (05:25→11:03)
[2024-10-05 05:26] VITALS: PULSE 70; PULSE 89; O2SAT 98
[2024-10-05 06:49] LABS: Basophils % 0.2 % (0.1-2.0); Eosinophils % 0.1 % (0.1-12.0); Hematocrit 40.3 % (42.0-52.0); Hemoglobin 13.6 g/dL (14.1-18.0); Lymphocytes % 16.4 % (10-50); Mean Corpuscular HGB Conc 33.8 g/dL (31.8-35.4); Mean Corpuscular Hemoglobin 30.1 pg (27.0-31.2); Mean Platelet Volume 7.9 fl (7.4-10.4); Monocytes # 0.1 K/mm3 (0.1-1.0); Monocytes % 2.3 % (1.7-9.3); Neutrophils # 4.8 K/mm3 (1.8-7.8); Platelet Count 244 K/mm3 (142-424); Red Blood Count 4.53 M/mm3 (4.60-6.20); Red Cell Distribution Width 14.2 % (11.5-17.5); White Blood Count 5.9 K/mm3 (4.8-10.8)
[2024-10-05 06:59] LABS: Albumin Level 3.4 g/dl (3.5-5.0); Chloride 103 mmol/L (98-107); Potassium 3.6 mmoL/L (3.5-5.1); Sodium 138 mmol/L (136-145)
[2024-10-05 07:01] LABS: Alanine Aminotransferase 22 U/L (12-78); Aspartate Amino Transferase 28 U/L (17-59); Blood Urea Nitrogen 16 mg/dl (9-20); Creatinine Clearance Estimated 67 mL/min (50-200); Estimated Glomerular Filt Rate 82 ml/min (>60); GFR (African American) 99 ML/MIN (>60)
[2024-10-05 07:02] LABS: Albumin/Globulin Ratio 1.1 (1.1-1.8); Alkaline Phosphatase 176 U/L (38-126); Anion Gap 10.6 mEq/L (5-15); Bilirubin,Total 0.5 mg/dl (0.2-1.3); Calcium 8.7 mg/dl (8.4-10.2); Carbon Dioxide 28 mmol/L (22.0-30.0); Globulin 3.2 g/dL (1.3-3.2); Glucose 177 mg/dl (74-100); Magnesium 1.8 mg/dl (1.6-2.3); Total Protein,Serum 6.6 g/dl (6.3-8.2)
[2024-10-05 08:00] VITALS: BP 147/70; PULSE 100; PULSE 57; RESP 20; TEMP 36.7; O2SAT 96
[2024-10-05] MEDS: TAMSULOSIN 0.4MG CAPSULE 0.4 MG PO (08:08)
[2024-10-05] MEDS: APIXABAN 5MG TABLET 5 MG PO (08:08)
[2024-10-05] MEDS: DOCUSATE SODIUM 100 MG CAPSULE PO (08:08)
[2024-10-05] MEDS: ASPIRIN EC 81MG TABLET 81 MG PO (08:08)
[2024-10-05] MEDS: METFORMIN 500MG TABLET 750 MG PO (08:09)
--- NOTE | 2024-10-05 08:44 | HMH.PHAINT1 ---
Pharmacy Intervention Comments: HOME MEDICATIONS VERIFIED VIA OUTPATIENT AND PATIENT INTERVIEW
[2024-10-05 08:45] LABS: Thyroid Stimulating Hormone 0.72 uIU/mL (0.465-4.68)
--- NOTE | 2024-10-05 09:43 | HMH.PTEV ---
Physical Therapy Evaluation Rehab PT IP Evaluation Start: 10/05/24 07:47 Freq: ONCE Status: Active Protocol: Document 10/05/24 09:40 JAYLEN (Rec: 10/05/24 09:43 JAYLEN [id number]) Subjective/History History History Per H&P: This patient is a 79 -year-old . The ER physician [facility] the [facility] but the [facility] was unable to [facility] him due to the emergency room being extremely overloaded and not having a beds at present time. This patient did fall at home and per his his son had not caught him he would have hit the floor face first. Apparently they were able to catch him and lowered him to the floor without any physical injury. Patient is noted for having esophageal cancer mets to the lungs liver being treated for that. Patient is a current smoker with no plans to stop. Subjective Subjective Pt reports he lives in a single-story home with his , stepson, and grandson. Pt has a ramped entrance. Owns and uses an electric scooter, RW, and cane. IND with mobility and still driving prior to admission. New diagnosis of cancer in past 12 No months? Rehab PT IP Eval Objective Appearance Patient Behavior Appropriate,Cooperative Patient Orientation Person,Place Difficulty following instructions none Speech Pattern Clear Ambulation Patient Able to Ambulate Yes Ambulation Observation IP General Gait Pattern Observation No Deviations/Normal Ambulation Distance (feet) 30 Ambulation Assistive Device None Ambulation Ability Independent Balance Ability to Arise Able, uses arms to help Sitting Balance Steady, safe Standing Balance Steady, wide stance Dynamic Sitting Balance Ability Good Dynamic Standing Balance Ability Good Transfers Bed Transfer Ability Independent Sit to Stand Bed Transfer Ability Independent Rehab PT IP prob,goals,plan Problems Date of Evaluation: 10/05/24 Rehab Potential Rehab Potential Innapropriate for Skilled Therapy Discharge Plan PT Discharge Plan Pt safe to d/c home when deemed medically necessary d/t current level of mobility, home set-up, and family support. Pt not appropriate for skilled acute care PT at this time d/t pt?s mobility being at baseline. Eval Complexity Eval Charge Codes 33679 - Moderate Complexity PHYSICIAN CERTIFICATION: I certify the specified therapy services for Vamsi Rosey Shawnee are required, authorized, and reviewed every 30 days.
--- NOTE | 2024-10-05 09:44 | CARE MANAGER ---
Leatha Castle ordered are management consult stating that patient is a [facility] patient. Spoke with patient and verified he does not receive [facility] care at the [facility]. NICOLE Chapman
[2024-10-05 10:07] LABS: Vitamin B12 782 pg/mL (239-931)
--- NOTE | 2024-10-05 10:11 | HMH.OTEV ---
OT Inpatient Evaluation Rehab OT IP Evaluation Start: 10/05/24 07:47 Freq: ONCE Status: Active Protocol: Document 10/05/24 09:46 BISHOP (Rec: 10/05/24 10:10 BISHOP [id number]) Rehab OT IP Assessment Subjective History This patient is a 79-year-old . The ER physician did call the [facility] but the [facility] was unable to accept him due to the emergency room being extremely overloaded and not having a beds at present time. This patient did fall at home and per his his son had not caught him he would have hit the floor face first. Apparently they were able to catch him and lowered him to the floor without any physical injury. Patient is noted for having esophageal cancer mets to the lungs liver being treated for that., Patient is a current smoker with no plans to stop. Per the ER provider documentation: Patient presents for evaluation of near syncope. Patient was apparently ambulating from the bathroom where he had just taken some Robitussin and felt dizzy and lightheaded. Family members were able to assist him to a chair so he did not actually fall or pass out. Patient states he felt very short of breath. He denies chest pain fever chills hemoptysis hematochezia melena nausea vomiting diarrhea. He does not report any recent illness. Patient does however have a history of COPD that is not currently oxygen dependent but was in the past according the patient he is not sure why his oxygen was taken away. 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 He is currently undergoing oncology treatment in [facility]. His last treatment was approximately 2 weeks ago. As noted ER physician did call the [facility] but there was no acceptance at this time., Patient could be in the ER for an extended period of time so after the ER physician talked with me I do feel it is prudent for patient's safety plus we can continue any treatment by placing him on the floor. I have talked with him and his about his condition, he understands that it is serious. He has no plans to stop smoking but wants to be a full code. He him and his noted that she is the POA and she would make a decision about his condition if that ever happened after 48 hours as per their agreement with each other. Patient lives at home with and son. Patient independent with ADLs prior to hospitalization. Lives in 1 story apart with ramp to enter . Uses a RW/cane as needed. Will use scooter for outdoor purpose. Subjective I can get up. Analysis Patient' fx'l mobility, bed mobility and ADLs during initial evaluation . Patient completed task independently. No LOB noted. Objective Patient Orientation Person,Place,Name,Birthday Right Upper Extremity Gross ROM WFL Left Upper Extremity Gross ROM WFL Bed Mobility bed mobility - supine/sit Assist Level Independent Transfer Training Sit/Stand/Pivot Transfer Assist Level Independent Chair Transfer Ability Independent Chair Transfer Technique Sit to/from Ambulatory Rehab OT IP prob,goals,plan Problems Date of Evaluation: 10/05/24 Rehab Potential Rehab Potential Innapropriate for Skilled Therapy Discharge Plan OT Discharge Plan Patient appears to be at baseline this date. Recommend patient to return home with family after medical d/c. Eval Complexity Eval Charge Codes 46307 - Low Complexity PHYSICIAN CERTIFICATION: I certify the specified therapy services for Vamsi Rosey Shawnee are required, authorized, and reviewed every 30 days.
--- NOTE | 2024-10-05 10:24 | P.DS_ITS ---
General Admission date:: 10/04/24 HPI HPI HPI: This patient is a 79-year-old . The ER physician did call the [facility] but the [facility] was unable to accept him due to the emergency room being extremely overloaded and not having a beds at present time. This patient did fall at home and per his his son had not caught him he would have hit the floor face first. Apparently they were able to catch him and lowered him to the floor without any physical injury. Patient is noted for having esophageal cancer mets to the lungs liver being treated for that., Patient is a current smoker with no plans to stop. Per the ER provider documentation: Patient presents for evaluation of near syncope. Patient was apparently ambulating from the bathroom where he had just taken some Robitussin and felt dizzy and lightheaded. Family members were able to assist him to a chair so he did not actually fall or pass out. Patient states he felt very short of breath. He denies chest pain fever chills hemoptysis hematochezia melena nausea vomiting diarrhea. He does not report any recent illness. Patient does however have a history of COPD that is not currently oxygen dependent but was in the past according the patient he is not sure why his oxygen was taken away. 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 He is currently undergoing oncology treatment in [facility]. His last treatment was approximately 2 weeks ago. As noted ER physician did call the [facility] but there was no acceptance at this time., Patient could be in the ER for an extended period of time so after the ER physician talked with me I do feel it is prudent for patient's safety plus we can continue any treatment by placing him on the floor. I have talked with him and his about his condition, he understands that it is serious. He has no plans to stop smoking but wants to be a full code. He him and his noted that she is the POA and she would make a decision about his condition if that ever happened after 48 hours as per their agreement with each other. Hospital Course Hospital Course Hospital Course: Vamsi Mallory is a 79-year-old male with a medical history significant for metastatic esophageal carcinoma, COPD, type 2 diabetes, chronic tobacco use who presented after presyncope and falling at home. #Fall #Presyncope ? Patiently apparently took Robitussin about 30 minutes before fall, but did not hit the ground because he was caught by his son. He states he felt generalized weakness, denies chest pain, shortness of breath, dizziness. ? No further episodes here. Metabolic workup unremarkable, including CBC, CMP. TSH, B12, folate normal. No signs of infection. ? PT/OT evaluated patient, did not recommend further rehab. ? Vital signs have been stable. ? Medically stable to be discharged home. ? Will follow-up with PCP within 1 week. #Metastatic esophageal carcinoma ? Continue chemotherapy at [facility]. ? Continue Eliquis 5 mg twice daily. #Sick sinus syndrome #Paroxysmal A-fib ? S/p permanent pacemaker. ? Continue Eliquis 5 mg twice daily. Currently rate controlled. #COPD #Chronic tobacco use ? Continue albuterol as needed. #Type 2 diabetes ? Continue MounjaroSandrita, metformin. Exam Data for Last 24 hours Vital signs and Labs for Last 24 Hours: Temp Pulse Resp BP Pulse Ox O2 Del Method 98.0 F 57 L 20 147/70 H 96 Room Air 10/05/24 08:00 10/05/24 08:00 10/05/24 08:00 10/05/24 08:00 10/05/24 08:00 10/05/24 09:00 Laboratory Results - last 24 hr 10/04/24 18:30: WBC 11.2 H, RBC 4.83, Hgb 14.6, Hct 43.7, MCV 90.3, MCH 30.1, MCHC 33.4, RDW 13.9, Plt Count 314, MPV 7.7, Neut % (Auto) 70.1, Lymph % (Auto) 22.2, [place] % (Auto) 5.9, Eos % (Auto) 1.1, Baso % (Auto) 0.6, Neut # (Auto) 7.8, Lymph # (Auto) 2.5, [place] # (Auto) 0.7, Eos # (Auto) 0.1, Baso # (Auto) 0.1, Sodium 139, Potassium 3.5, Chloride 97 L, Carbon Dioxide 31 H, Anion Gap 14.5, BUN 18, Creatinine 1.10, Estimated Creat Clear 62, Estimated GFR 65, Est GFR ( Amer) 78, Glucose 147 H, Calcium 9.0, Magnesium 1.8, Total Bilirubin 0.7, AST 31, ALT 27, Alkaline Phosphatase 162 H, NT-Pro-B Natriuret Pep 910 H, Total Protein 7.4, Albumin 3.8, Globulin 3.6 H, Albumin/Globulin Ratio 1.1, HIV 1&2 Antibody Rapid Nonreactive 10/04/24 21:00: Chlamy pneumoniae PCR Not detected, Adenovirus (PCR) Not detected, B. pertussis DNA (PCR) Not detected, Coronavirus OC43 (PCR) Not detec carlos, Coronavirus HKU1 (PCR) Not detected, Coronavirus 229E (PCR) Not detected, SARS-CoV-2 (PCR) Not detected, Coronavirus NL63 (PCR) Not detected, Human Metapneumovir PCR Not detected, Influenza A (H1) PCR Not detected, Influ A (H1N1/09) PCR Not detected, Influenza A (H3) PCR Not detected, Influenza Type A (PCR) Not detected, Influenza Type B (PCR) Not detected, M. pneumoniae (PCR) Not detected, Parainfluenza 1 (PCR) Not detected, Parainfluenza 2 (PCR) Not detected, Parainfluenza 3 (PCR) Not detected, Parainfluenza 4 (PCR) Not detected, RSV (PCR) Not detected, Entero/Rhino (PCR) Not detected 10/05/24 06:15: WBC 5.9 D, RBC 4.53 L, Hgb 13.6 L, Hct 40.3 L, MCV 89.0, MCH 30.1, MCHC 33.8, RDW 14.2, Plt Count 244, MPV 7.9, Neut % (Auto) 81.0 H, Lymph % (Auto) 16.4, [place] % (Auto) 2.3, Eos % (Auto) 0.1, Baso % (Auto) 0.2, Neut # (Auto) 4.8, Lymph # (Auto) 1.0, [place] # (Auto) 0.1, Eos # (Auto) 0.0, Baso # (Auto) 0.0, Sodium 138, Potassium 3.6, Chloride 103, Carbon Dioxide 28, Anion Gap 10.6, BUN 16, Creatinine 0.90, Estimated Creat Clear 67, Estimated GFR 82, Est GFR ( Amer) 99 D, Glucose 177 H D, Calcium 8.7, Magnesium 1.8, Total Bilirubin 0.5, AST 28, ALT 22, Alkaline Phosphatase 176 H, Total Protein 6.6, Albumin 3.4 L D, Globulin 3.2, Albumin/Globulin Ratio 1.1, Vitamin B12 782, Folate 10.60, TSH 0.72, Free T4 1.10 I & O for Last 24 hours: Intake & Output 10/02/24 10/03/24 10/04/24 10/05/24 23:59 23:59 23:59 23:59 Intake Total 770 / 770 Output Total 300 / 300 Balance 470 / 470 Weight 76.685 kg 78.063 kg Constitutional Constitutional: no acute distress *Routine HEENT Exam Head: Present normocephalic Eye: Present EOMI and PERRL ENT: Present mucous membranes moist *Routine Neck Exam Neck: Present supple; Absent lymphadenopathy *Routine Respiratory Exam Respiratory: Present CTA bilaterally *Routine Cardiovascular Exam Cardiovascular: Present RRR *Routine Abdominal Exam Abdominal: Present soft and normoactive bowel sounds; Absent tenderness *Routine Extremities Exam Extremities: Absent cyanosis, clubbing or edema *Routine Skin Exam Skin: Present warm; Absent rash *Routine Neurological Exam Neurological: Present alert and oriented X3 Results Data Completed and Pending Labs on day of discharge: Labs from last 24 hours 10/05/24 10/04/24 10/04/24 06:15 21:00 18:30 WBC 5.9 D 11.2 H RBC 4.53 L 4.83 Hgb 13.6 L 14.6 Hct 40.3 L 43.7 MCV 89.0 90.3 MCH 30.1 30.1 MCHC 33.8 33.4 RDW 14.2 13.9 Plt Count 244 314 MPV 7.9 7.7 Neut % (Auto) 81.0 H 70.1 Lymph % (Auto) 16.4 22.2 [place] % (Auto) 2.3 5.9 Eos % (Auto) 0.1 1.1 Baso % (Auto) 0.2 0.6 Neut # (Auto) 4.8 7.8 Lymph # (Auto) 1.0 2.5 [place] # (Auto) 0.1 0.7 Eos # (Auto) 0.0 0.1 Baso # (Auto) 0.0 0.1 Sodium 138 139 Potassium 3.6 3.5 Chloride 103 97 L Carbon Dioxide 28 31 H Anion Gap 10.6 14.5 BUN 16 18 Creatinine 0.90 1.10 Estimated Creat Clear 67 62 Estimated GFR 82 65 Est GFR ( Amer) 99 D 78 Glucose 177 H D 147 H Calcium 8.7 9.0 Magnesium 1.8 1.8 Total Bilirubin 0.5 0.7 AST 28 31 ALT 22 27 Alkaline Phosphatase 176 H 162 H NT-Pro-B Natriuret Pep 910 H Total Protein 6.6 7.4 Albumin 3.4 L D 3.8 Globulin 3.2 3.6 H Albumin/Globulin Ratio 1.1 1.1 Vitamin B12 782 Folate 10.60 TSH 0.72 Free T4 1.10 Chlamy pneumoniae PCR Not detected Adenovirus (PCR) Not detected B. pertussis DNA (PCR) Not detected Coronavirus OC43 (PCR) Not detected Coronavirus HKU1 (PCR) Not detected Coronavirus 229E (PCR) Not detected SARS-CoV-2 (PCR) Not detected Coronavirus NL63 (PCR) Not detected HIV 1&2 Antibody Rapid Nonreactive Human Metapneumovir PCR Not detected Influenza A (H1) PCR Not detected Influ A (H1N1/09) PCR Not detected Influenza A (H3) PCR Not detected Influenza Type A (PCR) Not detected Influenza Type B (PCR) Not detected M. pneumoniae (PCR) Not detected Parainfluenza 1 (PCR) Not detected Parainfluenza 2 (PCR) Not detected Parainfluenza 3 (PCR) Not detected Parainfluenza 4 (PCR) Not detected RSV (PCR) Not detected Entero/Rhino (PCR) Not detected DS: Diagnosis Discharge Diagnosis (1) Syncope and collapse: Status: Acute Code(s): R55 - Syncope and collapse (2) COPD (chronic obstructive pulmonary disease): Status: Chronic Code(s): J44.9 - Chronic obstructive pulmonary disease, unspecified Qualifiers: COPD type: COPD with acute lower respiratory infection Qualified Code(s): J44.0 - Chronic obstructive pulmonary disease with (acute) lower respiratory infection (3) Metastasis from esophageal cancer: Status: Acute Code(s): C79.9 - Secondary malignant neoplasm of unspecified site; C15.9 - Malignant neoplasm of esophagus, unspecified (4) Mass of larynx: Status: Acute Code(s): J38.7 - Other diseases of larynx (5) History of cardiac pacemaker in situ: Status: Acute Code(s): Z95.0 - Presence of cardiac pacemaker (6) Sick sinus syndrome: Status: Acute Code(s): I49.5 - Sick sinus syndrome (7) Diabetes mellitus: Status: Acute Code(s): E11.9 - Type 2 diabetes mellitus without complications Qualifiers: Diabetes mellitus type: type 2 Diabetes mellitus terminal press operator insulin use: with longterm use Diabetes mellitus complication status: with other specified complication Qualified Code(s): E11.69 - Type 2 diabetes mellitus with other specified complication; Z79.4 - shelter (current) use of insulin (8) Tobacco dependence syndrome: Status: Acute Code(s): F17.200 - Nicotine dependence, unspecified, uncomplicated (9) Hx of CABG: Status: Chronic Code(s): Z95.1 - Presence of aortocoronary bypass graft Meds Home Medications and Allergies Home Medications ?Medication ?Instructions ?Recorded ?Confirmed ?Type cetirizine 10 mg tablet 10 mg PO DAILY 05/08/20 10/05/24 History aspirin 81 mg tablet,delayed 81 mg PO DAILY 05/08/21 10/05/24 History release apixaban 5 mg tablet (Eliquis) 5 mg PO BID 05/16/21 10/05/24 History metformin 750 mg tablet,extended 750 mg PO BID 01/19/22 10/05/24 History release 24 hr dulaglutide 1.5 mg/0.5 mL 1.5 mg (0.5 mL) SQ WEEKLY 90 days 07/30/23 10/05/24 Rx subcutaneous pen injector #6.5 mL ([facility]) cholecalciferol (vitamin D3) 50 50 mcg PO DAILY 09/30/23 10/05/24 History mcg (2,000 unit) capsule losartan 50 mg tablet 50 mg PO ONCE 08/29/24 10/05/24 History ondansetron HCl 4 mg tablet 4 mg PO Q6HP PRN Nausea 08/29/24 10/05/24 History tamsulosin 0.4 mg capsule 0.4 mg PO DAILY 08/29/24 10/05/24 History albuterol sulfate 90 mcg/actuation 2 inh inhalation Q4HP PRN 10/05/24 10/05/24 History aerosol inhaler Shortness Of Breath Or Wheezing atorvastatin 80 mg tablet 80 mg PO DAILY 10/05/24 10/05/24 History empagliflozin 25 mg tablet 25 mg PO DAILY 10/05/24 10/05/24 History (Jardiance) furosemide 40 mg tablet 40 mg PO Q48H 10/05/24 10/05/24 History New Prescriptions to Start Prescriptions: Allergies Allergy/AdvReac Type Severity Reaction Status Date / Time Penicillins Allergy Hives Verified 08/29/24 10:38 Discharge Plan Disposition Patient Disposition: Home, Self-Care Condition: Good Follow up Plan Follow up with: Christa Howell MD [Primary Care Provider] - 10/11/24 10:00 am Prescriptions/Medication Reconciliation: Continued cetirizine 10 mg tablet 10 mg PO DAILY Patient Comments: TAKE ONE TABLET BY MOUTH EVERY DAY metformin 750 mg tablet extended release 24 hr 750 mg PO BID Patient Comments: TAKE ONE TABLET BY MOUTH TWICE DAILY --TAKE WITH FOOD-- Rx Instructions: TAKE WITH MEALS Eliquis 5 mg tablet 5 mg PO BID Patient Comments: TAKE ONE TABLET BY MOUTH TWICE DAILY cholecalciferol (vitamin D3) 50 mcg (2,000 unit) capsule 50 mcg PO DAILY Patient Comments: TAKE ONE CAPSULE BY MOUTH EVERY DAY losartan 50 mg tablet 50 mg PO ONCE tamsulosin 0.4 mg capsule 0.4 mg PO DAILY Patient Comments: TAKE ONE CAPSULE BY MOUTH EVERY DAY ondansetron HCl 4 mg tablet 4 mg PO Q6HP PRN (Reason: Nausea) Patient Comments: TAKE ONE TABLET BY MOUTH EVERY 6 HOURS Trulicity 1.5 mg/0.5 mL pen injector 1.5 mg SQ WEEKLY 90 Days Qty: 6.5 0RF aspirin 81 MG tablet,delayed release (DR/EC) 81 mg PO DAILY atorvastatin 80 mg tablet 80 mg PO DAILY Patient Comments: TAKE ONE TABLET BY MOUTH EVERY DAY furosemide 40 mg tablet 40 mg PO Q48H Patient Comments: TAKE ONE TABLET BY MOUTH EVERY OTHER DAY albuterol sulfate 90 mcg/actuation Hfa Aerosol Inhaler 2 inh INHALATION Q4HP PRN (Reason: Shortness Of Breath Or Wheezing) Jardiance 25 mg tablet 25 mg PO DAILY Patient Comments: TAKE ONE TABLET BY MOUTH EVERY DAY Problem Reconciliation Problems Reviewed?: Yes Patient Discharge Instructions Patient Instructions: DI for Syncope in Adults (Fainting) Print Language: Uzbek Providers Primary Care Provider: Christa Howell Admit Provider: Jeremiah Westbrook Attending Provider: Jeremiah Westbrook
[2024-10-05 11:03] VITALS: PULSE 69; PULSE 70; O2SAT 93
--- NOTE | 2024-10-05 12:07 | PC.NURSE ---
notified MD of mag level of 1.8 per electrolyte replacement protocol. no new orders
[2024-10-06 05:11] LABS: HCV Ab Non Reactive (Non Reactive)
--- NOTE | 2024-10-06 11:28 | SW/DCPLANNER ---
Spoke with patient on the phone. Patient stated that he is aware of his upcoming appointments. Patient stated that he has no concerns or questions at this time. Patient stated that he is doing very well. Chepe. GEO Barrientos
== END 2024-10-05 12:56 | disposition home or self-care (01) ==
LOC: ER 20:57 → 2ND 21:39
PROVIDERS: Nurse Practitioner Family; Physician Assistant; Admitting Provider Student in an Organized Health Care Education/Training Program; Emergency Provider Emergency Medicine; PCP Family Medicine; Visit Provider Student in an Organized Health Care Education/Training Program
DX: R55 Syncope and collapse (principal); J44.0 Chronic obstructive pulmonary disease with (acute) lower respiratory infection; C15.9 Malignant neoplasm of esophagus, unspecified; I49.5 Sick sinus syndrome; E11.69 Type 2 diabetes mellitus with other specified complication; I48.0 Paroxysmal atrial fibrillation; F17.210 Nicotine dependence, cigarettes, uncomplicated; Z95.1 Presence of aortocoronary bypass graft; Z79.899 Other long term (current) drug therapy; Z79.4 Long term (current) use of insulin; Z79.85 Long-term (current) use of injectable non-insulin antidiabetic drugs; Z79.01 Long term (current) use of anticoagulants; Z95.0 Presence of cardiac pacemaker; C78.01 Secondary malignant neoplasm of right lung; C78.7 Secondary malignant neoplasm of liver and intrahepatic bile duct; C79.00 Secondary malignant neoplasm of unspecified kidney and renal pelvis; W18.30XA Fall on same level, unspecified, initial encounter; Y92.019 Unspecified place in single-family (private) house as the place of occurrence of the external cause
CPT/HCPCS: 36415; 70470; 71045; 80053; 82607; 82746; 83735; 83880; 84439; 84443; 85025; 86803; 87389; 87633; 93005; 94640; 97162; 97165; 99285; G0378; J1100; J7030; J7120; J7620; Q9967

== ENCOUNTER 2024-12-25 09:46 | Emergency (ER) | payer MEDICARE, OTHER, SELFPAY ==
[2024-12-25] VITALS (9 sets, daily range): BP systolic 105–129; BP diastolic 57–75; PULSE 67–71; RESP 16–18; TEMP 36.5–36.6; O2SAT 93–98; BMI 25.8
--- NOTE | 2024-12-25 10:04 | CT_ITS ---
FINAL REPORT TECHNIQUE: Postcontrast axial images through the abdomen and pelvis were performed. This study was performed with techniques to keep radiation doses as low as reasonably achievable, (ALARA). Individualized dose reduction techniques using automated exposure control or adjustment of mA and/or kV according to the patient's size were employed. CLINICAL HISTORY: Right inguinal hernia, non-reducible COMPARISON: 05/08/2021 FINDINGS: Abdomen: There is chronic scarring at the bilateral lung bases with stable pleural thickening. There is cholelithiasis. The liver is normal in size and attenuation. The spleen is unremarkable. There is a left adrenal mass measuring 30 mm, unchanged, considered benign and likely an adenoma. The pancreas is unremarkable. The kidneys enhance appropriately. The abdominal aorta is borderline aneurysmal at 30 mm with moderate plaque disease. No free fluid or adenopathy is identified. No findings for mechanical bowel obstruction are identified. There is no bowel obstruction or bowel wall thickening. There is no free fluid or free air. Pelvis: The appendix is not identified. There is a new right inguinal hernia containing sigmoid colon. There is no obvious obstruction or obvious ischemic changes of the herniated bowel. The urinary bladder and prostate is unremarkable. No free fluid, free air, abscess or adenopathy is identified. IMPRESSION: Interval development of moderate right inguinal hernia containing sigmoid colon without obvious ischemic change or bowel obstruction. Reviewed, Interpreted and Dictated by Mundo Ogden MD Transcribed by Janelle De Los Santos Authenticated and [facility]
--- NOTE | 2024-12-25 10:07 | HMH.EDGENADL ---
Discharge Plan Disposition Patient Disposition: Home, Self-Care Condition: Good Prescriptions Prescriptions: New polyethylene glycol 3350 [Miralax] 17 gram/dose powder 17 g PO DAILY 4 Days Qty: 68 0RF No Action cetirizine 10 mg tablet 10 mg PO DAILY Patient Comments: TAKE ONE TABLET BY MOUTH EVERY DAY metformin 750 mg tablet extended release 24 hr 750 mg PO BID Patient Comments: TAKE ONE TABLET BY MOUTH TWICE DAILY --TAKE WITH FOOD-- Rx Instructions: TAKE WITH MEALS Eliquis 5 mg tablet 5 mg PO BID Patient Comments: TAKE ONE TABLET BY MOUTH TWICE DAILY cholecalciferol (vitamin D3) 50 mcg (2,000 unit) capsule 50 mcg PO DAILY Patient Comments: TAKE ONE CAPSULE BY MOUTH EVERY DAY losartan 50 mg tablet 50 mg PO ONCE tamsulosin 0.4 mg capsule 0.4 mg PO DAILY Patient Comments: TAKE ONE CAPSULE BY MOUTH EVERY DAY ondansetron HCl 4 mg tablet 4 mg PO Q6HP PRN (Reason: Nausea) Patient Comments: TAKE ONE TABLET BY MOUTH EVERY 6 HOURS Trulicity 1.5 mg/0.5 mL pen injector 1.5 mg SQ WEEKLY 90 Days Qty: 6.5 0RF furosemide 40 mg tablet 40 mg PO Q48H Qty: 30 11RF Patient Comments: TAKE ONE TABLET BY MOUTH EVERY OTHER DAY atorvastatin 80 mg tablet See Rx Instructions .ROUTE .COMPLEX Qty: 90 5RF Dose Instruction: TAKE ONE TABLET BY MOUTH EVERY DAY Rx Instructions: TAKE ONE TABLET BY MOUTH EVERY DAY aspirin 81 MG tablet,delayed release (DR/EC) 81 mg PO DAILY albuterol sulfate 90 mcg/actuation Hfa Aerosol Inhaler 2 inh INHALATION Q4HP PRN (Reason: Shortness Of Breath Or Wheezing) Jardiance 25 mg tablet 25 mg PO DAILY Patient Comments: TAKE ONE TABLET BY MOUTH EVERY DAY Referrals Follow up/Referrals: Nash Villa MD [Staff Physician] - See instructions (Right inguinal hernia) Lamar Domínguez APRN [Primary Care Provider] - See instructions Jeremiah Peres MD [Staff Physician] - See instructions (Urinary retention, husain anchored) Activity Restrictions/Add. Instructions Additional Instructions/Restrictions: You are being referred to urology. Call [phone] to schedule an appointment. You are also being referred to the general surgery team due to your hernia. Call [phone] to schedule an appointment. If you develop any new or worsening symptoms, such as worsening abdominal pain, fever, inability to have a bowel movement, vomiting, or if you stop making urine via Husain catheter, return to the emergency department for evaluation. Clinical Impressions Clinical Impression: Acute urinary retention, Inguinal hernia Instructions Patient Instructions: DI for Urinary Tract Infection (UTI), DI for Urinary Tract Infection in Children Print Language Print Language: Yakut Discharge ED Provider: Salvador Hamilton General Adult HPI General Chief complaint: Urogenital-Male Stated complaint: sent by Lamar Hernandez to get catheter Time Seen by Provider: 12/25/24 09:57 Mode of Arrival: Wheelchair Source of Information: Patient and Spouse Limitations: No Limitations Description of Symptoms (Recalled from ER Triage Doc. by RN): PT STATES THAT HE CANNOT PEE AND CANNOT POOP. HE STATES THAT HIS LAST BM WAS THREE DAYS AGO AND LAST GOO VOID WAS YESTERDAY. HE STATES THAT WHEN HE TRIES TO PEE ITS JUST DRIBBLES. History of Present Illness HPI narrative: Vamsi Mallory is a 79M with a past medical history of metastatic esophageal carcinoma, hypertension, hyperlipidemia, diabetes, sick sinus syndrome, atrial fibrillation, CHF, COPD, CAD status post CABG who presents to the emergency department from his primary care office for Husain catheter placement. Patient reports over the last 2 days, he has had constipation and is only been able to dribble a small amount of urine out when he tries to pee. He reports increasing lower abdominal pain. He notes that he has a hernia to his right inguinal area that has been present for years, however the last week it is grown in size and become more painful. He states that he normally has a bowel movement every day but has not had 1 in 2 days. He denies any known history of prostate issues. He states that he is currently on immunotherapy for his esophageal carcinoma Related Data Home Medications ?Medication ?Instructions ?Recorded ?Confirmed cetirizine 10 mg tablet 10 mg PO DAILY 05/08/20 12/25/24 aspirin 81 mg tablet,delayed 81 mg PO DAILY 05/08/21 12/25/24 release apixaban 5 mg tablet (Eliquis) 5 mg PO BID 05/16/21 12/25/24 metformin 750 mg tablet,extended 750 mg PO BID 01/19/22 12/25/24 release 24 hr cholecalciferol (vitamin D3) 50 50 mcg PO DAILY 09/30/23 12/25/24 mcg (2,000 unit) capsule losartan 50 mg tablet 50 mg PO ONCE 08/29/24 12/25/24 ondansetron HCl 4 mg tablet 4 mg PO Q6HP PRN Nausea 08/29/24 12/25/24 tamsulosin 0.4 mg capsule 0.4 mg PO DAILY 08/29/24 12/25/24 albuterol sulfate 90 mcg/actuation 2 inh inhalation Q4HP PRN 10/05/24 12/25/24 aerosol inhaler Shortness Of Breath Or Wheezing empagliflozin 25 mg tablet 25 mg PO DAILY 10/05/24 12/25/24 (Jardiance) Previous Rx's ?Medication ?Instructions ?Recorded dulaglutide 1.5 mg/0.5 mL 1.5 mg (0.5 mL) SQ WEEKLY 90 days 07/30/23 subcutaneous pen injector #6.5 mL (Trulicity) furosemide 40 mg tablet 40 mg PO Q48H #30 tabs 11/16/24 atorvastatin 80 mg tablet See Rx Instructions .Route 11/17/24 .COMPLEX #90 tabs polyethylene glycol 3350 17 17 g PO DAILY 4 days #68 grams 12/25/24 gram/dose oral powder (Miralax) Allergies Allergy/AdvReac Type Severity Reaction Status Date / Time Penicillins Allergy Hives Verified 10/23/24 08:04 [facility] Disclaimer: The information contained in this section may have been updated after the patient was seen, as this information can be updated by other users. Medical History Mass of larynx Dizziness History of cardiac pacemaker in situ Cold extremities Bilateral cold feet Edema of both feet Decreased pulses in feet Cool skin Sick sinus syndrome Atrial fibrillation with controlled ventricular rate Idioventricular rhythm Hypomagnesemia Symptomatic bradycardia Acute exacerbation of chronic obstructive airways disease Community acquired pneumonia Congestive heart failure Obesity (BMI 30.0-34.9) Onychodystrophy Gastroenteritis Weakness Keratosis Pain around toenail Onychomycosis Thyroid cancer Lung cancer Cancer of kidney Diabetes mellitus Hyperlipidemia Hypertension Cardiac pacemaker in situ PAF (paroxysmal atrial fibrillation) Chest pressure Bilateral leg pain Atypical angina Abnormal cardiovascular stress test Dyspnea Tobacco dependence syndrome PAC (premature atrial contraction) Sinus bradycardia Abnormal electrocardiography CAD (coronary artery disease) Surgical History H/O arthroscopy of right knee Hx of CABG Family History Other Diabetes Social History Smoking Status: Current every day smoker tobacco type: cigarettes packs per day: 1 second hand exposure: Yes alcohol intake: never substance use type: denies use current occupational status: retired and disabled Travel in the last 8 weeks: None household members: spouse housing: house current occupational exposures/hazards: No Have you lived/traveled outside [place] in past 30 days?: No Contact w/someone who lives/traveled outside US past 30 days?: No Exposure to someone with infectious disease in past 14 days?: No Do you have a fever (greater than 100.4 F or 38 C)?: No Have you tested positive for COVID-19: No Exposed to someone with COVID-19 in past 14 days?: No Do you have a sore throat?: No Do you have a cough?: No Do you have any weakness?: No Do you have any diarrhea?: No Are you experiencing any unusual bleeding?: No Do you have any muscle aches/pain?: No Do you have any abdominal pain?: No Are you experiencing loss of taste or smell?: No Other Medical History Have you received the Flu Vaccine for this season: No Have you received the Pneumonia Vaccine: No ROS Obtained: Yes Systems reviewed as appropriate & no additional complaints except as documented Physical Exam General General appearance: alert and in no apparent distress Head Head exam: atraumatic Eye Eye exam: Present normal appearance ENT ENT exam: Present normal external ear exam Neck Neck exam: Present full ROM Chest Chest inspection: Present symmetric chest wall rise Respiratory Respiratory exam: Present normal lung sounds bilaterally; Absent respiratory distress Cardiovascular Cardiovascular exam: Present regular rate and normal rhythm Abdominal Exam Abdominal exam: Present soft and hernia (Right inguinal hernia present. Tenderness in this area but no duskiness. Not able to reduce the hernia currently.); Absent tenderness or guarding exam: Present deferred Extremities Exam Extremities exam: Present normal inspection Back Exam Back exam: Present normal inspection Neurological Exam Neurological exam: Present alert and oriented X3 Psychiatric Psychiatric exam: Present normal affect Skin Skin exam: Present warm and dry Medical Decision Making Medical Records Screening: Per USPSTF and CDC recommendations, given the prevalence of disease in our region, it is our hospital?s policy to screen for HIV and viral Hepatitis for all patients aged 18 and over and those with ongoing risk factors. Edmund Inquiry Pt receiving controlled substance: No Vital Signs: 12/25/24 09:56 12/25/24 10:21 12/25/24 10:31 Temperature 97.7 F Temperature Source Oral Pulse Rate 70 71 Pulse Rate [Right Radial] 67 Respiratory Rate 18 Blood Pressure 121/75 105/57 L Blood Pressure [Right Arm] 129/73 Blood Pressure Mean 78 Blood Pressure Mean [Right Arm] 91 Blood Pressure Source [Right Arm] Automatic Cuff Blood Pressure Position [Right Arm] Sitting 02 Sat by Pulse Oximetry 94 L 98 93 L Oxygen Delivery Method Room Air Room Air 12/25/24 11:30 12/25/24 12:00 12/25/24 12:30 Temperature Temperature Source Pulse Rate 70 70 70 Pulse Rate [Right Radial] Respiratory Rate Blood Pressure 128/72 121/71 124/67 Blood Pressure [Right Arm] Blood Pressure Mean 88 Blood Pressure Mean [Right Arm] Blood Pressure Source [Right Arm] Blood Pressure Position [Right Arm] 02 Sat by Pulse Oximetry 97 96 96 Oxygen Delivery Method Room Air Room Air 12/25/24 13:00 12/25/24 13:06 12/25/24 13:22 Temperature 97.8 F Temperature Source Pulse Rate 70 68 70 Pulse Rate [Right Radial] Respiratory Rate 16 Blood Pressure 125/63 129/70 129/70 Blood Pressure [Right Arm] Blood Pressure Mean Blood Pressure Mean [Right Arm] Blood Pressure Source [Right Arm] Blood Pressure Position [Right Arm] 02 Sat by Pulse Oximetry 95 97 Oxygen Delivery Method Room Air Room Air Lab Data Lab Results 12/25/24 10:16: WBC 7.3, RBC 4.61, Hgb 13.8 L, Hct 42.0, MCV 91.1, MCH 29.9, MCHC 32.9, RDW 14.2, Plt Count 179, MPV 10.5 H, Neut % (Auto) 64.1, Lymph % (Auto) 26.5, [place] % (Auto) 5.8, Eos % (Auto) 2.8, Baso % (Auto) 0.4, Neut # (Auto) 4.7, Lymph # (Auto) 1.9, [place] # (Auto) 0.4, Eos # (Auto) 0.2, Baso # (Auto) 0.0, PT 10.5, INR 0.94, Sodium 137, Potassium 4.1, Chloride 103, Carbon Dioxide 32 H, Anion Gap 6.1, BUN 15, Creatinine 0.90, Estimated Creat Clear 68, Estimated GFR 82, Est GFR ( Amer) 99, Glucose 91, Lactate 1.1, Calcium 9.0, Total Bilirubin 0.5, AST 26, ALT 30, Alkaline Phosphatase 130 H, Total Protein 6.8, Albumin 4.1, Globulin 2.7, Albumin/Globulin Ratio 1.5 12/25/24 11:50: Urine Color Yellow, Urine Appearance Clear, Urine pH 6.5, Ur Specific [place] 1.020, Urine Protein Negative, Urine Glucose (UA) Negative, Urine Ketones Negative, Urine Blood Negative, Urine Nitrate Negative, Urine Bilirubin Negative, Urine Urobilinogen 0.2, Ur Leukocyte Esterase Negative, Urine RBC None, Urine WBC 5-10, Ur Squamous Epith Cells 3-5, Urine Bacteria 1+ 12/25/24 10:16 12/25/24 10:16 Orders (Tests/Meds): ED MEDICATIONS Discontinued Medications Generic Name Dose Route Start Last Admin Trade Name Freq PRN Reason Stop Dose Admin Iopamidol 75 ml 12/25/24 10:59 12/25/24 10:59 Iopamidol-370 (76%);100ml Bottle IV 12/25/24 11:00 75 ml ONCE ONE Administration Sodium Chloride 10 ml 12/25/24 10:59 12/25/24 10:59 Sodium Chloride 0.9% 10ml Syr (Rad Only) IV 01/24/25 10:58 10 ml NEEDED PRN Administration Maintain IV Site ORDERS Category Date Time Status CT abdomen pelvis w con Stat Cat Scan 12/25/24 10:04 Completed CBC w/Auto Diff [Complete Blood Count Auto Diff] Stat Lab 12/25/24 10:16 Completed CMP [Comprehensive Metabolic Panel] Stat Lab 12/25/24 10:16 Completed Lactic Acid Stat Lab 12/25/24 10:16 Completed PT INR [Prothrombin Time INR] Stat Lab 12/25/24 10:16 Completed UA [Urinalysis and Microscopic] Stat Lab 02/24/25 11:50 Completed Medical Decision Narrative: Vamsi Mallory is a 79M with a history of metastatic esophageal carcinoma, hypertension, hyperlipidemia, diabetes, sick sinus syndrome, atrial fibrillation, CHF, COPD, CAD status post CABG who presented to the emergency department per PCP recommendations for Husain catheter placement. Patient states that he has not had a bowel movement in 2 days and normally he goes every day. He states that the last 2 days, he has not been able to pee well and has to strain in order to get any become out. He notes some dribbling of urine. He reports increasing pain in his suprapubic region. He denies any history of urinary retention but does note that he is currently on immunotherapy for cancer. He is also reporting worsening pain and swelling in his right inguinal area. He states that he has had a hernia in this area before but he can no longer push it back in. Differential diagnosis includes, but is not limited to: Incarcerated hernia, small bowel obstruction, BPH, bladder outlet obstruction, UTI, among others. Patient's workup in the emergency department included: His CT abdomen pelvis with IV contrast, CBC with differential, PT/INR, CMP, urinalysis, lactate CT abdomen pelvis with IV contrast interpreted by me personally. No findings consistent with bowel obstruction. Patient does have a right inguinal hernia with bowel within the hernia. No evidence of ischemia or obstruction in this area. See radiology report for details. Due to inability to urinate, a Husain catheter was anchored. No leukocytosis, no anemia, coagulation studies within normal limits, CMP unremarkable nonactionable with normal electrolytes, lactate within normal limits, urinalysis without evidence of infection. The patient is being referred to urology for close follow-up. He is also being referred to general surgery for his hernia for close follow-up. He was given strict return precautions. All questions were answered. He demonstrated understanding and was in agreement with this plan. He was then discharged from the emergency department in stable condition. Critical Care Critical Care Time Critical Care Time: No
--- NOTE | 2024-12-25 10:21 | PC.NURSE ---
BLADDER SCANNED X3 WITH APPROX. 216MLS IN BLADDER
[2024-12-25 10:26] LABS: Basophils % 0.4 % (0.1-2.0); Eosinophils # 0.2 K/mm3 (0.0-0.4); Eosinophils % 2.8 % (0.1-12.0); Hemoglobin 13.8 g/dL (14.1-18.0); Lymphocytes # 1.9 K/mm3 (0.7-4.5); Lymphocytes % 26.5 % (10-50); Mean Corpuscular HGB Conc 32.9 g/dL (31.8-35.4); Mean Corpuscular Hemoglobin 29.9 pg (27.0-31.2); Mean Corpuscular Volume 91.1 fl (80-94); Mean Platelet Volume 10.5 fl (7.4-10.4); Monocytes # 0.4 K/mm3 (0.1-1.0); Monocytes % 5.8 % (1.7-9.3); Neutrophils # 4.7 K/mm3 (1.8-7.8); Neutrophils % 64.1 % (37.0-80.0); Platelet Count 179 K/mm3 (142-424); Red Blood Count 4.61 M/mm3 (4.60-6.20); Red Cell Distribution Width 14.2 % (11.5-17.5); White Blood Count 7.3 K/mm3 (4.8-10.8)
[2024-12-25 10:41] LABS: Alanine Aminotransferase 30 U/L (12-78); Albumin Level 4.1 g/dl (3.5-5.0); Albumin/Globulin Ratio 1.5 (1.1-1.8); Alkaline Phosphatase 130 U/L (38-126); Anion Gap 6.1 mEq/L (5-15); Aspartate Amino Transferase 26 U/L (17-59); Bilirubin,Total 0.5 mg/dl (0.2-1.3); Blood Urea Nitrogen 15 mg/dl (9-20); Carbon Dioxide 32 mmol/L (22.0-30.0); Chloride 103 mmol/L (98-107); Creatinine Clearance Estimated 68 mL/min (50-200); Estimated Glomerular Filt Rate 82 ml/min (>60); GFR (African American) 99 ML/MIN (>60); Globulin 2.7 g/dL (1.3-3.2); Glucose 91 mg/dl (74-100); Lactic Acid 1.1 mmol/L (0.7-2.1); Potassium 4.1 mmoL/L (3.5-5.1); Sodium 137 mmol/L (136-145); Total Protein,Serum 6.8 g/dl (6.3-8.2)
[2024-12-25] MEDS: IOPAMIDOL-370 (76%);100ML BOTTLE 75 ML IV (10:59)
[2024-12-25] MEDS: SODIUM CHLORIDE 0.9% 10ML SYR (RAD ONLY) 10 ML IV (10:59)
[2024-12-25 11:02] LABS: INR 0.94 (0.9-1.1); Prothrombin Time 10.5 seconds (9.2-12.1)
--- NOTE | 2024-12-25 11:38 | PC.NURSE ---
Pt still unable to void at this time; Dr. Hamilton has been made aware. No other needs at this time. Family at BS
[2024-12-25 12:00] LABS: Microscopic, Urine URINE MICROSCOPIC (MICROSCOPIC)
--- NOTE | 2024-12-25 12:43 | PC.NURSE ---
Called Lab to check on urine results; reports it will be resulted in 5-10 mins
[2024-12-25 12:46] LABS: Appearance,Urine CLEAR (Clear); Bilirubin,Urine Negative (Negative); Blood, Urine Negative (Negative); Color,Urine YELLOW (Yellow); Glucose,Urine (UA) Negative (Negative); Ketones,Urine Negative (Negative); Leukocyte Esterase,Urine Negative (Negative); Nitrate,Urine Negative (Negative); PH,Urine 6.5 (5.0-8.5); Protein,Urine Negative (Negative); Urobilinogen,Urine 0.2 EU/dl (0.2)
[2024-12-25 12:51] LABS: Bacteria,Urine 1+ /lpf
== END 2024-12-25 13:22 | disposition home or self-care (01) ==
PROVIDERS: Emergency Provider Student in an Organized Health Care Education/Training Program; PCP Nurse Practitioner Family
DX: R33.8 Other retention of urine (principal); K40.90 Unilateral inguinal hernia, without obstruction or gangrene, not specified as recurrent; K59.00 Constipation, unspecified; R10.30 Lower abdominal pain, unspecified; F17.210 Nicotine dependence, cigarettes, uncomplicated
CPT/HCPCS: 51702; 74177; 80053; 81001; 83605; 85025; 85610; 99285; Q9967

== ENCOUNTER 2024-12-27 06:15 | Outpatient (CLI) | payer MEDICARE, OTHER, SELFPAY ==
--- NOTE | 2024-12-27 | CA_ITS ---
APPROVED REPORT Exam: Pharmacologic Technologist: Kina Raymundo Ht: 6 ft 1 in Wt: 175 lbs BSA: 2.03 m2 HR: 70 bpm BP: 99/61 mmHg Stress Test Details Test: Lexiscan HR Resting HR: 70 bpm Max Heart Rate (APMHR): 142 bpm Max HR Achieved: 79 bpm Target HR (85% APMHR): 121 bpm % of APMHR: 56 Recovery HR: 72 bpm BP Resting BP: 99.0/61.0 mmHg Max BP: 101.0/50.0 mmHg Recovery BP: 100.0/49.0 mmHg ECG Resting ECG: Ventricular paced with intermittent atrial pacing. Stress ECG Conclusion Symptoms: None Arrhythmias/Ectopy: None ST-T Changes: < 1.[address] segment changes. Concluison: Non-diagnostic Lexiscan stress. Electronically signed by : Jennifer Joseph MD 12/27/2024 12:06:25
--- NOTE | 2024-12-27 06:19 | NM_ITS ---
APPROVED REPORT Exam: Nuclear Stress Test Indication: cad, cabg, diabetes, hyperlipidemia, tob use, sob, fatigue Patient Location: Outpatient Stress Tech: Kina Raymundo [place] Tech:PRISCILLA Hansen RT (R)(N)(M) Ht: 5 ft 9 in Wt: 175 lbs HR: 70 bpm BP: 99/61 mmHg BSA: 1.95 m2 TID: 1.14 BMI: 25.8 History: cad, cabg, diabetes, hyperlipidemia, tob use, sob, fatigue Patient could not raise arms above head, nor could he lay on stomach for prone images. Procedure: Patient received 0.0 mg of intravenous Lexiscan, resting heart rate 70 bpm, resting blood pressure 99/61 mmHg, with Lexiscan maximum heart rate achieved was 74 bpm which is % of the maximum predicted heart rate and blood pressure was 97/51 mmHg. With Lexiscan, patient denied any complaint of chest pain. Cardiac Stress and Resting SPECT Images: Cardiac Stress and Resting SPECT images were obtained using technetium 99m Myoview 30.5 mCi stress and 10.42 mCi at rest. The patient could not lie on his abdomen. Therefore, prone stress imaging could not be performed. This may affect the diagnostic interpretation of the study findings. Resting and stress imaging in supine positions demonstrate a large sized, moderate, partially reversible perfusion defect in the inferior, inferosptal LV dean, as well as the apical LV wall. Gated imaging demonstrates mild reduction global LV systolic function. There is moderate hypokinesis of the inferior and apical LV dean. LVEF is calculated at 44%. Of note, the right ventricle appears to be dilated. Correlation with new or recent TTE is suggested. Conclusion: Large sized, moderate, partially reversible perfusion defect in the inferior, inferosptal LV dean, as well as the apical LV wall. Findings are suggestive of partial reversible ischemia. Gated imaging demonstrates mild reduction global LV systolic function. There is moderate hypokinesis of the inferior and apical LV dean. LVEF is calculated at 44%. Of note, the right ventricle appears to be dilated. Correlation with new or recent TTE is suggested. Electronically signed by : Jennifer Joseph MD 12/27/2024 12:00:01
[2024-12-27] MEDS: SODIUM CHLORIDE 0.9% 10ML SYR (RAD ONLY) 10 ML IV ×2 (06:35→08:00)
[2024-12-27] MEDS: REGADENOSON 0.4MG/5ML SYRINGE 0.4 MG IV (08:00)
[2024-12-27] MEDS: ISOTOPE MYOVIEW (PER STUDY) 1 DOSE IV (08:48)
== END 2024-12-27 23:59 | disposition home or self-care (01) ==
LOC: RAD 06:16
PROVIDERS: PCP Family Medicine; Visit Provider Nurse Practitioner Family
DX: I25.10 Atherosclerotic heart disease of native coronary artery without angina pectoris (principal)
CPT/HCPCS: 78452; 93017; 93018; A9502; J2785

== ENCOUNTER 2024-12-28 11:22 | Emergency (ER) | payer MEDICARE, OTHER, SELFPAY ==
[2024-12-28 11:36] VITALS: BP 133/61; PULSE 71; RESP 18; TEMP 36.7; O2SAT 97; BMI 25.9
--- NOTE | 2024-12-28 12:36 | PC.NURSE ---
bladder scanned patient prior to flushing current cath, bladder scanned showed nothing, flushed husain but still did not drain very well, old husain removed, new husain placed and attached to leg bag er provider aware of everything, po challenge and observe
[2024-12-28 12:47] LABS: Microscopic, Urine URINE MICROSCOPIC (MICROSCOPIC)
[2024-12-28 12:49] LABS: Appearance,Urine CLEAR (Clear); Blood, Urine 3+ (Negative); Color,Urine YELLOW (Yellow); Glucose,Urine (UA) Negative (Negative); Ketones,Urine Negative (Negative); Leukocyte Esterase,Urine 2+ (Negative); Nitrate,Urine Negative (Negative); Protein,Urine 2+ (Negative); Urobilinogen,Urine 0.2 EU/dl (0.2)
[2024-12-28 13:09] LABS: Bilirubin,Urine Negative (Negative)
--- NOTE | 2024-12-28 13:12 | ED_ITS ---
<Statement entered by Camryn Meadows DO - 12/28/24 16:20> I was consulted by the NANCY, and we discussed the complexity of the problems being addressed. I approved the treatment and management plan for this patient's care in the emergency department, thus performing a substantive portion of the medical decision making. Camryn Meadows DO Discharge Plan Disposition Patient Disposition: Home, Self-Care Condition: Good Prescriptions Prescriptions: No Action metformin 750 mg tablet extended release 24 hr 750 mg PO BID Patient Comments: TAKE ONE TABLET BY MOUTH TWICE DAILY --TAKE WITH FOOD-- Rx Instructions: TAKE WITH MEALS pantoprazole 40 mg tablet,delayed release (DR/EC) 40 mg PO DAILY magnesium oxide 400 mg magnesium tablet 400 mg PO DAILY atorvastatin [Lipitor] 40 mg tablet 40 mg PO HS ondansetron HCl 8 mg tablet 8 mg PO BID Linzess 145 mcg capsule 145 mcg PO DAILY tamsulosin 0.4 mg capsule 0.4 mg PO DAILY Patient Comments: TAKE ONE CAPSULE BY MOUTH EVERY DAY Trulicity 1.5 mg/0.5 mL pen injector 1.5 mg SQ WEEKLY 90 Days Qty: 6.5 0RF albuterol sulfate 90 mcg/actuation Hfa Aerosol Inhaler 2 inh INHALATION Q4HP PRN (Reason: Shortness Of Breath Or Wheezing) Referrals Follow up/Referrals: Christa Howell MD [Primary Care Provider] - See instructions Activity Restrictions/Add. Instructions Additional Instructions/Restrictions: Today your Husain catheter was changed in the emergency department and is draining well. Please follow-up with urology as scheduled. Follow-up with your PCP within 7 days. Return to the ED for any worsening of condition. Your urine has been sent off for culture, we will contact you if needed. Clinical Impressions Clinical Impression: Encounter for Husain catheter replacement Instructions Patient Instructions: Prostatitis Print Language Print Language: Azeri Discharge ED Provider: Camryn Meadows General Adult HPI General Chief complaint: Urogenital-Male Stated complaint: catheter not draining, abd pain Time Seen by Provider: 12/28/24 11:46 Mode of Arrival: Ambulatory Source of Information: Patient Limitations: No Limitations Description of Symptoms (Recalled from ER Triage Doc. by RN): Pt presents with c/o husain catheter not draining and states he has pressure to his lower abdomen. History of Present Illness HPI narrative: Patient is a 79-year-old male PMHx chronic A-fib, HFpEF, history of urinary retention with Husain catheter, history of esophageal cancer, COPD, diabetes, hypertension, hyperlipidemia who presents to the ED for Husain catheter issue. Patient states that his Husain catheter stopped draining this morning. Related Data Home Medications ?Medication ?Instructions ?Recorded ?Confirmed metformin 750 mg tablet,extended 750 mg PO BID 01/19/22 12/26/24 release 24 hr tamsulosin 0.4 mg capsule 0.4 mg PO DAILY 08/29/24 12/26/24 albuterol sulfate 90 mcg/actuation 2 inh inhalation Q4HP PRN 10/05/24 12/26/24 aerosol inhaler Shortness Of Breath Or Wheezing atorvastatin 40 mg tablet (Lipitor) 40 mg PO HS 12/26/24 12/26/24 linaclotide 145 mcg capsule 145 mcg PO DAILY 12/26/24 12/26/24 (Linzess) magnesium oxide 400 mg PO DAILY 12/26/24 12/26/24 ondansetron HCl 8 mg tablet 8 mg PO BID 12/26/24 12/26/24 pantoprazole 40 mg tablet,delayed 40 mg PO DAILY 12/26/24 12/26/24 release Previous Rx's ?Medication ?Instructions ?Recorded dulaglutide 1.5 mg/0.5 mL 1.5 mg (0.5 mL) SQ WEEKLY 90 days 07/30/23 subcutaneous pen injector #6.5 mL (Trulicity) Allergies Allergy/AdvReac Type Severity Reaction Status Date / Time Penicillins Allergy Hives Verified 12/26/24 10:44 [facility] Disclaimer: The information contained in this section may have been updated after the patient was seen, as this information can be updated by other users. Medical History (Updated 12/28/24 @ 13:16 by Nataliia Crews APRN) Chronic atrial fibrillation SOB (shortness of breath) on exertion (HFpEF) heart failure with preserved ejection fraction Pre-op evaluation Mass of larynx Dizziness History of cardiac pacemaker in situ Cold extremities Bilateral cold feet Edema of both feet Decreased pulses in feet Cool skin Sick sinus syndrome Atrial fibrillation with controlled ventricular rate Idioventricular rhythm Hypomagnesemia Symptomatic bradycardia Acute exacerbation of chronic obstructive airways disease Community acquired pneumonia Congestive heart failure Obesity (BMI 30.0-34.9) Onychodystrophy Gastroenteritis Weakness Keratosis Pain around toenail Onychomycosis Thyroid cancer Lung cancer Cancer of kidney Diabetes mellitus Hyperlipidemia Hypertension Cardiac pacemaker in situ PAF (paroxysmal atrial fibrillation) Chest pressure Bilateral leg pain Atypical angina Abnormal cardiovascular stress test Dyspnea Tobacco dependence syndrome PAC (premature atrial contraction) Sinus bradycardia Abnormal electrocardiography CAD (coronary artery disease) Surgical History H/O arthroscopy of right knee Hx of CABG Family History Other Diabetes Social History Smoking Status: Current some day smoker tobacco type: cigarettes packs per day: 1 second hand exposure: Yes alcohol intake: never substance use type: denies use current occupational status: retired and disabled Travel in the last 8 weeks: None household members: spouse housing: house current occupational exposures/hazards: No Have you lived/traveled outside [place] in past 30 days?: No Contact w/someone who lives/traveled outside [place] past 30 days?: No Exposure to someone with infectious disease in past 14 days?: No Do you have a fever (greater than 100.4 F or 38 C)?: No Have you tested positive for COVID-19: No Exposed to someone with COVID-19 in past 14 days?: No Do you have a sore throat?: No Do you have a cough?: No Do you have any weakness?: No Do you have any diarrhea?: No Are you experiencing any unusual bleeding?: No Do you have any muscle aches/pain?: No Do you have any abdominal pain?: Yes Are you experiencing loss of taste or smell?: No Other Medical History Have you received the Flu Vaccine for this season: No Have you received the Pneumonia Vaccine: Yes ROS Obtained: Yes Systems reviewed as appropriate & no additional complaints except as documented Physical Exam General General appearance: alert and in no apparent distress Head Head exam: atraumatic and normocephalic Eye Eye exam: Present normal appearance and PERRL ENT ENT exam: Present normal exam Neck Neck exam: Present normal inspection Chest Chest inspection: Present normal inspection and symmetric chest wall rise; Absent tenderness Respiratory Respiratory exam: Present normal lung sounds bilaterally Cardiovascular Cardiovascular exam: Present regular rate Abdominal Exam Abdominal exam: Present soft and normal bowel sounds; Absent tenderness Extremities Exam Extremities exam: Present normal inspection and full ROM Back Exam Back exam: Present normal inspection and full ROM Neurological Exam Neurological exam: Present alert and oriented X3 Psychiatric Psychiatric exam: Present normal affect and normal mood Skin Skin exam: Present warm and dry Medical Decision Making Medical Records Screening: Per USPSTF and CDC recommendations, given the prevalence of disease in our region, it is our hospital?s policy to screen for HIV and viral Hepatitis for all patients aged 18 and over and those with ongoing risk factors. Edmund Inquiry Pt receiving controlled substance: No Edmund was queried for this patient: No Vital Signs: 12/28/24 11:36 12/28/24 13:22 Temperature 98.0 F 98.5 F Temperature Source Oral Pulse Rate 80 Pulse Rate [Right] 71 Respiratory Rate 18 20 Blood Pressure 140/79 Blood Pressure [Right Arm] 133/61 Blood Pressure Mean [Right Arm] 85 Blood Pressure Source [Right Arm] Automatic Cuff Blood Pressure Position [Right Arm] Sitting 02 Sat by Pulse Oximetry 97 Oxygen Delivery Method Room Air Room Air Lab Data Lab Results 12/28/24 12:30: Urine Color Yellow, Urine Appearance Clear, Urine pH 6.0, Ur Specific [place] 1.010, Urine Protein 2+ A, Urine Glucose (UA) Negative, Urine Ketones Negative, Urine Blood 3+ A, Urine Nitrate Negative, Urine Bilirubin Negative, Urine Urobilinogen 0.2, Ur Leukocyte Esterase 2+ A, Urine RBC 10-20, Urine WBC 3-5, Ur Squamous Epith Cells None, Urine Bacteria Trace Orders (Tests/Meds): ORDERS Category Date Time Status UA [Urinalysis and Microscopic] Stat Lab 12/28/24 12:30 Completed Urine Culture Stat Micro 12/28/24 12:30 Received Medical Decision Narrative: In summary, patient is a 79-year-old male PMHx chronic A-fib, HFpEF, history of urinary retention with Husain catheter, history of esophageal cancer, COPD, diabetes, hypertension, hyperlipidemia who presents to the ED for Husain catheter issue. Patient states that his Husain catheter stopped draining this morning. He recently saw urology, denies any dysuria, flank pain, abdominal pain, fever, chills. Upon initial exam, patient is alert, oriented and cooperative. Patient is hemodynamically stable. Physical exam unremarkable. No abdominal tenderness, no flank pain. Denies fever, chills, bodyaches, headache, chest pain, shortness of breath, abdominal pain, flank pain, dysuria. Differential diagnosis includes dislodged Husain catheter, UTI, hematuria, among others. Initial workup will be conducted with bladder scan and urinalysis. Initial inventions include Husain catheter change. Initial workup reviewed by me. Urinalysis unremarkable for infection, 2+ leuks however most likely from catheter change in ED. Nitrite negative. Asymptomatic. Sent for culture. I considered additional testing but deferred due to patient asymptomatic otherwise. Upon repeat evaluation, patient had an acceptable resolution of symptoms. Able to tolerate p.o. Given this, I feel the patient is safe to be discharged at this time. Discussed that he will need to follow back up with urology. Advised to follow-up with PCP within 7 days. Discussed return precautions to the ED. Patient verbalized understanding. He is ambulatory without difficulty. Critical Care Critical Care Time Critical Care Time: No
[2024-12-28 13:13] LABS: Bacteria,Urine Trace /lpf
[2024-12-28 13:22] VITALS: BP 140/79; PULSE 80; RESP 20; TEMP 36.9; O2SAT 97
--- NOTE | 2024-12-31 08:43 | PC.NURSE ---
discussed urine culture with , called in levofloxacin 750 mg po daily x7days per MD, attempted to notify pt of prescription, no answer on pt phone number or , will attempt to call later today.
--- NOTE | 2024-12-31 11:54 | PC.NURSE ---
pt aware of uti and medicine at clinic pharmacy for pickup
== END 2024-12-28 13:23 | disposition home or self-care (01) ==
PROVIDERS: Nurse Practitioner; Emergency Provider Emergency Medicine; PCP Family Medicine
DX: T83.098A Other mechanical complication of other urinary catheter, initial encounter (principal); R10.30 Lower abdominal pain, unspecified; F17.210 Nicotine dependence, cigarettes, uncomplicated
CPT/HCPCS: 51702; 81001; 87086; 87088; 99283

== ENCOUNTER 2025-01-01 13:00 | Outpatient (CLI) | payer MEDICARE, OTHER, SELFPAY | END 2025-01-01 23:59 | disposition home or self-care (01) | LOC: LAB.DROPOF 01-03 12:31 | PROVIDERS: PCP Urology; Visit Provider Urology | DX: R33.8 Other retention of urine (principal); R31.9 Hematuria, unspecified | CPT/HCPCS: 87086 ==

== ENCOUNTER 2025-01-02 07:44 | Outpatient (CLI) | payer MEDICARE, OTHER, SELFPAY ==
--- NOTE | 2025-01-02 07:47 | CA_ITS ---
APPROVED REPORT EXAM: Comprehensive 2D, Doppler, and color-flow Echocardiogram Engineering Production Worker: Alida Sims, RT(R) Ht: 6 ft 0 in Wt: 175lbs BSA: 2.01 BP: 114/72 mmHg Indications: SOB, pre op assessment for hernia surgery, pacemaker, CHF, AFIB, hx CABG, hx metastatic cancer lungs and esophagus, post chemo/radiation. 2D Dimensions LA Volume 53.30 mL LA Volume Index 26.52 mL/m2 (M/F) 16-34 EF AP4 25.90 % GL Strain -7.6 % M-Mode Dimensions RVDd 3.63 cm (0.9-2.6) LA Diam 4.73 cm (1.9-4.0) LVDd 4.86 cm (3.5-5.7) LVDs 3.42 cm (3.5-5.7) IVSd 1.01 cm (0.6-1.1) PWd 0.93 cm (0.6-1.1) EF (Teich) 56.50% FS 29.60% EDV (Teich) 110.70 mL ESV (Teich) 48.10 mL LV Diastology E Decel Time 250 (160-240 msec) E/A Ratio 1.3 Aortic Valve LUIS DANIEL Index 1.22 cm2/m2 AoV Peak [place]. 121.0 (50-130 cm/s) AO Peak GR. 5.90 mmHg AO Mean GR. 2.90 (<5 mmHg) AO VTI 21.9 (18-25 cm) LUIS DANIEL (VTI) 2.51 (2.5-4.5 cm2) Mitral Valve MV E Max [place]. 69.0 (40-130 cm/s) MV A Velocity 52.0 (40-130 cm/s) E/A Ratio 1.34 MV PHT 73.0 ms Left Ventricle The left ventricle is normal size. The left ventricular systolic function is mildly reduced. There is increased LV wall thickness. There is mild global hypokinesis present. The left ventricular diastolic function is normal. LVEF is 45%. Right Ventricle The right ventricle is mildly dilated. Right ventricle is mildly hypokinetic. Atria Left atrium is mildly dilated. The right atrium size is normal. There is no Doppler evidence of interatrial shunt. Aortic Valve The aortic valve is mildly thickened. There is no aortic valvular stenosis. No aortic regurgitation is present. Mitral Valve The mitral valve is normal in structure. No evidence of mitral valve stenosis. There is no mitral valve regurgitation noted. Tricuspid Valve Tricuspid valve is grossly normal in structure and function. Trace tricuspid regurgitation. There is insufficient TR jet to estimate RVSP. Pulmonic Valve The pulmonary valve is normal in structure. Trace pulmonic regurgitation. Great Vessels The aortic root is normal in size. IVC is normal in size and collapses >50% with inspiration. Pericardium There is no pericardial effusion. Other Information Study Quality: Fair Conclusion Mildly reduced LV systolic function (LVEF 45%). Mild RV dilation with mildly reduced RV function. Mild LA dilation. No significant valvular stenosis or regurgitation. Electronically signed by : Jennifer Joseph MD 01/09/2025 10:53:50
== END 2025-01-02 23:59 | disposition home or self-care (01) ==
LOC: RT 07:45
PROVIDERS: PCP Nurse Practitioner; Visit Provider Nurse Practitioner Family
DX: I51.7 Cardiomegaly (principal); R06.02 Shortness of breath; I50.32 Chronic diastolic (congestive) heart failure
CPT/HCPCS: 93306

== ENCOUNTER 2025-01-18 08:02 | Day surgery (SDC) | payer MEDICARE, OTHER, SELFPAY ==
[2025-01-18] VITALS (14 sets, daily range): BP systolic 94–142; BP diastolic 54–72; PULSE 58–70; RESP 16–18; O2SAT 90–98; BMI 24.9
--- NOTE | 2025-01-18 07:11 | IR_ITS ---
APPROVED REPORT Patient Location: Outpatient PROCEDURES Left heart catheterization Left ventriculogram Selective coronary angiogram Selective engagement of the left internal mammary artery to the LAD Selective engagement of the saphenous vein graft to the circumflex artery INDICATION Coronary artery disease, History of coronary bypass surgery, Worsening angina pectoris, Abnormal stress test Informed consent was obtained prior to the procedure. COMPLICATIONS NONE Estimated Blood Loss: LESS THAN 10 ML TECHNIQUE One percent lidocaine used to anesthetize the right groin. The right femoral artery was accessed via the Seldinger technique and a 5 [place] sheath was placed in the right femoral artery. A JL 4, JR4 catheter were used to perform left heart catheterization, left ventriculogram selective coronary angiography as well as selective engagement of the solitary vein graft and the left internal mammary artery. At the end of the procedure the patient was transferred to the postop holding area in stable condition for sheath removal. ANGIOGRAPHIC RESULTS The left main artery Normal The left anterior descending artery Ostially occluded The circumflex artery Has an ostial 60% stenosis. Competitive flow is identified in the large first obtuse marginal artery from saphenous vein graft The right coronary artery Nondominant with proximal 30% stenoses in mid vessel 30 and 40% stenoses The SANDERS ventriculogram reveals Preserved at 50% The left ventricular end-diastolic pressure Less than 10 mmHg HENRY to LAD widely patent Saphenous vein graft to OM1 is widely patent with excellent retrograde filling of the lower [place] circumflex artery IMPRESSION Adequate coronary revascularization as described above Preserved ejection fraction of 50% Normal LVEDP PLAN 1. Continue medical management Electronically signed by : Darell Chavez MD 01/18/2025 11:10:30
[2025-01-18 08:27] LABS: Basophils % 0.4 % (0.1-2.0); Eosinophils # 0.3 K/mm3 (0.0-0.4); Eosinophils % 3.4 % (0.1-12.0); Hematocrit 44.1 % (42.0-52.0); Hemoglobin 14.5 g/dL (14.1-18.0); Lymphocytes # 2.1 K/mm3 (0.7-4.5); Lymphocytes % 27.1 % (10-50); Mean Corpuscular HGB Conc 32.9 g/dL (31.8-35.4); Mean Corpuscular Hemoglobin 30.2 pg (27.0-31.2); Mean Corpuscular Volume 91.9 fl (80-94); Mean Platelet Volume 10.4 fl (7.4-10.4); Monocytes # 0.5 K/mm3 (0.1-1.0); Monocytes % 6.1 % (1.7-9.3); Neutrophils % 62.7 % (37.0-80.0); Platelet Count 176 K/mm3 (142-424); Red Cell Distribution Width 13.6 % (11.5-17.5); White Blood Count 7.9 K/mm3 (4.8-10.8)
[2025-01-18 08:47] LABS: Anion Gap 9.3 mEq/L (5-15); Blood Urea Nitrogen 14 mg/dl (9-20); Calcium 9.2 mg/dl (8.4-10.2); Carbon Dioxide 30 mmol/L (22.0-30.0); Chloride 105 mmol/L (98-107); Creatinine Clearance Estimated 66 mL/min (50-200); Estimated Glomerular Filt Rate 93 ml/min (>60); GFR (African American) 113 ML/MIN (>60); Glucose 95 mg/dl (74-100); Potassium 4.3 mmoL/L (3.5-5.1); Sodium 140 mmol/L (136-145)
[2025-01-18] MEDS: LIDOCAINE 1% 10ML MDV 20 ML IJ (10:45)
[2025-01-18] MEDS: MIDAZOLAM HCL 1MG/ML 5ML VIAL 1 MG IV (10:45)
[2025-01-18] MEDS: diphenhydrAMINE 50MG/ML VIAL 50 MG IV (10:45)
[2025-01-18] MEDS: HEPARIN 1,000 UNITS/500ML NS (CATH LAB) 3000 UNIT IV (10:46)
[2025-01-18] MEDS: FENTANYL 100MCG/2ML VIAL 50 MCG IV (10:46)
[2025-01-18] MEDS: 0.9 % SODIUM CHLORIDE 500 ML 25 ML IV (10:47)
--- NOTE | 2025-01-18 11:45 | SUR.PHASEII ---
pt resting supine at this time. dressing c/d/i. call light w/i reach. bed alarm in place.
--- NOTE | 2025-01-18 11:52 | SUR.PHASEII ---
Patient taken to ICU for recovery.
--- NOTE | 2025-01-18 13:45 | SUR.PHASEII ---
pt sitting up in bed eating lunch at this time. family at bedside.
[2025-01-18] MEDS: IOPAMIDOL-370 (76%);100ML BOTTLE 60 ML IV (14:19)
== END 2025-01-18 14:38 | disposition home or self-care (01) ==
PROVIDERS: PCP Nurse Practitioner; Visit Provider Internal Medicine
DX: I11.0 Hypertensive heart disease with heart failure (principal); I50.32 Chronic diastolic (congestive) heart failure; I25.118 Atherosclerotic heart disease of native coronary artery with other forms of angina pectoris; R94.39 Abnormal result of other cardiovascular function study; R06.02 Shortness of breath; I48.20 Chronic atrial fibrillation, unspecified; E78.5 Hyperlipidemia, unspecified; Z95.1 Presence of aortocoronary bypass graft; Z95.0 Presence of cardiac pacemaker; Z79.01 Long term (current) use of anticoagulants; Z79.84 Long term (current) use of oral hypoglycemic drugs; Z79.85 Long-term (current) use of injectable non-insulin antidiabetic drugs; I49.5 Sick sinus syndrome; Z79.899 Other long term (current) drug therapy
CPT/HCPCS: 80048; 85025; 93459; 99152; C1725; C1769; C1894; J1200; J1644; J3010; Q9967

== ENCOUNTER 2025-01-19 07:14 | Day surgery (SDC) | payer MEDICARE, OTHER, SELFPAY ==
[2025-01-19 07:28] VITALS: BP 130/63; PULSE 71; RESP 20; TEMP 36.6; O2SAT 97
[2025-01-19 07:36] VITALS: BMI 25.2
[2025-01-19] MEDS: 0.9 % SODIUM CHLORIDE 500 ML 25 ML IV (08:20)
[2025-01-19] MEDS: LIDOCAINE 2% UROJET 10ML 10 ML (08:20)
[2025-01-19 08:23] VITALS: BP 114/65; PULSE 70; RESP 18; TEMP 36.4; O2SAT 98
--- NOTE | 2025-01-19 08:24 | [facility].PROCNOTE ---
[facility] Procedure Note Date: 01/19/25 Time: 08:24 Procedure Note:: Chart review: The patient in the past has been in the urinary retention. He is currently on Flomax but has had what he feels is marginal efficacy. The last residual urine on 01/22 was 114 cc. Today the catheterized residual urine is 1 ounce. He is here for cystoscopy to see if prostate surgery might help. Patient in the past has been troubled with balanitis and hematuria. The hematuria is likely from the indwelling Frank catheter when I first saw him. Preop diagnosis bladder outlet obstruction Postop diagnosis: Bladder outlet obstruction Procedure: The patient was brought to the cystoscopy suite. A catheterized urine sample has been taken. This will be set up for urine analysis and culture and sensitivity. The patient's anterior urethra is unremarkable. His balanitis has cleared with treatment. From the level of the verumontanum the patient has some trilobar obstruction. His bladder is heavily trabeculated with small diverticuli noted. There is debris floating in the bladder. From what I can see with the noted debris, I do not appreciate bladder stone tumor hemorrhage or infection. If the patient does not show efficacy with Flomax, he could be considered for laser prostate surgery. He has a small median lobe that might create an issue for UroLift.
== END 2025-01-19 08:45 | disposition home or self-care (01) ==
PROVIDERS: PCP Family Medicine; Visit Provider Urology
PROC: 0TJB8ZZ Inspection of Bladder, Via Natural or Artificial Opening Endoscopic (ICD-10-PCS; CPT 52000; principal; 2025-01-19 08:45)
DX: N40.1 Benign prostatic hyperplasia with lower urinary tract symptoms (principal); N13.8 Other obstructive and reflux uropathy; R33.9 Retention of urine, unspecified
CPT/HCPCS: 52000; 87086; 87088; 87186

== ENCOUNTER 2025-01-25 11:00 | Outpatient (CLI) | payer MEDICARE, OTHER, SELFPAY ==
[2025-01-25 11:36] LABS: Basophils % 0.2 % (0.1-2.0); Eosinophils # 0.2 K/mm3 (0.0-0.4); Eosinophils % 3.4 % (0.1-12.0); Hematocrit 41.3 % (42.0-52.0); Hemoglobin 13.4 g/dL (14.1-18.0); Lymphocytes # 1.2 K/mm3 (0.7-4.5); Lymphocytes % 22.3 % (10-50); Mean Corpuscular HGB Conc 32.4 g/dL (31.8-35.4); Mean Corpuscular Hemoglobin 29.7 pg (27.0-31.2); Mean Corpuscular Volume 91.6 fl (80-94); Mean Platelet Volume 11.1 fl (7.4-10.4); Monocytes # 0.3 K/mm3 (0.1-1.0); Monocytes % 5.7 % (1.7-9.3); Neutrophils # 3.6 K/mm3 (1.8-7.8); Neutrophils % 68.4 % (37.0-80.0); Platelet Count 150 K/mm3 (142-424); Red Blood Count 4.51 M/mm3 (4.60-6.20); Red Cell Distribution Width 13.3 % (11.5-17.5); White Blood Count 5.3 K/mm3 (4.8-10.8)
[2025-01-25 12:19] LABS: Alanine Aminotransferase 15 U/L (12-78); Albumin Level 3.9 g/dl (3.5-5.0); Alkaline Phosphatase 93 U/L (38-126); Anion Gap 15.3 mEq/L (5-15); Aspartate Amino Transferase 21 U/L (17-59); Bilirubin,Direct 0.3 mg/dl (0.0-0.4); Bilirubin,Indirect 0.1 mg/dL (0.0-0.9); Bilirubin,Total 0.4 mg/dl (0.2-1.3); Bilirubin,Unconjugated 0.2 mg/dL (0.0-1.1); Blood Urea Nitrogen 13 mg/dl (9-20); Calcium 9.4 mg/dl (8.4-10.2); Carbon Dioxide 28 mmol/L (22.0-30.0); Chloride 100 mmol/L (98-107); Chol/HDL Ratio 3.6 (1-3.5); Cholesterol 114 mg/dl (140-200); Estimated Glomerular Filt Rate 82 ml/min (>60); GFR (African American) 99 ML/MIN (>60); Glucose 130 mg/dl (74-100); HDL Cholesterol 32 mg/dl (40-60); Potassium 4.3 mmoL/L (3.5-5.1); Sodium 139 mmol/L (136-145); Total Protein,Serum 6.2 g/dl (6.3-8.2); Triglycerides 133 mg/dl (30-150); VLDL Cholesterol 27 mg/dL (0-40)
[2025-01-25 12:30] LABS: Direct LDL Cholesterol 55.43 mg/dL (100-129)
[2025-01-25 12:37] LABS: Free T4 (Free Thyroxine) 0.88 ng/dl (0.78-2.19)
[2025-01-25 12:49] LABS: Thyroid Stimulating Hormone 3.04 uIU/mL (0.465-4.68)
== END 2025-01-25 23:59 | disposition home or self-care (01) ==
LOC: LAB 11:01
PROVIDERS: PCP Family Medicine; Visit Provider Nurse Practitioner
DX: I20.89 Other forms of angina pectoris (principal); I50.32 Chronic diastolic (congestive) heart failure; E11.69 Type 2 diabetes mellitus with other specified complication; Z79.4 Long term (current) use of insulin; E78.5 Hyperlipidemia, unspecified
CPT/HCPCS: 36415; 80048; 80061; 80076; 84439; 84443; 85025

== ENCOUNTER 2025-04-04 07:43 | Outpatient (CLI) | payer MEDICARE, OTHER, SELFPAY ==
--- OUTSIDE RECORDS SUMMARY | 2025-03-07 06:46 | XMS_ITS | Continuity of Care Document ---
Author Organization [facility] Phone Care Team Providers Care Automotive Worker Foreman Name Role Phone JER METZGER Primary Care SIOBHAN HARRIS Admitting SIOBHAN HARRIS Primary Attending ALLERGIES AND ADVERSE REACTIONS ALLERGIES AND ADVERSE REACTIONS Code System Allergy Substance Adverse Reaction Date Reaction (Severity) Comment Status Reported By Updated By 7925 RXNorm PENICILLIN Rash active [id number] on April 05, 2024 6:15:26 PM UTC 3640 RXNorm DOXYCYCLINE August 10, 2024 4:00:00 AM UTC Rash (Moderate) active Patient [id number] on August 25, 2024 6:30:06 PM UT FAMILY HISTORY RELATION: Father Status: Cause of : Unknown Age at : Unknown SNOMED-CT Diagnosis Age At Onset Information not available RELATION: Mother Status: Cause of : Unknown Age at : Unknown SNOMED-CT Diagnosis Age At Onset [id number] Diabetes mellitus RESULTS Patient: MATTEO JESUS Date of : August 11 LABORATORY RESULTS ORDER 100: CBC AUTO W DIFF ( LOINC: 27345-8) ORDER DATE: January 31, 2025 8:42:00 PM UT Specimen Source: EDTA Specimen Type: Blood specime n with EDTA PERFORMING LAB: [address] [id number] Result Comment: Final Result Date: February 01, 2025 1:12:00 PM UT (TECH: ADB) LOINC TEST FLAG RESULT REFERENCE RANGE UPDA AMENA BY 6690-2 Leukocytes [#/volume] in Blood by Automated count N 6.4 K/ul 4.0 K/ul - 10.5 K/ul February 01, 2025 1:12:00 PM UT (TECH: ADB) 789-8 Erythrocytes [#/volume] in Blood by Automated count L 4.6 M/mm3 4.7 M/mm3 - 6.1 M/mm3 February 01, 2025 1:12:00 PM UTC (TECH: ADB) 718-7 Hemoglobin [Mass/volume] in Blood N 13.6 gm/dl 13.5 gm/dl - 18.0 gm/dl February 01, 2025 1:12:00 PM UTC (TECH: ADB) 24403-3 Hematocrit [Volume Fraction] of Blood L 41.4 % 42.0 % - 52.0 % February 01, 2025 1:12:00 PM UTC (TECH: ADB) 787-2 Erythrocyte mean corpuscular volume [Entitic volume] by Automated count N 91.0 fl 78 fl - 100 fl February 01, 2025 1:12:00 PM UTC (TECH: ADB) 785-6 Erythrocyte mean corpuscular hemoglobin [Entitic mass] by Automated count N 29.9 pg 27 pg - 31 pg February 01, 2025 1:12:00 PM UTC (TECH: ADB) 786-4 Erythrocyte mean corpuscular hemoglobin concentration [Mass/volume] by Automated count N 32.9 g/dl 32 g/dl - 36 g/dl February 01, 2025 1:12:00 PM UTC (TECH: ADB) 26703-7 Erythrocyte distribution width [Ratio] N 13.7 % 11.5 % - 14.0 % February 01, 2025 1:12:00 PM UTC (TECH: ADB) 777-3 Platelets [#/volume] in Blood by Automated count N 179 K/ul 150 K/ul - 450 K/ul February 01, 2025 1:12:00 PM UTC (TECH: ADB) 60357-2 Platelet mean volume [Entitic volume] in Blood by Automated count H 10.3 fl 6 fl - 9.5 fl February 01, 2025 1:12:00 PM UTC (TECH: ADB) 58630-0 Neutrophils/100 leukocytes in Blood N 63.2 % 43 % - 65 % February 01 1:12:00 PM UTC (TECH: ADB) 736-9 Lymphocytes/100 leukocytes in Blood by Automated count N 26.4 % 20.5 % - 45.5 % February 01, 2025 1:12:00 PM UTC (TECH: ADB) 5905-5 Monocytes/100 leukocytes in Blood by Automated count N 6.2 % 5.5 % - 11.7 % February 01, 2025 1:12:00 PM UTC (TECH: ADB) 713-8 Eosinophils/100 leukocytes in Blood by Automated count H 3.4 % 0.9 % - 2.9 % February 01, 2025 1:12:00 PM UTC (TECH: ADB) 706-2 Basophils/100 leukocytes in Blood by Automated count N 0.3 % 0.2 % - 1.0 % February 01, 2025 1:12:00 PM UTC (TECH: ADB) 89828-7 Immature granulocytes/100 leukocytes in Blood by Automated count N 0.5 % 0.0 % - 0.8 % February 01, 2025 1:12:00 PM UTC (TECH: ADB) 15734-8 Nucleated cells [#/volume] in Blood N 0.0 % February 01 1:12:00 PM UTC (TECH: ADB) 54604-5 Neutrophils [#/volume] in Blood N 4.1 K/uL 2.2 K/uL - 4.8 K/uL February 01, 2025 1:12:00 PM UTC (TECH: ADB) 731-0 Lymphocytes [#/volume] in Blood by Automated count N 1.7 CELL/MCL 1.3 CELL/MCL - 2.9 CELL/MCL February 01, 2025 1:12:00 PM UTC (TECH: ADB) 742-7 Monocytes [#/volume] in Blood by Automated count N 0.4 CELL/MCL 0.3 CELL/MCL - 0.8 CELL/MCL February 01, 2025 1:12:00 PM UTC (TECH: ADB) 711-2 Eosinophils [#/volume] in Blood by Automated count N 0.2 CELL/MCL 0 CELL/MCL - 0.2 CELL/MCL February 01, 2025 1:12:00 PM UTC (TECH: ADB) 704-7 Basophils [#/volume] in Blood by Automated count N 0.0 CELL/MCL 0.0 CELL/MCL - 1.0 CELL/MCL February 01, 2025 1:12:00 PM UTC (TECH: [employer]ef[employer]) 34771-6 Immature granulocytes [#/volume] in Blood N 0.03 K/ul February 01 1:12:00 PM UT (TECH: [employer]) 32953-7 Nucleated cells [#/volume] in Blood N 0.00 K/uL February 01 1:12:00 PM UT (TECH: [employer]) 51548-3 Manual Differential panel - Blood N NO February 01, 2025 1:12:00 PM UT (TECH: [employer]) ORDER 200: COMP METABOLIC PA JORGE (LOINC: 02393-3) ORDER DATE: January 31, 2025 8:42:00 PM UT Specimen Source: PLASMA Specimen Type: Plasma specim en PERFORMING LAB: [address] [id number] Result Comment: Final Result Date: February 01, 2025 1:31:00 PM UT (TECH: [employer]) LOINC TEST FLAG RESULT REFERENCE RANGE UPDA AMENA BY 2951-2 Sodium [Moles/volume ] in Serum or Plasma N 138 mmol/L 136 mmol/L - 145 mmol/L February 01, 2025 1:31:00 PM UT (TECH: [employer]) 2823-3 Potassium [Moles/volume] in Serum or Plasma N 4.1 mmol/L 3.6 mmol/L - 5.0 mmol/L February 01, 2025 1:31:00 PM UT (TECH: [employer]) 2075-0 Chloride [Moles/volu me] in Serum or Plasma N 101 mmol/L 98 mmol/L - 107 mmol/L February 01, 2025 1:31:00 PM UT (TECH: [employer]) 8-9 Carbon dioxide, tota l [Moles/volume] in Serum or Plasma N 31.1 mmol/L 21.0 mmol/L - 32.0 mmol/L February 01, 2025 1:31:00 PM UT (TECH: [employer]) 77149-2 Anion gap in Blood N 10.0 A pril 2024 1:31:00 PM UTC (TECH: [employer]) 2345-7 Glucose [Mass/volume ] in Serum or Plasma L 65 mg/dl 70 mg/dl - 120 mg/dl February 01, 2025 1:31:00 PM [facility] (TECH: [employer]) 6299-2 Urea nitrogen [Mass/volume] in Blood N 12 mg/dL 7 mg/dL - 18 mg/dL February 01, 2025 1:31:00 PM [facility] (TECH: [employer]) 43542-0 Creatinine [Moles/volume] in Blood N 1.2 mg/dL 0.6 mg/dL - 1.3 mg/dL February 01, 2025 1:31:00 PM [facility] (TECH: [employer]) 62000-2 Glomerular filtratio n rate/1.73 sq M.predicted by Creatinine-based formula (MDRD) N 62 mlpermin 60 mlpermin February 01, 2025 1:31:00 PM [facility] (TECH: [employer]) 30888-9 Osmolality of Serum or Plasma by calculated by sum of electrolytes N 285 mosm/kg 275 mosm/kg - 301 mosm/kg February 01, 2025 1:31:00 PM [facility] (TECH: [employer]) 2885-2 Protein [Mass/volume ] in Serum or Plasma N 7.2 g/dl 6.4 g/dl - 8.2 g/dl February 01, 2025 1:31:00 PM [facility] (TECH: [employer]) 1751-7 Albumin [Mass/volume ] in Serum or Plasma N 3.7 g/dl 3.4 g/dl - 5.0 g/dl February 01, 2025 1:31:00 PM [facility] (TECH: [employer]) 2336-6 Globulin [Mass/volum e] in Serum N 3.5 February 01, 2025 1:31:00 PM [facility] (TECH: [employer]) 1759-0 Albumin/Globulin [Ma ss Ratio] in Serum or Plasma N 1.1 0.7 - 2 February 01, 2025 1:31:00 PM [facility] (TECH: [employer]) 47279-5 Calcium [Mass/volume ] in Serum or Plasma N 8.5 mg/dl 8.5 mg/dl - 10.5 mg/dl February 01, 2025 1:31:00 PM [facility] (TECH: [employer]) 1975-2 Bilirubin.total [Mass/volume] in Serum or Plasma N 0.30 mg/dL 0.10 mg/dL - 1.00 mg/dL February 01, 2025 1:31:00 PM UT (TECH: [employer]) 1920-8 Aspartate aminotransferase [Enzymatic activity/volume] in Serum or Plasma N 14 U/L 0 U/L - 37 U/L February 01, 2025 1:31:00 PM UT (TECH: [employer]) 1742-6 Alanine aminotransferase [Enzymatic activity/volume] in Serum or Plasma N 16 U/L 0 U/L - 65 U/L February 01, 2025 1:31:00 PM UT (TECH: [employer]) 6768-6 Alkaline phosphatase [Enzymatic activity/volume] in Serum or Plasma H 132 U/L 46 U/L - 116 U/L February 01, 2025 1:31:00 PM UT (TECH: [employer]) ORDER 300: THYROID PANEL W/T SH (LOINC: 46560-9) ORDER DATE: January 31, 2025 8:42:00 PM UT Specimen Source: PLASMA Specimen Type: Plasma specim en PERFORMING LAB: [address] [id number] Result Comment: Final Result Date: February 01, 2025 1:31:00 PM [facility] (TECH: [employer]) LOINC TEST FLAG RESULT REFERENCE RANGE UPDA AMENA BY 3050-2 Triiodothyronine res in uptake (T3RU) in Serum or Plasma N 31.00 % 24.00 % - 39.00 % February 01, 2025 1:31:00 PM [facility] (TECH: [employer]) 3025-4 Thyroxine (T4) [Mass/volume] in Blood N 6.5 MCG/DL 4.5 MCG/DL - 12.1 MCG/DL February 01, 2025 1:31:00 PM [facility] (TECH: [employer]) 01739-0 Thyroxine (T4) free index in Serum or Plasma N 2.02 1.60 - 3.70 February 01, 2025 1:31:00 PM [facility] (TECH: [employer]) 3016-3 Thyrotropin [Units/volume] in Serum or Plasma N 2.10 mIU/L 0.36 mIU/L - 3.74 mIU/L February 01, 2025 1:31:00 PM UT (TECH: [employer]) ORDER 400: CORTISOL (LOINC: 2143-6) ORDER DATE: January 31, 2025 8:42:00 PM UTC Specimen Source: SERUM Specimen Type: Serum specime n PERFORMING LAB: [address] [id number] Result Comment: February 02 10:09:00 AM UTC Please Note: The reference interval and flagging for Result Comment: February 02, 2025 10:09:00 AM UTC this test is for an AM collection. If this is a PM Result Comment: February 02, 2025 10:09:00 AM UTC collection please use: Cortisol PM: 2.3-11.9 Result Comment: February 02, 2025 10:09:00 AM UTC Performed at: [facility] Result Comment: February 02, 2025 10:09:00 AM UTC [address] [place] [id number] Result Comment: February 02, 2025 10:09:00 AM UTC Foundry Hand: Luis Doe PhD, Phone: [phone] Result Comment: February 02, 2025 10:09:00 AM UTC Final Result Date: February 02, 2025 12:35:00 PM UTC (TECH: LAB) LOINC TEST FLAG RESULT REFERENCE RANGE UPDA AMENA BY 2143-6 Cortisol [Mass/volume] in Serum or Plasma N 12.3 ug/dL 6.2 ug/dL - 19.4 ug/dL February 02, 2025 12:35:00 PM UTC (TECH: LAB) ORDER 500: MAGNESIUM (LOINC: 10509-8) ORDER DATE: February 01, 2025 1:29:00 PM UTC Specimen Source: PLASMA Specimen Type: Plasma specim en PERFORMING LAB: [address] [id number] Result Comment: Final Result Date: February 01, 2025 1:54:00 PM UTC (TECH: [facility]) LOINC TEST [place] [address]-5 Magnesium [Mass/volume] in Serum or Plasma N 1.8 MG/DL 1.8 MG/DL - 2.4 MG/DL February 01, 2025 1:54:00 PM UTC (TECH: [facility]MC) ORDER 600: VITAMIN B12 AND F OLATE (LOINC: 2132-9) ORDER DATE: February 01, 2025 1:29:00 PM UTC Specimen Source: PLASMA Specimen Type: Plasma specim en PERFORMING LAB: [address] [id number] Result Comment: Final Result Date: February 01, 2025 2:27:00 PM UTC (TECH: [employer]) LOINC TEST FLAG RESULT REFERENCE RANGE UPDA AMENA BY 2132-9 Cobalamin (Vitamin B12) [Mass/volume] in Serum or Plasma N 602 pg/mL 193 pg/mL - 986 pg/mL February 01, 2025 2:27:00 PM UTC (TECH: [employer]) 2284-8 Folate [Mass/volume] in Serum or Plasma N 9.4 ng/mL 8.6 ng/mL - 58.9 ng/mL February 01, 2025 2:27:00 PM UTC (TECH: [employer]) ORDER 700: CBC AUTO W DIFF ( LOINC: 79602-0) ORDER DATE: February 21, 2025 8:23:00 PM UTC Specimen Source: EDTA Specimen Type: Blood specime n with EDTA PERFORMING LAB: [address] [id number] Result Comment: Final Result Date: February 22, 2025 12:42:00 PM UTC (TECH: [employer]) LOINC TEST FLAG RESULT REFERENCE RANGE UPDA AMENA BY 6690-2 Leukocytes [#/volume] in Blood by Automated count N 7.6 K/ul 4.0 K/ul - 10.5 K/ul February 22, 2025 12:42:00 PM UTC (TECH: [employer]) 789-8 Erythrocytes [#/volume] in Blood by Automated count N 4.8 M/mm3 4.7 M/mm3 - 6.1 M/mm3 February 22, 2025 12:42:00 PM UTC (TECH: [employer]) 718-7 Hemoglobin [Mass/volume] in Blood N 14.2 gm/dl 13.5 gm/dl - 18.0 gm/dl February 22, 2025 12:42:00 PM UTC (TECH: [employer]) 07141-2 Hematocrit [Volume Fraction] of Blood N 43.2 % 42.0 % - 52.0 % February 22 12:42:00 PM UTC (TECH: [employer]) 787-2 Erythrocyte mean corpuscular volume [Entitic volume] by Automated count N 89.6 fl 78 fl - 100 fl February 22, 2025 12:42:00 PM UTC (TECH: JNJ) 785-6 Erythrocyte mean corpuscular hemoglobin [Entitic mass] by Automated count N 29.5 pg 27 pg - 31 pg February 22, 2025 12:42:00 PM UTC (TECH: JNJ) 786-4 Erythrocyte mean corpuscular hemoglobin concentration [Mass/volume] by Automated count N 32.9 g/dl 32 g/dl - 36 g/dl February 22, 2025 12:42:00 PM UTC (TECH: JNJ) 05680-2 Erythrocyte distribution width [Ratio] N 13.4 % 11.5 % - 14.0 % February 22, 2025 12:42:00 PM UTC (TECH: JNJ) 777-3 Platelets [#/volume] in Blood by Automated count N 171 K/ul 150 K/ul - 450 K/ul February 22, 2025 12:42:00 PM UTC (TECH: JNJ) 72726-9 Platelet mean volume [Entitic volume] in Blood by Automated count H 10.7 fl 6 fl - 9.5 fl February 22, 2025 12:42:00 PM UTC (TECH: JNJ) 70716-9 Neutrophils/100 leukocytes in Blood N 63.7 % 43 % - 65 % February 22 12:42:00 PM UTC (TECH: JNJ) 736-9 Lymphocytes/100 leukocytes in Blood by Automated count N 26.4 % 20.5 % - 45.5 % February 22 12:42:00 PM UTC (TECH: JNJ) 5905-5 Monocytes/100 leukocytes in Blood by Automated count N 5.9 % 5.5 % - 11.7 % February 22 12:42:00 PM UTC (TECH: JNJ) 713-8 Eosinophils/100 leukocytes in Blood by Automated count H 3.4 % 0.9 % - 2.9 % February 22 12:42:00 PM UTC (TECH: JNJ) 706-2 Basophils/100 leukocytes in Blood by Automated count N 0.3 % 0.2 % - 1.0 % February 22 12:42:00 PM UTC (TECH: JNJ) 84116-5 Immature granulocytes/100 leukocytes in Blood by Automated count N 0.3 % 0.0 % - 0.8 % February 22 12:42:00 PM UTC (TECH: [employer]) 87226-3 Nucleated cells [#/volume] in Blood N 0.0 % February 22 12:42:00 PM UTC (TECH: [employer]) 79749-1 Neutrophils [#/volume] in Blood N 4.8 K/uL 2.2 K/uL - 4.8 K/uL February 22, 2025 12:42:00 PM UTC (TECH: [employer]) 731-0 Lymphocytes [#/volume] in Blood by Automated count N 2.0 CELL/MCL 1.3 CELL/MCL - 2.9 CELL/MCL February 22, 2025 12:42:00 PM UTC (TECH: [employer]) 742-7 Monocytes [#/volume] in Blood by Automated count N 0.5 CELL/MCL 0.3 CELL/MCL - 0.8 CELL/MCL February 22, 2025 12:42:00 PM UTC (TECH: [employer]) 711-2 Eosinophils [#/volume] in Blood by Automated count H 0.3 CELL/MCL 0 CELL/MCL - 0.2 CELL/MCL February 22, 2025 12:42:00 PM UTC (TECH: [employer]) 704-7 Basophils [#/volume] in Blood by Automated count N 0.0 CELL/MCL 0.0 CELL/MCL - 1.0 CELL/MCL February 22, 2025 12:42:00 PM UTC (TECH: [employer]) 33163-8 Immature granulocytes [#/volume] in Blood N 0.02 K/ul February 22 12:42:00 PM UTC (TECH: [employer]) 29105-2 Nucleated cells [#/volume] in Blood N 0.00 K/uL February 22 12:42:00 PM UT (TECH: [employer]) 15007-7 Manual Differential panel - Blood N NO February 22, 2025 12:42:00 PM UTC (TECH: [employer]) ORDER 800: COMP METABOLIC PA JORGE (LOINC: 90360-3) ORDER DATE: February 21, 2025 8:23:00 PM UTC Specimen Source: PLASMA Specimen Type: Plasma specim en PERFORMING LAB: [place] [id number] [facility] [id number] Result Comment: Final Result Date: February 22, 2025 1:01:00 PM UT (TECH: JCG) LOINC TEST FLAG RESULT REFERENCE RANGE UPDA AMENA BY 2951-2 Sodium [Moles/volume ] in Serum or Plasma N 140 mmol/L 136 mmol/L - 145 mmol/L February 22, 2025 1:01:00 PM UTC (TECH: JCG) 2823-3 Potassium [Moles/volume] in Serum or Plasma N 3.7 mmol/L 3.6 mmol/L - 5.0 mmol/L February 22, 2025 1:01:00 PM UT (TECH: JCG) 2075-0 Chloride [Moles/volu me] in Serum or Plasma N 100 mmol/L 98 mmol/L - 107 mmol/L February 22, 2025 1:01:00 PM UTC (TECH: JCG) 8-9 Carbon dioxide, tota l [Moles/volume] in Serum or Plasma H 33.0 mmol/L 21.0 mmol/L - 32.0 mmol/L February 22, 2025 1:01:00 PM UT (TECH: JCG) 80896-3 Anion gap in Blood N 10.7 A pril 2024 1:01:00 PM UTC (TECH: JCG) 2345-7 Glucose [Mass/volume ] in Serum or Plasma H 143 mg/dl 70 mg/dl - 120 mg/dl February 22, 2025 1:01:00 PM UTC (TECH: JCG) 6299-2 Urea nitrogen [Mass/volume] in Blood N 17 mg/dL 7 mg/dL - 18 mg/dL February 22, 2025 1:01:00 PM UTC (TECH: JCG) 02801-2 Creatinine [Moles/volume] in Blood N 1.2 mg/dL 0.6 mg/dL - 1.3 mg/dL February 22, 2025 1:01:00 PM UTC (TECH: JCG) 66348-2 Glomerular filtratio n rate/1.73 sq M.predicted by Creatinine-based formula (MDRD) N 62 mlpermin 60 mlpermin February 22, 2025 1:01:00 PM [facility] (TECH: [employer]) 71372-0 Osmolality of Serum or Plasma by calculated by sum of electrolytes N 295 mosm/kg 275 mosm/kg - 301 mosm/kg February 22, 2025 1:01:00 PM [facility] (TECH: JCG) 2885-2 Protein [Mass/volume ] in Serum or Plasma N 7.5 g/dl 6.4 g/dl - 8.2 g/dl February 22, 2025 1:01:00 PM UT (TECH: [employer]) 1751-7 Albumin [Mass/volume ] in Serum or Plasma N 3.4 g/dl 3.4 g/dl - 5.0 g/dl February 22, 2025 1:01:00 PM UT (TECH: JCG) 2336-6 Globulin [Mass/volum e] in Serum N 4.1 February 22, 2025 1:01:00 PM [facility] (TECH: [employer]) 1759-0 Albumin/Globulin [Ma ss Ratio] in Serum or Plasma N 0.8 0.7 - 2 February 22, 2025 1:01:00 PM UT (TECH: [employer]) 45356-1 Calcium [Mass/volume ] in Serum or Plasma N 9.3 mg/dl 8.5 mg/dl - 10.5 mg/dl February 22, 2025 1:01:00 PM [facility] (TECH: [employer]) 1975-2 Bilirubin.total [Mass/volume] in Serum or Plasma N 0.70 mg/dL 0.10 mg/dL - 1.00 mg/dL February 22, 2025 1:01:00 PM UT (TECH: JCG) 1920-8 Aspartate aminotransferase [Enzymatic activity/volume] in Serum or Plasma N 15 U/L 0 U/L - 37 U/L February 22, 2025 1:01:00 PM UT (TECH: JCG) 1742-6 Alanine aminotransferase [Enzymatic activity/volume] in Serum or Plasma N 25 U/L 0 U/L - 65 U/L February 22, 2025 1:01:00 PM UT (TECH: JCG) 6768-6 Alkaline phosphatase [Enzymatic activity/volume] in Serum or Plasma H 150 U/L 46 U/L - 116 U/L February 22, 2025 1:01:00 PM UTC (TECH: [employer]) ORDER 900: THYROID PANEL W/T SH (LOINC: 84970-2) ORDER DATE: February 21, 2025 8:23:00 PM UTC Specimen Source: PLASMA Specimen Type: Plasma specim en PERFORMING LAB: [address] [id number] Result Comment: Final Result Date: February 22, 2025 1:01:00 PM UTC (TECH: [employer]) LOINC TEST FLAG RESULT REFERENCE RANGE UPDA AMENA BY 3050-2 Triiodothyronine res in uptake (T3RU) in Serum or Plasma N 33.00 % 24.00 % - 39.00 % February 22, 2025 1:01:00 PM UTC (TECH: [employer]) 3025-4 Thyroxine (T4) [Mass/volume] in Blood N 7.0 MCG/DL 4.5 MCG/DL - 12.1 MCG/DL February 22, 2025 1:01:00 PM UTC (TECH: [employer]) 63124-3 Thyroxine (T4) free index in Serum or Plasma N 2.31 1.60 - 3.70 February 22, 2025 1:01:00 PM UTC (TECH: [employer]) 3016-3 Thyrotropin [Units/volume] in Serum or Plasma N 2.86 mIU/L 0.36 mIU/L - 3.74 mIU/L February 22, 2025 1:01:00 PM UTC (TECH: JCG) ORDER 1000: CORTISOL (LOINC: 2143-6) ORDER DATE: February 21, 2025 8:23:00 PM UTC Specimen Source: SERUM Specimen Type: Serum specime n PERFORMING LAB: [address] [id number] Result Comment: February 23 12:11:00 PM UTC Please Note: The reference interval and flagging for Result Comment: February 23, 2025 12:11:00 PM UTC this test is for an AM collection. If this is a PM Result Comment: February 23, 2025 12:11:00 PM UTC collection please use: Cortisol PM: 2.3-11.9 Result Comment: February 23, 2025 12:11:00 PM UTC Performed at: [facility] Result Comment: February 23, 2025 12:11:00 PM [facility] [address] [place], [place] [id number] Result Comment: February 23, 2025 12:11:00 PM [facility] Foundry Hand: Luis Doe PhD, Phone: [phone] Result Comment: February 23, 2025 12:11:00 PM UT Final Result Date: February 23, 2025 12:14:00 PM UT (TECH: LAB) LOINC TEST FLAG RESULT REFERENCE RANGE UPDA AMENA BY 2143-6 Cortisol [Mass/volume] in Serum or Plasma N 9.0 ug/dL 6.2 ug/dL - 19.4 ug/dL February 23, 2025 12:14:00 PM UT (TECH: LAB) LABORATORY NARRATIVE RESULTS Information is not available RADIOLOGY RESULTS Information is not available PATHOLOGY NARRATIVE RESULTS Information is not available MICROBIOLOGY RESULTS No Micro Labs/Results Exist for Patient BLOOD ADMIN RESULTS Information is not available MEDICATIONS HOME MEDICATIONS Status RXNORM ILC Medication Dose Route Frequency Dates Comments Reported By Updated By Active [id number] 50517 76754 8 Albuterol Sulfate HFA Inhalation Aerosol Solution 108 (90 Base) MCG/ACT 0.0 Last Dose: [id number] on February 01, 2025 1:01:57 PM UT Active 494354 90775 99775 0 Atorvastatin Calcium Oral Tablet 80 MG 1.0 TAB ORAL BEDTIME Last Dose: [id number] on February 01, 2025 1:08:02 PM UT Active 6135218 26918 29252 1 Eliquis Oral Tablet 5 MG 1.0 TAB ORAL BID Last Dose: [id number] on February 01, 2025 1:09:42 PM UT Active 0395212 61217 46737 0 Linzess Oral Capsule 145 MCG 1.0 TAB ORAL DAILY Last Dose: [id number] on February 01, 2025 1:10:31 PM UT Active 635931 22209 72966 0 Losartan Potassium Oral Tablet 50 MG 1.0 TAB ORAL DAILY Last Dose: [id number] on February 01, 2025 1:11:05 PM UT Active 135711 36509 09261 6 Magnesium Oxide -Mg Supplement Oral Capsule 400 MG 1.0 TAB ORAL DAILY Last Dose: [id number] on February 01, 2025 1:01:57 PM UT Active 799376 36643 14430 1 metFORMIN HCl ER Oral Tablet Extended Release 24 Hour 750 MG 1.0 TAB ORAL BIDWM Last Dose: [id number] on February 01, 2025 1:01:58 PM [facility] Active 466306 96156 37216 1 Nystatin External Cream 467466 UNIT/GM 0.0 Last Dose: [id number] on February 01, 2025 1:01:58 PM [facility] Active 783820 72718 93289 3 Ondansetron HCl Oral Tablet 8 MG 1.0 TAB ORAL BID Last Dose: [id number] on February 01, 2025 1:11:57 PM UT Active 171365 97535 60551 1 Tamsulosin HCl Oral Capsule 0.4 MG 1.0 TAB ORAL DAILY Last Dose: [id number] on February 01, 2025 1:01:58 PM UT Active 3388517 14148 03439 1 Trulicity Subcutaneous Solution Auto-injecto r 1.5 MG/0.5ML 1.5 MG SUBCUT ANEOUS QWEEK Last Dose: [id number] on February 01, 2025 1:01:58 PM [facility] Active 36093 89488 1 Aspirin 81 Oral Tablet Delayed Release 81 MG 1.0 TAB ORAL DAILY Last Dose: [id number] on February 01, 2025 1:12:47 PM UT Active 0200632 95028 85675 1 Cetirizine HCl Oral Tablet 10 MG 1.0 TAB ORAL DAILY Last Dose: [id number] on February 01, 2025 1:13:13 PM [facility] DISCHARGE MEDICATIONS Status RXNORM [facility] Medication Dose Route Frequency Dates Comments Physician Updated By No Discharge Medication Info rmation Available INPATIENT MEDICATIONS Status [facility] Medication Dose Route Frequency Rat e Quantity Dates Comments Physician Updated By Elysia inued [id number] 3685 6302 602 pembrolizum ab (KEYTRUDA) 100 MG/4ML SOLN 200.0 MG INTRAV ENOUS ONE TIME ADMINISTRA TION (UNSCHEDUL ED) 236.0 ML/HR Start: January 26, 2025 4:44:0 0 PM [place] End: January 26, 2025 4:49:1 1 PM [facility] RACHEAL Borjas [id number] on January 26, 2025 4:49:00 PM [place] Elysia inued [id number] 167 sodium chloride 0.9% SOLN 100.0 ML INTRAV ENOUS ONE TIME ADMINISTRA TION (UNSCHEDUL ED) 236.0 ML/HR Start: January 26, 2025 4:44:0 0 PM UTC End: January 26, 2025 4:49:1 1 PM UTC RACHEAL Borjas [id number] on January 26, 2025 4:49:00 PM UTC Discont inued [id number] [phone] cyanocobala min (VITAMIN B-12) 1000 MCG/ML SOLN 1000. 0 MCG SUBCUT ANEOUS ONE TIME ADMINISTRA TION (UNSCHEDUL ED) Start: January 26, 2025 4:44:0 0 PM UTC End: January 26, 2025 4:44:5 2 PM UTC RACHEAL Borjas AALLEN on January 26, 2025 4:49:00 PM UTC Discont inued [id number] cyanocobala min (VITAMIN B-12) 1000 MCG/ML SOLN 1000. 0 MCG SUBCUT ANEOUS ONE TIME ADMINISTRA TION (UNSCHEDUL ED) Start: February 01, 2025 12:00: 00 PM UTC End: February 01, 2025 1:33:5 5 PM UTC RACHEAL Borjas [id number] on February 01, 2025 1:33:00 PM UTC Discont inued [id number] pembrolizum ab (KEYTRUDA) 100 MG/4ML SOLN 200.0 MG INTRAV ENOUS ONE TIME ADMINISTRA TION (UNSCHEDUL ED) 236.0 ML/HR Start: February 01, 2025 12:00: 00 PM UTC End: February 09, 2025 4:01:4 7 PM UTC RACHEAL Borjas [id number] on February 09, 2025 4:02:00 PM UTC Discont inued [id number] sodium chloride 0.9% SOLN 100.0 ML INTRAV ENOUS ONE TIME ADMINISTRA TION (UNSCHEDUL ED) 236.0 ML/HR Start: February 01, 2025 12:00: 00 PM UTC End: February 01, 2025 2:01:4 3 PM UTC RACHEAL Borjas [id number] on February 09, 2025 4:02:00 PM UTC Discont inued [id number] pembrolizum ab (KEYTRUDA) 100 MG/4ML SOLN 200.0 MG INTRAV ENOUS ONE TIME ADMINISTRA TION (UNSCHEDUL ED) 236.0 ML/HR Start: February 15, 2025 12:00: 00 PM UTC End: February 17, 2025 12:54: 57 PM UTC RACHEAL GUZMAN Suad [id number] on February 17, 2025 12:55:00 PM UTC Discont inued [id number] 9710 167 sodium chloride 0.9% SOLN 100.0 ML INTRAV ENOUS ONE TIME ADMINISTRA TION (UNSCHEDUL ED) 236.0 ML/HR Start: February 15, 2025 12:00: 00 PM UTC End: February 17, 2025 12:54: 56 PM UTC RACHEAL Borjas [id number] on February 17, 2025 12:55:00 PM UTC Discont inued [id number] 602 pembrolizum ab (KEYTRUDA) 100 MG/4ML SOLN 200.0 MG INTRAV ENOUS ONE TIME ADMINISTRA TION (UNSCHEDUL ED) 236.0 ML/HR Start: February 22, 2025 12:00: 00 PM UTC End: February 22, 2025 1:17:4 7 PM UTC RACHEAL Borjas [id number] on February 22, 2025 1:17:00 PM UTC Discont inued [id number] 9710 167 sodium chloride 0.9% SOLN 100.0 ML INTRAV ENOUS ONE TIME ADMINISTRA TION (UNSCHEDUL ED) 236.0 ML/HR Start: February 22, 2025 12:00: 00 PM UTC End: February 22, 2025 1:17:4 7 PM UTC RACHEAL Borjas [id number] on February 22, 2025 1:17:00 PM [facility] SOCIAL HISTORY SOCIAL HISTORY SNOMED-CT Social History Element Description Effective Dates Offered Cessation Comment UpdatedBy [id number] Historical Tobacco smoking status Current Every Day Smoker smokes less than 1ppd currently. Has a history of 2-3 ppd daily [id number] on September 15, 2024 5:56:21 PM UT SOCIAL HISTORY - Gender Sex: Male SOCIAL HISTORY - Status : status i nformation is not available Intention in Next Year: intention information is not available SOCIAL HISTORY - Sexual Behavior Sexual Orientation Gender Identity SNOMED-CT Description SNO MED -CT Description Activity Level No of Partners Partner Type UpdatedBy Information is not available VITAL SIGNS PATIENT VITAL SIGNS This section displays the mo st recent value for each vital sign as of March 07, 2025 10:46:32 AM [place] Loinc Code Vital Sign Activity Date Result Updated By 8302-2 Body height February 22, 2025 12:30:03 PM UTC 175.26 cm (69.0 in) [id number] on February 22, 2025 12:30:03 PM UTC 66140-6 Body mass index (BMI ) [Ratio] February 22, 2025 12:30:03 PM UTC 25.231 kg/m2 [id number] on February 22, 2025 12:30:03 PM UTC 3140-1 Body Surface Area Derived From Formula February 22, 2025 12:30:03 PM UTC 1.9319 m2 [id number] on February 22, 2025 12:30:03 PM UTC 8310-5 Body temperature February 22, 2025 12:36:00 PM UTC 97.8 [degF] [id number] on February 22, 2025 12:36:46 PM UTC 51913-3 Body weight Measured February 22 12:30:03 PM UTC 77.5 kg (171.0 lb) [id number] on February 22, 2025 12:30:03 PM UTC 8462-4 Diastolic blood pressure February 22, 2025 1:56:00 PM UTC 55.0 mm[Hg] [id number] on February 22, 2025 3:59:08 PM UTC 8867-4 Heart rate February 22, 2025 1:56:00 PM UTC 70 /min [id number] on February 22, 2025 3:59:08 PM UTC 21376-1 Oxygen saturation in Arterial blood by Pulse oximetry February 22, 2025 12:36:00 PM UTC 94.0 % [id number] on February 22, 2025 12:36:46 PM UTC 9279-1 Respiratory rate February 22, 2025 12:36:00 PM UTC 20 /min [id number] on February 22, 2025 12:36:46 PM UTC 8480-6 Systolic blood pressure February 22, 2025 1:56:00 PM UTC 99.0 mm[Hg] [id number] on February 22, 2025 3:59:08 PM [facility] PEDIATRIC GROWTH CHART - VITAL SIGNS This section displays Head C ircumference Percentile, Weight for Length Percentile and BMI Percentile Loinc Code Pediatric Measure Age (Months) Result Updat ed By No Pediatric Growth Chart Pe rcentile Information Available. HEALTH CONCERNS Problems Concern Status Health Concern problem infor mation not available. Smoking Status Status Years Used Consumed packs p er day Health Concern smoking histo ry information not available. Family History Concern Status Health Concern family histor y information not available. ENCOUNTERS ENCOUNTER INFORMATION Reason for Visit Not Specified Admission February 01, 2025 12:13:00 PM [facility] [id number] [facility] [id number] Discharge February 28, 2025 3:35:00 PM [facility] DI SCHARGED TO HOME OR SELF CARE ENCOUNTER DIAGNOSES Notes information is not katarina ilable. Code System Diagnosis Onset Date Diagnosis information is not available. 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 [id number] on March 07, 2025 10:46:14 AM [facility] 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 JER METZGER Primary Care SIOBHAN HARRIS Admitting SIOBHAN HARRIS 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 Status Start Date End Date Update d By YASSINE Davidson PCP normal January 11, 2025 2:08:37 PM [facility] February 28, 2025 3:35:00 PM [facility] [id number] on January 11, 2025 2:08:37 PM [facility] KIMBERLY COPE Attending normal January 11, 2025 2:08:37 PM [facility] February 28, 2025 3:35:00 PM [facility] [id number] on January 11, 2025 2:08:37 PM [facility] KIMBERLY COPE Admitting normal January 11, 2025 2:08:37 PM [facility] February 28, 2025 3:35:00 PM [facility] [id number] on January 11, 2025 2:08:37 PM [facility]
--- OUTSIDE RECORDS SUMMARY | 2025-03-07 22:19 | XMS_ITS | Continuity of Care Document ---
Author Organization [facility] Phone Care Team Providers Care Information Analyst Name Role Phone SIOBHAN HARRIS Primary Attending [phone] SIOBHAN HARRIS Unavailable SIOBHAN HARRIS Admitting JER METZGER Primary Care ALLERGIES AND ADVERSE REACTIONS FAMILY HISTORY RESULTS MEDICATIONS SOCIAL HISTORY HEALTH CONCERNS ENCOUNTERS CARE TEAM
--- OUTSIDE RECORDS SUMMARY | 2025-04-04 07:46 | XMS_ITS | Data Portability ---
Author Organization [place] - [facility] & ROSIBEL Soriano ADMIN Address [address] [place] [id number] Care Team Providers Care Silica Filter Operator Name Role Phone JANNIEDESI TAYLOR Radiation Oncologist Assessment No assessment recorded. Plan of Treatment Reminders Order Date Submit Date Provider Last Modified By Organization Details Last Modified Time Details Appointments None recorded. Lab TSH, serum or plasma 2024 025 [email or web address] [facility], [address] [place], [address], 5 08:24:07 CBC w/ diff 2024 025 [email or web address] 6 [facility], [address] [place], [address], 5 08:24:07 CMP, serum or plasma 2024 025 JERICHO [facility], [address] [place], [address], 5 09:03:11 magnesium, serum or plasma 2024 025 [email or web address] 6 [facility], [address] [place], [address], 5 08:24:07 vitamin B12 + folate, serum or blood 2024 025 [email or web address] 6 [facility], [address] [place], [address], 5 08:24:07 magnesium, serum or plasma 2024 025 [email or web address] 6 [facility], [address] [place], [address], 5 09:36:26 CMP, serum or plasma 2024 025 [facility], [address] [place], [address], 5 09:33:09 CBC w/ diff 2024 025 [email or web address] 6 [facility], [address] [place], [address], 5 09:36:25 TSH, serum or plasma 2024 025 [email or web address] 6 [facility], [address] [place], [address], 5 09:36:26 vitamin B12 + folate, serum or blood 2024 025 [email or web address] 6 [facility], [address] [place], [address], 5 09:36:26 magnesium, serum or plasma 2024 025 [email or web address] 6 [facility], [address] [place], [address], 5 12:17:36 CMP, serum or plasma 2024 025 [facility], [address] [place], [address], 5 14:24:59 CBC w/ diff 2024 025 [email or web address] 6 [facility], [address] [place], [address], 5 12:17:36 TSH, serum or plasma 2024 025 [email or web address] 6 [facility], [address] [place], [address], 5 12:17:36 vitamin B12 + folate, serum or blood 2024 025 [email or web address] 6 [facility], [address], [place], [address], 5 12:17:36 Referral None recorded. Procedures None recorded. Surgeries None recorded. Imaging CT, neck, soft tissue, w/ contrast - repeat CT following holding keytruda. 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 2024 025 [email or web address] 7 [facility] (Centralized Scheduling), [address], [place], [address], 5 08:47:48 CT, neck, soft tissue, w/ contrast 2024 025 [email or web address] 6 [facility] ([facility]ized Scheduling), [address], [place], [address], 5 09:01:35 CT, chest + abdomen + pelvis, w/ contrast 2024 025 [email or web address] 6 [facility] (Centralized Scheduling), [address], [place], [address], 5 09:01:35 Medication Orders None recorded. Patient TargetsNo targets recorded. Patient InstructionsNo instructions recorded. Reason for Referral None Reported. Results Created Date Observation Date Name Description Value Unit Range Abnormal Flag Note LastModifiedBy Organization Detail LastModifiedTime 12/14/1912/14/2024 CBC AUTO W DIFF WBC 6.9 K/uL 4.0-10 .5 Not Available [facility] ([facility]) [address], [place], [address], 12/14/2024 08:38:05 12/14/19 25 12/14/2024 CBC AUTO W DIFF RBC 4.7 M/mm3 4.7-6. 1 Not Available [facility] ([facility]) [address], [place], [address], 12/14/2024 08:38:05 12/14/19 25 12/14/2024 CBC AUTO W DIFF HGB 14.1 gm/dL 13.5-1 8.0 Not Available [facility] ([facility]) [address], [place], [address], 12/14/2024 08:38:05 12/14/19 25 12/14/2024 CBC AUTO W DIFF HCT 43.6 % 42.0-5 2.0 Not Available [facility] ([facility]) [address], [place], [address], 12/14/2024 08:38:05 12/14/19 25 12/14/2024 CBC AUTO W DIFF MCV 92.6 fL 78-100 Not Available [facility] ([facility]) [address], [place], [address], 12/14/2024 08:38:05 12/14/19 25 12/14/2024 CBC AUTO W DIFF MCH 29.9 pg 27-31 Not Available [facility] ([facility]) [address], [place], [address], 12/14/2024 08:38:05 12/14/19 25 12/14/2024 CBC AUTO W DIFF MCHC 32.3 g/dL 32-36 Not Available [facility] ([facility]) [address], [place], [address], 12/14/2024 08:38:05 12/14/19 25 12/14/2024 CBC AUTO W DIFF RDW 14.3 % 11.5-1 4.0 high Not Available [facility] ([facility]) [address] , [place], [address], 12/14/2024 08:38:05 12/14/19 25 12/14/2024 CBC AUTO W DIFF platelet count 175 K/uL 150-45 0 Not Available [facility] ([facility]) [address] , [place], [address], 12/14/2024 08:38:05 12/14/19 25 12/14/2024 CBC AUTO W DIFF MPV 10.5 fL 6-9.5 high Not Available [facility] ([facility]) [address] , [place], [address], 12/14/2024 08:38:05 12/14/19 25 12/14/2024 CBC AUTO W DIFF neutrophil% 66.1 % 43-65 high Not Available [facility] ([facility]) [address], [place], [address], 12/14/2024 08:38:05 12/14/19 25 12/14/2024 CBC AUTO W DIFF lymphocyte% 23.9 % 20.5-4 5.5 Not Available [facility] ([facility]) [address] [place], [address], 12/14/2024 08:38:05 12/14/19 25 12/14/2024 CBC AUTO W DIFF monocyte% 6.5 % 5.5-11 .7 Not Available [facility] ([facility]) [address] [place], [address], 12/14/2024 08:38:05 12/14/19 25 12/14/2024 CBC AUTO W DIFF eosinophil% 2.9 % 0.9-2. 9 Not Available [facility] ([facility]) [address] [place], [address], 12/14/2024 08:38:05 12/14/19 25 12/14/2024 CBC AUTO W DIFF basophil% 0.3 % 0.2-1. 0 Not Available [facility] ([facility]) [address], [place], [address], 12/14/2024 08:38:05 12/14/19 25 12/14/2024 CBC AUTO W DIFF immature granulocytes % 0.3 % 0.0-0. 8 Not Available [facility] ([facility]) [address], [place], [address], 12/14/2024 08:38:05 12/14/19 25 12/14/2024 CBC AUTO W DIFF nucleated red blood cells % 0.0 % Not Available [facility] ([facility]) [address], [place], [address], 12/14/2024 08:38:05 12/14/19 25 12/14/2024 CBC AUTO W DIFF neutrophil# 4.6 K/uL 2.2-4. 8 Not Available [facility] ([facility]) [address], [place], [address], 12/14/2024 08:38:05 12/14/19 25 12/14/2024 CBC AUTO W DIFF lymphocyte# 1.7 cell/ mcL 1.3-2. 9 Not Available [facility] ([facility]) [address], [place], [address], 12/14/2024 08:38:05 12/14/19 25 12/14/2024 CBC AUTO W DIFF monocyte# 0.5 cell/ mcL 0.3-0. 8 Not Available [facility] ([facility]) [address] [place], [address], 12/14/2024 08:38:05 12/14/19 25 12/14/2024 CBC AUTO W DIFF eosinophil# 0.2 cell/ mcL 0-0.2 Not Available [facility] ([facility]) [address] [place], [address], 12/14/2024 08:38:05 12/14/19 25 12/14/2024 CBC AUTO W DIFF basophil# 0.0 cell/ mcL 0.0-1. 0 Not Available [facility] ([facility]) [address] , [place], [address], 12/14/2024 08:38:05 12/14/19 25 12/14/2024 CBC AUTO W DIFF immature gramulocytes # 0.02 K/uL Not Available [facility] ([facility]) [address] , [place], [address], 12/14/2024 08:38:05 12/14/19 25 12/14/2024 CBC AUTO W DIFF nucleated red blood cells # 0.00 K/uL Not Available [facility] ([facility]) [address] , [place], [address], 12/14/2024 08:38:05 12/14/19 25 12/14/2024 CBC AUTO W DIFF manual differential NO Not Available [facility] ([facility]) [address] , [place], [address], 12/14/2024 08:38:05 12/14/19 25 12/14/2024 COMP METAB OLIC PANEL sodium 140 mmol/ L 136-14 5 Not Available [facility] ([facility]) [address] , [place], [address], 12/14/2024 08:54:46 12/14/19 25 12/14/2024 COMP METAB OLIC PANEL potassium 3.9 mmol/ L 3.6-5. 0 Not Available [facility] ([facility]) [address], [place], [address], 12/14/2024 08:54:46 12/14/19 25 12/14/2024 COMP METAB OLIC PANEL chloride 102 mmol/ L 98-107 Not Available [facility] ([facility]) [address] , [place], [address], 12/14/2024 08:54:46 12/14/19 25 12/14/2024 COMP METAB OLIC PANEL carbon dioxide 30.7 mmol/ L 21.0-3 2.0 Not Available [facility] ([facility]) [address], [place], [address], 12/14/2024 08:54:46 12/14/19 25 12/14/2024 COMP METAB OLIC PANEL anion gap 11.2 Not Available [facility] ([facility]) [address], [place], [address], 12/14/2024 08:54:46 12/14/19 25 12/14/2024 COMP METAB OLIC PANEL glucose 124 mg/dL 70-120 high Not Available [facility] ([facility]) [address] [place], [address], 12/14/2024 08:54:46 12/14/19 25 12/14/2024 COMP METAB OLIC PANEL BUN 15 mg/dL 7-18 Not Available [facility] ([facility]) [address] [place], [address], 12/14/2024 08:54:46 12/14/19 25 12/14/2024 COMP METAB OLIC PANEL creatinine 1.0 mg/dL 0.6-1. 3 Not Available [facility] ([facility]) [address] [place], [address], 12/14/2024 08:54:46 12/14/19 25 12/14/2024 COMP METAB OLIC PANEL glomerular filtration rate 77 mlper min 60- GFR LIMIT ATION : The eGFR equat ion CKD-E PI 2020 is not appli cable for pedia tric patie nts or great er than 90 years of age. The follo wing condi tions may alter the GFR resul t: extre mes in body size, malnu triti on or obesi ty, skele valentine muscl e disea se, parap legia or quadr ipleg ia, veget lashae diet or rapid ly gilbert ing kiney funct ion. Not Available [facility] ([facility]) [address], [place], [address], 12/14/2024 08:54:46 12/14/19 25 12/14/2024 COMP METAB OLIC PANEL total protein 7.4 g/dL 6.4-8. 2 Not Available [facility] ([facility]) [address] [facility], [place], [address], 12/14/2024 08:54:46 12/14/19 25 12/14/2024 COMP METAB OLIC PANEL albumin 3.4 g/dL 3.4-5. 0 Not Available [facility] ([facility]) [address] [facility], [place], [address], 12/14/2024 08:54:46 12/14/19 25 12/14/2024 COMP METAB OLIC PANEL globulin 4.0 Not Available [facility] ([facility]) [address] [facility], [place], [address], 12/14/2024 08:54:46 12/14/19 25 12/14/2024 COMP METAB OLIC PANEL alb/glob ratio 0.9 0.7-2 Not Available [facility] ([facility]) [address] [facility], [place], [address], 12/14/2024 08:54:46 12/14/19 25 12/14/2024 COMP METAB OLIC PANEL calcium 9.0 mg/dL 8.5-10 .5 Not Available [facility] ([facility]) [address] [facility], [place], [address], 12/14/2024 08:54:46 12/14/19 25 12/14/2024 COMP METAB OLIC PANEL bilirubin total 1.00 mg/dL 0.10-1 .00 Not Available [facility] ([facility]) [address], [place], [address], 12/14/2024 08:54:46 12/14/19 25 12/14/2024 COMP METAB OLIC PANEL AST (SGOT) 209 U/L 0-37 high Not Available [facility] ([facility]) [address], [place], [address], 12/14/2024 08:54:46 12/14/19 25 12/14/2024 COMP METAB OLIC PANEL ALT (SGPT) 389 U/L 0-65 high Not Available [facility] ([facility]) [address], [place], [address], 12/14/2024 08:54:46 12/14/19 25 12/14/2024 COMP METAB OLIC PANEL alk phosphatase 351 U/L 46-116 high Not Available [facility] ([facility]) [address], [place], [address], 12/14/2024 08:54:46 12/14/19 25 12/14/2024 THYRO ID PANEL W/TSH T3 uptake 34.00 % 24.00- 39.00 Not Available [facility] ([facility]) [address], [place], [address], 12/14/2024 09:06:23 12/14/19 25 12/14/2024 THYRO ID PANEL W/TSH T4 total 7.6 mcg/d L 4.5-12 .1 Not Available [facility] ([facility]) [address] , [place], [address], 12/14/2024 09:06:23 12/14/19 25 12/14/2024 THYRO ID PANEL W/TSH free thyroxine index 2.58 1.60-3 .70 Not Available [facility] ([facility]) [address], [place], [address], 12/14/2024 09:06:23 12/14/19 25 12/14/2024 THYRO ID PANEL W/TSH thyroid stim hormone 1.81 mIU/L 0.36-3 .74 Not Available [facility] ([facility]) [address] [facility], [place], [address], 12/14/2024 09:06:23 12/14/19 25 12/15/2024 ACUTE HEPAT ITIS PANEL hep A Ab, IgM Negati ve negati ve A negat tony anti- HAV IgM resul t sugge sts no recen t or curre nt HAV infec tion. Not Available [facility] ([facility]) [address] [facility], [place], [address], 12/15/2024 07:11:37 12/14/19 25 12/15/2024 ACUTE HEPAT ITIS PANEL HBsAg screen Negati ve negati ve Not Available [facility] ([facility]) [address] [facility], [place], [address], 12/15/2024 07:11:37 12/14/19 25 12/15/2024 ACUTE HEPAT ITIS PANEL hep B core Ab, IgM Negati ve negati ve Not Available [facility] ([facility]) [address] [facility], [place], [address], 12/15/2024 07:11:37 12/14/19 25 12/15/2024 ACUTE HEPAT ITIS PANEL HCV Ab Non Reacti ve non reacti ve Perfo rmed at: - [facility] [address] [place] [id number] Lab Direc tor: Seth chu PhD, Phone : [phone] Not Available [facility] ([facility]) [address] [facility], [place], [address], 12/15/2024 07:11:37 12/14/19 25 12/15/2024 ACUTE HEPAT ITIS PANEL hep A Ab, IgM Negati ve negati ve A negat tony anti- HAV IgM resul t sugge sts no recen t or curre nt HAV infec tion. Not Available [facility] ([facility]) [address] [facility], [place], [address], 12/15/2024 07:11:39 12/14/19 25 12/15/2024 ACUTE HEPAT ITIS PANEL HBsAg screen Negati ve negati ve Not Available [facility] ([facility]) [address] [facility], [place], [address], 12/15/2024 07:11:39 12/14/19 25 12/15/2024 ACUTE HEPAT ITIS PANEL hep B core Ab, IgM Negati ve negati ve Not Available [facility] ([facility]) [address] [facility], [place], [address], 12/15/2024 07:11:39 12/14/19 25 12/15/2024 ACUTE HEPAT ITIS PANEL HCV Ab Non Reacti ve non reacti ve [facility]: [facility] [address] [place] [address] Lab Direc tor: Seth chu PhD, Phone : [phone] Not Available [facility] ([facility]) [address] [place], [address], 12/15/2024 07:11:39 12/14/19 25 12/15/2024 ACUTE HEPAT ITIS PANEL interpretati on: Commen t . Not infec carlos with HCV unles s early or acute infec tion is suspe cted (whic h may be delay ed in an immun ocomp romis ed indiv idual ), or other evide nce exist s to indic ate HCV infec tion. Perfo rmed at: [facility] [address] [place] [address] Lab Direc tor: Seth chu PhD, Phone : [phone] Not Available [facility] ([facility]) [address] [place], [address], 12/15/2024 07:11:39 12/14/19 25 12/15/2024 CORTI GENEVIEVE cortisol 8.2 ug/dL 6.2-19 .4 Pleas e Note: The refer ence inter wen and allan ing for this test is for an AM colle ction . If this is a PM colle ction pleas e use: Corti genevieve PM: 2.3-1 1.9 Perfo rmed at: - [facility] [address] [place] [address] 126 Lab Direc tor: Seth chu PhD, Phone : [phone] Not Available [facility] ([facility]) [address] [facility], [place], [address], 12/15/2024 08:13:45 12/21/19 25 12/21/2024 CBC AUTO W DIFF WBC 7.9 K/uL 4.0-10 .5 Not Available [facility] ([facility]) [address] [facility], [place], [address], 12/21/2024 08:46:39 12/21/19 25 12/21/2024 CBC AUTO W DIFF RBC 4.7 M/mm3 4.7-6. 1 Not Available [facility] ([facility]) [address] [facility], [place], [address], 12/21/2024 08:46:39 12/21/19 25 12/21/2024 CBC AUTO W DIFF HGB 14.0 gm/dL 13.5-1 8.0 Not Available [facility] ([facility]) [address] [facility], [place], [address], 12/21/2024 08:46:39 12/21/19 25 12/21/2024 CBC AUTO W DIFF HCT 43.9 % 42.0-5 2.0 Not Available [facility] ([facility]) [address] [place], [address], 12/21/2024 08:46:39 12/21/19 25 12/21/2024 CBC AUTO W DIFF MCV 93.8 fL 78-100 Not Available [facility] ([facility]) [address] [place], [address], 12/21/2024 08:46:39 12/21/19 25 12/21/2024 CBC AUTO W DIFF MCH 29.9 pg 27-31 Not Available [facility] ([facility]) [address] [place], [address], 12/21/2024 08:46:39 12/21/19 25 12/21/2024 CBC AUTO W DIFF MCHC 31.9 g/dL 32-36 low Not Available [facility] ([facility]) [address] [place], [address], 12/21/2024 08:46:39 12/21/19 25 12/21/2024 CBC AUTO W DIFF RDW 14.5 % 11.5-1 4.0 high Not Available [facility] ([facility]) [address] [place], [address], 12/21/2024 08:46:39 12/21/19 25 12/21/2024 CBC AUTO W DIFF platelet count 204 K/uL 150-45 0 Not Available [facility] ([facility]) [address] [place], [address], 12/21/2024 08:46:39 12/21/19 25 12/21/2024 CBC AUTO W DIFF MPV 10.7 fL 6-9.5 high Not Available [facility] ([facility]) [address] [place], [address], 12/21/2024 08:46:39 12/21/19 25 12/21/2024 CBC AUTO W DIFF neutrophil% 61.3 % 43-65 Not Available [facility] ([facility]) [address] [place], [address], 12/21/2024 08:46:39 12/21/19 25 12/21/2024 CBC AUTO W DIFF lymphocyte% 27.4 % 20.5-4 5.5 Not Available [facility] ([facility]) [address] [place], [address], 12/21/2024 08:46:39 12/21/19 25 12/21/2024 CBC AUTO W DIFF monocyte% 7.6 % 5.5-11 .7 Not Available [facility] ([facility]) [address] [place], [address], 12/21/2024 08:46:39 12/21/19 25 12/21/2024 CBC AUTO W DIFF eosinophil% 2.8 % 0.9-2. 9 Not Available [facility] ([facility]) [address] [place], [address], 12/21/2024 08:46:39 12/21/19 25 12/21/2024 CBC AUTO W DIFF basophil% 0.6 % 0.2-1. 0 Not Available [facility] ([facility]) [address] [place], [address], 12/21/2024 08:46:39 12/21/19 25 12/21/2024 CBC AUTO W DIFF immature granulocytes % 0.3 % 0.0-0. 8 Not Available [facility] ([facility]) [address] [place], [address], 12/21/2024 08:46:39 12/21/19 25 12/21/2024 CBC AUTO W DIFF nucleated red blood cells % 0.0 % Not Available [facility] ([facility]) [address] [place], [address], 12/21/2024 08:46:39 12/21/19 25 12/21/2024 CBC AUTO W DIFF neutrophil# 4.8 K/uL 2.2-4. 8 Not Available [facility] ([facility]) [address], [place], [address], 12/21/2024 08:46:39 12/21/19 25 12/21/2024 CBC AUTO W DIFF lymphocyte# 2.2 cell/ mcL 1.3-2. 9 Not Available [facility] ([facility]) [address] [facility], [place], [address], 12/21/2024 08:46:39 12/21/19 25 12/21/2024 CBC AUTO W DIFF monocyte# 0.6 cell/ mcL 0.3-0. 8 Not Available [facility] ([facility]) [address] [facility], [place], [address], 12/21/2024 08:46:39 12/21/19 25 12/21/2024 CBC AUTO W DIFF eosinophil# 0.2 cell/ mcL 0-0.2 Not Available [facility] ([facility]) [address] [facility], [place], [address], 12/21/2024 08:46:39 12/21/19 25 12/21/2024 CBC AUTO W DIFF basophil# 0.1 cell/ mcL 0.0-1. 0 Not Available [facility] ([facility]) [address] [facility], [place], [address], 12/21/2024 08:46:39 12/21/19 25 12/21/2024 CBC AUTO W DIFF immature gramulocytes # 0.02 K/uL Not Available [facility] ([facility]) [address] [facility], [place], [address], 12/21/2024 08:46:39 12/21/19 25 12/21/2024 CBC AUTO W DIFF nucleated red blood cells # 0.00 K/uL Not Available [facility] ([facility]) [address] [facility], [place], [address], 12/21/2024 08:46:39 12/21/19 25 12/21/2024 CBC AUTO W DIFF manual differential NO Not Available [facility] ([facility]) [address] [place], [address], 12/21/2024 08:46:39 12/21/19 25 12/21/2024 COMP METAB OLIC PANEL sodium 138 mmol/ L 136-14 5 Not Available [facility] ([facility]) [address] [place], [address], 12/21/2024 09:15:18 12/21/19 25 12/21/2024 COMP METAB OLIC PANEL potassium 4.7 mmol/ L 3.6-5. 0 Not Available [facility] ([facility]) [address] [place], [address], 12/21/2024 09:15:18 12/21/19 25 12/21/2024 COMP METAB OLIC PANEL chloride 103 mmol/ L 98-107 Not Available [facility] ([facility]) [address] [place], [address], 12/21/2024 09:15:18 12/21/19 25 12/21/2024 COMP METAB OLIC PANEL carbon dioxide 31.4 mmol/ L 21.0-3 2.0 Not Available [facility] ([facility]) [address] [place], [address], 12/21/2024 09:15:18 12/21/19 25 12/21/2024 COMP METAB OLIC PANEL anion gap 8.3 Not Available [facility] ([facility]) [address] [place], [address], 12/21/2024 09:15:18 12/21/19 25 12/21/2024 COMP METAB OLIC PANEL glucose 54 mg/dL 70-120 low Not Available [facility] ([facility]) [address], [place], [address], 12/21/2024 09:15:18 12/21/19 25 12/21/2024 COMP METAB OLIC PANEL BUN 10 mg/dL 7-18 Not Available [facility] ([facility]) [address], [place], [address], 12/21/2024 09:15:18 12/21/19 25 12/21/2024 COMP METAB OLIC PANEL creatinine 1.0 mg/dL 0.6-1. 3 Not Available [facility] ([facility]) [address], [place], [address], 12/21/2024 09:15:18 12/21/19 25 12/21/2024 COMP METAB OLIC PANEL glomerular filtration rate 77 mlper min 60- GFR LIMIT ATION : The eGFR equat ion CKD-E PI 2020 is not appli cable for pedia tric patie nts or great er than 90 years of age. The follo wing condi tions may alter the GFR resul t: extre mes in body size, malnu triti on or obesi ty, skele valentine muscl e disea se, parap legia or quadr ipleg ia, veget lashae diet or rapid ly gilbert ing kiney funct ion. Not Available [facility] ([facility]) [address], [place], [address], 12/21/2024 09:15:18 12/21/19 25 12/21/2024 COMP METAB OLIC PANEL total protein 7.3 g/dL 6.4-8. 2 Not Available [facility] ([facility]) [address], [place], [address], 12/21/2024 09:15:18 12/21/19 25 12/21/2024 COMP METAB OLIC PANEL albumin 3.3 g/dL 3.4-5. 0 low Not Available [facility] ([facility]) [address], [place], [address], 12/21/2024 09:15:18 12/21/19 25 12/21/2024 COMP METAB OLIC PANEL globulin 4.0 Not Available [facility] ([facility]) [address], [place], [address], 12/21/2024 09:15:18 12/21/19 25 12/21/2024 COMP METAB OLIC PANEL alb/glob ratio 0.8 0.7-2 Not Available [facility] ([facility]) [address], [place], [address], 12/21/2024 09:15:18 12/21/19 25 12/21/2024 COMP METAB OLIC PANEL calcium 9.0 mg/dL 8.5-10 .5 Not Available [facility] ([facility]) [address] [facility], [place], [address], 12/21/2024 09:15:18 12/21/19 25 12/21/2024 COMP METAB OLIC PANEL bilirubin total 0.30 mg/dL 0.10-1 .00 Not Available [facility] ([facility]) [address], [place], [address], 12/21/2024 09:15:18 12/21/19 25 12/21/2024 COMP METAB OLIC PANEL AST (SGOT) 15 U/L 0-37 Not Available [facility] ([facility]) [address], [place], [address], 12/21/2024 09:15:18 12/21/19 25 12/21/2024 COMP METAB OLIC PANEL ALT (SGPT) 59 U/L 0-65 Not Available [facility] ([facility]) [address], [place], [address], 12/21/2024 09:15:18 12/21/19 25 12/21/2024 COMP METAB OLIC PANEL alk phosphatase 184 U/L 46-116 high Not Available [facility] ([facility]) [address], [place], [address], 12/21/2024 09:15:18 12/21/19 25 12/21/2024 MAGNE SIUM magnesium 2.2 mg/dL 1.8-2. 4 Not Available [facility] ([facility]) [address] [facility], [place], [address], 12/21/2024 09:15:19 12/21/19 25 12/21/2024 THYRO ID PANEL W/TSH T3 uptake 33.00 % 24.00- 39.00 Not Available [facility] ([facility]) [address] [facility], [place], [address], 12/21/2024 09:32:17 12/21/19 25 12/21/2024 THYRO ID PANEL W/TSH T4 total 7.0 mcg/d L 4.5-12 .1 Not Available [facility] ([facility]) [address] [facility], [place], [address], 12/21/2024 09:32:17 12/21/19 25 12/21/2024 THYRO ID PANEL W/TSH free thyroxine index 2.31 1.60-3 .70 Not Available [facility] ([facility]) [address] [place], [address], 12/21/2024 09:32:17 12/21/19 25 12/21/2024 THYRO ID PANEL W/TSH thyroid stim hormone 1.65 mIU/L 0.36-3 .74 Not Available [facility] ([facility]) [address] [place], [address], 12/21/2024 09:32:17 12/21/19 25 12/22/2024 CORTI GENEVIEVE cortisol 9.4 ug/dL 6.2-19 .4 Plepat e Note: The refer ence inter wen and allan ing for this test is for an AM colle ction . If this is a PM colle ction pleas e use: Corti genevieve PM: 2.3-1 1.9 Perfo rmed at: - [facility] [place] [address] Lab Direc tor: Seth chu PhD, Phone : [phone] Not Available [facility] ([facility]) [address] , [place], [address], 12/22/2024 08:13:15 01/12/20 25 01/11/2025 CBC AUTO W DIFF WBC 8.0 K/uL 4.0-10 .5 Not Available [facility] ([facility]) [address] , [place], [address], 01/11/2025 09:16:39 01/12/20 25 01/11/2025 CBC AUTO W DIFF RBC 4.8 M/mm3 4.7-6. 1 Not Available [facility] ([facility]) [address] , [place], [address], 01/11/2025 09:16:39 01/12/20 25 01/11/2025 CBC AUTO W DIFF HGB 14.3 gm/dL 13.5-1 8.0 Not Available [facility] ([facility]) [address] , [place], [address], 01/11/2025 09:16:39 01/12/20 25 01/11/2025 CBC AUTO W DIFF HCT 43.7 % 42.0-5 2.0 Not Available [facility] ([facility]) [address] , [place], [address], 01/11/2025 09:16:39 01/12/20 25 01/11/2025 CBC AUTO W DIFF MCV 91.6 fL 78-100 Not Available [facility] ([facility]) [address] , [place], [address], 01/11/2025 09:16:39 01/12/20 25 01/11/2025 CBC AUTO W DIFF MCH 30.0 pg 27-31 Not Available [facility] ([facility]) [address] , [place], [address], 01/11/2025 09:16:39 01/12/20 25 01/11/2025 CBC AUTO W DIFF MCHC 32.7 g/dL 32-36 Not Available [facility] ([facility]) [address] , [place], [address], 01/11/2025 09:16:39 01/12/20 25 01/11/2025 CBC AUTO W DIFF RDW 14.0 % 11.5-1 4.0 Not Available [facility] ([facility]) [address], [place], [address], 01/11/2025 09:16:39 01/12/20 25 01/11/2025 CBC AUTO W DIFF platelet count 183 K/uL 150-45 0 Not Available [facility] ([facility]) [address], [place], [address], 01/11/2025 09:16:39 01/12/20 25 01/11/2025 CBC AUTO W DIFF MPV 10.2 fL 6-9.5 high Not Available [facility] ([facility]) [address] [place], [address], 01/11/2025 09:16:39 01/12/20 25 01/11/2025 CBC AUTO W DIFF neutrophil% 69.2 % 43-65 high Not Available [facility] ([facility]) [address] [place], [address], 01/11/2025 09:16:39 01/12/20 25 01/11/2025 CBC AUTO W DIFF lymphocyte% 23.3 % 20.5-4 5.5 Not Available [facility] ([facility]) [address] [place], [address], 01/11/2025 09:16:39 01/12/20 25 01/11/2025 CBC AUTO W DIFF monocyte% 5.0 % 5.5-11 .7 low Not Available [facility] ([facility]) [address], [place], [address], 01/11/2025 09:16:39 01/12/20 25 01/11/2025 CBC AUTO W DIFF eosinophil% 1.8 % 0.9-2. 9 Not Available [facility] ([facility]) [address] [facility], [place], [address], 01/11/2025 09:16:39 01/12/20 25 01/11/2025 CBC AUTO W DIFF basophil% 0.3 % 0.2-1. 0 Not Available [facility] ([facility]) [address] [facility], [place], [address], 01/11/2025 09:16:39 01/12/20 25 01/11/2025 CBC AUTO W DIFF immature granulocytes % 0.4 % 0.0-0. 8 Not Available [facility] ([facility]) [address] [facility], [place], [address], 01/11/2025 09:16:39 01/12/20 25 01/11/2025 CBC AUTO W DIFF nucleated red blood cells % 0.0 % Not Available [facility] ([facility]) [address] [place], [address], 01/11/2025 09:16:39 01/12/20 25 01/11/2025 CBC AUTO W DIFF neutrophil# 5.5 K/uL 2.2-4. 8 high Not Available [facility] ([facility]) [address] [place], [address], 01/11/2025 09:16:39 01/12/20 25 01/11/2025 CBC AUTO W DIFF lymphocyte# 1.9 cell/ mcL 1.3-2. 9 Not Available [facility] ([facility]) [address] , [place], [address], 01/11/2025 09:16:39 01/12/20 25 01/11/2025 CBC AUTO W DIFF monocyte# 0.4 cell/ mcL 0.3-0. 8 Not Available [facility] ([facility]) [address], [place], [address], 01/11/2025 09:16:39 01/12/20 25 01/11/2025 CBC AUTO W DIFF eosinophil# 0.1 cell/ mcL 0-0.2 Not Available [facility] ([facility]) [address], [place], [address], 01/11/2025 09:16:39 01/12/20 25 01/11/2025 CBC AUTO W DIFF basophil# 0.0 cell/ mcL 0.0-1. 0 Not Available [facility] ([facility]) [address], [place], [address], 01/11/2025 09:16:39 01/12/20 25 01/11/2025 CBC AUTO W DIFF immature gramulocytes # 0.03 K/uL Not Available [facility] ([facility]) [address] [facility], [place], [address], 01/11/2025 09:16:39 01/12/20 25 01/11/2025 CBC AUTO W DIFF nucleated red blood cells # 0.00 K/uL Not Available [facility] ([facility]) [address] [place], [address], 01/11/2025 09:16:39 01/12/20 25 01/11/2025 CBC AUTO W DIFF manual differential NO Not Available [facility] ([facility]) [address] [place], [address], 01/11/2025 09:16:39 01/12/20 25 01/11/2025 COMP METAB OLIC PANEL sodium 143 mmol/ L 136-14 5 Not Available [facility] ([facility]) [address] , [place], [address], 01/11/2025 09:41:28 01/12/20 25 01/11/2025 COMP METAB OLIC PANEL potassium 4.1 mmol/ L 3.6-5. 0 Not Available [facility] ([facility]) [address], [place], [address], 01/11/2025 09:41:28 01/12/20 25 01/11/2025 COMP METAB OLIC PANEL chloride 102 mmol/ L 98-107 Not Available [facility] ([facility]) [address] , [place], [address], 01/11/2025 09:41:28 01/12/20 25 01/11/2025 COMP METAB OLIC PANEL carbon dioxide 29.2 mmol/ L 21.0-3 2.0 Not Available [facility] ([facility]) [address] , [place], [address], 01/11/2025 09:41:28 01/12/20 25 01/11/2025 COMP METAB OLIC PANEL anion gap 15.9 Not Available [facility] ([facility]) [address] , [place], [address], 01/11/2025 09:41:28 01/12/20 25 01/11/2025 COMP METAB OLIC PANEL glucose 77 mg/dL 70-120 Not Available [facility] ([facility]) [address] , [place], [address], 01/11/2025 09:41:28 01/12/20 25 01/11/2025 COMP METAB OLIC PANEL BUN 18 mg/dL 7-18 Not Available [facility] ([facility]) [address], [place], [address], 01/11/2025 09:41:28 01/12/20 25 01/11/2025 COMP METAB OLIC PANEL creatinine 1.0 mg/dL 0.6-1. 3 Not Available [facility] ([facility]) [address], [place], [address], 01/11/2025 09:41:28 01/12/20 25 01/11/2025 COMP METAB OLIC PANEL glomerular filtration rate 77 mlper min 60- GFR LIMIT ATION : The eGFR equat ion CKD-E PI 2020 is not appli cable for pedia tric patie nts or great er than 90 years of age. The follo wing condi tions may alter the GFR resul t: extre mes in body size, malnu triti on or obesi ty, skele valentine muscl e disea se, parap legia or quadr ipleg ia, veget lashae diet or rapid ly gilbert ing kiney funct ion. Not Available [facility] ([facility]) [address], [place], [address], 01/11/2025 09:41:28 01/12/20 25 01/11/2025 COMP METAB OLIC PANEL osmolality (calculated) 298 mOsm/ kg 275-30 1 OSMOL ALITY IS A CALCU LATIO N UTILI ZING THE SERUM /PLAS MA SODIU M, GLUCO SE AND UREA NITRO GEN (BUN) LEVEL S. FOR THE MOST ACCUR ATE RESUL T A MEASU RED SERUM OSMOL ALITY IS SUGGE STED. Not Available [facility] ([facility]) [address], [place], [address], 01/11/2025 09:41:28 01/12/20 25 01/11/2025 COMP METAB OLIC PANEL total protein 7.3 g/dL 6.4-8. 2 Not Available [facility] ([facility]) [address] , [place], [address], 01/11/2025 09:41:28 01/12/20 25 01/11/2025 COMP METAB OLIC PANEL albumin 3.3 g/dL 3.4-5. 0 low Not Available [facility] ([facility]) [address] , [place], [address], 01/11/2025 09:41:28 01/12/20 25 01/11/2025 COMP METAB OLIC PANEL globulin 4.0 Not Available [facility] ([facility]) [address], [place], [address], 01/11/2025 09:41:28 01/12/20 25 01/11/2025 COMP METAB OLIC PANEL alb/glob ratio 0.8 0.7-2 Not Available [facility] ([facility]) [address], [place], [address], 01/11/2025 09:41:28 01/12/20 25 01/11/2025 COMP METAB OLIC PANEL calcium 9.3 mg/dL 8.5-10 .5 Not Available [facility] ([facility]) [address], [place], [address], 01/11/2025 09:41:28 01/12/20 25 01/11/2025 COMP METAB OLIC PANEL bilirubin total 0.30 mg/dL 0.10-1 .00 Not Available [facility] ([facility]) [address], [place], [address], 01/11/2025 09:41:28 01/12/20 25 01/11/2025 COMP METAB OLIC PANEL AST (SGOT) 13 U/L 0-37 Not Available [facility] ([facility]) [address], [place], [address], 01/11/2025 09:41:28 01/12/20 25 01/11/2025 COMP METAB OLIC PANEL ALT (SGPT) 13 U/L 0-65 Not Available [facility] ([facility]) [address], [place], [address], 01/11/2025 09:41:28 01/12/20 25 01/11/2025 COMP METAB OLIC PANEL alk phosphatase 137 U/L 46-116 high Not Available [facility] ([facility]) [address], [place], [address], 01/11/2025 09:41:28 01/12/20 25 01/11/2025 THYRO ID PANEL W/TSH T3 uptake 32.00 % 24.00- 39.00 Not Available [facility] ([facility]) [address], [place], [address], 01/11/2025 10:30:29 01/12/20 25 01/11/2025 THYRO ID PANEL W/TSH T4 total 7.9 mcg/d L 4.5-12 .1 Not Available [facility] ([facility]) [address], [place], [address], 01/11/2025 10:30:29 01/12/20 25 01/11/2025 THYRO ID PANEL W/TSH free thyroxine index 2.53 1.60-3 .70 Not Available [facility] ([facility]) [address], [place], [address], 01/11/2025 10:30:29 01/12/20 25 01/11/2025 THYRO ID PANEL W/TSH thyroid stim hormone 1.93 mIU/L 0.36-3 .74 Not Available [facility] ([facility]) [address] [place], [address], 01/11/2025 10:30:29 01/12/20 25 01/11/2025 VITAM IN B12 vitamin B12 716 pg/mL 193-98 6 *Note : Refer ence Steve hood New Test Metho d in use. Not Available [facility] ([facility]) [address], [place], [address], 01/11/2025 12:27:31 01/12/20 25 01/11/2025 VITAM IN B12 folate (folic acid), serum 14.3 NG/mL 8.6-58 .9 *Note : Refer miguelangel Inter wen hood New Test Metho d in use. Not Available [facility] ([facility]) [address], [place], [address], 01/11/2025 12:27:31 01/12/20 25 01/12/2025 CORTI GENEVIEVE cortisol 8.6 ug/dL 6.2-19 .4 Pleas e Note: The refer ence inter wen and allan ing for this test is for an AM colle ction . If this is a PM colle ction pleas e use: Corti genevieve PM: 2.3-1 1.9 Perfo rmed at: [place] [address] Lab Direc tor: Seth chu PhD, Phone : [phone] Not Available [facility] ([facility]) [address], [place], [address], 01/12/2025 08:15:51 02/02/20 25 02/01/2025 CBC AUTO W DIFF WBC 6.4 K/uL 4.0-10 .5 Not Available [facility] ([facility]) [address], [place], [address], 02/01/2025 09:15:02 02/02/20 25 02/01/2025 CBC AUTO W DIFF RBC 4.6 M/mm3 4.7-6. 1 low Not Available [facility] ([facility]) [address], [place], [address], 02/01/2025 09:15:02 02/02/20 25 02/01/2025 CBC AUTO W DIFF HGB 13.6 gm/dL 13.5-1 8.0 Not Available [facility] ([facility]) [address], [place], [address], 02/01/2025 09:15:02 02/02/20 25 02/01/2025 CBC AUTO W DIFF HCT 41.4 % 42.0-5 2.0 low Not Available [facility] ([facility]) [address], [place], [address], 02/01/2025 09:15:02 02/02/20 25 02/01/2025 CBC AUTO W DIFF MCV 91.0 fL 78-100 Not Available [facility] ([facility]) [address], [place], [address], 02/01/2025 09:15:02 02/02/20 25 02/01/2025 CBC AUTO W DIFF MCH 29.9 pg 27-31 Not Available [facility] ([facility]) [address], [place], [address], 02/01/2025 09:15:02 02/02/20 25 02/01/2025 CBC AUTO W DIFF MCHC 32.9 g/dL 32-36 Not Available [facility] ([facility]) [address], [place], [address], 02/01/2025 09:15:02 02/02/20 25 02/01/2025 CBC AUTO W DIFF RDW 13.7 % 11.5-1 4.0 Not Available [facility] ([facility]) [address], [place], [address], 02/01/2025 09:15:02 02/02/20 25 02/01/2025 CBC AUTO W DIFF platelet count 179 K/uL 150-45 0 Not Available [facility] ([facility]) [address], [place], [address], 02/01/2025 09:15:02 02/02/20 25 02/01/2025 CBC AUTO W DIFF MPV 10.3 fL 6-9.5 high Not Available [facility] ([facility]) [address], [place], [address], 02/01/2025 09:15:02 02/02/20 25 02/01/2025 CBC AUTO W DIFF neutrophil% 63.2 % 43-65 Not Available [facility] ([facility]) [address], [place], [address], 02/01/2025 09:15:02 02/02/20 25 02/01/2025 CBC AUTO W DIFF lymphocyte% 26.4 % 20.5-4 5.5 Not Available [facility] ([facility]) [address], [place], [address], 02/01/2025 09:15:02 02/02/20 25 02/01/2025 CBC AUTO W DIFF monocyte% 6.2 % 5.5-11 .7 Not Available [facility] ([facility]) [address] [place], [address], 02/01/2025 09:15:02 02/02/20 25 02/01/2025 CBC AUTO W DIFF eosinophil% 3.4 % 0.9-2. 9 high Not Available [facility] ([facility]) [address] [place], [address], 02/01/2025 09:15:02 02/02/20 25 02/01/2025 CBC AUTO W DIFF basophil% 0.3 % 0.2-1. 0 Not Available [facility] ([facility]) [address] [place], [address], 02/01/2025 09:15:02 02/02/20 25 02/01/2025 CBC AUTO W DIFF immature granulocytes % 0.5 % 0.0-0. 8 Not Available [facility] ([facility]) [address] [place], [address], 02/01/2025 09:15:02 02/02/20 25 02/01/2025 CBC AUTO W DIFF nucleated red blood cells % 0.0 % Not Available [facility] ([facility]) [address], [place], [address], 02/01/2025 09:15:02 02/02/20 25 02/01/2025 CBC AUTO W DIFF neutrophil# 4.1 K/uL 2.2-4. 8 Not Available [facility] ([facility]) [address], [place], [address], 02/01/2025 09:15:02 02/02/20 25 02/01/2025 CBC AUTO W DIFF lymphocyte# 1.7 cell/ mcL 1.3-2. 9 Not Available [facility] ([facility]) [address], [place], [address], 02/01/2025 09:15:02 02/02/20 25 02/01/2025 CBC AUTO W DIFF monocyte# 0.4 cell/ mcL 0.3-0. 8 Not Available [facility] ([facility]) [address], [place], [address], 02/01/2025 09:15:02 02/02/20 25 02/01/2025 CBC AUTO W DIFF eosinophil# 0.2 cell/ mcL 0-0.2 Not Available [facility] ([facility]) [address], [place], [address], 02/01/2025 09:15:02 02/02/20 25 02/01/2025 CBC AUTO W DIFF basophil# 0.0 cell/ mcL 0.0-1. 0 Not Available [facility] ([facility]) [address], [place], [address], 02/01/2025 09:15:02 02/02/20 25 02/01/2025 CBC AUTO W DIFF immature gramulocytes # 0.03 K/uL Not Available [facility] ([facility]) [address], [place], [address], 02/01/2025 09:15:02 02/02/20 25 02/01/2025 CBC AUTO W DIFF nucleated red blood cells # 0.00 K/uL Not Available [facility] ([facility]) [address], [place], [address], 02/01/2025 09:15:02 02/02/20 25 02/01/2025 CBC AUTO W DIFF manual differential NO Not Available [facility] ([facility]) [address], [place], [address], 02/01/2025 09:15:02 02/02/20 25 02/01/2025 COMP METAB OLIC PANEL sodium 138 mmol/ L 136-14 5 Not Available [facility] ([facility]) [address], [place], [address], 02/01/2025 09:33:09 02/02/20 25 02/01/2025 COMP METAB OLIC PANEL potassium 4.1 mmol/ L 3.6-5. 0 Not Available [facility] ([facility]) [address], [place], [address], 02/01/2025 09:33:09 02/02/20 25 02/01/2025 COMP METAB OLIC PANEL chloride 101 mmol/ L 98-107 Not Available [facility] ([facility]) [address], [place], [address], 02/01/2025 09:33:09 02/02/20 25 02/01/2025 COMP METAB OLIC PANEL carbon dioxide 31.1 mmol/ L 21.0-3 2.0 Not Available [facility] ([facility]) [address], [place], [address], 02/01/2025 09:33:09 02/02/20 25 02/01/2025 COMP METAB OLIC PANEL anion gap 10.0 Not Available [facility] ([facility]) [address], [place], [address], 02/01/2025 09:33:09 02/02/20 25 02/01/2025 COMP METAB OLIC PANEL glucose 65 mg/dL 70-120 low Not Available [facility] ([facility]) [address] , [place], [address], 02/01/2025 09:33:09 02/02/20 25 02/01/2025 COMP METAB OLIC PANEL BUN 12 mg/dL 7-18 Not Available [facility] ([facility]) [address] , [place], [address], 02/01/2025 09:33:09 02/02/20 25 02/01/2025 COMP METAB OLIC PANEL creatinine 1.2 mg/dL 0.6-1. 3 Not Available [facility] ([facility]) [address] , [place], [address], 02/01/2025 09:33:09 02/02/20 25 02/01/2025 COMP METAB OLIC PANEL glomerular filtration rate 62 mlper min 60- GFR LIMIT ATION : The eGFR equat ion CKD-E PI 2020 is not appli cable for pedia tric patie nts or great er than 90 years of age. The follo wing condi tions may alter the GFR resul t: extre mes in body size, malnu triti on or obesi ty, skele valentine muscl e disea se, parap legia or quadr ipleg ia, veget lashae diet or rapid ly gilbert ing kiney funct ion. Not Available [facility] ([facility]) [address] , [place], [address], 02/01/2025 09:33:09 02/02/20 25 02/01/2025 COMP METAB OLIC PANEL osmolality (calculated) 285 mOsm/ kg 275-30 1 OSMOL ALITY IS A CALCU LATIO N UTILI ZING THE SERUM /PLAS MA SODIU M, GLUCO SE AND UREA NITRO GEN (BUN) LEVEL S. FOR THE MOST ACCUR ATE RESUL T A MEASU RED SERUM OSMOL ALITY IS TUTU UNDERWOODD. Not Available [facility] ([facility] [facility]) [address] [facility], [place], [address], 02/01/2025 09:33:09 02/02/20 25 02/01/2025 COMP METAB OLIC PANEL total protein 7.2 g/dL 6.4-8. 2 Not Available [facility] ([facility]) [address] [facility], [place], [address], 02/01/2025 09:33:09 02/02/20 25 02/01/2025 COMP METAB OLIC PANEL albumin 3.7 g/dL 3.4-5. 0 Not Available [facility] ([facility]) [address] [facility], [place], [address], 02/01/2025 09:33:09 02/02/20 25 02/01/2025 COMP METAB OLIC PANEL globulin 3.5 Not Available [facility] ([facility]) [address] [facility], [place], [address], 02/01/2025 09:33:09 02/02/20 25 02/01/2025 COMP METAB OLIC PANEL alb/glob ratio 1.1 0.7-2 Not Available [facility] ([facility]) [address] [facility], [place], [address], 02/01/2025 09:33:09 02/02/20 25 02/01/2025 COMP METAB OLIC PANEL calcium 8.5 mg/dL 8.5-10 .5 Not Available [facility] ([facility]) [address] [place], [address], 02/01/2025 09:33:09 02/02/20 25 02/01/2025 COMP METAB OLIC PANEL bilirubin total 0.30 mg/dL 0.10-1 .00 Not Available [facility] ([facility]) [address], [place], [address], 02/01/2025 09:33:09 02/02/20 25 02/01/2025 COMP METAB OLIC PANEL AST (SGOT) 14 U/L 0-37 Not Available [facility] ([facility]) [address], [place], [address], 02/01/2025 09:33:09 02/02/20 25 02/01/2025 COMP METAB OLIC PANEL ALT (SGPT) 16 U/L 0-65 Not Available [facility] ([facility]) [address], [place], [address], 02/01/2025 09:33:09 02/02/20 25 02/01/2025 COMP METAB OLIC PANEL alk phosphatase 132 U/L 46-116 high Not Available [facility] ([facility]) [address], [place], [address], 02/01/2025 09:33:09 02/02/20 25 02/01/2025 THYRO ID PANEL W/TSH T3 uptake 31.00 % 24.00- 39.00 Not Available [facility] ([facility]) [address] [place], [address], 02/01/2025 09:33:11 02/02/20 25 02/01/2025 THYRO ID PANEL W/TSH T4 total 6.5 mcg/d L 4.5-12 .1 Not Available [facility] ([facility]) [address] [place], [address], 02/01/2025 09:33:11 02/02/20 25 02/01/2025 THYRO ID PANEL W/TSH free thyroxine index 2.02 1.60-3 .70 Not Available [facility] ([facility]) [address] [facility], [address], 02/01/2025 09:33:11 02/02/20 25 02/01/2025 THYRO ID PANEL W/TSH thyroid stim hormone 2.10 mIU/L 0.36-3 .74 Not Available [facility] ([facility]) [address], [place], [address], 02/01/2025 09:33:11 02/02/20 25 02/01/2025 MAGNE SIUM magnesium 1.8 mg/dL 1.8-2. 4 Not Available [facility] ([facility]) [address] [facility], [place], [address], 02/01/2025 09:55:48 02/02/20 25 02/01/2025 VITAM IN B12 vitamin B12 602 pg/mL 193-98 6 *Note : Refer miguelangel May. New Test Metho d in use. Not Available [facility] ([facility]) [address] [facility], [place], [address], 02/01/2025 10:28:32 02/02/20 25 02/01/2025 VITAM IN B12 folate (folic acid), serum 9.4 NG/mL 8.6-58 .9 *Note : Refer miguelangel May. New Test Metho d in use. Not Available [facility] ([facility]) [address] [facility], [place], [address], 02/01/2025 10:28:32 02/02/20 25 02/02/2025 CORTI GENEVIEVE cortisol 12.3 ug/dL 6.2-19 .4 Pleas e Note: The refer miguelangel carver and allan ing for this test is for an AM colle ction . If this is a PM colle ction pleas e use: Corti genevieve PM: 2.3-1 1.9 Perfo rmed at: CB - [facility] [address] [address] Lab Direc tor: Seth chu PhD, Phone : [phone] Not Available [facility] ([facility]) [address], [place], [address], 02/02/2025 06:11:36 02/23/20 25 02/22/2025 CBC AUTO W DIFF WBC 7.6 K/uL 4.0-10 .5 Not Available [facility] ([facility]) [address], [place], [address], 02/22/2025 08:44:25 02/23/20 25 02/22/2025 CBC AUTO W DIFF RBC 4.8 M/mm3 4.7-6. 1 Not Available [facility] ([facility]) [address], [place], [address], 02/22/2025 08:44:25 02/23/20 25 02/22/2025 CBC AUTO W DIFF HGB 14.2 gm/dL 13.5-1 8.0 Not Available [facility] ([facility]) [address], [place], [address], 02/22/2025 08:44:25 02/23/20 25 02/22/2025 CBC AUTO W DIFF HCT 43.2 % 42.0-5 2.0 Not Available [facility] ([facility]) [address], [place], [address], 02/22/2025 08:44:25 02/23/20 25 02/22/2025 CBC AUTO W DIFF MCV 89.6 fL 78-100 Not Available [facility] ([facility]) [address] , [place], [address], 02/22/2025 08:44:25 02/23/20 25 02/22/2025 CBC AUTO W DIFF MCH 29.5 pg 27-31 Not Available [facility] ([facility]) [address], [place], [address], 02/22/2025 08:44:25 02/23/20 25 02/22/2025 CBC AUTO W DIFF MCHC 32.9 g/dL 32-36 Not Available [facility] ([facility]) [address] , [place], [address], 02/22/2025 08:44:25 02/23/20 25 02/22/2025 CBC AUTO W DIFF RDW 13.4 % 11.5-1 4.0 Not Available [facility] ([facility]) [address] , [place], [address], 02/22/2025 08:44:25 02/23/20 25 02/22/2025 CBC AUTO W DIFF platelet count 171 K/uL 150-45 0 Not Available [facility] ([facility]) [address], [place], [address], 02/22/2025 08:44:25 02/23/20 25 02/22/2025 CBC AUTO W DIFF MPV 10.7 fL 6-9.5 high Not Available [facility] ([facility]) [address], [place], [address], 02/22/2025 08:44:25 02/23/20 25 02/22/2025 CBC AUTO W DIFF neutrophil% 63.7 % 43-65 Not Available [facility] ([facility]) [address] , [place], [address], 02/22/2025 08:44:25 02/23/20 25 02/22/2025 CBC AUTO W DIFF lymphocyte% 26.4 % 20.5-4 5.5 Not Available [facility] ([facility]) [address] [place], [address], 02/22/2025 08:44:25 02/23/20 25 02/22/2025 CBC AUTO W DIFF monocyte% 5.9 % 5.5-11 .7 Not Available [facility] ([facility]) [address], [place], [address], 02/22/2025 08:44:25 02/23/20 25 02/22/2025 CBC AUTO W DIFF eosinophil% 3.4 % 0.9-2. 9 high Not Available [facility] ([facility]) [address], [place], [address], 02/22/2025 08:44:25 02/23/20 25 02/22/2025 CBC AUTO W DIFF basophil% 0.3 % 0.2-1. 0 Not Available [facility] ([facility]) [address] [facility], [place], [address], 02/22/2025 08:44:25 02/23/20 25 02/22/2025 CBC AUTO W DIFF immature granulocytes % 0.3 % 0.0-0. 8 Not Available [facility] ([facility]) [address] [facility], [place], [address], 02/22/2025 08:44:25 02/23/20 25 02/22/2025 CBC AUTO W DIFF nucleated red blood cells % 0.0 % Not Available [facility] ([facility]) [address] [facility], [place], [address], 02/22/2025 08:44:25 02/23/20 25 02/22/2025 CBC AUTO W DIFF neutrophil# 4.8 K/uL 2.2-4. 8 Not Available [facility] ([facility]) [address] [place], [address], 02/22/2025 08:44:25 02/23/20 25 02/22/2025 CBC AUTO W DIFF lymphocyte# 2.0 cell/ mcL 1.3-2. 9 Not Available [facility] ([facility]) [address] [place], [address], 02/22/2025 08:44:25 02/23/20 25 02/22/2025 CBC AUTO W DIFF monocyte# 0.5 cell/ mcL 0.3-0. 8 Not Available [facility] ([facility]) [address] , [place], [address], 02/22/2025 08:44:25 02/23/20 25 02/22/2025 CBC AUTO W DIFF eosinophil# 0.3 cell/ mcL 0-0.2 high Not Available [facility] ([facility]) [address] , [place], [address], 02/22/2025 08:44:25 02/23/20 25 02/22/2025 CBC AUTO W DIFF basophil# 0.0 cell/ mcL 0.0-1. 0 Not Available [facility] ([facility]) [address], [place], [address], 02/22/2025 08:44:25 02/23/20 25 02/22/2025 CBC AUTO W DIFF immature gramulocytes # 0.02 K/uL Not Available [facility] ([facility]) [address], [place], [address], 02/22/2025 08:44:25 02/23/20 25 02/22/2025 CBC AUTO W DIFF nucleated red blood cells # 0.00 K/uL Not Available [facility] ([facility]) [address] [facility], [place], [address], 02/22/2025 08:44:25 02/23/20 25 02/22/2025 CBC AUTO W DIFF manual differential NO Not Available [facility] ([facility]) [address], [place], [address], 02/22/2025 08:44:25 02/23/20 25 02/22/2025 COMP METAB OLIC PANEL sodium 140 mmol/ L 136-14 5 Not Available [facility] ([facility]) [address], [place], [address], 02/22/2025 09:03:10 02/23/20 25 02/22/2025 COMP METAB OLIC PANEL potassium 3.7 mmol/ L 3.6-5. 0 Not Available [facility] ([facility]) [address] , [place], [address], 02/22/2025 09:03:10 02/23/20 25 02/22/2025 COMP METAB OLIC PANEL chloride 100 mmol/ L 98-107 Not Available [facility] ([facility]) [address] , [place], [address], 02/22/2025 09:03:10 02/23/20 25 02/22/2025 COMP METAB OLIC PANEL carbon dioxide 33.0 mmol/ L 21.0-3 2.0 high Not Available [facility] ([facility]) [address] , [place], [address], 02/22/2025 09:03:10 02/23/20 25 02/22/2025 COMP METAB OLIC PANEL anion gap 10.7 Not Available [facility] ([facility]) [address] , [place], [address], 02/22/2025 09:03:10 02/23/20 25 02/22/2025 COMP METAB OLIC PANEL glucose 143 mg/dL 70-120 high Not Available [facility] ([facility]) [address] [place], [address], 02/22/2025 09:03:10 02/23/20 25 02/22/2025 COMP METAB OLIC PANEL BUN 17 mg/dL 7-18 Not Available [facility] ([facility]) [address] [place], [address], 02/22/2025 09:03:10 02/23/20 25 02/22/2025 COMP METAB OLIC PANEL creatinine 1.2 mg/dL 0.6-1. 3 Not Available [facility] ([facility]) [address] , [place], [address], 02/22/2025 09:03:10 02/23/20 25 02/22/2025 COMP METAB OLIC PANEL glomerular filtration rate 62 mlper min 60- GFR LIMIT ATION : The eGFR equat ion CKD-E PI 2020 is not appli cable for pedia tric patie nts or great er than 90 years of age. The follo wing condi tions may alter the GFR resul t: extre mes in body size, malnu triti on or obesi ty, skele valentine muscl e disea se, parap legia or quadr ipleg ia, veget lashae diet or rapid ly gilbert ing kiney funct ion. Not Available [facility] ([facility]) [address] , [place], [address], 02/22/2025 09:03:10 02/23/20 25 02/22/2025 COMP METAB OLIC PANEL osmolality (calculated) 295 mOsm/ kg 275-30 1 OSMOL ALITY IS A CALCU LATIO N UTILI ZING THE SERUM /PLAS MA SODIU M, GLUCO SE AND UREA NITRO GEN (BUN) LEVEL S. FOR THE MOST ACCUR ATE RESUL T A MEASU RED SERUM OSMOL ALITY IS SUGGE STED. Not Available [facility] ([facility]) [address], [place], [address], 02/22/2025 09:03:10 02/23/20 25 02/22/2025 COMP METAB OLIC PANEL total protein 7.5 g/dL 6.4-8. 2 Not Available [facility] ([facility]) [address], [place], [address], 02/22/2025 09:03:10 02/23/20 25 02/22/2025 COMP METAB OLIC PANEL albumin 3.4 g/dL 3.4-5. 0 Not Available [facility] ([facility]) [address], [place], [address], 02/22/2025 09:03:10 02/23/20 25 02/22/2025 COMP METAB OLIC PANEL globulin 4.1 Not Available [facility] ([facility]) [address] , [place], [address], 02/22/2025 09:03:10 02/23/20 25 02/22/2025 COMP METAB OLIC PANEL alb/glob ratio 0.8 0.7-2 Not Available [facility] ([facility]) [address] , [place], [address], 02/22/2025 09:03:10 02/23/20 25 02/22/2025 COMP METAB OLIC PANEL calcium 9.3 mg/dL 8.5-10 .5 Not Available [facility] ([facility]) [address], [place], [address], 02/22/2025 09:03:10 02/23/20 25 02/22/2025 COMP METAB OLIC PANEL bilirubin total 0.70 mg/dL 0.10-1 .00 Not Available [facility] ([facility]) [address] , [place], [address], 02/22/2025 09:03:10 02/23/20 25 02/22/2025 COMP METAB OLIC PANEL AST (SGOT) 15 U/L 0-37 Not Available [facility] ([facility]) [address] , [place], [address], 02/22/2025 09:03:10 02/23/20 25 02/22/2025 COMP METAB OLIC PANEL ALT (SGPT) 25 U/L 0-65 Not Available [facility] ([facility]) [address], [place], [address], 02/22/2025 09:03:10 02/23/20 25 02/22/2025 COMP METAB OLIC PANEL alk phosphatase 150 U/L 46-116 high Not Available [facility] ([facility]) [address] , [place], [address], 02/22/2025 09:03:10 02/23/20 25 02/22/2025 THYRO ID PANEL W/TSH T3 uptake 33.00 % 24.00- 39.00 Not Available [facility] ([facility]) [address], [place], [address], 02/22/2025 09:03:13 02/23/20 25 02/22/2025 THYRO ID PANEL W/TSH T4 total 7.0 mcg/d L 4.5-12 .1 Not Available [facility] ([facility]) [address], [place], [address], 02/22/2025 09:03:13 02/23/20 25 02/22/2025 THYRO ID PANEL W/TSH free thyroxine index 2.31 1.60-3 .70 Not Available [facility] ([facility]) [address], [place], [address], 02/22/2025 09:03:13 02/23/20 25 02/22/2025 THYRO ID PANEL W/TSH thyroid stim hormone 2.86 mIU/L 0.36-3 .74 Not Available [facility] ([facility]) [address] [facility], [place], [address], 02/22/2025 09:03:13 02/23/20 25 02/23/2025 CORTI GENEVIEVE cortisol 9.0 ug/dL 6.2-19 .4 Pleas e Note: The refer ence inter wen and allan ing for this test is for an AM colle ction . If this is a PM colle ction pleas e use: Corti genevieve PM: 2.3-1 1.9 [facility]fo [facility] at: [facility] [address] [place] [address] Lab Direc tor: Seth chu PhD, Phone : [phone] Not Available [facility] ([facility]) [address], [place], [address], 02/23/2025 08:13:26 12/17/19 25 12/15/2024 US, abdom en [facility] [address] [facility] [address] [place] [address] Phone: Fax: Name: SUSANNAH KIM Exam Date: : 1944 Age 79 years Gender : M Access ion: [id number] Physic cindy: SIOBHAN MCGOVERN ty: [facility] Facili ty HSV: Outpat ient Exam: ABDOME N US A US ABDOME N perfor med on 7:48 AM KNOTTER HAND. INDICA TION: elevat ion of levels of liver transa minase levels TECHNI QUE: Limite d graysc romario ultras ound of the abdome n with color Dopple r as jayme gonzalez. COMPAR PATTI: PET/CT . FINDIN GS: * Pancre as: Predom inantl y obscur ed by bowel gas. * Liver: 16 cm. Normal in size and graysc romario appear ance. No focal lesion displa yed. * Gallbl adder: Nondis tended with cholel ithias is. No perich olecys tic fluid, signif icant mural thicke marcella or report ed sonogr aphic Bah sign. * Common bile duct: Nondil ated at 4 mm. * Right kidney : 4.6 x 4.7 x 9.6 cm. No hydron ephros is or identi fied shadow ing nephro lithia sis.. * Left kidney : 4.3 x 4.6 x 10.8 cm. No hydron ephros is or identi fied shadow ing nephro lithia sis.. * Spleen : Homoge neous and normal in size at 11.5 cm. * Aorta: Obscur ed by bowel gas. * IVC: Obscur ed by bowel gas. * Ascite s: None. IMPRES TONY: 1. Melanie kaur is withou t findin gs of acute cholec ystiti s. 2. Unrema rkable liver and biliar y tree. Electr onical ly signed by: Jacob lowery DO 2024 11:17 PM EST RP Workst ation: [id number] Dictat ed By: Jacob Chavez Transc ribed By: Transc ribed On: 025 8:48 AM Electr onical ly signed by: Jacob Chavez 025 Thank you for referr ing SUSANNAH KIM to [facility]. Legall y authen ticate d by OLIMPIA SMITH 12-15 08:48: 02 CC'ed Logic: Orderi ng Provid er: ELISEO MCCANN Attend ing Provid er: ELISEO MCCANN Referr ing Provid er: ELISEO MCCANN Admitt ing Provid er: ELISEO MCCANN [address] - Physical Therapy [address] [place] [address], [address], 12/18/2024 12:35:05 12/21/19 25 12/21/2024 ABD flat uprig ht [facility] [address] [place] [address] Phone: Fax: Name: SUSANNAH KIM Exam Date: : 1944 Age 79 years Gender : M Access ion: [id number] Physic cindy: SIOBHAN MCGOVERN Facili ty: [facility] Facili ty HSV: Outpat ient Exam: ABD FLAT UPRIGH T Abdome n: 3 views CLINIC AL INDICA TION: Male, 79 years old. consti pation COMPAR PATTI: None. Findin gs: There is a nonspe cific nondil ated nonobs tructi ve small bowel patter n. There is no free air. There is modera te stool seen throug hout the large colon. Impres tony: Nonspe cific nonobs tructi ve small bowel patter n. Modera te stool throug hout the large colon. Electr onical ly signed by: Chelsea Uribe MD 2024 11:13 AM EST RP Workst ation: [id number] Dictat ed By: Chelsea Uribe Transc ribed By: Transc ribed On: 025 11:07 AM Electr onical ly signed by: Chelsea Uribe 025 Thank you for referr ing CASHSARI MARY SUSANNAH Mauricio to [facility]. Legall y authen ticate d by DANNIE Mauricio 12-21 11:07: 54 CC'ed Logic: Orderi ng Provid er: ELISEO MCCANN Attend ing Provid er: ELISEO MCCANN Admitt ing Provid er: ELISEO javier[address] [place] [address] - Physical Therapy [address] [facility], [place], [address], 12/21/2024 14:12:39 01/18/20 25 12/25/2024 CT, abdom en + pelvi s, w/ contr ast No observ ation record ed. 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 Correl ation with PET/CT 12/04/19 25. Proced ure: Contig uous axial images throug h the chest, abdome n, and pelvis were acquir ed follow ing the admini strati on of intrav enous and oral contra st. Recons tructe d images in the angel l and sagitt al planes were review ed. CT scans at this facili ty use dose modula tion, iterat tony recons tructi on and/or weight based dosing when approp riate to reduce radiat ion dose to as low as reason ably achiev able. CHEST FINDIN GS: A 6 mm solid nodule in the mid left upper lobe latera lly and a 4 mm latera l right middle lobe nodule are stable compar ed to a prior PET/CT perfor med on 024 favori ng benign nodule s. New cluste rs of peribr onchia l nodula r opacit ies are seen near the base of the right upper lobe anteri deangelo and in the assistant hairstylist ior medial left upper lobe. Linear atelec tasis versus pleura l-pare nchyma l scarri ng is seen in the lower lobes bilate rally, left greate r than right. 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 Enlarg ed right perihi lar lymph nodes are unchan ged, an index right hilar node on image 33 measur es 1.3 cm short axis. Mildly promin ent medias tinal lymph nodes are stable . There is no new thorac ic lympha denopa thy. A dual-l ead pacer device is again noted. Heart size is normal . The thorac ic aorta is normal calibe r. Status post CABG. There is no pleura l effusi on or perica rdial effusi on. The esopha cristiana is within normal limits . No acute osseou s abnorm ality. IMPRES TONY: Stable right perihi lar lympha denopa thy indica tive of annabelle metast asis. No new thorac ic lympha denopa thy. New cluste rs of peribr onchia l nodula r opacit ies in the right upper lobe and assistant hairstylist ior left upper lobe charac terist ic of a nonspe cific bronch ioliti s. Solid left upper lobe and right middle lobe pulmon jr nodule s are stable compar ed to 2023 favori ng benign nodule s. Attent ion on follow -up imagin g is recomm ended to ensure stabil ity. ABDOME N AND PELVIS FINDIN GS: A few small stones are seen in the gallbl adder. The liver, pancre as, spleen , right adrena l gland, and left kidney are within normal limits . A small upper pole right renal cyst is stable . The left adrena l gland nodule is stable favori ng an adenom a. The abdomi nal aorta is stable measur ing 2.7 cm in [facility] er. The stomac h and small bowel loops are within normal limits . The colon is within normal limits . The urinar y bladde r is normal . The prosta te is unrema rkable . A right inguin al hernia is presen t contai marcella nonobs tructe d small bowel loops. There is no ascite s, inflam matory strand ing in the mesent joseluis or Legall y authen ticate d by BROOKE Michel 03-05 09:39: 13 pneumo perito neum. There is no new lympha denopa thy in the abdome n or pelvis . Multil evel lumbar degene rative disc diseas e is eviden t. No acute osseou s abnorm ality. IMPRES TONY: No eviden ce for metast atic diseas e in the abdome n or pelvis . Cholel ithias is. Right inguin al hernia contai marcella nonobs tructe d small bowel loops. Electr onical ly signed by: Gualberto Cox MD 2024 12:08 PM EDT RP Workst ation: [id number] Dictat ed By: Gualberto Cox Transc ribed By: Transc ribed On: 03/05/20 9:39 AM Electr onical ly signed by: Gualberto Cox 03/05/20 Thank you for referr ing PHONG THSUSANNAH Y to [facility]. Legall y authen ticate d by COX GUALBERTO L 03-05 09:39: 13 CC'ed Logic: Orderi ng Provid er: ELISEO MCCANN Attend ing Provid er: ELISEO MCCANN Referr ing Provid er: ELISEO MCCANN Admitt ing Provid er: ELISEO MCCANN [email or web address] [facility] [address] [facility], [place], [address], 03/07/2025 11:08:17 03/05/20 25 03/05/2025 CT, abdom en + pelvi s, w/ contr ast [facility] [address] [facility] [facility] [address] [place] [address] Phone: Fax: Name: SUSANNAH KIM Exam Date: 03/05/20 : 1944 Age 79 years Gender : M Access ion: [id number] Physic cindy: SIOBHAN MCGOVERN Facili ty: [facility] Facili ty HSV: Outpat ient Exam: CT ABD PEL W EXAM: CT ABDOME N PELVIS WITH IV CONTRA ST, CT CHEST WITH IV CONTRA ST 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 Correl ation with PET/CT 12/04/19 25. Proced ure: Contig uous axial images throug h the chest, abdome n, and pelvis were acquir ed follow ing the admini strati on of intrav enous and oral contra st. Recons tructe d images in the angel l and sagitt al planes were review ed. CT scans at this facili ty use dose modula tion, iterat tony recons tructi on and/or weight based dosing when approp riate to reduce radiat ion dose to as low as reason ably achiev able. CHEST FINDIN GS: A 6 mm solid nodule in the mid left upper lobe latera lly and a 4 mm latera l right middle lobe nodule are stable compar ed to a prior PET/CT perfor med on 2/21/2 024 favori ng benign nodule s. New cluste rs of peribr onchia l nodula r opacit ies are seen near the base of the right upper lobe anteri deangelo and in the assistant hairstylist ior medial left upper lobe. Linear atelec tasis versus pleura l-pare nchyma l scarri ng is seen in the lower lobes bilate rally, left greate r than right. 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 Enlarg ed right perihi lar lymph nodes are unchan ged, an index right hilar node on image 33 measur es 1.3 cm short axis. Mildly promin ent medias tinal lymph nodes are stable . There is no new thorac ic lympha denopa thy. A dual-l ead pacer device is again noted. Heart size is normal . The thorac ic aorta is normal calibe r. Status post CABG. There is no pleura l effusi on or perica rdial effusi on. The esopha cristiana is within normal limits . No acute osseou s abnorm ality. IMPRES TONY: Stable right perihi lar lympha denopa thy indica tive of annabelle metast asis. No new thorac ic lympha denopa thy. New cluste rs of peribr onchia l nodula r opacit ies in the right upper lobe and assistant hairstylist ior left upper lobe charac terist ic of a nonspe cific bronch ioliti s. Solid left upper lobe and right middle lobe pulmon jr nodule s are stable compar ed to 2023 favori ng benign nodule s. Attent ion on follow -up imagin g is recomm ended to ensure stabil ity. ABDOME N AND PELVIS FINDIN GS: A few small stones are seen in the gallbl adder. The liver, pancre as, spleen , right adrena l gland, and left kidney are within normal limits . A small upper pole right renal cyst is stable . The left adrena l gland nodule is stable favori ng an adenom a. The abdomi nal aorta is stable measur ing 2.[address] diamet er. The stomac h and small bowel loops are within normal limits . The colon is within normal limits . The urinar y bladde r is normal . The prosta te is unrema rkable . A right inguin al hernia is presen t contai marcella nonobs tructe d small bowel loops. There is no ascite s, inflam matory strand ing in the mesent joseluis or Legall y authen ticate d by BROOKE Michel 03-05 09:38: 58 pneumo perito neum. There is no new lympha denopa thy in the abdome n or pelvis . Multil evel lumbar degene rative disc diseas e is eviden t. No acute osseou s abnorm ality. IMPRES TONY: No eviden ce for metast atic diseas e in the abdome n or pelvis . Cholel ithias is. Right inguin al hernia contai marcella nonobs tructe d small bowel loops. Electr onical ly signed by: Gualberto Cox MD 2024 12:08 PM EDT RP Workst ation: [id number] Dictat ed By: Gualberto Cox Transc ribed By: Transc ribed On: 03/05/20 9:38 AM Electr onical ly signed by: Gualberto Cox 03/05/20 Thank you for referr ing ARLENE KIMMIREYA Mauricio to [facility] Legall y authen ticate d by BROOKE Michel 03-05 09:38: 58 CC'ed Logic: Orderi ng Provid er: ELISEO MCCANN Attend ing Provid er: ELISEO MCCANN Referr ing Provid er: ELISEO MCCANN Admitt ing Provid er: ELISEO MCCANN [facility] - [facility] Therapy [address] [place] [address], [id number], 03/07/2025 11:08:17 03/07/20 25 03/05/2025 CT, neck, soft tissu e, w/ contr ast [facility] [address] [place] [address] Phone: Fax: Name: SUSANNAH KIM Exam Date: 03/05/20 : 1944 Age 79 years Gender : M Access ion: [id number] Physic cindy: ELISEO Murillo SIOBHAN Facili ty: [facility] Facili ty HSV: Outpat ient Exam: CT NECK SOFT TISSUE WITH HISTOR Y: 79 years 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 Sagitt al and angel l reform atted images were obtain ed. Automa carlos exposu re contro l was utiliz ed. Compar patti: PET CT 2023 Findin gs: In the left paroti d gland a periph erally enhanc ing mass measur es 1.7 x 1.1 cm (axial image 35) and a hetero geneou sly enhanc ing mass measur es 1.2 x 1.1 cm (image 29) these are simila r in appear ance to the hyperm etabol ic lesion seen on prior PET imagin g. In the right paroti d gland a periph erally enhanc ing mass measur es 1.6 x 1.3 cm (image 32) with adjace nt enlarg ed cervic al adenop athy measur ing up to 1.4 cm in diamet er, which appear s to be new compar ed to prior imagin g. Decrea sed soft tissue in the hypogl ossal region at the level of the hyoid bone, compat ible with postsu rgical change s, with no discre te enhanc ing lesion in this region . Limite d images of the lung apices demons trates centri lobula r emphys mathieu. No suspic ious nodule is identi fied. IMPRES TONY: 1. Redemo nstrat ion of left paroti d masses with new right paroti d mass and cervic al adenop athy consis tent with progre ssion of metast atic diseas e. 2. Post surgic al findin gs of primar y mass resect ion in the subglo ttic region with no findin gs of residu al/rec urrent diseas e in this area. Electr onical ly signed by: Tomi Leija MD 2024 10:11 AM EDT RP Workst ation: [id number] Dictat ed By: Tomi Leija Transc ribed By: Transc ribed On: 03/05/20 9:38 AM Electr onical ly signed by: Tomi Leija 03/05/20 Thank you for referr SUSANNAH Jacques to [facility]. Legall y jhon rosas d by ROEL GALEANA 03-05 09:38: 47 CC'ed Logic: Orderi ng Provid er: ELISEO MCCANN Attend ing Provid er: ELISEO MCCANN Referr ing Provid er: ELISEO MCCANN Admitt ing Provid er: ELISEO MCCANN [email or web address] [facility] [address] [facility], [place], [address], 03/07/2025 11:07:53 Result Notes None recorded. Procedures Surgical History Date Name Laterality Status Provider Name and Address Organization Details Recorded Time open heart surgery completed Janeth Aguileradilip [facility] & [place] 02/14/2024 09:56:24 operative procedure on knee completed Kristine Gipson [facility] & [place] 04/05/2024 13:20:11 Imaging Results None recorded. Procedure Notes None recorded. Medical Equipment None Reported. Allergies Allergen ID Allergen Name Allergen Category Reaction Reaction Severity Criticality Documentation Date Start Date Code Code System Note Provider Name and Address Organization Details Recorded Time 085083 Product containin g penicilli n (product) medicatio n hives Not available Not available 02/06/2025 [id number] SNOMED Jackie [facility] & [place] 08:40:08 Medications Name Sig Start Date Stop Date Status Note LastModified by Organization Details LastModified Time losartan 50 mg tablet TAKE ONE TABLET BY MOUTH EVERY DAY active Not Available Not Available No t Available furosemide 40 mg tablet TAKE ONE TABLET BY MOUTH EVERY OTHER DAY active Not Available Not Available No t Available atorvastati n 40 mg tablet TAKE ONE TABLET BY MOUTH EVERY DAY AT BEDTIME FOR CHOLESTER OL active Not Available Not Available No t Available atorvastati n 80 mg tablet TAKE ONE TABLET BY MOUTH EVERY DAY active Not Available Not Available No t Available prednisone 10 mg tablet TAKE TWO TABLETS BY MOUTH ONCE DAILY FOR 10 DAYS, THEN TAKE ONE TABLET ONCE DAILY FOR 10 DAYS -- FINISH ALL MEDICINE -- --TAKE WITH FOOD-- active Not Available Not Available No t Available doxycycline hyclate 100 mg capsule TAKE ONE CAPSULE BY MOUTH TWICE DAILY FOR 10 DAYS -- FINISH ALL MEDICINE -- 03/14 completed Not Available Not Available Not Available ipratropium 0.5 mg-albutero l 3 mg (2.5 mg base)/3 mL nebulizatio n soln INHALE THE CONTENTS OF 1 VIAL VIA NEBULIZER EVERY 6 HOURS NEEDED active Not Available Not Available No t Available cetirizine 10 mg tablet TAKE ONE TABLET BY MOUTH EVERY DAY active Not Available Not Available No t Available azithromyci n 250 mg tablet TAKE 2 TABLETS BY MOUTH ON DAY 1, THEN TAKE 1 TABLET DAILY ON DAYS 2-5 03/14 completed Not Available Not Available Not Available ondansetron HCl 8 mg tablet TAKE ONE TABLET BY MOUTH TWICE DAILY active Not Available Not Available No t Available phenazopyri dine 200 mg tablet TAKE ONE TABLET BY MOUTH EVERY 8 HOURS FOR 3 DAYS active Not Available Not Available No t Available ondansetron HCl 4 mg tablet TAKE ONE TABLET BY MOUTH EVERY 6 HOURS active Not Available Not Available No t Available prednisone 20 mg tablet TAKE TWO TABLETS BY MOUTH ONCE DAILY FOR SIX DAYS -- FINISH ALL MEDICINE -- --TAKE WITH FOOD-- 03/14 completed Not Available Not Available Not Available metoprolol succinate ER 100 mg tablet,exte nded release 24 hr TAKE ONE TABLET BY MOUTH EVERY DAY active Not Available Not Available No t Available sulfamethox azole 800 mg-trimetho prim 160 mg tablet TAKE ONE TABLET BY MOUTH TWICE DAILY FOR 10 DAYS 03/14 completed Not Available Not Available Not Available magnesium oxide 400 mg (241.3 mg magnesium) tablet TAKE ONE TABLET BY MOUTH EVERY DAY active Not Available Not Available No t Available tamsulosin 0.4 mg capsule TAKE ONE CAPSULE BY MOUTH EVERY DAY active Not Available Not Available No t Available pantoprazol e 40 mg tablet,tolu yed release TAKE ONE TABLET BY MOUTH EVERY DAY active Not Available Not Available No t Available polymyxin B sulfate 10,000 unit-trimet hoprim 1 mg/mL eye drops INSTILL 1 DROP INTO AFFECTED EYES FOUR TIMES DAILY FOR 5 DAYS active Not Available Not Available No t Available nystatin-tr iamcinolone 100,000 unit/g-0.1 % topical cream APPLY TOPICALLY TO THE AFFECTED AREA(S) TWICE DAILY active Not Available Not Available No t Available digoxin 125 mcg (0.125 mg) tablet TAKE ONE TABLET BY MOUTH EVERY DAY 03/14 completed Not Available Not Available Not Available polyethylen e glycol 3350 17 gram/dose oral powder DISSOLVE 17 GRAMS OF POWDER INTO 4 TO 8 OUNCES OF WATER, JUICE, SODA, COFFEE, OR TEA THEN DRINK daily EVERY DAY NEEDED DIRECTED active Not Available Not Available No t Available levofloxaci n 750 mg tablet TAKE ONE TABLET BY MOUTH ONCE DAILY FOR 7 DAYS -- FINISH ALL MEDICINE -- 03/14 completed Not Available Not Available Not Available Ventolin HFA 90 mcg/actuati on aerosol inhaler INHALE TWO PUFFS BY MOUTH EVERY 6 HOURS NEEDED active Not Available Not Available No t Available metformin ER 750 mg tablet,exte nded release 24 hr TAKE ONE TABLET BY MOUTH TWICE DAILY --TAKE WITH FOOD-- active Not Available Not Available No t Available Linzess 145 mcg capsule TAKE ONE CAPSULE BY MOUTH EVERY DAY active Not Available Not Available No t Available Eliquis 5 mg tablet TAKE ONE TABLET BY MOUTH TWICE DAILY active Not Available Not Available No t Available Jardiance 25 mg tablet TAKE ONE TABLET BY MOUTH EVERY DAY active Not Available Not Available No t Available [facility] active Not Available Not Available No t Available Trulicity 1.5 mg/0.5 mL subcutaneou s pen injector INJECT THE CONTENTS OF 1 PEN (1.5 MG / 0.5ML) SUBCUTANE OUSLY ONCE A WEEK DIRECTED active Not Available Not Available No t Available Vitals Date Recorded Body height Body mass index (BMI) Body weight Body temperature Oxygen saturation Oxygen saturation in Arterial blood by Pulse oximetry Heart rate Respiratory rate Systolic blood pressure Diastolic blood pressure Provider Name and Address Organization Details Last Updated DateTime 5 180.34 cm 23.8 kg/m2 74015.1 4 g 97.9 [degF] 95 % 95 % 70 /min 18 /min 120 mm[Hg] 63 mm[Hg] Janeth NGUYEN - [facility] - [place] & [place] 5 09:18:24 Date Recorded Body height Body mass index (BMI) Body weight Heart rate Oxygen saturation Oxygen saturation in Arterial blood by Pulse oximetry Body temperature Systolic blood pressure Diastolic blood pressure Provider Name and Address Organization Details Last Updated DateTime 5 180.34 cm 23.8 kg/m2 47782.8 6 g 70 /min 100 % 100 % 98.2 [degF] 110 mm[Hg] 60 mm[Hg] Jackie Roldan [facility] & [place] 5 08:42:53 Date Recorded Body height Body mass index (BMI) Body weight Body temperature Oxygen saturation Oxygen saturation in Arterial blood by Pulse oximetry Heart rate Systolic blood pressure Diastolic blood pressure Provider Name and Address Organization Details Last Updated DateTime 5 180.34 cm 23.8 kg/m2 99530.5 8 g 97.8 [degF] 94 % 94 % 70 /min 100 mm[Hg] 59 mm[Hg] Gonzalo Mendes [facility] & [place] 5 08:19:37 Date Recorded Body height Body temperature Oxygen saturation Oxygen saturation in Arterial blood by Pulse oximetry Heart rate Systolic blood pressure Diastolic blood pressure Provider Name and Address Organization Details Last Updated DateTime 5 180.34 cm 97.6 [degF] 96 % 96 % 70 /min 102 mm[Hg] 64 mm[Hg] Kristine Gipson [facility] & [place] 5 08:13:31 Social History Question Answer Notes LastModified by Tellja Details LastModified Time Tobacco Smoking Status Current Every Day Smoker Janeth [facility] & [place] 02/14/2024 09:56:11 What Is Your Level Of Caffeine Consumption? Occasional [email or web address] Information not available 04/05/2024 What Was The Date Of Your Most Recent Tobacco Screening? 04/05/2024 [email or web address] Information not available 04/05/2024 At What Age Did You Start Smoking Tobacco? 8 [email or web address] Information not available 02/14/2024 How Much Tobacco Do You Smoke? 1 PPD [email or web address] Information not available 02/14/2024 How Many Years Have You Smoked Tobacco? 69 [email or web address] Information not available 02/14/2024 Sex: Unknown Functional Status Question Answer Note LastModified by Followap ion Details LastModified Time Do you use any illicit or recreational drugs? No [email or web address] Information not available 02/14/2024 Do you or have you ever used any other forms of tobacco or nicotine? No [email or web address] Information not available 04/05/2024 What is your level of alcohol consumption? None [email or web address] Information not available 02/14/2024 Mental Status None recorded. Family History Nothing Reported. Medical History No medical history recorded. Immunizations Vaccine Type Date Status Note Provider Nam e and Address Organization Details Recorded Time COVID-19 vaccine, vector-nr, rS-Ad26, PF, 0.5 mL 1 completed Kristine price, [place] - [facility] [place] & [place] 04/05/2024 13:16:44 Influenza, split virus, trivalent, preservative 9 completed Kristine price, [place] - [facility] - [place] & [place] 04/05/2024 13:16:44 Past Encounters Encounter ID Performer Location Encounter Start Date Encounter Closed Date Diagnosis/Indication Diagnosis SNOMED-CT Code Diagnosis ICD10 Code Diagnosis Note [id number] Evangelist Rees MD [facility] [address] [facility] [address] [place] [address] 02/14/2024 09:33:39 02/14/2024 10:42:52 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 Laryngosco py performed on December 08, 2023 with large left supraglott ic larynx mass that biopsy demonstrat ed squamous cell carcinoma. PET scan performed on December 22, 2023 with findings of supraglott ic mass as well as hypermetab olism cervical lymph nodes and lung nodules that were hypermetab olic consistent with distant metastatic disease.Pu lmonary nodule in the right upper lobe 1.1 cm in size. Superior segment nodule of the right lower lobe 1.0 cm with SUV of 6.3. Left adrenal mass measuring 2.5 x 3.3 cm with no significan t uptake. Patient had EBUS performed on December 31, 2023 to right lung lesions with 2 lung nodules sampled both of those pathology consistent with squamous cell carcinoma. Repeat PET scan on January 12, 2024 with adrenal mass negative. 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 T4a N1 M1. ECOG 0. Patient presents for evaluation on February 14, 2024. Discussed with patient the cement treatment options based on NCCN guidelines . Considerat ion for first-line immune therapy with Keytruda as likely patient would tolerate well. Hopefully would provide patient with response. Will request P 16 results from [facility]. Discussed additional testing with on peripheral blood tempus testing. Will follow-up for any signs of mutational status. Metastatic malignant neoplasm to lung [id number] C78.01 PET scan performed on December 22, 2023 with findings of supraglott ic mass as well as hypermetab olism cervical lymph nodes and lung nodules that were hypermetab olic consistent with distant metastatic disease.Pu lmonary nodule in the right upper lobe 1.1 cm in size. Superior segment nodule of the right lower lobe 1.0 cm with SUV of 6.3. Left adrenal mass measuring 2.5 x 3.3 cm with no significan t uptake. Nausea [id number] R11.0 as needed zofran and phenergren called in. [id number] Siobhan Shannon PA-C [facility] [address] [place] [address] 04/05/2024 13:12:21 04/05/2024 13:54:16 Squamous cell carcinoma of larynx [id number] C32.9 CT scan on November 24, 2023 demonstrat ed a T4a laryngeal mass. Laryngosco py performed on December 08, 2023 with large left supraglott ic larynx mass that biopsy demonstrat ed squamous cell carcinoma. PET scan performed on December 22, 2023 with findings of supraglott ic mass as well as hypermetab olism cervical lymph nodes and lung nodules that were hypermetab olic consistent with distant metastatic disease.Pu lmonary nodule in the right upper lobe 1.1 cm in size. Superior segment nodule of the right lower lobe 1.0 cm with SUV of 6.3. Left adrenal mass measuring 2.5 x 3.3 cm with no significan t uptake. Patient had EBUS performed on December 31, 2023 to right lung lesions with 2 lung nodules sampled both of those pathology consistent with squamous cell carcinoma. Repeat PET scan on January 12, 2024 with adrenal mass negative. 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 T4a N1 M1. ECOG 0. Discussed with patient the cement treatment options based on NCCN guidelines . Considerat ion for first-line immune therapy with Keytruda as likely patient would tolerate well. Hopefully would provide patient with response. Will request P 16 results from [facility]. Discussed additional testing with on peripheral blood tempus testing. Will follow-up for any signs of mutational status. Patient returns on April 05, 2024. Patient will receive cycle 1 of Keytruda today. Immunother apy education performed before treatment was started. Will follow up tolerabili ty Metastatic malignant neoplasm to lung [id number] C78.01 PET scan performed on December 22, 2023 with findings of supraglott ic mass as well as hypermetab olism cervical lymph nodes and lung nodules that were hypermetab olic consistent with distant metastatic disease.Pu lmonary nodule in the right upper lobe 1.1 cm in size. Superior segment nodule of the right lower lobe 1.0 cm with SUV of 6.3. Left adrenal mass measuring 2.5 x 3.3 cm with no significan t uptake. Nausea [id number] R11.0 as needed zofran and phenergren called in. Immunological therapy 76 315274 Z51.12 Cycle 1 of Keytruda on April 05, 2024. [id number] Siobhan Shannon PA-C [facility] [address] [facility] [address] [place] [address] 04/27/2024 08:56:12 04/27/2024 09:34:39 Squamous cell carcinoma of larynx [id number] C32.9 CT scan on November 24, 2023 demonstrat ed a T4a laryngeal mass. Laryngosco py performed on December 08, 2023 with large left supraglott ic larynx mass that biopsy demonstrat ed squamous cell carcinoma. PET scan performed on December 22, 2023 with findings of supraglott ic mass as well as hypermetab olism cervical lymph nodes and lung nodules that were hypermetab olic consistent with distant metastatic disease.Pu lmonary nodule in the right upper lobe 1.1 cm in size. Superior segment nodule of the right lower lobe 1.0 cm with SUV of 6.3. Left adrenal mass measuring 2.5 x 3.3 cm with no significan t uptake. Patient had EBUS performed on December 31, 2023 to right lung lesions with 2 lung nodules sampled both of those pathology consistent with squamous cell carcinoma. Repeat PET scan on January 12, 2024 with adrenal mass negative. 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 T4a N1 M1. ECOG 0. Discussed with patient the cement treatment options based on NCCN guidelines . Considerat ion for first-line immune therapy with Keytruda as likely patient would tolerate well. Hopefully would provide patient with response. Will request P 16 results from [facility]. Discussed additional testing with on peripheral blood tempus testing. Will follow-up for any signs of mutational status. Patient returns on April 27, 2024. Patient will receive cycle 2 of Keytruda today. He is tolerating well so far. He has noticed a 3 cm right cervical node since previous visit. Denies any additional changes. Discussed will continue with Keytruda and will plan on doing a PET scan after cycle 4 of Keytruda. Metastatic malignant neoplasm to lung [id number] C78.01 PET scan performed on December 22, 2023 with findings of supraglott ic mass as well as hypermetab olism cervical lymph nodes and lung nodules that were hypermetab olic consistent with distant metastatic disease.Pu lmonary nodule in the right upper lobe 1.1 cm in size. Superior segment nodule of the right lower lobe 1.0 cm with SUV of 6.3. Left adrenal mass measuring 2.5 x 3.3 cm with no significan t uptake. Nausea [id number] R11.0 as needed zofran and phenergren called in. Immunological therapy 76 328044 Z51.12 Cycle 1 of Keytruda on April 05, 2024.Cycle 2 of Keytruda on April 27, 2024. [id number] Siobhan Shannon PA-C [facility] [address] [place] [address] 05/18/2024 08:33:38 05/18/2024 08:42:33 Squamous cell carcinoma of larynx [id number] C32.9 CT scan on November 24, 2023 demonstrat ed a T4a laryngeal mass. Laryngosco py performed on December 08, 2023 with large left supraglott ic larynx mass that biopsy demonstrat ed squamous cell carcinoma. PET scan performed on December 22, 2023 with findings of supraglott ic mass as well as hypermetab olism cervical lymph nodes and lung nodules that were hypermetab olic consistent with distant metastatic disease.Pu lmonary nodule in the right upper lobe 1.1 cm in size. Superior segment nodule of the right lower lobe 1.0 cm with SUV of 6.3. Left adrenal mass measuring 2.5 x 3.3 cm with no significan t uptake. Patient had EBUS performed on December 31, 2023 to right lung lesions with 2 lung nodules sampled both of those pathology consistent with squamous cell carcinoma. Repeat PET scan on January 12, 2024 with adrenal mass negative. 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 T4a N1 M1. ECOG 0. Discussed with patient the cement treatment options based on NCCN guidelines . Considerat ion for first-line immune therapy with Keytruda as likely patient would tolerate well. Hopefully would provide patient with response. Will request P 16 results from [facility]. Discussed additional testing with on peripheral blood tempus testing. Will follow-up for any signs of mutational status. Patient returns on May 18, 2024. Patient will receive cycle 3 of Keytruda today. He is tolerating well so far. The right cervical node has improved since previous visit. He has had some fatigue. Denies any additional changes. Discussed will continue with Keytruda and will plan on doing a PET scan after cycle 4 of Keytruda. Will follow up labs. Metastatic malignant neoplasm to lung [id number] C78.01 PET scan performed on December 22, 2023 with findings of supraglott ic mass as well as hypermetab olism cervical lymph nodes and lung nodules that were hypermetab olic consistent with distant metastatic disease.Pu lmonary nodule in the right upper lobe 1.1 cm in size. Superior segment nodule of the right lower lobe 1.0 cm with SUV of 6.3. Left adrenal mass measuring 2.5 x 3.3 cm with no significan t uptake. Nausea [id number] R11.0 as needed zofran and phenergren called in. Immunological therapy 76 804305 Z51.12 Cycle 1 of Keytruda on April 05, 2024.Cycle 2 of Keytruda on April 27, 2024.Cycle 3 of Keytruda on May 18, 2024. Fatigue [id number] R53.83 Patient has had some fatigue. Denies any additional changes. Will follow up labs. [id number] Siobhan Shannon PA-C [facility] [address] [place] [address] 06/08/2024 09:00:56 06/08/2024 09:26:16 Squamous cell carcinoma of larynx [id number] C32.9 CT scan on November 24, 2023 demonstrat ed a T4a laryngeal mass. Laryngosco py performed on December 08, 2023 with large left supraglott ic larynx mass that biopsy demonstrat ed squamous cell carcinoma. PET scan performed on December 22, 2023 with findings of supraglott ic mass as well as hypermetab olism cervical lymph nodes and lung nodules that were hypermetab olic consistent with distant metastatic disease.Pu lmonary nodule in the right upper lobe 1.1 cm in size. Superior segment nodule of the right lower lobe 1.0 cm with SUV of 6.3. Left adrenal mass measuring 2.5 x 3.3 cm with no significan t uptake. Patient had EBUS performed on December 31, 2023 to right lung lesions with 2 lung nodules sampled both of those pathology consistent with squamous cell carcinoma. Repeat PET scan on January 12, 2024 with adrenal mass negative. 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 T4a N1 M1. ECOG 0. Discussed with patient the cement treatment options based on NCCN guidelines . Considerat ion for first-line immune therapy with Keytruda as likely patient would tolerate well. Hopefully would provide patient with response. Will request P 16 results from [facility]. Discussed additional testing with on peripheral blood tempus testing. Will follow-up for any signs of mutational status. Patient returns on June 08, 2024. Patient will receive cycle 4 of Keytruda today. He is tolerating well so far. The right cervical node continues to improve. Appetite is improving and he is regaining lost weight. He has not having any odynophagi a or dysphagia. Discussed removing feeding tube if he continues to improve and gain weight. Will order PET scan since patient is completing cycle 4 of Keytruda. Will follow up labs. Metastatic malignant neoplasm to lung [id number] C78.01 PET scan performed on December 22, 2023 with findings of supraglott ic mass as well as hypermetab olism cervical lymph nodes and lung nodules that were hypermetab olic consistent with distant metastatic disease.Pu lmonary nodule in the right upper lobe 1.1 cm in size. Superior segment nodule of the right lower lobe 1.0 cm with SUV of 6.3. Left adrenal mass measuring 2.5 x 3.3 cm with no significan t uptake. Nausea [id number] R11.0 as needed zofran and phenergren called in. Immunological therapy 76 257621 Z51.12 Cycle 1 of Keytruda on April 05, 2024.Cycle 2 of Keytruda on April 27, 2024.Cycle 3 of Keytruda on May 18, 2024.Cycle 4 of Keytruda on June 08, 2024. Fatigue 03941197 R53.83 Patient has had some fatigue. Denies any additional changes. Will follow up labs. [id number] Siobhan Shannon PA-C [facility] [address] [place] [address] 06/29/2024 08:44:43 06/29/2024 09:19:14 Squamous cell carcinoma of larynx [id number] C32.9 CT scan on November 24, 2023 demonstrat ed a T4a laryngeal mass. Laryngosco py performed on December 08, 2023 with large left supraglott ic larynx mass that biopsy demonstrat ed squamous cell carcinoma. PET scan performed on December 22, 2023 with findings of supraglott ic mass as well as hypermetab olism cervical lymph nodes and lung nodules that were hypermetab olic consistent with distant metastatic disease.Pu lmonary nodule in the right upper lobe 1.1 cm in size. Superior segment nodule of the right lower lobe 1.0 cm with SUV of 6.3. Left adrenal mass measuring 2.5 x 3.3 cm with no significan t uptake. Patient had EBUS performed on December 31, 2023 to right lung lesions with 2 lung nodules sampled both of those pathology consistent with squamous cell carcinoma. Repeat PET scan on January 12, 2024 with adrenal mass negative. 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 T4a N1 M1. ECOG 0. Discussed with patient the cement treatment options based on NCCN guidelines . Considerat ion for first-line immune therapy with Keytruda as likely patient would tolerate well. Hopefully would provide patient with response. Will request P 16 results from [facility]. Discussed additional testing with on peripheral blood tempus testing. Will follow-up for any signs of mutational status. Patient returns on June 29, 2024. Patient will receive cycle 5 of Keytruda today. He is tolerating well so far. He has had some constipati on. Will send prescripti on for MiraLax. The right cervical node continues to improve. Appetite is improving and he is regaining lost weight. He has not having any odynophagi a or dysphagia. Discussed removing feeding tube if he continues to improve and gain weight. PET scan is scheduled for July 2024. Will follow up. Will follow up labs. Metastatic malignant neoplasm to lung [id number] C78.01 PET scan performed on December 22, 2023 with findings of supraglott ic mass as well as hypermetab olism cervical lymph nodes and lung nodules that were hypermetab olic consistent with distant metastatic disease.Pu lmonary nodule in the right upper lobe 1.1 cm in size. Superior segment nodule of the right lower lobe 1.0 cm with SUV of 6.3. Left adrenal mass measuring 2.5 x 3.3 cm with no significan t uptake. Nausea [id number] R11.0 as needed zofran and phenergren called in. Immunological therapy 76 586162 Z51.12 Cycle 1 of Keytruda on April 05, 2024.Cycle 2 of Keytruda on April 27, 2024.Cycle 3 of Keytruda on May 18, 2024.Cycle 4 of Keytruda on June 08, 2024.Cycle 5 of Keytruda on June 29, 2024. Hypomagnesemia [id number] E83.42 Labs on June 08, 2024 with magnesium low 1.6. Will follow-up labs today Constipation 43529631 K5 9.00 Patient has had some constipati on. Will send prescripti on for MiraLax. Cobalamin deficiency 190 428792 E53.8 History of vitamin B12 deficiency . He is currently receiving monthly vitamin B12. Labs on June 08, 2024 with vitamin B12 normal at 426. Normal folic acid [id number] Siobhan Shannon PA-C [facility] [address] [place] [address] 07/21/2024 09:56:03 07/21/2024 10:34:40 Squamous cell carcinoma of larynx [id number] C32.9 CT scan on November 24, 2023 demonstrat ed a T4a laryngeal mass. Laryngosco py performed on December 08, 2023 with large left supraglott ic larynx mass that biopsy demonstrat ed squamous cell carcinoma. PET scan performed on December 22, 2023 with findings of supraglott ic mass as well as hypermetab olism cervical lymph nodes and lung nodules that were hypermetab olic consistent with distant metastatic disease.Pu lmonary nodule in the right upper lobe 1.1 cm in size. Superior segment nodule of the right lower lobe 1.0 cm with SUV of 6.3. Left adrenal mass measuring 2.5 x 3.3 cm with no significan t uptake. Patient had EBUS performed on December 31, 2023 to right lung lesions with 2 lung nodules sampled both of those pathology consistent with squamous cell carcinoma. Repeat PET scan on January 12, 2024 with adrenal mass negative. 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 T4a N1 M1. ECOG 0. Discussed with patient the cement treatment options based on NCCN guidelines . Considerat ion for first-line immune therapy with Keytruda as likely patient would tolerate well. Hopefully would provide patient with response. Will request P 16 results from [facility]. Discussed additional testing with on peripheral blood tempus testing. Will follow-up for any signs of mutational status. Patient returns on July 21, 2024. Patient will receive cycle 6 of Keytruda today. He is tolerating well. Appetite is improving and he is regaining lost weight. He is not having any odynophagi a or dysphagia. Discussed removing feeding tube if he continues to improve and gain weight. He was scheduled for a PET scan but this had to be reschedule d since he ate the morning of the scan. PET scan is reschedule d for July 31, 2024. Will follow up. Will follow up labs. Metastatic malignant neoplasm to lung [id number] C78.01 PET scan performed on December 22, 2023 with findings of supraglott ic mass as well as hypermetab olism cervical lymph nodes and lung nodules that were hypermetab olic consistent with distant metastatic disease.Pu lmonary nodule in the right upper lobe 1.1 cm in size. Superior segment nodule of the right lower lobe 1.0 cm with SUV of 6.3. Left adrenal mass measuring 2.5 x 3.3 cm with no significan t uptake. Nausea [id number] R11.0 as needed zofran and phenergren called in. Immunological therapy 76 887404 Z51.12 Cycle 1 of Keytruda on April 05, 2024.Cycle 2 of Keytruda on April 27, 2024.Cycle 3 of Keytruda on May 18, 2024.Cycle 4 of Keytruda on June 08, 2024.Cycle 5 of Keytruda on June 29, 2024.Cycle 6 of Keytruda on July 21, 2024. Hypomagnesemia [id number] E83.42 Labs on June 08, 2024 with magnesium low 1.6. Will follow-up labs today Constipation 30556421 K5 9.00 Patient has had some constipati on. Will send prescripti on for MiraLax. Cobalamin deficiency 190 693000 E53.8 History of vitamin B12 deficiency . He is currently receiving monthly vitamin B12. Labs on June 08, 2024 with vitamin B12 normal at 426. Normal folic acid [id number] Siobhan Shannon PA-C [facility] [address] [place] [address] 08/10/2024 08:33:53 08/10/2024 09:31:13 Squamous cell carcinoma of larynx [id number] C32.9 CT scan on November 24, 2023 demonstrat ed a T4a laryngeal mass. Laryngosco py performed on December 08, 2023 with large left supraglott ic larynx mass that biopsy demonstrat ed squamous cell carcinoma. PET scan performed on December 22, 2023 with findings of supraglott ic mass as well as hypermetab olism cervical lymph nodes and lung nodules that were hypermetab olic consistent with distant metastatic disease.Pu lmonary nodule in the right upper lobe 1.1 cm in size. Superior segment nodule of the right lower lobe 1.0 cm with SUV of 6.3. Left adrenal mass measuring 2.5 x 3.3 cm with no significan t uptake. Patient had EBUS performed on December 31, 2023 to right lung lesions with 2 lung nodules sampled both of those pathology consistent with squamous cell carcinoma. Repeat PET scan on January 12, 2024 with adrenal mass negative. 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 T4a N1 M1. ECOG 0. Discussed with patient the cement treatment options based on NCCN guidelines . Considerat ion for first-line immune therapy with Keytruda as likely patient would tolerate well. Hopefully would provide patient with response. Will request P 16 results from [facility]. Discussed additional testing with on peripheral blood tempus testing. Will follow-up for any signs of mutational status. PET scan on July 31, 2024 with interval improvemen t in previously seen left pharyngeal uptake.Per sistent uptake to left pharyngeal tonsil, left lymph node and left parotid gland. Uptake to right suprahilar /perihilar nodule, slightly increased in size up to 1.6 cm. Previously seen right infrahilar nodule has decreased. Multiple pulmonary nodules all of which are below the size threshold for reliable characteri zation by PET. Possibly infectious . Patient with a productive cough. Prescripti on sent for doxycyclin e 100 mg i tab po b.i.d. x 7 days. Will follow-up CT chest in 6-8 weeks after treatment to assess for resolution . Patient returns on August 10 2024. Patient will receive cycle 7 of Keytruda today. He is tolerating well. Appetite is improving and he is regaining lost weight. He is not having any odynophagi a or dysphagia. He would like to have his feeding tube removed soon as he continues to improve and gain weight. He developed a pruritic rash since starting doxycyclin e. He has a rash over his lower extremitie s and a couple areas over the upper extremitie s. He has itching of the abdomen. Discussed starting hydrocorti sone cream. He will finish the doxycyclin e tonight. Discussed discontinu ing doxycyclin e and not taking anymore. Will proceed with Keytruda today. Patient instructed to let me know if rash worsens. Can send prescripti on oral steroids if needed. Will follow up. Will follow up labs. Metastatic malignant neoplasm to lung [id number] C78.01 PET scan performed on December 22, 2023 with findings of supraglott ic mass as well as hypermetab olism cervical lymph nodes and lung nodules that were hypermetab olic consistent with distant metastatic disease.Pu lmonary nodule in the right upper lobe 1.1 cm in size. Superior segment nodule of the right lower lobe 1.0 cm with SUV of 6.3. Left adrenal mass measuring 2.5 x 3.3 cm with no significan t uptake. Nausea [id number] R11.0 as needed zofran and phenergren called in. Immunological therapy 76 924720 Z51.12 Cycle 1 of Keytruda on April 05, 2024.Cycle 2 of Keytruda on April 27, 2024.Cycle 3 of Keytruda on May 18, 2024.Cycle 4 of Keytruda on June 08, 2024.Cycle 5 of Keytruda on June 29, 2024.Cycle 6 of Keytruda on July 21, 2024.Cycle 7 of Keytruda on August 10, 2024. Hypomagnesemia 116057552 E83.42 Labs on June 08, 2024 with magnesium low 1.6. Will follow-up labs today Constipation 79055558 K5 9.00 Patient has had some constipati on. Will send prescripti on for MiraLax. Cobalamin deficiency 190 502826 E53.8 History of vitamin B12 deficiency . He is currently receiving monthly vitamin B12. Labs on June 08, 2024 with vitamin B12 normal at 426. Normal folic acid Pruritic rash 27164164 L 28.2 Patient returns on August 10 2024. Patient developed a pruritic rash since starting doxycyclin e. He has a rash over his lower extremitie s and a couple areas over the upper extremitie s. He has itching of the abdomen. Discussed starting hydrocorti sone cream. He will finish the doxycyclin e tonight. Discussed discontinu ing doxycyclin e and not taking anymore. Will proceed with Keytruda today. Patient instructed to let me know if rash worsens. Can send prescripti on oral steroids if needed. Will follow up. [id number] Evangelist Rees MD [facility] [address] [place] [address] 08/30/2024 08:35:40 08/30/2024 10:02:02 Squamous cell carcinoma of larynx [id number] C32.9 CT scan on November 24, 2023 demonstrat ed a T4a laryngeal mass. Laryngosco py performed on December 08, 2023 with large left supraglott ic larynx mass that biopsy demonstrat ed squamous cell carcinoma. PET scan performed on December 22, 2023 with findings of supraglott ic mass as well as hypermetab olism cervical lymph nodes and lung nodules that were hypermetab olic consistent with distant metastatic disease.Pu lmonary nodule in the right upper lobe 1.1 cm in size. Superior segment nodule of the right lower lobe 1.0 cm with SUV of 6.3. Left adrenal mass measuring 2.5 x 3.3 cm with no significan t uptake. Patient had EBUS performed on December 31, 2023 to right lung lesions with 2 lung nodules sampled both of those pathology consistent with squamous cell carcinoma. Repeat PET scan on January 12, 2024 with adrenal mass negative. 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 T4a N1 M1. ECOG 0. Discussed with patient the cement treatment options based on NCCN guidelines . Considerat ion for first-line immune therapy with Keytruda as likely patient would tolerate well. Hopefully would provide patient with response. Will request P 16 results from [facility]. Discussed additional testing with on peripheral blood tempus testing. Will follow-up for any signs of mutational status. PET scan on July 31, 2024 with interval improvemen t in previously seen left pharyngeal uptake. Persistent uptake to left pharyngeal tonsil, left lymph node and left parotid gland. Uptake to right suprahilar /perihilar nodule, slightly increased in size up to 1.6 cm. Previously seen right infrahilar nodule has decreased. Multiple pulmonary nodules all of which are below the size threshold for reliable characteri zation by PET. Possibly infectious . Patient with a productive cough. Prescripti on sent for doxycyclin e 100 mg i tab po b.i.d. x 7 days. Will follow-up CT chest in 6-8 weeks after treatment to assess for resolution . Patient treated with antibiotic therapy. Patient returns August 30, 2024 for continued dosing of Keytruda. Plan to repeat imaging in September 2024. Will follow-up labs today. Metastatic malignant neoplasm to lung [id number] C78.01 PET scan performed on December 22, 2023 with findings of supraglott ic mass as well as hypermetab olism cervical lymph nodes and lung nodules that were hypermetab olic consistent with distant metastatic disease.Pu lmonary nodule in the right upper lobe 1.1 cm in size. Superior segment nodule of the right lower lobe 1.0 cm with SUV of 6.3. Left adrenal mass measuring 2.5 x 3.3 cm with no significan t uptake. Nausea [id number] R11.0 as needed zofran and phenergren called in. Immunological therapy 76 954709 Z51.12 Cycle 1 of Keytruda on April 05, 2024.Cycle 2 of Keytruda on April 27, 2024.Cycle 3 of Keytruda on May 18, 2024.Cycle 4 of Keytruda on June 08, 2024.Cycle 5 of Keytruda on June 29, 2024.Cycle 6 of Keytruda on July 21, 2024.Cycle 7 of Keytruda on August 10, 2024.Cycle 8 of Keytruda on August 30, 2024. Hypomagnesemia 894839779 E83.42 Labs on June 08, 2024 with magnesium low 1.6. Will follow-up labs today Constipation 33121580 K5 9.00 Patient has had some constipati on. Will send prescripti on for MiraLax. Cobalamin deficiency 190 912345 E53.8 History of vitamin B12 deficiency . He is currently receiving monthly vitamin B12. Labs on June 08, 2024 with vitamin B12 normal at 426. Normal folic acid Gastrostom y tube in situ 755034006 Z93.1 Patient interested in possible removal of PEG tube. Discussed potential PEG button placement and will follow-up nutrition needs. [id number] Evangelist Rees MD [facility] [address] [place] [address] 09/20/2024 08:44:41 09/20/2024 10:32:15 Squamous cell carcinoma of larynx [id number] C32.9 CT scan on November 24, 2023 demonstrat ed a T4a laryngeal mass. Laryngosco py performed on December 08, 2023 with large left supraglott ic larynx mass that biopsy demonstrat ed squamous cell carcinoma. PET scan performed on December 22, 2023 with findings of supraglott ic mass as well as hypermetab olism cervical lymph nodes and lung nodules that were hypermetab olic consistent with distant metastatic disease.Pu lmonary nodule in the right upper lobe 1.1 cm in size. Superior segment nodule of the right lower lobe 1.0 cm with SUV of 6.3. Left adrenal mass measuring 2.5 x 3.3 cm with no significan t uptake. Patient had EBUS performed on December 31, 2023 to right lung lesions with 2 lung nodules sampled both of those pathology consistent with squamous cell carcinoma. Repeat PET scan on January 12, 2024 with adrenal mass negative. 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 T4a N1 M1. ECOG 0. Discussed with patient the cement treatment options based on NCCN guidelines . Considerat ion for first-line immune therapy with Keytruda as likely patient would tolerate well. Hopefully would provide patient with response. Will request P 16 results from [facility]. Discussed additional testing with on peripheral blood tempus testing. Will follow-up for any signs of mutational status. PET scan on July 31, 2024 with interval improvemen t in previously seen left pharyngeal uptake.Per sistent uptake to left pharyngeal tonsil, left lymph node and left parotid gland. Uptake to right suprahilar /perihilar nodule, slightly increased in size up to 1.6 cm. Previously seen right infrahilar nodule has decreased. Multiple pulmonary nodules all of which are below the size threshold for reliable characteri zation by PET. Possibly infectious . Patient with a productive cough. Prescripti on sent for doxycyclin e 100 mg i tab po b.i.d. x 7 days. Will follow-up CT chest in 6-8 weeks after treatment to assess for resolution . CT chest on September 19, 2024 with 3 cm right hilar spiculated mass enlarged compared to prior imaging on pet scan from July 31, 2024. Small micronodul es likely in the right upper lobe could reflect infectious /inflammat ory process.Wo uld continue with keytruda. Prior imaging reviewed and area in the right hilum was around 2 cm previously .Would favor repeat PET scan with next imaging. Discussed potential bronchosco py with pulmonary medicine. Metastatic malignant neoplasm to lung [id number] C78.01 PET scan performed on December 22, 2023 with findings of supraglott ic mass as well as hypermetab olism cervical lymph nodes and lung nodules that were hypermetab olic consistent with distant metastatic disease.Pu lmonary nodule in the right upper lobe 1.1 cm in size. Superior segment nodule of the right lower lobe 1.0 cm with SUV of 6.3. Left adrenal mass measuring 2.5 x 3.3 cm with no significan t uptake. Nausea [id number] R11.0 as needed zofran and phenergren called in. Immunological therapy 76 814511 Z51.12 Cycle 1 of Keytruda on April 05, 2024.Cycle 2 of Keytruda on April 27, 2024.Cycle 3 of Keytruda on May 18, 2024.Cycle 4 of Keytruda on June 08, 2024.Cycle 5 of Keytruda on June 29, 2024.Cycle 6 of Keytruda on July 21, 2024.Cycle 7 of Keytruda on August 10, 2024.Cycle 8 of Keytruda on August 30, 2024.Cycle 9 of Keytruda on September 20, 2024. Hypomagnesemia 563602439 E83.42 Labs on June 08, 2024 with magnesium low 1.6. Will follow-up labs today Constipation 29898276 K5 9.00 Patient has had some constipati on. Will send prescripti on for MiraLax. Cobalamin deficiency 190 648265 E53.8 History of vitamin B12 deficiency . He is currently receiving monthly vitamin B12. Labs on June 08, 2024 with vitamin B12 normal at 426. Normal folic acid Gastrostom y tube in situ [id number] Z93.1 Patient interested in possible removal of PEG tube. Discussed potential PEG button placement and will follow-up nutrition needs. [id number] Evangelist Rees MD [facility] [address] [place] [address] 10/11/2024 08:27:14 10/11/2024 09:12:55 Squamous cell carcinoma of larynx 143425983 C32.9 CT scan on November 24, 2023 demonstrat ed a T4a laryngeal mass. Laryngosco py performed on December 08, 2023 with large left supraglott ic larynx mass that biopsy demonstrat ed squamous cell carcinoma. PET scan performed on December 22, 2023 with findings of supraglott ic mass as well as hypermetab olism cervical lymph nodes and lung nodules that were hypermetab olic consistent with distant metastatic disease.Pu lmonary nodule in the right upper lobe 1.1 cm in size. Superior segment nodule of the right lower lobe 1.0 cm with SUV of 6.3. Left adrenal mass measuring 2.5 x 3.3 cm with no significan t uptake. Patient had EBUS performed on December 31, 2023 to right lung lesions with 2 lung nodules sampled both of those pathology consistent with squamous cell carcinoma. Repeat PET scan on January 12, 2024 with adrenal mass negative. 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 T4a N1 M1. ECOG 0. Discussed with patient the cement treatment options based on NCCN guidelines . Considerat ion for first-line immune therapy with Keytruda as likely patient would tolerate well. Hopefully would provide patient with response. Will request P 16 results from [facility]. Discussed additional testing with on peripheral blood tempus testing. Will follow-up for any signs of mutational status. PET scan on July 31, 2024 with interval improvemen t in previously seen left pharyngeal uptake.Per sistent uptake to left pharyngeal tonsil, left lymph node and left parotid gland. Uptake to right suprahilar /perihilar nodule, slightly increased in size up to 1.6 cm. Previously seen right infrahilar nodule has decreased. Multiple pulmonary nodules all of which are below the size threshold for reliable characteri zation by PET. Possibly infectious . Patient with a productive cough. Prescripti on sent for doxycyclin e 100 mg i tab po b.i.d. x 7 days. Will follow-up CT chest in 6-8 weeks after treatment to assess for resolution . CT chest on September 19, 2024 with 3 cm right hilar spiculated mass enlarged compared to prior imaging on pet scan from July 31, 2024. Small micronodul es likely in the right upper lobe could reflect infectious /inflammat ory process.Wo uld continue with keytruda. Prior imaging reviewed and area in the right hilum was around 2 cm previously . Patient returns October 11, 2024 for continued dosing of Keytruda. No acute changes since last visit. Will plan to repeat imaging in early November 2023. Metastatic malignant neoplasm to lung [id number] C78.01 PET scan performed on December 22, 2023 with findings of supraglott ic mass as well as hypermetab olism cervical lymph nodes and lung nodules that were hypermetab olic consistent with distant metastatic disease.Pu lmonary nodule in the right upper lobe 1.1 cm in size. Superior segment nodule of the right lower lobe 1.0 cm with SUV of 6.3. Left adrenal mass measuring 2.5 x 3.3 cm with no significan t uptake. Nausea [id number] R11.0 as needed zofran and phenergren called in. Immunological therapy 76 187357 Z51.12 Cycle 1 of Keytruda on April 05, 2024.Cycle 2 of Keytruda on April 27, 2024.Cycle 3 of Keytruda on May 18, 2024.Cycle 4 of Keytruda on June 08, 2024.Cycle 5 of Keytruda on June 29, 2024.Cycle 6 of Keytruda on July 21, 2024.Cycle 7 of Keytruda on August 10, 2024.Cycle 8 of Keytruda on August 30, 2024.Cycle 9 of Keytruda on September 20, 2024.Cycle 10 of Keytruda on October 11, 2024. Hypomagnesemia [id number] E83.42 Labs on June 08, 2024 with magnesium low 1.6. Will follow-up labs today Constipation 07058249 K5 9.00 Patient has had some constipati on. Will send prescripti on for MiraLax. Cobalamin deficiency 190 456888 E53.8 History of vitamin B12 deficiency . He is currently receiving monthly vitamin B12. Labs on June 08, 2024 with vitamin B12 normal at 426. Normal folic acid Gastrostom y tube in situ [id number] Z93.1 Patient interested in possible removal of PEG tube. Discussed potential PEG button placement and will follow-up nutrition needs. [id number] Siobhan Shannon PA-C [facility] [address] [place] [address] 11/02/2024 09:32:09 11/02/2024 09:52:54 Squamous cell carcinoma of larynx [id number] C32.9 CT scan on November 24, 2023 demonstrat ed a T4a laryngeal mass. Laryngosco py performed on December 08, 2023 with large left supraglott ic larynx mass that biopsy demonstrat ed squamous cell carcinoma. PET scan performed on December 22, 2023 with findings of supraglott ic mass as well as hypermetab olism cervical lymph nodes and lung nodules that were hypermetab olic consistent with distant metastatic disease.Pu lmonary nodule in the right upper lobe 1.1 cm in size. Superior segment nodule of the right lower lobe 1.0 cm with SUV of 6.3. Left adrenal mass measuring 2.5 x 3.3 cm with no significan t uptake. Patient had EBUS performed on December 31, 2023 to right lung lesions with 2 lung nodules sampled both of those pathology consistent with squamous cell carcinoma. Repeat PET scan on January 12, 2024 with adrenal mass negative. 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 T4a N1 M1. ECOG 0. Discussed with patient the cement treatment options based on NCCN guidelines . Considerat ion for first-line immune therapy with Keytruda as likely patient would tolerate well. Hopefully would provide patient with response. Will request P 16 results from [facility]. Discussed additional testing with on peripheral blood tempus testing. Will follow-up for any signs of mutational status. PET scan on July 31, 2024 with interval improvemen t in previously seen left pharyngeal uptake.Per sistent uptake to left pharyngeal tonsil, left lymph node and left parotid gland. Uptake to right suprahilar /perihilar nodule, slightly increased in size up to 1.6 cm. Previously seen right infrahilar nodule has decreased. Multiple pulmonary nodules all of which are below the size threshold for reliable characteri zation by PET. Possibly infectious . Patient with a productive cough. Prescripti on sent for doxycyclin e 100 mg i tab po b.i.d. x 7 days. Will follow-up CT chest in 6-8 weeks after treatment to assess for resolution . CT chest on September 19, 2024 with 3 cm right hilar spiculated mass enlarged compared to prior imaging on pet scan from July 31, 2024. Small micronodul es likely in the right upper lobe could reflect infectious /inflammat ory process.Wo uld continue with keytruda. Prior imaging reviewed and area in the right hilum was around 2 cm previously . Patient returns November 02, 2024 for continued dosing of Keytruda. No acute changes since last visit. Patient is due for repeat imaging. Will schedule. Patient is requesting to have his feeding tube removed as he is eating without trouble and has not used his feeding tube in at least 2 months. He is regaining lost weight. Will refer for feeding tube removal. Metastatic malignant neoplasm to lung [id number] C78.01 PET scan performed on December 22, 2023 with findings of supraglott ic mass as well as hypermetab olism cervical lymph nodes and lung nodules that were hypermetab olic consistent with distant metastatic disease.Pu lmonary nodule in the right upper lobe 1.1 cm in size. Superior segment nodule of the right lower lobe 1.0 cm with SUV of 6.3. Left adrenal mass measuring 2.5 x 3.3 cm with no significan t uptake. Nausea [id number] R11.0 as needed zofran and phenergren called in. Immunological therapy 76 372948 Z51.12 Cycle 1 of Keytruda on April 05, 2024.Cycle 2 of Keytruda on April 27, 2024.Cycle 3 of Keytruda on May 18, 2024.Cycle 4 of Keytruda on June 08, 2024.Cycle 5 of Keytruda on June 29, 2024.Cycle 6 of Keytruda on July 21, 2024.Cycle 7 of Keytruda on August 10, 2024.Cycle 8 of Keytruda on August 30, 2024.Cycle 9 of Keytruda on September 20, 2024.Cycle 10 of Keytruda on October 11, 2024.Cycle 11 of Keytruda on November 02, 2024. Hypomagnesemia 106188542 E83.42 Labs on June 08, 2024 with magnesium low 1.6. Will follow-up labs today Constipation 35336366 K5 9.00 Patient has had some constipati on. Will send prescripti on for MiraLax. Cobalamin deficiency 190 188475 E53.8 History of vitamin B12 deficiency . He is currently receiving monthly vitamin B12. Labs on June 08, 2024 with vitamin B12 normal at 426. Normal folic acid Gastrostom y tube in situ 103726126 Z93.1 Patient interested in possible removal of PEG tube. Discussed potential PEG button placement and will follow-up nutrition needs. [id number] Siobhan Shannon PA-C [facility] [address] [place] [address] 11/23/2024 08:39:33 11/23/2024 08:40:07 Squamous cell carcinoma of larynx [id number] C32.9 CT scan on November 24, 2023 demonstrat ed a T4a laryngeal mass. Laryngosco py performed on December 08, 2023 with large left supraglott ic larynx mass that biopsy demonstrat ed squamous cell carcinoma. PET scan performed on December 22, 2023 with findings of supraglott ic mass as well as hypermetab olism cervical lymph nodes and lung nodules that were hypermetab olic consistent with distant metastatic disease.Pu lmonary nodule in the right upper lobe 1.1 cm in size. Superior segment nodule of the right lower lobe 1.0 cm with SUV of 6.3. Left adrenal mass measuring 2.5 x 3.3 cm with no significan t uptake. Patient had EBUS performed on December 31, 2023 to right lung lesions with 2 lung nodules sampled both of those pathology consistent with squamous cell carcinoma. Repeat PET scan on January 12, 2024 with adrenal mass negative. 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 T4a N1 M1. ECOG 0. Discussed with patient the cement treatment options based on NCCN guidelines . Considerat ion for first-line immune therapy with Keytruda as likely patient would tolerate well. Hopefully would provide patient with response. Will request P 16 results from [facility]. Discussed additional testing with on peripheral blood tempus testing. Will follow-up for any signs of mutational status. PET scan on July 31, 2024 with interval improvemen t in previously seen left pharyngeal uptake.Per sistent uptake to left pharyngeal tonsil, left lymph node and left parotid gland. Uptake to right suprahilar /perihilar nodule, slightly increased in size up to 1.6 cm. Previously seen right infrahilar nodule has decreased. Multiple pulmonary nodules all of which are below the size threshold for reliable characteri zation by PET. Possibly infectious . Patient with a productive cough. Prescripti on sent for doxycyclin e 100 mg i tab po b.i.d. x 7 days. Will follow-up CT chest in 6-8 weeks after treatment to assess for resolution . CT chest on September 19, 2024 with 3 cm right hilar spiculated mass enlarged compared to prior imaging on pet scan from July 31, 2024. Small micronodul es likely in the right upper lobe could reflect infectious /inflammat ory process.Wo uld continue with keytruda. Prior imaging reviewed and area in the right hilum was around 2 cm previously . Patient returns November 23, 2024 for continued dosing of Keytruda. He does have dry pruritic skin. No rash. Discussed using moisturize r with Aquaphor and Aveeno body wash. Will follow-up. CT scan of the neck and chest November 22, 2024 with stable findings. No change in lymph node size. Subcarinal lymph nodes stable. Recommend continued therapy with Keytruda. No new areas of disease. No evidence of disease progressio n. He is scheduled to have his feeding tube removed as he is eating without trouble and has not used his feeding tube in at least 2-3 months. He is regaining lost weight. Will follow up. Metastatic malignant neoplasm to lung [id number] C78.01 PET scan performed on December 22, 2023 with findings of supraglott ic mass as well as hypermetab olism cervical lymph nodes and lung nodules that were hypermetab olic consistent with distant metastatic disease.Pu lmonary nodule in the right upper lobe 1.1 cm in size. Superior segment nodule of the right lower lobe 1.0 cm with SUV of 6.3. Left adrenal mass measuring 2.5 x 3.3 cm with no significan t uptake. Nausea [id number] R11.0 He has needed zofran and phenergren prescribed . Immunological therapy 76 665374 Z51.12 Cycle 1 of Keytruda on April 05, 2024.Cycle 2 of Keytruda on April 27, 2024.Cycle 3 of Keytruda on May 18, 2024.Cycle 4 of Keytruda on June 08, 2024.Cycle 5 of Keytruda on June 29, 2024.Cycle 6 of Keytruda on July 21, 2024.Cycle 7 of Keytruda on August 10, 2024.Cycle 8 of Keytruda on August 30, 2024.Cycle 9 of Keytruda on September 20, 2024.Cycle 10 of Keytruda on October 11, 2024.Cycle 11 of Keytruda on November 02, 2024.Cycle 12 of Keytruda on November 22, 2024. Hypomagnesemia [id number] E83.42 Labs on June 08, 2024 with magnesium low 1.6. Will follow-up labs today Constipation 74862407 K5 9.00 Patient has had some constipati on. Prescripti on sent for MiraLax. Cobalamin deficiency 190 127022 E53.8 History of vitamin B12 deficiency . He is currently receiving monthly vitamin B12. Labs on June 08, 2024 with vitamin B12 normal at 426. Normal folic acid Gastrostom y tube in situ 251572433 Z93.1 Patient interested in possible removal of PEG tube. Discussed potential PEG button placement and will follow-up nutrition needs. He is scheduled to have his feeding tube removed as he is eating without trouble and has not used his feeding tube in at least 2-3 months. Severe dry skin 44428322 2 L85.3 Patient returns November 23, 2024. He does have dry pruritic skin. No rash. Discussed using moisturize r with Aquaphor and Aveeno body wash. Will follow-up. [id number] Siobhan Shannon PA-C [facility] [address] [place] [address] 12/14/2024 08:16:04 12/14/2024 09:03:13 Squamous cell carcinoma of larynx 150082316 C32.9 CT scan on November 24, 2023 demonstrat ed a T4a laryngeal mass. Laryngosco py performed on December 08, 2023 with large left supraglott ic larynx mass that biopsy demonstrat ed squamous cell carcinoma. PET scan performed on December 22, 2023 with findings of supraglott ic mass as well as hypermetab olism cervical lymph nodes and lung nodules that were hypermetab olic consistent with distant metastatic disease.Pu lmonary nodule in the right upper lobe 1.1 cm in size. Superior segment nodule of the right lower lobe 1.0 cm with SUV of 6.3. Left adrenal mass measuring 2.5 x 3.3 cm with no significan t uptake. Patient had EBUS performed on December 31, 2023 to right lung lesions with 2 lung nodules sampled both of those pathology consistent with squamous cell carcinoma. Repeat PET scan on January 12, 2024 with adrenal mass negative. 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 T4a N1 M1. ECOG 0. Discussed with patient the cement treatment options based on NCCN guidelines . Considerat ion for first-line immune therapy with Keytruda as likely patient would tolerate well. Hopefully would provide patient with response. Will request P 16 results from [facility]. Discussed additional testing with on peripheral blood tempus testing. Will follow-up for any signs of mutational status. PET scan on July 31, 2024 with interval improvemen t in previously seen left pharyngeal uptake.Per sistent uptake to left pharyngeal tonsil, left lymph node and left parotid gland. Uptake to right suprahilar /perihilar nodule, slightly increased in size up to 1.6 cm. Previously seen right infrahilar nodule has decreased. Multiple pulmonary nodules all of which are below the size threshold for reliable characteri zation by PET. Possibly infectious . Patient with a productive cough. Prescripti on sent for doxycyclin e 100 mg i tab po b.i.d. x 7 days. Will follow-up CT chest in 6-8 weeks after treatment to assess for resolution . CT chest on September 19, 2024 with 3 cm right hilar spiculated mass enlarged compared to prior imaging on pet scan from July 31, 2024. Small micronodul es likely in the right upper lobe could reflect infectious /inflammat ory process.Wo uld continue with keytruda. Prior imaging reviewed and area in the right hilum was around [address] scan of the neck and chest November 22, 2024 with stable findings. No change in lymph node size. Subcarinal lymph nodes stable. Recommend continued therapy with Keytruda. No new areas of disease. No evidence of disease progressio n. Metastatic malignant neoplasm to lung 16621115 C78.01 PET scan performed on December 22, 2023 with findings of supraglott ic mass as well as hypermetab olism cervical lymph nodes and lung nodules that were hypermetab olic consistent with distant metastatic disease.Pu lmonary nodule in the right upper lobe 1.1 cm in size. Superior segment nodule of the right lower lobe 1.0 cm with SUV of 6.3. Left adrenal mass measuring 2.5 x 3.3 cm with no significan t uptake. Immunological therapy 76 223746 Z51.12 Cycle 1 of Keytruda on April 05, 2024.Cycle 2 of Keytruda on April 27, 2024.Cycle 3 of Keytruda on May 18, 2024.Cycle 4 of Keytruda on June 08, 2024.Cycle 5 of Keytruda on June 29, 2024.Cycle 6 of Keytruda on July 21, 2024.Cycle 7 of Keytruda on August 10, 2024.Cycle 8 of Keytruda on August 30, 2024.Cycle 9 of Keytruda on September 20, 2024.Cycle 10 of Keytruda on October 11, 2024.Cycle 11 of Keytruda on November 02, 2024.Cycle 12 of Keytruda on November 22, 2024.Cycle 13 held on Keytruda on December 14, 2024 due to elevated liver enzymes. Hypomagnesemia [id number] E83.42 Labs on June 08, 2024 with magnesium low 1.6. Will follow-up labs today Constipation 16829501 K5 9.00 Patient has had some constipati on. Prescripti on sent for MiraLax. Cobalamin deficiency 190 246331 E53.8 History of vitamin B12 deficiency . He is currently receiving monthly vitamin B12. Labs on June 08, 2024 with vitamin B12 normal at 426. Normal folic acid Gastrostom y tube in situ 023806409 Z93.1 Patient interested in possible removal of PEG tube. Discussed potential PEG button placement and will follow-up nutrition needs. He is scheduled to have his feeding tube removed as he is eating without trouble and has not used his feeding tube in at least 2-3 months. Severe dry skin 26275632 2 L85.3 Patient returns November 23, 2024. He does have dry pruritic skin. No rash. Discussed using moisturize r with Aquaphor and Aveeno body wash. Will follow-up. Patient returns December 14, 2024. He is using moisturize r with Aquaphor and Aveeno body wash with improvemen t of dry skin. Nausea and vomiting 1693 1999 R11.2 Patient returns December 14, 2024 for continued dosing of Keytruda. He had his feeding tube since previous visit. He continues to regain lost weight. Patient states he has had vomiting for the past 3 days after eating large meals. He has ate brown beans and spaghetti along with ham and eggs over the past 3 days and had vomiting after both of these meals. Discussed eating more bland foods for the next few days. He has not taken anything for nausea. He has taken Zofran in the past. Will send prescripti on for Zofran. Discussed taking this about 30 minutes before he eats. Discussed possibly viral but patient otherwise does not feel bad. Denies any fatigue, fever, or chills. No one else in the household has been sick. Patient will let me know if the vomiting continues or if he notices any additional symptoms. Will follow up. Liver enzy mes level above reference range 234043312 R74.01 Patient returns December 14, 2024. He had his feeding tube since previous visit. He continues to regain lost weight. Patient states he has had vomiting for the past 3 days after eating meals. He has ate brown beans and spaghetti along with ham and eggs over the past 3 days and had vomiting after both of these meals. Discussed eating more bland foods for the next few days. He has not taken anything for nausea. He has taken Zofran in the past. Will send prescripti on for Zofran. Discussed taking this about 30 minutes before he eats. Discussed possibly viral but patient otherwise does not feel bad. Denies any fatigue, fever, or chills. No one else in the household has been sick. Patient will let me know if the vomiting continues or if he notices any additional symptoms. Labs today with elevated liver enzymes. AST 209 and ALT 389. Alkaline phosphatas e 51. Normal bilirubin. Will order hepatitis panel. Will also order ultrasound of abdomen for further evaluation . Will hold Keytruda today. Will follow up. Patient instructed to go to ED if symptoms worsen. Will up again next week and hopefully resume Keytruda at that time. [id number] Siobhan Shannon PA-C [facility] [address] [place] [address] 12/21/2024 08:19:27 12/21/2024 09:11:07 Squamous cell carcinoma of larynx [id number] C32.9 CT scan on November 24, 2023 demonstrat ed a T4a laryngeal mass. Laryngosco py performed on December 08, 2023 with large left supraglott ic larynx mass that biopsy demonstrat ed squamous cell carcinoma. PET scan performed on December 22, 2023 with findings of supraglott ic mass as well as hypermetab olism cervical lymph nodes and lung nodules that were hypermetab olic consistent with distant metastatic disease.Pu lmonary nodule in the right upper lobe 1.1 cm in size. Superior segment nodule of the right lower lobe 1.0 cm with SUV of 6.3. Left adrenal mass measuring 2.5 x 3.3 cm with no significan t uptake. Patient had EBUS performed on December 31, 2023 to right lung lesions with 2 lung nodules sampled both of those pathology consistent with squamous cell carcinoma. Repeat PET scan on January 12, 2024 with adrenal mass negative. 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 T4a N1 M1. ECOG 0. Discussed with patient the cement treatment options based on NCCN guidelines . Considerat ion for first-line immune therapy with Keytruda as likely patient would tolerate well. Hopefully would provide patient with response. Will request P 16 results from [facility]. Discussed additional testing with on peripheral blood tempus testing. Will follow-up for any signs of mutational status. PET scan on July 31, 2024 with interval improvemen t in previously seen left pharyngeal uptake.Per sistent uptake to left pharyngeal tonsil, left lymph node and left parotid gland. Uptake to right suprahilar /perihilar nodule, slightly increased in size up to 1.6 cm. Previously seen right infrahilar nodule has decreased. Multiple pulmonary nodules all of which are below the size threshold for reliable characteri zation by PET. Possibly infectious . Patient with a productive cough. Prescripti on sent for doxycyclin e 100 mg i tab po b.i.d. x 7 days. Will follow-up CT chest in 6-8 weeks after treatment to assess for resolution . CT chest on September 19, 2024 with 3 cm right hilar spiculated mass enlarged compared to prior imaging on pet scan from July 31, 2024. Small micronodul es likely in the right upper lobe could reflect infectious /inflammat ory process.Wo uld continue with keytruda. Prior imaging reviewed and area in the right hilum was around [address] scan of the neck and chest November 22, 2024 with stable findings. No change in lymph node size. Subcarinal lymph nodes stable. Recommend continued therapy with Keytruda. No new areas of disease. No evidence of disease progressio n. Metastatic malignant neoplasm to lung [id number] C78.01 PET scan performed on December 22, 2023 with findings of supraglott ic mass as well as hypermetab olism cervical lymph nodes and lung nodules that were hypermetab olic consistent with distant metastatic disease.Pu lmonary nodule in the right upper lobe 1.1 cm in size. Superior segment nodule of the right lower lobe 1.0 cm with SUV of 6.3. Left adrenal mass measuring 2.5 x 3.3 cm with no significan t uptake. Immunological therapy 76 444079 Z51.12 Cycle 1 of Keytruda on April 05, 2024.Cycle 2 of Keytruda on April 27, 2024.Cycle 3 of Keytruda on May 18, 2024.Cycle 4 of Keytruda on June 08, 2024.Cycle 5 of Keytruda on June 29, 2024.Cycle 6 of Keytruda on July 21, 2024.Cycle 7 of Keytruda on August 10, 2024.Cycle 8 of Keytruda on August 30, 2024.Cycle 9 of Keytruda on September 20, 2024.Cycle 10 of Keytruda on October 11, 2024.Cycle 11 of Keytruda on November 02, 2024.Cycle 12 of Keytruda on November 22, 2024.Cycle 13 held on Keytruda on December 14, 2024 due to elevated liver enzymes.Cy alexander 14 held on Keytruda on December 21, 2024. Hypomagnesemia [id number] E83.42 Labs on June 08, 2024 with magnesium low 1.6. Will follow-up labs today Constipation 39266076 K5 9.00 Patient returns December 21, 2024. Patient has no longer having any nausea or vomiting. He has a good appetite and is eating well. He states he has not had a bowel movement in 6 days. He drank half a bottle of magnesium citrate yesterday without relief. His abdomen is crampy and feels bloated due to constipati on but no sharp pains. He is passing flatulence . Will order abdominal x-ray to check for any obstructio n. Will send prescripti on for Marleen. Cobalamin deficiency 190 [id number] E53.8 History of vitamin B12 deficiency . He is currently receiving monthly vitamin B12. Labs on June 08, 2024 with vitamin B12 normal at 426. Normal folic acid Gastrostom y tube in situ [id number] Z93.1 Patient interested in possible removal of PEG tube. Discussed potential PEG button placement and will follow-up nutrition needs. He is scheduled to have his feeding tube removed as he is eating without trouble and has not used his feeding tube in at least 2-3 months. Severe dry skin [id number] 2 L85.3 Patient returns November 23, 2024. He does have dry pruritic skin. No rash. Discussed using moisturize r with Aquaphor and Aveeno body wash. Will follow-up. Patient returns December 14, 2024. He is using moisturize r with Aquaphor and Aveeno body wash with improvemen t of dry skin. Nausea and vomiting 1693 2000 R11.2 Patient returns December 14, 2024 for continued dosing of Keytruda. He had his feeding tube since previous visit. He continues to regain lost weight. Patient states he has had vomiting for the past 3 days after eating large meals. He has ate brown beans and spaghetti along with ham and eggs over the past 3 days and had vomiting after both of these meals. Discussed eating more bland foods for the next few days. He has not taken anything for nausea. He has taken Zofran in the past. Will send prescripti on for Zofran. Discussed taking this about 30 minutes before he eats. Discussed possibly viral but patient otherwise does not feel bad. Denies any fatigue, fever, or chills. No one else in the household has been sick. Patient will let me know if the vomiting continues or if he notices any additional symptoms. Will follow up. Patient returns December 21, 2024. Patient has no longer having any nausea or vomiting. He has a good appetite and is eating well. Liver enzy mes level above reference range [id number] R74.01 Labs December 14, 2024 with elevated liver enzymes. AST 209 and ALT 389. Alkaline phosphatas e 51. Normal bilirubin. Negative hepatitis panel. Negative ultrasound of abdomen on December 15, 2024. Keytruda held at that time due to elevated liver enzymes. Patient returns December 21, 2024. Labs today with improved liver enzymes. AST 15 and ALT 59. Alkaline phosphatas e 184. Will proceed with Keytruda today.Pote ntially previous irritation of the liver due to Keytruda. Liver enzymes have returned to normal. Will proceed with Keytruda today. Will continue to monitor labs. [id number] Siobhan Shannon PA-C [facility] [address] [place] [address] 01/11/2025 09:03:46 01/11/2025 09:28:31 Squamous cell carcinoma of larynx [id number] C32.9 CT scan on November 24, 2023 demonstrat ed a T4a laryngeal mass. Laryngosco py performed on December 08, 2023 with large left supraglott ic larynx mass that biopsy demonstrat ed squamous cell carcinoma. PET scan performed on December 22, 2023 with findings of supraglott ic mass as well as hypermetab olism cervical lymph nodes and lung nodules that were hypermetab olic consistent with distant metastatic disease.Pu lmonary nodule in the right upper lobe 1.1 cm in size. Superior segment nodule of the right lower lobe 1.0 cm with SUV of 6.3. Left adrenal mass measuring 2.5 x 3.3 cm with no significan t uptake. Patient had EBUS performed on December 31, 2023 to right lung lesions with 2 lung nodules sampled both of those pathology consistent with squamous cell carcinoma. Repeat PET scan on January 12, 2024 with adrenal mass negative. 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 T4a N1 M1. ECOG 0. Discussed with patient the cement treatment options based on NCCN guidelines . Considerat ion for first-line immune therapy with Keytruda as likely patient would tolerate well. Hopefully would provide patient with response. Will request P 16 results from [facility]. Discussed additional testing with on peripheral blood tempus testing. Will follow-up for any signs of mutational status. PET scan on July 31, 2024 with interval improvemen t in previously seen left pharyngeal uptake.Per sistent uptake to left pharyngeal tonsil, left lymph node and left parotid gland. Uptake to right suprahilar /perihilar nodule, slightly increased in size up to 1.6 cm. Previously seen right infrahilar nodule has decreased. Multiple pulmonary nodules all of which are below the size threshold for reliable characteri zation by PET. Possibly infectious . Patient with a productive cough. Prescripti on sent for doxycyclin e 100 mg i tab po b.i.d. x 7 days. Will follow-up CT chest in 6-8 weeks after treatment to assess for resolution . CT chest on September 19, 2024 with 3 cm right hilar spiculated mass enlarged compared to prior imaging on pet scan from July 31, 2024. Small micronodul es likely in the right upper lobe could reflect infectious /inflammat ory process.Wo uld continue with keytruda. Prior imaging reviewed and area in the right hilum was around [address] scan of the neck and chest November 22, 2024 with stable findings. No change in lymph node size. Subcarinal lymph nodes stable. Recommend continued therapy with Keytruda. No new areas of disease. No evidence of disease progressio n. Patient returns January 11, 2025 for continued dosing of Keytruda. Will continue to monitor labs for toxicity. Will review CBC and CMP prior to Keytruda today. Patient states [facility] visit due to urinary retention. He was diagnosed with BPH and started on Flomax. He is not longer experienci ng urinary retention. He states while he was in the ED he had imaging performed and has a large right inguinal hernia. He had to see cardiology to have cardiac clearance before having the hernia repaired. He has a blockage and needs to have a stent placed. He has been started on Eliquis for atrial fibrillati on. Will request records from [facility] to review. Metastatic malignant neoplasm to lung [id number] C78.01 PET scan performed on December 22, 2023 with findings of supraglott ic mass as well as hypermetab olism cervical lymph nodes and lung nodules that were hypermetab olic consistent with distant metastatic disease.Pu lmonary nodule in the right upper lobe 1.1 cm in size. Superior segment nodule of the right lower lobe 1.0 cm with SUV of 6.3. Left adrenal mass measuring 2.5 x 3.3 cm with no significan t uptake. Immunological therapy 76 [id number] Z51.12 Cycle 1 of Keytruda on April 05, 2024.Cycle 2 of Keytruda on April 27, 2024.Cycle 3 of Keytruda on May 18, 2024.Cycle 4 of Keytruda on June 08, 2024.Cycle 5 of Keytruda on June 29, 2024.Cycle 6 of Keytruda on July 21, 2024.Cycle 7 of Keytruda on August 10, 2024.Cycle 8 of Keytruda on August 30, 2024.Cycle 9 of Keytruda on September 20, 2024.Cycle 10 of Keytruda on October 11, 2024.Cycle 11 of Keytruda on November 02, 2024.Cycle 12 of Keytruda on November 22, 2024.Cycle 13 held on Keytruda on December 14, 2024 due to elevated liver enzymes.Cy alexander 14 on Keytruda on December 21, 2024.Cycle 15 on Keytruda on January 11, 2025. Will review CBC and CMP prior to Keytruda today to monitor for toxicity. Hypomagnesemia [id number] E83.42 Currently taking daily magnesium. Will follow-up labs today Constipation [id number] K5 9.00 Patient has had constipati on is taking MiraLax and bowel movements have improved a little with this. Prescripti on sent for Linzess and he is planning to pick this up from pharmacy today. Cobalamin deficiency 190 511591 E53.8 History of vitamin B12 deficiency . He is currently receiving monthly vitamin B12. Labs on June 08, 2024 with vitamin B12 normal at 426. Normal folic acid. Will follow up labs today. Severe dry skin 34488125 2 L85.3 Patient with dry pruritic skin. No rash. Discussed using moisturize r with Aquaphor and Aveeno body wash. He is using moisturize r with Aquaphor and Aveeno body wash with improvemen t of dry skin. Nausea and vomiting 1693 1999 R11.2 Prescribed Zofran as needed. [id number] Siobhan Shannon PA-C [facility] [address] [place] [address] 02/01/2025 08:35:14 02/01/2025 09:24:21 Immunological therapy [id number] Z51.12 Cycle 1 of Keytruda on April 05, 2024.Cycle 2 of Keytruda on April 27, 2024.Cycle 3 of Keytruda on May 18, 2024.Cycle 4 of Keytruda on June 08, 2024.Cycle 5 of Keytruda on June 29, 2024.Cycle 6 of Keytruda on July 21, 2024.Cycle 7 of Keytruda on August 10, 2024.Cycle 8 of Keytruda on August 30, 2024.Cycle 9 of Keytruda on September 20, 2024.Cycle 10 of Keytruda on October 11, 2024.Cycle 11 of Keytruda on November 02, 2024.Cycle 12 of Keytruda on November 22, 2024.Cycle 13 held on Keytruda on December 14, 2024 due to elevated liver enzymes.Cy alexander 14 on Keytruda on December 21, 2024.Cycle 15 on Keytruda on January 11, 2025.Cycle 16 on Keytruda on February 01, 2025. Will review CBC and CMP prior to Keytruda today to monitor for toxicity. Squamous c ell carcinoma of larynx [id number] C32.9 CT scan on November 24, 2023 demonstrat ed a T4a laryngeal mass. Laryngosco py performed on December 08, 2023 with large left supraglott ic larynx mass that biopsy demonstrat ed squamous cell carcinoma. PET scan performed on December 22, 2023 with findings of supraglott ic mass as well as hypermetab olism cervical lymph nodes and lung nodules that were hypermetab olic consistent with distant metastatic disease.Pu lmonary nodule in the right upper lobe 1.1 cm in size. Superior segment nodule of the right lower lobe 1.0 cm with SUV of 6.3. Left adrenal mass measuring 2.5 x 3.3 cm with no significan t uptake. Patient had EBUS performed on December 31, 2023 to right lung lesions with 2 lung nodules sampled both of those pathology consistent with squamous cell carcinoma. Repeat PET scan on January 12, 2024 with adrenal mass negative. 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 T4a N1 M1. ECOG 0. Discussed with patient the cement treatment options based on NCCN guidelines . Considerat ion for first-line immune therapy with Keytruda as likely patient would tolerate well. Hopefully would provide patient with response. Will request P 16 results from [facility]. Discussed additional testing with on peripheral blood tempus testing. Will follow-up for any signs of mutational status. PET scan on July 31, 2024 with interval improvemen t in previously seen left pharyngeal uptake.Per sistent uptake to left pharyngeal tonsil, left lymph node and left parotid gland. Uptake to right suprahilar /perihilar nodule, slightly increased in size up to 1.6 cm. Previously seen right infrahilar nodule has decreased. Multiple pulmonary nodules all of which are below the size threshold for reliable characteri zation by PET. Possibly infectious . Patient with a productive cough. Prescripti on sent for doxycyclin e 100 mg i tab po b.i.d. x 7 days. Will follow-up CT chest in 6-8 weeks after treatment to assess for resolution . CT chest on September 19, 2024 with 3 cm right hilar spiculated mass enlarged compared to prior imaging on pet scan from July 31, 2024. Small micronodul es likely in the right upper lobe could reflect infectious /inflammat ory process.Wo uld continue with keytruda. Prior imaging reviewed and area in the right hilum was around [address] scan of the neck and chest November 22, 2024 with stable findings. No change in lymph node size. Subcarinal lymph nodes stable. Recommend continued therapy with Keytruda. No new areas of disease. No evidence of disease progressio n. Patient returns February 01, 2025 for continued dosing of Keytruda. He has noticed an enlarged cervical lymph node bilaterall y. No tenderness . Will continue to monitor. He will be due for follow-up imaging around March 2025. Will schedule CT neck chest abdomen and pelvis at that time. Metastatic malignant neoplasm to lung [id number] C78.01 PET scan performed on December 22, 2023 with findings of supraglott ic mass as well as hypermetab olism cervical lymph nodes and lung nodules that were hypermetab olic consistent with distant metastatic disease.Pu lmonary nodule in the right upper lobe 1.1 cm in size. Superior segment nodule of the right lower lobe 1.0 cm with SUV of 6.3. Left adrenal mass measuring 2.5 x 3.3 cm with no significan t uptake. Hypomagnesemia [id number] E83.42 Currently taking daily magnesium. Will follow-up labs today Constipation 79790628 K5 9.00 Patient has had constipati on is taking MiraLax and bowel movements have improved a little with this. Prescripti on sent for Marleen. Cobalamin deficiency 190 554291 E53.8 History of vitamin B12 deficiency . He is currently receiving monthly vitamin B12. Labs on June 08, 2024 with vitamin B12 normal at 426. Normal folic acid. Will follow up labs today. Severe dry skin 32395252 2 L85.3 Patient with dry pruritic skin. No rash. Discussed using moisturize r with Aquaphor and Aveeno body wash. He is using moisturize r with Aquaphor and Aveeno body wash with improvemen t of dry skin. Nausea and vomiting 1692 1999 R11.2 Prescribed Zofran as needed. 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 Patient having some intermitte nt obstructiv e and urinary symptoms that may be related to the large size of the hernia. We did discuss repair, usually open, given the large size and chronicity . Time spent in reviewing extensive past history, discussion of surgical issues with patient and family and patient discussion with referral physician was 92 minutes. 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 T4a N1 M1. ECOG 0. PET scan performed on December 22, 2023 with findings of supraglott ic mass as well as hypermetab olism cervical lymph nodes and lung nodules that were hypermetab olic consistent with distant metastatic disease.Pu lmonary nodule in the right upper lobe 1.1 cm in size. Superior segment nodule of the right lower lobe 1.0 cm with SUV of 6.3. Left adrenal mass measuring 2.5 x 3.3 cm with no significan t uptake. Has cervical and lung metastasis , stable on PET, patient with good functional status, on Keytruda. He has impairment from the hernia, overall good functional status, is appropriat e candidate for surgical interventi on. Given the supraglott ic tumor, referral to tertiary care center, better able to handle potential ENT problems related to intubation is reasonable . I have discussed the patient with Dr. Darell Segura, who will see him as an outpatient to discuss surgical options. Metastatic malignant neoplasm to lung 01948318 C78.01 [id number] Siobhan Shannon PA-C [facility] [address] [place] [address] 02/22/2025 08:09:06 02/22/2025 08:44:34 Immunological therapy 00892139 Z51.12 Cycle 1 of Keytruda on April 05, 2024.Cycle 2 of Keytruda on April 27, 2024.Cycle 3 of Keytruda on May 18, 2024.Cycle 4 of Keytruda on June 08, 2024.Cycle 5 of Keytruda on June 29, 2024.Cycle 6 of Keytruda on July 21, 2024.Cycle 7 of Keytruda on August 10, 2024.Cycle 8 of Keytruda on August 30, 2024.Cycle 9 of Keytruda on September 20, 2024.Cycle 10 of Keytruda on October 11, 2024.Cycle 11 of Keytruda on November 02, 2024.Cycle 12 of Keytruda on November 22, 2024.Cycle 13 held on Keytruda on December 14, 2024 due to elevated liver enzymes.Cy alexander 14 on Keytruda on December 21, 2024.Cycle 15 on Keytruda on January 11, 2025.Cycle 16 on Keytruda on February 01, 2025.Cycle 17 on Keytruda on February 22, 2025. Will review CBC CMP and TSH prior to Keytruda today to monitor for toxicity. Squamous c ell carcinoma of larynx [id number] C32.9 CT scan on November 24, 2023 demonstrat ed a T4a laryngeal mass. Laryngosco py performed on December 08, 2023 with large left supraglott ic larynx mass that biopsy demonstrat ed squamous cell carcinoma. PET scan performed on December 22, 2023 with findings of supraglott ic mass as well as hypermetab olism cervical lymph nodes and lung nodules that were hypermetab olic consistent with distant metastatic disease.Pu lmonary nodule in the right upper lobe 1.1 cm in size. Superior segment nodule of the right lower lobe 1.0 cm with SUV of 6.3. Left adrenal mass measuring 2.5 x 3.3 cm with no significan t uptake. Patient had EBUS performed on December 31, 2023 to right lung lesions with 2 lung nodules sampled both of those pathology consistent with squamous cell carcinoma. Repeat PET scan on January 12, 2024 with adrenal mass negative. 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 T4a N1 M1. ECOG 0. Discussed with patient the cement treatment options based on NCCN guidelines . Considerat ion for first-line immune therapy with Keytruda as likely patient would tolerate well. Hopefully would provide patient with response. Will request P 16 results from [facility]. Discussed additional testing with on peripheral blood tempus testing. Will follow-up for any signs of mutational status. PET scan on July 31, 2024 with interval improvemen t in previously seen left pharyngeal uptake.Per sistent uptake to left pharyngeal tonsil, left lymph node and left parotid gland. Uptake to right suprahilar /perihilar nodule, slightly increased in size up to 1.6 cm. Previously seen right infrahilar nodule has decreased. Multiple pulmonary nodules all of which are below the size threshold for reliable characteri zation by PET. Possibly infectious . Patient with a productive cough. Prescripti on sent for doxycyclin e 100 mg i tab po b.i.d. x 7 days. Will follow-up CT chest in 6-8 weeks after treatment to assess for resolution . CT chest on September 19, 2024 with 3 cm right hilar spiculated mass enlarged compared to prior imaging on pet scan from July 31, 2024. Small micronodul es likely in the right upper lobe could reflect infectious /inflammat ory process.Wo uld continue with keytruda. Prior imaging reviewed and area in the right hilum was around [address] scan of the neck and chest November 22, 2024 with stable findings. No change in lymph node size. Subcarinal lymph nodes stable. Recommend continued therapy with Keytruda. No new areas of disease. No evidence of disease progressio n. He will be due for follow-up imaging around March 2025. Will schedule CT neck chest abdomen and pelvis. Metastatic malignant neoplasm to lung [id number] C78.01 PET scan performed on December 22, 2023 with findings of supraglott ic mass as well as hypermetab olism cervical lymph nodes and lung nodules that were hypermetab olic consistent with distant metastatic disease.Pu lmonary nodule in the right upper lobe 1.1 cm in size. Superior segment nodule of the right lower lobe 1.0 cm with SUV of 6.3. Left adrenal mass measuring 2.5 x 3.3 cm with no significan t uptake. Hypomagnesemia [id number] E83.42 Currently taking daily magnesium. Will follow-up labs today Constipation 12649525 K5 9.00 Patient has had constipati on is taking MiraLax and bowel movements have improved a little with this. Prescripti on sent for Linzess. Cobalamin deficiency 190 668056 E53.8 History of vitamin B12 deficiency . He is currently receiving monthly vitamin B12. Labs on June 08, 2024 with vitamin B12 normal at 426. Normal folic acid. Will follow up labs today. Severe dry skin 60111816 2 L85.3 Patient with dry pruritic skin. No rash. Discussed using moisturize r with Aquaphor and Aveeno body wash. He is using moisturize r with Aquaphor and Aveeno body wash with improvemen t of dry skin. Nausea and vomiting 1693 1999 R11.2 Prescribed Zofran as needed. [id number] Evangelist Rees MD [facility] [address] [place] [address] 03/14/2025 08:01:03 03/14/2025 08:41:05 Immunological therapy [id number] Z51.12 Cycle 1 of Keytruda on April 05, 2024.Cycle 2 of Keytruda on April 27, 2024.Cycle 3 of Keytruda on May 18, 2024.Cycle 4 of Keytruda on June 08, 2024.Cycle 5 of Keytruda on June 29, 2024.Cycle 6 of Keytruda on July 21, 2024.Cycle 7 of Keytruda on August 10, 2024.Cycle 8 of Keytruda on August 30, 2024.Cycle 9 of Keytruda on September 20, 2024.Cycle 10 of Keytruda on October 11, 2024.Cycle 11 of Keytruda on November 02, 2024.Cycle 12 of Keytruda on November 22, 2024.Cycle 13 held on Keytruda on December 14, 2024 due to elevated liver enzymes.Cy alexander 14 on Keytruda on December 21, 2024.Cycle 15 on Keytruda on January 11, 2025.Cycle 16 on Keytruda on February 01, 2025.Cycle 17 on Keytruda on February 22, 2025. Will review CBC CMP and TSH prior to Keytruda today to monitor for toxicity. Squamous c ell carcinoma of larynx [id number] C32.9 CT scan on November 24, 2023 demonstrat ed a T4a laryngeal mass. Laryngosco py performed on December 08, 2023 with large left supraglott ic larynx mass that biopsy demonstrat ed squamous cell carcinoma. PET scan performed on December 22, 2023 with findings of supraglott ic mass as well as hypermetab olism cervical lymph nodes and lung nodules that were hypermetab olic consistent with distant metastatic disease.Pu lmonary nodule in the right upper lobe 1.1 cm in size. Superior segment nodule of the right lower lobe 1.0 cm with SUV of 6.3. Left adrenal mass measuring 2.5 x 3.3 cm with no significan t uptake. Patient had EBUS performed on December 31, 2023 to right lung lesions with 2 lung nodules sampled both of those pathology consistent with squamous cell carcinoma. Repeat PET scan on January 12, 2024 with adrenal mass negative. 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 T4a N1 M1. ECOG 0. Discussed with patient the cement treatment options based on NCCN guidelines . Considerat ion for first-line immune therapy with Keytruda as likely patient would tolerate well. Hopefully would provide patient with response. Will request P 16 results from [facility]. Discussed additional testing with on peripheral blood tempus testing. Will follow-up for any signs of mutational status. PET scan on July 31, 2024 with interval improvemen t in previously seen left pharyngeal uptake.Per sistent uptake to left pharyngeal tonsil, left lymph node and left parotid gland. Uptake to right suprahilar /perihilar nodule, slightly increased in size up to 1.6 cm. Previously seen right infrahilar nodule has decreased. Multiple pulmonary nodules all of which are below the size threshold for reliable characteri zation by PET. Possibly infectious . Patient with a productive cough. Prescripti on sent for doxycyclin e 100 mg i tab po b.i.d. x 7 days. Will follow-up CT chest in 6-8 weeks after treatment to assess for resolution . CT scan of the neck chest abdomen pelvis on March 05, 2025. Comparison to prior PET scan on December 22, 2023. Left parotid gland with enhancing mass at 1.7 x 1.1 cm. Slightly enlarged from PET scan images on December 22, 2023 where it was 1.2 x 1.1 cm. Similar appearance overall. Right parotid gland with enhancing mass at 1.6 x 1.3 cm with adjacent enlarged cervical adenopathy measuring 1.4 cm in diameter. This appears new from prior imaging. Decreased soft tissue in the hypoglossa l region at the level of the hyoid bone. Stable postsurgic al changes. Imaging of the chest abdomen and pelvis with right perihilar lymph node 1.3 cm stable in size. No new thoracic lymphadeno bryce. 6 mm solid nodule in the mid upper left lung laterally and 4 mm lateral right middle lobe nodules stable in size. No evidence of disease in the abdomen or pelvis. Patient returns on March 14, 2025. Concern that right parotid gland mass appears new from prior imaging. Patient's Keytruda has been held. Patient previously has had liver function elevation secondary to Keytruda. I am concerned that patient may have parotid gland inflammati on secondary to Keytruda. Uncommon side effect however patient has had several doses. Favoring trial of prednisone with repeat imaging of the neck in 4-6 weeks. Will follow-up Metastatic malignant neoplasm to lung [id number] C78.01 PET scan performed on December 22, 2023 with findings of supraglott ic mass as well as hypermetab olism cervical lymph nodes and lung nodules that were hypermetab olic consistent with distant metastatic disease.Pu lmonary nodule in the right upper lobe 1.1 cm in size. Superior segment nodule of the right lower lobe 1.0 cm with SUV of 6.3. Left adrenal mass measuring 2.5 x 3.3 cm with no significan t uptake. Hypomagnesemia [id number] E83.42 Currently taking daily magnesium. Will follow-up labs today Constipation [id number] K5 9.00 Patient has had constipati on is taking MiraLax and bowel movements have improved a little with this. Prescripti on sent for Marleen. Cobalamin deficiency 190 [id number] E53.8 History of vitamin B12 deficiency . He is currently receiving monthly vitamin B12. Labs on June 08, 2024 with vitamin B12 normal at 426. Normal folic acid. Will follow up labs today. Severe dry skin [id number] L85.3 Patient with dry pruritic skin. No rash. Discussed using moisturize r with Aquaphor and Aveeno body wash. He is using moisturize r with Aquaphor and Aveeno body wash with improvemen t of dry skin. Nausea and vomiting [id number] 1999 R11.2 Prescribed Zofran as needed. Parotitis [id number] K11.[address] scan of the neck chest abdomen pelvis on March 05, 2025. Comparison to prior PET scan on December 22, 2023. Left parotid gland with enhancing mass at 1.7 x 1.1 cm. Slightly enlarged from PET scan images on December 22, 2023 where it was 1.2 x 1.1 cm. Similar appearance overall. Right parotid gland with enhancing mass at 1.6 x 1.3 cm with adjacent enlarged cervical adenopathy measuring 1.4 cm in diameter. This appears new from prior imaging. Decreased soft tissue in the hypoglossa l region at the level of the hyoid bone. Stable postsurgic al changes. Imaging of the chest abdomen and pelvis with right perihilar lymph node 1.3 cm stable in size. No new thoracic lymphadeno bryce. 6 mm solid nodule in the mid upper left lung laterally and 4 mm lateral right middle lobe nodules stable in size. No evidence of disease in the abdomen or pelvis. Patient returns on March 14, 2025. Concern that right parotid gland mass appears new from prior imaging. Patient's Keytruda has been held. Patient previously has had liver function elevation secondary to Keytruda. I am concerned that patient may have parotid gland inflammati on secondary to Keytruda. Uncommon side effect however patient has had several doses. Favoring trial of prednisone with repeat imaging of the neck in 4-6 weeks. Will follow-up. Sending in prescripti on for prednisone . Will follow-up repeat imaging. Hopeful to potentiall y resume Keytruda. Will follow-up Health Concerns Section Related Observation LastModified by Organization Detai ls LastModified Time None Recorded Concern Status LastModified by Organization Details LastModified Time None Recorded Advance Directives Directive None Recorded Payers Insurance Date Sequence Insurance Name Policy Number Policy Lockhart Covered Member ID Lockhart Member ID Guarantor Name 01/11/2025 [place]ARE[place] [facility] [id number] [facility] 03/09/2025 1 [facility] (MEDICARE REPLACEMENT/A DVANTAGE - HMO) [id number] [facility] [id number] [facility] 06/08/2024 1 [place] Vamsi Hinkle [id number] Vamsi [facility] 03/09/2025 2 [facility] (MEDICAID HMO) [facility] [id number] [facility] Notes Date Note Type Note Provider Name and Address Organization Details Recorded Time 01/11/2025 text/html 79 yo M returns for evaluation 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 Patient presented to [facility] for evaluation with ENT in November 2023. Patient had worsening odynophagia and dysphagia along with an [address] scan on November 24, 2023 demonstrated a T4 a laryngeal mass. Laryngoscopy performed on December 08, 2023 with large left supraglottic larynx mass that biopsy demonstrated squamous cell carcinoma. PET scan performed on December 22, 2023 with findings of supraglottic mass as well as hypermetabolism cervical lymph nodes and lung nodules that were hypermetabolic consistent with distant metastatic disease.Pulmonary nodule in the right upper lobe 1.1 cm in size. Superior segment nodule of the right lower lobe 1.0 cm with SUV of 6.3. Left adrenal mass measuring 2.5 x 3.3 cm with no significant uptake. Patient had EBUS performed on December 31, 2023 to right lung lesions with 2 lung nodules sampled both of those pathology consistent with squamous cell carcinoma. Repeat PET scan on January 12, 2024 with adrenal mass negative. 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 T4a N1 M1. ECOG 0. Discussed with patient the cement treatment options based on NCCN guidelines. Consideration for first-line immune therapy with Keytruda as likely patient would tolerate well. Hopefully would provide patient with response. Will request P 16 results from [facility]. Discussed additional testing with on peripheral blood tempus testing. Will follow-up for any signs of mutational status PET scan on July 31, 2024 with interval improvement in previously seen left pharyngeal uptake.Persistent uptake to left pharyngeal tonsil, left lymph node and left parotid gland. Uptake to right suprahilar/perihilar nodule, slightly increased in size up to 1.6 cm. Previously seen right infrahilar nodule has decreased. Multiple pulmonary nodules all of which are below the size threshold for reliable characterization by PET. Possibly infectious. Patient with a productive cough. Prescription sent for doxycycline 100 mg i tab po b.i.d. x 7 days. Will follow-up CT chest in 6-8 weeks after treatment to assess for resolution. Patient treated with antibiotic therapy.Patient returns August 30, 2024 for continued dosing of Keytruda. CT chest on September 19, 2024 with 3 cm right hilar spiculated mass enlarged compared to prior imaging on pet scan from July 31, 2024. Small micronodules likely in the right upper lobe could reflect infectious/inflammato ry process.Would continue with keytruda. Prior imaging reviewed and area in the right hilum was around 2 cm previously.Would favor repeat PET scan with next imaging. Discussed potential bronchoscopy with pulmonary medicine. CT scan of the neck and chest November 22, 2024 with stable findings. No change in lymph node size. Subcarinal lymph nodes stable. Recommend continued therapy with Keytruda. No new areas of disease. No evidence of disease progression. Labs December 14, 2024 with elevated liver enzymes. AST 209 and ALT 389. Alkaline phosphatase 351. Normal bilirubin. Negative hepatitis panel. Negative ultrasound of abdomen on December 15, 2024. Keytruda held at that time due to elevated liver enzymes. Labs on December 21, 2024 with normal liver enzymes. AST 15 and ALT 59. Patient returns January 11, 2025 for continued dosing of Keytruda. Will continue to monitor labs for toxicity. Will review CBC and CMP prior to Keytruda today to monitor for toxicity. Patient states [facility] visit due to urinary retention. He was diagnosed with BPH and started on Flomax. He is not longer experiencing urinary retention. He states while he was in the ED he had imaging performed and has a large right inguinal hernia. He had to see cardiology to have cardiac clearance before having the hernia repaired. He has a blockage and needs to have a stent placed. He has been started on Eliquis for atrial fibrillation. Will request records from [facility] to review. He has had constipation is taking MiraLax and bowel movements have improved a little with this. Prescription sent for Linzess and he is planning to pick this up from pharmacy today. Siobhan Shannon PA-C [address], [place], [address], [place] [facility] - [place] & [place] 01/11/2025 09:47:38 02/01/2025 text/html 79 yo M returns for evaluation 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 Patient presented to [facility] for evaluation with ENT in November 2023. Patient had worsening odynophagia and dysphagia along with an [address] scan on November 24, 2023 demonstrated a T4 a laryngeal mass. Laryngoscopy performed on December 08, 2023 with large left supraglottic larynx mass that biopsy demonstrated squamous cell carcinoma. PET scan performed on December 22, 2023 with findings of supraglottic mass as well as hypermetabolism cervical lymph nodes and lung nodules that were hypermetabolic consistent with distant metastatic disease.Pulmonary nodule in the right upper lobe 1.1 cm in size. Superior segment nodule of the right lower lobe 1.0 cm with SUV of 6.3. Left adrenal mass measuring 2.5 x 3.3 cm with no significant uptake. Patient had EBUS performed on December 31, 2023 to right lung lesions with 2 lung nodules sampled both of those pathology consistent with squamous cell carcinoma. Repeat PET scan on January 12, 2024 with adrenal mass negative. 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 T4a N1 M1. ECOG 0. Discussed with patient the cement treatment options based on NCCN guidelines. Consideration for first-line immune therapy with Keytruda as likely patient would tolerate well. Hopefully would provide patient with response. Will request P 16 results from [facility]. Discussed additional testing with on peripheral blood tempus testing. Will follow-up for any signs of mutational status PET scan on July 31, 2024 with interval improvement in previously seen left pharyngeal uptake.Persistent uptake to left pharyngeal tonsil, left lymph node and left parotid gland. Uptake to right suprahilar/perihilar nodule, slightly increased in size up to 1.6 cm. Previously seen right infrahilar nodule has decreased. Multiple pulmonary nodules all of which are below the size threshold for reliable characterization by PET. Possibly infectious. Patient with a productive cough. Prescription sent for doxycycline 100 mg i tab po b.i.d. x 7 days. Will follow-up CT chest in 6-8 weeks after treatment to assess for resolution. Patient treated with antibiotic therapy.Patient returns August 30, 2024 for continued dosing of Keytruda. CT chest on September 19, 2024 with 3 cm right hilar spiculated mass enlarged compared to prior imaging on pet scan from July 31, 2024. Small micronodules likely in the right upper lobe could reflect infectious/inflammato ry process.Would continue with keytruda. Prior imaging reviewed and area in the right hilum was around 2 cm previously.Would favor repeat PET scan with next imaging. Discussed potential bronchoscopy with pulmonary medicine. CT scan of the neck and chest November 22, 2024 with stable findings. No change in lymph node size. Subcarinal lymph nodes stable. Recommend continued therapy with Keytruda. No new areas of disease. No evidence of disease progression. Labs December 14, 2024 with elevated liver enzymes. AST 209 and ALT 389. Alkaline phosphatase 351. Normal bilirubin. Negative hepatitis panel. Negative ultrasound of abdomen on December 15, 2024. Keytruda held at that time due to elevated liver enzymes. Labs on December 21, 2024 with normal liver enzymes. AST 15 and ALT 59. PET scan on December 04, 2024 with overall stable exam relative to the prior study with no new or progressive disease evident. Patient states he went [facility] due [facility] urinary retention. He was diagnosed with BPH and started on Flomax. He is not longer experiencing urinary retention. He is planning to follow with Urology. Patient returns February 01, 2025 for continued dosing of Keytruda. Will continue to monitor labs for toxicity. Will review CBC and CMP prior to Keytruda today to monitor for toxicity. He has a large right inguinal hernia and is scheduled to follow up with a surgeon this month. He had to see cardiology to have cardiac clearance before having the hernia repaired. He was recently evaluated per cardiology for possible blockage but patient states he did not have a blockage and did not need to have a stent placed. He has noticed an enlarged cervical lymph node bilaterally. No tenderness. Will continue to monitor. He will be due for follow-up imaging around March 2025. Will schedule CT neck chest abdomen and pelvis at that time. Siobhan Shannon PA-C [address] , [place], [address], [place] [facility] & [place] 02/01/2025 09:21:30 02/06/2025 text/html 79-year-old man referred for a right inguinal hernia. Patient states he noticed it several months ago and it has increased in size. He states that he has intermittent constipation and feels pain in the groin when defecating. He also has some occasional urinary retention. Patient has a history of prior gastrostomy tube, now removed. He also has a history of stage IV laryngeal cancer, treated with radiation chemotherapy. Imaging has been stable for some time. He states that initially he had difficulty with swallowing and some stridor, no longer has the symptoms after treatment. Claudia Childs MD [address], [place], [address], [place] [facility] & [place] 02/08/2025 14:25:57 02/22/2025 text/html 79 yo M returns for evaluation 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 Patient presented to [facility] for evaluation with ENT in November 2023. Patient had worsening odynophagia and dysphagia along with an [address] scan on November 24, 2023 demonstrated a T4 a laryngeal mass. Laryngoscopy performed on December 08, 2023 with large left supraglottic larynx mass that biopsy demonstrated squamous cell carcinoma. PET scan performed on December 22, 2023 with findings of supraglottic mass as well as hypermetabolism cervical lymph nodes and lung nodules that were hypermetabolic consistent with distant metastatic disease.Pulmonary nodule in the right upper lobe 1.1 cm in size. Superior segment nodule of the right lower lobe 1.0 cm with SUV of 6.3. Left adrenal mass measuring 2.5 x 3.3 cm with no significant uptake. Patient had EBUS performed on December 31, 2023 to right lung lesions with 2 lung nodules sampled both of those pathology consistent with squamous cell carcinoma. Repeat PET scan on January 12, 2024 with adrenal mass negative. 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 T4a N1 M1. ECOG 0. Discussed with patient the cement treatment options based on NCCN guidelines. Consideration for first-line immune therapy with Keytruda as likely patient would tolerate well. Hopefully would provide patient with response. Will request P 16 results from [facility]. Discussed additional testing with on peripheral blood tempus testing. Will follow-up for any signs of mutational status PET scan on July 31, 2024 with interval improvement in previously seen left pharyngeal uptake.Persistent uptake to left pharyngeal tonsil, left lymph node and left parotid gland. Uptake to right suprahilar/perihilar nodule, slightly increased in size up to 1.6 cm. Previously seen right infrahilar nodule has decreased. Multiple pulmonary nodules all of which are below the size threshold for reliable characterization by PET. Possibly infectious. Patient with a productive cough. Prescription sent for doxycycline 100 mg i tab po b.i.d. x 7 days. Will follow-up CT chest in 6-8 weeks after treatment to assess for resolution. Patient treated with antibiotic therapy.Patient returns August 30, 2024 for continued dosing of Keytruda. CT chest on September 19, 2024 with 3 cm right hilar spiculated mass enlarged compared to prior imaging on pet scan from July 31, 2024. Small micronodules likely in the right upper lobe could reflect infectious/inflammato ry process.Would continue with keytruda. Prior imaging reviewed and area in the right hilum was around 2 cm previously.Would favor repeat PET scan with next imaging. Discussed potential bronchoscopy with pulmonary medicine. CT scan of the neck and chest November 22, 2024 with stable findings. No change in lymph node size. Subcarinal lymph nodes stable. Recommend continued therapy with Keytruda. No new areas of disease. No evidence of disease progression. Labs December 14, 2024 with elevated liver enzymes. AST 209 and ALT 389. Alkaline phosphatase 351. Normal bilirubin. Negative hepatitis panel. Negative ultrasound of abdomen on December 15, 2024. Keytruda held at that time due to elevated liver enzymes. Labs on December 21, 2024 with normal liver enzymes. AST 15 and ALT 59. PET scan on December 04, 2024 with overall stable exam relative to the prior study with no new or progressive disease evident. Patient states he went [facility]. He was diagnosed with BPH and started on Flomax. He is not longer experiencing urinary retention. He is planning to follow with Urology. Patient returns February 22, 2025 for continued dosing of Keytruda. Patient is doing well. Will continue to monitor labs for toxicity. Will review CBC and CMP prior to Keytruda today to monitor for toxicity. He has a large right inguinal hernia and is planning to follow up with a surgeon for this. He will be due for follow-up imaging around March 2025. Will schedule CT neck chest abdomen and pelvis. 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 Patient presented to [facility] for evaluation with ENT in November 2023. Patient had worsening odynophagia and dysphagia along with an [address] scan on November 24, 2023 demonstrated a T4 a laryngeal mass. Laryngoscopy performed on December 08, 2023 with large left supraglottic larynx mass that biopsy demonstrated squamous cell carcinoma. PET scan performed on December 22, 2023 with findings of supraglottic mass as well as hypermetabolism cervical lymph nodes and lung nodules that were hypermetabolic consistent with distant metastatic disease.Pulmonary nodule in the right upper lobe 1.1 cm in size. Superior segment nodule of the right lower lobe 1.0 cm with SUV of 6.3. Left adrenal mass measuring 2.5 x 3.3 cm with no significant uptake. Patient had EBUS performed on December 31, 2023 to right lung lesions with 2 lung nodules sampled both of those pathology consistent with squamous cell carcinoma. Repeat PET scan on January 12, 2024 with adrenal mass negative. 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 T4a N1 M1. ECOG 0. Discussed with patient the cement treatment options based on NCCN guidelines. Consideration for first-line immune therapy with Keytruda as likely patient would tolerate well. Hopefully would provide patient with response. Will request P 16 results from [facility]. Discussed additional testing with on peripheral blood tempus testing. Will follow-up for any signs of mutational status PET scan on July 31, 2024 with interval improvement in previously seen left pharyngeal uptake.Persistent uptake to left pharyngeal tonsil, left lymph node and left parotid gland. Uptake to right suprahilar/perihilar nodule, slightly increased in size up to 1.6 cm. Previously seen right infrahilar nodule has decreased. Multiple pulmonary nodules all of which are below the size threshold for reliable characterization by PET. Possibly infectious. Patient with a productive cough. Prescription sent for doxycycline 100 mg i tab po b.i.d. x 7 days. Will follow-up CT chest in 6-8 weeks after treatment to assess for resolution. Patient treated with antibiotic therapy.Patient returns August 30, 2024 for continued dosing of Keytruda. CT chest on September 19, 2024 with 3 cm right hilar spiculated mass enlarged compared to prior imaging on pet scan from July 31, 2024. Small micronodules likely in the right upper lobe could reflect infectious/inflammato ry process.Would continue with keytruda. Prior imaging reviewed and area in the right hilum was around 2 cm previously.Would favor repeat PET scan with next imaging. Discussed potential bronchoscopy with pulmonary medicine. CT scan of the neck and chest November 22, 2024 with stable findings. No change in lymph node size. Subcarinal lymph nodes stable. Recommend continued therapy with Keytruda. No new areas of disease. No evidence of disease progression. Labs December 14, 2024 with elevated liver enzymes. AST 209 and ALT 389. Alkaline phosphatase 351. Normal bilirubin. Negative hepatitis panel. Negative ultrasound of abdomen on December 15, 2024. Keytruda held at that time due to elevated liver enzymes. Labs on December 21, 2024 with normal liver enzymes. AST 15 and ALT 59. PET scan on December 04, 2024 with overall stable exam relative to the prior study with no new or progressive disease evident. Patient states he went [facility]. He was diagnosed with BPH and started on Flomax. He is not longer experiencing urinary retention. He is planning to follow with Urology. Patient returns February 22, 2025 for continued dosing of Keytruda. Patient is doing well. Will continue to monitor labs for toxicity. Will review CBC and CMP prior to Keytruda today to monitor for toxicity. He has a large right inguinal hernia and is planning to follow up with a surgeon for this. CT scan of the neck chest abdomen pelvis on March 05, 2025. Comparison to prior PET scan on December 22, 2023. Left parotid gland with enhancing mass at 1.7 x 1.1 cm. Slightly enlarged from PET scan images on December 22, 2023 where it was 1.2 x 1.1 cm. Similar appearance overall. Right parotid gland with enhancing mass at 1.6 x 1.3 cm with adjacent enlarged cervical adenopathy measuring 1.4 cm in diameter. This appears new from prior imaging. Decreased soft tissue in the hypoglossal region at the level of the hyoid bone. Stable postsurgical changes. Imaging of the chest abdomen and pelvis with right perihilar lymph node 1.3 cm stable in size. No new thoracic lymphadenopathy. 6 mm solid nodule in the mid upper left lung laterally and 4 mm lateral right middle lobe nodules stable in size. No evidence of disease in the abdomen or pelvis. Patient returns on March 14, 2025. Concern that right parotid gland mass appears new from prior imaging. Patient's Keytruda has been held. Patient previously has had liver function elevation secondary to Keytruda. I am concerned that patient may have parotid gland inflammation secondary to Keytruda. Uncommon side effect however patient has had several doses. Favoring trial of prednisone with repeat imaging of the neck in 4-6 weeks. Will follow-up. Sending in prescription for prednisone. Will follow-up repeat imaging. Hopeful to potentially resume Keytruda. Will follow-up Evangelist Rees MD [address], [place], [address], [facility] - [facility] - [place] & [place] 03/14/2025 08:48:46
--- OUTSIDE RECORDS SUMMARY | 2025-04-04 07:46 | XMS_ITS | Continuity of Care Document ---
Author Organization [facility] Address [address] [facility] [address] [place] [address] Care Team Providers Care Angledozer Operator Name Role Phone DESI VALDERRAMA Radiation Oncologist [phone] Assessment No assessment recorded. Plan of Treatment Reminders Order Date Submit Date Provider Last Modified By Organization Details Last Modified Time Details Appointments None recorded. Lab TSH, serum or plasma 2024 025 [email or web address] 6 [facility], [address] [place], [address], 5 08:24:07 CBC w/ diff 2024 025 [email or web address] 6 [facility], [address] [place], [address], 5 08:24:07 CMP, serum or plasma 2024 025 JERICHO [facility], [address] [place], [address], 5 09:03:11 magnesium, serum or plasma 2024 025 [email or web address] 6 [facility], [address] [place], [address], 5 08:24:07 vitamin B12 + folate, serum or blood 2024 025 [email or web address] 6 [facility], [address] [place], [address], 5 08:24:07 Referral None recorded. Procedures None recorded. Surgeries None recorded. Imaging CT, neck, soft tissue, w/ contrast 2024 025 [email or web address] 6 [facility] (Centralized Scheduling), [address] [place], [address], 5 09:01:35 CT, chest + abdomen + pelvis, w/ contrast 2024 025 [email or web address] 6 [facility] (Centralized Scheduling), [address] [facility], [place], [address], 5 09:01:35 Medication Orders None recorded. Patient TargetsNo targets recorded. Patient InstructionsNo instructions recorded. Reason for Referral None Reported. Results Created Date Observation Date Name Description Value Unit Range Abnormal Flag Note LastModifiedBy Organization Detail LastModifiedTime 03/05/2003/05/2025 CT, chest , w/ contr ast [facility] [address] [place] [address] Phone: Fax: Name: SUSANNAH KIM Exam Date: 03/05/20 25 : 1944 Age 79 years Gender : M Access ion: [id number] Physic cindy: SIOBHAN MCGOVERN Facili ty: [facility] Facili ty HSV: Outpat ient Exam: [...] upper lobe anteri deangelo and in the seismic prospecting observer ior medial left upper lobe. Linear atelec [...] ies in the right upper lobe and seismic prospecting observer ior left upper lobe charac terist ic [...] is stable measur ing 2.7 cm in [facility] er. The stomac h and small bowel [...] loops. Electr onical ly signed by: Gualberto Peters MD 2024 12:08 PM EDT RP Workst ation: [id number] Dictat ed By: Gualberto Peters Transc ribed By: Transc ribed On: 03/05/20 9:39 AM Electr onical ly signed by: Gualberto Peters 03/05/20 Thank you for referr ing [facility] Legall y authen ticate d by BROOKE Michel 03-05 09:39: 13 CC'ed Logic: Orderi ng Provid er: ELISEO MCCANN Attend ing Provid er: ELISEO MCCANN Referr ing Provid er: ELISEO MCCANN Admitt ing Provid er: ELISEO MCCANN [email or web address] [facility] [address] [place] [address], [place], [address], 03/07/2025 11:08:17 03/05/20 25 03/05/2025 CT, abdom en + pelvi s, w/ contr ast [facility] [address] [place] [address] Phone: Fax: Name: SUSANNAH KIM Exam Date: 03/05/20 : 1944 Age 79 years Gender : M Access ion: [id number] Physic cindy: ELISEO Murillo SIOBHAN Facili ty: [facility] Facili ty HSV: Outpat ient Exam: CT ABD PEL W EXAM: CT ABDOME N PELVIS WITH IV CONTRA ST, CT CHEST WITH IV CONTRA ST 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 Correl ation with PET/CT 12/04/19. Proced ure: Contig uous axial images throug [...] upper lobe anteri deangelo and in the seismic prospecting observer ior medial left upper lobe. Linear atelec [...] ies in the right upper lobe and seismic prospecting observer ior left upper lobe charac terist ic [...] is stable measur ing 2.7 cm in [facility] er. The stomac h and small bowel [...] loops. Electr onical ly signed by: Gualberto Peters MD 2024 12:08 PM EDT RP Workst ation: [id number] Dictat ed By: Gualberto Peters Transc ribed By: Transc ribed On: 03/05/20 9:38 AM Electr onical ly signed by: Gualberto Peters 03/05/20 Thank you for referr ing SUSANNAH KIM to [facility]. Legall y authen ticate d by BROOKE Michel 03-05 09:38: 58 CC'ed Logic: Orderi ng Provid er: ELISEO MCCANN Attend ing Provid er: ELISEO MCCANN Referr ing Provid er: ELISEO MCCANN Admitt ing Provid er: ELISEO MCCANN [email or web address] [facility] [address] [place] [address], [address], 03/07/2025 11:08:17 03/07/2003/05/2025 CT, neck, soft tissu e, w/ [facility] [address] [place] [address] Phone: Fax: Name: SUSANNAH KIM Exam Date: 03/05/20 : 1944 Age 79 years Gender : M Access ion: [id number] Physic cindy: SIOBHAN MCGOVERN Facili ty: [facility] Facili ty HSV: Outpat ient Exam: [...] Thank you for referr SUSANNAH Jacques to [facility]. Legall y authen ticate d by ROEL GALEANA 03-05 09:38: 47 CC'ed Logic: Orderi ng Provid er: ELISEO MCCANN Attend ing Provid er: ELISEO MCCANN Referr ing Provid er: ELISEO MCCANN Admitt ing Provid er: ELISEO MCCANN [email or web address] [facility] [address] [facility], [place], [address], 03/07/2025 11:07:53 Result Notes None recorded. Procedures Surgical History Date Name Laterality Status Provider Name and Address Organization Details Recorded Time open heart surgery completed Janeth Anderson [facility] & [place] 02/14/2024 09:56:24 operative procedure on knee completed Kristine Gipson [facility] [place] 04/05/2024 13:20:11 Imaging Results None recorded. Procedure Notes None recorded. Medical Equipment None Reported. Allergies Allergen ID Allergen Name Allergen Category Reaction Reaction Severity Criticality Documentation Date Start Date Code Code System Note Provider Name and Address Organization Details Recorded Time 449836 Product containin g penicilli n (product) medicatio n hives Not available Not available 02/06/2025 73057 8001 SNOMED Jackie price [facility] & [place] 08:40:08 Medications Name Sig Start Date Stop [...] Not Available Not Available No t Available [facility] Rees active Not Available [...] Updated DateTime 5 180.34 cm 23.8 kg/m2 19311.5 8 g 97.8 [degF] 94 % 94 % 70 /min 100 mm[Hg] 59 mm[Hg] Gonzalo Mendes [facility] [place] 5 08:19:37 Social History Question Answer Notes LastModified by [employer]ters ion Details LastModified Time Tobacco Smoking Status Current [facility] [place] 02/14/2024 09:56:11 What Is Your Level Of Caffeine Consumption? Occasional [email or web address] Information not available 04/05/2024 What Was The Date Of Your Most Recent Tobacco Screening? 04/05/2024 [email or web address] Information not available 04/05/2024 At What Age Did You Start Smoking Tobacco? 8 [email or web address] Information not available 02/14/2024 How Much Tobacco Do You Smoke? 1 PPD [email or web address] Information not available 02/14/2024 How Many Years Have You Smoked Tobacco? 69 Information not available 02/14/2024 Sex: Unknown Functional Status Question Answer Note LastModified by Organizat ion Details LastModified Time Do you use any illicit or recreational drugs? No [email or web address] Information not available 02/14/2024 Do you or have you ever used any other forms of tobacco or nicotine? No [email or web address] Information not available 04/05/2024 What is your level of alcohol consumption? None [email or web address] Information not available 02/14/2024 Mental Status None recorded. Family History Nothing Reported. Medical History No medical history recorded. Immunizations Vaccine Type Date Status Note Provider Nam e and Address Organization Details Recorded Time COVID-19 vaccine, vector-nr, rS-Ad26, PF, 0.5 mL 1 completed Kristine price, [place] - [facility] [place] & [place] 04/05/2024 13:16:44 Influenza, split virus, trivalent, preservative 9 completed Kristine price, [place] - [facility] [place] & [place] 04/05/2024 13:16:44 Past Encounters Encounter ID Performer Location Encounter Start Date Encounter Closed Date Diagnosis/Indication Diagnosis SNOMED-CT Code Diagnosis ICD10 Code Diagnosis Note [id number] Siobhan Shannon PA-C [facility] [address] [place] [address] 02/01/2025 08:35:14 02/01/2025 09:24:21 Immunological therapy 52495211 Z51.12 Cycle 1 of Keytruda on April [...] toxicity. Squamous c ell carcinoma of larynx 753229565 C32.9 CT scan on November 24, 2023 [...] response. Will request P 16 results from [facility]. Discussed additional testing with on peripheral [...] that time. Metastatic malignant neoplasm to lung 71537058 C78.01 PET scan performed on December 22, [...] cm with no significan t uptake. Hypomagnesemia 404853766 E83.42 Currently taking daily magnesium. Will follow-up labs today Constipation 08563924 K5 9.00 Patient has had constipati on is taking MiraLax and bowel movements have improved a little with this. Prescripti on sent for Marleen. Cobalamin deficiency 190 039357 E53.8 History of vitamin B12 deficiency . He is currently receiving monthly vitamin B12. Labs on June 08, 2024 with vitamin B12 normal at 426. Normal folic acid. Will follow up labs today. Severe dry skin 41886385 2 L85.3 Patient with dry pruritic skin. No rash. Discussed using moisturize r with Aquaphor and Aveeno body wash. He is using moisturize r with Aquaphor and Aveeno body wash with improvemen t of dry skin. Nausea and vomiting 1692 1999 R11.2 Prescribed Zofran as needed. [id number] Claudia Childs MD [facility] [address] [place] [address] 02/06/2025 08:26:36 02/06/2025 08:58:51 Irreducible inguinal hernia 961386930 K40.30 Right inguinal hernia containing chronicall y [...] minutes. Squamous c ell carcinoma of larynx 242842426 C32.9 Patient with stage IVC squamous cell [...] surgical options. Metastatic malignant neoplasm to lung 20488583 C78.01 [id number] Siobhan Shannon PA-C [facility] [address] [place] [address] 02/22/2025 08:09:06 02/22/2025 08:44:34 Immunological therapy 85198795 Z51.12 Cycle 1 of Keytruda on April [...] toxicity. Squamous c ell carcinoma of larynx 433009467 C32.9 CT scan on November 24, 2023 [...] response. Will request P 16 results from [facility]. Discussed additional testing with on peripheral [...] and pelvis. Metastatic malignant neoplasm to lung 01266631 C78.01 PET scan performed on December 22, [...] cm with no significan t uptake. Hypomagnesemia 708643656 E83.42 Currently taking daily magnesium. Will follow-up labs today Constipation 66810068 K5 9.00 Patient has had constipati on is taking MiraLax and bowel movements have improved a little with this. Prescripti on sent for Linzess. Cobalamin deficiency 190 284959 E53.8 History of vitamin B12 deficiency . He is currently receiving monthly vitamin B12. Labs on June 08, 2024 with vitamin B12 normal at 426. Normal folic acid. Will follow up labs today. Severe dry skin 92576647 2 L85.3 Patient with dry pruritic skin. No rash. Discussed using moisturize r with Aquaphor and Aveeno body wash. He is using moisturize r with Aquaphor and Aveeno body wash with improvemen t of dry skin. Nausea and vomiting 1693 2000 R11.2 Prescribed Zofran as needed. Health Concerns Section Related Observation LastModified by Organization Detai ls LastModified Time None Recorded Concern Status LastModified by Organization Details LastModified Time None Recorded Payers Encounter Date Sequence Insurance Name Policy Number Policy Lockhart Covered Member ID Lockhart Member ID Guarantor Name 02/22/2025 2 [employer] [facility] (MEDICAID HMO) Vamsi [facility] [id number] [facility] 02/22/2025 1 [facility] (MEDICARE REPLACEMENT/A DVANTAGE - HMO) KYREECE Currie [facility] [id number] 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 Patient presented to [facility] for evaluation with ENT in November [...] response. Will request P 16 results from [facility]. Discussed additional testing with on peripheral [...] disease evident. Patient states he went to [facility] due to urinary retention. He [...] chest abdomen and pelvis. Siobhan Shannon PA-C [address], [place], [address], [place] [facility] [place] [facility] [place] 02/22/2025 08:56:08
--- OUTSIDE RECORDS SUMMARY | 2025-04-04 07:47 | XMS_ITS | Continuity of Care Document ---
Author Organization [facility] NEW Address [address] [place] [address] Care Team Providers Care Manager Science Name Role Phone DESI VALDERRAMA Radiation Oncologist [phone] Assessment No assessment recorded. Plan of Treatment Reminders Order Date Submit Date Provider Last Modified By Organization Details Last Modified Time Details Appointments None record ed. Lab None record ed. Referral None record ed. Procedures None record ed. Surgeries None record ed. Imaging None record ed. Medication Orders None record ed. Patient TargetsNo targets recorded. Patient InstructionsNo instructions recorded. Reason for Referral None Reported. Results Created Date Observation Date Name Description Value Unit Range Abnormal Flag Note LastModifiedBy Organization Detail LastModifiedTime 01/18/20 25 12/25/2024 CT, abdom en + pelvi s, w/ contr ast No observ ation record ed. [email or web address] [facility] (Med Record) [address], [place], [address], 01/25/2025 08:38:15 03/05/20 25 03/05/2025 CT, chest , w/ contr ast [facility] [address] [place] [address] Phone: Fax: Name: SUSANNAH KIM Exam Date: 03/05/20 : 1944 Age 79 years Gender : M Access ion: [id number] Physic cindy: SIOBHAN MCGOVERN Facili ty: [facility] Facili ty HSV: Outpat ient Exam: [...] upper lobe anteri deangelo and in the shift commander ior medial left upper lobe. Linear atelec [...] ies in the right upper lobe and shift commander ior left upper lobe charac terist ic [...] is stable measur ing 2.7 cm in [facility] er. The stomac h and [...] Workst ation: [id number] Dictat ed By: Gulaberto Peters Transc ribed By: Transc ribed On: 03/05/20 9:39 AM Electr onical ly signed by: Gualberto Peters 03/05/20 Thank you for referr ing SUSANNAH KIM Y to [facility] Hospit [facility]. Legall y authen ticate d by BROOKE Michel 03-05 09:39: 13 CC'ed Logic: Orderi ng Provid er: HENEGA R SIOBHAN Attend ing Provid er: ELISEO MCCANN Referr ing Provid er: ELISEO MCCANN Admitt ing Provid er: ELISEO MCCANN [email or web address] [facility] [address] [facility] [address], [place], [address], 03/07/2025 11:08:17 03/05/20 25 03/05/2025 CT, abdom en + pelvi s, w/ contr ast [facility] [address] [place] [address] Phone: Fax: Name: SUSANNAH KIM Exam Date: 03/05/20 : 1944 Age 79 years Gender : M Access ion: [id number] Physic cindy: SIOBHAN MCGOVERN Facili ty: [facility] Facili ty HSV: Outpat ient Exam: CT [...] upper lobe anteri deangelo and in the shift commander ior medial left upper lobe. Linear atelec [...] ies in the right upper lobe and shift commander ior left upper lobe charac terist ic [...] is stable measur ing 2.7 cm in [facility] er. The stomac h and [...] Peters 03/05/20 Thank you for referr ing ARLENE KIMMIREYA Mauricio to [facility]. Legall y authen ticate d by BROOKE Michel 03-05 09:38: 58 CC'ed Logic: Orderi ng Provid er: ELISEO MCCANN Attend ing Provid er: ELISEO MCCANN Referr ing Provid er: ELISEO MCCANN Admitt ing Provid er: ELISEO MCCANN [facility] [address] [place] [address], [address], 03/07/2025 11:08:17 03/07/20 25 03/05/2025 CT, neck, soft tissu e, w/ contr ast [facility] [address] [place] [address] Phone: Fax: Name: SUSANNAH KIM Exam Date: 03/05/20 : 1944 Age 79 years Gender : M Access ion: [id number] 6539 Physic cindy: SIOBHAN MCGOVERN Facili ty: [facility] Facili ty HSV: Outpat ient Exam: CT [...] Tomi Leija 03/05/20 Thank you for referr ing WARMOU TH, STANLE Y to [facility]. Legall y jhon rosas d by ROEL GALEANA 0 03-05 09:38: 47 CC'ed Logic: Orderi ng Provid er: ELISEO MCCANN Attend ing Provid er: ELISEO MCCANN Referr ing Provid er: ELISEO MCCANN Admitt ing Provid er: ELISEO MCCANN [email or web address] [facility] [address] [facility] [address], [place], [address], 03/07/2025 11:07:53 Result Notes None recorded. Procedures Surgical History Date Name Laterality Status Provider Name and Address Organization Details Recorded Time open heart surgery completed Janeth Anderson [facility] [place] 02/14/2024 09:56:24 operative procedure on knee completed Kristine Brandan [facility] [place] 04/05/2024 13:20:11 Imaging Results None recorded. Procedure Notes None recorded. Medical Equipment None Reported. Allergies Allergen ID Allergen Name Allergen Category Reaction Reaction Severity Criticality Documentation Date Start Date Code Code System Note Provider Name and Address Organization Details Recorded Time 423540 Product containin g penicilli n (product) medicatio n hives Not available Not available 02/06/2025 06885 8001 SNOMED Jackie Roldan [facility] [place] 08:40:08 Medications Name Sig Start Date Stop [...] Not Available Not Available No t Available [facility] Rees active Not Available [...] Updated DateTime 5 180.34 cm 23.8 kg/m2 34301.8 6 g 70 /min 100 % 100 % 98.2 [degF] 110 mm[Hg] 60 mm[Hg] Jackie Yuli [facility] [place] 08:42:53 Social History Question Answer Notes LastModified by Organizat ion Details LastModified Time Tobacco Smoking Status Current Every Day Smoker Janeth price [facility] [place] 02/14/2024 09:56:11 What Is Your Level Of Caffeine Consumption? Occasional [email or web address] Information not available 04/05/2024 What Was The Date Of Your Most Recent Tobacco Screening? 04/05/2024 [email or web address] Information not available 04/05/2024 At What Age Did You Start Smoking Tobacco? 8 [email or web address] Information not available 02/14/2024 How Much Tobacco Do You Smoke? 1 PPD [email or web address] Information not available 02/14/2024 How Many Years Have You Smoked Tobacco? 69 [email or web address] Information not available 02/14/2024 Sex: Unknown Functional Status Question Answer Note LastModified by Organizat ion Details LastModified Time Do you use any illicit or recreational drugs? No [email or web address] Information not available 02/14/2024 Do you or have you ever used any other forms of tobacco or nicotine? No [email or web address] Information not available 04/05/2024 What is your level of alcohol consumption? None [email or web address] Information not available 02/14/2024 Mental Status None recorded. Family History Nothing Reported. Medical History No medical history recorded. Immunizations Vaccine Type Date Status Note Provider Nam e and Address Organization Details Recorded Time COVID-19 vaccine, vector-nr, rS-Ad26, PF, 0.5 mL 1 completed Kristine price, [facility] [place] [facility] [place] 04/05/2024 13:16:44 Influenza, split virus, trivalent, preservative 9 completed Kristine price, [facility] [place] [facility] [place] 04/05/2024 13:16:44 Past Encounters Encounter ID Performer Location Encounter Start Date Encounter Closed Date Diagnosis/Indication Diagnosis SNOMED-CT Code Diagnosis ICD10 Code Diagnosis Note [id number] Siobhan Shannon PA-C [facility] [address] [place] [address] 01/11/2025 09:03:46 01/11/2025 09:28:31 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 Will request P 16 results from [facility]. Discussed additional testing with on peripheral [...] Keytruda today. Patient states he went to [facility] since previous visit due to urinary retention. [...] atrial fibrillati on. Will request records from [facility] to review. 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 Immunological therapy 76 635731 Z51.12 Cycle 1 of Keytruda on April [...] Keytruda today to monitor for toxicity. Hypomagnesemia 172116097 E83.42 Currently taking daily magnesium. Will follow-up labs today Constipation 34696566 K5 9.00 Patient has had constipati on is taking MiraLax and bowel movements have improved a little with this. Prescripti on sent for Linzess and he is planning to pick this up from pharmacy today. Cobalamin deficiency 190 209970 E53.8 History of vitamin B12 deficiency . He is currently receiving monthly vitamin B12. Labs on June 08, 2024 with vitamin B12 normal at 426. Normal folic acid. Will follow up labs today. Severe dry skin 88541697 2 L85.3 Patient with dry pruritic skin. No rash. Discussed using moisturize r with Aquaphor and Aveeno body wash. He is using moisturize r with Aquaphor and Aveeno body wash with improvemen t of dry skin. Nausea and vomiting 1693 1999 R11.2 Prescribed Zofran as needed. [id number] Siobhan Shannon PA-C [facility] [address] [facility] [address] [place] [address] 02/01/2025 08:35:14 02/01/2025 09:24:21 Immunological therapy 96250123 Z51.12 Cycle 1 of Keytruda on April [...] toxicity. Squamous c ell carcinoma of larynx 579893467 C32.9 CT scan on November 24, 2023 [...] response. Will request P 16 results from [facility]. Discussed additional testing with on peripheral [...] that time. Metastatic malignant neoplasm to lung 87813628 C78.01 PET scan performed on December 22, [...] cm with no significan t uptake. Hypomagnesemia 996622581 E83.42 Currently taking daily magnesium. Will follow-up labs today Constipation 06555981 K5 9.00 Patient has had constipati on is taking MiraLax and bowel movements have improved a little with this. Prescripti on sent for Linzess. Cobalamin deficiency 190 517576 E53.8 History of vitamin B12 deficiency . He is currently receiving monthly vitamin B12. Labs on June 08, 2024 with vitamin B12 normal at 426. Normal folic acid. Will follow up labs today. Severe dry skin 52884513 2 L85.3 Patient with dry pruritic skin. No rash. Discussed using moisturize r with Aquaphor and Aveeno body wash. He is using moisturize r with Aquaphor and Aveeno body wash with improvemen t of dry skin. Nausea and vomiting 1692 1999 R11.2 Prescribed Zofran as needed. [id number] Claudia Childs MD [facility] NEW [address] [place] [address] 02/06/2025 08:26:36 02/06/2025 08:58:51 Irreducible inguinal hernia 619193903 K40.30 Right inguinal hernia containing chronicall y [...] minutes. Squamous c ell carcinoma of larynx 529413328 C32.9 Patient with stage IVC squamous cell [...] surgical options. Metastatic malignant neoplasm to lung 02193983 C78.01 Health Concerns Section Related Observation LastModified by Organization Detai ls LastModified Time None Recorded Concern Status LastModified by Organization Details LastModified Time None Recorded Payers Encounter Date Sequence Insurance Name Policy Number Policy Lockhart Covered Member ID Lockhart Member ID Guarantor Name 02/06/2025 2 [employer] [facility] (MEDICAID HMO) Vmasi Mallory [id number] Vamsi Mallory 02/06/2025 1 [facility] (MEDICARE REPLACEMENT/A DVANTAGE - HMO) ASHLEY Mallory [id number] Vamsi Mallory Notes Date Note Type Note Provider Name and Address Organization Details Recorded Time 02/06/2025 text/html 79-year-old man referred for a [...] the symptoms after treatment. Claudia Childs MD [address], [place], [address], [facility] - [place] [facility] [place] 02/08/2025 14:25:57
[2025-04-04 08:35] VITALS: PULSE 71; PULSE 75
[2025-04-04] MEDS: ALBUTEROL 0.083% 2.5 MG/3 ML NEB IH (08:35)
== END 2025-04-04 23:59 | disposition home or self-care (01) ==
LOC: RT 07:44
PROVIDERS: PCP Family Medicine; Visit Provider Internal Medicine Pulmonary Disease
DX: J44.9 Chronic obstructive pulmonary disease, unspecified (principal)
CPT/HCPCS: 94060; 94618; 94640; 94726; 94729

== ENCOUNTER 2025-04-13 13:14 | Outpatient (CLI) | payer MEDICARE, OTHER, SELFPAY ==
--- NOTE | 2025-04-13 01:30 | CT_ITS ---
FINAL REPORT TECHNIQUE: Axial images were obtained through the chest without contrast. CLINICAL HISTORY: Nodule COMPARISON: 04/27/2022 FINDINGS: There is streak artifact from left upper anterior chest wall pacemaker. Multiple median sternotomy wires are present. There are dense coronary artery calcifications. The heart size is normal. There is no pericardial or pleural effusion. 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 There are advanced changes of centrilobular emphysema with biapical pleural and parenchymal scarring. There is a noncalcified nodule in the periphery of the left upper lobe measuring 6 mm, well seen on image 147 of series 3 and stable. There is what appears to be a new spiculated nodule in the left perihilar region contiguous with hilar vessels measuring 1.5 x 1.0 cm and well seen on image 120 of series 3. This is highly concerning for neoplasm. IMPRESSION: New spiculated nodule left perihilar region highly concerning for neoplasm. Recommend PET-CT. Reviewed, Interpreted and Dictated by Chidi Dejesus MD Transcribed by Dayanna Pineda Authenticated and [facility]
--- OUTSIDE RECORDS SUMMARY | 2025-04-13 13:17 | XMS_ITS | Data Portability ---
Author Organization [place] - [facility] & ROSIBEL Soriano ADMIN Address [address] [place] [id number] Care Team Providers Care Nuclear Physician Name Role Phone JANNIEDESI TAYLOR Radiation Oncologist Assessment No assessment recorded. Plan of Treatment Reminders Order Date Submit Date Provider Last Modified By Organization Details Last Modified Time Details Appointments None recorded. Lab TSH, serum or plasma 2024 025 [email or web address] [facility], [address] [place], [address], 5 08:24:07 CBC w/ diff 2024 025 [email or web address] 6 [facility], [address] [place], [address], 5 08:24:07 CMP, serum or plasma 2024 025 JERICHO [facility], [address] [place], [address], 5 09:03:11 magnesium, serum or plasma 2024 025 [email or web address] 6 [facility], [address] [place], [address], 5 08:24:07 vitamin B12 + folate, serum or blood 2024 025 [email or web address] 6 [facility], [address] [place], [address], 5 08:24:07 magnesium, serum or plasma 2024 025 [email or web address] 6 [facility], [address] [place], [address], 5 09:36:26 CMP, serum or plasma 2024 025 [facility], [address] [place], [address], 5 09:33:09 CBC w/ diff 2024 [email or web address] [facility], [address] [place], [address], 5 09:36:25 TSH, serum or plasma 2024 [email or web address] [facility], [address] [place], [address], 5 09:36:26 vitamin B12 + folate, serum or blood 2024 [email or web address] [facility], [address] [place], [address], 5 09:36:26 magnesium, serum or plasma 2024 [email or web address] [facility], [address] [place], [address], 5 12:17:36 CMP, serum or plasma 2024 025 [facility], [address] [place], [address], 5 14:24:59 CBC w/ diff 2024 [email or web address] [facility], [address] [place], [address], 5 12:17:36 TSH, serum or plasma 2024 [email or web address] [facility], [address] [facility] [place], [address], 5 12:17:36 vitamin B12 + folate, serum or blood 2024 [email or web address] [facility], [address], [place], [address], 5 12:17:36 Referral None recorded. Procedures None recorded. Surgeries None recorded. Imaging CT, neck, soft tissue, w/ contrast - repeat CT following holding keytruda. 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 2024 025 [facility] (Centralized Scheduling), [address], [place], [address], 5 15:13:39 CT, neck, soft tissue, w/ contrast 2024 025 [email or web address] 6 [facility] (Centralized Scheduling), [address], [place], [address], 5 09:01:35 CT, chest + abdomen + pelvis, w/ contrast 2024 [email or web address] [place] [address] (Centralized Scheduling), [address], [place], [address], 5 09:01:35 Medication Orders None recorded. Patient TargetsNo targets recorded. Patient InstructionsNo instructions recorded. Reason for Referral None Reported. Results Created Date Observation Date Name Description Value Unit Range Abnormal Flag Note LastModifiedBy Organization Detail LastModifiedTime 12/14/1912/14/2024 CBC AUTO W DIFF WBC 6.9 K/uL 4.0-10 .5 Not Available [facility] ([facility]) [address], [place], [address], 12/14/2024 08:38:05 12/14/19 25 12/14/2024 CBC AUTO W DIFF RBC 4.7 M/mm3 4.7-6. 1 Not Available [facility] ([facility]) [address] , [place], [address], 12/14/2024 08:38:05 12/14/19 25 12/14/2024 CBC AUTO W DIFF HGB 14.1 gm/dL 13.5-1 8.0 Not Available [facility] ([facility]) [address], [place], [address], 12/14/2024 08:38:05 12/14/19 25 12/14/2024 CBC AUTO W DIFF HCT 43.6 % 42.0-5 2.0 Not Available [facility] ([facility]) [address] , [place], [address], 12/14/2024 08:38:05 12/14/19 25 12/14/2024 CBC AUTO W DIFF MCV 92.6 fL 78-100 Not Available [facility] ([facility]) [address] , [place], [address], 12/14/2024 08:38:05 12/14/19 25 12/14/2024 CBC AUTO W DIFF MCH 29.9 pg 27-31 Not Available [facility] ([facility]) [address] , [place], [address], 12/14/2024 08:38:05 12/14/19 25 12/14/2024 CBC AUTO W DIFF MCHC 32.3 g/dL 32-36 Not Available [facility] ([facility]) [address] , [place], [address], 12/14/2024 08:38:05 12/14/19 25 12/14/2024 CBC AUTO W DIFF RDW 14.3 % 11.5-1 4.0 high Not Available [facility] ([facility]) [address] , [place], [address], 12/14/2024 08:38:05 12/14/19 25 12/14/2024 CBC AUTO W DIFF platelet count 175 K/uL 150-45 0 Not Available [facility] ([facility]) [address] , [place], [address], 12/14/2024 08:38:05 12/14/19 25 12/14/2024 CBC AUTO W DIFF MPV 10.5 fL 6-9.5 high Not Available [facility] ([facility]) [address] , [place], [address], 12/14/2024 08:38:05 12/14/19 25 12/14/2024 CBC AUTO W DIFF neutrophil% 66.1 % 43-65 high Not Available [facility] ([facility]) [address] , [place], [address], 12/14/2024 08:38:05 12/14/19 25 12/14/2024 CBC AUTO W DIFF lymphocyte% 23.9 % 20.5-4 5.5 Not Available [facility] ([facility]) [address] , [place], [address], 12/14/2024 08:38:05 12/14/19 25 12/14/2024 CBC AUTO W DIFF monocyte% 6.5 % 5.5-11 .7 Not Available [facility] ([facility]) [address] [place], [address], 12/14/2024 08:38:05 12/14/19 25 12/14/2024 CBC AUTO W DIFF eosinophil% 2.9 % 0.9-2. 9 Not Available [facility] ([facility]) [address] , [place], [address], 12/14/2024 08:38:05 12/14/19 25 12/14/2024 CBC AUTO W DIFF basophil% 0.3 % 0.2-1. 0 Not Available [facility] ([facility]) [address] , [place], [address], 12/14/2024 08:38:05 12/14/19 25 12/14/2024 CBC AUTO W DIFF immature granulocytes % 0.3 % 0.0-0. 8 Not Available [facility] ([facility]) [address], [place], [address], 12/14/2024 08:38:05 12/14/19 25 12/14/2024 CBC AUTO W DIFF nucleated red blood cells % 0.0 % Not Available [facility] ([facility]) [address], [place], [address], 12/14/2024 08:38:05 12/14/19 25 12/14/2024 CBC AUTO W DIFF neutrophil# 4.6 K/uL 2.2-4. 8 Not Available [facility] ([facility]) [address], [place], [address], 12/14/2024 08:38:05 12/14/19 25 12/14/2024 CBC AUTO W DIFF lymphocyte# 1.7 cell/ mcL 1.3-2. 9 Not Available [facility] ([facility]) [address], [place], [address], 12/14/2024 08:38:05 12/14/19 25 12/14/2024 CBC AUTO W DIFF monocyte# 0.5 cell/ mcL 0.3-0. 8 Not Available [facility] ([facility]) [address], [place], [address], 12/14/2024 08:38:05 12/14/19 25 12/14/2024 CBC AUTO W DIFF eosinophil# 0.2 cell/ mcL 0-0.2 Not Available [facility] ([facility]) [address], [place], [address], 12/14/2024 08:38:05 12/14/19 25 12/14/2024 CBC AUTO W DIFF basophil# 0.0 cell/ mcL 0.0-1. 0 Not Available [facility] ([facility]) [address] , [place], [address], 12/14/2024 08:38:05 12/14/19 25 12/14/2024 CBC AUTO W DIFF immature gramulocytes # 0.02 K/uL Not Available [facility] ([facility]) [address], [place], [address], 12/14/2024 08:38:05 12/14/19 25 12/14/2024 CBC AUTO W DIFF nucleated red blood cells # 0.00 K/uL Not Available [facility] ([facility]) [address] , [place], [address], 12/14/2024 08:38:05 12/14/19 25 12/14/2024 CBC AUTO W DIFF manual differential NO Not Available [facility] ([facility]) [address] , [place], [address], 12/14/2024 08:38:05 12/14/19 25 12/14/2024 COMP METAB OLIC PANEL sodium 140 mmol/ L 136-14 5 Not Available [facility] ([facility]) [address] , [place], [address], 12/14/2024 08:54:46 12/14/19 25 12/14/2024 COMP METAB OLIC PANEL potassium 3.9 mmol/ L 3.6-5. 0 Not Available [facility] ([facility]) [address] , [place], [address], 12/14/2024 08:54:46 12/14/19 25 12/14/2024 COMP METAB OLIC PANEL chloride 102 mmol/ L 98-107 Not Available [facility] ([facility]) [address] , [place], [address], 12/14/2024 08:54:46 12/14/19 25 12/14/2024 COMP METAB OLIC PANEL carbon dioxide 30.7 mmol/ L 21.0-3 2.0 Not Available [facility] ([facility]) [address], [place], [address], 12/14/2024 08:54:46 12/14/19 25 12/14/2024 COMP METAB OLIC PANEL anion gap 11.2 Not Available [facility] ([facility]) [address], [place], [address], 12/14/2024 08:54:46 12/14/19 25 12/14/2024 COMP METAB OLIC PANEL glucose 124 mg/dL 70-120 high Not Available [facility] ([facility]) [address], [place], [address], 12/14/2024 08:54:46 12/14/19 25 12/14/2024 COMP METAB OLIC PANEL BUN 15 mg/dL 7-18 Not Available [facility] ([facility]) [address], [place], [address], 12/14/2024 08:54:46 12/14/19 25 12/14/2024 COMP METAB OLIC PANEL creatinine 1.0 mg/dL 0.6-1. 3 Not Available [facility] ([facility]) [address] [place], [address], 12/14/2024 08:54:46 12/14/19 25 12/14/2024 COMP METAB [...] gilbert ing kiney funct ion. Not Available [facility] ([facility]) [address] , [place], [address], 12/14/2024 08:54:46 12/14/19 25 12/14/2024 COMP METAB OLIC PANEL total protein 7.4 g/dL 6.4-8. 2 Not Available [facility] ([facility]) [address] , [place], [address], 12/14/2024 08:54:46 12/14/19 25 12/14/2024 COMP METAB OLIC PANEL albumin 3.4 g/dL 3.4-5. 0 Not Available [facility] ([facility]) [address] , [place], [address], 12/14/2024 08:54:46 12/14/19 25 12/14/2024 COMP METAB OLIC PANEL globulin 4.0 Not Available [facility] ([facility]) [address], [place], [address], 12/14/2024 08:54:46 12/14/19 25 12/14/2024 COMP METAB OLIC PANEL alb/glob ratio 0.9 0.7-2 Not Available [facility] ([facility]) [address] , [place], [address], 12/14/2024 08:54:46 12/14/19 25 12/14/2024 COMP METAB OLIC PANEL calcium 9.0 mg/dL 8.5-10 .5 Not Available [facility] ([facility]) [address] , [place], [address], 12/14/2024 08:54:46 12/14/19 25 12/14/2024 COMP METAB OLIC PANEL bilirubin total 1.00 mg/dL 0.10-1 .00 Not Available [facility] ([facility]) [address], [place], [address], 12/14/2024 08:54:46 12/14/19 25 12/14/2024 COMP METAB OLIC PANEL AST (SGOT) 209 U/L 0-37 high Not Available [facility] ([facility]) [address], [place], [address], 12/14/2024 08:54:46 12/14/19 25 12/14/2024 COMP METAB OLIC PANEL ALT (SGPT) 389 U/L 0-65 high Not Available [facility] ([facility]) [address], [place], [address], 12/14/2024 08:54:46 12/14/19 25 12/14/2024 COMP METAB OLIC PANEL alk phosphatase 351 U/L 46-116 high Not Available [facility] ([facility]) [address], [place], [address], 12/14/2024 08:54:46 12/14/19 25 12/14/2024 THYRO ID PANEL W/TSH T3 uptake 34.00 % 24.00- 39.00 Not Available [facility] ([facility]) [address], [place], [address], 12/14/2024 09:06:23 12/14/19 25 12/14/2024 THYRO ID PANEL W/TSH T4 total 7.6 mcg/d L 4.5-12 .1 Not Available [facility] ([facility]) [address] [place], [address], 12/14/2024 09:06:23 12/14/19 25 12/14/2024 THYRO ID PANEL W/TSH free thyroxine index 2.58 1.60-3 .70 Not Available [facility] ([facility]) [address], [place], [address], 12/14/2024 09:06:23 12/14/19 25 12/14/2024 THYRO ID PANEL W/TSH thyroid stim hormone 1.81 mIU/L 0.36-3 .74 Not Available [facility] ([facility]) [address], [place], [address], 12/14/2024 09:06:23 12/14/19 25 12/15/2024 ACUTE HEPAT ITIS PANEL hep A Ab, IgM Negati ve negati ve A negat tony anti- HAV IgM resul t sugge sts no recen t or curre nt HAV infec tion. Not Available [facility] ([facility]) [address] [facility], [place], [address], 12/15/2024 07:11:37 12/14/19 25 12/15/2024 ACUTE HEPAT ITIS PANEL HBsAg screen Negati ve negati ve Not Available [facility] ([facility]) [address] [facility], [place], [address], 12/15/2024 07:11:37 12/14/19 25 12/15/2024 ACUTE HEPAT ITIS PANEL hep B core Ab, IgM Negati ve negati ve Not Available [facility] ([facility]) [address] [facility], [place], [address], 12/15/2024 07:11:37 12/14/19 25 12/15/2024 ACUTE HEPAT ITIS PANEL HCV Ab Non Reacti ve non reacti ve Perfo rmed at: [facility] [address] [place] [address] Lab Direc tor: Seth chu PhD, Phone : [phone] Not Available [facility] ([facility]) [address] [facility], [place], [address], 12/15/2024 07:11:37 12/14/19 25 12/15/2024 ACUTE HEPAT ITIS PANEL hep A Ab, IgM Negati ve negati ve A negat tony anti- HAV IgM resul t sugge sts no recen t or curre nt HAV infec tion. Not Available [facility] ([facility]) [address] [facility], [place], [address], 12/15/2024 07:11:39 12/14/19 25 12/15/2024 ACUTE HEPAT ITIS PANEL HBsAg screen Negati ve negati ve Not Available [facility] ([facility]) [address] [facility], [place], [address], 12/15/2024 07:11:39 12/14/19 25 12/15/2024 ACUTE HEPAT ITIS PANEL hep B core Ab, IgM Negati ve negati ve Not Available [facility] ([facility]) [address] [facility], [place], [address], 12/15/2024 07:11:39 12/14/19 25 12/15/2024 ACUTE HEPAT ITIS PANEL HCV Ab Non Reacti ve non reacti ve [facility]fo rmed at: [facility] [address] [place] [address] Lab Direc tor: Seth chu PhD, Phone : [phone] Not Available [facility] ([facility]) [address] [place], [address], 12/15/2024 07:11:39 12/14/19 25 12/15/2024 ACUTE HEPAT ITIS PANEL interpretati on: Commen t . Not infec carlos with HCV unles s early or acute infec tion is suspe cted (whic h may be delay ed in an immun ocomp romis ed indiv idual ), or other evide nce exist s to indic ate HCV infec tion. [facility]fo [facility]med at: [facility] [address] [place] [address] Lab Direc tor: Seth chu PhD, Phone : [phone] Not Available [facility] ([facility]) [address] [place], [address], 12/15/2024 07:11:39 12/14/19 25 12/15/2024 CORTI GENEVIEVE cortisol 8.2 ug/dL 6.2-19 .4 Pleas e Note: The refer ence inter wen and allan ing for this test is for an AM colle ction . If this is a PM colle ction pleas e use: Corti genevieve PM: 2.3-1 1.9 Perfo [place]med at: [place] [address] Lab Direc tor: Seth chu PhD, Phone : [phone] Not Available [facility] ([facility]) [address], [place], [address], 12/15/2024 08:13:45 12/21/19 25 12/21/2024 CBC AUTO W DIFF WBC 7.9 K/uL 4.0-10 .5 Not Available [facility] ([facility]) [address] [facility], [place], [address], 12/21/2024 08:46:39 12/21/19 25 12/21/2024 CBC AUTO W DIFF RBC 4.7 M/mm3 4.7-6. 1 Not Available [facility] ([facility]) [address] [place], [address], 12/21/2024 08:46:39 12/21/19 25 12/21/2024 CBC AUTO W DIFF HGB 14.0 gm/dL 13.5-1 8.0 Not Available [facility] ([facility]) [address] , [place], [address], 12/21/2024 08:46:39 12/21/19 25 12/21/2024 CBC AUTO W DIFF HCT 43.9 % 42.0-5 2.0 Not Available [facility] ([facility]) [address] , [place], [address], 12/21/2024 08:46:39 12/21/19 25 12/21/2024 CBC AUTO W DIFF MCV 93.8 fL 78-100 Not Available [facility] ([facility]) [address], [place], [address], 12/21/2024 08:46:39 12/21/19 25 12/21/2024 CBC AUTO W DIFF MCH 29.9 pg 27-31 Not Available [facility] ([facility]) [address], [place], [address], 12/21/2024 08:46:39 12/21/19 25 12/21/2024 CBC AUTO W DIFF MCHC 31.9 g/dL 32-36 low Not Available [facility] ([facility]) [address] , [place], [address], 12/21/2024 08:46:39 12/21/19 25 12/21/2024 CBC AUTO W DIFF RDW 14.5 % 11.5-1 4.0 high Not Available [facility] ([facility]) [address] , [place], [address], 12/21/2024 08:46:39 12/21/19 25 12/21/2024 CBC AUTO W DIFF platelet count 204 K/uL 150-45 0 Not Available [facility] ([facility]) [address] , [place], [address], 12/21/2024 08:46:39 12/21/19 25 12/21/2024 CBC AUTO W DIFF MPV 10.7 fL 6-9.5 high Not Available [facility] ([facility]) [address] [place], [address], 12/21/2024 08:46:39 12/21/19 25 12/21/2024 CBC AUTO W DIFF neutrophil% 61.3 % 43-65 Not Available [facility] ([facility]) [address] [place], [address], 12/21/2024 08:46:39 12/21/19 25 12/21/2024 CBC AUTO W DIFF lymphocyte% 27.4 % 20.5-4 5.5 Not Available [facility] ([facility]) [address], [place], [address], 12/21/2024 08:46:39 12/21/19 25 12/21/2024 CBC AUTO W DIFF monocyte% 7.6 % 5.5-11 .7 Not Available [facility] ([facility]) [address] [place], [address], 12/21/2024 08:46:39 12/21/19 25 12/21/2024 CBC AUTO W DIFF eosinophil% 2.8 % 0.9-2. 9 Not Available [facility] ([facility]) [address] [place], [address], 12/21/2024 08:46:39 12/21/19 25 12/21/2024 CBC AUTO W DIFF basophil% 0.6 % 0.2-1. 0 Not Available [facility] ([facility]) [address] [place], [address], 12/21/2024 08:46:39 12/21/19 25 12/21/2024 CBC AUTO W DIFF immature granulocytes % 0.3 % 0.0-0. 8 Not Available [facility] ([facility]) [address] [place], [address], 12/21/2024 08:46:39 12/21/19 25 12/21/2024 CBC AUTO W DIFF nucleated red blood cells % 0.0 % Not Available [facility] ([facility]) [address] [place], [address], 12/21/2024 08:46:39 12/21/19 25 12/21/2024 CBC AUTO W DIFF neutrophil# 4.8 K/uL 2.2-4. 8 Not Available [facility] ([facility]) [address], [place], [address], 12/21/2024 08:46:39 12/21/19 25 12/21/2024 CBC AUTO W DIFF lymphocyte# 2.2 cell/ mcL 1.3-2. 9 Not Available [facility] ([facility]) [address], [place], [address], 12/21/2024 08:46:39 12/21/19 25 12/21/2024 CBC AUTO W DIFF monocyte# 0.6 cell/ mcL 0.3-0. 8 Not Available [facility] ([facility]) [address], [place], [address], 12/21/2024 08:46:39 12/21/19 25 12/21/2024 CBC AUTO W DIFF eosinophil# 0.2 cell/ mcL 0-0.2 Not Available [facility] ([facility]) [address], [place], [address], 12/21/2024 08:46:39 12/21/19 25 12/21/2024 CBC AUTO W DIFF basophil# 0.1 cell/ mcL 0.0-1. 0 Not Available [facility] ([facility]) [address], [place], [address], 12/21/2024 08:46:39 12/21/19 25 12/21/2024 CBC AUTO W DIFF immature gramulocytes # 0.02 K/uL Not Available [facility] ([facility]) [address] [facility], [place], [address], 12/21/2024 08:46:39 12/21/19 25 12/21/2024 CBC AUTO W DIFF nucleated red blood cells # 0.00 K/uL Not Available [facility] ([facility]) [address] [place], [address], 12/21/2024 08:46:39 12/21/19 25 12/21/2024 CBC AUTO W DIFF manual differential NO Not Available [facility] ([facility]) [address] , [place], [address], 12/21/2024 08:46:39 12/21/19 25 12/21/2024 COMP METAB OLIC PANEL sodium 138 mmol/ L 136-14 5 Not Available [facility] ([facility]) [address] , [place], [address], 12/21/2024 09:15:18 12/21/19 25 12/21/2024 COMP METAB OLIC PANEL potassium 4.7 mmol/ L 3.6-5. 0 Not Available [facility] ([facility]) [address] , [place], [address], 12/21/2024 09:15:18 12/21/19 25 12/21/2024 COMP METAB OLIC PANEL chloride 103 mmol/ L 98-107 Not Available [facility] ([facility]) [address] , [place], [address], 12/21/2024 09:15:18 12/21/19 25 12/21/2024 COMP METAB OLIC PANEL carbon dioxide 31.4 mmol/ L 21.0-3 2.0 Not Available [facility] ([facility]) [address] , [place], [address], 12/21/2024 09:15:18 12/21/19 25 12/21/2024 COMP METAB OLIC PANEL anion gap 8.3 Not Available [facility] ([facility]) [address] , [place], [address], 12/21/2024 09:15:18 12/21/19 25 12/21/2024 COMP METAB OLIC PANEL glucose 54 mg/dL 70-120 low Not Available [facility] ([facility]) [address], [place], [address], 12/21/2024 09:15:18 12/21/19 25 12/21/2024 COMP METAB OLIC PANEL BUN 10 mg/dL 7-18 Not Available [facility] ([facility]) [address], [place], [address], 12/21/2024 09:15:18 12/21/19 25 12/21/2024 COMP METAB OLIC PANEL creatinine 1.0 mg/dL 0.6-1. 3 Not Available [facility] ([facility]) [address] , [place], [address], 12/21/2024 09:15:18 12/21/19 25 12/21/2024 COMP METAB [...] gilbert ing kiney funct ion. Not Available [facility] ([facility]) [address] [place], [address], 12/21/2024 09:15:18 12/21/19 25 12/21/2024 COMP METAB OLIC PANEL total protein 7.3 g/dL 6.4-8. 2 Not Available [facility] ([facility]) [address] , [place], [address], 12/21/2024 09:15:18 12/21/19 25 12/21/2024 COMP METAB OLIC PANEL albumin 3.3 g/dL 3.4-5. 0 low Not Available [facility] ([facility]) [address] , [place], [address], 12/21/2024 09:15:18 12/21/19 25 12/21/2024 COMP METAB OLIC PANEL globulin 4.0 Not Available [facility] ([facility]) [address], [place], [address], 12/21/2024 09:15:18 12/21/19 25 12/21/2024 COMP METAB OLIC PANEL alb/glob ratio 0.8 0.7-2 Not Available [facility] ([facility]) [address], [place], [address], 12/21/2024 09:15:18 12/21/19 25 12/21/2024 COMP METAB OLIC PANEL calcium 9.0 mg/dL 8.5-10 .5 Not Available [facility] ([facility]) [address] [facility], [place], [address], 12/21/2024 09:15:18 12/21/19 25 12/21/2024 COMP METAB OLIC PANEL bilirubin total 0.30 mg/dL 0.10-1 .00 Not Available [facility] ([facility]) [address] [facility], [place], [address], 12/21/2024 09:15:18 12/21/19 25 12/21/2024 COMP METAB OLIC PANEL AST (SGOT) 15 U/L 0-37 Not Available [facility] ([facility]) [address], [place], [address], 12/21/2024 09:15:18 12/21/19 25 12/21/2024 COMP METAB OLIC PANEL ALT (SGPT) 59 U/L 0-65 Not Available [facility] ([facility]) [address], [place], [address], 12/21/2024 09:15:18 12/21/19 25 12/21/2024 COMP METAB OLIC PANEL alk phosphatase 184 U/L 46-116 high Not Available [facility] ([facility]) [address], [place], [address], 12/21/2024 09:15:18 12/21/19 25 12/21/2024 MAGNE SIUM magnesium 2.2 mg/dL 1.8-2. 4 Not Available [facility] ([facility]) [address] [facility], [place], [address], 12/21/2024 09:15:19 12/21/19 25 12/21/2024 THYRO ID PANEL W/TSH T3 uptake 33.00 % 24.00- 39.00 Not Available [facility] ([facility]) [address] [facility], [place], [address], 12/21/2024 09:32:17 12/21/19 25 12/21/2024 THYRO ID PANEL W/TSH T4 total 7.0 mcg/d L 4.5-12 .1 Not Available [facility] ([facility]) [address] [place], [address], 12/21/2024 09:32:17 12/21/19 25 12/21/2024 THYRO ID PANEL W/TSH free thyroxine index 2.31 1.60-3 .70 Not Available [facility] ([facility]) [address] [place], [address], 12/21/2024 09:32:17 12/21/19 25 12/21/2024 THYRO ID PANEL W/TSH thyroid stim hormone 1.65 mIU/L 0.36-3 .74 Not Available [facility] ([facility]) [address] [place], [address], 12/21/2024 09:32:17 12/21/19 25 12/22/2024 CORTI GENEVIEVE cortisol 9.4 ug/dL 6.2-19 .4 Pleas e Note: The refer ence inter wen and allan ing for this test is for an AM colle ction . If this is a PM colle ction pleas e use: Corti genevieve PM: 2.3-1 1.9 Perfo rmed at: - [facility] [address] [address] Lab Direc tor: Seth chu PhD, Phone : [phone] Not Available [facility] ([facility]) [address] , [place], [address], 12/22/2024 08:13:15 01/12/20 25 01/11/2025 CBC AUTO W DIFF WBC 8.0 K/uL 4.0-10 .5 Not Available [facility] ([facility]) [address] , [place], [address], 01/11/2025 09:16:39 01/12/20 25 01/11/2025 CBC AUTO W DIFF RBC 4.8 M/mm3 4.7-6. 1 Not Available [facility] ([facility]) [address] , [place], [address], 01/11/2025 09:16:39 01/12/20 25 01/11/2025 CBC AUTO W DIFF HGB 14.3 gm/dL 13.5-1 8.0 Not Available [facility] ([facility]) [address] , [place], [address], 01/11/2025 09:16:39 01/12/20 25 01/11/2025 CBC AUTO W DIFF HCT 43.7 % 42.0-5 2.0 Not Available [facility] ([facility]) [address] , [place], [address], 01/11/2025 09:16:39 01/12/20 25 01/11/2025 CBC AUTO W DIFF MCV 91.6 fL 78-100 Not Available [facility] ([facility]) [address] , [place], [address], 01/11/2025 09:16:39 01/12/20 25 01/11/2025 CBC AUTO W DIFF MCH 30.0 pg 27-31 Not Available [facility] ([facility]) [address] , [place], [address], 01/11/2025 09:16:39 01/12/20 25 01/11/2025 CBC AUTO W DIFF MCHC 32.7 g/dL 32-36 Not Available [facility] ([facility]) [address] , [place], [address], 01/11/2025 09:16:39 01/12/20 25 01/11/2025 CBC AUTO W DIFF RDW 14.0 % 11.5-1 4.0 Not Available [facility] ([facility]) [address] , [place], [address], 01/11/2025 09:16:39 01/12/20 25 01/11/2025 CBC AUTO W DIFF platelet count 183 K/uL 150-45 0 Not Available [facility] ([facility]) [address] , [place], [address], 01/11/2025 09:16:39 01/12/20 25 01/11/2025 CBC AUTO W DIFF MPV 10.2 fL 6-9.5 high Not Available [facility] ([facility]) [address] , [place], [address], 01/11/2025 09:16:39 01/12/20 25 01/11/2025 CBC AUTO W DIFF neutrophil% 69.2 % 43-65 high Not Available [facility] ([facility]) [address] [place], [address], 01/11/2025 09:16:39 01/12/20 25 01/11/2025 CBC AUTO W DIFF lymphocyte% 23.3 % 20.5-4 5.5 Not Available [facility] ([facility]) [address] , [place], [address], 01/11/2025 09:16:39 01/12/20 25 01/11/2025 CBC AUTO W DIFF monocyte% 5.0 % 5.5-11 .7 low Not Available [facility] ([facility]) [address] [facility], [place], [address], 01/11/2025 09:16:39 01/12/20 25 01/11/2025 CBC AUTO W DIFF eosinophil% 1.8 % 0.9-2. 9 Not Available [facility] ([facility]) [address] [place], [address], 01/11/2025 09:16:39 01/12/20 25 01/11/2025 CBC AUTO W DIFF basophil% 0.3 % 0.2-1. 0 Not Available [facility] ([facility]) [address] [place], [address], 01/11/2025 09:16:39 01/12/20 25 01/11/2025 CBC AUTO W DIFF immature granulocytes % 0.4 % 0.0-0. 8 Not Available [facility] ([facility]) [address] [place], [address], 01/11/2025 09:16:39 01/12/20 25 01/11/2025 CBC AUTO W DIFF nucleated red blood cells % 0.0 % Not Available [facility] ([facility]) [address] [place], [address], 01/11/2025 09:16:39 01/12/20 25 01/11/2025 CBC AUTO W DIFF neutrophil# 5.5 K/uL 2.2-4. 8 high Not Available [facility] ([facility]) [address] [place], [address], 01/11/2025 09:16:39 01/12/20 25 01/11/2025 CBC AUTO W DIFF lymphocyte# 1.9 cell/ mcL 1.3-2. 9 Not Available [facility] ([facility]) [address], [place], [address], 01/11/2025 09:16:39 01/12/20 25 01/11/2025 CBC AUTO W DIFF monocyte# 0.4 cell/ mcL 0.3-0. 8 Not Available [facility] ([facility]) [address], [place], [address], 01/11/2025 09:16:39 01/12/20 25 01/11/2025 CBC AUTO W DIFF eosinophil# 0.1 cell/ mcL 0-0.2 Not Available [facility] ([facility]) [address], [place], [address], 01/11/2025 09:16:39 01/12/20 25 01/11/2025 CBC AUTO W DIFF basophil# 0.0 cell/ mcL 0.0-1. 0 Not Available [facility] ([facility]) [address], [place], [address], 01/11/2025 09:16:39 01/12/20 25 01/11/2025 CBC AUTO W DIFF immature gramulocytes # 0.03 K/uL Not Available [facility] ([facility]) [address] [facility], [place], [address], 01/11/2025 09:16:39 01/12/20 25 01/11/2025 CBC AUTO W DIFF nucleated red blood cells # 0.00 K/uL Not Available [facility] ([facility]) [address] [facility], [place], [address], 01/11/2025 09:16:39 01/12/20 25 01/11/2025 CBC AUTO W DIFF manual differential NO Not Available [facility]) [address] [facility] [place], [address], 01/11/2025 09:16:39 01/12/20 25 01/11/2025 COMP METAB OLIC PANEL sodium 143 mmol/ L 136-14 5 Not Available [facility] ([facility]) [address] , [place], [address], 01/11/2025 09:41:28 01/12/20 25 01/11/2025 COMP METAB OLIC PANEL potassium 4.1 mmol/ L 3.6-5. 0 Not Available [facility] ([facility]) [address], [place], [address], 01/11/2025 09:41:28 01/12/20 25 01/11/2025 COMP METAB OLIC PANEL chloride 102 mmol/ L 98-107 Not Available [facility] ([facility]) [address], [place], [address], 01/11/2025 09:41:28 01/12/20 25 01/11/2025 COMP METAB OLIC PANEL carbon dioxide 29.2 mmol/ L 21.0-3 2.0 Not Available [facility] ([facility]) [address] , [place], [address], 01/11/2025 09:41:28 01/12/20 25 01/11/2025 COMP METAB OLIC PANEL anion gap 15.9 Not Available [facility] ([facility]) [address] , [place], [address], 01/11/2025 09:41:28 01/12/20 25 01/11/2025 COMP METAB OLIC PANEL glucose 77 mg/dL 70-120 Not Available [facility] ([facility]) [address] , [place], [address], 01/11/2025 09:41:28 01/12/20 25 01/11/2025 COMP METAB OLIC PANEL BUN 18 mg/dL 7-18 Not Available [facility] ([facility]) [address], [place], [address], 01/11/2025 09:41:28 01/12/20 25 01/11/2025 COMP METAB OLIC PANEL creatinine 1.0 mg/dL 0.6-1. 3 Not Available [facility] ([facility]) [address], [place], [address], 01/11/2025 09:41:28 01/12/20 25 01/11/2025 COMP METAB [...] gilbert ing kiney funct ion. Not Available [facility] ([facility]) [address], [place], [address], 01/11/2025 09:41:28 01/12/2001/11/2025 COMP METAB OLIC PANEL osmolality (calculated) 298 mOsm/ kg 275-30 1 OSMOL ALITY IS A CALCU LATIO N UTILI ZING THE SERUM /PLAS MA SODIU M, GLUCO SE AND UREA NITRO GEN (BUN) LEVEL S. FOR THE MOST ACCUR ATE RESUL T A MEASU RED SERUM OSMOL ALITY IS SUGGE STED. Not Available [facility] ([facility]) [address], [place], [address], 01/11/2025 09:41:28 01/12/2001/11/2025 COMP METAB OLIC PANEL total protein 7.3 g/dL 6.4-8. 2 Not Available [facility] ([facility]) [address], [place], [address], 01/11/2025 09:41:28 01/12/20 25 01/11/2025 COMP METAB OLIC PANEL albumin 3.3 g/dL 3.4-5. 0 low Not Available [facility] ([facility]) [address] , [place], [address], 01/11/2025 09:41:28 01/12/20 25 01/11/2025 COMP METAB OLIC PANEL globulin 4.0 Not Available [facility] ([facility]) [address] , [place], [address], 01/11/2025 09:41:28 01/12/20 25 01/11/2025 COMP METAB OLIC PANEL alb/glob ratio 0.8 0.7-2 Not Available [facility] ([facility]) [address], [place], [address], 01/11/2025 09:41:28 01/12/20 25 01/11/2025 COMP METAB OLIC PANEL calcium 9.3 mg/dL 8.5-10 .5 Not Available [facility] ([facility]) [address], [place], [address], 01/11/2025 09:41:28 01/12/20 25 01/11/2025 COMP METAB OLIC PANEL bilirubin total 0.30 mg/dL 0.10-1 .00 Not Available [facility] ([facility]) [address] , [place], [address], 01/11/2025 09:41:28 01/12/20 25 01/11/2025 COMP METAB OLIC PANEL AST (SGOT) 13 U/L 0-37 Not Available [facility] ([facility]) [address], [place], [address], 01/11/2025 09:41:28 01/12/20 25 01/11/2025 COMP METAB OLIC PANEL ALT (SGPT) 13 U/L 0-65 Not Available [facility] ([facility]) [address], [place], [address], 01/11/2025 09:41:28 01/12/20 25 01/11/2025 COMP METAB OLIC PANEL alk phosphatase 137 U/L 46-116 high Not Available [facility] ([facility]) [address], [place], [address], 01/11/2025 09:41:28 01/12/20 25 01/11/2025 THYRO ID PANEL W/TSH T3 uptake 32.00 % 24.00- 39.00 Not Available [facility] ([facility]) [address], [place], [address], 01/11/2025 10:30:29 01/12/20 25 01/11/2025 THYRO ID PANEL W/TSH T4 total 7.9 mcg/d L 4.5-12 .1 Not Available [facility] ([facility]) [address] , [place], [address], 01/11/2025 10:30:29 01/12/20 25 01/11/2025 THYRO ID PANEL W/TSH free thyroxine index 2.53 1.60-3 .70 Not Available [facility] ([facility]) [address], [place], [address], 01/11/2025 10:30:29 01/12/20 25 01/11/2025 THYRO ID PANEL W/TSH thyroid stim hormone 1.93 mIU/L 0.36-3 .74 Not Available [facility] ([facility]) [address] [place], [address], 01/11/2025 10:30:29 01/12/20 25 01/11/2025 VITAM IN B12 vitamin B12 716 pg/mL 193-98 6 *Note : Refer ence Steve hood New Test Metho d in use. Not Available [facility] ([facility]) [address], [place], [address], 01/11/2025 12:27:31 01/12/20 25 01/11/2025 VITAM IN B12 folate (folic acid), serum 14.3 NG/mL 8.6-58 .9 *Note : Refer emileee Inter wen hood New Test Metho d in use. Not Available [facility] ([facility]) [address] , [place], [address], 01/11/2025 12:27:31 01/12/20 25 01/12/2025 CORTI GENEVIEVE cortisol 8.6 ug/dL 6.2-19 .4 Pleas e Note: The refer ence inter wen and allan ing for this test is for an AM colle ction . If this is a PM colle ction pleas e use: Corti genevieve PM: 2.3-1 1.9 Perfo rmed at: [facility] [address] [address] Lab Direc tor: Seth chu PhD, Phone : [phone] Not Available [facility] ([facility]) [address] , [place], [address], 01/12/2025 08:15:51 02/02/20 25 02/01/2025 CBC AUTO W DIFF WBC 6.4 K/uL 4.0-10 .5 Not Available [facility] ([facility]) [address] , [place], [address], 02/01/2025 09:15:02 02/02/20 25 02/01/2025 CBC AUTO W DIFF RBC 4.6 M/mm3 4.7-6. 1 low Not Available [facility] ([facility]) [address] , [place], [address], 02/01/2025 09:15:02 02/02/20 25 02/01/2025 CBC AUTO W DIFF HGB 13.6 gm/dL 13.5-1 8.0 Not Available [facility] ([facility]) [address], [place], [address], 02/01/2025 09:15:02 02/02/20 25 02/01/2025 CBC AUTO W DIFF HCT 41.4 % 42.0-5 2.0 low Not Available [facility] ([facility]) [address], [place], [address], 02/01/2025 09:15:02 02/02/20 25 02/01/2025 CBC AUTO W DIFF MCV 91.0 fL 78-100 Not Available [facility] ([facility]) [address], [place], [address], 02/01/2025 09:15:02 02/02/20 25 02/01/2025 CBC AUTO W DIFF MCH 29.9 pg 27-31 Not Available [facility] ([facility]) [address] , [place], [address], 02/01/2025 09:15:02 02/02/20 25 02/01/2025 CBC AUTO W DIFF MCHC 32.9 g/dL 32-36 Not Available [facility] ([facility]) [address], [place], [address], 02/01/2025 09:15:02 02/02/20 25 02/01/2025 CBC AUTO W DIFF RDW 13.7 % 11.5-1 4.0 Not Available [facility] ([facility]) [address] , [place], [address], 02/01/2025 09:15:02 02/02/20 25 02/01/2025 CBC AUTO W DIFF platelet count 179 K/uL 150-45 0 Not Available [facility] ([facility]) [address] , [place], [address], 02/01/2025 09:15:02 02/02/20 25 02/01/2025 CBC AUTO W DIFF MPV 10.3 fL 6-9.5 high Not Available [facility] ([facility]) [address], [place], [address], 02/01/2025 09:15:02 02/02/20 25 02/01/2025 CBC AUTO W DIFF neutrophil% 63.2 % 43-65 Not Available [facility] ([facility]) [address], [place], [address], 02/01/2025 09:15:02 02/02/20 25 02/01/2025 CBC AUTO W DIFF lymphocyte% 26.4 % 20.5-4 5.5 Not Available [facility] ([facility]) [address] [facility], [place], [address], 02/01/2025 09:15:02 02/02/20 25 02/01/2025 CBC AUTO W DIFF monocyte% 6.2 % 5.5-11 .7 Not Available [facility] ([facility]) [address], [place], [address], 02/01/2025 09:15:02 02/02/20 25 02/01/2025 CBC AUTO W DIFF eosinophil% 3.4 % 0.9-2. 9 high Not Available [facility] ([facility]) [address], [place], [address], 02/01/2025 09:15:02 02/02/20 25 02/01/2025 CBC AUTO W DIFF basophil% 0.3 % 0.2-1. 0 Not Available [facility] ([facility]) [address] [place], [address], 02/01/2025 09:15:02 02/02/20 25 02/01/2025 CBC AUTO W DIFF immature granulocytes % 0.5 % 0.0-0. 8 Not Available [facility] ([facility]) [address] [place], [address], 02/01/2025 09:15:02 02/02/20 25 02/01/2025 CBC AUTO W DIFF nucleated red blood cells % 0.0 % Not Available [facility] ([facility]) [address], [place], [address], 02/01/2025 09:15:02 02/02/20 25 02/01/2025 CBC AUTO W DIFF neutrophil# 4.1 K/uL 2.2-4. 8 Not Available [facility] ([facility]) [address], [place], [address], 02/01/2025 09:15:02 02/02/20 25 02/01/2025 CBC AUTO W DIFF lymphocyte# 1.7 cell/ mcL 1.3-2. 9 Not Available [facility] ([facility]) [address] [facility], [place], [address], 02/01/2025 09:15:02 02/02/20 25 02/01/2025 CBC AUTO W DIFF monocyte# 0.4 cell/ mcL 0.3-0. 8 Not Available [facility] ([facility]) [address] [facility], [place], [address], 02/01/2025 09:15:02 02/02/20 25 02/01/2025 CBC AUTO W DIFF eosinophil# 0.2 cell/ mcL 0-0.2 Not Available [facility] ([facility]) [address] [place], [address], 02/01/2025 09:15:02 02/02/20 25 02/01/2025 CBC AUTO W DIFF basophil# 0.0 cell/ mcL 0.0-1. 0 Not Available [facility] ([facility]) [address] [facility], [place], [address], 02/01/2025 09:15:02 02/02/20 25 02/01/2025 CBC AUTO W DIFF immature gramulocytes # 0.03 K/uL Not Available [facility] ([facility]) [address], [place], [address], 02/01/2025 09:15:02 02/02/20 25 02/01/2025 CBC AUTO W DIFF nucleated red blood cells # 0.00 K/uL Not Available [facility] ([facility]) [address], [place], [address], 02/01/2025 09:15:02 02/02/20 25 02/01/2025 CBC AUTO W DIFF manual differential NO Not Available [facility] ([facility]) [address], [place], [address], 02/01/2025 09:15:02 02/02/20 25 02/01/2025 COMP METAB OLIC PANEL sodium 138 mmol/ L 136-14 5 Not Available [facility] ([facility]) [address], [place], [address], 02/01/2025 09:33:09 02/02/20 25 02/01/2025 COMP METAB OLIC PANEL potassium 4.1 mmol/ L 3.6-5. 0 Not Available [facility] ([facility]) [address], [place], [address], 02/01/2025 09:33:09 02/02/20 25 02/01/2025 COMP METAB OLIC PANEL chloride 101 mmol/ L 98-107 Not Available [facility] ([facility]) [address], [place], [address], 02/01/2025 09:33:09 02/02/20 25 02/01/2025 COMP METAB OLIC PANEL carbon dioxide 31.1 mmol/ L 21.0-3 2.0 Not Available [facility] ([facility]) [address], [place], [address], 02/01/2025 09:33:09 02/02/20 25 02/01/2025 COMP METAB OLIC PANEL anion gap 10.0 Not Available [facility] ([facility]) [address], [place], [address], 02/01/2025 09:33:09 02/02/20 25 02/01/2025 COMP METAB OLIC PANEL glucose 65 mg/dL 70-120 low Not Available [facility] ([facility]) [address], [place], [address], 02/01/2025 09:33:09 02/02/20 25 02/01/2025 COMP METAB OLIC PANEL BUN 12 mg/dL 7-18 Not Available [facility] ([facility]) [address], [place], [address], 02/01/2025 09:33:09 02/02/20 25 02/01/2025 COMP METAB OLIC PANEL creatinine 1.2 mg/dL 0.6-1. 3 Not Available [facility] ([facility]) [address], [place], [address], 02/01/2025 09:33:09 02/02/20 25 02/01/2025 COMP METAB [...] gilbert ing kiney funct ion. Not Available [facility] ([facility]) [address] , [place], [address], 02/01/2025 09:33:09 02/02/20 25 02/01/2025 COMP METAB OLIC PANEL osmolality (calculated) 285 mOsm/ kg 275-30 1 OSMOL ALITY IS A CALCU LATIO N UTILI ZING THE SERUM /PLAS MA SODIU M, GLUCO SE AND UREA NITRO GEN (BUN) LEVEL S. FOR THE MOST ACCUR ATE RESUL T A MEASU RED SERUM OSMOL ALITY IS TUTU UNDERWOODD. Not Available [facility] ([facility]) [address], [place], [address], 02/01/2025 09:33:09 02/02/20 25 02/01/2025 COMP METAB OLIC PANEL total protein 7.2 g/dL 6.4-8. 2 Not Available [facility] ([facility]) [address] [facility], [place], [address], 02/01/2025 09:33:09 02/02/20 25 02/01/2025 COMP METAB OLIC PANEL albumin 3.7 g/dL 3.4-5. 0 Not Available [facility] ([facility]) [address], [place], [address], 02/01/2025 09:33:09 02/02/20 25 02/01/2025 COMP METAB OLIC PANEL globulin 3.5 Not Available [facility] ([facility]) [address] [facility], [place], [address], 02/01/2025 09:33:09 02/02/20 25 02/01/2025 COMP METAB OLIC PANEL alb/glob ratio 1.1 0.7-2 Not Available [facility] ([facility]) [address], [place], [address], 02/01/2025 09:33:09 02/02/20 25 02/01/2025 COMP METAB OLIC PANEL calcium 8.5 mg/dL 8.5-10 .5 Not Available [facility] ([facility]) [address], [place], [address], 02/01/2025 09:33:09 02/02/20 25 02/01/2025 COMP METAB OLIC PANEL bilirubin total 0.30 mg/dL 0.10-1 .00 Not Available [facility] ([facility]) [address], [place], [address], 02/01/2025 09:33:09 02/02/20 25 02/01/2025 COMP METAB OLIC PANEL AST (SGOT) 14 U/L 0-37 Not Available [facility] ([facility]) [address], [place], [address], 02/01/2025 09:33:09 02/02/20 25 02/01/2025 COMP METAB OLIC PANEL ALT (SGPT) 16 U/L 0-65 Not Available [facility] ([facility]) [address] [place], [address], 02/01/2025 09:33:09 02/02/20 25 02/01/2025 COMP METAB OLIC PANEL alk phosphatase 132 U/L 46-116 high Not Available [facility] ([facility]) [address] , [place], [address], 02/01/2025 09:33:09 02/02/20 25 02/01/2025 THYRO ID PANEL W/TSH T3 uptake 31.00 % 24.00- 39.00 Not Available [facility] ([facility]) [address], [place], [address], 02/01/2025 09:33:11 02/02/20 25 02/01/2025 THYRO ID PANEL W/TSH T4 total 6.5 mcg/d L 4.5-12 .1 Not Available [facility] ([facility]) [address] [place], [address], 02/01/2025 09:33:11 02/02/20 25 02/01/2025 THYRO ID PANEL W/TSH free thyroxine index 2.02 1.60-3 .70 Not Available [facility] ([facility]) [address] [place], [address], 02/01/2025 09:33:11 02/02/20 25 02/01/2025 THYRO ID PANEL W/TSH thyroid stim hormone 2.10 mIU/L 0.36-3 .74 Not Available [facility] ([facility]) [address] , [place], [address], 02/01/2025 09:33:11 02/02/20 25 02/01/2025 MAGNE SIUM magnesium 1.8 mg/dL 1.8-2. 4 Not Available [facility] ([facility]) [address], [place], [address], 02/01/2025 09:55:48 02/02/20 25 02/01/2025 VITAM IN B12 vitamin B12 602 pg/mL 193-98 6 *Note : Refer miguelangel May. New Test Metho d in use. Not Available [facility] ([facility]) [address], [place], [address], 02/01/2025 10:28:32 02/02/20 25 02/01/2025 VITAM IN B12 folate (folic acid), serum 9.4 NG/mL 8.6-58 .9 *Note : Refer miguelangel May. New Test Metho d in use. Not Available [facility] ([facility]) [address], [place], [address], 02/01/2025 10:28:32 02/02/20 25 02/02/2025 CORTI GENEVIEVE cortisol 12.3 ug/dL 6.2-19 .4 Pleas e Note: The refer miguelangel carver and allan ing for this test is for an AM colle ction . If this is a PM colle ction pleas e use: Corti genevieve PM: 2.3-1 1.9 Perfo rmed at: - [facility] [address] [place] [address] Lab Direc tor: Seth chu PhD, Phone : [phone] Not Available [facility] ([facility]) [address], [place], [address], 02/02/2025 06:11:36 02/23/20 25 02/22/2025 CBC AUTO W DIFF WBC 7.6 K/uL 4.0-10 .5 Not Available [facility] ([facility]) [address], [place], [address], 02/22/2025 08:44:25 02/23/20 25 02/22/2025 CBC AUTO W DIFF RBC 4.8 M/mm3 4.7-6. 1 Not Available [facility] ([facility]) [address], [place], [address], 02/22/2025 08:44:25 02/23/20 25 02/22/2025 CBC AUTO W DIFF HGB 14.2 gm/dL 13.5-1 8.0 Not Available [facility] ([facility]) [address], [place], [address], 02/22/2025 08:44:25 02/23/20 25 02/22/2025 CBC AUTO W DIFF HCT 43.2 % 42.0-5 2.0 Not Available [facility] ([facility]) [address], [place], [address], 02/22/2025 08:44:25 02/23/20 25 02/22/2025 CBC AUTO W DIFF MCV 89.6 fL 78-100 Not Available [facility] ([facility]) [address], [place], [address], 02/22/2025 08:44:25 02/23/20 25 02/22/2025 CBC AUTO W DIFF MCH 29.5 pg 27-31 Not Available [facility] ([facility]) [address], [place], [address], 02/22/2025 08:44:25 02/23/20 25 02/22/2025 CBC AUTO W DIFF MCHC 32.9 g/dL 32-36 Not Available [facility] ([facility]) [address] , [place], [address], 02/22/2025 08:44:25 02/23/20 25 02/22/2025 CBC AUTO W DIFF RDW 13.4 % 11.5-1 4.0 Not Available [facility] ([facility]) [address] , [place], [address], 02/22/2025 08:44:25 02/23/20 25 02/22/2025 CBC AUTO W DIFF platelet count 171 K/uL 150-45 0 Not Available [facility] ([facility]) [address], [place], [address], 02/22/2025 08:44:25 02/23/20 25 02/22/2025 CBC AUTO W DIFF MPV 10.7 fL 6-9.5 high Not Available [facility] ([facility]) [address], [place], [address], 02/22/2025 08:44:25 02/23/20 25 02/22/2025 CBC AUTO W DIFF neutrophil% 63.7 % 43-65 Not Available [facility] ([facility]) [address] [place], [address], 02/22/2025 08:44:25 02/23/20 25 02/22/2025 CBC AUTO W DIFF lymphocyte% 26.4 % 20.5-4 5.5 Not Available [facility] ([facility]) [address] [place], [address], 02/22/2025 08:44:25 02/23/20 25 02/22/2025 CBC AUTO W DIFF monocyte% 5.9 % 5.5-11 .7 Not Available [facility] ([facility]) [address], [place], [address], 02/22/2025 08:44:25 02/23/20 25 02/22/2025 CBC AUTO W DIFF eosinophil% 3.4 % 0.9-2. 9 high Not Available [facility] ([facility]) [address], [place], [address], 02/22/2025 08:44:25 02/23/20 25 02/22/2025 CBC AUTO W DIFF basophil% 0.3 % 0.2-1. 0 Not Available [facility] ([facility]) [address] [facility], [place], [address], 02/22/2025 08:44:25 02/23/20 25 02/22/2025 CBC AUTO W DIFF immature granulocytes % 0.3 % 0.0-0. 8 Not Available [facility] ([facility]) [address] [facility], [place], [address], 02/22/2025 08:44:25 02/23/20 25 02/22/2025 CBC AUTO W DIFF nucleated red blood cells % 0.0 % Not Available [facility] ([facility]) [address] [facility], [place], [address], 02/22/2025 08:44:25 02/23/20 25 02/22/2025 CBC AUTO W DIFF neutrophil# 4.8 K/uL 2.2-4. 8 Not Available [facility] ([facility]) [address] [facility], [place], [address], 02/22/2025 08:44:25 02/23/20 25 02/22/2025 CBC AUTO W DIFF lymphocyte# 2.0 cell/ mcL 1.3-2. 9 Not Available [facility] ([facility]) [address] [facility], [place], [address], 02/22/2025 08:44:25 02/23/20 25 02/22/2025 CBC AUTO W DIFF monocyte# 0.5 cell/ mcL 0.3-0. 8 Not Available [facility] ([facility]) [address] , [place], [address], 02/22/2025 08:44:25 02/23/20 25 02/22/2025 CBC AUTO W DIFF eosinophil# 0.3 cell/ mcL 0-0.2 high Not Available [facility] ([facility]) [address] , [place], [address], 02/22/2025 08:44:25 02/23/20 25 02/22/2025 CBC AUTO W DIFF basophil# 0.0 cell/ mcL 0.0-1. 0 Not Available [facility] ([facility]) [address], [place], [address], 02/22/2025 08:44:25 02/23/20 25 02/22/2025 CBC AUTO W DIFF immature gramulocytes # 0.02 K/uL Not Available [facility] ([facility]) [address], [place], [address], 02/22/2025 08:44:25 02/23/20 25 02/22/2025 CBC AUTO W DIFF nucleated red blood cells # 0.00 K/uL Not Available [facility] ([facility]) [address], [place], [address], 02/22/2025 08:44:25 02/23/20 25 02/22/2025 CBC AUTO W DIFF manual differential NO Not Available [facility] ([facility]) [address] , [place], [address], 02/22/2025 08:44:25 02/23/20 25 02/22/2025 COMP METAB OLIC PANEL sodium 140 mmol/ L 136-14 5 Not Available [facility] ([facility]) [address] , [place], [address], 02/22/2025 09:03:10 02/23/20 25 02/22/2025 COMP METAB OLIC PANEL potassium 3.7 mmol/ L 3.6-5. 0 Not Available [facility] ([facility]) [address], [place], [address], 02/22/2025 09:03:10 02/23/20 25 02/22/2025 COMP METAB OLIC PANEL chloride 100 mmol/ L 98-107 Not Available [facility] ([facility]) [address], [place], [address], 02/22/2025 09:03:10 02/23/20 25 02/22/2025 COMP METAB OLIC PANEL carbon dioxide 33.0 mmol/ L 21.0-3 2.0 high Not Available [facility] ([facility]) [address], [place], [address], 02/22/2025 09:03:10 02/23/20 25 02/22/2025 COMP METAB OLIC PANEL anion gap 10.7 Not Available [facility] ([facility]) [address], [place], [address], 02/22/2025 09:03:10 02/23/20 25 02/22/2025 COMP METAB OLIC PANEL glucose 143 mg/dL 70-120 high Not Available [facility] ([facility]) [address] [place], [address], 02/22/2025 09:03:10 02/23/20 25 02/22/2025 COMP METAB OLIC PANEL BUN 17 mg/dL 7-18 Not Available [facility] ([facility]) [address] [place], [address], 02/22/2025 09:03:10 02/23/20 25 02/22/2025 COMP METAB OLIC PANEL creatinine 1.2 mg/dL 0.6-1. 3 Not Available [facility] ([facility]) [address], [place], [address], 02/22/2025 09:03:10 02/23/20 25 02/22/2025 COMP METAB [...] gilbert ing kiney funct ion. Not Available [facility] ([facility]) [address], [place], [address], 02/22/2025 09:03:10 02/23/20 25 02/22/2025 COMP METAB OLIC PANEL osmolality (calculated) 295 mOsm/ kg 275-30 1 OSMOL ALITY IS A CALCU LATIO N UTILI ZING THE SERUM /PLAS MA SODIU M, GLUCO SE AND UREA NITRO GEN (BUN) LEVEL S. FOR THE MOST ACCUR ATE RESUL T A MEASU RED SERUM OSMOL ALITY IS SUGGE STED. Not Available [facility] ([facility]) [address], [place], [address], 02/22/2025 09:03:10 02/23/20 25 02/22/2025 COMP METAB OLIC PANEL total protein 7.5 g/dL 6.4-8. 2 Not Available [facility] ([facility]) [address], [place], [address], 02/22/2025 09:03:10 02/23/20 25 02/22/2025 COMP METAB OLIC PANEL albumin 3.4 g/dL 3.4-5. 0 Not Available [facility] ([facility]) [address], [place], [address], 02/22/2025 09:03:10 02/23/20 25 02/22/2025 COMP METAB OLIC PANEL globulin 4.1 Not Available [facility] ([facility]) [address] , [place], [address], 02/22/2025 09:03:10 02/23/20 25 02/22/2025 COMP METAB OLIC PANEL alb/glob ratio 0.8 0.7-2 Not Available [facility] ([facility]) [address], [place], [address], 02/22/2025 09:03:10 02/23/20 25 02/22/2025 COMP METAB OLIC PANEL calcium 9.3 mg/dL 8.5-10 .5 Not Available [facility] ([facility]) [address], [place], [address], 02/22/2025 09:03:10 02/23/20 25 02/22/2025 COMP METAB OLIC PANEL bilirubin total 0.70 mg/dL 0.10-1 .00 Not Available [facility] ([facility]) [address], [place], [address], 02/22/2025 09:03:10 02/23/20 25 02/22/2025 COMP METAB OLIC PANEL AST (SGOT) 15 U/L 0-37 Not Available [facility] ([facility]) [address], [place], [address], 02/22/2025 09:03:10 02/23/20 25 02/22/2025 COMP METAB OLIC PANEL ALT (SGPT) 25 U/L 0-65 Not Available [facility] ([facility]) [address], [place], [address], 02/22/2025 09:03:10 02/23/20 25 02/22/2025 COMP METAB OLIC PANEL alk phosphatase 150 U/L 46-116 high Not Available [facility] ([facility]) [address] , [place], [address], 02/22/2025 09:03:10 02/23/2002/22/2025 THYRO ID PANEL W/TSH T3 uptake 33.00 % 24.00- 39.00 Not Available [facility] ([facility]) [address], [place], [address], 02/22/2025 09:03:13 02/23/2002/22/2025 THYRO ID PANEL W/TSH T4 total 7.0 mcg/d L 4.5-12 .1 Not Available [facility] ([facility]) [address] [facility], [place], [address], 02/22/2025 09:03:13 02/23/20 25 02/22/2025 THYRO ID PANEL W/TSH free thyroxine index 2.31 1.60-3 .70 Not Available [facility] ([facility]) [address] [facility], [place], [address], 02/22/2025 09:03:13 02/23/2002/22/2025 THYRO ID PANEL W/TSH thyroid stim hormone 2.86 mIU/L 0.36-3 .74 Not Available [facility] ([facility]) [address] [facility], [place], [address], 02/22/2025 09:03:13 02/23/20 25 02/23/2025 CORTI GENEVIEVE cortisol 9.0 ug/dL 6.2-19 .4 Pleas e Note: The refer ence inter wen and allan ing for this test is for an AM colle ction . If this is a PM colle ction pleas e use: Corti genevieve PM: 2.3-1 1.9 [facility] [address] [id number] Lab Direc tor: Seth chu PhD, Phone : [phone] Not Available [facility] ([facility]) [address], [place], [address], 02/23/2025 08:13:26 12/17/19 25 12/15/2024 US, abdom en [facility] Hospit [facility] [address] [facility] [address] [place] [address] Phone: Fax: Name: SUSANNAH KIM Exam Date: : 1944 Age 79 years Gender : M Access ion: [id number] Physic cindy: SHELLI MCGOVERNi ty: [facility] Facili ty HSV: Outpat ient Exam: ABDOME N US A US ABDOME N 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 INDICA TION: elevat ion of levels of liver transa minase levels TECHNI QUE: Limite d graysc romario ultras ound of the abdome n with color Dopple r as jayme gonzalez. COMPAR BEN: PET/CT 025. FINDIN GS: * Pancre as: Predom inantl [...] bowel gas. * Ascite s: None. IMPRES ANTON: 1. Melanie kaur is withou t findin [...] Chavez 025 Thank you for referr ing CASHSARI ARLENE HERNANDEZMIREYA Hang to [facility] Hospit al. Legall y authen ticate d by OLIMPIA SMITH 12-15 08:48: 02 CC'ed Logic: Orderi ng Provid er: ELISEO MCCANN Attend ing Provid er: ELISEO MCCANN Referr ing Provid er: ELISEO MCCANN Admitt ing Provid er: ELISEO MCCANN [address] - Physical Therapy [address] [place] [address], [address], 12/18/2024 12:35:05 12/21/19 25 12/21/2024 ABD flat uprig ht [facility] [address] [place] [address] Phone: Fax: Name: SUSANNAH KIM Exam Date: : 1944 Age 79 years Gender : M Access ion: [id number] Physic cindy: SHELLI MCGOVERNi ty: [facility] Liza ty HSV: Outpat ient Exam: ABD FLAT UPRIGH T Abdome n: 3 views CLINIC AL INDICA TION: Male, 79 years old. consti pation COMPAR BEN: None. Findin gs: There is a nonspe cific nondil ated nonobs tructi ve small bowel patter n. There is no free air. There is modera te stool seen throug hout the large colon. Impres anton: Nonspe cific nonobs tructi ve small bowel [...] referr ing CASHSARI MARY SUSANNAH Mauricio to [facility] ity Hospit al. Legall y authen ticate d by DANNIE Mauricio 0 12-21 11:07: 54 CC'ed Logic: Orderi ng Provid er: ELISEO MCCANN Attend ing Provid er: ELISEO MCCANN Admitt ing Provid er: ELISEO javier[address] [place] [address] - Physical Therapy [address] [facility], [place], [address], 12/21/2024 14:12:39 01/18/20 25 12/25/2024 CT, abdom en + pelvi s, w/ contr ast No observ ation record ed. 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 Correl ation with PET/CT [...] upper lobe anteri deangelo and in the leasing sales consultant ior medial left upper lobe. Linear atelec [...] No acute osseou s abnorm ality. IMPRES ANTON: Stable right perihi lar lympha denopa thy indica tive of annabelle metast asis. No new thorac ic lympha denopa thy. New cluste rs of peribr onchia l nodula r opacit ies in the right upper lobe and leasing sales consultant ior left upper lobe charac terist ic [...] is stable measur ing 2.7 cm in [facility] er. The stomac h and small [...] No acute osseou s abnorm ality. IMPRES ANTON: No eviden ce for metast atic diseas [...] 9:39 AM Electr onical ly signed by: Guablerto Cox 03/05/20 Thank you for referr ing SUSANNAH KIM Y to [facility] ity Hospit al. Legall y authen ticate d by COX GUALBERTO L 03-05 09:39: 13 CC'ed Logic: Orderi ng Provid er: ELISEO MCCANN Attend ing Provid er: ELISEO MCCANN Referr ing Provid er: ELISEO MCCANN Admitt ing Provid er: ELISEO MCCANN [email or web address] [facility] - Physical Therapy [address] [facility], [place], [address], 03/07/2025 11:08:17 03/05/20 25 03/05/2025 CT, abdom en + pelvi s, w/ contr ast [facility] Hospit al [address] [facility] [address] [place] [address] Phone: Fax: Name: SUSANNAH KIM Exam Date: 03/05/20 : 1944 Age 79 years Gender : M Access ion: [id number] Physic cindy: SHELLI MCGOVERN Facili ty: [facility] Facili ty HSV: Outpat ient Exam: CT ABD PEL W EXAM: CT ABDOME N PELVIS WITH IV CONTRA ST, CT CHEST WITH IV CONTRA ST 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 Correl ation with PET/CT [...] upper lobe anteri deangelo and in the leasing sales consultant ior medial left upper lobe. Linear atelec [...] No acute osseou s abnorm ality. IMPRES ANTON: Stable right perihi lar lympha denopa thy indica tive of annabelle metast asis. No new thorac ic lympha denopa thy. New cluste rs of peribr onchia l nodula r opacit ies in the right upper lobe and leasing sales consultant ior left upper lobe charac terist ic [...] No acute osseou s abnorm ality. IMPRES ANTON: No eviden ce for metast atic diseas [...] Cox 03/05/20 Thank you for referr ing CASHSARI MARYSUSANNAH to [facility] ity Hospit al. Legall y authen ticate d by BROOKE Michel 03-05 09:38: 58 CC'ed Logic: Orderi ng Provid er: ELISEO MCCANN Attend ing Provid er: ELISEO MCCANN Referr ing Provid er: ELISEO MCCANN Admitt ing Provid er: ELISEO MCCANN [email or web address] [facility] - Physical Therapy [address] [place] [address], [address], 03/07/2025 11:08:17 03/07/20 25 03/05/2025 CT, neck, soft tissu e, w/ contr ast [facility] Hospit [facility] [address] [place] [address] Phone: Fax: Name: SUSANNAH KIM Exam Date: 03/05/20 : 1944 Age 79 years Gender : M Access ion: [id number] Physic cindy: SHELLI MCGOVERN Facili ty: [facility] Facili ty HSV: Outpat [...] re contro l was utiliz ed. Compar ben: PET CT 2023 Findin gs: In the [...] suspic ious nodule is identi fied. IMPRES ANTON: 1. Redemo nstrat ion of left paroti [...] this area. Electr onical ly signed by: Lissett Leija MD 2024 10:11 AM EDT RP Workst ation: [id number] Dictat ed By: Lissett Leija Transc ribed By: Transc ribed On: 03/05/20 9:38 AM Electr onical ly signed by: RoelLissett 03/05/20 Thank you [facility] Legall y authen ticate d by ROEL LISSETT 03-05 09:38: 47 CC'ed Logic: Orderi ng Provid er: ELISEO MCCANN Attend ing Provid er: ELISEO MCCANN Referr ing Provid er: ELISEO MCCANN Admitt ing Provid er: ELISEO MCCANN [email or web address] [facility] - Physical Therapy [address] [place] [address], [place], [address], 03/07/2025 11:07:53 04/06/2004/06/2025 CT, neck, soft tissu e, w/ contr ast [facility] al [address] [facility] [address] [place] [address] Phone: Fax: Name: SUSANNAH KIM Exam Date: 04/06/20 : 1944 Age 79 years Gender : M Access ion: [id number] Physic cindy: MEGAN SPRINGER Facili ty: [facility] Facili ty HSV: Outpat ient Exam: CT NECK SOFT TISSUE WITH PROCED URE DESCRI PTION: CT NECK SOFT TISSUE WITH IV CONTRA ST CLINIC AL INDICA TION: Paroti d gland inflam mation . Histor y of laryng eal cancer . COMPAR BEN: CT Neck and chest from 2024 and PET/CT s from 12/04/19.. The CT exam was perfor med using one or more of the follow ing dose reduct ion techni ques: Automa carlos exposu re contro l, adjust ment of the mA and/or kV accord ing to the patien t's size, or use of iterat otny recons tructi on techni que. FINDIN GS: The globes and extrao cular muscle s are unrema rkable . The pteryg opalat ine fossa is unrema rkable . The fossa of Rosenm uller and torus tubari us are unrema rkable . The paraph arynge al fat and subman dibula r glands are unrema rkable . There is redemo nstrat ion of a periph erally enhanc ing mass involv ing the deep portio n of the right paroti d gland on axial image #38 measur ing 1.4 cm (was 1.7 cm). There is redemo nstrat ion of a enhanc ing mass involv ing the deep portio n of the right paroti d gland on axial image #35 measur ing 1.2 cm (was 1.4 cm). There is redemo nstrat ion of a hetero geneou s enhanc ing mass involv ing the superf icial portio n of the left paroti d gland on axial image #14 measur ing 1.6 cm (was 1.8 cm). There is redemo nstrat ion of a hetero geneou s enhanc ing mass involv ing the deep portio n of the left paroti d gland on axial image 38 measur ing 1.3 cm (was 1.2 cm). There is abnorm al thicke marcella involv ing the tongue base, left side greate r than right. This soft tissue thicke marcella extend s into the left preepi glotti c space. There is thicke marcella involv ing the suprag lottic larynx , left side greate r than right with extens ion along the leasing sales consultant ior aspect of the larynx across midlin e. These findin gs are likely consis tent with the patien t's known underl arpan laryng eal cancer . The thyroi d is atroph ic. There are centri lobula r emphys ematou s change s in the upper lobes of lungs with associ ated chroni c inters titial change s of the lungs. There is bilate ral ethmoi d and maxill jr sinus mucosa l thicke marcella, left side greate r than right. IMPRES ANTON: 1. Stable irregu larity and thicke marcella involv ing the tongue base, left side greate r than right extend ing into the left preepi glotti c space. 2. Stable appear ance involv ing the suprag lottic larynx extend ing across the leasing sales consultant ior midlin e consis tent with the patien t's known underl arpan laryng eal cancer . 3. Redemo nstrat ion of multip le enhanc ing masses in bilate ral paroti d glands which is highly suspic ious for metast atic diseas e. Contin ued follow -up is recomm ended. Correl ate with direct visual izatio n. ENT consul tation is also recomm ended. Electr onical ly signed by: Raphael alberto MD 2024 03:08 PM EDT RP Workst ation: [id number] Dictat ed By: RAPHAEL MCKEON Transc ribed By: Transc ribed On: 04/06/20 3:08 PM Electr onical ly signed by: RAPHAEL MCKEON 04/06/20 Legall y authen ticate d by SANJUANA Musa 04-06 15:08: 58 Thank you for referr ing CASHSUSANNAH WEST to [facility]. Legall y authen ticate d by SANJUANA Musa 04-06 15:08: 58 CC'ed Logic: Orderi ng Provid er: RACHEAL GUZMAN Attend ing Provid er: RACHEAL GUZMAN Referr ing Provid er: RACHEAL GUZMAN Admitt ing Provid er: RACHEAL GUZMAN [email or web address] [facility] - Physical Therapy [address] [place] [address], [id number], 04/09/2025 11:24:10 Result Notes Documentation Provider Name and Address Organization Details Recorded Time Ct, Chest, W/ Contrast : [facility] [address] [place] [address] Name: ANN MARIE FELIPE Exam Date: 03/05/2025 : 1945 Age 79 years Gender: M Physician: SHELLI HARRIS Facility: [facility] Facility HSV: Outpatient Exam: CT CHEST W EXAM: CT ABDOMEN PELVIS WITH IV CONTRAST, CT CHEST WITH IV CONTRAST HISTORY: malignant neoplasm of larynx COMPARISON: CT chest 11/22/2024. Correlation with PET/CT 12/04/2024. Procedure: Contiguous axial images through the chest, abdomen, and pelvis were acquired following the administration of intravenous and oral contrast. Reconstructed images in the coronal and sagittal planes were reviewed. CT scans at this facility use dose modulation, iterative reconstruction and/or weight based dosing when appropriate to reduce radiation dose to as low as reasonably achievable. CHEST FINDINGS: A 6 mm solid nodule in the mid left upper lobe laterally and a 4 mm lateral right middle lobe nodule are stable compared to a prior PET/CT performed on 12/22/2023 favoring benign nodules. New clusters of peribronchial nodular opacities are seen near the base of the right upper lobe anteriorly and in the posterior medial left upper lobe. Linear atelectasis versus pleural-parenchymal scarring is seen in the lower lobes bilaterally, left greater than right. Advanced centrilobular emphysema is again noted. Enlarged right perihilar lymph nodes are unchanged, an index right hilar node on image 33 measures 1.3 cm short axis. Mildly prominent mediastinal lymph nodes are stable. There is no new thoracic lymphadenopathy. A dual-lead pacer device is again noted. Heart size is normal. The thoracic aorta is normal caliber. Status post CABG. There is no pleural effusion or pericardial effusion. The esophagus is within normal limits. No acute osseous abnormality. 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 No new thoracic lymphadenopathy. New clusters of peribronchial nodular opacities in the right upper lobe and posterior left upper lobe characteristic of a nonspecific bronchiolitis. Solid left upper lobe and right middle lobe pulmonary nodules are stable compared to 2023 favoring benign nodules. Attention on follow-up imaging is recommended to ensure stability. ABDOMEN AND PELVIS FINDINGS: A few small stones are seen in the gallbladder. The liver, pancreas, spleen, right adrenal gland, and left kidney are within normal limits. A small upper pole right renal cyst is stable. The left adrenal gland nodule is stable favoring an adenoma. The abdominal aorta is stable measuring 2.7 cm in greatest diameter. The stomach and small bowel loops are within normal limits. The colon is within normal limits. The urinary bladder is normal. The prostate is unremarkable. A right inguinal hernia is present containing nonobstructed small bowel loops. There is no ascites, inflammatory stranding in the mesentery or Legally authenticated by BROOKE Michel 2025-03-05 09:39:13 pneumoperitoneum. There is no new lymphadenopathy in the abdomen or pelvis. Multilevel lumbar degenerative disc disease is evident. No acute osseous abnormality. IMPRESSION: No evidence for metastatic disease in the abdomen or pelvis. Cholelithiasis. Right inguinal hernia containing nonobstructed small bowel loops. Electronically signed by: Gualberto Cox MD 03/05/2025 12:08 PM EDT RP Dictated By: Gualberto Cox Transcribed By: Transcribed On: 03/05/2025 9:39 AM Electronically signed by: Gualberto Cox 03/05/2025 Thank you for referring ANN MARIE FELIPE to [facility]. Legally authenticated by BROOKE Michel 2025-03-05 09:39:13 CC'ed Logic: Ordering Provider: KIMBERLY MCCANN Attending Provider: KIMBERLY MCCANN Referring Provider: KIMBERLY MCCANN Admitting Provider: KIMBERLY [facility] 03/07/2025 11:08:17 Ct, Abdomen + Pelvis, W/ Contrast : [place] [address] Name: ANN MARIE FELIPE Exam Date: 03/05/2025 : 1945 Age 79 years Gender: M Physician: SHELLI HARRIS Facility: [facility] Facility HSV: Outpatient Exam: CT ABD PEL W EXAM: CT ABDOMEN PELVIS WITH IV CONTRAST, CT CHEST WITH IV CONTRAST HISTORY: malignant neoplasm of larynx COMPARISON: CT chest 11/22/2024. Correlation with PET/CT 12/04/2024. Procedure: Contiguous axial images through the chest, abdomen, and pelvis were acquired following the administration of intravenous and oral contrast. Reconstructed images in the coronal and sagittal planes were reviewed. CT scans at this facility use dose modulation, iterative reconstruction and/or weight based dosing when appropriate to reduce radiation dose to as low as reasonably achievable. CHEST FINDINGS: A 6 mm solid nodule in the mid left upper lobe laterally and a 4 mm lateral right middle lobe nodule are stable compared to a prior PET/CT performed on 12/22/2023 favoring benign nodules. New clusters of peribronchial nodular opacities are seen near the base of the right upper lobe anteriorly and in the posterior medial left upper lobe. Linear atelectasis versus pleural-parenchymal scarring is seen in the lower lobes bilaterally, left greater than right. Advanced centrilobular emphysema is again noted. Enlarged right perihilar lymph nodes are unchanged, an index right hilar node on image 33 measures 1.3 cm short axis. Mildly prominent mediastinal lymph nodes are stable. There is no new thoracic lymphadenopathy. A dual-lead pacer device is again noted. Heart size is normal. The thoracic aorta is normal caliber. Status post CABG. There is no pleural effusion or pericardial effusion. The esophagus is within normal limits. No acute osseous abnormality. 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 No new thoracic lymphadenopathy. New clusters of peribronchial nodular opacities in the right upper lobe and posterior left upper lobe characteristic of a nonspecific bronchiolitis. Solid left upper lobe and right middle lobe pulmonary nodules are stable compared to 2024 favoring benign nodules. Attention on follow-up imaging is recommended to ensure stability. ABDOMEN AND PELVIS FINDINGS: A few small stones are seen in the gallbladder. The liver, pancreas, spleen, right adrenal gland, and left kidney are within normal limits. A small upper pole right renal cyst is stable. The left adrenal gland nodule is stable favoring an adenoma. The abdominal aorta is stable measuring 2.7 cm in greatest diameter. The stomach and small bowel loops are within normal limits. The colon is within normal limits. The urinary bladder is normal. The prostate is unremarkable. A right inguinal hernia is present containing nonobstructed small bowel loops. There is no ascites, inflammatory stranding in the mesentery or Legally authenticated by BROOKE Michel 2025-03-05 09:38:58 pneumoperitoneum. There is no new lymphadenopathy in the abdomen or pelvis. Multilevel lumbar degenerative disc disease is evident. No acute osseous abnormality. IMPRESSION: No evidence for metastatic disease in the abdomen or pelvis. Cholelithiasis. Right inguinal hernia containing nonobstructed small bowel loops. Electronically signed by: Gualberto Cox MD 03/05/2025 12:08 PM EDT Dictated By: Gualberto Cox Transcribed By: Transcribed On: 03/05/2025 9:38 AM Electronically signed by: Gualberto Cox 03/05/2025 Thank you for referring ANN MARIE FELIPE to [facility]. 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 Sagittal and coronal reformatted images were obtained. Automated exposure control was utilized. Comparison: PET CT 12/22/2023 Findings: In the left parotid gland a peripherally enhancing mass measures 1.7 x 1.1 cm (axial image 35) and a heterogeneously enhancing mass measures 1.2 x 1.1 cm (image 29) these are similar in appearance to the hypermetabolic lesion seen on prior PET imaging. In the right parotid gland a peripherally enhancing mass measures 1.6 x 1.3 cm (image 32) with adjacent enlarged cervical adenopathy measuring up to 1.4 cm in diameter, which appears to be new compared to prior imaging. Decreased soft tissue in the hypoglossal region at the level of the hyoid bone, compatible with postsurgical changes, with no discrete enhancing lesion in this region. Limited images of the lung apices demonstrates centrilobular emphysema. No suspicious nodule is identified. IMPRESSION: 1. Redemonstration of left parotid masses with new right parotid mass and cervical adenopathy consistent with progression of metastatic disease. 2. Post surgical findings of primary mass resection in the subglottic region with no findings of residual/recurrent disease in this area. Electronically signed by: Lissett Leija MD 03/07/2025 10:11 AM EDT RP Dictated By: Lissett Leija Transcribed By: Transcribed On: 03/05/2025 9:38 AM Electronically signed by: Lissett Leija 03/05/2025 Thank you for referring ANN MARIE FELIPE to [facility]. Legally authenticated by ROEL GALEANA 2025-03-05 09:38:47 CC'ed Logic: Ordering Provider: KIMBERLY MCCANN Attending Provider: KIMBERLY MCCANN Referring Provider: KIMBERLY MCCANN Admitting Provider: KIMBERLY Funes [facility] 03/07/2025 11:07:53 Ct, Neck, Soft Tissue, W/ Contrast : [place] [address] Name: ANN MARIE FELIPE Exam Date: 04/06/2025 : 1945 Age 79 years Gender: M Physician: MEGAN SPRINGER Facility: [facility] Facility HSV: Outpatient Exam: CT NECK SOFT TISSUE WITH PROCEDURE DESCRIPTION: CT NECK SOFT TISSUE WITH IV CONTRAST CLINICAL INDICATION: Parotid gland inflammation. History of laryngeal cancer. COMPARISON: CT Neck and chest from 03/05/2025 and PET/CTs from 12/04/2024.. The CT exam was performed using one or more of the following dose reduction techniques: Automated exposure control, adjustment of the mA and/or kV according to the patient's size, or use of iterative reconstruction technique. FINDINGS: The globes and extraocular muscles are unremarkable. The pterygopalatine fossa is unremarkable. The fossa of Rosenmuller and torus tubarius are unremarkable. The parapharyngeal fat and submandibular glands are unremarkable. There is redemonstration of a peripherally enhancing mass involving the deep portion of the right parotid gland on axial image #38 measuring 1.4 cm (was 1.7 cm). There is redemonstration of a enhancing mass involving the deep portion of the right parotid gland on axial image #35 measuring 1.2 cm (was 1.4 cm). There is redemonstration of a heterogeneous enhancing mass involving the superficial portion of the left parotid gland on axial image #14 measuring 1.6 cm (was 1.8 cm). There is redemonstration of a heterogeneous enhancing mass involving the deep portion of the left parotid gland on axial image 38 measuring 1.3 cm (was 1.2 cm). There is abnormal thickening involving the tongue base, left side greater than right. This soft tissue thickening extends into the left preepiglottic space. There is thickening involving the supraglottic larynx, left side greater than right with extension along the posterior aspect of the larynx across midline. These findings are likely consistent with the patient's known underlying laryngeal cancer. The thyroid is atrophic. There are centrilobular emphysematous changes in the upper lobes of lungs with associated chronic interstitial changes of the lungs. There is bilateral ethmoid and maxillary sinus mucosal thickening, left side greater than right. IMPRESSION: 1. Stable irregularity and thickening involving the tongue base, left side greater than right extending into the left preepiglottic space. 2. Stable appearance involving the supraglottic larynx extending across the posterior midline consistent with the patient's known underlying laryngeal cancer. 3. Redemonstration of multiple enhancing masses in bilateral parotid glands which is highly suspicious for metastatic disease. Continued follow-up is recommended. Correlate with direct visualization. ENT consultation is also recommended. Electronically signed by: Raphael Pennington MD 04/06/2025 03:08 PM EDT Dictated By: RAPHAEL PENNINGTON Transcribed By: Transcribed On: 04/06/2025 3:08 PM Electronically signed by: RAPHAEL PENNINGTON 04/06/2025 Legally authenticated by ELIZABETH Musa 2025-04-06 15:08:58 Thank you for referring ANN MARIE FELIPE to [facility]. Legally authenticated by ELIZABETH Musa 2025-04-06 15:08:58 CC'ed Logic: Ordering Provider: RACHEAL GUZMAN Attending Provider: RACHEAL GUZMAN Referring Provider: RACHEAL GUZMAN Admitting Provider: [facility] 04/09/2025 11:24:10 Procedures Surgical History Date Name Laterality Status Provider Name and Address Organization Details Recorded Time open heart surgery completed Janeth Anderson [facility] & [place] 02/14/2024 09:56:24 operative procedure on knee completed Kristine Gipson [facility] & [place] 04/05/2024 13:20:11 Imaging Results None recorded. Procedure Notes None recorded. Medical Equipment None Reported. Allergies Allergen ID Allergen Name Allergen Category Reaction Reaction Severity Criticality Documentation Date Start Date Code Code System Note Provider Name and Address Organization Details Recorded Time 705379 Product containin g penicilli n (product) medicatio n hives Not available Not available 02/06/2025 89964 8001 SN[facility]ED [facility] [place] 08:40:08 Medications Name Sig Start Date Stop [...] Not Available Not Available No t Available [facility]- [facility]. Springer active Not Available Not Available No t [...] Updated DateTime 5 180.34 cm 23.8 kg/m2 43245.1 4 g 97.9 [degF] 95 % 95 % 70 /min 18 /min 120 mm[Hg] 63 mm[Hg] Janeth Anderson [facility] & [place] 5 09:18:24 Date Recorded Body height Body mass index (BMI) Body weight Heart rate Oxygen saturation Oxygen saturation in Arterial blood by Pulse oximetry Body temperature Systolic blood pressure Diastolic blood pressure Provider Name and Address Organization Details Last Updated DateTime 5 180.34 cm 23.8 kg/m2 94659.8 6 g 70 /min 100 % 100 % 98.2 [degF] 110 mm[Hg] 60 mm[Hg] Jackie Roldan [facility] & [place] 5 08:42:53 Date Recorded Body height Body mass index (BMI) Body weight Body temperature Oxygen saturation Oxygen saturation in Arterial blood by Pulse oximetry Heart rate Systolic blood pressure Diastolic blood pressure Provider Name and Address Organization Details Last Updated DateTime 5 180.34 cm 23.8 kg/m2 47635.5 8 g 97.8 [degF] 94 % 94 % 70 /min 100 mm[Hg] 59 mm[Hg] Gonzalo NGUYEN - [facility] [place] 5 08:19:37 Date Recorded Body height Body temperature Oxygen saturation Oxygen saturation in Arterial blood by Pulse oximetry Heart rate Systolic blood pressure Diastolic blood pressure Provider Name and Address Organization Details Last Updated DateTime 5 180.34 cm 97.6 [degF] 96 % 96 % 70 /min 102 mm[Hg] 64 mm[Hg] Kristine Acevedo LPNT [facility] & [place] 5 08:13:31 Social History Question Answer Notes LastModified by [employer] ion Details LastModified Time Tobacco Smoking Status Current Every Day Smoker Janeth price, PATRICK Kristina GLEASONNT [facility] & [place] 02/14/2024 09:56:11 What Is Your Level Of Caffeine Consumption? Occasional [email or web address] Information not available 04/05/2024 What Was The Date Of Your Most Recent Tobacco Screening? 04/05/2024 [email or web address] Information not available 04/05/2024 At What Age Did You Start Smoking Tobacco? 8 [email or web address] Information not available 02/14/2024 How Much Tobacco Do You Smoke? 1 PPD [email or web address] Information not available 02/14/2024 How Many Years Have You Smoked Tobacco? 69 [email or web address] Information not available 02/14/2024 Sex: Unknown Functional Status Question Answer Note LastModified by Organizat ion Details LastModified Time Do you use any illicit or recreational drugs? No [email or web address] Information not available 02/14/2024 Do you or have you ever used any other forms of tobacco or nicotine? No [email or web address] Information not available 04/05/2024 What is your level of alcohol consumption? None Information not available 02/14/2024 Mental Status None recorded. Family History Nothing Reported. Medical History No medical history recorded. Immunizations Vaccine Type Date Status Note Provider Nam e and Address Organization Details Recorded Time COVID-19 vaccine, vector-nr, rS-Ad26, PF, 0.5 mL 1 completed PATRICK Rodríguez - LPNT [facility] [place] 04/05/2024 13:16:44 Influenza, split virus, trivalent, preservative 9 completed PATRICK Rodríguez - [place] & [place] 04/05/2024 13:16:44 Past Encounters Encounter ID Performer Location Encounter Start Date Encounter Closed Date Diagnosis/Indication Diagnosis SNOMED-CT Code Diagnosis ICD10 Code Diagnosis Note [id number] Megan Springer MD [facility] [address] [facility] [address] [place] [address] 02/14/2024 09:33:39 02/14/2024 10:42:52 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 Will request P 16 results from [facility]. Discussed additional testing with on peripheral blood tempus testing. Will follow-up for any signs of mutational status. Metastatic malignant neoplasm to lung 62912483 C78.01 PET scan performed on December 22, [...] cm with no significan t uptake. Nausea 091228618 R11.0 as needed zofran and phenergren called in. [id number] Shelli Harris PA-C [facility] [address] [place] [address] 04/05/2024 13:12:21 04/05/2024 13:54:16 Squamous cell carcinoma of larynx 023572207 C32.9 CT scan on November 24, 2023 [...] response. Will request P 16 results from [facility]. Discussed additional testing with on peripheral blood tempus testing. Will follow-up for any signs of mutational status. Patient returns on April 05, 2024. Patient will receive cycle 1 of Keytruda today. Immunother apy education performed before treatment was started. Will follow up tolerabili ty Metastatic malignant neoplasm to lung 85316919 C78.01 PET scan performed on December 22, [...] cm with no significan t uptake. Nausea 420659446 R11.0 as needed zofran and phenergren called in. Immunological therapy 76 521866 Z51.12 Cycle 1 of Keytruda on April 05, 2024. [id number] Shelli Harris PA-C [facility] [address] [place] [address] 04/27/2024 08:56:12 04/27/2024 09:34:39 Squamous cell carcinoma of larynx 576935803 C32.9 CT scan on November 24, 2023 [...] response. Will request P 16 results from [facility]. Discussed additional testing with on [...] of Keytruda. Metastatic malignant neoplasm to lung 35988413 C78.01 PET scan performed on December 22, [...] cm with no significan t uptake. Nausea 770581174 R11.0 as needed zofran and phenergren called in. Immunological therapy 76 516493 Z51.12 Cycle 1 of Keytruda on April 05, 2024.Cycle 2 of Keytruda on April 27, 2024. [id number] Shelli Harris PA-C [facility] [address] [place] [address] 05/18/2024 08:33:38 05/18/2024 08:42:33 Squamous cell carcinoma of larynx 819880918 C32.9 CT scan on November 24, 2023 [...] response. Will request P 16 results from [facility]. Discussed additional testing with on [...] up labs. Metastatic malignant neoplasm to lung 14375701 C78.01 PET scan performed on December 22, [...] cm with no significan t uptake. Nausea 903592027 R11.0 as needed zofran and phenergren called in. Immunological therapy 76 479868 Z51.12 Cycle 1 of Keytruda on April 05, 2024.Cycle 2 of Keytruda on April 27, 2024.Cycle 3 of Keytruda on May 18, 2024. Fatigue 03269751 R53.83 Patient has had some fatigue. Denies any additional changes. Will follow up labs. [id number] Shelli Harris PA-C [facility] [address] [facility] [address] [place] [address] 06/08/2024 09:00:56 06/08/2024 09:26:16 Squamous cell carcinoma of larynx 995626102 C32.9 CT scan on November 24, 2023 [...] response. Will request P 16 results from [facility]. Discussed additional testing with on [...] up labs. Metastatic malignant neoplasm to lung 65172414 C78.01 PET scan performed on December 22, [...] cm with no significan t uptake. Nausea 689455523 R11.0 as needed zofran and phenergren called in. Immunological therapy 76 121437 Z51.12 Cycle 1 of Keytruda on April 05, 2024.Cycle 2 of Keytruda on April 27, 2024.Cycle 3 of Keytruda on May 18, 2024.Cycle 4 of Keytruda on June 08, 2024. Fatigue 65352519 R53.83 Patient has had some fatigue. Denies any additional changes. Will follow up labs. [id number] Shelli Harris PA-C [facility] [address] [place] [address] 06/29/2024 08:44:43 06/29/2024 09:19:14 Squamous cell carcinoma of larynx 047326970 C32.9 CT scan on November 24, 2023 [...] response. Will request P 16 results from [facility]. Discussed additional testing with on [...] up labs. Metastatic malignant neoplasm to lung 96109507 C78.01 PET scan performed on December 22, [...] cm with no significan t uptake. Nausea 936220461 R11.0 as needed zofran and phenergren called in. Immunological therapy 76 582320 Z51.12 Cycle 1 of Keytruda on April 05, 2024.Cycle 2 of Keytruda on April 27, 2024.Cycle 3 of Keytruda on May 18, 2024.Cycle 4 of Keytruda on June 08, 2024.Cycle 5 of Keytruda on June 29, 2024. Hypomagnesemia 553131044 E83.42 Labs on June 08, 2024 with magnesium low 1.6. Will follow-up labs today Constipation 78626531 K5 9.00 Patient has had some constipati on. Will send prescripti on for MiraLax. Cobalamin deficiency 190 538156 E53.8 History of vitamin B12 deficiency . He is currently receiving monthly vitamin B12. Labs on June 08, 2024 with vitamin B12 normal at 426. Normal folic acid [id number] Shelli Harris PA-C [facility] [address] [place] [address] 07/21/2024 09:56:03 07/21/2024 10:34:40 Squamous cell carcinoma of larynx 098217586 C32.9 CT scan on November 24, 2023 [...] response. Will request P 16 results from [facility]. Discussed additional testing with on [...] up labs. Metastatic malignant neoplasm to lung 50276445 C78.01 PET scan performed on December 22, [...] cm with no significan t uptake. Nausea 085318885 R11.0 as needed zofran and phenergren called in. Immunological therapy 76 443675 Z51.12 Cycle 1 of Keytruda on April 05, 2024.Cycle 2 of Keytruda on April 27, 2024.Cycle 3 of Keytruda on May 18, 2024.Cycle 4 of Keytruda on June 08, 2024.Cycle 5 of Keytruda on June 29, 2024.Cycle 6 of Keytruda on July 21, 2024. Hypomagnesemia 865988771 E83.42 Labs on June 08, 2024 with magnesium low 1.6. Will follow-up labs today Constipation 01526918 K5 9.00 Patient has had some constipati on. Will send prescripti on for MiraLax. Cobalamin deficiency 190 782793 E53.8 History of vitamin B12 deficiency . He is currently receiving monthly vitamin B12. Labs on June 08, 2024 with vitamin B12 normal at 426. Normal folic acid [id number] Shelli Harris PA-C [facility] [address] [place] [address] 08/10/2024 08:33:53 08/10/2024 09:31:13 Squamous cell carcinoma of larynx 861912000 C32.9 CT scan on November 24, 2023 [...] response. Will request P 16 results from [facility]. Discussed additional testing with on [...] up labs. Metastatic malignant neoplasm to lung 20752650 C78.01 PET scan performed on December 22, [...] cm with no significan t uptake. Nausea 567080630 R11.0 as needed zofran and phenergren called in. Immunological therapy 76 196847 Z51.12 Cycle 1 of Keytruda on April 05, 2024.Cycle 2 of Keytruda on April 27, 2024.Cycle 3 of Keytruda on May 18, 2024.Cycle 4 of Keytruda on June 08, 2024.Cycle 5 of Keytruda on June 29, 2024.Cycle 6 of Keytruda on July 21, 2024.Cycle 7 of Keytruda on August 10, 2024. Hypomagnesemia 831762219 E83.42 Labs on June 08, 2024 with magnesium low 1.6. Will follow-up labs today Constipation 95686818 K5 9.00 Patient has had some constipati on. Will send prescripti on for MiraLax. Cobalamin deficiency 190 677528 E53.8 History of vitamin B12 deficiency . He is currently receiving monthly vitamin B12. Labs on June 08, 2024 with vitamin B12 normal at 426. Normal folic acid Pruritic rash 13837726 L 28.2 Patient returns on August 10 [...] oral steroids if needed. Will follow up. [id number] Megan Springer MD [facility] [address] [facility] [address] [place] [address] 08/30/2024 08:35:40 08/30/2024 10:02:02 Squamous cell carcinoma of larynx 494647516 C32.9 CT scan on November 24, 2023 [...] response. Will request P 16 results from [facility]. Discussed additional testing with on [...] labs today. Metastatic malignant neoplasm to lung 61459086 C78.01 PET scan performed on December 22, [...] cm with no significan t uptake. Nausea 820388944 R11.0 as needed zofran and phenergren called in. Immunological therapy 76 015328 Z51.12 Cycle 1 of Keytruda on April 05, 2024.Cycle 2 of Keytruda on April 27, 2024.Cycle 3 of Keytruda on May 18, 2024.Cycle 4 of Keytruda on June 08, 2024.Cycle 5 of Keytruda on June 29, 2024.Cycle 6 of Keytruda on July 21, 2024.Cycle 7 of Keytruda on August 10, 2024.Cycle 8 of Keytruda on August 30, 2024. Hypomagnesemia 485287964 E83.42 Labs on June 08, 2024 with magnesium low 1.6. Will follow-up labs today Constipation 05051795 K5 9.00 Patient has had some constipati on. Will send prescripti on for MiraLax. Cobalamin deficiency 190 032123 E53.8 History of vitamin B12 deficiency . He is currently receiving monthly vitamin B12. Labs on June 08, 2024 with vitamin B12 normal at 426. Normal folic acid Gastrostom y tube in situ 622458475 Z93.1 Patient interested in possible removal of PEG tube. Discussed potential PEG button placement and will follow-up nutrition needs. [id number] Megan Springer MD [facility] [address] [facility] [address] [place] [address] 09/20/2024 08:44:41 09/20/2024 10:32:15 Squamous cell carcinoma of larynx 280160749 C32.9 CT scan on November 24, 2023 [...] response. Will request P 16 results from [facility]. Discussed additional testing with on [...] pulmonary medicine. Metastatic malignant neoplasm to lung 35908516 C78.01 PET scan performed on December 22, [...] cm with no significan t uptake. Nausea 475462229 R11.0 as needed zofran and phenergren called in. Immunological therapy 76 374981 Z51.12 Cycle 1 of Keytruda on April [...] of Keytruda on September 20, 2024. Hypomagnesemia 287560343 E83.42 Labs on June 08, 2024 with magnesium low 1.6. Will follow-up labs today Constipation 39310066 K5 9.00 Patient has had some constipati on. Will send prescripti on for MiraLax. Cobalamin deficiency 190 875852 E53.8 History of vitamin B12 deficiency . He is currently receiving monthly vitamin B12. Labs on June 08, 2024 with vitamin B12 normal at 426. Normal folic acid Gastrostom y tube in situ 376541476 Z93.1 Patient interested in possible removal of PEG tube. Discussed potential PEG button placement and will follow-up nutrition needs. [id number] Megan Springer MD [facility] [address] [facility] [address] [place] [address] 10/11/2024 08:27:14 10/11/2024 09:12:55 Squamous cell carcinoma of larynx [id number] C32.9 CT scan on November 24, 2023 [...] response. Will request P 16 results from [facility]. Discussed additional testing with on [...] November 2023. Metastatic malignant neoplasm to lung 19323564 C78.01 PET scan performed on December 22, [...] cm with no significan t uptake. Nausea 485639690 R11.0 as needed zofran and phenergren called in. Immunological therapy 76 124811 Z51.12 Cycle 1 of Keytruda on April [...] of Keytruda on October 11, 2024. Hypomagnesemia 109412817 E83.42 Labs on June 08, 2024 with magnesium low 1.6. Will follow-up labs today Constipation 55865287 K5 9.00 Patient has had some constipati on. Will send prescripti on for MiraLax. Cobalamin deficiency 190 211509 E53.8 History of vitamin B12 deficiency . He is currently receiving monthly vitamin B12. Labs on June 08, 2024 with vitamin B12 normal at 426. Normal folic acid Gastrostom y tube in situ 576213335 Z93.1 Patient interested in possible removal of PEG tube. Discussed potential PEG button placement and will follow-up nutrition needs. [id number] Shelli Harris PA-C [facility] [address] [place] [address] 11/02/2024 09:32:09 11/02/2024 09:52:54 Squamous cell carcinoma of larynx 982111156 C32.9 CT scan on November 24, 2023 [...] response. Will request P 16 results from [facility]. Discussed additional testing with on [...] tube removal. Metastatic malignant neoplasm to lung 47020578 C78.01 PET scan performed on December 22, [...] cm with no significan t uptake. Nausea 109119003 R11.0 as needed zofran and phenergren called in. Immunological therapy 76 803245 Z51.12 Cycle 1 of Keytruda on April [...] of Keytruda on November 02, 2024. Hypomagnesemia 043652503 E83.42 Labs on June 08, 2024 with magnesium low 1.6. Will follow-up labs today Constipation 40202293 K5 9.00 Patient has had some constipati on. Will send prescripti on for MiraLax. Cobalamin deficiency 190 799243 E53.8 History of vitamin B12 deficiency . He is currently receiving monthly vitamin B12. Labs on June 08, 2024 with vitamin B12 normal at 426. Normal folic acid Gastrostom y tube in situ 360625858 Z93.1 Patient interested in possible removal of PEG tube. Discussed potential PEG button placement and will follow-up nutrition needs. [id number] Shelli Harris PA-C [facility] [address] [place] [address] 11/23/2024 08:39:33 11/23/2024 08:40:07 Squamous cell carcinoma of larynx 117727518 C32.9 CT scan on November 24, 2023 [...] response. Will request P 16 results from [facility]. Discussed additional testing with on [...] follow up. Metastatic malignant neoplasm to lung 13284165 C78.01 PET scan performed on December 22, [...] cm with no significan t uptake. Nausea 413259365 R11.0 He has needed zofran and phenergren prescribed . Immunological therapy 76 509550 Z51.12 Cycle 1 of Keytruda on April [...] of Keytruda on November 22, 2024. Hypomagnesemia 289179018 E83.42 Labs on June 08, 2024 with magnesium low 1.6. Will follow-up labs today Constipation 45572770 K5 9.00 Patient has had some constipati on. Prescripti on sent for MiraLax. Cobalamin deficiency 190 865286 E53.8 History of vitamin B12 deficiency . He is currently receiving monthly vitamin B12. Labs on June 08, 2024 with vitamin B12 normal at 426. Normal folic acid Gastrostom y tube in situ 855234246 Z93.1 Patient interested in possible removal of PEG tube. Discussed potential PEG button placement and will follow-up nutrition needs. He is scheduled to have his feeding tube removed as he is eating without trouble and has not used his feeding tube in at least 2-3 months. Severe dry skin 65111537 2 L85.3 Patient returns November 23, 2024. He does have dry pruritic skin. No rash. Discussed using moisturize r with Aquaphor and Aveeno body wash. Will follow-up. [id number] Shelli Harris PA-C [facility] [address] [place] [address] 12/14/2024 08:16:04 12/14/2024 09:03:13 Squamous cell carcinoma of larynx 094533292 C32.9 CT scan on November 24, 2023 [...] response. Will request P 16 results from [facility]. Discussed additional testing with on [...] progressio n. Metastatic malignant neoplasm to lung 61073047 C78.01 PET scan performed on December 22, [...] no significan t uptake. Immunological therapy 76 016001 Z51.12 Cycle 1 of Keytruda on April [...] 2024 due to elevated liver enzymes. Hypomagnesemia 165125392 E83.42 Labs on June 08, 2024 with magnesium low 1.6. Will follow-up labs today Constipation 44933129 K5 9.00 Patient has had some constipati on. Prescripti on sent for MiraLax. Cobalamin deficiency 190 275187 E53.8 History of vitamin B12 deficiency . He is currently receiving monthly vitamin B12. Labs on June 08, 2024 with vitamin B12 normal at 426. Normal folic acid Gastrostom y tube in situ 727335966 Z93.1 Patient interested in possible removal of PEG tube. Discussed potential PEG button placement and will follow-up nutrition needs. He is scheduled to have his feeding tube removed as he is eating without trouble and has not used his feeding tube in at least 2-3 months. Severe dry skin 30002764 2 L85.3 Patient returns November 23, 2024. [...] Liver enzy mes level above reference range 458421077 R74.01 Patient returns December 14, 2024. He [...] and hopefully resume Keytruda at that time. [id number] Shelli Harris PA-C [facility] [address] [place] [address] 12/21/2024 08:19:27 12/21/2024 09:11:07 Squamous cell carcinoma of larynx 511055308 C32.9 CT scan on November 24, 2023 [...] response. Will request P 16 results from [facility]. Discussed additional testing with on [...] progressio n. Metastatic malignant neoplasm to lung 69893264 C78.01 PET scan performed on December 22, [...] no significan t uptake. Immunological therapy 76 707829 Z51.12 Cycle 1 of Keytruda on April [...] on Keytruda on December 21, 2024. Hypomagnesemia 818487095 E83.42 Labs on June 08, 2024 with magnesium low 1.6. Will follow-up labs today Constipation 57400646 K5 9.00 Patient returns December 21, 2024. [...] obstructio n. Will send prescripti on for Linzess. Cobalamin deficiency 190 526191 E53.8 History of vitamin B12 deficiency . He is currently receiving monthly vitamin B12. Labs on June 08, 2024 with vitamin B12 normal at 426. Normal folic acid Gastrostom y tube in situ 225427394 Z93.1 Patient interested in possible removal of PEG tube. Discussed potential PEG button placement and will follow-up nutrition needs. He is scheduled to have his feeding tube removed as he is eating without trouble and has not used his feeding tube in at least 2-3 months. Severe dry skin 48508193 2 L85.3 Patient returns November 23, 2024. [...] Liver enzy mes level above reference range 653043535 R74.01 Labs December 14, 2024 with elevated [...] Keytruda today. Will continue to monitor labs. [id number] Shelli Harris PA-C [facility] [address] [facility] [address] [address] [place] [address] 01/11/2025 09:03:46 01/11/2025 09:28:31 Squamous cell carcinoma of larynx 893303093 C32.9 CT scan on November 24, 2023 [...] response. Will request P 16 results from [facility]. Discussed additional testing with on [...] Keytruda today. Patient states he went to [facility] since previous visit due to [...] atrial fibrillati on. Will request records from [facility] to review. Metastatic malignant neoplasm to lung 54216507 C78.01 PET scan performed on December 22, [...] no significan t uptake. Immunological therapy 76 591394 Z51.12 Cycle 1 of Keytruda on April [...] Keytruda today to monitor for toxicity. Hypomagnesemia 859487240 E83.42 Currently taking daily magnesium. Will follow-up labs today Constipation 40528231 K5 9.00 Patient has had constipati on is taking MiraLax and bowel movements have improved a little with this. Prescripti on sent for Linzess and he is planning to pick this up from pharmacy today. Cobalamin deficiency 190 943300 E53.8 History of vitamin B12 deficiency . He is currently receiving monthly vitamin B12. Labs on June 08, 2024 with vitamin B12 normal at 426. Normal folic acid. Will follow up labs today. Severe dry skin 30231972 2 L85.3 Patient with dry pruritic skin. No rash. Discussed using moisturize r with Aquaphor and Aveeno body wash. He is using moisturize r with Aquaphor and Aveeno body wash with improvemen t of dry skin. Nausea and vomiting 1693 2000 R11.2 Prescribed Zofran as needed. [id number] Shelli Harris PA-C [facility] [address] [place] [address] 02/01/2025 08:35:14 02/01/2025 09:24:21 Immunological therapy 47092725 Z51.12 Cycle 1 of Keytruda on April [...] toxicity. Squamous c ell carcinoma of larynx 672656355 C32.9 CT scan on November 24, 2023 [...] response. Will request P 16 results from [facility]. Discussed additional testing with on [...] that time. Metastatic malignant neoplasm to lung 93509159 C78.01 PET scan performed on December 22, [...] cm with no significan t uptake. Hypomagnesemia 498104812 E83.42 Currently taking daily magnesium. Will follow-up labs today Constipation 57911457 K5 9.00 Patient has had constipati on is taking MiraLax and bowel movements have improved a little with this. Prescripti on sent for Linzess. Cobalamin deficiency 190 936598 E53.8 History of vitamin B12 deficiency . He is currently receiving monthly vitamin B12. Labs on June 08, 2024 with vitamin B12 normal at 426. Normal folic acid. Will follow up labs today. Severe dry skin 83420023 2 L85.3 Patient with dry pruritic skin. No rash. Discussed using moisturize r with Aquaphor and Aveeno body wash. He is using moisturize r with Aquaphor and Aveeno body wash with improvemen t of dry skin. Nausea and vomiting 1692 1999 R11.2 Prescribed Zofran as needed. [id number] Claudia Childs MD [facility] S[facility] [address] [place] [address] 02/06/2025 08:26:36 02/06/2025 08:58:51 Irreducible inguinal hernia 929729511 K40.30 Right inguinal hernia containing chronicall y [...] minutes. Squamous c ell carcinoma of larynx 693290052 C32.9 Patient with stage IVC squamous cell [...] surgical options. Metastatic malignant neoplasm to lung 14103694 C78.01 [id number] Shelli Harris PA-C [facility] [address] [facility] [address] [place] [address] 02/22/2025 08:09:06 02/22/2025 08:44:34 Immunological therapy 75117337 Z51.12 Cycle 1 of Keytruda on April [...] toxicity. Squamous c ell carcinoma of larynx 678611610 C32.9 CT scan on November 24, 2023 [...] response. Will request P 16 results from [facility]. Discussed additional testing with on [...] and pelvis. Metastatic malignant neoplasm to lung 94195545 C78.01 PET scan performed on December 22, [...] cm with no significan t uptake. Hypomagnesemia 314587766 E83.42 Currently taking daily magnesium. Will follow-up labs today Constipation 27168104 K5 9.00 Patient has had constipati on is taking MiraLax and bowel movements have improved a little with this. Prescripti on sent for Linzess. Cobalamin deficiency 190 728035 E53.8 History of vitamin B12 deficiency . He is currently receiving monthly vitamin B12. Labs on June 08, 2024 with vitamin B12 normal at 426. Normal folic acid. Will follow up labs today. Severe dry skin 76334410 2 L85.3 Patient with dry pruritic skin. No rash. Discussed using moisturize r with Aquaphor and Aveeno body wash. He is using moisturize r with Aquaphor and Aveeno body wash with improvemen t of dry skin. Nausea and vomiting 1692 1999 R11.2 Prescribed Zofran as needed. [id number] Megan Springer MD [facility] [address] [place] [address] 03/14/2025 08:01:03 03/14/2025 08:41:05 Immunological therapy 08604756 Z51.12 Cycle 1 of Keytruda on April [...] toxicity. Squamous c ell carcinoma of larynx 289675346 C32.9 CT scan on November 24, 2023 [...] response. Will request P 16 results from [facility]. Discussed additional testing with on [...] Will follow-up Metastatic malignant neoplasm to lung 49682166 C78.01 PET scan performed on December 22, [...] cm with no significan t uptake. Hypomagnesemia 730535124 E83.42 Currently taking daily magnesium. Will follow-up labs today Constipation 32278192 K5 9.00 Patient has had constipati on is taking MiraLax and bowel movements have improved a little with this. Prescripti on sent for Marleen. Cobalamin deficiency 190 246429 E53.8 History of vitamin B12 deficiency . He is currently receiving monthly vitamin B12. Labs on June 08, 2024 with vitamin B12 normal at 426. Normal folic acid. Will follow up labs today. Severe dry skin 82599851 2 L85.3 Patient with dry pruritic skin. No rash. Discussed using moisturize r with Aquaphor and Aveeno body wash. He is using moisturize r with Aquaphor and Aveeno body wash with improvemen t of dry skin. Nausea and vomiting 1693 2000 R11.2 Prescribed Zofran as needed. Parotitis 86593871 K11.[address] scan of the neck [...] Member ID Guarantor Name 01/11/2025 [place] Ann Marie Hinkle [id number] Ann Marie Hinkle 03/09/2025 1 [facility] (MEDICARE REPLACEMENT/A DVANTAGE - HMO) [id number] Ann Marie Hinkle [id number] Ann Marie Hinkle 06/08/2024 1 [place] Ann Marie Hinkle [id number] [facility] 03/09/2025 2 [facility] [facility] (MEDICAID HMO) Ann Marie Felipe [id number] Ann Marie Felipe Notes Date Note Type Note Provider Name and Address Organization Details Recorded Time 01/11/2025 text/html 79 yo M returns for evaluation 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 Patient presented to [facility] for evaluation with ENT in [...] response. Will request P 16 results from [facility]. Discussed additional testing with on [...] for toxicity. Patient states he went to [facility] since previous visit due to [...] for atrial fibrillation. Will request records from [facility] to review. He has had constipation is taking MiraLax and bowel movements have improved a little with this. Prescription sent for Linzess and he is planning to pick this up from pharmacy today. 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 Patient presented to [facility] for evaluation with ENT in [...] response. Will request P 16 results from [facility]. Discussed additional testing with on [...] disease evident. Patient states he went to [facility] due to urinary retention. [...] chest abdomen and pelvis at that time. Shelli Harris PA-C [address] , [place], [address], [place] - [facility] - [place] & [place] 02/01/2025 09:21:30 02/06/2025 text/html 79-year-old man referred [...] symptoms after treatment. 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 Patient presented to [facility] for evaluation with ENT in [...] response. Will request P 16 results from [facility]. Discussed additional testing with on [...] disease evident. Patient states he went to [facility] due to urinary retention. [...] schedule CT neck chest abdomen and pelvis. 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 Patient presented to [facility] for evaluation with ENT in [...] response. Will request P 16 results from [facility]. Discussed additional testing with on [...] disease evident. Patient states he went to [facility] due to urinary retention. [...] Hopeful to potentially resume Keytruda. Will follow-up Megan Springer MD [address], [place], [address], [place] - [facility] - [place] & [place] 03/14/2025 08:48:46
--- OUTSIDE RECORDS SUMMARY | 2025-04-13 13:17 | XMS_ITS | Continuity of Care Document ---
Author Organization [facility] Address [address] [facility] [address] [place] [address] Care Team Providers Care Knapsack Sprayer Name Role Phone DESI VALDERRAMA Radiation Oncologist [phone] Assessment No assessment recorded. Plan of Treatment Reminders Order Date Submit Date Provider Last Modified By Organization Details Last Modified Time Details Appointments None recorded. Lab TSH, serum or plasma [email or web address] [facility], [address] [place], [address], 5 08:24:07 CBC w/ diff 2024 025 [email or web address] 6 [facility], [address] [place], [address], 5 08:24:07 CMP, serum or plasma 2024 025 JERICHO [facility], [address] [place], [address], 5 09:03:11 magnesium, serum or plasma 2024 025 [email or web address] 6 [facility], [address] [place], [address], 5 08:24:07 vitamin B12 + folate, serum or blood 2024 025 [email or web address] 6 [facility], [address] [place], [address], 5 08:24:07 Referral None recorded. Procedures None recorded. Surgeries None recorded. Imaging CT, neck, soft tissue, w/ contrast 2024 025 [email or web address] 6 [facility] (Centralized Scheduling), [address] [place], [address], 5 09:01:35 CT, chest + abdomen + pelvis, w/ contrast 2024 025 [email or web address] 6 [facility] (Centralized Scheduling), [address] [facility], [place], [address], 5 09:01:35 Medication Orders None recorded. Patient TargetsNo targets recorded. Patient InstructionsNo instructions recorded. Reason for Referral None Reported. Results Created Date Observation Date Name Description Value Unit Range Abnormal Flag Note LastModifiedBy Organization Detail LastModifiedTime 03/05/2003/05/2025 CT, chest , w/ contr ast [facility] [address] [place] [address] Phone: Fax: Name: SUSANNAH KIM Exam Date: 03/05/20 25 : 1944 Age 79 years Gender : M Access ion: [id number] Physic cindy: SIOBHAN MCGOVERN Facili ty: [facility] Facili ty HSV: Outpat ient Exam: [...] upper lobe anteri deangelo and in the wooden shade hardware installer ior medial left upper lobe. Linear atelec [...] ies in the right upper lobe and wooden shade hardware installer ior left upper lobe charac terist ic [...] for [facility] Legall y authen ticate d by BROOKE Michel 03-05 09:39: 13 CC'ed Logic: Orderi ng Provid er: ELISEO MCCANN Attend ing Provid er: ELISEO MCCANN Referr ing Provid er: ELISEO MCCANN Admitt ing Provid er: ELISEO MCCANN [email or web address] [facility] - [facility] Therapy [address] [place] [address], [place], [address], 03/07/2025 11:08:17 03/05/20 25 03/05/2025 CT, abdom en + pelvi s, w/ contr ast [facility] [address] [place] [address] Phone: Fax: Name: SUSANNAH KIM Exam Date: 03/05/20 : 1944 Age 79 years Gender : M Access ion: [id number] Physic cindy: ELISEO Murillo SIOBHAN Facili ty: [facility] Facili ty HSV: Outpat ient Exam: [...] upper lobe anteri deangelo and in the wooden shade hardware installer ior medial left upper lobe. Linear atelec [...] ies in the right upper lobe and wooden shade hardware installer ior left upper lobe charac terist ic [...] you for referr ing SUSANNAH KIM to [facility]. Legall y authen ticate d by BROOKE Michel 03-05 09:38: 58 CC'ed Logic: Orderi ng Provid er: ELISEO MCCANN Attend ing Provid er: ELISEO MCCANN Referr ing Provid er: ELISEO MCCANN Admitt ing Provid er: ELISEO MCCANN [email or web address] [facility] [address] [place] [address], [address], 03/07/2025 11:08:17 03/07/2003/05/2025 CT, neck, soft tissu e, w/ [facility] [address] [place] [address] Phone: Fax: Name: SUSANNAH KIM Exam Date: 03/05/20 : 1944 Age 79 years Gender : M Access ion: [id number] Physic cindy: SIOBHAN MCGOVERN Facili ty: [facility] Facili ty HSV: Outpat ient Exam: [...] [facility]. Legall y authen ticate d by ROEL GALEANA 03-05 09:38: 47 CC'ed Logic: Orderi ng Provid er: ELISEO MCCANN Attend ing Provid er: ELISEO MCCANN Referr ing Provid er: ELISEO MCCANN Admitt ing Provid er: ELISEO MCCANN [email or web address] [facility] [address] [facility], [place], [address], 03/07/2025 11:07:53 04/06/20 25 04/06/2025 CT, neck, soft tissu e, w/ contr ast [facility] [address] [place] [address] Phone: Fax: Name: SUSANNAH KIM Exam Date: 04/06/20 : 1944 Age 79 years Gender : M Access ion: [id number] Physic cindy: MEGAN SPRINGER [place] Facili ty HSV: Outpat ient Exam: CT NECK SOFT TISSUE WITH PROCED URE DESCRI PTION: CT NECK SOFT TISSUE WITH IV CONTRA [facility] INDICA TION: Paroti d gland inflam mation . Histor y of laryng eal cancer . COMPAR PATTI: CT Neck and chest from 2024 and PET/CT s from 12/04/19.. The CT exam was perfor med using one or more of the follow ing dose reduct ion techni ques: Automa carlos exposu re contro l, adjust ment of the mA and/or kV accord ing to the patien t's size, or use of iterat tony recons tructi on techni que. FINDIN GS: [...] than right with extens ion along the wooden shade hardware installer ior aspect of the larynx across midlin [...] left side greate r than right. IMPRES TONY: 1. Stable irregu larity and thicke marcella involv ing the tongue base, left side greate r than right extend ing into the left preepi glotti c space. 2. Stable appear ance involv ing the suprag lottic larynx extend ing across the wooden shade hardware installer ior midlin e consis tent with the [...] signed by: RAPHAEL MCKEON 04/06/20 Legall y jhon rosas d by SANJUANA LOVETT W 04-06 15:08: 58 Thank you for referr SUSANNAH Jacques to [facility]. Legall pawan rosas d by SANJUANA LOVETT W 04-06 15:08: 58 CC'ed Logic: Orderi ng Provid er: RACHEAL GUZMAN Attend ing Provid er: RACHEAL GUZMAN Referr ing Provid er: RACHEAL GUZMAN Admitt ing Provid er: RACHEAL GUZMAN [email or web address] [facility] [address], [place], [address], 04/09/2025 11:24:10 Result Notes None recorded. Procedures Surgical History Date Name Laterality Status Provider Name and Address Organization Details Recorded Time open heart surgery completed Janeth Anderson [facility] [place] 02/14/2024 09:56:24 operative procedure on knee completed Kristine Gipson [facility] [place] 04/05/2024 13:20:11 Imaging Results None recorded. Procedure Notes None recorded. Medical Equipment None Reported. Allergies Allergen ID Allergen Name Allergen Category Reaction Reaction Severity Criticality Documentation Date Start Date Code Code System Note Provider Name and Address Organization Details Recorded Time 789272 Product containin g penicilli n (product) medicatio n hives Not available Not available 02/06/2025 07726 8001 SNOMED Jackie [facility] [place] 08:40:08 Medications Name Sig Start Date Stop [...] Not Available Not Available No t Available [facility] active Not Available [...] Updated DateTime 5 180.34 cm 23.8 kg/m2 90750.5 8 g 97.8 [degF] 94 % 94 % 70 /min 100 mm[Hg] 59 mm[Hg] Gonzalo [facility] [place] 08:19:37 Social History Question Answer Notes LastModified by Organizat ion Details LastModified Time Tobacco Smoking Status Current Every Day Smoker PATIRCK Fernandez [facility] [place] 02/14/2024 09:56:11 What Is Your Level Of Caffeine Consumption? Occasional [email or web address] Information not available 04/05/2024 What Was The Date Of Your Most Recent Tobacco Screening? 04/05/2024 [email or web address] Information not available 04/05/2024 At What Age Did You Start Smoking Tobacco? 8 [email or web address] Information not available 02/14/2024 How Much Tobacco Do You Smoke? 1 PPD [email or web address] Information not available 02/14/2024 How Many Years Have You Smoked Tobacco? 69 [email or web address] Information not available 02/14/2024 Sex: Unknown Functional Status Question Answer Note LastModified by Organizat ion Details LastModified Time Do you use any illicit or recreational drugs? No [email or web address] Information not available 02/14/2024 Do you or have you ever used any other forms of tobacco or nicotine? No [email or web address] Information not available 04/05/2024 What is your level of alcohol consumption? None [email or web address] Information not available 02/14/2024 Mental Status None recorded. Family History Nothing Reported. Medical History No medical history recorded. Immunizations Vaccine Type Date Status Note Provider Nam e and Address Organization Details Recorded Time COVID-19 vaccine, vector-nr, rS-Ad26, PF, 0.5 mL 1 completed PATRICK Rodríguez [facility] [place] 04/05/2024 13:16:44 Influenza, split virus, trivalent, preservative 9 completed PATRICK Rodríguez - [place] & [place] 04/05/2024 13:16:44 Past Encounters Encounter ID Performer Location Encounter Start Date Encounter Closed Date Diagnosis/Indication Diagnosis SNOMED-CT Code Diagnosis ICD10 Code Diagnosis Note [id number] Siobhan Shannon PA-C [facility] [address] [place] [address] 02/01/2025 08:35:14 02/01/2025 09:24:21 Immunological therapy 89480680 Z51.12 Cycle 1 of Keytruda on April [...] toxicity. Squamous c ell carcinoma of larynx 915419432 C32.9 CT scan on November 24, 2023 [...] response. Will request P 16 results from [facility]. Discussed additional testing with on [...] that time. Metastatic malignant neoplasm to lung 78764964 C78.01 PET scan performed on December 22, [...] cm with no significan t uptake. Hypomagnesemia 998491726 E83.42 Currently taking daily magnesium. Will follow-up labs today Constipation 59931086 K5 9.00 Patient has had constipati on is taking MiraLax and bowel movements have improved a little with this. Prescripti on sent for Linzess. Cobalamin deficiency 190 257752 E53.8 History of vitamin B12 deficiency . He is currently receiving monthly vitamin B12. Labs on June 08, 2024 with vitamin B12 normal at 426. Normal folic acid. Will follow up labs today. Severe dry skin 20834173 2 L85.3 Patient with dry pruritic skin. No rash. Discussed using moisturize r with Aquaphor and Aveeno body wash. He is using moisturize r with Aquaphor and Aveeno body wash with improvemen t of dry skin. Nausea and vomiting 1692 1999 R11.2 Prescribed Zofran as needed. [id number] Claudia Childs MD [facility] Gen Surg NEW [address] [place] [address] 02/06/2025 08:26:36 02/06/2025 08:58:51 Irreducible inguinal hernia 130107122 K40.30 Right inguinal hernia containing chronicall y [...] minutes. Squamous c ell carcinoma of larynx 963659781 C32.9 Patient with stage IVC squamous cell [...] surgical options. Metastatic malignant neoplasm to lung 72623930 C78.01 [id number] Siobhan Shannon PA-C [facility] [address] [place] [address] 02/22/2025 08:09:06 02/22/2025 08:44:34 Immunological therapy 93103613 Z51.12 Cycle 1 of Keytruda on April [...] toxicity. Squamous c ell carcinoma of larynx 442874321 C32.9 CT scan on November 24, 2023 [...] response. Will request P 16 results from [facility]. Discussed additional testing with on [...] and pelvis. Metastatic malignant neoplasm to lung 02062628 C78.01 PET scan performed on December 22, [...] cm with no significan t uptake. Hypomagnesemia 299198052 E83.42 Currently taking daily magnesium. Will follow-up labs today Constipation 45151040 K5 9.00 Patient has had constipati on is taking MiraLax and bowel movements have improved a little with this. Prescripti on sent for Linzess. Cobalamin deficiency 190 996798 E53.8 History of vitamin B12 deficiency . He is currently receiving monthly vitamin B12. Labs on June 08, 2024 with vitamin B12 normal at 426. Normal folic acid. Will follow up labs today. Severe dry skin 66383911 2 L85.3 Patient with dry pruritic skin. No rash. Discussed using moisturize r with Aquaphor and Aveeno body wash. He is using moisturize r with Aquaphor and Aveeno body wash with improvemen t of dry skin. Nausea and vomiting 1693 1999 R11.2 Prescribed Zofran as needed. Health Concerns Section Related Observation LastModified by Organization Detai ls LastModified Time None Recorded Concern Status LastModified by Organization Details LastModified Time None Recorded Payers Encounter Date Sequence Insurance Name Policy Number Policy Lockhart Covered Member ID Lockhart Member ID Guarantor Name 02/22/2025 2 [employer] [facility] (MEDICAID HMO) [facility] [id number] [facility] 02/22/2025 1 [facility] (MEDICARE REPLACEMENT/A DVANTAGE - HMO) [place]REECE Currie [facility] [id number] Vamsi 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 Patient presented to [facility] for evaluation with ENT in November [...] response. Will request P 16 results from [facility]. Discussed additional testing with on [...] disease evident. Patient states he went to [facility] due to urinary retention. He was diagnosed [...] schedule CT neck chest abdomen and pelvis. iSobhan Shannon PA-C [address], [place], [address], [place] [facility] [place] [facility] [place] 02/22/2025 08:56:08
--- OUTSIDE RECORDS SUMMARY | 2025-04-13 13:18 | XMS_ITS | Encounter Summary ---
Author Organization Healthcare Address [address] [place] [address] Care Team Providers Care Remelt Furnace Expediter Name Role Phone Efrain Sarah MD Unavailable [phone] Aris Lynch MD Unavailable [phone] Drew Howell MD Primary Care Provider [phone] Toñito Huerta MD Unavailable [phone] Encounter Details Date Type Department Care Team (Late Contact Info) Description 02/21/2024 Lab Requisition [facility] [address] [place] [address] Drea Loera MD [address] [place] [address] Malignant neoplasm of larynx, unspecified (CMS/HCC) Social History Tobacco Use Types Packs/Day Years Used Date Smoking Tobacco: Every Day Cigarettes 1 71.4 Started: 1952 Smokeless Tobacco: Never Comments:Trying to quit Alcohol Use Standard Drinks/Week Comments Never 0 (1 standard drink = 0.6 oz pur e alcohol) Sex and Gender Information Value Date Recorded Sex Assigned at Not on file Legal Sex Male 8:37 PM EDT Gender Identity Not on file Sexual Orientation Not on file documented as of this encounter Plan of Treatment Upcoming Encounters Date Type Department Care Team (Late Contact Info) Description 06/05/2025 12:30 PM EDT Consult [facility] General Surgery [address] [place] [address] Marta Verma MD [address] [place] [address] documented as of this encounter Procedures Procedure Name Priority Date/Time Associated Diagnosis Comments AP MISCELLANEOUS LAB TEST (SO) Routine 02/21/2024 12:00 AM EDT Malignant neoplasm of larynx, unspecified (CMS/HCC) documented in this encounter Results * - AP Miscellaneous Test (02/21/2024 12:00 AM EDT) Test name xT Panel, PDL1-Tempu s 03/08/2024 1:03 PM EDT [facility] Comment:[id number] Test Result see scan 03/08/2024 1:03 PM EDT [facility] See Scanned Result 03/08/2024 1:03 PM EDT [facility] Tissue 02/21/2024 02/21/2024 9:5 3 AM EDT us Drea Loera MD LAB REF LAB BLOOD AND FLUID OR D Final Result [facility] [address] [place] [address] documented in this encounter Visit Diagnoses Diagnosis Malignant neoplasm of larynx, unspecified (CMS/HCC) documented in this encounter Additional Health Concerns Assessment Noted Time A fall risk assessment has been complete d for the patient 01/19/2024 10:49 AM EDT A Body Mass Index follow-up plan has been documented for the patient 01/01/2024 10:12 AM EST documented as of this encounter Care Teams Remelt Furnace Expediter Relationship Specialty Start Date End Date Drew Howell MD [address] [place] [address] [address] [place] [address] PCP - General 12/23/23 Efrain Sarah MD [facility] [address] [email or web address] [place] [address] 12/02/23 Aris Lynch MD [address] [facility] Cancer [address] [phone] Surgeon Otolaryngology 12/02/23 Toñito Huerta MD [address] [phone] Consulting Physician Medical Oncology 01/18/24 documented as of this encounter
--- OUTSIDE RECORDS SUMMARY | 2025-04-13 13:18 | XMS_ITS | Encounter Summary ---
Author Organization Healthcare Address [address] [place] [address] Care Team Providers Care Polishing Wheel Setter Name Role Phone Efrain Sarah MD Unavailable [phone] Aris Lynch MD Unavailable [phone] Drew Howell MD Primary Care Provider [phone] Toñito Huerta MD Unavailable [phone] Encounter Details Date Type Department Care Team (Late Contact Info) Description 03/05/2025 Orders Only External Location [address] [place] [address] Provider, External Social History Tobacco Use Types Packs/Day Years [...] Info) Description 06/05/2025 12:30 PM EDT Consult [facility] [address] [place] [address] Marta Verma MD [address] [place] [address] documented as of this encounter Procedures Procedure Name Priority Date/Time Associated Diagnosis Comments CT NEURO OUTSIDE IMAGES 03/05/2025 9:22 AM EDT documented in this encounter Results * CT NEURO OUTSIDE IMAGES (03/05/2025 9:22 AM EDT) Anatomical Region Laterality Modality Computed Tomogra phy 03/05/2025 9:22 AM EDT us External Provider IMG CT PROCEDURES Final Result documented in this encounter Visit Diagnoses Not on filedocumented in this encounter Additional Health Concerns Assessment Noted Time A fall risk assessment has been complete d for the patient 01/19/2024 10:49 AM EDT A Body Mass Index follow-up plan has been documented for the patient 01/01/2024 10:12 AM EST documented as of this encounter Care Teams Polishing Wheel Setter Relationship Specialty Start Date End Date Drew Howell MD [address] [place] [address] [address] [place] [address] PCP - General 12/23/23 Efrain Sarah MD [address] [place] [address] 12/02/23 Aris Lynch MD [address] [place] [address] [address] Surgeon Otolaryngology 12/02/23 Toñito Huerta MD [address] [place] [address] Consulting Physician Medical Oncology 01/18/24 documented as of this encounter
--- OUTSIDE RECORDS SUMMARY | 2025-04-13 13:18 | XMS_ITS | Clinical Summary ---
Author Organization [employer] Address [address] [place] [address] Care Team Providers Care Musical Instrument Maker Name Role Phone Unavailable Primary Care Provider [...] Date Luis rded Speak language other than [place] at home Not on file 12/01/2023 Want [...] 70 12/01/2023 12:35 PM EST Temperature 36.6 C (97.9 F) 12/01/2023 12:06 PM EST Respiratory Rate 18 12/01/2023 12:35 PM EST Oxygen Saturation 95% 12/01/2023 12:35 PM EST Inhaled Oxygen Concentration - - Weight 74.7 kg (164 lb 9.6 oz) 12/01/2023 10:02 AM EST Height 185.4 cm (6' 1 ) 12/01/2023 10:02 AM EST Body Mass Index 21.72 12/01/2023 10:02 AM EST Plan of Treatment Health Maintenance Due Date Last Done Comments Diabetic Kidney Health Evaluation (KED) 1946 Diabetic Eye Exam 1956 Diabetic foot exam 1956 Depression Screening (12+) 1958 Hepatitis C Screening 1964 DTAP/TDAP/TD VACCINES (1 - Tdap) 1965 Shingles Vaccine (Zoster) (1 of 2) 1996 Pneumococcal 50+ years (2 of 2 - PCV) 11/01/201411/2013, 11/01/2012 Respiratory Syncytial Virus (RSV) Adult or (1 - 1-dose 75+ series) 2021 Hemoglobin A1C 12/01/2023 COVID-19 VACCINE (2 - season) 2024 Falls Risk Screening 11/01/2024 Tobacco Cessation Counseling and Screening (12+) 12/01/2024 12/01/2023 Influenza Vaccine (Season Ended) 2025 09/14/20 09 Medical Devices Implanted Type Area Linker Up Device Identifier Shelf Expiration Date Model / Serial / Lot Pacemakers Pacemakers Insurance DUAL COMPLETE [facility]CR [facility]
--- OUTSIDE RECORDS SUMMARY | 2025-04-13 13:18 | XMS_ITS | Referral Summary ---
Author Organization [employer] Address [address] [place] [address] Care Team Providers Care Band Reamer Machine Operator Name Role Phone Unavailable Primary Care Provider [...] Date Luis rded Speak language other than American at home Not on file 12/01/2023 Want [...] on file Medical Devices Implanted Type Area Apartment Community Manager Device Identifier Shelf Expiration Date Model / Serial / Lot Pacemakers Pacemakers Insurance DUAL COMPLETE MCR ADV AETNA [facility]
--- OUTSIDE RECORDS SUMMARY | 2025-04-13 13:18 | XMS_ITS | Encounter Summary ---
Author Organization Healthcare Address [address] [place] [address] Care Team Providers Care Technical Support Specialist Name Role Phone Pcp, No Primary Care Provider Unavailabl e Efrain Sarah MD Unavailable [phone] Aris Lynch MD Unavailable [phone] Pcp, No Primary Care Provider Unavailabl e Drew Howell MD Primary Care Provider [phone] Anjelica Keys MD Unavailable [phone] Toñito Huerta MD Unavailable [phone] Encounter Details Date Type Department Care Team (Late st Contact Info) Description 11/24/2023 Orders Only External Location [address] [place] [address] Camryn Meadows, DO [address] [place] [address] Social History Tobacco Use Types Packs/Day Years Used Date Smoking Tobacco: Heavy Smoker Sex and Gender Information Value Date Recorded Sex Assigned at Not on file Legal Sex Male 8:37 PM EDT Gender Identity Not on file Sexual Orientation Not on file documented as of this encounter Plan of Treatment Upcoming Encounters Date Type Department Care Team (Late st Contact Info) Description 06/05/2025 12:30 PM EDT Consult [facility] [address] [place] [address] Marta Verma MD [address] [place] [address] documented as of this encounter Procedures Procedure Name Priority Date/Time Associated Diagnosis Comments CT SOFT TISSUE NECK W IV CONTRAST 11/24/2023 3:11 PM EST documented in this encounter Results * CT Soft Tissue Neck w IV Contrast (11/24/2023 3:11 PM EST) Anatomical Region Laterality Modality Neck Computed Tomogra phy 11/24/2023 3:11 PM EST Camryn Meadows DO IMG CT PROCEDURES Final Result documented in this encounter Visit Diagnoses Not on filedocumented in this encounter Care Teams Technical Support Specialist Relationship Specialty Start Date End Date Pcp, No [address] [place] [address] PCP - General 05/01/21 12/07/23 Pcp, No [address] [place] [address] PCP - General Family Medicine 12/08/23 12/22/23 Drew Howell MD [address] [facility] [address] [place] [address] PCP - General 12/23/23 Efrain Sarah MD [address] [place] [address] 12/02/23 Aris Lynch MD 800 [facility] Cancer [address] [address] Surgeon Otolaryngology 12/02/23 Anjelica Keys MD 800 [facility] [address] [place] [address] Consulting Physician Medical Oncology 01/13/24 01/17/24 Toñito Huerta MD [address] [phone] Consulting Physician Medical Oncology 01/18/24 documented as of this encounter
--- OUTSIDE RECORDS SUMMARY | 2025-04-13 13:18 | XMS_ITS | Continuity of Care Document ---
Author Organization [facility] Address [address] [place] [address] Care Team Providers Care Fine Arts Model Name Role Phone DESI VALDERRAMA Radiation Oncologist Assessment No assessment recorded. Plan of Treatment Reminders Order Date Submit Date Provider Last Modified By Organization Details Last Modified Time Details Appointments None recorded. Lab None recorded. Referral None recorded. Procedures None recorded. Surgeries None recorded. Imaging CT, neck, soft tissue, w/ contrast - repeat CT following holding keytruda. 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 04/04/ 025 [facility] (Centralized Scheduling), [address] [facility], [place], [address], 5 15:13:39 Medication Orders None recorded. Patient TargetsNo targets recorded. Patient InstructionsNo instructions recorded. Reason for Referral None Reported. Results Created Date Observation Date Name Description Value Unit Range Abnormal Flag Note LastModifiedBy Organization Detail LastModifiedTime 03/05/20 25 03/05/2025 CT, chest , w/ contr ast [facility] [address] [place] [address] Phone: Fax: Name: SUSANNAH KIM Exam Date: 03/05/20 25 : 1944 Age 79 years Gender : M Access ion: [id number] Physic cindy: SIOBHAN MCGOVERN Facili ty: [facility] Facili ty HSV: Outpat ient Exam: CT [...] upper lobe anteri deangelo and in the clay miner ior medial left upper lobe. Linear atelec [...] ies in the right upper lobe and clay miner ior left upper lobe charac terist ic [...] is stable measur ing 2.7 cm in [facility] er. The stomac h and small [...] Legall y authen ticate d by BROOKE Mcihel 03-05 09:39: 13 pneumo perito neum. There [...] Peters 03/05/20 Thank you for referr ing PHONG THSUSANNAH Y to [facility]. Legall y authen ticate d by BROOKE Michel 03-05 09:39: 13 CC'ed Logic: Orderi ng Provid er: ELISEO MCCANN Attend ing Provid er: ELISEO MCCANN Referr ing Provid er: ELISEO MCCANN Admitt ing Provid er: ELISEO MCCANN [email or web address] [facility] [address] [facility], [place], [address], 03/07/2025 11:08:17 03/05/20 25 03/05/2025 CT, abdom en + pelvi s, w/ contr ast [facility] [address] [facility] [place] [address] Phone: Fax: Name: SUSANNAH KIM Exam Date: 03/05/20 : 1944 Age 79 years Gender : M Access ion: [id number] Physic cindy: SIOBHAN MCGOVERN Facili ty: [facility] Facili ty HSV: Outpat ient Exam: CT [...] upper lobe anteri deangelo and in the clay miner ior medial left upper lobe. Linear atelec [...] ies in the right upper lobe and clay miner ior left upper lobe charac terist ic [...] you for referr ing SUSANNAH KIM to [facility]. Legall y authen ticate d by BROOKE Michel 03-05 09:38: 58 CC'ed Logic: Orderi ng Provid er: ELISEO MCCANN Attend ing Provid er: ELISEO MCCANN Referr ing Provid er: ELISEO MCCANN Admitt ing Provid er: ELISEO MCCANN [email or web address] [facility] [address] [place] [address], [place], [address], 03/07/2025 11:08:17 03/07/20 25 03/05/2025 CT, neck, soft tissu e, w/ contr ast [facility] [address] [place] [address] Phone: Fax: Name: SUSANNAH KIM Exam Date: 03/05/20 25 : 1944 Age 79 years Gender : M Access ion: [id number] Physic cindy: HENEGA R, SIOBHAN Facili ty: [facility] Facili ty HSV: Outpat ient Exam: [...] area. Electr onical ly signed by: Tomi Lejia MD 2024 10:11 AM EDT RP Workst ation: [id number] Dictat ed By: Tomi Leija Transc ribed By: Transc ribed On: 03/05/20 9:38 AM Electr onical ly signed by: RoelTomi 03/05/20 [facility] Legall y authen ralph d by ROEL GALEANA 03-05 09:38: 47 CC'ed Logic: Orderi ng Provid er: ELISEO MCCANN Attend ing Provid er: ELISEO MCCANN Referr ing Provid er: ELISEO MCCANN Admitt ing Provid er: ELISEO MCCANN [email or web address] [facility] [address] [facility], [place], [address], 03/07/2025 11:07:53 04/06/2004/06/2025 CT, neck, soft tissu e, w/ [facility] [address] [facility] [place] [address] Phone: Fax: Name: SUSANNAH KIM Exam Date: 04/06/20 : 1944 Age 79 years Gender : M Access ion: [id number] Physic cindy: EVANGELIST SPRINGER Facili ty: [facility] Facili ty HSV: Outpat ient Exam: CT [...] than right with extens ion along the clay miner ior aspect of the larynx across midlin [...] suprag lottic larynx extend ing across the clay miner ior midlin e consis tent with the [...] 15:08: 58 Thank you for referr ing SUSANNAH KIM to [facility]. Legall y authen ticate d by SANJUANA Musa 04-06 15:08: 58 CC'ed Logic: Orderi ng Provid er: RACHEAL GUZMAN Attend ing Provid er: RACHEAL GUZMAN Referr ing Provid er: RACHEAL GUZMAN Admitt ing Provid er: RACHEAL GUZMAN [email or web address] [facility] [address] [facility], [place], [address], 04/09/2025 11:24:10 Result Notes None recorded. Procedures Surgical History Date Name Laterality Status Provider Name and Address Organization Details Recorded Time open heart surgery completed Janeth Anderson [facility] [place] 02/14/2024 09:56:24 operative procedure on knee completed Kristine Gipson [facility] [place] 04/05/2024 13:20:11 Imaging Results None recorded. Procedure Notes None recorded. Medical Equipment None Reported. Allergies Allergen ID Allergen Name Allergen Category Reaction Reaction Severity Criticality Documentation Date Start Date Code Code System Note Provider Name and Address Organization Details Recorded Time 350729 Product containin g penicilli n (product) medicatio n hives Not available Not available 02/06/2025 51623 2999 SNOMED Jackie Yuli price [facility] [place] 5 08:40:08 Medications Name Sig Start Date Stop [...] Not Available Not Available No t Available [facility] [place]- [facility]. Springer active Not Available Not Available No t Available Trulicity 1.5 mg/0.5 mL subcutaneou s pen injector INJECT THE CONTENTS OF 1 PEN (1.5 MG / 0.5ML) SUBCUTANE OUSLY ONCE A WEEK DIRECTED active Not Available Not Available No t Available Vitals Date Recorded Body height Body temperature Oxygen saturation Oxygen saturation in Arterial blood by Pulse oximetry Heart rate Systolic blood pressure Diastolic blood pressure Provider Name and Address Organization Details Last Updated DateTime 5 180.34 cm 97.6 [degF] 96 % 96 % 70 /min 102 mm[Hg] 64 mm[Hg] Kristine Gipson PATRICK ADHIKARI [facility] [place] 5 08:13:31 Social History Question Answer Notes LastModified by [employer] ion Details LastModified Time Tobacco Smoking Status Current Every Day Smoker PATRICK Fernandez [facility] [place] 02/14/2024 09:56:11 What Is Your Level Of Caffeine Consumption? Occasional [email or web address] Information not available 04/05/2024 What Was The Date Of Your Most Recent Tobacco Screening? 04/05/2024 [email or web address] Information not available 04/05/2024 At What Age Did You Start Smoking Tobacco? 8 [email or web address] Information not available 02/14/2024 How Much Tobacco Do You Smoke? 1 PPD [email or web address] Information not available 02/14/2024 How Many Years Have You Smoked Tobacco? 69 [email or web address] Information not available 02/14/2024 Sex: Unknown Functional Status Question Answer Note LastModified by [employer] ion Details LastModified Time Do you use any illicit or recreational drugs? No [email or web address] Information not available 02/14/2024 Do you or have you ever used any other forms of tobacco or nicotine? No [email or web address] Information not available 04/05/2024 What is your level of alcohol consumption? None [email or web address] Information not available 02/14/2024 Mental Status None recorded. Family History Nothing Reported. Medical History No medical history recorded. Immunizations Vaccine Type Date Status Note Provider Nam e and Address Organization Details Recorded Time COVID-19 vaccine, vector-nr, rS-Ad26, PF, 0.5 mL 1 completed Kristine Gipson dee PATRICK ADHIKARI [facility] [place] 04/05/2024 13:16:44 Influenza, split virus, trivalent, preservative 9 completed Kristine price PATRICK Kristina ADHIKARI [facility] [place] 04/05/2024 13:16:44 Past Encounters Encounter ID Performer Location Encounter Start Date Encounter Closed Date Diagnosis/Indication Diagnosis SNOMED-CT Code Diagnosis ICD10 Code Diagnosis Note [id number] Siobhan Shannon PA-C [facility] H[facility] [address] [place] [address] 02/22/2025 08:09:06 02/22/2025 08:44:34 Immunological therapy 07846730 Z51.12 Cycle 1 of Keytruda on April [...] toxicity. Squamous c ell carcinoma of larynx 732932439 C32.9 CT scan on November 24, 2023 [...] response. Will request P 16 results from [facility]. Discussed additional testing with on peripheral [...] and pelvis. 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 Hypomagnesemia 902207098 E83.42 Currently taking daily magnesium. Will follow-up labs today Constipation 83042356 K5 9.00 Patient has had constipati on is taking MiraLax and bowel movements have improved a little with this. Prescripti on sent for Marleen. Cobalamin deficiency 190 998696 E53.8 History of vitamin B12 deficiency . He is currently receiving monthly vitamin B12. Labs on June 08, 2024 with vitamin B12 normal at 426. Normal folic acid. Will follow up labs today. Severe dry skin 85576290 2 L85.3 Patient with dry pruritic skin. No rash. Discussed using moisturize r with Aquaphor and Aveeno body wash. He is using moisturize r with Aquaphor and Aveeno body wash with improvemen t of dry skin. Nausea and vomiting 1693 1999 R11.2 Prescribed Zofran as needed. [id number] Evangelist Springer MD [facility]cology and Hematolog y [address] [place] [address] 03/14/2025 08:01:03 03/14/2025 08:41:05 Immunological therapy 33604116 Z51.12 Cycle 1 of Keytruda on April [...] toxicity. Squamous c ell carcinoma of larynx 467691312 C32.9 CT scan on November 24, 2023 [...] response. Will request P 16 results from [facility]. 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 Hypomagnesemia 480616614 E83.42 Currently taking daily magnesium. Will follow-up labs today Constipation 09991876 K5 9.00 Patient has had constipati on is taking MiraLax and bowel movements have improved a little with this. Prescripti on sent for Marleen. Cobalamin deficiency 190 614923 E53.8 History of vitamin B12 deficiency . He is currently receiving monthly vitamin B12. Labs on June 08, 2024 with vitamin B12 normal at 426. Normal folic acid. Will follow up labs today. Severe dry skin 99389764 2 L85.3 Patient with dry pruritic skin. No rash. Discussed using moisturize r with Aquaphor and Aveeno body wash. He is using moisturize r with Aquaphor and Aveeno body wash with improvemen t of dry skin. Nausea and vomiting 1693 2000 R11.2 Prescribed Zofran as needed. Parotitis 26866452 K11.[address] scan of the neck [...] Member ID Lockhart Member ID Guarantor Name 03/14/2025 2 [facility] ([facility]ICA[facility] H[facility]) Vamsi [facility] [id number] Vamsi [facility] 03/14/[address] 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 Patient presented to [facility] for evaluation with ENT in November [...] response. Will request P 16 results from [facility]. Discussed additional testing with on peripheral [...] disease evident. Patient states he went to [facility] due to urinary retention. He was diagnosed [...] to potentially resume Keytruda. Will follow-up Evangelist Springer MD [address], [place], [address], [place] [facility] [place] 03/14/2025 08:48:46
--- OUTSIDE RECORDS SUMMARY | 2025-04-13 13:18 | XMS_ITS | Clinical Summary ---
Author Organization [facility] Address [address] [place] [address] Care Team Providers Care Stitch Rubber Name Role Phone Efrain Sarah MD Unavailable [phone] Aris Lynch MD Unavailable [phone] Drew Howell MD Primary Care Provider [phone] Toñito Huerta MD Unavailable [phone] Allergies Active Allergy Reactions Criticality Noted [...] Date Malignant neoplasm of larynx 12/29/2023 01/04/2024 Encounters Date Type Department Care Team Description 03/05/2025 Orders Only External Location [address] [place] [address] Provider, External from Last 3 Months Immunizations Immunization Administration Dates Next Due Influenza, seasonal, injectable [...] 1 71.4 Started: 1952 Smokeless Tobacco: Never Tobacco Cessation:Ready [...] 70 01/19/2024 10:47 AM EDT Temperature 35.7 C (96.3 F) 01/19/2024 8:34 AM EDT Respiratory Rate 16 01/19/2024 10:47 AM EDT Oxygen Saturation 94% 01/19/2024 10:47 AM EDT Inhaled Oxygen Concentration - - Weight 75.9 kg (167 lb 5.3 oz) 01/19/2024 10:47 AM EDT Height 185.4 cm (6' 1 ) 01/19/2024 10:47 AM EDT Body Mass Index 22.08 01/19/2024 10:47 AM EDT Plan of Treatment Upcoming Encounters Date Type Department Care Team (Late st Contact Info) Description 06/05/2025 12:30 PM EDT Consult [facility] General Surgery [address] [place] [address] Marta Verma MD [address] [place] [address] Health Maintenance Due Date Last Done Comments [facility]-Depression Screening 1945 [facility]-Hepatitis C Screening 1945 [facility]-Medicare Annual Wellness (AWV) 1945 [facility]-Infant/Child/Adol SDOH Screenings 1945 [facility]- SDOH Screenings 1964 [facility]-Adult SDOH Screenings 1964 [facility]-DTaP,Tdap,and Td Vaccines (1 - Tdap) 1965 [facility]-Zoster Vaccines (1 of 2) 1965 [facility]-Pneumococcal Vaccine: 50+ Years (3 of 3 - PCV) 11/01/2014 11/01/2013, 11/01/2012 [id number] Vaccine (2 - Chyna risk series) 07/16/2021 06/18/2021 [facility]-RSV Vaccine: 60+ Years or (1 - 1-dose 75+ series) 2021 [facility]-Influenza Vaccine (Season Ended) 2025 11/01/2013, 11/01/2012, 09/14/2009 [facility]-Lung Cancer Screening Discontinued 12/08/2023 HPV Vaccines Aged Out No longer eligi ble based on patient's age to complete this topic [facility]-HIB Vaccines Aged Out No longer e [...] NEURO OUTSIDE IMAGES 03/05/2025 9:[address] CHEST W IV CONTRAST Routine 12/08/2023 11:54 AM EST 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) from Last 3 Months or Most Recently Relevant to Health Maintenance Results * CT NEURO OUTSIDE IMAGES (03/05/2025 9:22 AM EDT) Anatomical Region Laterality Modality Computed Tomogra phy 03/05/2025 9:22 AM EDT us External Provider IMG CT PROCEDURES Final Result * CT Chest w [...] Most Recently Relevant to Health Maintenance Insurance [facility]NA [facility] MEDICAID [facility] MEDIC[facility] Care Teams Stitch Rubber Relationship Specialty Start Date End Date Drew Howell MD [address] [place] [address] [address] [place] [address] PCP - General 12/23/23 Efrain Sarah MD [address] [place] [address] 12/02/23 Aris Lynch MD [address] [facility] [address] [address] Surgeon Otolaryngology 12/02/23 Toñito Huerta MD [address] [place] [address] Consulting Physician Medical Oncology 01/18/24
== END 2025-04-13 23:59 | disposition home or self-care (01) ==
LOC: RAD 13:15
PROVIDERS: PCP Family Medicine; Visit Provider Internal Medicine Pulmonary Disease
DX: R91.1 Solitary pulmonary nodule (principal)
CPT/HCPCS: 71250

== ENCOUNTER 2025-05-16 10:32 | Outpatient (CLI) | payer MEDICARE, OTHER, SELFPAY ==
--- OUTSIDE RECORDS SUMMARY | 2025-05-16 10:35 | XMS_ITS | Clinical Summary ---
Author Organization [facility] Address [address] [place] [address] Care Team Providers Care Cement Handler Name Role Phone Efrain Sarah MD Unavailable [phone] Aris Lynch MD Unavailable [phone] Drew Howell MD Primary Care Provider [phone] Toñito Huerta MD Unavailable [phone] Allergies Active Allergy Reactions Criticality Noted [...] 03/05/2025 Orders Only External Location [address] [place] [address] Provider, External from Last 3 Months Immunizations [...] Date Smoking Tobacco: Every Day Cigarettes 1 71.5 Started: 1952 Smokeless Tobacco: Never Tobacco Cessation:Ready [...] Info) Description 06/05/2025 12:30 PM EDT Consult [facility] General Surgery [address] [place] [address] Marta Verma MD [address] [place] [address] Health Maintenance Due Date Last Done Comments [facility]-Depression Screening 1945 [facility]-Hepatitis C Screening 1946 [facility]-Medicare Annual Wellness (AWV) 1946 [facility]-Infant/Child/Adol SDOH Screenings 1946 [facility]- SDOH Screenings 1964 [facility]-Adult SDOH Screenings 1964 [facility]-DTaP,Tdap,and Td Vaccines (1 - Tdap) 1965 [facility]-Zoster Vaccines (1 of 2) 1965 [facility]-Pneumococcal Vaccine: 50+ Years (3 of 3 - PCV) 11/01/2014 11/01/2013, 11/01/2012 [id number] Vaccine (2 - Chyna risk series) 07/16/2021 06/18/2021 [facility]-RSV Vaccine: 60+ Years or (1 - 1-dose 75+ series) 2021 [facility]-Influenza Vaccine (#1) 07/02/202511/01, 11/01/2012, 09/14/2009 [facility]-Lung Cancer Screening Discontinued 12/08/2023 [...] Recently Relevant to Health Maintenance Insurance [facility]NA [facility] MEDICAID [facility] MEDICARE Care Teams Cement Handler Relationship Specialty Start Date End Date Drew Howell MD [address] [place] [address] [address] [place] [address] PCP - General 12/23/23 Efrain Sarah MD [address] [place] [address] 12/02/23 Aris Lynch MD [address] [facility] Cancer [address] [address] Surgeon Otolaryngology 12/02/23 Toñito Huerta MD [address] [place] [address] Consulting Physician Medical Oncology 01/18/24
--- OUTSIDE RECORDS SUMMARY | 2025-05-16 10:35 | XMS_ITS | Encounter Summary ---
Author Organization Healthcare Address [address] [place] [address] Care Team Providers Care Wad Impregnator Name Role Phone Efrain Sarah MD Unavailable [phone] Aris Lynch MD Unavailable [phone] Drew Howell MD Primary Care Provider [phone] Toñito Huerta MD Unavailable [phone] Encounter Details Date Type Department Care Team (Late Contact Info) Description 03/05/2025 Orders Only External Location [address] [place] [address] Provider, External Social History Tobacco Use Types Packs/Day Years Used Date Smoking Tobacco: Every Day Cigarettes 1 71.5 Started: 1952 Smokeless Tobacco: Never Comments:Trying to [...] Info) Description 06/05/2025 12:30 PM EDT Consult [facility] General Surgery [address] [place] [address] Marta Vemra MD [address] [place] [address] documented as of this encounter Procedures Procedure [...] documented as of this encounter Care Teams Wad Impregnator Relationship Specialty Start Date End Date Drew Howell MD [address] [place] [address] [address] [place] [address] PCP - General 12/23/23 Efrain Sarha MD [address] [place] [address] 12/02/23 Aris Lynch MD [address] [place] [address] [address] Surgeon Otolaryngology 12/02/23 Toñito Huerta MD [address] [place] [address] Consulting Physician Medical Oncology 01/18/24 documented as of this encounter
--- OUTSIDE RECORDS SUMMARY | 2025-05-16 10:35 | XMS_ITS | Encounter Summary ---
Author Organization Healthcare Address [address] [place] [address] Care Team Providers Care Document Analyst Name Role Phone Pcp, No Primary Care Provider Unavailabl e Efrain Sarah MD Unavailable [phone] Aris Lynch MD Unavailable [phone] Pcp, No Primary Care Provider Unavailabl e Drew Howell MD Primary Care Provider [phone] Anjelica Keys MD Unavailable [phone] Toñito Huerta MD Unavailable [phone] Encounter Details Date Type Department Care Team (Late st Contact Info) Description 11/24/2023 Orders Only External Location [address] [place] [address] Camryn Meadows, DO [address] [place] [address] Social History Tobacco Use Types [...] Info) Description 06/05/2025 12:[address] [facility] General Surgery [address] [place] [address] Marta Verma MD [address] [place] [address] documented as of this encounter [...] on filedocumented in this encounter Care Teams Document Analyst Relationship Specialty Start Date End Date Pcp, No [address] [place] [address] PCP - General 05/01/21 12/07/23 Pcp, No [address] [place] [address] PCP - General Family Medicine 12/08/23 12/22/23 Drew Howell MD [address] [facility] [address] [place] [address] PCP - General 12/23/23 Efrain Sarah MD [address] [place] [address] 12/02/23 Aris Lynch MD 800 [facility] Cancer [address] [address] Surgeon Otolaryngology 12/02/23 Anjelica Keys MD 800 [facility] [address] [place] [address] Consulting Physician Medical Oncology 01/13/24 01/17/24 Toñito Huerta MD [address] [phone] Consulting Physician Medical Oncology 01/18/24 documented as of this encounter
--- OUTSIDE RECORDS SUMMARY | 2025-05-16 10:35 | XMS_ITS | Referral Summary ---
Author Organization [facility] ([place], [place], [place], [place]) Address [address] [place] [address] Care Team Providers Care Wildlife Forensic Geneticist Name Role Phone Unavailable Primary Care Provider [...] drink = 0.6 oz pur e alcohol) Food Insecurity Answer Date Recorded Food run [...] Date Luis rded Speak language other than Romanian at home Not on file 12/01/2023 Want help with school or training Not on file 12/01/2023 Substance Use Answer Date Recorded Used [...] on file Medical Devices Implanted Type Area Strategic Marketing Specialist Device Identifier Shelf Expiration Date Model / Serial / Lot Pacemakers Pacemakers Insurance DUAL COMPLETE MCR ADV AETNA [facility] [place]
--- OUTSIDE RECORDS SUMMARY | 2025-05-16 10:35 | XMS_ITS | Data Portability ---
Author Organization [facility] & ONOFRE Soriano ADMIN Address [address] [place] [id number] Care Team Providers Care Criminal Lawyer Name Role Phone DESI VALDERRAMA Radiation Oncologist Assessment No assessment recorded. Plan of Treatment Reminders Order Date Submit Date Provider Last Modified By Organization Details Last Modified Time Details Appointments None recorded. Lab CBC w/ diff 2024 025 [email or web address] [facility], [address] [place], [address], 09:14:18 CMP, serum or plasma 2024 025 JERICHO [facility], [address] [place], [address], 09:31:57 TSH, serum or plasma 2024 025 [email or web address] [facility], [address] [place], [address], 09:14:18 cortisol, am, serum 2024 025 [email or web address] [facility], [address] [place], [address], 5 09:14:18 TSH, serum or plasma 2024 025 [email or web address] 6 [facility], [address] [place], [address], 5 08:24:07 CBC w/ diff 2024 025 [email or web address] 6 [facility], [address] [place], [address], 5 08:24:07 CMP, serum or plasma 2024 025 [facility], [address] [place], [address], 5 09:03:11 magnesium, serum or plasma 2024 025 [email or web address] 6 [facility], [address] [place], [address], 5 08:24:07 vitamin B12 + folate, serum or blood 2024 025 [email or web address] 6 [facility], [address] [place], [address], 5 08:24:07 magnesium, serum or plasma 2024 025 [email or web address] 6 [facility], [address] [place], [address], 5 09:36:26 CMP, serum or plasma 2024 025 [facility], [address] [place], [address], 5 09:33:09 CBC w/ diff 2024 025 [email or web address] 6 [facility], [address] [place], [address], 5 09:36:25 TSH, serum or plasma 2024 025 [email or web address] 6 [facility], [address] [place], [address], 5 09:36:26 vitamin B12 + folate, serum or blood 2024 025 [email or web address] 6 [facility], [address] [facility] [place], [address], 09:36:26 Referral None recorded. Procedures None recorded. Surgeries None recorded. Imaging CT, neck, soft tissue, w/ contrast - repeat CT following holding keytruda. 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 please compare to early March 2025 ct neck to see if decrease in size. 2024 025 [facility] (Centralized Scheduling), [address], [place], [address], 5 15:13:39 CT, neck, soft tissue, w/ contrast 2024 025 [email or web address] [address] [place] [address] (Centralized Scheduling), [address], [place], [address], 5 09:01:35 CT, chest + abdomen + pelvis, w/ contrast 2024 [email or web address] [place] [address] (Centralized Scheduling), [address], [place], [address], 5 09:01:35 Medication Orders None recorded. Patient TargetsNo targets recorded. Patient InstructionsNo instructions recorded. Reason for Referral None Reported. Results Created Date Observation Date Name Description Value Unit Range Abnormal Flag Note LastModifiedBy Organization Detail LastModifiedTime 01/12/2001/11/2025 CBC AUTO W DIFF WBC 8.0 K/uL 4.0-10 .5 Not Available [facility] ([facility]) [address], [place], [address], 01/11/2025 09:16:39 01/12/2001/11/2025 CBC AUTO W DIFF RBC 4.8 M/mm3 4.7-6. 1 Not Available [facility] ([facility]) [address], [place], [address], 01/11/2025 09:16:39 01/12/20 25 01/11/2025 CBC AUTO W DIFF HGB 14.3 gm/dL 13.5-1 8.0 Not Available [facility] ([facility]) [address] , [place], [address], 01/11/2025 09:16:39 01/12/20 25 01/11/2025 CBC AUTO W DIFF HCT 43.7 % 42.0-5 2.0 Not Available [facility] ([facility]) [address] , [place], [address], 01/11/2025 09:16:39 01/12/20 25 01/11/2025 CBC AUTO W DIFF MCV 91.6 fL 78-100 Not Available [facility] ([facility]) [address] , [place], [address], 01/11/2025 09:16:39 01/12/20 25 01/11/2025 CBC AUTO W DIFF MCH 30.0 pg 27-31 Not Available [facility] ([facility]) [address] , [place], [address], 01/11/2025 09:16:39 01/12/20 25 01/11/2025 CBC AUTO W DIFF MCHC 32.7 g/dL 32-36 Not Available [facility] ([facility]) [address] , [place], [address], 01/11/2025 09:16:39 01/12/20 25 01/11/2025 CBC AUTO W DIFF RDW 14.0 % 11.5-1 4.0 Not Available [facility] ([facility]) [address] [place], [address], 01/11/2025 09:16:39 01/12/20 25 01/11/2025 CBC AUTO W DIFF platelet count 183 K/uL 150-45 0 Not Available [facility] ([facility]) [address], [place], [address], 01/11/2025 09:16:39 01/12/20 25 01/11/2025 CBC AUTO W DIFF MPV 10.2 fL 6-9.5 high Not Available [facility] ([facility]) [address], [place], [address], 01/11/2025 09:16:39 01/12/20 25 01/11/2025 CBC AUTO W DIFF neutrophil% 69.2 % 43-65 high Not Available [facility] ([facility]) [address], [place], [address], 01/11/2025 09:16:39 01/12/20 25 01/11/2025 CBC AUTO W DIFF lymphocyte% 23.3 % 20.5-4 5.5 Not Available [facility] ([facility]) [address] [place], [address], 01/11/2025 09:16:39 01/12/20 25 01/11/2025 CBC AUTO W DIFF monocyte% 5.0 % 5.5-11 .7 low Not Available [facility] ([facility]) [address] [place], [address], 01/11/2025 09:16:39 01/12/20 25 01/11/2025 CBC AUTO W DIFF eosinophil% 1.8 % 0.9-2. 9 Not Available [facility] ([facility]) [address] [place], [address], 01/11/2025 09:16:39 01/12/20 25 01/11/2025 CBC AUTO W DIFF basophil% 0.3 % 0.2-1. 0 Not Available [facility] ([facility]) [address] [place], [address], 01/11/2025 09:16:39 01/12/20 25 01/11/2025 CBC AUTO W DIFF immature granulocytes % 0.4 % 0.0-0. 8 Not Available [facility] ([facility]) [address], [place], [address], 01/11/2025 09:16:39 01/12/20 25 01/11/2025 CBC AUTO W DIFF nucleated red blood cells % 0.0 % Not Available [facility] ([facility]) [address] [facility], [place], [address], 01/11/2025 09:16:39 01/12/20 25 01/11/2025 CBC AUTO W DIFF neutrophil# 5.5 K/uL 2.2-4. 8 high Not Available [facility] ([facility]) [address], [place], [address], 01/11/2025 09:16:39 01/12/20 25 01/11/2025 CBC AUTO W DIFF lymphocyte# 1.9 cell/ mcL 1.3-2. 9 Not Available [facility] ([facility]) [address], [place], [address], 01/11/2025 09:16:39 01/12/20 25 01/11/2025 CBC AUTO W DIFF monocyte# 0.4 cell/ mcL 0.3-0. 8 Not Available [facility] ([facility]) [address] [facility], [place], [address], 01/11/2025 09:16:39 01/12/20 25 01/11/2025 CBC AUTO W DIFF eosinophil# 0.1 cell/ mcL 0-0.2 Not Available [facility] ([facility]) [address] [place], [address], 01/11/2025 09:16:39 01/12/20 25 01/11/2025 CBC AUTO W DIFF basophil# 0.0 cell/ mcL 0.0-1. 0 Not Available [facility] ([facility]) [address] [place], [address], 01/11/2025 09:16:39 01/12/20 25 01/11/2025 CBC AUTO W DIFF immature gramulocytes # 0.03 K/uL Not Available [facility] ([facility]) [address] , [place], [address], 01/11/2025 09:16:39 01/12/20 25 01/11/2025 CBC AUTO W DIFF nucleated red blood cells # 0.00 K/uL Not Available [facility] ([facility]) [address] , [place], [address], 01/11/2025 09:16:39 01/12/20 25 01/11/2025 CBC AUTO W DIFF manual differential NO Not Available [facility] ([facility]) [address] , [place], [address], 01/11/2025 09:16:39 01/12/20 25 01/11/2025 COMP METAB OLIC PANEL sodium 143 mmol/ L 136-14 5 Not Available [facility] ([facility]) [address] , [place], [address], 01/11/2025 09:41:28 01/12/20 25 01/11/2025 COMP METAB OLIC PANEL potassium 4.1 mmol/ L 3.6-5. 0 Not Available [facility] ([facility]) [address] , [place], [address], 01/11/2025 09:41:28 01/12/20 25 01/11/2025 COMP METAB OLIC PANEL chloride 102 mmol/ L 98-107 Not Available [facility] ([facility]) [address] , [place], [address], 01/11/2025 09:41:28 01/12/20 25 01/11/2025 COMP METAB OLIC PANEL carbon dioxide 29.2 mmol/ L 21.0-3 2.0 Not Available [facility] ([facility]) [address] , [place], [address], 01/11/2025 09:41:28 01/12/20 25 01/11/2025 COMP METAB OLIC PANEL anion gap 15.9 Not Available [facility] ([facility]) [address], [place], [address], 01/11/2025 09:41:28 01/12/20 25 01/11/2025 COMP METAB OLIC PANEL glucose 77 mg/dL 70-120 Not Available [facility] ([facility]) [address], [place], [address], 01/11/2025 09:41:28 01/12/20 25 01/11/2025 COMP METAB OLIC PANEL BUN 18 mg/dL 7-18 Not Available [facility] ([facility]) [address], [place], [address], 01/11/2025 09:41:28 01/12/20 25 01/11/2025 COMP METAB OLIC PANEL creatinine 1.0 mg/dL 0.6-1. 3 Not Available [facility] ([facility]) [address], [place], [address], 01/11/2025 09:41:28 01/12/20 25 01/11/2025 COMP METAB [...] gilbert ing kiney funct ion. Not Available [facility] ([facility]) [address] , [place], [address], 01/11/2025 09:41:28 01/12/20 25 01/11/2025 COMP METAB OLIC PANEL osmolality (calculated) 298 mOsm/ kg 275-30 1 OSMOL ALITY IS A CALCU LATIO N UTILI ZING THE SERUM /PLAS MA SODIU M, GLUCO SE AND UREA NITRO GEN (BUN) LEVEL S. FOR THE MOST ACCUR ATE RESUL T A MEASU RED SERUM OSMOL ALITY IS TUTU UNDERWOODD. Not Available [facility] ([facility]) [address] , [place], [address], 01/11/2025 09:41:28 01/12/20 25 01/11/2025 COMP METAB OLIC PANEL total protein 7.3 g/dL 6.4-8. 2 Not Available [facility] ([facility]) [address] , [place], [address], 01/11/2025 09:41:28 01/12/20 25 01/11/2025 COMP METAB OLIC PANEL albumin 3.3 g/dL 3.4-5. 0 low Not Available [facility] ([facility]) [address] , [place], [address], 01/11/2025 09:41:28 01/12/20 25 01/11/2025 COMP METAB OLIC PANEL globulin 4.0 Not Available [facility] ([facility]) [address] , [place], [address], 01/11/2025 09:41:28 01/12/20 25 01/11/2025 COMP METAB OLIC PANEL alb/glob ratio 0.8 0.7-2 Not Available [facility] ([facility]) [address] , [place], [address], 01/11/2025 09:41:28 01/12/20 25 01/11/2025 COMP METAB OLIC PANEL calcium 9.3 mg/dL 8.5-10 .5 Not Available [facility] ([facility]) [address], [place], [address], 01/11/2025 09:41:28 01/12/20 25 01/11/2025 COMP METAB OLIC PANEL bilirubin total 0.30 mg/dL 0.10-1 .00 Not Available [facility] ([facility]) [address], [place], [address], 01/11/2025 09:41:28 01/12/20 25 01/11/2025 COMP METAB OLIC PANEL AST (SGOT) 13 U/L 0-37 Not Available [facility] ([facility]) [address] , [place], [address], 01/11/2025 09:41:28 01/12/20 25 01/11/2025 COMP METAB OLIC PANEL ALT (SGPT) 13 U/L 0-65 Not Available [facility] ([facility]) [address] , [place], [address], 01/11/2025 09:41:28 01/12/20 25 01/11/2025 COMP METAB OLIC PANEL alk phosphatase 137 U/L 46-116 high Not Available [facility] ([facility]) [address] , [place], [address], 01/11/2025 09:41:28 01/12/20 25 01/11/2025 THYRO ID PANEL W/TSH T3 uptake 32.00 % 24.00- 39.00 Not Available [facility] ([facility]) [address] , [place], [address], 01/11/2025 10:30:29 01/12/20 25 01/11/2025 THYRO ID PANEL W/TSH T4 total 7.9 mcg/d L 4.5-12 .1 Not Available [facility] ([facility]) [address], [place], [address], 01/11/2025 10:30:29 01/12/20 25 01/11/2025 THYRO ID PANEL W/TSH free thyroxine index 2.53 1.60-3 .70 Not Available [facility] ([facility]) [address] , [place], [address], 01/11/2025 10:30:29 01/12/20 25 01/11/2025 THYRO ID PANEL W/TSH thyroid stim hormone 1.93 mIU/L 0.36-3 .74 Not Available [facility] ([facility]) [address], [place], [address], 01/11/2025 10:30:29 01/12/20 25 01/11/2025 VITAM IN B12 vitamin B12 716 pg/mL 193-98 6 *Note : Refer miguelangel May. New Test Metho d in use. Not Available [facility] ([facility]) [address], [place], [address], 01/11/2025 12:27:31 01/12/20 25 01/11/2025 VITAM IN B12 folate (folic acid), serum 14.3 NG/mL 8.6-58 .9 *Note : Refer miguelangel May. New Test Metho d in use. Not Available [facility] ([facility]) [address], [place], [address], 01/11/2025 12:27:31 01/12/20 25 01/12/2025 CORTI GENEVIEVE cortisol 8.6 ug/dL 6.2-19 .4 Pleas e Note: The refer ence steve wen and allan ing for this test is for an AM colle ction . If this is a PM colle ction pleas e use: Corti genevieve PM: 2.3-1 1.9 Perfo rmed at: - [facility] [address] [id number] Lab Direc tor: Seth chu PhD, Phone : [phone] Not Available [facility] ([facility]) [address], [place], [address], 01/12/2025 08:15:51 02/02/20 25 02/01/2025 CBC AUTO W DIFF WBC 6.4 K/uL 4.0-10 .5 Not Available [facility] ([facility]) [address], [place], [address], 02/01/2025 09:15:02 02/02/20 25 02/01/2025 CBC AUTO W DIFF RBC 4.6 M/mm3 4.7-6. 1 low Not Available [facility] ([facility]) [address], [place], [address], 02/01/2025 09:15:02 02/02/20 25 02/01/2025 CBC AUTO W DIFF HGB 13.6 gm/dL 13.5-1 8.0 Not Available [facility] ([facility]) [address] , [place], [address], 02/01/2025 09:15:02 02/02/20 25 02/01/2025 CBC AUTO W DIFF HCT 41.4 % 42.0-5 2.0 low Not Available [facility] ([facility]) [address] , [place], [address], 02/01/2025 09:15:02 02/02/20 25 02/01/2025 CBC AUTO W DIFF MCV 91.0 fL 78-100 Not Available [facility] ([facility]) [address] , [place], [address], 02/01/2025 09:15:02 02/02/20 25 02/01/2025 CBC AUTO W DIFF MCH 29.9 pg 27-31 Not Available [facility] ([facility]) [address] , [place], [address], 02/01/2025 09:15:02 02/02/20 25 02/01/2025 CBC AUTO W DIFF MCHC 32.9 g/dL 32-36 Not Available [facility] ([facility]) [address], [place], [address], 02/01/2025 09:15:02 02/02/20 25 02/01/2025 CBC AUTO W DIFF RDW 13.7 % 11.5-1 4.0 Not Available [facility] ([facility]) [address], [place], [address], 02/01/2025 09:15:02 02/02/20 25 02/01/2025 CBC AUTO W DIFF platelet count 179 K/uL 150-45 0 Not Available [facility] ([facility]) [address], [place], [address], 02/01/2025 09:15:02 02/02/20 25 02/01/2025 CBC AUTO W DIFF MPV 10.3 fL 6-9.5 high Not Available [facility] ([facility]) [address], [place], [address], 02/01/2025 09:15:02 02/02/20 25 02/01/2025 CBC AUTO W DIFF neutrophil% 63.2 % 43-65 Not Available [facility] ([facility]) [address], [place], [address], 02/01/2025 09:15:02 02/02/20 25 02/01/2025 CBC AUTO W DIFF lymphocyte% 26.4 % 20.5-4 5.5 Not Available [facility] ([facility]) [address], [place], [address], 02/01/2025 09:15:02 02/02/20 25 02/01/2025 CBC AUTO W DIFF monocyte% 6.2 % 5.5-11 .7 Not Available [facility] ([facility]) [address], [place], [address], 02/01/2025 09:15:02 02/02/20 25 02/01/2025 CBC AUTO W DIFF eosinophil% 3.4 % 0.9-2. 9 high Not Available [facility] ([facility]) [address], [place], [address], 02/01/2025 09:15:02 02/02/20 25 02/01/2025 CBC AUTO W DIFF basophil% 0.3 % 0.2-1. 0 Not Available [facility] ([facility]) [address], [place], [address], 02/01/2025 09:15:02 02/02/20 25 02/01/2025 CBC AUTO W DIFF immature granulocytes % 0.5 % 0.0-0. 8 Not Available [facility] ([facility]) [address], [place], [address], 02/01/2025 09:15:02 02/02/20 25 02/01/2025 CBC AUTO W DIFF nucleated red blood cells % 0.0 % Not Available [facility] ([facility]) [address] [facility], [place], [address], 02/01/2025 09:15:02 02/02/20 25 02/01/2025 CBC AUTO W DIFF neutrophil# 4.1 K/uL 2.2-4. 8 Not Available [facility] ([facility]) [address] [place], [address], 02/01/2025 09:15:02 02/02/20 25 02/01/2025 CBC AUTO W DIFF lymphocyte# 1.7 cell/ mcL 1.3-2. 9 Not Available [facility] ([facility]) [address] [place], [address], 02/01/2025 09:15:02 02/02/20 25 02/01/2025 CBC AUTO W DIFF monocyte# 0.4 cell/ mcL 0.3-0. 8 Not Available [facility] ([facility]) [address], [place], [address], 02/01/2025 09:15:02 02/02/20 25 02/01/2025 CBC AUTO W DIFF eosinophil# 0.2 cell/ mcL 0-0.2 Not Available [facility] ([facility]) [address], [place], [address], 02/01/2025 09:15:02 02/02/20 25 02/01/2025 CBC AUTO W DIFF basophil# 0.0 cell/ mcL 0.0-1. 0 Not Available [facility] ([facility]) [address], [place], [address], 02/01/2025 09:15:02 02/02/20 25 02/01/2025 CBC AUTO W DIFF immature gramulocytes # 0.03 K/uL Not Available [facility] ([facility]) [address], [place], [address], 02/01/2025 09:15:02 02/02/2002/01/2025 CBC AUTO W DIFF nucleated red blood cells # 0.00 K/uL Not Available [facility] ([facility]) [address] , [place], [address], 02/01/2025 09:15:02 02/02/2002/01/2025 CBC AUTO W DIFF manual differential NO Not Available [facility] ([facility]) [address], [place], [address], 02/01/2025 09:15:02 02/02/2002/01/2025 COMP METAB OLIC PANEL sodium 138 mmol/ L 136-14 5 Not Available [facility] ([facility]) [address] , [place], [address], 02/01/2025 09:33:09 02/02/20 25 02/01/2025 COMP METAB OLIC PANEL potassium 4.1 mmol/ L 3.6-5. 0 Not Available [facility] ([facility]) [address] , [place], [address], 02/01/2025 09:33:09 02/02/20 25 02/01/2025 COMP METAB OLIC PANEL chloride 101 mmol/ L 98-107 Not Available [facility] ([facility]) [address] , [place], [address], 02/01/2025 09:33:09 02/02/20 25 02/01/2025 COMP METAB OLIC PANEL carbon dioxide 31.1 mmol/ L 21.0-3 2.0 Not Available [facility] ([facility]) [address] , [place], [address], 02/01/2025 09:33:09 02/02/20 25 02/01/2025 COMP METAB OLIC PANEL anion gap 10.0 Not Available [facility] ([facility]) [address] , [place], [address], 02/01/2025 09:33:09 02/02/20 25 02/01/2025 COMP METAB OLIC PANEL glucose 65 mg/dL 70-120 low Not Available [facility] ([facility]) [address] , [place], [address], 02/01/2025 09:33:09 02/02/20 25 02/01/2025 COMP METAB OLIC PANEL BUN 12 mg/dL 7-18 Not Available [facility] ([facility]) [address] [place], [address], 02/01/2025 09:33:09 02/02/20 25 02/01/2025 COMP METAB OLIC PANEL creatinine 1.2 mg/dL 0.6-1. 3 Not Available [facility] ([facility]) [address], [place], [address], 02/01/2025 09:33:09 02/02/20 25 02/01/2025 COMP METAB [...] gilbert ing kiney funct ion. Not Available [facility] ([facility]) [address] , [place], [address], 02/01/2025 09:33:09 02/02/20 25 02/01/2025 COMP METAB OLIC PANEL osmolality (calculated) 285 mOsm/ kg 275-30 1 OSMOL ALITY IS A CALCU LATIO N UTILI ZING THE SERUM /PLAS MA SODIU M, GLUCO SE AND UREA NITRO GEN (BUN) LEVEL S. FOR THE MOST ACCUR ATE RESUL T A MEASU RED SERUM OSMOL ALITY IS TUTU SCHWARTZ. Not Available [facility] ([facility]) [address] , [place], [address], 02/01/2025 09:33:09 02/02/20 25 02/01/2025 COMP METAB OLIC PANEL total protein 7.2 g/dL 6.4-8. 2 Not Available [facility] ([facility]) [address] , [place], [address], 02/01/2025 09:33:09 02/02/20 25 02/01/2025 COMP METAB OLIC PANEL albumin 3.7 g/dL 3.4-5. 0 Not Available [facility] ([facility]) [address] , [place], [address], 02/01/2025 09:33:09 02/02/20 25 02/01/2025 COMP METAB OLIC PANEL globulin 3.5 Not Available [facility] ([facility]) [address], [place], [address], 02/01/2025 09:33:09 02/02/20 25 02/01/2025 COMP METAB OLIC PANEL alb/glob ratio 1.1 0.7-2 Not Available [facility] ([facility]) [address], [place], [address], 02/01/2025 09:33:09 02/02/20 25 02/01/2025 COMP METAB OLIC PANEL calcium 8.5 mg/dL 8.5-10 .5 Not Available [facility] ([facility]) [address] , [place], [address], 02/01/2025 09:33:09 02/02/20 25 02/01/2025 COMP METAB OLIC PANEL bilirubin total 0.30 mg/dL 0.10-1 .00 Not Available [facility] ([facility]) [address] , [place], [address], 02/01/2025 09:33:09 02/02/20 25 02/01/2025 COMP METAB OLIC PANEL AST (SGOT) 14 U/L 0-37 Not Available [facility] ([facility]) [address] , [place], [address], 02/01/2025 09:33:09 02/02/20 25 02/01/2025 COMP METAB OLIC PANEL ALT (SGPT) 16 U/L 0-65 Not Available [facility] ([facility]) [address] , [place], [address], 02/01/2025 09:33:09 02/02/20 25 02/01/2025 COMP METAB OLIC PANEL alk phosphatase 132 U/L 46-116 high Not Available [facility] ([facility]) [address] , [place], [address], 02/01/2025 09:33:09 02/02/20 25 02/01/2025 THYRO ID PANEL W/TSH T3 uptake 31.00 % 24.00- 39.00 Not Available [facility] ([facility]) [address] , [place], [address], 02/01/2025 09:33:11 02/02/20 25 02/01/2025 THYRO ID PANEL W/TSH T4 total 6.5 mcg/d L 4.5-12 .1 Not Available [facility] ([facility]) [address] [place], [address], 02/01/2025 09:33:11 02/02/20 25 02/01/2025 THYRO ID PANEL W/TSH free thyroxine index 2.02 1.60-3 .70 Not Available [facility] ([facility]) [address] [place], [address], 02/01/2025 09:33:11 02/02/20 25 02/01/2025 THYRO ID PANEL W/TSH thyroid stim hormone 2.10 mIU/L 0.36-3 .74 Not Available [facility] ([facility]) [address], [place], [address], 02/01/2025 09:33:11 02/02/20 25 02/01/2025 MAGNE SIUM magnesium 1.8 mg/dL 1.8-2. 4 Not Available [facility] ([facility]) [address] [place], [address], 02/01/2025 09:55:48 02/02/20 25 02/01/2025 VITAM IN B12 vitamin B12 602 pg/mL 193-98 6 *Note : Refer ence Steve hood New Test Metho d in use. Not Available [facility] ([facility]) [address] [place], [address], 02/01/2025 10:28:32 02/02/20 25 02/01/2025 VITAM IN B12 folate (folic acid), serum 9.4 NG/mL 8.6-58 .9 *Note : Refer miguelangel hood New Test Metho d in use. Not Available [facility] ([facility]) [address] , [place], [address], 02/01/2025 10:28:32 02/02/20 25 02/02/2025 CORTI GENEVIEVE cortisol 12.3 ug/dL 6.2-19 .4 Plepat verdugo Note: The refer ence inter wen and allan ing for this test is for an AM colle ction . If this is a PM colle ction pleas e use: Corti genevieve PM: 2.3-1 1.9 Perfo rmed at: [place] [address] Lab Dire tor: Seth chu PhD, Phone : [phone] Not Available [facility] ([facility]) [address] , [place], [address], 02/02/2025 06:11:36 02/23/20 25 02/22/2025 CBC AUTO W DIFF WBC 7.6 K/uL 4.0-10 .5 Not Available [facility] ([facility]) [address] , [place], [address], 02/22/2025 08:44:25 02/23/20 25 02/22/2025 CBC AUTO W DIFF RBC 4.8 M/mm3 4.7-6. 1 Not Available [facility] ([facility]) [address] , [place], [address], 02/22/2025 08:44:25 02/23/20 25 02/22/2025 CBC AUTO W DIFF HGB 14.2 gm/dL 13.5-1 8.0 Not Available [facility] ([facility]) [address], [place], [address], 02/22/2025 08:44:25 02/23/20 25 02/22/2025 CBC AUTO W DIFF HCT 43.2 % 42.0-5 2.0 Not Available [facility] ([facility]) [address], [place], [address], 02/22/2025 08:44:25 02/23/20 25 02/22/2025 CBC AUTO W DIFF MCV 89.6 fL 78-100 Not Available [facility] ([facility]) [address], [place], [address], 02/22/2025 08:44:25 02/23/20 25 02/22/2025 CBC AUTO W DIFF MCH 29.5 pg 27-31 Not Available [facility] ([facility]) [address] , [place], [address], 02/22/2025 08:44:25 02/23/20 25 02/22/2025 CBC AUTO W DIFF MCHC 32.9 g/dL 32-36 Not Available [facility] ([facility]) [address] , [place], [address], 02/22/2025 08:44:25 02/23/20 25 02/22/2025 CBC AUTO W DIFF RDW 13.4 % 11.5-1 4.0 Not Available [facility] ([facility]) [address] , [place], [address], 02/22/2025 08:44:25 02/23/20 25 02/22/2025 CBC AUTO W DIFF platelet count 171 K/uL 150-45 0 Not Available [facility] ([facility]) [address] , [place], [address], 02/22/2025 08:44:25 02/23/20 25 02/22/2025 CBC AUTO W DIFF MPV 10.7 fL 6-9.5 high Not Available [facility] ([facility]) [address], [place], [address], 02/22/2025 08:44:25 02/23/20 25 02/22/2025 CBC AUTO W DIFF neutrophil% 63.7 % 43-65 Not Available [facility] ([facility]) [address], [place], [address], 02/22/2025 08:44:25 02/23/20 25 02/22/2025 CBC AUTO W DIFF lymphocyte% 26.4 % 20.5-4 5.5 Not Available [facility] ([facility]) [address] [facility], [place], [address], 02/22/2025 08:44:25 02/23/20 25 02/22/2025 CBC AUTO W DIFF monocyte% 5.9 % 5.5-11 .7 Not Available [facility] ([facility]) [address] [facility], [place], [address], 02/22/2025 08:44:25 02/23/20 25 02/22/2025 CBC AUTO W DIFF eosinophil% 3.4 % 0.9-2. 9 high Not Available [facility] ([facility]) [address], [place], [address], 02/22/2025 08:44:25 02/23/20 25 02/22/2025 CBC AUTO W DIFF basophil% 0.3 % 0.2-1. 0 Not Available [facility] ([facility]) [address] [place], [address], 02/22/2025 08:44:25 02/23/20 25 02/22/2025 CBC AUTO W DIFF immature granulocytes % 0.3 % 0.0-0. 8 Not Available [facility] ([facility]) [address] [place], [address], 02/22/2025 08:44:25 02/23/20 25 02/22/2025 CBC AUTO W DIFF nucleated red blood cells % 0.0 % Not Available [facility] ([facility]) [address] [place], [address], 02/22/2025 08:44:25 02/23/20 25 02/22/2025 CBC AUTO W DIFF neutrophil# 4.8 K/uL 2.2-4. 8 Not Available [facility] ([facility]) [address] [place], [address], 02/22/2025 08:44:25 02/23/20 25 02/22/2025 CBC AUTO W DIFF lymphocyte# 2.0 cell/ mcL 1.3-2. 9 Not Available [facility] ([facility]) [address] [facility], [place], [address], 02/22/2025 08:44:25 02/23/20 25 02/22/2025 CBC AUTO W DIFF monocyte# 0.5 cell/ mcL 0.3-0. 8 Not Available [facility] ([facility]) [address] [place], [address], 02/22/2025 08:44:25 02/23/20 25 02/22/2025 CBC AUTO W DIFF eosinophil# 0.3 cell/ mcL 0-0.2 high Not Available [facility] ([facility]) [address] [place], [address], 02/22/2025 08:44:25 02/23/20 25 02/22/2025 CBC AUTO W DIFF basophil# 0.0 cell/ mcL 0.0-1. 0 Not Available [facility] ([facility]) [address] [place], [address], 02/22/2025 08:44:25 02/23/20 25 02/22/2025 CBC AUTO W DIFF immature gramulocytes # 0.02 K/uL Not Available [facility] ([facility]) [address] [place], [address], 02/22/2025 08:44:25 02/23/20 25 02/22/2025 CBC AUTO W DIFF nucleated red blood cells # 0.00 K/uL Not Available [facility] ([facility]) [address], [place], [address], 02/22/2025 08:44:25 02/23/20 25 02/22/2025 CBC AUTO W DIFF manual differential NO Not Available [facility] ([facility]) [address], [place], [address], 02/22/2025 08:44:25 02/23/20 25 02/22/2025 COMP METAB OLIC PANEL sodium 140 mmol/ L 136-14 5 Not Available [facility] ([facility]) [address], [place], [address], 02/22/2025 09:03:10 02/23/20 25 02/22/2025 COMP METAB OLIC PANEL potassium 3.7 mmol/ L 3.6-5. 0 Not Available [facility] ([facility]) [address], [place], [address], 02/22/2025 09:03:10 02/23/20 25 02/22/2025 COMP METAB OLIC PANEL chloride 100 mmol/ L 98-107 Not Available [facility] ([facility]) [address], [place], [address], 02/22/2025 09:03:10 02/23/20 25 02/22/2025 COMP METAB OLIC PANEL carbon dioxide 33.0 mmol/ L 21.0-3 2.0 high Not Available [facility] ([facility]) [address], [place], [address], 02/22/2025 09:03:10 02/23/20 25 02/22/2025 COMP METAB OLIC PANEL anion gap 10.7 Not Available [facility] ([facility]) [address], [place], [address], 02/22/2025 09:03:10 02/23/20 25 02/22/2025 COMP METAB OLIC PANEL glucose 143 mg/dL 70-120 high Not Available [facility] ([facility]) [address], [place], [address], 02/22/2025 09:03:10 02/23/20 25 02/22/2025 COMP METAB OLIC PANEL BUN 17 mg/dL 7-18 Not Available [facility] ([facility]) [address], [place], [address], 02/22/2025 09:03:10 02/23/20 25 02/22/2025 COMP METAB OLIC PANEL creatinine 1.2 mg/dL 0.6-1. 3 Not Available [facility] ([facility]) [address] , [place], [address], 02/22/2025 09:03:10 02/23/20 25 02/22/2025 COMP METAB [...] gilbert ing kiney funct ion. Not Available [facility] ([facility]) [address] , [place], [address], 02/22/2025 09:03:10 02/23/20 25 02/22/2025 COMP METAB OLIC PANEL osmolality (calculated) 295 mOsm/ kg 275-30 1 OSMOL ALITY IS A CALCU LATIO N UTILI ZING THE SERUM /PLAS MA SODIU M, GLUCO SE AND UREA NITRO GEN (BUN) LEVEL S. FOR THE MOST ACCUR ATE RESUL T A MEASU RED SERUM OSMOL ALITY IS TUTU SCHWARTZ. Not Available [facility] ([facility]) [address], [place], [address], 02/22/2025 09:03:10 02/23/20 25 02/22/2025 COMP METAB OLIC PANEL total protein 7.5 g/dL 6.4-8. 2 Not Available [facility] ([facility]) [address] [facility], [place], [address], 02/22/2025 09:03:10 02/23/20 25 02/22/2025 COMP METAB OLIC PANEL albumin 3.4 g/dL 3.4-5. 0 Not Available [facility] ([facility]) [address] [facility], [place], [address], 02/22/2025 09:03:10 02/23/20 25 02/22/2025 COMP METAB OLIC PANEL globulin 4.1 Not Available [facility] ([facility]) [address] [facility] [facility], [place], [address], 02/22/2025 09:03:10 02/23/20 25 02/22/2025 COMP METAB OLIC PANEL alb/glob ratio 0.8 0.7-2 Not Available [facility] ([facility]) [address] [facility], [place], [address], 02/22/2025 09:03:10 02/23/20 25 02/22/2025 COMP METAB OLIC PANEL calcium 9.3 mg/dL 8.5-10 .5 Not Available [facility] ([facility]) [address] [place], [address], 02/22/2025 09:03:10 02/23/20 25 02/22/2025 COMP METAB OLIC PANEL bilirubin total 0.70 mg/dL 0.10-1 .00 Not Available [facility] ([facility]) [address], [place], [address], 02/22/2025 09:03:10 02/23/20 25 02/22/2025 COMP METAB OLIC PANEL AST (SGOT) 15 U/L 0-37 Not Available [facility] ([facility]) [address], [place], [address], 02/22/2025 09:03:10 02/23/20 25 02/22/2025 COMP METAB OLIC PANEL ALT (SGPT) 25 U/L 0-65 Not Available [facility] ([facility]) [address], [place], [address], 02/22/2025 09:03:10 02/23/20 25 02/22/2025 COMP METAB OLIC PANEL alk phosphatase 150 U/L 46-116 high Not Available [facility] ([facility]) [address], [place], [address], 02/22/2025 09:03:10 02/23/20 25 02/22/2025 THYRO ID PANEL W/TSH T3 uptake 33.00 % 24.00- 39.00 Not Available [facility] ([facility]) [address], [place], [address], 02/22/2025 09:03:13 02/23/20 25 02/22/2025 THYRO ID PANEL W/TSH T4 total 7.0 mcg/d L 4.5-12 .1 Not Available [facility] ([facility]) [address], [place], [address], 02/22/2025 09:03:13 02/23/20 25 02/22/2025 THYRO ID PANEL W/TSH free thyroxine index 2.31 1.60-3 .70 Not Available [facility] ([facility]) [address], [place], [address], 02/22/2025 09:03:13 02/23/20 25 02/22/2025 THYRO ID PANEL W/TSH thyroid stim hormone 2.86 mIU/L 0.36-3 .74 Not Available [facility] ([facility]) [address], [place], [address], 02/22/2025 09:03:13 02/23/20 25 02/23/2025 CORTI GENEVIEVE cortisol 9.0 ug/dL 6.2-19 .4 Pleas e Note: The refer ence inter wen and allan ing for this test is for an AM colle ction . If this is a PM colle ction pleas e use: Corti genevieve PM: 2.3-1 1.9 Perfo rmed at: [facility] [address] [place] [address] Lab Direc tor: Seth chu PhD, Phone : [phone] Not Available [facility] ([facility]) [address], [place], [address], 02/23/2025 08:13:26 04/23/20 25 04/26/2025 PATHO LOGY SPECI MEN pathology specimen SEE LORENZO Squires RPT Not Available [facility] ([facility]) [address], [place], [address], 04/26/2025 14:14:49 05/10/2005/10/2025 CBC AUTO W DIFF WBC 6.8 K/uL 4.0-10 .5 Not Available [facility] ([facility]) [address], [place], [address], 05/10/2025 08:51:25 05/10/20 25 05/10/2025 CBC AUTO W DIFF RBC 4.4 M/mm3 4.7-6. 1 low Not Available [facility] ([facility]) [address], [place], [address], 05/10/2025 08:51:25 05/10/20 25 05/10/2025 CBC AUTO W DIFF HGB 13.5 gm/dL 13.5-1 8.0 Not Available [facility] ([facility]) [address] , [place], [address], 05/10/2025 08:51:25 05/10/20 25 05/10/2025 CBC AUTO W DIFF HCT 41.3 % 42.0-5 2.0 low Not Available [facility] ([facility]) [address] , [place], [address], 05/10/2025 08:51:25 05/10/2005/10/2025 CBC AUTO W DIFF MCV 93.0 fL 78-100 Not Available [facility] ([facility]) [address] , [place], [address], 05/10/2025 08:51:25 05/10/20 25 05/10/2025 CBC AUTO W DIFF MCH 30.4 pg 27-31 Not Available [facility] ([facility]) [address] , [place], [address], 05/10/2025 08:51:25 05/10/20 25 05/10/2025 CBC AUTO W DIFF MCHC 32.7 g/dL 32-36 Not Available [facility] ([facility]) [address] [place], [address], 05/10/2025 08:51:25 05/10/2005/10/2025 CBC AUTO W DIFF RDW 14.6 % 11.5-1 4.0 high Not Available [facility] ([facility]) [address] [place], [address], 05/10/2025 08:51:25 05/10/20 25 05/10/2025 CBC AUTO W DIFF platelet count 189 K/uL 150-45 0 Not Available [facility] ([facility]) [address] [place], [address], 05/10/2025 08:51:25 05/10/20 25 05/10/2025 CBC AUTO W DIFF MPV 10.3 fL 6-9.5 high Not Available [facility] ([facility]) [address], [place], [address], 05/10/2025 08:51:25 05/10/20 25 05/10/2025 CBC AUTO W DIFF neutrophil% 66.9 % 43-65 high Not Available [facility] ([facility]) [address], [place], [address], 05/10/2025 08:51:25 05/10/20 25 05/10/2025 CBC AUTO W DIFF lymphocyte% 23.8 % 20.5-4 5.5 Not Available [facility] ([facility]) [address] [place], [address], 05/10/2025 08:51:25 05/10/20 25 05/10/2025 CBC AUTO W DIFF monocyte% 5.6 % 5.5-11 .7 Not Available [facility] ([facility]) [address] [place], [address], 05/10/2025 08:51:25 05/10/20 25 05/10/2025 CBC AUTO W DIFF eosinophil% 3.0 % 0.9-2. 9 high Not Available [facility] ([facility]) [address] [place], [address], 05/10/2025 08:51:25 05/10/20 25 05/10/2025 CBC AUTO W DIFF basophil% 0.4 % 0.2-1. 0 Not Available [facility] ([facility]) [address] [place], [address], 05/10/2025 08:51:25 05/10/20 25 05/10/2025 CBC AUTO W DIFF immature granulocytes % 0.3 % 0.0-0. 8 Not Available [facility] ([facility]) [address], [place], [address], 05/10/2025 08:51:25 05/10/20 25 05/10/2025 CBC AUTO W DIFF nucleated red blood cells % 0.0 % Not Available [facility] ([facility]) [address], [place], [address], 05/10/2025 08:51:25 05/10/20 25 05/10/2025 CBC AUTO W DIFF neutrophil# 4.5 K/uL 2.2-4. 8 Not Available [facility] ([facility]) [address] [facility], [place], [address], 05/10/2025 08:51:25 05/10/20 25 05/10/2025 CBC AUTO W DIFF lymphocyte# 1.6 cell/ mcL 1.3-2. 9 Not Available [facility] ([facility]) [address], [place], [address], 05/10/2025 08:51:25 05/10/20 25 05/10/2025 CBC AUTO W DIFF monocyte# 0.4 cell/ mcL 0.3-0. 8 Not Available [facility] ([facility]) [address] [facility], [place], [address], 05/10/2025 08:51:25 05/10/20 25 05/10/2025 CBC AUTO W DIFF eosinophil# 0.2 cell/ mcL 0-0.2 Not Available [facility] ([facility]) [address] [place], [address], 05/10/2025 08:51:25 05/10/20 25 05/10/2025 CBC AUTO W DIFF basophil# 0.0 cell/ mcL 0.0-1. 0 Not Available [facility] ([facility]) [address] [place], [address], 05/10/2025 08:51:25 05/10/20 25 05/10/2025 CBC AUTO W DIFF immature gramulocytes # 0.02 K/uL Not Available [facility] ([facility]) [address], [place], [address], 05/10/2025 08:51:25 05/10/20 25 05/10/2025 CBC AUTO W DIFF nucleated red blood cells # 0.00 K/uL Not Available [facility] ([facility]) [address] , [place], [address], 05/10/2025 08:51:25 05/10/2005/10/2025 CBC AUTO W DIFF manual differential NO Not Available [facility] ([facility]) [address] , [place], [address], 05/10/2025 08:51:25 05/10/20 25 05/10/2025 COMP METAB OLIC PANEL sodium 137 mmol/ L 136-14 5 Not Available [facility] ([facility]) [address], [place], [address], 05/10/2025 09:31:57 05/10/20 25 05/10/2025 COMP METAB OLIC PANEL potassium 3.6 mmol/ L 3.6-5. 0 Not Available [facility] ([facility]) [address] , [place], [address], 05/10/2025 09:31:57 05/10/20 25 05/10/2025 COMP METAB OLIC PANEL chloride 99 mmol/ L 98-107 Not Available [facility] ([facility]) [address], [place], [address], 05/10/2025 09:31:57 05/10/20 25 05/10/2025 COMP METAB OLIC PANEL carbon dioxide 27.4 mmol/ L 21.0-3 2.0 Not Available [facility] ([facility]) [address] , [place], [address], 05/10/2025 09:31:57 05/10/2005/10/2025 COMP METAB OLIC PANEL anion gap 14.2 Not Available [facility] ([facility]) [address], [place], [address], 05/10/2025 09:31:57 05/10/20 25 05/10/2025 COMP METAB OLIC PANEL glucose 107 mg/dL 70-120 Not Available [facility] ([facility]) [address], [place], [address], 05/10/2025 09:31:57 05/10/20 25 05/10/2025 COMP METAB OLIC PANEL BUN 11 mg/dL 7-18 Not Available [facility] ([facility]) [address] , [place], [address], 05/10/2025 09:31:57 05/10/20 25 05/10/2025 COMP METAB OLIC PANEL creatinine 1.0 mg/dL 0.6-1. 3 Not Available [facility] ([facility]) [address] , [place], [address], 05/10/2025 09:31:57 05/10/2005/10/2025 COMP METAB OLIC PANEL glomerular filtration rate [...] gilbert ing kiney funct ion. Not Available [facility] ([facility]) [address] , [place], [address], 05/10/2025 09:31:57 05/10/20 25 05/10/2025 COMP METAB OLIC PANEL osmolality (calculated) 285 mOsm/ kg 275-30 1 OSMOL ALITY IS A CALCU LATIO N UTILI ZING THE SERUM /PLAS MA SODIU M, GLUCO SE AND UREA NITRO GEN (BUN) LEVEL S. FOR THE MOST ACCUR ATE RESUL T A MEASU RED SERUM OSMOL ALITY IS SUGLINDA UNDERWOODD. Not Available [facility] ([facility]) [address], [place], [address], 05/10/2025 09:31:57 05/10/20 25 05/10/2025 COMP METAB OLIC PANEL total protein 7.5 g/dL 6.4-8. 2 Not Available [facility] ([facility]) [address] [facility], [place], [address], 05/10/2025 09:31:57 05/10/20 25 05/10/2025 COMP METAB OLIC PANEL albumin 3.5 g/dL 3.4-5. 0 Not Available [facility] ([facility]) [address] , [place], [address], 05/10/2025 09:31:57 05/10/20 25 05/10/2025 COMP METAB OLIC PANEL globulin 4.0 Not Available [facility] ([facility]) [address] , [place], [address], 05/10/2025 09:31:57 05/10/20 25 05/10/2025 COMP METAB OLIC PANEL alb/glob ratio 0.9 0.7-2 Not Available [facility] ([facility]) [address] [place], [address], 05/10/2025 09:31:57 05/10/20 25 05/10/2025 COMP METAB OLIC PANEL calcium 9.4 mg/dL 8.5-10 .5 Not Available [facility] ([facility]) [address] [place], [address], 05/10/2025 09:31:57 05/10/20 25 05/10/2025 COMP METAB OLIC PANEL bilirubin total 0.60 mg/dL 0.10-1 .00 Not Available [facility] ([facility]) [address], [place], [address], 05/10/2025 09:31:57 05/10/20 25 05/10/2025 COMP METAB OLIC PANEL AST (SGOT) 12 U/L 0-37 Not Available [facility] ([facility]) [address], [place], [address], 05/10/2025 09:31:57 05/10/20 25 05/10/2025 COMP METAB OLIC PANEL ALT (SGPT) 14 U/L 0-65 Not Available [facility] ([facility]) [address], [place], [address], 05/10/2025 09:31:57 05/10/20 25 05/10/2025 COMP METAB OLIC PANEL alk phosphatase 128 U/L 46-116 high Not Available [facility] ([facility]) [address], [place], [address], 05/10/2025 09:31:57 05/10/20 25 05/10/2025 THYRO ID PANEL W/TSH T3 uptake 36.00 % 24.00- 39.00 Not Available [facility] ([facility]) [address], [place], [address], 05/10/2025 09:31:59 05/10/2005/10/2025 THYRO ID PANEL W/TSH T4 total 7.1 mcg/d L 4.5-12 .1 Not Available [facility] ([facility]) [address], [place], [address], 05/10/2025 09:31:59 07/10/05/10/2025 THYRO ID PANEL W/TSH free thyroxine index 2.56 1.60-3 .70 Not Available [facility] ([facility]) [address], [place], [address], 05/10/2025 09:31:59 05/10/20 25 05/10/2025 THYRO ID PANEL W/TSH thyroid stim hormone 1.29 mIU/L 0.36-3 .74 Not Available [facility] ([facility]) [address], [place], [address], 05/10/2025 09:31:59 05/10/20 25 05/11/2025 CORTI GENEVIEVE cortisol 11.3 ug/dL 6.2-19 .4 Pleas e Note: The refer ence inter wen and allan ing for this test is for an AM colle ction . If this is a PM colle ction pleas e use: Corti genevieve PM: 2.3-1 1.9 Perfo rmed at: [facility] [address] [place], [place] [id number] [facility]9 Lab Direc tor: Seth chu PhD, Phone : [phone] Not Available [facility] ([facility]) [address], [place], [address], 05/11/2025 13:12:13 01/18/20 25 12/25/2024 CT, abdom en + pelvi s, w/ contr ast No observ ation record ed. [email or web address] [facility] (Med Record) [address], [place], [address], 01/25/2025 08:38:15 03/05/20 25 03/05/2025 CT, chest , w/ contr ast [facility] Hospit [facility] [address] [place] [address] Phone: Fax: Name: SUSANNAH KIM Exam Date: 03/05/20 25 : 1944 Age 79 years Gender : M Access ion: [id number] Physic cindy: SHELLI MCGOVERN Facili ty: [facility] Facili ty HSV: Outpat ient Exam: [...] base of the right upper lobe anteri edangelo and in the security services specialist ior medial left upper lobe. Linear atelec [...] ies in the right upper lobe and security services specialist ior left upper lobe charac terist ic [...] ing 2.7 cm in [facility] er. The stomac h and [...] you for referr ing SUSANNAH KIM to [facility]. Legall y authen ticate d by BROOKE Michel 03-05 09:39: 13 CC'ed Logic: Orderi ng Provid er: ELISEO MCCANN Attend ing Provid er: ELISEO MCCANN Referr ing Provid er: ELISEO MCCANN Admitt ing Provid er: ELISEO MCCANN [email or web address] [facility] [address] [facility], [place], [address], 03/07/2025 11:08:17 03/05/2003/05/2025 CT, abdom en + pelvi s, w[facility] [address] [facility] [place] [address] Phone: Fax: Name: SUSANNAH KIM Exam Date: 03/05/20 : 1944 Age 79 years Gender : M Access ion: [id number] Physic cindy: SHELLI MCGOVERN Facili ty: [facility] Facili ty HSV: Outpat ient Exam: [...] upper lobe anteri deangelo and in the security services specialist ior medial left upper lobe. Linear atelec [...] ies in the right upper lobe and security services specialist ior left upper lobe charac terist ic [...] ing 2.7 cm in [facility] er. The stomac h and [...] you for referr ing SUSANNAH KIM to [facility] Hospit al. Legall y authen ticate d by BROOKE Michel 03-05 09:38: 58 CC'ed Logic: Orderi ng Provid er: ELISEO MCCANN Attend ing Provid er: ELISEO MCCANN Referr ing Provid er: ELISEO MCCANN Admitt ing Provid er: ELISEO MCCANN [email or web address] [facility] [address] [facility], [place], [address], 03/07/2025 11:08:17 03/07/20 25 03/05/2025 CT, neck, soft tissu e, w/ contr ast [facility] [address] [place] [address] Phone: Fax: Name: SUSANNAH KIM Exam Date: 03/05/20 : 1944 Age 79 years Gender : M Access ion: [id number] Physic cindy: SHELLI MCGOVERN Facili ty: [facility] Facili ty HSV: Outpat ient Exam: [...] 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 No suspic ious nodule is identi fied. [...] Leija 03/05/20 Thank you for referr ing SUSANNAH KIM to [facility] al. Legall y authen ticate d by ROEL GALEANA 03-05 09:38: 47 CC'ed Logic: Orderi ng Provid er: ELISEO MCCANN Attend ing Provid er: ELISEO MCCANN Referr ing Provid er: ELISEO MCCANN Admitt ing Provid er: ELISEO MCCANN [facility] [address] [place] [address], [id number], 03/07/2025 11:07:53 04/06/2004/06/2025 CT, neck, soft tissu e[facility] [address] [place] [address] Phone: Fax: Name: SUSANNAH KIM Exam Date: 04/06/20 : 1944 Age 79 years Gender : M Access ion: [id number] Physic cindy: MEGAN SPRING[facility] Facili ty: [facility] Facili ty HSV: Outpat ient Exam: [...] than right with extens ion along the security services specialist ior aspect of the larynx across midlin [...] suprag lottic larynx extend ing across the security services specialist ior midlin e consis tent with the [...] you for referr ing SUSANNAH KIM to [facility]. Legall y authen ticate d by SANJUANA Musa 04-06 15:08: 58 CC'ed Logic: Orderi ng Provid er: RACHEAL GUZMAN Attend ing Provid er: RACHEAL GUZMAN Referr ing Provid er: RACHEAL GUZMAN Admitt ing Provid er: RACHEAL GUZMAN [email or web address] [facility] [address] [facility], [place], [address], 04/09/2025 11:24:10 04/23/20 25 04/23/2025 US fna w/valerie ge [facility] [address] [place] [address] Phone: Fax: Name: SUSANNAH KIM Exam Date: 025 : 1944 Age 79 years Gender : M Access ion: [id number] Physic cindy: MEGAN SPRINGER Facili ty: [facility] Facili ty HSV: Outpat ient Exam: US FNA W/IMAG E ULTRAS OUND GUIDED Biopsy of left paroti d gland. Perfor med by: Guero squires DELIVERY REP, DOG FOOD SHREDDER OPERATOR-C. Attend ing physic cindy: Dr. Korey murillo MD. 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 TECHNI QUE/RI OCEDUR E: Fully inform ed writte n consen t was obtain ed from the patien t. A time out was perfor med. After the approa ch was planne d using prelim inary ultras ound guidan ce, the area was preppe d and draped in steril e fashio n. The skin and subcut aneous tissue s were anesth etized using a mix of 1% lidoca ine and sodium bicarb dejuan. Using a 25-gau ge needle , it was insert ed under ultras ound guidan ce into the left paroti d gland. A total of 3 passes done obtain ing FNA specim ens. Using a 22-gau ge needle and an 18 gauge needle the area was aspira carlos to remove creamy rea, thick fluid. A pathol ogist was presen t during biopsy to confir m adequa cy of the specim ens obtain ed. There appear s to be little solid compon ents of the mass. These were sent to the pathol ogy lab for analys is. The patien t tolera carlos the proced ure well, with no signif icant blood loss. They were return ed to the [facility] area in satisf actory condit ion. IMPRES TONY: Succes sful ultras ound-g uided left paroti d gland biopsy . Pathol ogy katherine g. Electr onical ly signed by: Korey murillo MD 2024 11:38 AM EDT RP Workst ation: [id number] Dictat ed By: Korey Avitia Transc ribed By: Transc ribed On: 025 11:38 AM Electr onical ly signed by: Korey Avitia 025 Thank you for referr ing SUSANNAH KIM Y to [facility]. Legall y authen ticate d by NAMMEHRANChrista Murillo KOREY 04-23 11:38: 08 CC'ed Logic: Orderi ng Provid er: RACHEAL GUZMAN Attend ing Provid er: RACHEAL GUZMAN Referr ing Provid er: RACHEAL GUZMAN Admitt ing Provid er: RACHEAL GUZMAN [email or web address] [facility] [address] [place] [address], [place], [address], 04/23/2025 11:48:22 05/10/20 25 04/13/2025 CT, chest , w/o contr ast No observ ation record ed. [email or web address] [facility] (Med Record) [address], [place], [address], 05/14/2025 10:34:55 Result Notes Documentation Provider Name and Address Organization Details Recorded Time Ct, Chest, W/ Contrast : [facility] [address] [place] [address] Name: ANN MARIE FELIPE Exam Date: 03/05/2025 : 1945 Age 79 years Gender: M Physician: SHELLI HARRIS Facility: [facility] Facility HSV: Outpatient Exam: CT CHEST [...] lobe pulmonary nodules are stable compared to 202 favoring benign nodules. Attention on follow-up imaging [...] small bowel loops. Electronically signed by: Gualberto Peters MD 03/05/2025 12:08 PM EDT Dictated By: Gualberto Peters Transcribed By: Transcribed On: 03/05/2025 9:39 AM Electronically signed by: Gualberto Peters 03/05/2025 Thank you for referring KORYAngelikaANN MARIE to [facility]. Legally authenticated by BROOKE Michel 2025-03-05 09:39:13 CC'ed Logic: Ordering Provider: KIMBERLY MCCANN Attending Provider: KIMBERLY MCCANN Referring Provider: KIMBERLY MCCANN Admitting Provider: KIMBERLY Funes [facility] & [place] 03/07/2025 11:08:17 Ct, Abdomen + Pelvis, W/ Contrast : [address] [place] [address] Name: ANN MARIE FELIPE Exam Date: 03/05/2025 : 1945 Age 79 years Gender: M Physician: SHELLI HARRIS Facility: [facility] Facility HSV: Outpatient Exam: CT ABD [...] lobe pulmonary nodules are stable compared to 202 favoring benign nodules. Attention on follow-up imaging [...] nonobstructed small bowel loops. Electronically signed by: Gaulberto Peters MD 03/05/2025 12:08 PM EDT RP Dictated By: Gualberto Peters Transcribed By: Transcribed On: 03/05/2025 9:38 AM Electronically signed by: Gualberto Peters 03/05/2025 Thank you for referring ANN MARIE FELIPE to [facility]. Legally authenticated by BROOKE Michel 2025-03-05 09:38:58 CC'ed Logic: Ordering Provider: KIMBERLY MCCANN Attending Provider: KIMBERLY MCCANN Referring Provider: KIMBERLY MCCANN Admitting Provider: PATRICK Yang [facility] - [place] & [place] 03/07/2025 11:08:17 Ct, Neck, Soft Tissue, W/ Contrast : [address] [address] Name: ANN MARIE FELIPE Exam Date: 03/05/2025 : 1945 Age 79 years Gender: M Physician: SHELLI HARRIS Facility: [facility] Facility HSV: Outpatient Exam: CT NECK [...] disease in this area. Electronically signed by: Tomi Leija MD 03/07/2025 10:11 AM EDT RP Dictated By: Tomi Leija Transcribed By: Transcribed On: 03/05/2025 9:38 AM Electronically signed by: Tomi Leija 03/05/2025 Thank you for referring ANN MARIE FELIPE to [facility]. Legally authenticated by ROEL GALEANA 2025-03-05 09:38:47 CC'ed Logic: Ordering Provider: KIMBERLY MCCANN Attending Provider: KIMBERLY MCCANN Referring Provider: KIMBERLY MCCANN Admitting Provider: KIMBERLY [facility] 03/07/2025 11:07:53 Ct, Neck, Soft Tissue, W/ Contrast : [address] [place] [address] Name: ANN MARIE FELIPE Exam Date: 04/06/2025 : 1945 Age 79 years Gender: M Physician: MEGAN SPRINGER Facility: [facility] Facility HSV: Outpatient Exam: CT NECK [...] you for referring ANN MARIE FELIPE to [facility]. Legally authenticated by ELIZABETH Musa 2025-04-06 15:08:58 CC'ed Logic: Ordering Provider: RACHEAL GUZMAN Attending Provider: RACHEAL GUZMAN Referring Provider: RACHEAL GUZMAN Admitting Provider: PATRICK Webber [facility] & [place] 04/09/2025 11:24:10 Procedures Surgical History Date Name Laterality Status Provider Name and Address Organization Details Recorded Time open heart surgery completed Janeth Monica NGUYEN - NT [facility] & [place] 02/14/2024 09:56:24 operative procedure on knee completed Kristine NGUYEN - [facility] & [place] 04/05/2024 13:20:11 Imaging Results None recorded. Procedure Notes None recorded. Medical Equipment None Reported. Allergies Allergen ID Allergen Name Allergen Category Reaction Reaction Severity Criticality Documentation Date Start Date Code Code System Note Provider Name and Address Organization Details Recorded Time 928720 Product containin g penicilli n (product) medicatio n hives Not available Not available 02/06/2025 09943 8001 SNOMED Jackie Roldan [facility], [place] - [facility] - [place] & [place] 5 08:40:08 Medications Name Sig Start Date [...] EVERY DAY AT BEDTIME FOR CHOLESTER OL 05/10 completed Not Available Not Available Not Available atorvastati n 80 mg tablet TAKE [...] 1 VIAL VIA NEBULIZER EVERY 6 HOURS active Not Available Not [...] Not Available Not Available No t Available [facility]- [facility]. Springer active Not Available Not Available No t Available Trulicity 1.5 mg/0.5 mL subcutaneou s pen injector INJECT THE CONTENTS OF 1 PEN (1.5 MG / 0.5ML) SUBCUTANE OUSLY ONCE A WEEK DIRECTED active Not Available Not Available No t Available Trelegy Ellipta 200 mcg-62.5 mcg-25 mcg powder for inhalation INHALE 1 PUFF BY MOUTH EVERY DAY active Not Available Not Available No t Available Vitals Date Recorded Body height Body mass index (BMI) Body weight Body temperature Oxygen saturation Oxygen saturation in Arterial blood by Pulse oximetry Heart rate Respiratory rate Systolic And Diastolic Provider Name and Address Organization Details Last Updated DateTime 5 180.34 cm 23.8 kg/m2 71538.1 4 g 97.9 [degF] 95 % 95 % 70 /min 18 /min 120/63 mm[Hg] Janeth Anderson [facility] & [place] 5 09:18:24 Date Recorded Body height Body mass index (BMI) Body weight Heart rate Oxygen saturation Oxygen saturation in Arterial blood by Pulse oximetry Body temperature Systolic And Diastolic Provider Name and Address Organization Details Last Updated DateTime 5 180.34 cm 23.8 kg/m2 59509.8 6 g 70 /min 100 % 100 % 98.2 [degF] 110/60 mm[Hg] Jackie Roldan [facility] & [place] 5 08:42:53 Date Recorded Body height Body mass index (BMI) Body weight Body temperature Oxygen saturation Oxygen saturation in Arterial blood by Pulse oximetry Heart rate Systolic And Diastolic Provider Name and Address Organization Details Last Updated DateTime 5 180.34 cm 23.8 kg/m2 51120.5 8 g 97.8 [degF] 94 % 94 % 70 /min 100/59 mm[Hg] Gonzalo Mendes [facility] & [place] 5 08:19:37 Date Recorded Body height Body temperature Oxygen saturation Oxygen saturation in Arterial blood by Pulse oximetry Heart rate Systolic And Diastolic Provider Name and Address Organization Details Last Updated DateTime 5 180.34 cm 97.6 [degF] 96 % 96 % 70 /min 102/64 mm[Hg] Kristine Gipson [facility] & [place] 5 08:13:31 Date Recorded Body height Body mass index (BMI) Body weight Body temperature Oxygen saturation Oxygen saturation in Arterial blood by Pulse oximetry Heart rate Respiratory rate Systolic And Diastolic Provider Name and Address Organization Details Last Updated DateTime 5 180.34 cm 23.8 kg/m2 81663.9 4 g 98 [degF] 94 % 94 % 71 /min 18 /min 115/59 mm[Hg] Janeth ADHIKARI [facility] & [place] 5 09:34:33 Social History Question Answer Notes LastModified by [employer] ion Details LastModified Time Tobacco Smoking Status Current Every Day Smoker PATRICK Fernandez [facility] & [place] 02/14/2024 09:56:11 What Is Your Level Of Caffeine Consumption? Occasional [email or web address] Information not available 04/05/2024 What Was The Date Of Your Most Recent Tobacco Screening? 04/05/2024 [email or web address] Information not available 04/05/2024 At What Age Did You Start Smoking Tobacco? 8 [email or web address] Information not available 02/14/2024 How Much Tobacco Do You Smoke? 1 PPD [email or web address] Information not available 02/14/2024 How Many Years Have You Smoked Tobacco? 69 [email or web address] Information not available 02/14/2024 Sex: Unknown Functional Status Question Answer Note LastModified by [employer] ion Details LastModified Time Do you use any illicit or recreational drugs? No [email or web address] Information not available 02/14/2024 Do you or have you ever used any other forms of tobacco or nicotine? No [email or web address] Information not available 04/05/2024 What is your level of alcohol consumption? None Information not available 02/14/2024 Mental Status None recorded. Family History Nothing Reported. Medical History No medical history recorded. Immunizations Vaccine Type Date Status Note Provider Nam e and Address Organization Details Recorded Time COVID-19 vaccine, vector-nr, rS-Ad26, PF, 0.5 mL 1 completed Kristine price PATRICK ADHIKARI [facility] & [place] 04/05/2024 13:16:44 Influenza, split virus, trivalent, preservative 9 completed Kristine price PATRICK Kristina ADHIKARI [facility] & [place] 04/05/2024 13:16:44 Past Encounters Encounter ID Performer Location Encounter Start Date Encounter Closed Date Diagnosis/Indication Diagnosis SNOMED-CT Code Diagnosis ICD10 Code Diagnosis Note [id number] Megan Springer MD [facility] [address] [facility] [address] [place] [address] 02/14/2024 09:33:39 02/14/2024 10:42:52 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 Will request P 16 results from [facility]. Discussed additional testing with on peripheral blood tempus testing. Will follow-up for any signs of mutational status. Metastatic malignant neoplasm to lung 42976367 C78.01 PET scan performed on December 22, [...] cm with no significan t uptake. Nausea 562139693 R11.0 as needed zofran and phenergren called in. [id number] Shelli Harris PA-C [facility] [address] [place] [address] 04/05/2024 13:12:21 04/05/2024 13:54:16 Squamous cell carcinoma of larynx 549345339 C32.9 CT scan on November 24, 2023 [...] response. Will request P 16 results from [facility]. Discussed additional testing with on peripheral blood tempus testing. Will follow-up for any signs of mutational status. Patient returns on April 05, 2024. Patient will receive cycle 1 of Keytruda today. Immunother apy education performed before treatment was started. Will follow up tolerabili ty Metastatic malignant neoplasm to lung 34539058 C78.01 PET scan performed on December 22, [...] cm with no significan t uptake. Nausea 392274115 R11.0 as needed zofran and phenergren called in. Immunological therapy 76 025034 Z51.12 Cycle 1 of Keytruda on April 05, 2024. [id number] Shelli Harris PA-C [facility] [address] [place] [address] 04/27/2024 08:56:12 04/27/2024 09:34:39 Squamous cell carcinoma of larynx 709426422 C32.9 CT scan on November 24, 2023 [...] response. Will request P 16 results from [facility]. Discussed additional testing with on peripheral [...] of Keytruda. Metastatic malignant neoplasm to lung 00918320 C78.01 PET scan performed on December 22, [...] cm with no significan t uptake. Nausea 465858783 R11.0 as needed zofran and phenergren called in. Immunological therapy 76 516509 Z51.12 Cycle 1 of Keytruda on April 05, 2024.Cycle 2 of Keytruda on April 27, 2024. [id number] Shelli Harris PA-C [facility] [address] [facility] [address] [place] [address] 05/18/2024 08:33:38 05/18/2024 08:42:33 Squamous cell carcinoma of larynx 936341372 C32.9 CT scan on November 24, 2023 [...] response. Will request P 16 results from [facility]. Discussed additional testing with on peripheral [...] up labs. Metastatic malignant neoplasm to lung 94993127 C78.01 PET scan performed on December 22, [...] cm with no significan t uptake. Nausea 071904140 R11.0 as needed zofran and phenergren called in. Immunological therapy 76 882622 Z51.12 Cycle 1 of Keytruda on April 05, 2024.Cycle 2 of Keytruda on April 27, 2024.Cycle 3 of Keytruda on May 18, 2024. Fatigue 30713713 R53.83 Patient has had some fatigue. Denies any additional changes. Will follow up labs. [id number] Shelli Harris PA-C [facility] [address] [place] [address] 06/08/2024 09:00:56 06/08/2024 09:26:16 Squamous cell carcinoma of larynx 534288297 C32.9 CT scan on November 24, 2023 [...] response. Will request P 16 results from [facility]. Discussed additional testing with on peripheral [...] up labs. Metastatic malignant neoplasm to lung 56471216 C78.01 PET scan performed on December 22, [...] cm with no significan t uptake. Nausea 575095628 R11.0 as needed zofran and phenergren called in. Immunological therapy 76 733939 Z51.12 Cycle 1 of Keytruda on April 05, 2024.Cycle 2 of Keytruda on April 27, 2024.Cycle 3 of Keytruda on May 18, 2024.Cycle 4 of Keytruda on June 08, 2024. Fatigue 32974582 R53.83 Patient has had some fatigue. Denies any additional changes. Will follow up labs. [id number] Shelli Harris PA-C [facility] [address] [place] [address] 06/29/2024 08:44:43 06/29/2024 09:19:14 Squamous cell carcinoma of larynx 408837976 C32.9 CT scan on November 24, 2023 [...] response. Will request P 16 results from [facility]. Discussed additional testing with on peripheral [...] up labs. 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 Nausea 580178604 R11.0 as needed zofran and phenergren called in. Immunological therapy 76 310309 Z51.12 Cycle 1 of Keytruda on April 05, 2024.Cycle 2 of Keytruda on April 27, 2024.Cycle 3 of Keytruda on May 18, 2024.Cycle 4 of Keytruda on June 08, 2024.Cycle 5 of Keytruda on June 29, 2024. Hypomagnesemia 484482368 E83.42 Labs on June 08, 2024 with magnesium low 1.6. Will follow-up labs today Constipation 44867154 K5 9.00 Patient has had some constipati on. Will send prescripti on for MiraLax. Cobalamin deficiency 190 247879 E53.8 History of vitamin B12 deficiency . He is currently receiving monthly vitamin B12. Labs on June 08, 2024 with vitamin B12 normal at 426. Normal folic acid [id number] Shelli Harris PA-C [facility] [address] [place] [address] 07/21/2024 09:56:03 07/21/2024 10:34:40 Squamous cell carcinoma of larynx 273002476 C32.9 CT scan on November 24, 2023 [...] response. Will request P 16 results from [facility]. Discussed additional testing with on peripheral [...] up labs. Metastatic malignant neoplasm to lung 93579184 C78.01 PET scan performed on December 22, [...] cm with no significan t uptake. Nausea 578094970 R11.0 as needed zofran and phenergren called in. Immunological therapy 76 846818 Z51.12 Cycle 1 of Keytruda on April 05, 2024.Cycle 2 of Keytruda on April 27, 2024.Cycle 3 of Keytruda on May 18, 2024.Cycle 4 of Keytruda on June 08, 2024.Cycle 5 of Keytruda on June 29, 2024.Cycle 6 of Keytruda on July 21, 2024. Hypomagnesemia 042822011 E83.42 Labs on June 08, 2024 with magnesium low 1.6. Will follow-up labs today Constipation 19365204 K5 9.00 Patient has had some constipati on. Will send prescripti on for MiraLax. Cobalamin deficiency 190 389785 E53.8 History of vitamin B12 deficiency . He is currently receiving monthly vitamin B12. Labs on June 08, 2024 with vitamin B12 normal at 426. Normal folic acid [id number] Shelli Harris PA-C [facility] [address] [place] [address] 08/10/2024 08:33:53 08/10/2024 09:31:13 Squamous cell carcinoma of larynx 899493449 C32.9 CT scan on November 24, 2023 [...] response. Will request P 16 results from [facility]. Discussed additional testing with on peripheral [...] up labs. Metastatic malignant neoplasm to lung 54863253 C78.01 PET scan performed on December 22, [...] cm with no significan t uptake. Nausea 420504704 R11.0 as needed zofran and phenergren called in. Immunological therapy 76 634019 Z51.12 Cycle 1 of Keytruda on April 05, 2024.Cycle 2 of Keytruda on April 27, 2024.Cycle 3 of Keytruda on May 18, 2024.Cycle 4 of Keytruda on June 08, 2024.Cycle 5 of Keytruda on June 29, 2024.Cycle 6 of Keytruda on July 21, 2024.Cycle 7 of Keytruda on August 10, 2024. Hypomagnesemia 216080679 E83.42 Labs on June 08, 2024 with magnesium low 1.6. Will follow-up labs today Constipation 04021706 K5 9.00 Patient has had some constipati on. Will send prescripti on for MiraLax. Cobalamin deficiency 190 193572 E53.8 History of vitamin B12 deficiency . He is currently receiving monthly vitamin B12. Labs on June 08, 2024 with vitamin B12 normal at 426. Normal folic acid Pruritic rash 26713624 L 28.2 Patient returns on August 10 [...] oral steroids if needed. Will follow up. [id number] Megan Springer MD [facility] [address] [facility] [address] [place] [address] 08/30/2024 08:35:40 08/30/2024 10:02:02 Squamous cell carcinoma of larynx 850005995 C32.9 CT scan on November 24, 2023 [...] response. Will request P 16 results from [facility]. Discussed additional testing with on peripheral [...] labs today. 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 Nausea 666981297 R11.0 as needed zofran and phenergren called in. Immunological therapy 76 139025 Z51.12 Cycle 1 of Keytruda on April 05, 2024.Cycle 2 of Keytruda on April 27, 2024.Cycle 3 of Keytruda on May 18, 2024.Cycle 4 of Keytruda on June 08, 2024.Cycle 5 of Keytruda on June 29, 2024.Cycle 6 of Keytruda on July 21, 2024.Cycle 7 of Keytruda on August 10, 2024.Cycle 8 of Keytruda on August 30, 2024. Hypomagnesemia 776653003 E83.42 Labs on June 08, 2024 with magnesium low 1.6. Will follow-up labs today Constipation 95061815 K5 9.00 Patient has had some constipati on. Will send prescripti on for MiraLax. Cobalamin deficiency 190 477679 E53.8 History of vitamin B12 deficiency . He is currently receiving monthly vitamin B12. Labs on June 08, 2024 with vitamin B12 normal at 426. Normal folic acid Gastrostom y tube in situ 095570551 Z93.1 Patient interested in possible removal of PEG tube. Discussed potential PEG button placement and will follow-up nutrition needs. [id number] Megan Springer MD [facility] [address] [place] [address] 09/20/2024 08:44:41 09/20/2024 10:32:15 Squamous cell carcinoma of larynx 988722378 C32.9 CT scan on November 24, 2023 [...] response. Will request P 16 results from [facility]. Discussed additional testing with on peripheral [...] pulmonary medicine. Metastatic malignant neoplasm to lung 78800709 C78.01 PET scan performed on December 22, [...] cm with no significan t uptake. Nausea 976107970 R11.0 as needed zofran and phenergren called in. Immunological therapy 76 089637 Z51.12 Cycle 1 of Keytruda on April [...] of Keytruda on September 20, 2024. Hypomagnesemia 773894773 E83.42 Labs on June 08, 2024 with magnesium low 1.6. Will follow-up labs today Constipation 52721906 K5 9.00 Patient has had some constipati on. Will send prescripti on for MiraLax. Cobalamin deficiency 190 076078 E53.8 History of vitamin B12 deficiency . He is currently receiving monthly vitamin B12. Labs on June 08, 2024 with vitamin B12 normal at 426. Normal folic acid Gastrostom y tube in situ 738077259 Z93.1 Patient interested in possible removal of PEG tube. Discussed potential PEG button placement and will follow-up nutrition needs. [id number] Megan Springer MD [facility] [address] [place] [address] 10/11/2024 08:27:14 10/11/2024 09:12:55 Squamous cell carcinoma of larynx 324193835 C32.9 CT scan on November 24, 2023 [...] response. Will request P 16 results from [facility]. Discussed additional testing with on peripheral [...] November 2023. Metastatic malignant neoplasm to lung 49139698 C78.01 PET scan performed on December 22, [...] cm with no significan t uptake. Nausea 066685332 R11.0 as needed zofran and phenergren called in. Immunological therapy 76 725187 Z51.12 Cycle 1 of Keytruda on April [...] of Keytruda on October 11, 2024. Hypomagnesemia 411539450 E83.42 Labs on June 08, 2024 with magnesium low 1.6. Will follow-up labs today Constipation 63560567 K5 9.00 Patient has had some constipati on. Will send prescripti on for MiraLax. Cobalamin deficiency 190 264987 E53.8 History of vitamin B12 deficiency . He is currently receiving monthly vitamin B12. Labs on June 08, 2024 with vitamin B12 normal at 426. Normal folic acid Gastrostom y tube in situ 944529906 Z93.1 Patient interested in possible removal of PEG tube. Discussed potential PEG button placement and will follow-up nutrition needs. [id number] Shelli Harris PA-C [facility] Hematolog y [address] [facility] [address] [place] [address] 11/02/2024 09:32:09 11/02/2024 09:52:54 Squamous cell carcinoma of larynx [id number] C32.9 CT scan on November 24, 2023 [...] response. Will request P 16 results from [facility]. Discussed additional testing with on peripheral [...] tube removal. Metastatic malignant neoplasm to lung 99764540 C78.01 PET scan performed on December 22, [...] cm with no significan t uptake. Nausea 230554047 R11.0 as needed zofran and phenergren called in. Immunological therapy 76 334739 Z51.12 Cycle 1 of Keytruda on April [...] of Keytruda on November 02, 2024. Hypomagnesemia 056702716 E83.42 Labs on June 08, 2024 with magnesium low 1.6. Will follow-up labs today Constipation 59291811 K5 9.00 Patient has had some constipati on. Will send prescripti on for MiraLax. Cobalamin deficiency 190 571822 E53.8 History of vitamin B12 deficiency . He is currently receiving monthly vitamin B12. Labs on June 08, 2024 with vitamin B12 normal at 426. Normal folic acid Gastrostom y tube in situ 257108260 Z93.1 Patient interested in possible removal of PEG tube. Discussed potential PEG button placement and will follow-up nutrition needs. [id number] Shelli Harris PA-C [facility] [address] [place] [address] 11/23/2024 08:39:33 11/23/2024 08:40:07 Squamous cell carcinoma of larynx 262609347 C32.9 CT scan on November 24, 2023 [...] response. Will request P 16 results from [facility]. Discussed additional testing with on peripheral [...] follow up. Metastatic malignant neoplasm to lung 89746172 C78.01 PET scan performed on December 22, [...] cm with no significan t uptake. Nausea 949870789 R11.0 He has needed zofran and phenergren prescribed . Immunological therapy 76 082040 Z51.12 Cycle 1 of Keytruda on April [...] of Keytruda on November 22, 2024. Hypomagnesemia 570473531 E83.42 Labs on June 08, 2024 with magnesium low 1.6. Will follow-up labs today Constipation 22313515 K5 9.00 Patient has had some constipati on. Prescripti on sent for MiraLax. Cobalamin deficiency 190 351878 E53.8 History of vitamin B12 deficiency . He is currently receiving monthly vitamin B12. Labs on June 08, 2024 with vitamin B12 normal at 426. Normal folic acid Gastrostom y tube in situ 252416802 Z93.1 Patient interested in possible removal of PEG tube. Discussed potential PEG button placement and will follow-up nutrition needs. He is scheduled to have his feeding tube removed as he is eating without trouble and has not used his feeding tube in at least 2-3 months. Severe dry skin 94909547 2 L85.3 Patient returns November 23, 2024. He does have dry pruritic skin. No rash. Discussed using moisturize r with Aquaphor and Aveeno body wash. Will follow-up. [id number] Shelli Harris PA-C [facility] [address] [place] [address] 12/14/2024 08:16:04 12/14/2024 09:03:13 Squamous cell carcinoma of larynx 525862581 C32.9 CT scan on November 24, 2023 [...] response. Will request P 16 results from [facility]. Discussed additional testing with on peripheral [...] progressio n. Metastatic malignant neoplasm to lung 53329058 C78.01 PET scan performed on December 22, [...] no significan t uptake. Immunological therapy 76 212647 Z51.12 Cycle 1 of Keytruda on April [...] 2024 due to elevated liver enzymes. Hypomagnesemia 076026709 E83.42 Labs on June 08, 2024 with magnesium low 1.6. Will follow-up labs today Constipation 25934444 K5 9.00 Patient has had some constipati on. Prescripti on sent for MiraLax. Cobalamin deficiency 190 131282 E53.8 History of vitamin B12 deficiency . He is currently receiving monthly vitamin B12. Labs on June 08, 2024 with vitamin B12 normal at 426. Normal folic acid Gastrostom y tube in situ 516157454 Z93.1 Patient interested in possible removal of PEG tube. Discussed potential PEG button placement and will follow-up nutrition needs. He is scheduled to have his feeding tube removed as he is eating without trouble and has not used his feeding tube in at least 2-3 months. Severe dry skin 27237356 2 L85.3 Patient returns November 23, 2024. [...] Liver enzy mes level above reference range 167360084 R74.01 Patient returns December 14, 2024. He [...] and hopefully resume Keytruda at that time. [id number] Shelli Harris PA-C [facility] [address] [place] [address] 12/21/2024 08:19:27 12/21/2024 09:11:07 Squamous cell carcinoma of larynx 473808554 C32.9 CT scan on November 24, 2023 [...] response. Will request P 16 results from [facility]. Discussed additional testing with on peripheral [...] progressio n. Metastatic malignant neoplasm to lung 09050454 C78.01 PET scan performed on December 22, [...] no significan t uptake. Immunological therapy 76 369162 Z51.12 Cycle 1 of Keytruda on April [...] on Keytruda on December 21, 2024. Hypomagnesemia 708177871 E83.42 Labs on June 08, 2024 with magnesium low 1.6. Will follow-up labs today Constipation 31554073 K5 9.00 Patient returns December 21, 2024. [...] prescripti on for Marleen. Cobalamin deficiency 190 161943 E53.8 History of vitamin B12 deficiency . He is currently receiving monthly vitamin B12. Labs on June 08, 2024 with vitamin B12 normal at 426. Normal folic acid Gastrostom y tube in situ 438972415 Z93.1 Patient interested in possible removal of PEG tube. Discussed potential PEG button placement and will follow-up nutrition needs. He is scheduled to have his feeding tube removed as he is eating without trouble and has not used his feeding tube in at least 2-3 months. Severe dry skin 30856952 2 L85.3 Patient returns November 23, 2024. He does have dry pruritic skin. No rash. Discussed using moisturize r with Aquaphor and Aveeno body wash. Will follow-up. Patient returns December 14, 2024. He is using moisturize r with Aquaphor and Aveeno body wash with improvemen t of dry skin. Nausea and vomiting 1692 1999 R11.2 Patient returns December 14, 2024 [...] Liver enzy mes level above reference range 793923418 R74.01 Labs December 14, 2024 with elevated [...] Keytruda today. Will continue to monitor labs. [id number] Shelli Harris PA-C [facility] [address] [facility] [address] [place] [address] 01/11/2025 09:03:46 01/11/2025 09:28:31 Squamous cell carcinoma of larynx 433478788 C32.9 CT scan on November 24, 2023 [...] response. Will request P 16 results from [facility]. Discussed additional testing with on peripheral [...] Keytruda today. Patient states he went to [facility] since previous visit due [...] atrial fibrillati on. Will request records from [facility] to review. Metastatic malignant neoplasm to lung 02127722 C78.01 PET scan performed on December 22, [...] no significan t uptake. Immunological therapy 76 264584 Z51.12 Cycle 1 of Keytruda on April [...] Keytruda today to monitor for toxicity. Hypomagnesemia 626401291 E83.42 Currently taking daily magnesium. Will follow-up labs today Constipation 44573946 K5 9.00 Patient has had constipati on is taking MiraLax and bowel movements have improved a little with this. Prescripti on sent for LinMaicoins and he is planning to pick this up from pharmacy today. Cobalamin deficiency 190 930279 E53.8 History of vitamin B12 deficiency . He is currently receiving monthly vitamin B12. Labs on June 08, 2024 with vitamin B12 normal at 426. Normal folic acid. Will follow up labs today. Severe dry skin 75531696 2 L85.3 Patient with dry pruritic skin. No rash. Discussed using moisturize r with Aquaphor and Aveeno body wash. He is using moisturize r with Aquaphor and Aveeno body wash with improvemen t of dry skin. Nausea and vomiting 1693 1999 R11.2 Prescribed Zofran as needed. [id number] Shelli Harris PA-C [facility] [address] [place] [address] 02/01/2025 08:35:14 02/01/2025 09:24:21 Immunological therapy 58236223 Z51.12 Cycle 1 of Keytruda on April [...] toxicity. Squamous c ell carcinoma of larynx 382652330 C32.9 CT scan on November 24, 2023 [...] response. Will request P 16 results from [facility]. Discussed additional testing with on peripheral [...] that time. Metastatic malignant neoplasm to lung 61324738 C78.01 PET scan performed on December 22, [...] cm with no significan t uptake. Hypomagnesemia 939656031 E83.42 Currently taking daily magnesium. Will follow-up labs today Constipation 37675781 K5 9.00 Patient has had constipati on is taking MiraLax and bowel movements have improved a little with this. Prescripti on sent for Marleen. Cobalamin deficiency 190 022129 E53.8 History of vitamin B12 deficiency . He is currently receiving monthly vitamin B12. Labs on June 08, 2024 with vitamin B12 normal at 426. Normal folic acid. Will follow up labs today. Severe dry skin 94078678 2 L85.3 Patient with dry pruritic skin. No rash. Discussed using moisturize r with Aquaphor and Aveeno body wash. He is using moisturize r with Aquaphor and Aveeno body wash with improvemen t of dry skin. Nausea and vomiting 1692 1999 R11.2 Prescribed Zofran as needed. [id number] Claudia Childs MD [facility] [address] [place] [address] 02/06/2025 08:26:36 02/06/2025 08:58:51 Irreducible inguinal hernia 084669750 K40.30 Right inguinal hernia containing chronicall y [...] minutes. Squamous c ell carcinoma of larynx 746295268 C32.9 Patient with stage IVC squamous cell [...] surgical options. Metastatic malignant neoplasm to lung 09261116 C78.01 [id number] Shelli Harris PA-C [facility] [address] [facility] [address] [place] [address] 02/22/2025 08:09:06 02/22/2025 08:44:34 Immunological therapy 62681599 Z51.12 Cycle 1 of Keytruda on April [...] 14, 2024 due to elevated liver enzymes.Cy aelxander 14 on Keytruda on December 21, 2024.Cycle 15 on Keytruda on January 11, 2025.Cycle 16 on Keytruda on February 01, 2025.Cycle 17 on Keytruda on February 22, 2025. Will review CBC CMP and TSH prior to Keytruda today to monitor for toxicity. 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 Will request P 16 results from [facility]. Discussed additional testing with on peripheral [...] and pelvis. Metastatic malignant neoplasm to lung 88947868 C78.01 PET scan performed on December 22, [...] cm with no significan t uptake. Hypomagnesemia 439988545 E83.42 Currently taking daily magnesium. Will follow-up labs today Constipation 78073430 K5 9.00 Patient has had constipati on is taking MiraLax and bowel movements have improved a little with this. Prescripti on sent for Linzess. Cobalamin deficiency 190 482302 E53.8 History of vitamin B12 deficiency . He is currently receiving monthly vitamin B12. Labs on June 08, 2024 with vitamin B12 normal at 426. Normal folic acid. Will follow up labs today. Severe dry skin 54345064 2 L85.3 Patient with dry pruritic skin. No rash. Discussed using moisturize r with Aquaphor and Aveeno body wash. He is using moisturize r with Aquaphor and Aveeno body wash with improvemen t of dry skin. Nausea and vomiting 1692 1999 R11.2 Prescribed Zofran as needed. [id number] Megan Springer MD [facility] [address] [place] [address] 03/14/2025 08:01:03 03/14/2025 08:41:05 Immunological therapy 98286961 Z51.12 Cycle 1 of Keytruda on April [...] toxicity. Squamous c ell carcinoma of larynx 262167095 C32.9 CT scan on November 24, 2023 [...] response. Will request P 16 results from [facility]. Discussed additional testing with on peripheral [...] Will follow-up Metastatic malignant neoplasm to lung 11552100 C78.01 PET scan performed on December 22, [...] cm with no significan t uptake. Hypomagnesemia 249355962 E83.42 Currently taking daily magnesium. Will follow-up labs today Constipation 21679623 K5 9.00 Patient has had constipati on is taking MiraLax and bowel movements have improved a little with this. Prescripti on sent for Marleen. Cobalamin deficiency 190 870822 E53.8 History of vitamin B12 deficiency . He is currently receiving monthly vitamin B12. Labs on June 08, 2024 with vitamin B12 normal at 426. Normal folic acid. Will follow up labs today. Severe dry skin 70848582 2 L85.3 Patient with dry pruritic skin. No rash. Discussed using moisturize r with Aquaphor and Aveeno body wash. He is using moisturize r with Aquaphor and Aveeno body wash with improvemen t of dry skin. Nausea and vomiting 1693 2000 R11.2 Prescribed Zofran as needed. Parotitis 27682814 K11.[address] scan of the neck [...] to potentiall y resume Keytruda. Will follow-up [id number] Shelli Harris PA-C [facility] [address] [place] [address] 05/10/2025 08:17:55 05/10/2025 09:28:53 Immunological therapy 06054229 Z51.12 Cycle 1 of Keytruda on April [...] 2025.Cycle 17 on Keytruda on February 22, 2025.Cycle 18 on Keytruda on May 10, 2025.Will review CBC CMP cortisol and TSH prior to Keytruda today to monitor for toxicity. Squamous c ell carcinoma of larynx 847351431 C32.9 CT scan on November 24, 2023 [...] response. Will request P 16 results from [facility]. Discussed additional testing with on peripheral [...] in the abdomen or pelvis. Patient returns for follow up on May 10, 2025. Will continue with Keytruda. Will resume Keytruda May 10, 2025. Will follow-up. Metastatic malignant neoplasm to lung 64622905 C78.01 PET scan performed on December 22, 2023 with findings of supraglott ic mass as well as hypermetab olism cervical lymph nodes and lung nodules that were hypermetab olic consistent with distant metastatic disease. Pulmonary nodule in the right upper lobe 1.1 cm in size. Superior segment nodule of the right lower lobe 1.0 cm with SUV of 6.3. Left adrenal mass measuring 2.5 x 3.3 cm with no significan t uptake. Hypomagnesemia 263489651 E83.42 Currently taking daily magnesium. Will follow-up labs today Constipation 32564838 K5 9.00 Patient has had constipati on is taking MiraLax and bowel movements have improved a little with this. Prescripti on sent for Marleen. Cobalamin deficiency 190 702791 E53.8 History of vitamin B12 deficiency . He is currently receiving monthly vitamin B12. Labs on June 08, 2024 with vitamin B12 normal at 426. Normal folic acid. Will follow up labs today. Severe dry skin 59977954 2 L85.3 Patient with dry pruritic skin. No rash. Discussed using moisturize r with Aquaphor and Aveeno body wash. He is using moisturize r with Aquaphor and Aveeno body wash with improvemen t of dry skin. Nausea and vomiting 1693 1999 R11.2 Prescribed Zofran as needed. Parotitis 38185653 K11.[address] scan of the neck [...] of disease in the abdomen or pelvis. Concern that right parotid gland mass appears new from prior imaging. Patient's Keytruda has been held. Patient previously has had liver function elevation secondary to Keytruda. 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 Uncommon side effect however patient has had several doses. Favoring trial of prednisone . Parotid gland biopsy April 23, 2025 negative for malignant cells. Low blood pressure 42336 003 I95.9 Patient returns for follow up on May 10, 2025. Patient states he has dizziness occasional ly. His blood pressure has been running a little low. He has been treated for hypertensi on per his primary care provider. Discussed keeping a log of his blood pressure and following up with primary care provider to see if his medication s need to be adjusted. Nodule of lung 588401872 R91.1 Patient states he recently had a chest CT at [facility] and nodule was noted in his lung. He states it was recommende d he have a biopsy of the nodule. Will request report from [facility]. He has stable lung nodules on scan March 05, 2025. Health Concerns Section Related Observation LastModified by Organization Detai ls LastModified Time None Recorded Concern Status LastModified by Organization Details LastModified Time None Recorded Advance Directives Directive None Recorded Payers Insurance Date Sequence Insurance Name Policy Number Policy Lockhart Covered Member ID Lockhart Member ID Guarantor Name 05/10/2025 [place] Ann Marie Squires [facility] [id number] Ann Marie [facility] 05/10/[address] [facility] (MEDICARE REPLACEMENT/A DVANTAGE - HMO) [id number] Ann Marie Squires [facility] [id number] Ann Marie [facility] 05/10/2025 1 [place] Ann Marie Squires [facility] [id number] Ann Marie [facility] 05/10/2025 2 [facility] (MEDICAID HMO) Ann Marie [facility] [id number] Ann Marie [facility] Notes Date Note Type Note Provider Name and Address Organization Details Recorded Time 02/01/2025 text/html 79 yo M returns for evaluation 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 Patient presented to [facility] for evaluation with ENT in November [...] response. Will request P 16 results from [facility]. Discussed additional testing with on peripheral [...] disease evident. Patient states he went to [facility] due to urinary retention. [...] pelvis at that time. Shelli Harris PA-C [address], [place], [address], [facility] & [place] 02/01/2025 09:21:30 02/06/2025 text/html 79-year-old man referred [...] symptoms after treatment. 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 Patient presented to [facility] for evaluation with ENT in November [...] response. Will request P 16 results from [facility]. Discussed additional testing with on peripheral [...] disease evident. Patient states he went to [facility] due to urinary retention. [...] chest abdomen and pelvis. 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 Patient presented to [facility] for evaluation with ENT in November [...] response. Will request P 16 results from [facility]. Discussed additional testing with on peripheral [...] disease evident. Patient states he went to [facility] due to urinary retention. [...] resume Keytruda. 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 Patient presented to [facility] for evaluation with ENT in November [...] response. Will request P 16 results from [facility]. Discussed additional testing with on peripheral [...] disease evident. Patient states he went to [facility] due to urinary retention. [...] imaging of the neck in 4-6 weeks. Patient returns for follow up on May 10, 2025. Patient states he has dizziness occasionally. His blood pressure has been running a little low. He has been treated for hypertension per his primary care provider. Discussed keeping a log of his blood pressure and following up with primary care provider to see if his medications need to be adjusted. Patient states he recently had a chest CT at [facility] and nodule was noted in his lung. He states it was recommended he have a biopsy of the nodule. Will request report from [facility]. He has stable lung nodules on scan March 05, 2025. Parotid gland biopsy April 23, 2025 negative for malignant cells. Will continue with Keytruda. Will resume Keytruda May 10, 2025. Will follow-up Shelli Harris PA-C [address], [place], [address], [place] - [facility] - [place] & [place] 05/10/2025 09:39:46
--- OUTSIDE RECORDS SUMMARY | 2025-05-16 10:35 | XMS_ITS | Clinical Summary ---
Author Organization [employer] ([place], [place], [place], [place]) Address [address] [place] [address] Care Team Providers Care Wheat Shipper Name Role Phone Unavailable Primary Care Provider [...] Date Luis rded Speak language other than Georgian at home Not on file 12/01/2023 Want [...] Evaluation (KED) 1945 Diabetic Eye Exam 1956 Depression Screening (12+) 1958 Hepatitis C [...] and Screening (12+) 12/01/2024 12/01/2023 Influenza Vaccine (#1) 2025 Medical Devices Implanted Type Area Property Assistant Device Identifier Shelf Expiration Date Model / Serial / Lot Pacemakers Pacemakers Insurance DUAL COMPLETE MCR ADV [facility]
--- OUTSIDE RECORDS SUMMARY | 2025-05-16 10:35 | XMS_ITS | Encounter Summary ---
Author Organization Healthcare Address [address] [place] [address] Care Team Providers Care Head Lineman Name Role Phone Efrain Sarah MD Unavailable [phone] Aris Lynch MD Unavailable [phone] Drew Howell MD Primary Care Provider [phone] Toñito Huerta MD Unavailable [phone] Encounter Details Date Type Department Care Team (Late Contact Info) Description 02/21/2024 Lab Requisition [facility] [address] [place] [address] Drea Loera MD [address] [place] [address] Malignant neoplasm of larynx, unspecified (CMS/HCC) Social History Tobacco Use Types Packs/Day Years Used Date Smoking Tobacco: Every Day Cigarettes 1 71.5 Started: 4 Smokeless Tobacco: Never Comments:Trying to quit Alcohol [...] Info) Description 06/05/2025 12:[address] [facility] General Surgery [address] [place] [address] Marta Verma MD [address] [place] [phone] documented as of this encounter Procedures Procedure Name Priority Date/Time Associated Diagnosis Comments AP MISCELLANEOUS LAB TEST (SO) Routine 02/21/2024 12:00 AM EDT Malignant neoplasm of larynx, unspecified (CMS/HCC) documented in this encounter Results * - AP Miscellaneous Test (02/21/2024 12:00 AM EDT) Test name xT Panel, PDL1-Tempu s 03/08/2024 1:03 PM EDT [facility] Comment:[id number] Test Result see scan 03/08/2024 1:03 PM EDT [facility] See Scanned Result 03/08/2024 1:03 PM EDT [facility] Tissue 02/21/2024 02/21/2024 9:5 3 AM EDT us Drea Loera MD LAB REF LAB BLOOD AND FLUID OR D Final Result [facility] [address] [place] [address] documented in this encounter Visit Diagnoses Diagnosis Malignant neoplasm of larynx, unspecified (CMS/HCC) documented in this encounter Additional Health Concerns Assessment Noted Time A fall risk assessment has been complete d for the patient 01/19/2024 10:49 AM EDT A Body Mass Index follow-up plan has been documented for the patient 01/01/2024 10:12 AM EST documented as of this encounter Care Teams Head Lineman Relationship Specialty Start Date End Date Drew Howell MD [address] [place] [address] [address] [place] [address] PCP - General 12/23/23 Efrain Sarah MD [facility] [employer] [place] [address] 12/02/23 Aris Lynch MD [address] [facility] Cancer [address] [phone] Surgeon Otolaryngology 12/02/23 Toñito Huerta MD [address] [phone] Consulting Physician Medical Oncology 01/18/24 documented as of this encounter
--- OUTSIDE RECORDS SUMMARY | 2025-05-16 10:35 | XMS_ITS | Continuity of Care Document ---
Author Organization [facility] Address [address] [facility] [address] [place] [address] Care Team Providers Care Massotherapist Name Role Phone DESI VALDERRAMA Radiation Oncologist Assessment No assessment recorded. Plan of Treatment Reminders Order Date Submit Date Provider Last Modified By Organization Details Last Modified Time Details Appointments None recorded . Lab CBC w/ diff 025 05/10/[address] [facility], [address] [place], [address], 5 09:14:18 CMP, serum or plasma 025 05/10/20 25 JERICHO [facility], [address] [place], [address], 5 09:31:57 TSH, serum or plasma 025 05/10/[address] [facility], [address] [place], [address], 5 09:14:18 cortisol , am, serum 025 05/10/[address] [facility], [address] [place], [address], 5 09:14:18 Referral None recorded . Procedures None recorded . Surgeries None recorded . Imaging None recorded . Medication Orders None recorded . Patient TargetsNo targets recorded. Patient InstructionsNo instructions recorded. Reason for Referral None Reported. Results Created Date Observation Date Name Description Value Unit Range Abnormal Flag Note LastModifiedBy Organization Detail LastModifiedTime 04/23/20 25 04/23/2025 US fna w/valerie ge [facility] ity Hospit al [address] [place] [address] Phone: Fax: Name: SUSANNAH KIM Exam Date: 025 : 1944 Age 79 years Gender : M Access ion: [id number] Physic cindy: MEGAN SPRINGER Facili ty: [facility] Facili ty HSV: Outpat ient Exam: US FNA W/IMAG E ULTRAS OUND GUIDED Biopsy of left paroti d gland. Perfor med by: Guero squires PLANT MAINTENANCE SUPERVISOR, DATA ENTRY CLERK-C. Attend ing physic cindy: Dr. Narayan simental MD. 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 TECHNI QUE/OK OCEDUR E: Fully inform ed kayy barrera t was obtain ed from the patien t. A time out was perfor med. After the approa ch was planne d using prelim inary ultras ound guidan ce, the area was preppe d and draped in steril e fashio n. The skin and subcut aneous tissue s were anesth etized using a mix of 1% lidoca ine and sodium bicarb edjuan. Using a 25-gau ge needle , it [...] loss. They were return ed to the [facility] area in satisf actory condit ion. IMPRES TONY: Succes sful ultras ound-g uided left paroti d gland biopsy . Pathol ogy pendin g. Electr onical ly signed by: Narayan simental MD 2024 11:38 AM EDT RP Workst ation: [id number] Dictat ed By: Narayan Avitia Transc ribed By: Transc ribed On: 025 11:38 AM Electr onical ly signed by: Narayan Avitia 025 Thank you for referr ing PHONG THSUSANNAH Y to [facility] it Hospit al. Legall y authen ticate d by HARLEY NAIR 04-23 11:38: 08 CC'ed Logic: Orderi ng Provid er: RACHEAL GUZMAN Attend ing Provid er: RACHEAL GUZMAN Referr ing Provid er: RACHEAL GUZMAN Admitt ing Provid er: RACHEAL GUZMAN [email or web address] [facility] - Physical Therapy [address] [facility], [place], [address], 04/23/2025 11:48:22 05/10/20 25 04/13/2025 CT, chest , w/o contr ast No observ ation record ed. [email or web address] [facility] (Med Record) [address], [place], [address], 05/14/2025 10:34:55 Result Notes None recorded. Procedures Surgical History Date Name Laterality Status Provider Name and Address Organization Details Recorded Time open heart surgery completed Janeth Aguileradilip [facility] [place] 02/14/2024 09:56:24 operative procedure on knee completed Kristine Gipson [facility] [place] 04/05/2024 13:20:11 Imaging Results None recorded. Procedure Notes None recorded. Medical Equipment None Reported. Allergies Allergen ID Allergen Name Allergen Category Reaction Reaction Severity Criticality Documentation Date Start Date Code Code System Note Provider Name and Address Organization Details Recorded Time 166565 Product containin g penicilli n (product) medicatio n hives Not available Not available 02/06/2025 56671 8001 SNOMED Jackie Yuli price [facility] [place] 08:40:08 Medications Name Sig Start Date Stop [...] Not Available Not Available No t Available [facility]- [facility]. Springer active Not Available Not Available [...] Updated DateTime 5 180.34 cm 23.8 kg/m2 16424.9 4 g 98 [degF] 94 % 94 % 71 /min 18 /min 115/59 mm[Hg] Janeth ADHIKARI [facility] [place] 5 09:34:33 Social History Question Answer Notes LastModified by Organizat ion Details LastModified Time Tobacco Smoking Status Current Every Day Smoker PATRICK Fernandez [facility] [place] 02/14/2024 09:56:11 What Is Your Level Of Caffeine Consumption? Occasional [email or web address] Information not available 04/05/2024 What Was The Date Of Your Most Recent Tobacco Screening? 04/05/2024 [email or web address] Information not available 04/05/2024 At What Age Did You Start Smoking Tobacco? 8 [email or web address] Information not available 02/14/2024 How Much Tobacco Do You Smoke? 1 PPD [email or web address] Information not available 02/14/2024 How Many Years Have You Smoked Tobacco? 69 [email or web address] Information not available 02/14/2024 Sex: Unknown Functional Status Question Answer Note LastModified by Organizat ion Details LastModified Time Do you use any illicit or recreational drugs? No [email or web address] Information not available 02/14/2024 Do you or have you ever used any other forms of tobacco or nicotine? No [email or web address] Information not available 04/05/2024 What is your level of alcohol consumption? None [email or web address] Information not available 02/14/2024 Mental Status None recorded. Family History Nothing Reported. Medical History No medical history recorded. Immunizations Vaccine Type Date Status Note Provider Nam e and Address Organization Details Recorded Time COVID-19 vaccine, vector-nr, rS-Ad26, PF, 0.5 mL 1 completed Kristine Gipson PATRICK price [facility] [place] 04/05/2024 13:16:44 Influenza, split virus, trivalent, preservative 9 completed Kristine price PATRICK - [facility] [place] [facility] [place] 04/05/2024 13:16:44 Past Encounters Encounter ID Performer Location Encounter Start Date Encounter Closed Date Diagnosis/Indication Diagnosis SNOMED-CT Code Diagnosis ICD10 Code Diagnosis Note [id number] Shelli Shannon PA-C [facility] [address] [place] [address] 05/10/2025 08:17:55 05/10/2025 09:28:53 Immunological therapy 15390767 Z51.12 Cycle 1 of Keytruda on April [...] toxicity. Squamous c ell carcinoma of larynx 158997569 C32.9 CT scan on November 24, 2023 [...] response. Will request P 16 results from [facility]. Discussed additional testing with on peripheral blood [...] Will follow-up. Metastatic malignant neoplasm to lung 57741564 C78.01 PET scan performed on December 22, [...] cm with no significan t uptake. Hypomagnesemia 655905596 E83.42 Currently taking daily magnesium. Will follow-up labs today Constipation 27534705 K5 9.00 Patient has had constipati on is taking MiraLax and bowel movements have improved a little with this. Prescripti on sent for Marleen. Cobalamin deficiency 190 848248 E53.8 History of vitamin B12 deficiency . He is currently receiving monthly vitamin B12. Labs on June 08, 2024 with vitamin B12 normal at 426. Normal folic acid. Will follow up labs today. Severe dry skin 66840227 2 L85.3 Patient with dry pruritic skin. No rash. Discussed using moisturize r with Aquaphor and Aveeno body wash. He is using moisturize r with Aquaphor and Aveeno body wash with improvemen t of dry skin. Nausea and vomiting 1693 2000 R11.2 Prescribed Zofran as needed. Parotitis 71165900 K11.[address] scan of the neck [...] negative for malignant cells. Low blood pressure 07997 003 I95.9 Patient returns for follow up [...] need to be adjusted. Nodule of lung 466150325 R91.1 Patient states he recently had a chest CT at [facility] and nodule was noted in his lung. He states it was recommende d he have a biopsy of the nodule. Will request report from [facility]. He has stable lung nodules on scan March 05, 2025. Health Concerns Section Related Observation LastModified by Organization Detai ls LastModified Time None Recorded Concern Status LastModified by Organization Details LastModified Time None Recorded Payers Encounter Date Sequence Insurance Name Policy Number Policy Lockhart Covered Member ID Lockhart Member ID Guarantor Name 05/10/2025 2 [employer] [facility] (MEDICAID HMO) [facility] [id number] Vamsi Mallory 05/10/2025 1 [facility] (MEDICARE REPLACEMENT/A DVANTAGE - HMO) [facility] [id number] [facility] Notes Date Note Type Note Provider Name and Address Organization Details Recorded Time 05/10/2025 text/html 79 yo M returns for evaluation 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 Patient presented to [facility] for evaluation with ENT in November 2023. [...] response. Will request P 16 results from [facility]. Discussed additional testing with on peripheral blood [...] disease evident. Patient states he went to [facility] due to urinary retention. He was diagnosed [...] he recently had a chest CT at [facility] and nodule was noted in his lung. He states it was recommended he have a biopsy of the nodule. Will request report from [facility]. He has stable lung nodules on scan March 05, 2025. Parotid gland biopsy April 23, 2025 negative for malignant cells. Will continue with Keytruda. Will resume Keytruda May 10, 2025. Will follow-up Shelli Shannon PA-C [address], [place], [address], [place] [facility] [place] [facility] [place] 05/10/2025 09:39:46
[2025-05-16 10:36] VITALS: BMI 25.9
[2025-05-16 11:06] LABS: Hematocrit 39.3 % (42.0-52.0); Hemoglobin 12.8 g/dL (14.1-18.0); Immature Granulocytes % 0.3 %; Mean Corpuscular HGB Conc 32.6 g/dL (31.8-35.4); Mean Corpuscular Hemoglobin 30.8 pg (27.0-31.2); Mean Corpuscular Volume 94.5 fl (80-94); Nucleated Red Blood Cells % 0 %; Platelet Count 159 K/mm3 (142-424); Red Blood Count 4.16 M/mm3 (4.60-6.20); Red Cell Distribution Width-SD 50.6 fL; White Blood Count 7.4 K/mm3 (4.8-10.8)
[2025-05-16 11:20] LABS: Anion Gap 15.2 mEq/L (5-15); Blood Urea Nitrogen 13 mg/dl (9-20); Calcium 9.4 mg/dl (8.4-10.2); Carbon Dioxide 30 mmol/L (22.0-30.0); Chloride 99 mmol/L (98-107); Creatinine Clearance Estimated 69 mL/min (50-200); Creatinine,Serum 0.80 mg/dl (0.66-1.25); Estimated Glomerular Filt Rate 93 ml/min (>60); GFR (African American) 113 ML/MIN (>60); Glucose 126 mg/dl (74-100); Potassium 4.2 mmoL/L (3.5-5.1); Sodium 140 mmol/L (136-145)
== END 2025-05-16 23:59 | disposition home or self-care (01) ==
LOC: PREOP 10:33
PROVIDERS: PCP Family Medicine; Visit Provider Internal Medicine Pulmonary Disease
DX: Z01.812 Encounter for preprocedural laboratory examination (principal)
CPT/HCPCS: 80048; 85025

== ENCOUNTER 2025-05-21 08:31 | Day surgery (SDC) | payer MEDICARE, OTHER, SELFPAY ==
[2025-05-21] VITALS (9 sets, daily range): BP systolic 103–126; BP diastolic 51–72; PULSE 66–75; RESP 16–24; TEMP 36.1–36.3; O2SAT 92–97; BMI 25.9
[2025-05-21 09:15] LABS: POC Glucose,Bedside 91 (70-110)
--- NOTE | 2025-05-21 09:30 | P.PNANES_ITS ---
[facility] Disclaimer: The information contained in this section may have been updated after the patient was seen, as this information can be updated by other users. Medical History Lung nodule Atypical angina Abnormal cardiovascular stress test Chronic atrial fibrillation SOB (shortness of breath) on exertion (HFpEF) heart failure with preserved ejection fraction Pre-op evaluation Mass of larynx Dizziness History of cardiac pacemaker in situ Cold extremities Bilateral cold feet Edema of both feet Decreased pulses in feet Cool skin Sick sinus syndrome Atrial fibrillation with controlled ventricular rate Idioventricular rhythm Hypomagnesemia Symptomatic bradycardia Acute exacerbation of chronic obstructive airways disease Community acquired pneumonia Congestive heart failure Obesity (BMI 30.0-34.9) Onychodystrophy Gastroenteritis Weakness Keratosis Pain around toenail Onychomycosis Thyroid cancer Lung cancer Cancer of kidney Diabetes mellitus Hyperlipidemia Hypertension Cardiac pacemaker in situ PAF (paroxysmal atrial fibrillation) Chest pressure Bilateral leg pain Dyspnea Tobacco dependence syndrome PAC (premature atrial contraction) Sinus bradycardia Abnormal electrocardiography CAD (coronary artery disease) Surgical History H/O arthroscopy of right knee Hx of CABG Family History Other Diabetes Social History Smoking Status: Current some day smoker tobacco type: cigarettes packs per day: 1 second hand exposure: Yes alcohol intake: never substance use type: denies use current occupational status: retired and disabled Travel in the last 8 weeks?: None household members: spouse housing: house current occupational exposures/hazards: No caffeine: Yes Have you lived/traveled outside US in past 30 days?: No Contact w/someone who lives/traveled outside US past 30 days?: No Exposure to someone with infectious disease in past 14 days?: No Do you have a fever (greater than 100.4 F or 38 C)?: No Have you tested positive for COVID-19?: No Exposed to someone with COVID-19 in past 14 days?: No Do you have a sore throat?: No Do you have a cough?: No Do you have any weakness?: No Do you have any diarrhea?: No Are you experiencing any unusual bleeding?: No Do you have any muscle aches/pain?: No Do you have any abdominal pain?: No Are you experiencing loss of taste or smell?: No [facility] Anesthesia Checklist Patient Identification Patient Identification: Arm Band Structural Data Admitted From: Home Planned Operative Procedure/s: Bronchoscopy Consent for Planned Operative Procedure(s) Verified: Yes Verified Documents: Surgical Consent and History and Physical NPO Status Verified Time NPO: 00:00 Additional verifications Anesthesia Reactions: No Hx Blood Transfusions: No Blood Transfusion Reaction: No Airway Assessment Mallampati Score:: Class II C-Spine Mobility Assessed: Yes TMJ Mobility Assessed: Yes Dentition: Edentulous Neurological Assessment Level of Consciousness: Awake, Alert and Appropriate Anesthesia Plan Anesthesia Risk discussed: Yes Anesthesia Plan: Verified ASA Class: IV Anesthesia Type: General
--- NOTE | 2025-05-21 10:30 | EXP.PULM.CON ---
History of Present Illness History of present illness: Mr. Mallory is a 79-year-old female current smoker greater than [id number] smoking following in pulmonary clinic for exertional dyspnea COPD lung cancer screening had a low-dose CT performed April 2025 abnormal with new right hilar lymph node along with lymphadenopathy schedule for bronchoscopy airway examination transbronchial endobronchial lung biopsy and EBUS FNA presented to the hospital for the scheduled procedure. [facility] Disclaimer: The information contained in this section may have been updated after the patient was seen, as this information can be updated by other users. Medical History (Updated 05/21/25 @ 12:34 by Hayden Newman MD) Endobronchial mass Mediastinal lymphadenopathy Hilar lymphadenopathy Lung nodule Atypical angina Abnormal cardiovascular stress test Chronic atrial fibrillation SOB (shortness of breath) on exertion (HFpEF) heart failure with preserved ejection fraction Pre-op evaluation Mass of larynx Dizziness History of cardiac pacemaker in situ Cold extremities Bilateral cold feet Edema of both feet Decreased pulses in feet Cool skin Sick sinus syndrome Atrial fibrillation with controlled ventricular rate Idioventricular rhythm Hypomagnesemia Symptomatic bradycardia Acute exacerbation of chronic obstructive airways disease Community acquired pneumonia Congestive heart failure Obesity (BMI 30.0-34.9) Onychodystrophy Gastroenteritis Weakness Keratosis Pain around toenail Onychomycosis Thyroid cancer Lung cancer Cancer of kidney Diabetes mellitus Hyperlipidemia Hypertension Cardiac pacemaker in situ PAF (paroxysmal atrial fibrillation) Chest pressure Bilateral leg pain Dyspnea Tobacco dependence syndrome PAC (premature atrial contraction) Sinus bradycardia Abnormal electrocardiography CAD (coronary artery disease) Surgical History H/O arthroscopy of right knee Hx of CABG Family History Other Diabetes Social History Smoking Status: Current some day smoker tobacco type: cigarettes packs per day: 1 second hand exposure: Yes alcohol intake: never substance use type: denies use current occupational status: retired and disabled Travel in the last 8 weeks?: None household members: spouse housing: house current occupational exposures/hazards: No caffeine: Yes Review of Systems Review of Systems Review of systems:: pertinent systems reviewed and negative unless documented below Constitutional Constitutional: Reports as per HPI, Reports lethargy and Reports weakness Eyes Eyes: Reports as per HPI Comments: Denies any issue with his vision ENT Ears, Nose, Mouth, and Throat: Reports as per HPI Comments: Patient denies any problems swallowing food or drinking liquid *Cardiovascular Cardiovascular: Reports as per HPI and Reports dyspnea on exertion *Respiratory Respiratory: Reports dyspnea on exertion Comments: Patient is a chronic smoker for more than 70 years started at age 9 *Gastrointestinal Gastrointestinal: Reports as per HPI *Genitourinary Genitourinary: Reports as per HPI *Musculoskeletal Musculoskeletal: Reports as per HPI, Reports muscle weakness and Reports myalgias Integumentary/Breasts Skin/Breast: Reports as per HPI *Neurologic Neurologic: Reports as per HPI and Reports weakness Comments: Found no obvious neurological deficits he able to move both extremities well. But I did not stand him during the exam in the emergency room, but have placed orders that he is only to be up with assistance Psychiatric Psychiatric: Reports as per HPI Endocrine Endocrine: Reports as per HPI Hematologic/Lymphatic Hematologic/Lymphatic: Reports as per HPI Allergic/Immunologic Allergic/Immunologic: Reports as per HPI Pulmonology Exam Inpatient Vital signs and Labs for Last 24 Hours: Temp Pulse Resp BP Pulse Ox O2 Del Method 97 F L 70 16 126/72 96 Room Air 05/21/25 09:02 05/21/25 09:02 05/21/25 09:02 05/21/25 09:02 05/21/25 09:02 05/21/25 09:02 Laboratory Results - last 24 hr 05/21/25 09:06: POC Glucose 91 I & O for Labs for Last 24 Hours: Intake & Output 05/18/25 05/19/25 05/20/25 05/21/25 23:59 23:59 23:59 23:59 Weight 176 lb Constitutional: Present moderate distress Head: Present normocephalic and atraumatic ENT: Present normal exam, normal oropharynx and mucous membranes moist Neck: Present normal inspection and full ROM Respiratory: Present diminished air movement and able to speak in complete sentences; Absent respiratory distress, wheezes or crackles Cardiac: Present S1/S2, Tachycardia and radial pulses present GI: Present soft and distention; Absent tenderness or guarding Skin: Present intact; Absent cyanosis or jaundice Neuro: Present alert, awake and oriented x 3 Extremities: Present normal inspection; Absent clubbing or cyanosis Psychiatric: Present normal affect and cooperative Meds Home Medications and Allergies Home Medications ?Medication ?Instructions ?Recorded ?Confirmed ?Type metformin 750 mg tablet,extended 750 mg PO BID 01/19/22 05/21/25 History release 24 hr Held on 01/18/25. Instructions: Resume on 01/21/25. dulaglutide 1.5 mg/0.5 mL 1.5 mg (0.5 mL) SQ WEEKLY 90 days 07/30/23 05/21/25 Rx subcutaneous pen injector #6.5 mL (Trulicity) albuterol sulfate 90 mcg/actuation 2 inh inhalation Q4HP PRN 10/05/24 05/21/25 History aerosol inhaler Shortness Of Breath Or Wheezing magnesium oxide 400 mg PO DAILY 12/26/24 05/21/25 History ondansetron HCl 8 mg tablet 8 mg PO BID 12/26/24 05/21/25 History aspirin 81 mg tablet 81 mg PO DAILY 01/29/25 05/21/25 History blood pressure monitor #1 ea 01/29/25 05/21/25 Rx ipratropium 0.5 mg-albuterol 3 mg 3 ml inhalation DAILY 01/29/25 05/21/25 History (2.5 mg base)/3 mL nebulization soln tamsulosin 0.4 mg capsule (Flomax) 0.4 mg PO DAILY 90 days #90 caps 03/12/25 05/21/25 Rx atorvastatin 40 mg tablet See Rx Instructions .Route 03/28/25 05/21/25 Rx .COMPLEX #90 tabs cetirizine 10 mg tablet 10 mg PO DAILY 03/29/25 05/21/25 History furosemide 40 mg tablet 40 mg PO Q OTHER DAY 03/29/25 05/21/25 History losartan 50 mg tablet 50 mg PO DAILY 03/29/25 05/21/25 History fluticasone fur. 100 mcg-umeclid 1 inh inhalation DAILY 05/16/25 05/21/25 History 62.5 mcg-vilant 25 mcg inhalat.powder (Trelegy Ellipta) New Prescriptions to Start Prescriptions: Allergies Allergy/AdvReac Type Severity Reaction Status Date / Time Penicillins Allergy Hives Verified 05/21/25 09:01 Assessment and Plan *Assessment and plan (1) Lung nodule: Status: Acute Category: Medical Code(s): R91.1 - Solitary pulmonary nodule (2) Hilar lymphadenopathy: Status: Acute Category: Medical Code(s): R59.0 - Localized enlarged lymph nodes (3) Mediastinal lymphadenopathy: Status: Acute Category: Medical Code(s): R59.0 - Localized enlarged lymph nodes (4) Endobronchial mass: Status: Acute Category: Medical Code(s): R91.8 - Other nonspecific abnormal finding of lung field Plan Mr. Mallory is a 79-year-old female current smoker greater than [id number] smoking following in pulmonary clinic for exertional dyspnea COPD lung cancer screening had a low-dose CT performed April 2025 abnormal with new right hilar lymph node along with lymphadenopathy schedule for bronchoscopy airway examination transbronchial endobronchial lung biopsy and EBUS FNA presented to the hospital for the scheduled procedure. Patient admits has not taking his Eliquis for the last 4 weeks. Admits stopping his aspirin 5 days prior to the procedure. Risks and benefit of the bronchoscopy procedure explained in detail including but nit limited to sore throat, difficult breathing, airway injury, vocal cord injury, respiratory failure, lung collapse, infections, abnormal heart rate, medication reactions and . Alternative plan of care options including follow up imaging and observation were also explained to the patient along with possible risks and benefits associated. Patient expressed his complete understanding of the procedure, alternative plan of care options and possible complications and agreed to proceed with bronchoscopy procedure. There were no questions for me at the end of the conversation and the consent was signed. Plan: Proceed with bronchoscopy as previously scheduled.
--- NOTE | 2025-05-21 12:25 | EXP.ANES.I ---
[facility] Anesthesia Record Part I Anesthesia Record I Intake, IV Amount: 1,000 Hydration: Adequate Estimated blood loss (mL): 0 Urine output (mL): 0 Blood Products used (#): none Blood Pressure: 120/57 SaO2: 97 Pulse Rate: 70 Airway Patency: Patent Respiratory Rate: 24 Temperature: 97.3 F Patient is:: Drowsy and Stable Stable to PACU at:: 12:19
--- NOTE | 2025-05-21 12:31 | XR_ITS ---
FINAL REPORT CLINICAL HISTORY: post bronch COMPARISON: 10/04/2024 FINDINGS: A single frontal view of the chest was obtained. Mild atelectasis in the left lung base. No evidence of pulmonary hemorrhage or pneumonia. No pneumothorax. The patient is status post CABG. Heart size is normal. IMPRESSION: No evidence of pneumothorax following bronchoscopy. Reviewed, Interpreted and Dictated by Mundo Ogden MD Transcribed by Dayanna Pineda Authenticated and [facility]
--- NOTE | 2025-05-21 12:33 | XR_ITS ---
FINAL REPORT CLINICAL HISTORY: BRONCH IN OR 0.4 min 2.99 mGy FINDINGS: FLUOROSCOPY LESS THAN 1 HOUR HISTORY: Fluoroscopy guidance. FINDINGS: Fluoroscopic guidance was provided for bronchoscopy in the OR. A single spot film was obtained. A total of 0.4 minutes of fluoroscopy time were used. DAP: 2.99 mGy IMPRESSION: As above. Reviewed, Interpreted and Dictated by Mundo Ogden MD Transcribed by Dayanna Pineda Authenticated and [facility]
--- NOTE | 2025-05-21 12:35 | P.PCN_ITS ---
Procedure: Date: 05/21/25 Patient Date of :: 1945 Procedure Performed:: Bronchoscopy airway examination bronchoalveolar lavage, endobronchial lung biopsy, transbronchial lung biopsy and endobronchial ultrasound-guided fine- needle aspiration of lymph node Indications:: Lung nodule Lymphadenopathy Performing Provider:: Hayden Newman MD Referring Provider:: Dr: Christa Howell MD Sedation:: General anesthesia Procedure:: Bronchoscopy airway examination bronchoalveolar lavage, endobronchial lung biopsy, transbronchial lung biopsy and endobronchial ultrasound-guided fine- needle aspiration of lymph node: A clean EBUS bronchoscopy was advanced the ET tube and lymph node surveillance was performed. Patient noted to have lymphadenopathy at station 4R, 4L, 7 and station 10L. A total of 5 passes were performed in each lymph node station on the results and FNA sample was sent in CytoLyt for cytopathologic examination. EBUS bronchoscopy was retracted and a clean DIAGNOSTIC bronchoscopy was advanced through the ET tube and airways were examined up to subsegmental bronchi. Endobronchial lesion was noted in the right upper lobe subsegmental bronchi with near complete occlusion of endobronchial lumen. Rest of the airways appeared grossly normal, no evidence of mucoid secretions, mucous plugging active bleeding/old blood clots noted. Bronchoalveolar lavage was performed in the RIGHT UPPER LOBE with instillation of 60 cc normal saline with return of 15 cc back. BAL fluid was sent for bacterial cultures and cytopathology. Sample was not sent for cell count differential AFB and fungal stain culture. Endobronchial biopsy performed at the noted right upper lobe subsegmental endobronchial lesion. Total of 5 endobronchial biopsies were performed and sent in formalin for cytopathologic examination Transbronchial biopsy was performed in the RIGHT UPPER LOBE with a total of 7 biopsies performed, 5 biopsy specimens were sent in formalin for cytopathologic examination. The other 2 biopsy samples, were sent one each in two separate normal saline specimen cups for bacterial fungal and AFB stain cultures. Special request was also made for the pathologist to evaluate for AFB and fungal organisms on the cytopathologic examination. Patient tolerated the procedure with no immediate acute complications. We will follow the patient in pulmonary clinic in 7 to 10 days. Findings:: Please see the procedure note Recommendations:: Postoperative bronchoscopy instructions Follow in pulmonary clinic in 5-7 days Complications:: No acute immediate Estimated blood obtained (mL): 10
--- NOTE | 2025-05-22 09:53 | EXP.ANES.II ---
[facility] Anesthesia Record Part II Anesthesia Record Part II Discharge Time: 12:49 Destination: [facility] PACU nurse assessment reviewed?: Yes Patient Condition:: Good Anesthesia Complications:: None Swallowing reflex intact?: Yes Airway Patency: Patent Cyanosis?: No Blood Pressure: 103/61 SaO2: 92 Respiratory Rate: 18 Pulse Rate: 70 Temperature: 97.0 F Mental Status: Alert & Oriented Pain level:: 0 Nausea and/or vomitting:: None Intake, IV Amount: 1,000 Hydration: Adequate
[2025-05-22 09:54] VITALS: BP 103/61; PULSE 70; RESP 18; TEMP 36.1; O2SAT 92
== END 2025-05-21 13:49 | disposition home or self-care (01) ==
PROVIDERS: PCP Family Medicine; Visit Provider Internal Medicine Pulmonary Disease
PROC: BB4BZZZ Ultrasonography of Pleura (ICD-10-PCS; principal; 2025-05-21 10:00)
DX: C34.11 Malignant neoplasm of upper lobe, right bronchus or lung (principal); R59.0 Localized enlarged lymph nodes; I11.0 Hypertensive heart disease with heart failure; I50.30 Unspecified diastolic (congestive) heart failure; J44.9 Chronic obstructive pulmonary disease, unspecified; I25.10 Atherosclerotic heart disease of native coronary artery without angina pectoris; I48.20 Chronic atrial fibrillation, unspecified; E11.9 Type 2 diabetes mellitus without complications; F17.210 Nicotine dependence, cigarettes, uncomplicated; E78.5 Hyperlipidemia, unspecified; Z85.528 Personal history of other malignant neoplasm of kidney; Z85.850 Personal history of malignant neoplasm of thyroid; Z95.0 Presence of cardiac pacemaker; Z88.0 Allergy status to penicillin; Z95.1 Presence of aortocoronary bypass graft; Z79.51 Long term (current) use of inhaled steroids; Z79.01 Long term (current) use of anticoagulants; Z79.82 Long term (current) use of aspirin; Z79.84 Long term (current) use of oral hypoglycemic drugs; Z79.85 Long-term (current) use of injectable non-insulin antidiabetic drugs; Z79.899 Other long term (current) drug therapy
CPT/HCPCS: 31624; 31625; 31628; 31653; 71045; 76000; 82962; 87070; 87077; 87101; 87116; 87186; 87205; 88112; 88173; 88305; 88341; 88342; 88360; J1100; J2003; J2405; J2704; J3010

== ENCOUNTER 2025-05-31 08:43 | Outpatient (CLI) | payer MEDICARE, OTHER, SELFPAY ==
--- OUTSIDE RECORDS SUMMARY | 2025-05-31 08:46 | XMS_ITS | Encounter Summary ---
Author Organization Healthcare Address [address] [place] [address] Care Team Providers Care Internet Media Planner Name Role Phone Pcp, No Primary Care Provider Unavailabl e Efrain Sarah MD Unavailable [phone] Aris Lynch MD Unavailable [phone] Pcp, No Primary Care Provider Unavailabl e Drew Howell MD Primary Care Provider [phone] Anjelica Keys MD Unavailable [phone] Toñito Huerta MD Unavailable [phone] Encounter Details Date Type Department Care Team (Late st Contact Info) Description 11/24/2023 Orders Only External Location [address] [place] [address] Camryn Meadows, DO [address] [place] [address] Social History Tobacco Use Types [...] Info) Description 06/05/2025 12:30 PM EDT Consult [facility] [address], [address] [place] [address] Marta Verma MD [address] [place] [address] documented as of this encounter [...] on filedocumented in this encounter Care Teams Internet Media Planner Relationship Specialty Start Date End Date Pcp, No [address] [place] [address] PCP - General 05/01/21 12/07/23 Pcp, No [address] [place] [address] PCP - General Family Medicine 12/08/23 12/22/23 Drew Howell MD 430 [facility] [address] [place] [address] PCP - General 12/23/23 Efrain Sarah MD [address] [place] [address] 12/02/23 Aris Lynch MD 800 [facility] Cancer [address] [address] Surgeon Otolaryngology 12/02/23 Anjelica Keys MD 800 [facility] [address] [place] [phone] Consulting Physician Medical Oncology 01/13/24 01/17/24 Toñito Huerta MD [address] [phone] Consulting Physician Medical Oncology 01/18/24 documented as of this encounter
--- OUTSIDE RECORDS SUMMARY | 2025-05-31 08:46 | XMS_ITS | Clinical Summary ---
Author Organization [facility] Address [address] [place] [address] Care Team Providers Care Attendance Clerk Name Role Phone Efrain Sarah MD Unavailable [phone] Aris Lynch MD Unavailable [phone] Drew Howell MD Primary Care Provider [phone] Toñito Huerta MD Unavailable [phone] Allergies Active Allergy Reactions Criticality Noted [...] 03/05/2025 Orders Only External Location [address] [place] [address] Provider, External from Last 3 Months Immunizations [...] Date Smoking Tobacco: Every Day Cigarettes 1 71.6 Started: 1952 Smokeless Tobacco: Never Tobacco Cessation:Ready [...] Info) Description 06/05/2025 12:30 PM EDT Consult [facility] General Surgery [address] [place] [address] Marta Verma MD [address] [place] [phone] Health Maintenance Due Date Last Done Comments [facility]-Depression Screening 1945 [facility]-Hepatitis C Screening 1945 [facility]-Medicare Annual Wellness (AWV) 1945 [facility]-Infant/Child/Adol SDOH Screenings 1945 [facility]- SDOH Screenings 1964 [facility]-Adult SDOH Screenings 1964 [facility]-DTaP,Tdap,and Td Vaccines (1 - Tdap) 1965 [facility]-Zoster Vaccines (1 of 2) 1965 [facility]-Pneumococcal Vaccine: 50+ Years (3 of 3 - PCV) 11/01/2014 11/01/2013, 11/01/2012 [id number] Vaccine (2 - Chyna risk series) 07/16/2021 [...] Recently Relevant to Health Maintenance Insurance AETNA [facility] MEDICAID [facility] MEDICARE Care Teams Attendance Clerk Relationship Specialty Start Date End Date Drew Howell MD [address] [place] [address] [address] [place] [address] PCP - General 12/23/23 Efrain Sarah MD [address] [place] [address] 12/02/23 Aris Lynch MD 800 [facility] Cancer [address] [address] Surgeon Otolaryngology 12/02/23 Toñito Huerta MD [address] [place] [phone] Consulting Physician Medical Oncology 01/18/24
--- OUTSIDE RECORDS SUMMARY | 2025-05-31 08:46 | XMS_ITS | Referral Summary ---
Author Organization [facility] [employer] ([place], [place], [place], [place]) Address [address] [place] [address] Care Team Providers Care Bias Cutting Machine Operator Vertical Name Role Phone Unavailable Primary Care Provider [...] Date Luis rded Speak language other than Bengali at home Not on file 12/01/2023 Want [...] on file Medical Devices Implanted Type Area Scrub Wheel Operator Device Identifier Shelf Expiration Date Model / Serial / Lot Pacemakers Pacemakers Insurance DUAL COMPLETE MCR ADV AETNA [facility] [place]
--- OUTSIDE RECORDS SUMMARY | 2025-05-31 08:46 | XMS_ITS | Encounter Summary ---
Author Organization Healthcare Address [address] [place] [address] Care Team Providers Care Cat Driver Name Role Phone Efrain Sarah MD Unavailable [phone] Aris Lynch MD Unavailable [phone] Drew Howell MD Primary Care Provider [phone] Toñito Huerta MD Unavailable [phone] Encounter Details Date Type Department Care Team (Late Contact Info) Description 03/05/2025 Orders Only External Location [address] [place] [address] Provider, External Social History Tobacco Use Types Packs/Day Years Used Date Smoking Tobacco: Every Day Cigarettes 1 71.6 Started: 1952 Smokeless Tobacco: Never Comments:Trying to [...] Info) Description 06/05/2025 12:30 PM EDT Consult [facility] [address] [place] [address] Marta Verma MD [address] [place] [address] documented as of this encounter Procedures Procedure [...] documented as of this encounter Care Teams Cat Driver Relationship Specialty Start Date End Date Drew Howell MD [address] [place] [address] [address] [place] [address] PCP - General 12/23/23 Efrain Sarah MD [address] [place] [address] 12/02/23 Aris Lynch MD [address] [place] [address] [address] Surgeon Otolaryngology 12/02/23 Toñito Huerta MD [address] [place] [phone] Consulting Physician Medical Oncology 01/18/24 documented as of this encounter
--- OUTSIDE RECORDS SUMMARY | 2025-05-31 08:46 | XMS_ITS | Clinical Summary ---
Author Organization [employer] ([place], [place], [place], [place]) Address [address] [place] [address] Care Team Providers Care Manager Reading Name Role Phone Unavailable Primary Care Provider [...] Date Luis rded Speak language other than Armenian at home Not on file 12/01/2023 Want [...] (#1) 2025 Medical Devices Implanted Type Area Hardware Manager Device Identifier Shelf Expiration Date Model / Serial / Lot Pacemakers Pacemakers Insurance DUAL COMPLETE MCR ADV AETNA [facility]
--- OUTSIDE RECORDS SUMMARY | 2025-05-31 08:46 | XMS_ITS | Encounter Summary ---
Author Organization Healthcare Address [address] [place] [address] Care Team Providers Care Assistant Account Manager Name Role Phone Efrain Sarah MD Unavailable [phone] Aris Lynch MD Unavailable [phone] Drew Howell MD Primary Care Provider [phone] Toñito Huerta MD Unavailable [phone] Encounter Details Date Type Department Care Team (Late Contact Info) Description 02/21/2024 Lab Requisition [facility] [address] [place] [address] Drea Loera MD [address] [place] [address] Malignant neoplasm of larynx, unspecified (CMS/HCC) Social History Tobacco Use Types Packs/Day Years Used Date Smoking Tobacco: Every Day Cigarettes 1 71.6 Started: 4 Smokeless Tobacco: Never Comments:Trying to [...] Info) Description 06/05/2025 12:30 PM EDT Consult [facility] General Surgery [address] [place] [address] Marta Verma MD [address] [place] [address] documented as of this encounter Procedures Procedure Name Priority Date/Time Associated Diagnosis Comments AP MISCELLANEOUS LAB TEST (SO) Routine 02/21/2024 12:00 AM EDT Malignant neoplasm of larynx, unspecified (CMS/HCC) documented in this encounter Results * - AP Miscellaneous Test (02/21/2024 12:00 AM EDT) Test name xT Panel, PDL1-Tempu s 03/08/2024 1:03 PM EDT [facility] Comment:[id number] Test Result see scan 03/08/2024 1:03 PM EDT [facility] See Scanned Result 03/08/2024 1:03 PM EDT [facility] Tissue 02/21/2024 02/21/2024 9:5 3 AM EDT us Drea Loera MD LAB REF LAB BLOOD AND FLUID OR D Final Result [facility] [address] [place] [address] documented in this encounter Visit Diagnoses Diagnosis Malignant neoplasm of larynx, unspecified (CMS/HCC) documented in this encounter Additional Health Concerns Assessment Noted Time A fall risk assessment has been complete d for the patient 01/19/2024 10:49 AM EDT A Body Mass Index follow-up plan has been documented for the patient 01/01/2024 10:12 AM EST documented as of this encounter Care Teams Assistant Account Manager Relationship Specialty Start Date End Date Derw Howell MD [address] [place] [address] [address] [place] [address] PCP - General 12/23/23 Efrain Sarah MD [facility] [place] [address] 12/02/23 Aris Lynch MD 800 [facility] [address] [phone] Surgeon Otolaryngology 12/02/23 Toñito Huerta MD [address] [phone] Consulting Physician Medical Oncology 01/18/24 documented as of this encounter
[2025-05-31 09:10] LABS: Hematocrit 41.1 % (42.0-52.0); Hemoglobin 13.6 g/dL (14.1-18.0); Immature Granulocytes % 0.3 %; Mean Corpuscular HGB Conc 33.1 g/dL (31.8-35.4); Mean Corpuscular Hemoglobin 31.0 pg (27.0-31.2); Mean Corpuscular Volume 93.6 fl (80-94); Nucleated Red Blood Cells % 0 %; Platelet Count 158 K/mm3 (142-424); Red Blood Count 4.39 M/mm3 (4.60-6.20); Red Cell Distribution Width-SD 48.8 fL; White Blood Count 6.5 K/mm3 (4.8-10.8)
[2025-05-31 09:30] LABS: Alanine Aminotransferase 16 U/L (12-78); Albumin Level 4.2 g/dl (3.5-5.0); Albumin/Globulin Ratio 1.6 (1.1-1.8); Alkaline Phosphatase 127 U/L (38-126); Anion Gap 10.9 mEq/L (5-15); Aspartate Amino Transferase 23 U/L (17-59); Bilirubin,Total 0.4 mg/dl (0.2-1.3); Blood Urea Nitrogen 13 mg/dl (9-20); Calcium 9.5 mg/dl (8.4-10.2); Carbon Dioxide 29 mmol/L (22.0-30.0); Chloride 104 mmol/L (98-107); Creatinine,Serum 0.80 mg/dl (0.66-1.25); Estimated Glomerular Filt Rate 93 ml/min (>60); GFR (African American) 113 ML/MIN (>60); Globulin 2.7 g/dL (1.3-3.2); Glucose 112 mg/dl (74-100); Potassium 3.9 mmoL/L (3.5-5.1); Sodium 140 mmol/L (136-145); Total Protein,Serum 6.9 g/dl (6.3-8.2)
[2025-05-31] MEDS: SODIUM CHLORIDE 0.9% 10ML FLUSH SYRINGE 10 ML IV (09:41)
[2025-05-31 09:54] VITALS: BP 131/73; PULSE 71; RESP 20; TEMP 36.7; O2SAT 100
[2025-05-31] MEDS: PEMBROLIZUMAB 200 MG in 0.9 % SODIUM CHLORIDE 50 ML 116 MG IV (09:54)
[2025-05-31 10:01] LABS: Thyroid Stimulating Hormone 1.12 uIU/mL (0.465-4.68)
[2025-05-31 10:19] VITALS: BP 112/53; PULSE 71; RESP 20; O2SAT 99
[2025-05-31 10:40] VITALS: BP 112/84; PULSE 73; RESP 20; O2SAT 100
== END 2025-05-31 10:40 | disposition home or self-care (01) ==
LOC: INF 08:45
PROVIDERS: PCP Family Medicine; Visit Provider Internal Medicine Medical Oncology
DX: Z51.11 Encounter for antineoplastic chemotherapy (principal); C76.0 Malignant neoplasm of head, face and neck
CPT/HCPCS: 80053; 82024; 82533; 84443; 85025; 96413; J9271

== ENCOUNTER 2025-06-20 08:05 | Outpatient (CLI) | payer MEDICARE, OTHER, SELFPAY ==
[2025-06-20 08:31] LABS: Hematocrit 41.8 % (42.0-52.0); Hemoglobin 13.9 g/dL (14.1-18.0); Immature Granulocytes % 0.3 %; Mean Corpuscular HGB Conc 33.3 g/dL (31.8-35.4); Mean Corpuscular Hemoglobin 31.2 pg (27.0-31.2); Mean Corpuscular Volume 93.9 fl (80-94); Nucleated Red Blood Cells % 0 %; Platelet Count 178 K/mm3 (142-424); Red Blood Count 4.45 M/mm3 (4.60-6.20); Red Cell Distribution Width-SD 46.4 fL; White Blood Count 6.8 K/mm3 (4.8-10.8)
[2025-06-20 08:42] LABS: Albumin Level 4.0 g/dl (3.5-5.0); Chloride 104 mmol/L (98-107)
[2025-06-20 08:43] LABS: Potassium 4.3 mmoL/L (3.5-5.1); Sodium 139 mmol/L (136-145)
[2025-06-20 08:45] LABS: Alanine Aminotransferase 13 U/L (12-78); Anion Gap 10.3 mEq/L (5-15); Aspartate Amino Transferase 20 U/L (17-59); Blood Urea Nitrogen 10 mg/dl (9-20); Carbon Dioxide 29 mmol/L (22.0-30.0); Creatinine,Serum 0.70 mg/dl (0.66-1.25); Estimated Glomerular Filt Rate 109 ml/min (>60); GFR (African American) 132 ML/MIN (>60)
[2025-06-20 08:46] LABS: Albumin/Globulin Ratio 1.4 (1.1-1.8); Alkaline Phosphatase 150 U/L (38-126); Bilirubin,Total 0.4 mg/dl (0.2-1.3); Calcium 9.0 mg/dl (8.4-10.2); Globulin 2.9 g/dL (1.3-3.2); Glucose 86 mg/dl (74-100); Total Protein,Serum 6.9 g/dl (6.3-8.2)
[2025-06-20 09:17] LABS: Thyroid Stimulating Hormone 1.54 uIU/mL (0.465-4.68)
[2025-06-20] MEDS: PEMBROLIZUMAB 200 MG in 0.9 % SODIUM CHLORIDE 50 ML 116 MG IV (11:11)
[2025-06-20 11:17] VITALS: BP 101/59; PULSE 70; RESP 19; O2SAT 95
[2025-06-20 12:00] VITALS: BP 118/70; PULSE 71; RESP 18; O2SAT 99
== END 2025-06-20 12:00 | disposition home or self-care (01) ==
LOC: INF 08:07
PROVIDERS: PCP Family Medicine; Visit Provider Internal Medicine Medical Oncology
DX: N39.0 Urinary tract infection, site not specified (principal); Z51.11 Encounter for antineoplastic chemotherapy; C76.0 Malignant neoplasm of head, face and neck
CPT/HCPCS: 80053; 82024; 82533; 84443; 85025; 96413; J9271

== ENCOUNTER 2025-07-03 09:40 | Outpatient (CLI) | payer MEDICARE, OTHER, SELFPAY ==
--- NOTE | 2025-07-03 09:44 | XR_ITS ---
FINAL REPORT TECHNIQUE: 5 views CLINICAL HISTORY: LBP COMPARISON: None FINDINGS: AP, oblique and lateral views of the lumbar spine were obtained. There is no prior exam for comparison. There is no acute fracture. Dextroscoliosis is present, measuring 10 degrees. Vertebral body height is preserved. There is moderate disc space narrowing at the L1-2 and L4-5 levels. Moderate facet sclerosis is present in the lower lumbar spine. No acute paraspinal abnormality. IMPRESSION: Degenerative changes are present, without acute bony abnormality identified. Reviewed, Interpreted and Dictated by Chidi Dejesus MD Transcribed by Sagrario Navarro Authenticated and [facility]
--- OUTSIDE RECORDS SUMMARY | 2025-07-03 10:05 | XMS_ITS | Encounter Summary ---
Author Organization Healthcare Address [address] [place] [address] Care Team Providers Care Marine Underwriter Name Role Phone Pcp, No Primary Care Provider Unavailbecca e Efrain Sarah MD Unavailable [phone] Aris Lynch MD Unavailable [phone] Pcp, No Primary Care Provider Unavailabl e Drew Howell MD Primary Care Provider [phone] Anjelica Keys MD Unavailable [phone] Toñito Huerta MD Unavailable [phone] Encounter Details Date Type Department Care Team (Late st Contact Info) Description 11/24/2023 Orders Only External Location [address] [place] [address] Camryn Meadows, DO [address] [place] [address] Social History Tobacco Use Types Packs/Day Years [...] Tomogra phy 11/24/2023 3:11 PM EST Camryn Su Meadows IMG CT PROCEDURES Final Result documented in this encounter Visit Diagnoses Not on filedocumented in this encounter Care Teams Marine Underwriter Relationship Specialty Start Date End Date Pcp, No [address] [place] [address] PCP - General 05/01/21 12/07/23 Pcp, No [address] [place] [address] PCP - General Family Medicine 12/08/23 12/22/23 Drew Howell MD 430 [facility] [address] [place] [address] PCP - General 12/23/23 Efrain Sarah MD [address] [place] [address] 12/02/23 Aris Lynch MD 800 [facility] [address] [place] [address] Surgeon Otolaryngology 12/02/23 Anjelica Keys MD 800 [facility] [address] [address] Consulting Physician Medical Oncology 01/13/24 01/17/24 Toñito Huerta MD [address] [place] [phone] Consulting Physician Medical Oncology 01/18/24 documented as of this encounter
--- OUTSIDE RECORDS SUMMARY | 2025-07-03 10:05 | XMS_ITS | Encounter Summary ---
Author Organization Healthcare Address [address] [place] [address] Care Team Providers Care Skein Bleacher Name Role Phone Efrain Sarah MD Unavailable [phone] Aris Lynch MD Unavailable [phone] Drew Howell MD Primary Care Provider [phone] Toñito Huerta MD Unavailable [phone] Encounter Details Date Type Department Care Team (Late st Contact Info) Description 03/05/2025 Orders Only External Location 800 [place] [address] Provider, External Social History Tobacco Use Types Packs/Day Years Used Date Smoking Tobacco: Every Day Cigarettes 1 71.7 Started: 1952 Smokeless Tobacco: Never Comments:Trying to [...] documented as of this encounter Care Teams Skein Bleacher Relationship Specialty Start Date End Date Drew Howell MD 430 [facility] [address]1 [address] [place] [address] PCP - General 12/23/23 Efrain Sarah MD [address] [place] [address] 12/02/23 Aris Lynch MD 800 [facility] Cancer [address] [phone] Surgeon Otolaryngology 12/02/23 Toñito Huerta MD [address] [place] [phone] Consulting Physician Medical Oncology 01/18/24 documented as of this encounter
--- OUTSIDE RECORDS SUMMARY | 2025-07-03 10:05 | XMS_ITS | Clinical Summary ---
Author Organization [facility] Address [address] [place] [address] Care Team Providers Care Automotive Refinisher Name Role Phone Efrain Sarah MD Unavailable [phone] Aris Lynch MD Unavailable [phone] Drew Howell MD Primary Care Provider [phone] Toñito Huerta MD Unavailable [phone] Allergies Active Allergy Reactions Criticality Noted [...] JOSE(cT4a, cN1, cM0) - Signed by Aris Lycnh MD on 12/08/2023 Resolved Problems Problem Noted Date Diagnosed Date Resolved Date Malignant neoplasm of larynx 12/29/2023 01/04/2024 Immunizations Immunization Administration Dates Next Due Influenza, [...] 1 71.7 Started: 1952 Smokeless Tobacco: Never Tobacco Cessation:Ready [...] Screening 1945 [facility]-Medicare Annual Wellness (AWV) 1945 [facility]-/Child/Adol SDOH Screenings 1945 [facility]- SDOH Screenings 1964 [facility]-Adult SDOH Screenings 1964 [facility]-DTaP,Tdap,and Td Vaccines (1 - Tdap) 1965 [facility]-Zoster Vaccines (1 of 2) 1965 [facility]-Pneumococcal Vaccine: 50+ Years (3 of 3 - PCV) 11/01/2014 11/01/2013, 11/01/2012 [id number] Vaccine (2 - Chyna risk series) 07/16/2021 [...] Most Recently Relevant to Health Maintenance Insurance [facility] MEDICARE Care Teams Automotive Refinisher Relationship Specialty Start Date End Date Drew Howell MD 430 [facility] [address] [place] [address] PCP - General 12/23/23 Efrain Sarah MD [address] [place] [address] 12/02/23 Aris Lynch MD [address] [phone] Surgeon Otolaryngology 12/02/23 Toñito Huerta MD [address] [place] [phone] Consulting Physician Medical Oncology 01/18/24
--- OUTSIDE RECORDS SUMMARY | 2025-07-03 10:06 | XMS_ITS | Encounter Summary ---
Author Organization [facility] Address [address] [place] [id number] Care Team Providers Care Pathology Technologist Name Role Phone Efrain Sarah MD Unavailable [phone] Aris Lynch MD Unavailable [phone] Drew Howell MD Primary Care Provider [phone] Toñito Huerta MD Unavailable [phone] Encounter Details Date Type Department Care Team (Late st Contact Info) Description 02/21/2024 Lab Requisition [facility] [address] [place] [address] Drea Loera MD [address] [place] [address] Malignant neoplasm of larynx, unspecified [...] 12:00 AM EDT) Test name xT Panel, NGA-Karlos s 03/08/2024 1:03 PM EDT [facility] Comment:[id number] Test Result see scan 03/08/2024 1:03 PM EDT [facility] See Scanned Result 03/08/2024 1:03 PM EDT [facility] Tissue 02/21/2024 02/21/2024 9:5 3 AM EDT us Drea Loera MD LAB REF LAB BLOOD AND FLUID OR D Final Result [facility] [address] [place] [address] documented in this encounter Visit Diagnoses Diagnosis Malignant neoplasm of larynx, unspecified (CMS/HCC) documented in this encounter Additional Health Concerns Assessment Noted Time A fall risk assessment has been complete d for the patient 01/19/2024 10:49 AM EDT A Body Mass Index follow-up plan has been documented for the patient 01/01/2024 10:12 AM EST documented as of this encounter Care Teams Pathology Technologist Relationship Specialty Start Date End Date Drew Howell MD [address] [place] [address] [address] [place] [address] PCP - General 12/23/23 Efrain Sarah MD [address] [place] [address] [place] [address] 12/02/23 Aris Lynch MD 800 [facility] [address] [place] [phone] Surgeon Otolaryngology 12/02/23 Toñito Huerta MD [address] [place] [phone] Consulting Physician Medical Oncology 01/18/24 documented as of this encounter
--- OUTSIDE RECORDS SUMMARY | 2025-07-03 10:06 | XMS_ITS | Clinical Summary ---
Author Organization [employer] ([place], [place], [place], [place]) Address [address] [place] [address] Care Team Providers Care Dough Cutter Name Role Phone Unavailable Primary Care Provider [...] Date Luis rded Speak language other than Divehi at home Not on file 12/01/2023 Want [...] (#1) 2025 Medical Devices Implanted Type Area Copyist Device Identifier Shelf Expiration Date Model / Serial / Lot Pacemakers Pacemakers Insurance DUAL COMPLETE MCR ADV AETNA [facility]
--- OUTSIDE RECORDS SUMMARY | 2025-07-03 10:06 | XMS_ITS | Referral Summary ---
Author Organization [employer] ([place], [place], [place], [place]) Address [address] [place] [address] Care Team Providers Care Product Line Manager Name Role Phone Unavailable Primary Care Provider [...] Date Luis rded Speak language other than Macedonian at home Not on file 12/01/2023 Want [...] on file Medical Devices Implanted Type Area Research Instrumentation Technician Device Identifier Shelf Expiration Date Model / Serial / Lot Pacemakers Pacemakers Insurance DUAL COMPLETE MCR ADV AETNA [facility] [place]
== END 2025-07-03 23:59 | disposition home or self-care (01) ==
LOC: RAD 09:41
PROVIDERS: PCP Family Medicine; Visit Provider Family Medicine
DX: M47.816 Spondylosis without myelopathy or radiculopathy, lumbar region (principal)
CPT/HCPCS: 72110

== ENCOUNTER 2025-07-05 07:46 | Outpatient (CLI) | payer MEDICARE, OTHER, SELFPAY ==
--- OUTSIDE RECORDS SUMMARY | 2025-07-05 07:48 | XMS_ITS | Clinical Summary ---
Author Organization [facility] Address [address] [place] [address] Care Team Providers Care Filling Machine Tender Name Role Phone Efrain Sarah MD Unavailable [phone] Aris Lynch MD Unavailable [phone] Drew Howell MD Primary Care Provider [phone] Toñito Huerta MD Unavailable [phone] Allergies Active Allergy Reactions Criticality Noted [...] of 3 - PCV) 11/01/2014 11/01/2013, 11/01/2012 [id number] Vaccine (2 - Chyna risk series) 07/16/2021 [...] Most Recently Relevant to Health Maintenance Insurance [facility] MEDICARE Care Teams Filling Machine Tender Relationship Specialty Start Date End Date Drew Howell MD 430 [facility] [address]1 [address] [place] [address] PCP - General 12/23/23 Efrain Sarah MD [address] [place] [address] 12/02/23 Aris Lynch MD [address] [phone] Surgeon Otolaryngology 12/02/23 Toñito Huerta MD [address] [place] [phone] Consulting Physician Medical Oncology 01/18/24
--- OUTSIDE RECORDS SUMMARY | 2025-07-05 07:48 | XMS_ITS | Encounter Summary ---
Author Organization Healthcare Address [address] [place] [address] Care Team Providers Care Veterinary Surgery Technician Name Role Phone Pcp, No Primary Care Provider Unavailbecca e Efrain Sarah MD Unavailable [phone] Aris Lynch MD Unavailable [phone] Pcp, No Primary Care Provider Unavailabl e Drew Howell MD Primary Care Provider [phone] Anjelica Keys MD Unavailable [phone] Toñito Huerta MD Unavailable [phone] Encounter Details Date Type Department Care Team (Late st Contact Info) Description 11/24/2023 Orders Only External Location [address] [place] [address] Camryn Meadows, DO [address] [place] [address] Social History Tobacco Use Types Packs/Day Years [...] on filedocumented in this encounter Care Teams Veterinary Surgery Technician Relationship Specialty Start Date End Date Pcp, No [address] [place] [address] PCP - General 05/01/21 12/07/23 Pcp, No [address] [place] [address] PCP - General Family Medicine 12/08/23 12/22/23 Drew Howell MD 430 [facility] #1 #1 [place] [address] PCP - General 12/23/23 Efrain Sarah MD [address] [place] [address] 12/02/23 Aris Lynch MD 800 [facility] [address] [place] [phone] Surgeon Otolaryngology 12/02/23 Anjelica Keys MD 800 [facility] [address] [phone] Consulting Physician Medical Oncology 01/13/24 01/17/24 Toñito Huerta MD [address] [place] [phone] Consulting Physician Medical Oncology 01/18/24 documented as of this encounter
--- OUTSIDE RECORDS SUMMARY | 2025-07-05 07:48 | XMS_ITS | Encounter Summary ---
Author Organization Healthcare Address [address] [place] [address] Care Team Providers Care Foot Doctor Name Role Phone Efrain Sarah MD Unavailable [phone] Aris Lynch MD Unavailable [phone] Drew Howell MD Primary Care Provider [phone] Toñito Huerta MD Unavailable [phone] Encounter Details Date Type Department Care Team (Late st Contact Info) Description 03/05/2025 Orders Only External Location 800 [place] [address] Provider, External Social History Tobacco Use Types [...] documented as of this encounter Care Teams Foot Doctor Relationship Specialty Start Date End Date Drew Howell MD 430 [facility] #1 #1 [place] [address] PCP - General 12/23/23 Efrain Sarah MD [address] [place] [address] 12/02/23 Aris Lynch MD 800 [facility] [address] [phone] Surgeon Otolaryngology 12/02/23 Toñito Huerta MD [address] [place] [phone] Consulting Physician Medical Oncology 01/18/24 documented as of this encounter
--- OUTSIDE RECORDS SUMMARY | 2025-07-05 07:49 | XMS_ITS | Clinical Summary ---
Author Organization [email or web address] ([place], [place], [place], [place]) Address [address] [place] [address] Care Team Providers Care Community Product Specialist Name Role Phone Unavailable Primary Care [...] Date Luis rded Speak language other than Greek at home Not on file 12/01/2023 Want [...] 1-dose 75+ series) 2021 Hemoglobin A1C 12/01/2023 Falls Risk Screening 11/01/2024 Tobacco Cessation Counseling and Screening (12+) 12/01/2024 12/01/2023 COVID-19 VACCINE (2 - 2024- season) 2025 Influenza Vaccine (#1) 2025 Medical Devices Implanted Type Area Neuropsychology Medical Consultant Device Identifier Shelf Expiration Date Model / Serial / Lot Pacemakers Pacemakers Insurance DUAL COMPLETE MCR ADV AETNA [facility]
--- OUTSIDE RECORDS SUMMARY | 2025-07-05 07:49 | XMS_ITS | Referral Summary ---
Author Organization [employer] ([place], [place], [place], [place]) Address [address] [place] [address] Care Team Providers Care Hand Cigar Making Supervisor Name Role Phone Unavailable Primary Care [...] Date Luis rded Speak language other than Ukrainian at home Not on file 12/01/2023 Want [...] on file Medical Devices Implanted Type Area E Commerce Retailer Device Identifier Shelf Expiration Date Model / Serial / Lot Pacemakers Pacemakers Insurance DUAL COMPLETE MCR ADV AETNA [facility] [place]
--- OUTSIDE RECORDS SUMMARY | 2025-07-05 07:49 | XMS_ITS | Encounter Summary ---
Author Organization [facility] Address [address] [id number] Care Team Providers Care Hearing Therapy Teacher Name Role Phone Efrain Sarah MD Unavailable [phone] Aris Lynch MD Unavailable [phone] Drew Howell MD Primary Care Provider [phone] Toñito Huerta MD Unavailable [phone] Encounter Details Date Type Department Care Team (Late st Contact Info) Description 02/21/2024 Lab Requisition [facility] [address] [place] [address] Drea Loera MD [address] [place] [address] Malignant neoplasm of larynx, unspecified [...] s 03/08/2024 1:03 PM EDT HEALTHCARE LAB Comment:[id number] A2 Test Result see scan 03/08/2024 1:03 PM EDT [facility] See Scanned Result 03/08/2024 1:[address] [facility] Tissue 02/21/2024 02/21/2024 9:5 3 AM EDT us Drea Loera MD LAB REF LAB BLOOD AND FLUID OR D Final Result [facility] [address] [place] [address] documented in this encounter Visit Diagnoses Diagnosis Malignant neoplasm of larynx, unspecified (CMS/HCC) documented in this encounter Additional Health Concerns Assessment Noted Time A fall risk assessment has been complete d for the patient 01/19/2024 10:49 AM EDT A Body Mass Index follow-up plan has been documented for the patient 01/01/2024 10:12 AM EST documented as of this encounter Care Teams Hearing Therapy Teacher Relationship Specialty Start Date End Date Drew Howell MD [address] [place] [address] [address]1 [address]1 [place] [address] PCP - General 12/23/23 Efrain Sarah MD [address] [place] [address] [address] [place] [address] 12/02/23 Aris Lynch MD 800 [facility] [address] [place] [phone] Surgeon Otolaryngology 12/02/23 Toñito Huerta MD [address] [place] [phone] Consulting Physician Medical Oncology 01/18/24 documented as of this encounter
--- NOTE | 2025-07-05 08:00 | CT_ITS ---
FINAL REPORT TECHNIQUE: After the administration of intravenous contrast, axial images were obtained through the abdomen and pelvis by computed tomography. The study was performed with techniques to keep radiation dose as low as reasonably achievable, (ALARA). Individual dose reduction techniques using automated exposure control or adjustment of mA and/or kV according to the patient's size were employed. CLINICAL HISTORY: EVALUATION OF TREATMENT. longstanding history of metastatic squamous cell carcinoma of the head and neck. repeat imaging of the neck/chest/abdomen/pelvis to check for continued efficacy COMPARISON: 12/25/2024 and 2020 FINDINGS: Abdomen: The lung bases are clear. The liver parenchyma is homogeneous. The gallbladder is present. The spleen appears unremarkable. There is fatty infiltration of the pancreas. A left adrenal mass measuring 3.2 x 2.9 cm is indeterminate but stable to 2020. The kidneys are unremarkable. There is an abdominal aortic aneurysm measuring 2.8 x 2.7 cm. Pelvis: The appendix is not identified. The urinary bladder is incompletely distended. There is a large right inguinal hernia containing loops of large and small bowel. IMPRESSION: Stable left adrenal mass to 2020. Given stability over time, this is favored to be benign. Large right inguinal hernia. Stable abdominal aortic aneurysm. Reviewed, Interpreted and Dictated by Chidi Dejesus MD Transcribed by Dayanna Pineda Authenticated and [facility]
--- NOTE | 2025-07-05 08:00 | CT_ITS ---
FINAL REPORT TECHNIQUE: Routine axial images were obtained from the lung apices to below the diaphragm following IV contrast administration. Individualized dose reduction techniques using automated exposure control or adjustment of the mA and/or kV according to the patient size were employed. CLINICAL HISTORY: EVALUATION OF TREATMENT. longstanding history of metastatic squamous cell carcinoma of the head and neck. repeat imaging of the neck/chest/abdomen/pelvis to check for continued efficacy COMPARISON: 04/13/2025 FINDINGS: There is streak artifact from left upper anterior chest wall pacemaker. Multiple small mediastinal lymph nodes are present in the right paratracheal and AP window regions. The heart is normal in size. There is no pericardial or pleural effusion. A spiculated mass in the right perihilar region measures 1.5 x 1.0 cm. There are moderate changes of centrilobular emphysema. A noncalcified nodule in the periphery of the left upper lobe measuring 6 mm on image 46 of series 4 similar to the prior study. There is bibasilar scarring. IMPRESSION: Spiculated right perihilar mass, similar to the prior study, highly concerning for neoplasm. Noncalcified nodule in the periphery of the left upper lobe is stable. Advanced changes of centrilobular emphysema. Reviewed, Interpreted and Dictated by Chidi Dejesus MD Transcribed by Dayanna Pineda Authenticated and [facility]
[2025-07-05] MEDS: IOPAMIDOL-370 (76%);100ML BOTTLE 75 ML IV (08:23)
[2025-07-05] MEDS: SODIUM CHLORIDE 0.9% 10ML SYR (RAD ONLY) 10 ML IV (08:23)
--- NOTE | 2025-07-05 08:45 | CT_ITS ---
FINAL REPORT TECHNIQUE: Thin section axial CT images with coronal and sagittal reformats were performed after the administration of IV contrast. This study was performed with techniques to keep radiation doses as low as reasonably achievable (ALARA). Individualized dose reduction techniques using automated exposure control or adjustment of mA and/or kV according to the patient''s size were employed. CLINICAL HISTORY: EVALUATION OF TREATMENT. longstanding history of metastatic squamous cell carcinoma of the head and neck. repeat imaging of the neck/chest/abdomen/pelvis to check for continued efficacy FINDINGS: There are moderate changes of centrilobular emphysema in the upper lobes. There is bilateral apical pleural and parenchymal scarring. There are questionable small pulmonary emboli in the right upper lobe branch vessels well-seen on images 92 through 95 of series 7. The left maxillary sinus is hypoplastic. There is mucoperiosteal thickening in the left maxillary sinus. There are low-attenuation lesions in the parotid glands bilaterally measuring 10 mm on the right and 8 mm on the left. There is a solid somewhat high density lesion in the medial left parotid measuring 1.5 cm best seen on image 35 of series 7 and image 22 of series 607. No significant adenopathy is identified. There are moderate hypertrophic changes of degenerative disc disease at C3-4, C5-6, and C6-7. 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 Apparent small emboli in the right upper lobe pulmonary artery branches. Solid nodule in the medial left parotid. Recommend ultrasound to better characterize. Finding could be benign or malignant neoplasm. Thiago Aguayo, medical imaging technologist was notified of findings on 07/05/2025 at 12:30 PM Reviewed, Interpreted and Dictated by Chidi Dejesus MD Transcribed by Masha Finley Authenticated and [facility]
--- NOTE | 2025-07-05 10:21 | RESP.PFTSS ---
Patient refused 6 minute walk testing. Stated legs were already hurting him.
== END 2025-07-05 23:59 | disposition home or self-care (01) ==
PROVIDERS: PCP Family Medicine; Visit Provider Internal Medicine Medical Oncology
DX: C76.0 Malignant neoplasm of head, face and neck (principal); E27.8 Other specified disorders of adrenal gland; K40.90 Unilateral inguinal hernia, without obstruction or gangrene, not specified as recurrent; I71.40 Abdominal aortic aneurysm, without rupture, unspecified; J43.2 Centrilobular emphysema; I26.99 Other pulmonary embolism without acute cor pulmonale; K11.8 Other diseases of salivary glands; J44.9 Chronic obstructive pulmonary disease, unspecified; R94.2 Abnormal results of pulmonary function studies; R91.8 Other nonspecific abnormal finding of lung field; R91.1 Solitary pulmonary nodule
CPT/HCPCS: 70491; 71260; 74177; 94060; 94726; 94729; Q9967

== ENCOUNTER 2025-07-11 08:51 | Outpatient (CLI) | payer MEDICARE, OTHER, SELFPAY ==
--- OUTSIDE RECORDS SUMMARY | 2025-07-11 09:14 | XMS_ITS | Clinical Summary ---
Author Organization [facility] Address [address] [place] [address] Care Team Providers Care Watch Repair Person Name Role Phone Efrain Sarah MD Unavailable [phone] Aris Lynch MD Unavailable [phone] Drew Howell MD Primary Care Provider [phone] Toñito Huerta MD Unavailable [phone] Allergies Active Allergy Reactions Criticality Noted [...] of 3 - PCV) 11/01/2014 11/01/2013, 11/01/2012 [id number] Vaccine (2 - Chyna risk series) 07/16/2021 [...] Most Recently Relevant to Health Maintenance Insurance [facility] MEDICARE Care Teams Watch Repair Person Relationship Specialty Start Date End Date Drew Howell MD 430 [facility] #1 [address]1 [place] [address] PCP - General 12/23/23 Efrain Sarah MD [address] [place] [address] 12/02/23 Aris Lynch MD [address] [phone] Surgeon Otolaryngology 12/02/23 Toñito Huerta MD [address] [place] [phone] Consulting Physician Medical Oncology 01/18/24
--- OUTSIDE RECORDS SUMMARY | 2025-07-11 09:14 | XMS_ITS | Clinical Summary ---
Author Organization [employer] ([place], [place], [place], [place]) Address [address] [place] [address] Care Team Providers Care Rotary Kiln Operator Name Role Phone Unavailable Primary Care [...] Date Luis rded Speak language other than Latvian at home Not on file 12/01/2023 Want [...] (#1) 2025 Medical Devices Implanted Type Area Unattended Ground Sensor Specialist Device Identifier Shelf Expiration Date Model / Serial / Lot Pacemakers Pacemakers Insurance DUAL COMPLETE MCR ADV AETNA [facility]
--- OUTSIDE RECORDS SUMMARY | 2025-07-11 09:14 | XMS_ITS | Encounter Summary ---
Author Organization Healthcare Address [address] [place] [address] Care Team Providers Care Clinical Interviewer Name Role Phone Efrain Sarah MD Unavailable [phone] Aris Lynch MD Unavailable [phone] Drew Howell MD Primary Care Provider [phone] Toñito Huerta MD Unavailable [phone] Encounter Details Date Type Department Care Team (Late st Contact Info) Description 03/05/2025 Orders Only External Location 800 [place] [address] Provider, External Social History Tobacco Use Types [...] documented as of this encounter Care Teams Clinical Interviewer Relationship Specialty Start Date End Date Drew Howell MD 430 [facility] #1 #1 [place] [address] PCP - General 12/23/23 Efrain Sarah MD [address] [place] [address] 12/02/23 Aris Lynch MD 800 [facility] [address] [phone] Surgeon Otolaryngology 12/02/23 Toñito Huerta MD [address] [place] [phone] Consulting Physician Medical Oncology 01/18/24 documented as of this encounter
--- OUTSIDE RECORDS SUMMARY | 2025-07-11 09:14 | XMS_ITS | Referral Summary ---
Author Organization [employer] ([place], [place], [place], [place]) Address [address] [place] [address] Care Team Providers Care Assistant To The Dean Name Role Phone Unavailable Primary Care Provider [...] on file Medical Devices Implanted Type Area Pet Caretaker Device Identifier Shelf Expiration Date Model / Serial / Lot Pacemakers Pacemakers Insurance DUAL COMPLETE MCR ADV AETNA [facility] [place] [place]
--- OUTSIDE RECORDS SUMMARY | 2025-07-11 09:14 | XMS_ITS | Encounter Summary ---
Author Organization Healthcare Address [address] [place] [address] Care Team Providers Care Jingle Writer Name Role Phone Pcp, No Primary Care Provider Unavailbecca e Efrain Sarah MD Unavailable [phone] Aris Lynch MD Unavailable [phone] Pcp, No Primary Care Provider Unavailabl e Drew Howell MD Primary Care Provider [phone] Anjelica Keys MD Unavailable [phone] Toñito Huerta MD Unavailable [phone] Encounter Details Date Type Department Care Team (Late st Contact Info) Description 11/24/2023 Orders Only External Location 800 [place] [address] Camryn Meadows, DO [address] [place] [address] Social History Tobacco Use Types Packs/Day Years [...] Tomogra phy 11/24/2023 3:11 PM EST Camryn Georges Meadows IMG CT PROCEDURES Final Result documented in this encounter Visit Diagnoses Not on filedocumented in this encounter Care Teams Jingle Writer Relationship Specialty Start Date End Date Pcp, No [address] [place] [address] PCP - General 05/01/21 12/07/23 Pcp, No [address] [place] [address] PCP - General Family Medicine 12/08/23 12/22/23 Drew Howell MD [address] [place] [address] [address]1 [address]1 [place] [address] PCP - General 12/23/23 Efrain Sarah MD [address] [place] [address] 12/02/23 Aris Lynch MD 800 [facility] [address] [place] [phone] Surgeon Otolaryngology 12/02/23 Anjelica Keys MD 800 [facility] [address] [phone] Consulting Physician Medical Oncology 01/13/24 01/17/24 Toñito Huerta MD [address] [place] [phone] Consulting Physician Medical Oncology 01/18/24 documented as of this encounter
--- OUTSIDE RECORDS SUMMARY | 2025-07-11 09:14 | XMS_ITS | Encounter Summary ---
Author Organization [facility] Address [address] [id number] Care Team Providers Care Lead Java Software Engineer Name Role Phone Efrain Sarah MD Unavailable [phone] Aris Lynch MD Unavailable [phone] Drew Howell MD Primary Care Provider [phone] Toñito Huerta MD Unavailable [phone] Encounter Details Date Type Department Care Team (Late st Contact Info) Description 02/21/2024 Lab Requisition [facility] [address] [place] [address] Drea Loera MD [address] [place] [address] Malignant neoplasm of larynx, unspecified [...] s 03/08/2024 1:03 PM EDT HEALTHCARE LAB Comment:[id number] A2 Test Result see scan 03/08/2024 1:03 PM EDT [facility] See Scanned Result 03/08/2024 1:03 PM EDT [facility] Tissue 02/21/2024 02/21/2024 9:5 3 AM EDT us Drea Loera MD LAB REF LAB BLOOD AND FLUID OR D Final Result [facility] [address] [place] [address] documented in this encounter Visit Diagnoses Diagnosis Malignant neoplasm of larynx, unspecified (CMS/HCC) documented in this encounter Additional Health Concerns Assessment Noted Time A fall risk assessment has been complete d for the patient 01/19/2024 10:49 AM EDT A Body Mass Index follow-up plan has been documented for the patient 01/01/2024 10:12 AM EST documented as of this encounter Care Teams Lead Java Software Engineer Relationship Specialty Start Date End Date Drew Howell MD [address] [place] [address] #1 [address]1 [place] [address] PCP - General 12/23/23 Efrain Sarah MD [facility] [place] [address] 12/02/23 Aris Lynch MD 800 [facility] [address] [place] [phone] Surgeon Otolaryngology 12/02/23 Toñito Huerta MD [address] [place] [phone] Consulting Physician Medical Oncology 01/18/24 documented as of this encounter
[2025-07-11 09:18] LABS: Hematocrit 43.3 % (42.0-52.0); Hemoglobin 14.6 g/dL (14.1-18.0); Immature Granulocytes % 0.3 %; Mean Corpuscular HGB Conc 33.7 g/dL (31.8-35.4); Mean Corpuscular Hemoglobin 30.9 pg (27.0-31.2); Mean Corpuscular Volume 91.5 fl (80-94); Nucleated Red Blood Cells % 0 %; Platelet Count 189 K/mm3 (142-424); Red Blood Count 4.73 M/mm3 (4.60-6.20); Red Cell Distribution Width-SD 44.9 fL; White Blood Count 7.5 K/mm3 (4.8-10.8)
[2025-07-11 09:30] LABS: Alanine Aminotransferase 13 U/L (12-78); Albumin Level 4.1 g/dl (3.5-5.0); Albumin/Globulin Ratio 1.2 (1.1-1.8); Alkaline Phosphatase 116 U/L (38-126); Anion Gap 13.1 mEq/L (5-15); Aspartate Amino Transferase 23 U/L (17-59); Bilirubin,Total 0.6 mg/dl (0.2-1.3); Blood Urea Nitrogen 14 mg/dl (9-20); Calcium 9.8 mg/dl (8.4-10.2); Carbon Dioxide 29 mmol/L (22.0-30.0); Chloride 101 mmol/L (98-107); Creatinine,Serum 0.80 mg/dl (0.66-1.25); Estimated Glomerular Filt Rate 93 ml/min (>60); GFR (African American) 113 ML/MIN (>60); Globulin 3.3 g/dL (1.3-3.2); Glucose 108 mg/dl (74-100); Potassium 4.1 mmoL/L (3.5-5.1); Sodium 139 mmol/L (136-145); Total Protein,Serum 7.4 g/dl (6.3-8.2)
[2025-07-11 10:01] LABS: Thyroid Stimulating Hormone 2.83 uIU/mL (0.465-4.68)
[2025-07-11] MEDS: SODIUM CHLORIDE 0.9% 10ML FLUSH SYRINGE 10 ML IV (10:29)
[2025-07-11 10:30] VITALS: BP 112/65; PULSE 71; RESP 18; TEMP 36.2; O2SAT 98
[2025-07-11] MEDS: PEMBROLIZUMAB 200 MG in 0.9 % SODIUM CHLORIDE 50 ML 116 MG IV (10:30)
[2025-07-11 11:10] VITALS: BP 112/85; PULSE 79; RESP 18; O2SAT 98
== END 2025-07-11 11:10 | disposition home or self-care (01) ==
LOC: INF 08:52
PROVIDERS: PCP Family Medicine; Visit Provider Internal Medicine Medical Oncology
DX: C76.0 Malignant neoplasm of head, face and neck (principal); Z51.11 Encounter for antineoplastic chemotherapy
CPT/HCPCS: 80053; 82024; 82533; 84443; 85025; 96413; 97803; J9271

== ENCOUNTER 2025-08-01 08:58 | Outpatient (CLI) | payer MEDICARE, OTHER, SELFPAY ==
[2025-08-01 09:00] VITALS: BMI 25.1
--- OUTSIDE RECORDS SUMMARY | 2025-08-01 09:19 | XMS_ITS | Encounter Summary ---
Author Organization Healthcare Address [address] [place] [address] Care Team Providers Care Cafeteria Operator Name Role Phone Efrain Sarah MD Unavailable [phone] Aris Lynch MD Unavailable [phone] Drew Howell MD Primary Care Provider [phone] Toñito Huerta MD Unavailable [phone] Encounter Details Date Type Department Care Team (Late st Contact Info) Description 03/05/2025 Orders Only External Location 800 [place] [address] Provider, External Social History Tobacco Use Types [...] documented as of this encounter Care Teams Cafeteria Operator Relationship Specialty Start Date End Date Drew Howell MD 430 [facility] #1 [address]1 [place] [address] PCP - General 12/23/23 Efrain Sarah MD [address] [place] [address] 12/02/23 Aris Lynch MD 800 [facility] [address] [phone] Surgeon Otolaryngology 12/02/23 Toñito Huerta MD [address] [place] [phone] Consulting Physician Medical Oncology 01/18/24 documented as of this encounter
--- OUTSIDE RECORDS SUMMARY | 2025-08-01 09:19 | XMS_ITS | Clinical Summary ---
Author Organization [employer] ([place], [place], [place], [place]) Address [address] [place] [address] Care Team Providers Care Organ Recovery Coordinator Name Role Phone Unavailable Primary Care Provider [...] Date Luis rded Speak language other than Chinese at home Not on file 12/01/2023 Want [...] (#1) 2025 Medical Devices Implanted Type Area Railway Yard Assistant Device Identifier Shelf Expiration Date Model / Serial / Lot Pacemakers Pacemakers Insurance DUAL COMPLETE MCR ADV AETNA [facility]
--- OUTSIDE RECORDS SUMMARY | 2025-08-01 09:19 | XMS_ITS | Clinical Summary ---
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, cN1, cM0) - Signed by Aris Lynch MD on 12/08/2023 Resolved Problems Problem Noted Date Diagnosed Date Resolved Date Dysphonia 12/31/2023 07/22/2025 Malignant neoplasm of larynx 12/29/2023 01/04/2024 Second hand smoke exposure 12/08/2023 0 07/22/2025 Immunizations Immunization Administration Dates Next Due Influenza, [...] of 3 - PCV) 11/01/2014 11/01/2013, 11/01/2012 [id number] Vaccine (2 - Chyna risk series) 07/16/2021 [...] Most Recently Relevant to Health Maintenance Insurance [facility] MEDIC[facility] Care Teams Program Director Scouting Relationship Specialty Start Date End Date Drew Howell MD 430 [facility] #1 [address] [place] [address] PCP - General 12/23/23 Efrain Sarah MD [address] [place] [address] 12/02/23 Aris Lynch MD 800 [facility] [address] [phone] Surgeon Otolaryngology 12/02/23 Toñito Huerta MD [address] [place] [phone] Consulting Physician Medical Oncology 01/18/24
--- OUTSIDE RECORDS SUMMARY | 2025-08-01 09:19 | XMS_ITS | Encounter Summary ---
Author Organization Healthcare Address [address] [place] [address] Care Team Providers Care Chemical Research Worker Name Role Phone Pcp, No Primary Care Provider Unavailbecca e Efrain Sarah MD Unavailable [phone] Aris Lynch MD Unavailable [phone] Pcp, No Primary Care Provider Unavailabl e Drew Howell MD Primary Care Provider [phone] Anjelica Kyes MD Unavailable [phone] Toñito Huerta MD Unavailable [phone] Encounter Details Date Type Department Care Team (Late st Contact Info) Description 11/24/2023 Orders Only External Location 800 [place] [address] Camryn Meadows, DO [address] [place] [phone] Social History Tobacco Use Types Packs/Day Years [...] on filedocumented in this encounter Care Teams Chemical Research Worker Relationship Specialty Start Date End Date Pcp, No [address] [place] [address] PCP - General 05/01/21 12/07/23 Pcp, No 800 [place] [address] PCP - General Family Medicine 12/08/23 12/22/23 Drew Howell MD [address] [place] [address] [address]1 [address]1 [place] [address] PCP - General 12/23/23 Efrain Sarah MD [address] [place] [address] 12/02/23 Aris Lynch MD 800 [facility] [address] [place] [phone] Surgeon Otolaryngology 12/02/23 Anjelica Keys MD 800 [facility] [address] [phone] Consulting Physician Medical Oncology 01/13/24 01/17/24 Toñito Huerta MD [address] [place] [phone] Consulting Physician Medical Oncology 01/18/24 documented as of this encounter
--- OUTSIDE RECORDS SUMMARY | 2025-08-01 09:19 | XMS_ITS | Referral Summary ---
Author Organization [facility] ([place], [place], [place], [place]) Address [address] [place] [address] Care Team Providers Care Rental Agent Name Role Phone Unavailable Primary Care Provider [...] Date Luis rded Speak language other than Malay at home Not on file 12/01/2023 Want [...] on file Medical Devices Implanted Type Area Splitter Tender Device Identifier Shelf Expiration Date Model / Serial / Lot Pacemakers Pacemakers Insurance DUAL COMPLETE MCR ADV AETNA [facility] [place]
--- OUTSIDE RECORDS SUMMARY | 2025-08-01 09:19 | XMS_ITS | Encounter Summary ---
Author Organization [facility] Address [address] [id number] Care Team Providers Care Septic Cleaner Name Role Phone Efrain Sarah MD Unavailable [phone] Aris Lynch MD Unavailable [phone] Drew Howell MD Primary Care Provider [phone] Toñito Huerta MD Unavailable [phone] Encounter Details Date Type Department Care Team (Late st Contact Info) Description 02/21/2024 Lab Requisition [facility] [address] [place] [address] Drea Loera MD [address] [place] [address] Malignant neoplasm of larynx, unspecified [...] s 03/08/2024 1:03 PM EDT [facility] Comment:[id number] A2 Test Result see scan 03/08/2024 1:03 PM EDT [facility] See Scanned Result 03/08/2024 1:03 PM EDT [facility] Tissue 02/21/2024 02/21/2024 9:5 3 AM EDT us Drea Loera MD LAB REF LAB BLOOD AND FLUID OR D Final Result [facility] [address] [place] [address] documented in this encounter Visit Diagnoses Diagnosis Malignant neoplasm of larynx, unspecified (CMS/HCC) documented in this encounter Additional Health Concerns Assessment Noted Time A fall risk assessment has been complete d for the patient 01/19/2024 10:49 AM EDT A Body Mass Index follow-up plan has been documented for the patient 01/01/2024 10:12 AM EST documented as of this encounter Care Teams Septic Cleaner Relationship Specialty Start Date End Date Drew Howell MD [address] [place] [address] [address] [place] [address] PCP - General 12/23/23 Efrain Sarah MD [facility] [place] [address] 12/02/23 Aris Lynch MD 800 [facility] [address] [place] [phone] Surgeon Otolaryngology 12/02/23 Toñito Huerta MD [address] [place] [phone] Consulting Physician Medical Oncology 01/18/24 documented as of this encounter
[2025-08-01 09:20] LABS: Hematocrit 43.9 % (42.0-52.0); Hemoglobin 14.3 g/dL (14.1-18.0); Immature Granulocytes % 0.3 %; Mean Corpuscular HGB Conc 32.6 g/dL (31.8-35.4); Mean Corpuscular Hemoglobin 30.3 pg (27.0-31.2); Mean Corpuscular Volume 93.0 fl (80-94); Nucleated Red Blood Cells % 0 %; Platelet Count 165 K/mm3 (142-424); Red Blood Count 4.72 M/mm3 (4.60-6.20); Red Cell Distribution Width-SD 46.1 fL; White Blood Count 6.8 K/mm3 (4.8-10.8)
[2025-08-01 09:43] LABS: Alanine Aminotransferase 12 U/L (12-78); Albumin Level 4.0 g/dl (3.5-5.0); Albumin/Globulin Ratio 1.3 (1.1-1.8); Alkaline Phosphatase 153 U/L (38-126); Anion Gap 12.5 mEq/L (5-15); Aspartate Amino Transferase 21 U/L (17-59); Bilirubin,Total 0.8 mg/dl (0.2-1.3); Blood Urea Nitrogen 14 mg/dl (9-20); Calcium 9.2 mg/dl (8.4-10.2); Carbon Dioxide 31 mmol/L (22.0-30.0); Chloride 100 mmol/L (98-107); Creatinine Clearance Estimated 66 mL/min (50-200); Creatinine,Serum 0.70 mg/dl (0.66-1.25); Estimated Glomerular Filt Rate 109 ml/min (>60); GFR (African American) 132 ML/MIN (>60); Globulin 3.1 g/dL (1.3-3.2); Glucose 95 mg/dl (74-100); Potassium 4.5 mmoL/L (3.5-5.1); Sodium 139 mmol/L (136-145); Total Protein,Serum 7.1 g/dl (6.3-8.2)
[2025-08-01 10:13] LABS: Thyroid Stimulating Hormone 1.65 uIU/mL (0.465-4.68)
[2025-08-01] MEDS: SODIUM CHLORIDE 0.9% 10ML FLUSH SYRINGE 10 ML IV (10:14)
[2025-08-01 10:32] VITALS: BP 108/56; PULSE 70; RESP 20; TEMP 36.4; O2SAT 98
[2025-08-01] MEDS: PEMBROLIZUMAB 200 MG in 0.9 % SODIUM CHLORIDE 50 ML 116 MG IV (10:32)
[2025-08-01 11:20] VITALS: BP 115/65; PULSE 72; RESP 20; O2SAT 98
== END 2025-08-01 23:59 | disposition home or self-care (01) ==
LOC: INF 08:59
PROVIDERS: PCP Family Medicine; Visit Provider Internal Medicine Medical Oncology
DX: C76.0 Malignant neoplasm of head, face and neck (principal); Z51.11 Encounter for antineoplastic chemotherapy
CPT/HCPCS: 80053; 82024; 82533; 84443; 85025; 96413; J9271

== ENCOUNTER 2025-08-22 09:15 | Outpatient (CLI) | payer MEDICARE, OTHER, SELFPAY ==
[2025-08-22 09:19] VITALS: BMI 24.2
[2025-08-22 09:33] LABS: Hematocrit 42.3 % (42.0-52.0); Hemoglobin 14.0 g/dL (14.1-18.0); Immature Granulocytes % 0.2 %; Mean Corpuscular HGB Conc 33.1 g/dL (31.8-35.4); Mean Corpuscular Hemoglobin 30.0 pg (27.0-31.2); Mean Corpuscular Volume 90.8 fl (80-94); Nucleated Red Blood Cells % 0 %; Platelet Count 228 K/mm3 (142-424); Red Blood Count 4.66 M/mm3 (4.60-6.20); Red Cell Distribution Width-SD 45.8 fL; White Blood Count 8.3 K/mm3 (4.8-10.8)
[2025-08-22 09:41] LABS: Albumin Level 3.6 g/dl (3.5-5.0); Chloride 99 mmol/L (98-107)
[2025-08-22 09:42] LABS: Potassium 3.8 mmoL/L (3.5-5.1); Sodium 137 mmol/L (136-145)
[2025-08-22 09:44] LABS: Alanine Aminotransferase 13 U/L (12-78); Anion Gap 10.8 mEq/L (5-15); Aspartate Amino Transferase 19 U/L (17-59); Blood Urea Nitrogen 12 mg/dl (9-20); Carbon Dioxide 31 mmol/L (22.0-30.0); Creatinine Clearance Estimated 63 mL/min (50-200); Creatinine,Serum 0.80 mg/dl (0.66-1.25); Estimated Glomerular Filt Rate 93 ml/min (>60); GFR (African American) 113 ML/MIN (>60)
[2025-08-22 09:45] LABS: Albumin/Globulin Ratio 1.0 (1.1-1.8); Alkaline Phosphatase 158 U/L (38-126); Bilirubin,Total 0.5 mg/dl (0.2-1.3); Calcium 8.6 mg/dl (8.4-10.2); Globulin 3.6 g/dL (1.3-3.2); Glucose 90 mg/dl (74-100); Total Protein,Serum 7.2 g/dl (6.3-8.2)
[2025-08-22] MEDS: SODIUM CHLORIDE 0.9% 10ML FLUSH SYRINGE 10 ML IV (10:28)
[2025-08-22 10:34] VITALS: BP 106/58; PULSE 70; RESP 18; TEMP 36.6; O2SAT 97
[2025-08-22] MEDS: PEMBROLIZUMAB 200 MG in 0.9 % SODIUM CHLORIDE 50 ML 100 MG IV (10:34)
[2025-08-22 10:58] LABS: Thyroid Stimulating Hormone 1.57 uIU/mL (0.465-4.68)
[2025-08-22 11:20] VITALS: BP 110/65; PULSE 66; RESP 20; O2SAT 97
== END 2025-08-22 23:59 | disposition home or self-care (01) ==
LOC: INF 09:18
PROVIDERS: PCP Family Medicine; Visit Provider Internal Medicine Medical Oncology
DX: C76.0 Malignant neoplasm of head, face and neck (principal); Z51.11 Encounter for antineoplastic chemotherapy
CPT/HCPCS: 80053; 82024; 82533; 84443; 85025; 96413; J9271

== ENCOUNTER 2025-09-12 09:01 | Outpatient (CLI) | payer MEDICARE, OTHER, SELFPAY ==
[2025-09-12 09:04] VITALS: BMI 25.1
--- OUTSIDE RECORDS SUMMARY | 2025-09-12 09:07 | XMS_ITS | Encounter Summary ---
Author Organization [facility] Address [address] [id number] Care Team Providers Care Squirrel Man Name Role Phone Efrain Sarah MD Unavailable [phone] Aris Lynch MD Unavailable [phone] Drew Howell MD Primary Care Provider [phone] Toñito Huerta MD Unavailable [phone] Encounter Details Date Type Department Care Team (Late st Contact Info) Description 02/21/2024 Lab Requisition [facility] [address] [place] [address] Drea Loera MD [address] [place] [address] Malignant neoplasm of larynx, unspecified (CMS/HCC) Social History Tobacco Use Types Packs/Day Years Used Date Smoking Tobacco: Every Day Cigarettes 1 71.9 Started: 1952 Smokeless Tobacco: Never Comments:Trying to [...] s 03/08/2024 1:03 PM EDT [facility]ALTH[facility]ARE LAB Comment:[id number] A2 Test Result see scan 03/08/2024 1:03 PM EDT [facility] See Scanned Result 03/08/2024 1:03 PM EDT [facility] Tissue 02/21/2024 02/21/2024 9:5 3 AM EDT us Drea Loera MD LAB REF LAB BLOOD AND FLUID OR D Final Result [facility] [address] [place] [address] documented in this encounter Visit Diagnoses Diagnosis Malignant neoplasm of larynx, unspecified (CMS/HCC) documented in this encounter Additional Health Concerns Assessment Noted Time A fall risk assessment has been complete d for the patient 01/19/2024 10:49 AM EDT A Body Mass Index follow-up plan has been documented for the patient 01/01/2024 10:12 AM EST documented as of this encounter Care Teams Squirrel Man Relationship Specialty Start Date End Date Drew Howell MD [address] [place] [address] [address] [place] [address] PCP - General 12/23/23 Efrain Sarah MD [facility] [place] [address] 12/02/23 Aris Lynch MD 800 [facility] [address] [place] [address] [phone] Surgeon Otolaryngology 12/02/23 Toñito Huerta MD [address] [place] [address] [phone] Consulting Physician Medical Oncology 01/18/24 documented as of this encounter
--- OUTSIDE RECORDS SUMMARY | 2025-09-12 09:07 | XMS_ITS | Encounter Summary ---
Author Organization [facility] Address [address] [place] [address] Care Team Providers Care Mold Bunch Trimmer Name Role Phone Efrain Sarah MD Unavailable [phone] Aris Lynch MD Unavailable [phone] Drew Howell MD Primary Care Provider [phone] Toñito Huerta MD Unavailable [phone] Encounter Details Date Type Department Care Team (Late st Contact Info) Description 03/05/2025 Orders Only External Location [address] [place] [address] Provider, External Social History Tobacco Use Types [...] documented as of this encounter Care Teams Mold Bunch Trimmer Relationship Specialty Start Date End Date Drew Howell MD [address] [facility] [address] [place] [address] PCP - General 12/23/23 Efrain Sarah MD [address] [place] [address] 12/02/23 Aris Lynch MD 800 [facility] [address] [phone] Surgeon Otolaryngology 12/02/23 Toñito Huerta MD [address] [place] [phone] Consulting Physician Medical Oncology 01/18/24 documented as of this encounter
--- OUTSIDE RECORDS SUMMARY | 2025-09-12 09:07 | XMS_ITS | Encounter Summary ---
Author Organization [facility] Address [address] [place] [address] Care Team Providers Care Team Automobile Assembler Name Role Phone Pcp, No Primary Care Provider Unavailbecca e Efrain Sarah MD Unavailable [phone] Aris Lynch MD Unavailable [phone] Pcp, No Primary Care Provider Unavailabl e Drew Howell MD Primary Care Provider [phone] Anjelica Keys MD Unavailable [phone] Toñito Huerta MD Unavailable [phone] Encounter Details Date Type Department Care Team (Late st Contact Info) Description 11/24/2023 Orders Only External Location [address] [place] [address] Camryn Meadows, DO [address] [place] [phone] Social History Tobacco Use Types Packs/Day Years [...] on filedocumented in this encounter Care Teams Team Automobile Assembler Relationship Specialty Start Date End Date Pcp, No [address] [place] [address] PCP - General 05/01/21 12/07/23 Pcp, No [address] [place] [address] PCP - General Family Medicine 12/08/23 12/22/23 Drew Howell MD [address] [place] [address] [address] [place] [address] PCP - General 12/23/23 Efrain Sarah MD [address] [place] [address] 12/02/23 Aris Lynch MD 800 [facility] [address] [place] [phone] Surgeon Otolaryngology 12/02/23 Anjelica Keys MD 800 [facility] [address] [phone] Consulting Physician Medical Oncology 01/13/24 01/17/24 Toñito Huerta MD [address] [place] [phone] Consulting Physician Medical Oncology 01/18/24 documented as of this encounter
--- OUTSIDE RECORDS SUMMARY | 2025-09-12 09:07 | XMS_ITS | Clinical Summary ---
Author Organization [facility] Address [address] [place] [address] Care Team Providers Care Flea Market Seller Name Role Phone Efrain Sarah MD Unavailable [phone] Aris Lynch MD Unavailable [phone] Drew Howell MD Primary Care Provider [phone] Toñito Huerta MD Unavailable [phone] Allergies Active Allergy Reactions Criticality Noted [...] 1 71.9 Started: 1952 Smokeless Tobacco: Never Tobacco Cessation:Ready [...] of 3 - PCV) 11/01/2014 11/01/2013, 11/01/2012 [id number] Vaccine (2 - Chyna risk series) 07/16/2021 [...] Most Recently Relevant to Health Maintenance Insurance [facility] MEDICAID [facility] MEDICARE Care Teams Flea Market Seller Relationship Specialty Start Date End Date Drew Howell MD 430 [facility] [address] [place] [address] PCP - General 12/23/23 Efrain Sarah MD [address] [place] [address] 12/02/23 Aris Lynch MD 800 [facility] [address] [phone] Surgeon Otolaryngology 12/02/23 Toñito Huerta MD [address] [place] [phone] Consulting Physician Medical Oncology 01/18/24
--- OUTSIDE RECORDS SUMMARY | 2025-09-12 09:07 | XMS_ITS | Data Portability ---
Author Organization [facility] & ONOFRE Soriano ADMIN Address [address] [place] [id number] Care Team Providers Care Worship Pastor Name Role Phone DESI VALDERRAMA Radiation Oncologist Assessment No assessment recorded. Plan of Treatment Reminders Order Date Submit Date Provider Last Modified By Organization Details Last Modified Time Details Appointments None recorded. Lab CBC w/ diff 2024 025 [facility], [address] [place], [address], 15:26:44 CMP, serum or plasma 2024 025 [email or web address] [facility], [address] [place], [address], 09:31:57 TSH, serum or plasma 2024 025 [email or web address] [facility], [address] [place], [address], 15:26:44 cortisol, am, serum 2024 025 [email or web address] [facility], [address] [place], [address], 5 15:26:44 TSH, serum or plasma 2024 025 [email or web address] 6 [facility], [address] [place], [address], 5 08:24:07 CBC w/ diff 2024 025 [email or web address] 6 [facility], [address] [place], [address], 5 08:24:07 CMP, serum or plasma 2024 025 [facility], [address] [place], [address], 5 09:03:11 magnesium, serum or plasma 2024 025 [email or web address] 6 [facility], [address] [place], [address], 5 08:24:07 vitamin B12 + folate, serum or blood 2024 025 [email or web address] 6 [facility], [address] [place], [address], 5 08:24:07 magnesium, serum or plasma 2024 025 [email or web address] 6 [facility], [address] [place], [address], 5 09:36:26 CMP, serum or plasma 2024 025 [facility], [address] [place], [address], 5 09:33:09 CBC w/ diff 2024 025 [email or web address] 6 [facility], [address] [place], [address], 5 09:36:25 TSH, serum or plasma 2024 025 [email or web address] 6 [facility], [address] [place], [address], 5 09:36:26 vitamin B12 + folate, serum or blood 2024 025 [email or web address] 6 [facility], [address] [facility] [place], [address], 09:36:26 Referral None recorded. Procedures None recorded. Surgeries None recorded. Imaging CT, neck, soft tissue, w/ contrast - repeat CT following holding keytruda. 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 please compare to early March 2025 ct neck to see if decrease in size. 2024 025 [facility] (Centralized Scheduling), [address], [place], [address], 5 15:13:39 CT, neck, soft tissue, w/ contrast 2024 025 [facility] [address] [place] [address] (Centralized Scheduling), [address], [place], [address], 5 09:01:35 CT, chest + abdomen + pelvis, w/ contrast 2024 [email or web address] [place] [address] (Centralized Scheduling), [address], [place], [address], 5 09:01:35 Medication Orders None recorded. Patient TargetsNo targets recorded. Patient InstructionsNo instructions recorded. Reason for Referral None Reported. Results Created Date Observation Date Name Description Value Unit Range Abnormal Flag Note LastModifiedBy Organization Detail LastModifiedTime 01/12/2001/11/2025 CBC AUTO W DIFF WBC 8.0 K/uL 4.0-10 .5 Not Available [facility] [address], [place], [address], 01/11/2025 09:16:39 01/12/2001/11/2025 CBC AUTO W DIFF RBC 4.8 M/mm3 4.7-6. 1 Not Available [facility]) [address], [place], [address], 01/11/2025 09:16:39 01/12/20 25 01/11/2025 CBC AUTO W DIFF HGB 14.3 gm/dL 13.5-1 8.0 Not Available [facility]) [address] , [place], [address], 01/11/2025 09:16:39 01/12/20 25 01/11/2025 CBC AUTO W DIFF HCT 43.7 % 42.0-5 2.0 Not Available [facility]) [address] , [place], [address], 01/11/2025 09:16:39 01/12/20 25 01/11/2025 CBC AUTO W DIFF MCV 91.6 fL 78-100 Not Available [facility]) [address] , [place], [address], 01/11/2025 09:16:39 01/12/20 25 01/11/2025 CBC AUTO W DIFF MCH 30.0 pg 27-31 Not Available [facility]) [address] , [place], [address], 01/11/2025 09:16:39 01/12/20 25 01/11/2025 CBC AUTO W DIFF MCHC 32.7 g/dL 32-36 Not Available [facility]) [address] , [place], [address], 01/11/2025 09:16:39 01/12/20 25 01/11/2025 CBC AUTO W DIFF RDW 14.0 % 11.5-1 4.0 Not Available [facility]) [address] [place], [address], 01/11/2025 09:16:39 01/12/20 25 01/11/2025 CBC AUTO W DIFF platelet count 183 K/uL 150-45 0 Not Available [facility]) [address], [place], [address], 01/11/2025 09:16:39 01/12/20 25 01/11/2025 CBC AUTO W DIFF MPV 10.2 fL 6-9.5 high Not Available [facility] ([facility]) [address], [place], [address], 01/11/2025 09:16:39 01/12/20 25 01/11/2025 CBC AUTO W DIFF neutrophil% 69.2 % 43-65 high Not Available [facility] ([facility]) [address], [place], [address], 01/11/2025 09:16:39 01/12/20 25 01/11/2025 CBC AUTO W DIFF lymphocyte% 23.3 % 20.5-4 5.5 Not Available [facility]) [address] [place], [address], 01/11/2025 09:16:39 01/12/20 25 01/11/2025 CBC AUTO W DIFF monocyte% 5.0 % 5.5-11 .7 low Not Available [facility]) [address] [place], [address], 01/11/2025 09:16:39 01/12/20 25 01/11/2025 CBC AUTO W DIFF eosinophil% 1.8 % 0.9-2. 9 Not Available [facility] [address] [place], [address], 01/11/2025 09:16:39 01/12/20 25 01/11/2025 CBC AUTO W DIFF basophil% 0.3 % 0.2-1. 0 Not Available [facility] [address] [place], [address], 01/11/2025 09:16:39 01/12/20 25 01/11/2025 CBC AUTO W DIFF immature granulocytes % 0.4 % 0.0-0. 8 Not Available [facility]) [address], [place], [address], 01/11/2025 09:16:39 01/12/20 25 01/11/2025 CBC AUTO W DIFF nucleated red blood cells % 0.0 % Not Available [facility] ([facility]) [address] [facility], [place], [address], 01/11/2025 09:16:39 01/12/20 25 01/11/2025 CBC AUTO W DIFF neutrophil# 5.5 K/uL 2.2-4. 8 high Not Available [facility]) [address], [place], [address], 01/11/2025 09:16:39 01/12/20 25 01/11/2025 CBC AUTO W DIFF lymphocyte# 1.9 cell/ mcL 1.3-2. 9 Not Available [facility] ([facility]) [address], [place], [address], 01/11/2025 09:16:39 01/12/20 25 01/11/2025 CBC AUTO W DIFF monocyte# 0.4 cell/ mcL 0.3-0. 8 Not Available [facility]) [address] [facility], [place], [address], 01/11/2025 09:16:39 01/12/20 25 01/11/2025 CBC AUTO W DIFF eosinophil# 0.1 cell/ mcL 0-0.2 Not Available [facility]) [address] [place], [address], 01/11/2025 09:16:39 01/12/20 25 01/11/2025 CBC AUTO W DIFF basophil# 0.0 cell/ mcL 0.0-1. 0 Not Available [facility]) [address] [place], [address], 01/11/2025 09:16:39 01/12/20 25 01/11/2025 CBC AUTO W DIFF immature gramulocytes # 0.03 K/uL Not Available [facility] ([facility]) [address] , [place], [address], 01/11/2025 09:16:39 01/12/20 25 01/11/2025 CBC AUTO W DIFF nucleated red blood cells # 0.00 K/uL Not Available [facility] ([facility]) [address] , [place], [address], 01/11/2025 09:16:39 01/12/20 25 01/11/2025 CBC AUTO W DIFF manual differential NO Not Available [facility]) [address] , [place], [address], 01/11/2025 09:16:39 01/12/20 25 01/11/2025 COMP METAB OLIC PANEL sodium 143 mmol/ L 136-14 5 Not Available [facility]) [address] , [place], [address], 01/11/2025 09:41:28 01/12/20 25 01/11/2025 COMP METAB OLIC PANEL potassium 4.1 mmol/ L 3.6-5. 0 Not Available [facility]) [address] , [place], [address], 01/11/2025 09:41:28 01/12/20 25 01/11/2025 COMP METAB OLIC PANEL chloride 102 mmol/ L 98-107 Not Available [facility]) [address] , [place], [address], 01/11/2025 09:41:28 01/12/20 25 01/11/2025 COMP METAB OLIC PANEL carbon dioxide 29.2 mmol/ L 21.0-3 2.0 Not Available [facility]) [address] , [place], [address], 01/11/2025 09:41:28 01/12/20 25 01/11/2025 COMP METAB OLIC PANEL anion gap 15.9 Not Available [facility] ([facility]) [address], [place], [address], 01/11/2025 09:41:28 01/12/20 25 01/11/2025 COMP METAB OLIC PANEL glucose 77 mg/dL 70-120 Not Available [facility]) [address], [place], [address], 01/11/2025 09:41:28 01/12/20 25 01/11/2025 COMP METAB OLIC PANEL BUN 18 mg/dL 7-18 Not Available [facility]) [address], [place], [address], 01/11/2025 09:41:28 01/12/20 25 01/11/2025 COMP METAB OLIC PANEL creatinine 1.0 mg/dL 0.6-1. 3 Not Available [facility] ([facility]) [address], [place], [address], 01/11/2025 09:41:28 01/12/20 25 01/11/2025 COMP METAB [...] gilbert ing kiney funct ion. Not Available [facility] ([facility]) [address] , [place], [address], 01/11/2025 09:41:28 01/12/20 25 01/11/2025 COMP METAB OLIC PANEL osmolality (calculated) 298 mOsm/ kg 275-30 1 OSMOL ALITY IS A CALCU LATIO N UTILI ZING THE SERUM /PLAS MA SODIU M, GLUCO SE AND UREA NITRO GEN (BUN) LEVEL S. FOR THE MOST ACCUR ATE RESUL T A MEASU RED SERUM OSMOL ALITY IS TUTU UNDERWOODD. Not Available [facility] ([facility]) [address] , [place], [address], 01/11/2025 09:41:28 01/12/20 25 01/11/2025 COMP METAB OLIC PANEL total protein 7.3 g/dL 6.4-8. 2 Not Available [facility]) [address] , [place], [address], 01/11/2025 09:41:28 01/12/20 25 01/11/2025 COMP METAB OLIC PANEL albumin 3.3 g/dL 3.4-5. 0 low Not Available [facility]) [address] , [place], [address], 01/11/2025 09:41:28 01/12/20 25 01/11/2025 COMP METAB OLIC PANEL globulin 4.0 Not Available [facility] ([facility]) [address] , [place], [address], 01/11/2025 09:41:28 01/12/20 25 01/11/2025 COMP METAB OLIC PANEL alb/glob ratio 0.8 0.7-2 Not Available [facility] ([facility]) [address] , [place], [address], 01/11/2025 09:41:28 01/12/20 25 01/11/2025 COMP METAB OLIC PANEL calcium 9.3 mg/dL 8.5-10 .5 Not Available [facility]) [address], [place], [address], 01/11/2025 09:41:28 01/12/20 25 01/11/2025 COMP METAB OLIC PANEL bilirubin total 0.30 mg/dL 0.10-1 .00 Not Available [facility]) [address], [place], [address], 01/11/2025 09:41:28 01/12/20 25 01/11/2025 COMP METAB OLIC PANEL AST (SGOT) 13 U/L 0-37 Not Available [facility] ([facility]) [address] , [place], [address], 01/11/2025 09:41:28 01/12/20 25 01/11/2025 COMP METAB OLIC PANEL ALT (SGPT) 13 U/L 0-65 Not Available [facility] ([facility]) [address] , [place], [address], 01/11/2025 09:41:28 01/12/20 25 01/11/2025 COMP METAB OLIC PANEL alk phosphatase 137 U/L 46-116 high Not Available [facility] ([facility]) [address] , [place], [address], 01/11/2025 09:41:28 01/12/20 25 01/11/2025 THYRO ID PANEL W/TSH T3 uptake 32.00 % 24.00- 39.00 Not Available [facility]) [address] , [place], [address], 01/11/2025 10:30:29 01/12/20 25 01/11/2025 THYRO ID PANEL W/TSH T4 total 7.9 mcg/d L 4.5-12 .1 Not Available [facility] ([facility]) [address], [place], [address], 01/11/2025 10:30:29 01/12/20 25 01/11/2025 THYRO ID PANEL W/TSH free thyroxine index 2.53 1.60-3 .70 Not Available [facility] ([facility]) [address] , [place], [address], 01/11/2025 10:30:29 01/12/20 25 01/11/2025 THYRO ID PANEL W/TSH thyroid stim hormone 1.93 mIU/L 0.36-3 .74 Not Available [facility] ([facility]) [address], [place], [address], 01/11/2025 10:30:29 01/12/20 25 01/11/2025 VITAM IN B12 vitamin B12 716 pg/mL 193-98 6 *Note : Refer miguelangel May. New Test Metho d in use. Not Available [facility] ([facility]) [address], [place], [address], 01/11/2025 12:27:31 01/12/20 25 01/11/2025 VITAM IN B12 folate (folic acid), serum 14.3 NG/mL 8.6-58 .9 *Note : Refer miguelangel May. New Test Metho d in use. Not Available [facility] ([facility]) [address], [place], [address], 01/11/2025 12:27:31 01/12/20 25 01/12/2025 CORTI GENEVIEVE cortisol 8.6 ug/dL 6.2-19 .4 Pleas e Note: The refer ence steve wen and allan ing for this test is for an AM colle ction . If this is a PM colle ction pleas e use: Corti genevieve PM: 2.3-1 1.9 Perfo rmed at: - [facility] [address] [id number] Lab Direc tor: Seth chu PhD, Phone : [phone] Not Available [facility]) [address], [place], [address], 01/12/2025 08:15:51 02/02/20 25 02/01/2025 CBC AUTO W DIFF WBC 6.4 K/uL 4.0-10 .5 Not Available [facility]) [address], [place], [address], 02/01/2025 09:15:02 02/02/20 25 02/01/2025 CBC AUTO W DIFF RBC 4.6 M/mm3 4.7-6. 1 low Not Available [facility] ([facility]) [address], [place], [address], 02/01/2025 09:15:02 02/02/20 25 02/01/2025 CBC AUTO W DIFF HGB 13.6 gm/dL 13.5-1 8.0 Not Available [facility]) [address] , [place], [address], 02/01/2025 09:15:02 02/02/20 25 02/01/2025 CBC AUTO W DIFF HCT 41.4 % 42.0-5 2.0 low Not Available [facility]) [address] , [place], [address], 02/01/2025 09:15:02 02/02/20 25 02/01/2025 CBC AUTO W DIFF MCV 91.0 fL 78-100 Not Available [facility]) [address] , [place], [address], 02/01/2025 09:15:02 02/02/20 25 02/01/2025 CBC AUTO W DIFF MCH 29.9 pg 27-31 Not Available [facility]) [address] , [place], [address], 02/01/2025 09:15:02 02/02/20 25 02/01/2025 CBC AUTO W DIFF MCHC 32.9 g/dL 32-36 Not Available [facility]) [address], [place], [address], 02/01/2025 09:15:02 02/02/20 25 02/01/2025 CBC AUTO W DIFF RDW 13.7 % 11.5-1 4.0 Not Available [facility]) [address], [place], [address], 02/01/2025 09:15:02 02/02/20 25 02/01/2025 CBC AUTO W DIFF platelet count 179 K/uL 150-45 0 Not Available [facility]) [address], [place], [address], 02/01/2025 09:15:02 02/02/20 25 02/01/2025 CBC AUTO W DIFF MPV 10.3 fL 6-9.5 high Not Available [facility]) [address], [place], [address], 02/01/2025 09:15:02 02/02/20 25 02/01/2025 CBC AUTO W DIFF neutrophil% 63.2 % 43-65 Not Available [facility] ([facility]) [address], [place], [address], 02/01/2025 09:15:02 02/02/20 25 02/01/2025 CBC AUTO W DIFF lymphocyte% 26.4 % 20.5-4 5.5 Not Available [facility]) [address], [place], [address], 02/01/2025 09:15:02 02/02/20 25 02/01/2025 CBC AUTO W DIFF monocyte% 6.2 % 5.5-11 .7 Not Available [facility]) [address], [place], [address], 02/01/2025 09:15:02 02/02/20 25 02/01/2025 CBC AUTO W DIFF eosinophil% 3.4 % 0.9-2. 9 high Not Available [facility] ([facility]) [address], [place], [address], 02/01/2025 09:15:02 02/02/20 25 02/01/2025 CBC AUTO W DIFF basophil% 0.3 % 0.2-1. 0 Not Available [facility] ([facility]) [address], [place], [address], 02/01/2025 09:15:02 02/02/20 25 02/01/2025 CBC AUTO W DIFF immature granulocytes % 0.5 % 0.0-0. 8 Not Available [facility] ([facility]) [address], [place], [address], 02/01/2025 09:15:02 02/02/20 25 02/01/2025 CBC AUTO W DIFF nucleated red blood cells % 0.0 % Not Available [facility] ([facility]) [address] [facility], [place], [address], 02/01/2025 09:15:02 02/02/20 25 02/01/2025 CBC AUTO W DIFF neutrophil# 4.1 K/uL 2.2-4. 8 Not Available [facility] ([facility]) [address] [place], [address], 02/01/2025 09:15:02 02/02/20 25 02/01/2025 CBC AUTO W DIFF lymphocyte# 1.7 cell/ mcL 1.3-2. 9 Not Available [facility]) [address] [place], [address], 02/01/2025 09:15:02 02/02/20 25 02/01/2025 CBC AUTO W DIFF monocyte# 0.4 cell/ mcL 0.3-0. 8 Not Available [facility] ([facility]) [address], [place], [address], 02/01/2025 09:15:02 02/02/20 25 02/01/2025 CBC AUTO W DIFF eosinophil# 0.2 cell/ mcL 0-0.2 Not Available [facility]) [address], [place], [address], 02/01/2025 09:15:02 02/02/20 25 02/01/2025 CBC AUTO W DIFF basophil# 0.0 cell/ mcL 0.0-1. 0 Not Available [facility]) [address], [place], [address], 02/01/2025 09:15:02 02/02/20 25 02/01/2025 CBC AUTO W DIFF immature gramulocytes # 0.03 K/uL Not Available [facility] ([facility]) [address], [place], [address], 02/01/2025 09:15:02 02/02/2002/01/2025 CBC AUTO W DIFF nucleated red blood cells # 0.00 K/uL Not Available [facility] ([facility]) [address] , [place], [address], 02/01/2025 09:15:02 02/02/2002/01/2025 CBC AUTO W DIFF manual differential NO Not Available [facility]) [address], [place], [address], 02/01/2025 09:15:02 02/02/2002/01/2025 COMP METAB OLIC PANEL sodium 138 mmol/ L 136-14 5 Not Available [facility]) [address] , [place], [address], 02/01/2025 09:33:09 02/02/20 25 02/01/2025 COMP METAB OLIC PANEL potassium 4.1 mmol/ L 3.6-5. 0 Not Available [facility]) [address] , [place], [address], 02/01/2025 09:33:09 02/02/20 25 02/01/2025 COMP METAB OLIC PANEL chloride 101 mmol/ L 98-107 Not Available [facility]) [address] , [place], [address], 02/01/2025 09:33:09 02/02/20 25 02/01/2025 COMP METAB OLIC PANEL carbon dioxide 31.1 mmol/ L 21.0-3 2.0 Not Available [facility] ([facility]) [address] , [place], [address], 02/01/2025 09:33:09 02/02/20 25 02/01/2025 COMP METAB OLIC PANEL anion gap 10.0 Not Available [facility] ([facility]) [address] , [place], [address], 02/01/2025 09:33:09 02/02/20 25 02/01/2025 COMP METAB OLIC PANEL glucose 65 mg/dL 70-120 low Not Available [facility]) [address] , [place], [address], 02/01/2025 09:33:09 02/02/20 25 02/01/2025 COMP METAB OLIC PANEL BUN 12 mg/dL 7-18 Not Available [facility]) [address] [place], [address], 02/01/2025 09:33:09 02/02/20 25 02/01/2025 COMP METAB OLIC PANEL creatinine 1.2 mg/dL 0.6-1. 3 Not Available [facility] ([facility]) [address], [place], [address], 02/01/2025 09:33:09 02/02/20 25 02/01/2025 COMP METAB [...] gilbert ing kiney funct ion. Not Available [facility] ([facility]) [address] , [place], [address], 02/01/2025 09:33:09 02/02/20 25 02/01/2025 COMP METAB OLIC PANEL osmolality (calculated) 285 mOsm/ kg 275-30 1 OSMOL ALITY IS A CALCU LATIO N UTILI ZING THE SERUM /PLAS MA SODIU M, GLUCO SE AND UREA NITRO GEN (BUN) LEVEL S. FOR THE MOST ACCUR ATE RESUL T A MEASU RED SERUM OSMOL ALITY IS TUTU SCHWARTZ. Not Available [facility] [address] , [place], [address], 02/01/2025 09:33:09 02/02/20 25 02/01/2025 COMP METAB OLIC PANEL total protein 7.2 g/dL 6.4-8. 2 Not Available [facility] [address] , [place], [address], 02/01/2025 09:33:09 02/02/20 25 02/01/2025 COMP METAB OLIC PANEL albumin 3.7 g/dL 3.4-5. 0 Not Available [facility] [address] [place], [address], 02/01/2025 09:33:09 02/02/20 25 02/01/2025 COMP METAB OLIC PANEL globulin 3.5 Not Available [facility] ([facility]) [address], [place], [address], 02/01/2025 09:33:09 02/02/20 25 02/01/2025 COMP METAB OLIC PANEL alb/glob ratio 1.1 0.7-2 Not Available [facility] ([facility]) [address], [place], [address], 02/01/2025 09:33:09 02/02/20 25 02/01/2025 COMP METAB OLIC PANEL calcium 8.5 mg/dL 8.5-10 .5 Not Available [facility] ([facility]) [address] , [place], [address], 02/01/2025 09:33:09 02/02/20 25 02/01/2025 COMP METAB OLIC PANEL bilirubin total 0.30 mg/dL 0.10-1 .00 Not Available [facility] ([facility]) [address] , [place], [address], 02/01/2025 09:33:09 02/02/20 25 02/01/2025 COMP METAB OLIC PANEL AST (SGOT) 14 U/L 0-37 Not Available [facility] ([facility]) [address] , [place], [address], 02/01/2025 09:33:09 02/02/20 25 02/01/2025 COMP METAB OLIC PANEL ALT (SGPT) 16 U/L 0-65 Not Available [facility] ([facility]) [address] , [place], [address], 02/01/2025 09:33:09 02/02/20 25 02/01/2025 COMP METAB OLIC PANEL alk phosphatase 132 U/L 46-116 high Not Available [facility] ([facility]) [address] , [place], [address], 02/01/2025 09:33:09 02/02/20 25 02/01/2025 THYRO ID PANEL W/TSH T3 uptake 31.00 % 24.00- 39.00 Not Available [facility] ([facility]) [address] , [place], [address], 02/01/2025 09:33:11 02/02/20 25 02/01/2025 THYRO ID PANEL W/TSH T4 total 6.5 mcg/d L 4.5-12 .1 Not Available [facility] ([facility]) [address] [place], [address], 02/01/2025 09:33:11 02/02/20 25 02/01/2025 THYRO ID PANEL W/TSH free thyroxine index 2.02 1.60-3 .70 Not Available [facility] ([facility]) [address] [place], [address], 02/01/2025 09:33:11 02/02/20 25 02/01/2025 THYRO ID PANEL W/TSH thyroid stim hormone 2.10 mIU/L 0.36-3 .74 Not Available [facility] ([facility]) [address], [place], [address], 02/01/2025 09:33:11 02/02/20 25 02/01/2025 MAGNE SIUM magnesium 1.8 mg/dL 1.8-2. 4 Not Available [facility] [address] [place], [address], 02/01/2025 09:55:48 02/02/20 25 02/01/2025 VITAM IN B12 vitamin B12 602 pg/mL 193-98 6 *Note : Refer ence Steve hood New Test Metho d in use. Not Available [facility] ([facility]) [address] [place], [address], 02/01/2025 10:28:32 02/02/20 25 02/01/2025 VITAM IN B12 folate (folic acid), serum 9.4 NG/mL 8.6-58 .9 *Note : Refer miguelangel hood New Test Metho d in use. Not Available [facility] ([facility]) [address] , [place], [address], 02/01/2025 10:28:32 02/02/20 25 02/02/2025 CORTI GENEVIEVE cortisol 12.3 ug/dL 6.2-19 .4 Plepat verdugo Note: The refer ence inter wen and allan ing for this test is for an AM colle ction . If this is a PM colle ction pleas e use: Corti genevieve PM: 2.3-1 1.9 Perfo rmed at: [place] [address] Lab Dire tor: Seth chu PhD, Phone : [phone] Not Available [facility] [address] , [place], [address], 02/02/2025 06:11:36 02/23/20 25 02/22/2025 CBC AUTO W DIFF WBC 7.6 K/uL 4.0-10 .5 Not Available [facility] [address] , [place], [address], 02/22/2025 08:44:25 02/23/20 25 02/22/2025 CBC AUTO W DIFF RBC 4.8 M/mm3 4.7-6. 1 Not Available [facility] [address] , [place], [address], 02/22/2025 08:44:25 02/23/20 25 02/22/2025 CBC AUTO W DIFF HGB 14.2 gm/dL 13.5-1 8.0 Not Available [facility] [address], [place], [address], 02/22/2025 08:44:25 02/23/20 25 02/22/2025 CBC AUTO W DIFF HCT 43.2 % 42.0-5 2.0 Not Available [facility] [address], [place], [address], 02/22/2025 08:44:25 02/23/20 25 02/22/2025 CBC AUTO W DIFF MCV 89.6 fL 78-100 Not Available [facility] [address], [place], [address], 02/22/2025 08:44:25 02/23/20 25 02/22/2025 CBC AUTO W DIFF MCH 29.5 pg 27-31 Not Available [facility] [address] , [place], [address], 02/22/2025 08:44:25 02/23/20 25 02/22/2025 CBC AUTO W DIFF MCHC 32.9 g/dL 32-36 Not Available [facility] [address] , [place], [address], 02/22/2025 08:44:25 02/23/20 25 02/22/2025 CBC AUTO W DIFF RDW 13.4 % 11.5-1 4.0 Not Available [facility] [address] , [place], [address], 02/22/2025 08:44:25 02/23/20 25 02/22/2025 CBC AUTO W DIFF platelet count 171 K/uL 150-45 0 Not Available [facility] [address] , [place], [address], 02/22/2025 08:44:25 02/23/20 25 02/22/2025 CBC AUTO W DIFF MPV 10.7 fL 6-9.5 high Not Available [facility] [address], [place], [address], 02/22/2025 08:44:25 02/23/20 25 02/22/2025 CBC AUTO W DIFF neutrophil% 63.7 % 43-65 Not Available [facility] ([facility]) [address], [place], [address], 02/22/2025 08:44:25 02/23/20 25 02/22/2025 CBC AUTO W DIFF lymphocyte% 26.4 % 20.5-4 5.5 Not Available [facility]) [address] [facility], [place], [address], 02/22/2025 08:44:25 02/23/20 25 02/22/2025 CBC AUTO W DIFF monocyte% 5.9 % 5.5-11 .7 Not Available [facility]) [address] [facility], [place], [address], 02/22/2025 08:44:25 02/23/20 25 02/22/2025 CBC AUTO W DIFF eosinophil% 3.4 % 0.9-2. 9 high Not Available [facility] ([facility]) [address], [place], [address], 02/22/2025 08:44:25 02/23/20 25 02/22/2025 CBC AUTO W DIFF basophil% 0.3 % 0.2-1. 0 Not Available [facility] ([facility]) [address] [place], [address], 02/22/2025 08:44:25 02/23/20 25 02/22/2025 CBC AUTO W DIFF immature granulocytes % 0.3 % 0.0-0. 8 Not Available [facility] ([facility]) [address] [place], [address], 02/22/2025 08:44:25 02/23/20 25 02/22/2025 CBC AUTO W DIFF nucleated red blood cells % 0.0 % Not Available [facility] ([facility]) [address] [place], [address], 02/22/2025 08:44:25 02/23/20 25 02/22/2025 CBC AUTO W DIFF neutrophil# 4.8 K/uL 2.2-4. 8 Not Available [facility]) [address] [place], [address], 02/22/2025 08:44:25 02/23/20 25 02/22/2025 CBC AUTO W DIFF lymphocyte# 2.0 cell/ mcL 1.3-2. 9 Not Available [facility]) [address] [facility], [place], [address], 02/22/2025 08:44:25 02/23/20 25 02/22/2025 CBC AUTO W DIFF monocyte# 0.5 cell/ mcL 0.3-0. 8 Not Available [facility]) [address] [place], [address], 02/22/2025 08:44:25 02/23/20 25 02/22/2025 CBC AUTO W DIFF eosinophil# 0.3 cell/ mcL 0-0.2 high Not Available [facility]) [address] [place], [address], 02/22/2025 08:44:25 02/23/20 25 02/22/2025 CBC AUTO W DIFF basophil# 0.0 cell/ mcL 0.0-1. 0 Not Available [facility]) [address] [place], [address], 02/22/2025 08:44:25 02/23/20 25 02/22/2025 CBC AUTO W DIFF immature gramulocytes # 0.02 K/uL Not Available [facility] ([facility]) [address] [place], [address], 02/22/2025 08:44:25 02/23/20 25 02/22/2025 CBC AUTO W DIFF nucleated red blood cells # 0.00 K/uL Not Available [facility] ([facility]) [address], [place], [address], 02/22/2025 08:44:25 02/23/20 25 02/22/2025 CBC AUTO W DIFF manual differential NO Not Available [facility]) [address], [place], [address], 02/22/2025 08:44:25 02/23/20 25 02/22/2025 COMP METAB OLIC PANEL sodium 140 mmol/ L 136-14 5 Not Available [facility] ([facility]) [address], [place], [address], 02/22/2025 09:03:10 02/23/20 25 02/22/2025 COMP METAB OLIC PANEL potassium 3.7 mmol/ L 3.6-5. 0 Not Available [facility]) [address], [place], [address], 02/22/2025 09:03:10 02/23/20 25 02/22/2025 COMP METAB OLIC PANEL chloride 100 mmol/ L 98-107 Not Available [facility]) [address], [place], [address], 02/22/2025 09:03:10 02/23/20 25 02/22/2025 COMP METAB OLIC PANEL carbon dioxide 33.0 mmol/ L 21.0-3 2.0 high Not Available [facility]) [address], [place], [address], 02/22/2025 09:03:10 02/23/20 25 02/22/2025 COMP METAB OLIC PANEL anion gap 10.7 Not Available [facility] ([facility]) [address], [place], [address], 02/22/2025 09:03:10 02/23/20 25 02/22/2025 COMP METAB OLIC PANEL glucose 143 mg/dL 70-120 high Not Available [facility] ([facility]) [address], [place], [address], 02/22/2025 09:03:10 02/23/20 25 02/22/2025 COMP METAB OLIC PANEL BUN 17 mg/dL 7-18 Not Available [facility] ([facility]) [address], [place], [address], 02/22/2025 09:03:10 02/23/20 25 02/22/2025 COMP METAB OLIC PANEL creatinine 1.2 mg/dL 0.6-1. 3 Not Available [facility]) [address] , [place], [address], 02/22/2025 09:03:10 02/23/20 25 02/22/2025 COMP METAB [...] gilbert ing kiney funct ion. Not Available [facility] ([facility]) [address] , [place], [address], 02/22/2025 09:03:10 02/23/20 25 02/22/2025 COMP METAB OLIC PANEL osmolality (calculated) 295 mOsm/ kg 275-30 1 OSMOL ALITY IS A CALCU LATIO N UTILI ZING THE SERUM /PLAS MA SODIU M, GLUCO SE AND UREA NITRO GEN (BUN) LEVEL S. FOR THE MOST ACCUR ATE RESUL T A MEASU RED SERUM OSMOL ALITY IS TUTU SCHWARTZ. Not Available [facility] ([facility]) [address], [place], [address], 02/22/2025 09:03:10 02/23/20 25 02/22/2025 COMP METAB OLIC PANEL total protein 7.5 g/dL 6.4-8. 2 Not Available [facility]) [address] [facility], [place], [address], 02/22/2025 09:03:10 02/23/20 25 02/22/2025 COMP METAB OLIC PANEL albumin 3.4 g/dL 3.4-5. 0 Not Available [facility]) [address] [facility], [place], [address], 02/22/2025 09:03:10 02/23/20 25 02/22/2025 COMP METAB OLIC PANEL globulin 4.1 Not Available [facility] ([facility]) [address] [facility], [place], [address], 02/22/2025 09:03:10 02/23/20 25 02/22/2025 COMP METAB OLIC PANEL alb/glob ratio 0.8 0.7-2 Not Available [facility] ([facility]) [address] [facility], [place], [address], 02/22/2025 09:03:10 02/23/20 25 02/22/2025 COMP METAB OLIC PANEL calcium 9.3 mg/dL 8.5-10 .5 Not Available [facility]) [address] [place], [address], 02/22/2025 09:03:10 02/23/20 25 02/22/2025 COMP METAB OLIC PANEL bilirubin total 0.70 mg/dL 0.10-1 .00 Not Available [facility]) [address], [place], [address], 02/22/2025 09:03:10 02/23/20 25 02/22/2025 COMP METAB OLIC PANEL AST (SGOT) 15 U/L 0-37 Not Available [facility] ([facility]) [address], [place], [address], 02/22/2025 09:03:10 02/23/20 25 02/22/2025 COMP METAB OLIC PANEL ALT (SGPT) 25 U/L 0-65 Not Available [facility] ([facility]) [address], [place], [address], 02/22/2025 09:03:10 02/23/20 25 02/22/2025 COMP METAB OLIC PANEL alk phosphatase 150 U/L 46-116 high Not Available [facility] ([facility]) [address], [place], [address], 02/22/2025 09:03:10 02/23/20 25 02/22/2025 THYRO ID PANEL W/TSH T3 uptake 33.00 % 24.00- 39.00 Not Available [facility] ([facility]) [address], [place], [address], 02/22/2025 09:03:13 02/23/20 25 02/22/2025 THYRO ID PANEL W/TSH T4 total 7.0 mcg/d L 4.5-12 .1 Not Available [facility]) [address], [place], [address], 02/22/2025 09:03:13 02/23/20 25 02/22/2025 THYRO ID PANEL W/TSH free thyroxine index 2.31 1.60-3 .70 Not Available [facility] ([facility]) [address], [place], [address], 02/22/2025 09:03:13 02/23/20 25 02/22/2025 THYRO ID PANEL W/TSH thyroid stim hormone 2.86 mIU/L 0.36-3 .74 Not Available [facility] ([facility]) [address], [place], [address], 02/22/2025 09:03:13 02/23/20 25 02/23/2025 CORTI GENEVIEVE cortisol 9.0 ug/dL 6.2-19 .4 Pleas e Note: The refer ence inter wen and allan ing for this test is for an AM colle ction . If this is a PM colle ction pleas e use: Corti genevieve PM: 2.3-1 1.9 Perfo rmed at: [facility] [address] [place] [address] Lab Direc tor: Seth chu PhD, Phone : [phone] Not Available [facility] ([facility]) [address], [place], [address], 02/23/2025 08:13:26 04/23/20 25 04/26/2025 PATHO LOGY SPECI MEN pathology specimen SEE LORENZO Squires RPT Not Available [facility] ([facility]) [address], [place], [address], 04/26/2025 14:14:49 05/10/2005/10/2025 CBC AUTO W DIFF WBC 6.8 K/uL 4.0-10 .5 Not Available [facility] ([facility]) [address], [place], [address], 05/10/2025 08:51:25 05/10/20 25 05/10/2025 CBC AUTO W DIFF RBC 4.4 M/mm3 4.7-6. 1 low Not Available [facility] ([facility]) [address], [place], [address], 05/10/2025 08:51:25 05/10/20 25 05/10/2025 CBC AUTO W DIFF HGB 13.5 gm/dL 13.5-1 8.0 Not Available [facility] ([facility]) [address] , [place], [address], 05/10/2025 08:51:25 05/10/20 25 05/10/2025 CBC AUTO W DIFF HCT 41.3 % 42.0-5 2.0 low Not Available [facility] ([facility]) [address] , [place], [address], 05/10/2025 08:51:25 05/10/2005/10/2025 CBC AUTO W DIFF MCV 93.0 fL 78-100 Not Available [facility] ([facility]) [address] , [place], [address], 05/10/2025 08:51:25 05/10/20 25 05/10/2025 CBC AUTO W DIFF MCH 30.4 pg 27-31 Not Available [facility]) [address] , [place], [address], 05/10/2025 08:51:25 05/10/20 25 05/10/2025 CBC AUTO W DIFF MCHC 32.7 g/dL 32-36 Not Available [facility]) [address] [place], [address], 05/10/2025 08:51:25 05/10/2005/10/2025 CBC AUTO W DIFF RDW 14.6 % 11.5-1 4.0 high Not Available [facility]) [address] [place], [address], 05/10/2025 08:51:25 05/10/20 25 05/10/2025 CBC AUTO W DIFF platelet count 189 K/uL 150-45 0 Not Available [facility]) [address] [place], [address], 05/10/2025 08:51:25 05/10/20 25 05/10/2025 CBC AUTO W DIFF MPV 10.3 fL 6-9.5 high Not Available [facility]) [address], [place], [address], 05/10/2025 08:51:25 05/10/20 25 05/10/2025 CBC AUTO W DIFF neutrophil% 66.9 % 43-65 high Not Available [facility] ([facility]) [address], [place], [address], 05/10/2025 08:51:25 05/10/20 25 05/10/2025 CBC AUTO W DIFF lymphocyte% 23.8 % 20.5-4 5.5 Not Available [facility]) [address] [place], [address], 05/10/2025 08:51:25 05/10/20 25 05/10/2025 CBC AUTO W DIFF monocyte% 5.6 % 5.5-11 .7 Not Available [facility]) [address] [place], [address], 05/10/2025 08:51:25 05/10/20 25 05/10/2025 CBC AUTO W DIFF eosinophil% 3.0 % 0.9-2. 9 high Not Available [facility]) [address] [place], [address], 05/10/2025 08:51:25 05/10/20 25 05/10/2025 CBC AUTO W DIFF basophil% 0.4 % 0.2-1. 0 Not Available [facility]) [address] [place], [address], 05/10/2025 08:51:25 05/10/20 25 05/10/2025 CBC AUTO W DIFF immature granulocytes % 0.3 % 0.0-0. 8 Not Available [facility] ([facility]) [address], [place], [address], 05/10/2025 08:51:25 05/10/20 25 05/10/2025 CBC AUTO W DIFF nucleated red blood cells % 0.0 % Not Available [facility] ([facility]) [address], [place], [address], 05/10/2025 08:51:25 05/10/20 25 05/10/2025 CBC AUTO W DIFF neutrophil# 4.5 K/uL 2.2-4. 8 Not Available [facility]) [address] [facility], [place], [address], 05/10/2025 08:51:25 05/10/20 25 05/10/2025 CBC AUTO W DIFF lymphocyte# 1.6 cell/ mcL 1.3-2. 9 Not Available [facility] ([facility]) [address], [place], [address], 05/10/2025 08:51:25 05/10/20 25 05/10/2025 CBC AUTO W DIFF monocyte# 0.4 cell/ mcL 0.3-0. 8 Not Available [facility]) [address] [facility], [place], [address], 05/10/2025 08:51:25 05/10/20 25 05/10/2025 CBC AUTO W DIFF eosinophil# 0.2 cell/ mcL 0-0.2 Not Available [facility]) [address] [place], [address], 05/10/2025 08:51:25 05/10/20 25 05/10/2025 CBC AUTO W DIFF basophil# 0.0 cell/ mcL 0.0-1. 0 Not Available [facility] ([facility]) [address] [place], [address], 05/10/2025 08:51:25 05/10/20 25 05/10/2025 CBC AUTO W DIFF immature gramulocytes # 0.02 K/uL Not Available [facility] ([facility]) [address], [place], [address], 05/10/2025 08:51:25 05/10/20 25 05/10/2025 CBC AUTO W DIFF nucleated red blood cells # 0.00 K/uL Not Available [facility] ([facility]) [address] , [place], [address], 05/10/2025 08:51:25 05/10/2005/10/2025 CBC AUTO W DIFF manual differential NO Not Available [facility] ([facility]) [address] , [place], [address], 05/10/2025 08:51:25 05/10/20 25 05/10/2025 COMP METAB OLIC PANEL sodium 137 mmol/ L 136-14 5 Not Available [facility] ([facility]) [address], [place], [address], 05/10/2025 09:31:57 05/10/20 25 05/10/2025 COMP METAB OLIC PANEL potassium 3.6 mmol/ L 3.6-5. 0 Not Available [facility] ([facility]) [address] , [place], [address], 05/10/2025 09:31:57 05/10/20 25 05/10/2025 COMP METAB OLIC PANEL chloride 99 mmol/ L 98-107 Not Available [facility] ([facility]) [address], [place], [address], 05/10/2025 09:31:57 05/10/20 25 05/10/2025 COMP METAB OLIC PANEL carbon dioxide 27.4 mmol/ L 21.0-3 2.0 Not Available [facility] ([facility]) [address] , [place], [address], 05/10/2025 09:31:57 05/10/2005/10/2025 COMP METAB OLIC PANEL anion gap 14.2 Not Available [facility] ([facility]) [address], [place], [address], 05/10/2025 09:31:57 05/10/20 25 05/10/2025 COMP METAB OLIC PANEL glucose 107 mg/dL 70-120 Not Available [facility] ([facility]) [address], [place], [address], 05/10/2025 09:31:57 05/10/20 25 05/10/2025 COMP METAB OLIC PANEL BUN 11 mg/dL 7-18 Not Available [facility] ([facility]) [address] , [place], [address], 05/10/2025 09:31:57 05/10/20 25 05/10/2025 COMP METAB OLIC PANEL creatinine 1.0 mg/dL 0.6-1. 3 Not Available [facility] ([facility]) [address] , [place], [address], 05/10/2025 09:31:57 05/10/2005/10/2025 COMP METAB OLIC PANEL [...] gilbert ing kiney funct ion. Not Available [facility] ([facility]) [address] , [place], [address], 05/10/2025 09:31:57 05/10/20 25 05/10/2025 COMP METAB OLIC PANEL osmolality (calculated) 285 mOsm/ kg 275-30 1 OSMOL ALITY IS A CALCU LATIO N UTILI ZING THE SERUM /PLAS MA SODIU M, GLUCO SE AND UREA NITRO GEN (BUN) LEVEL S. FOR THE MOST ACCUR ATE RESUL T A MEASU RED SERUM OSMOL ALITY IS SUGLINDA UNDERWOODD. Not Available [facility] ([facility]) [address], [place], [address], 05/10/2025 09:31:57 05/10/20 25 05/10/2025 COMP METAB OLIC PANEL total protein 7.5 g/dL 6.4-8. 2 Not Available [facility]) [address] [facility], [place], [address], 05/10/2025 09:31:57 05/10/20 25 05/10/2025 COMP METAB OLIC PANEL albumin 3.5 g/dL 3.4-5. 0 Not Available [facility] ([facility]) [address] , [place], [address], 05/10/2025 09:31:57 05/10/20 25 05/10/2025 COMP METAB OLIC PANEL globulin 4.0 Not Available [facility] ([facility]) [address] , [place], [address], 05/10/2025 09:31:57 05/10/20 25 05/10/2025 COMP METAB OLIC PANEL alb/glob ratio 0.9 0.7-2 Not Available [facility] ([facility]) [address] [place], [address], 05/10/2025 09:31:57 05/10/20 25 05/10/2025 COMP METAB OLIC PANEL calcium 9.4 mg/dL 8.5-10 .5 Not Available [facility] ([facility]) [address] [facility] [place], [address], 05/10/2025 09:31:57 05/10/20 25 05/10/2025 COMP METAB OLIC PANEL bilirubin total 0.60 mg/dL 0.10-1 .00 Not Available [facility] ([facility]) [address], [place], [address], 05/10/2025 09:31:57 05/10/20 25 05/10/2025 COMP METAB OLIC PANEL AST (SGOT) 12 U/L 0-37 Not Available [facility] ([facility]) [address], [place], [address], 05/10/2025 09:31:57 05/10/20 25 05/10/2025 COMP METAB OLIC PANEL ALT (SGPT) 14 U/L 0-65 Not Available [facility] ([facility]) [address], [place], [address], 05/10/2025 09:31:57 05/10/20 25 05/10/2025 COMP METAB OLIC PANEL alk phosphatase 128 U/L 46-116 high Not Available [facility] ([facility]) [address], [place], [address], 05/10/2025 09:31:57 05/10/20 25 05/10/2025 THYRO ID PANEL W/TSH T3 uptake 36.00 % 24.00- 39.00 Not Available [facility] ([facility]) [address], [place], [address], 05/10/2025 09:31:59 05/10/2005/10/2025 THYRO ID PANEL W/TSH T4 total 7.1 mcg/d L 4.5-12 .1 Not Available [facility] ([facility]) [address], [place], [address], 05/10/2025 09:31:59 07/10/05/10/2025 THYRO ID PANEL W/TSH free thyroxine index 2.56 1.60-3 .70 Not Available [facility] ([facility]) [address], [place], [address], 05/10/2025 09:31:59 05/10/20 25 05/10/2025 THYRO ID PANEL W/TSH thyroid stim hormone 1.29 mIU/L 0.36-3 .74 Not Available [facility] ([facility]) [address], [place], [address], 05/10/2025 09:31:59 05/10/20 25 05/11/2025 CORTI GENEVIEVE cortisol 11.3 ug/dL 6.2-19 .4 Pleas e Note: The refer ence inter wen and allan ing for this test is for an AM colle ction . If this is a PM colle ction pleas e use: Corti genevieve PM: 2.3-1 1.9 Perfo rmed at: [facility] [address] [place], [place] [id number] [facility] Lab Direc tor: Seth chu PhD, Phone : [phone] Not Available [facility] ([facility]) [address], [place], [address], 05/11/2025 13:12:13 01/18/20 25 12/25/2024 CT, abdom en + pelvi s, w/ contr ast No observ ation record ed. [email or web address] [facility] ([facility]) [address], [place], [address], 01/25/2025 08:38:15 03/05/20 25 03/05/2025 CT, chest , w/ contr ast [facility] [address] [place] [address] Phone: Fax: Name: SUSANNAH KIM Exam Date: 03/05/20 25 : 1944 Age 79 years Gender : M Access ion: [id number] Physic cindy: SHELLI MCGOVERN Facili ty: [facility] Facili ty HSV: Outpat ient Exam: CT [...] upper lobe anteri deangelo and in the appliance mechanic ior medial left upper lobe. Linear atelec [...] ies in the right upper lobe and appliance mechanic ior left upper lobe charac terist ic [...] is stable measur ing 2.7 cm in [facility]. The stomac h and small [...] you for referr ing SUSANNAH KIM to [facility] de. Legall y authen ticate d by BROOKE Michel 03-05 09:39: 13 CC'ed Logic: Orderi ng Provid er: ELISEO MCCANN Attend ing Provid er: ELISEO MCCANN Referr ing Provid er: ELISEO MCCANN Admitt ing Provid er: ELISEO MCCANN [email or web address] [facility] [address] [facility], [place], [address], 03/07/2025 11:08:17 03/05/2003/05/2025 CT, abdom en + pelvi s, w[facility] [address] [place] [address] Phone: Fax: Name: SUSANNAH KIM Exam Date: 03/05/20 : 1944 Age 79 years Gender : M Access ion: [id number] Physic cindy: SHELLI MCGOVERN Facili ty: [facility] Facili ty HSV: Outpat ient Exam: CT [...] upper lobe anteri deangelo and in the appliance mechanic ior medial left upper lobe. Linear atelec [...] ies in the right upper lobe and appliance mechanic ior left upper lobe charac terist ic [...] is stable measur ing 2.7 cm in [facility]. The stomac h and small [...] you for referr ing SUSANNAH KIM to [facility]. Legall y authen ticate d by BROOKE Michel 03-05 09:38: 58 CC'ed Logic: Orderi ng Provid er: ELISEO MCCANN Attend ing Provid er: ELISEO MCCANN Referr ing Provid er: ELISEO MCCANN Admitt ing Provid er: ELISEO MCCANN [email or web address] [facility] [address] [facility], [place], [address], 03/07/2025 11:08:17 03/07/20 25 03/05/2025 CT, neck, soft tissu e, w/ contr ast [facility] [address] [place] [address] Phone: Fax: Name: SUSANNAH KIM Exam Date: 03/05/20 : 1944 Age 79 years Gender : M Access ion: [id number] Physic cindy: SHELLI MCGOVERN Facili ty: [facility] Facili ty HSV: Outpat ient Exam: [...] you for referr ing SUSANNAH KIM to [facility] al. Legall y authen ticate d by ROEL GALEANA 03-05 09:38: 47 CC'ed Logic: Orderi ng Provid er: ELISEO MCCANN Attend ing Provid er: ELISEO MCCANN Referr ing Provid er: ELISEO MCCANN Admitt ing Provid er: ELISEO MCCANN [email or web address] [facility] [address] [place] [address], [address], 03/07/2025 11:07:53 04/06/2004/06/2025 CT, neck, soft tissu e, w/ [facility] [address] [place] [address] Phone: Fax: Name: SUSANNAH KIM Exam Date: 04/06/20 : 1944 Age 79 years Gender : M Access ion: [id number] Physic cindy: MEGAN SPRINGER Facili ty: [facility] Facili ty HSV: Outpat ient Exam: CT [...] than right with extens ion along the appliance mechanic ior aspect of the larynx across midlin [...] suprag lottic larynx extend ing across the appliance mechanic ior midlin e consis tent with the [...] GUZMAN Admitt ing Provid er: RACHEAL GUZMAN [email or web address] [facility] [address] [facility], [place], [address], 04/09/2025 11:24:10 04/23/20 25 04/23/2025 US fna w/valerie ge [facility] [address] [place] [address] Phone: Fax: Name: SUSANNAH KIM Exam Date: 025 : 1944 Age 79 years Gender : M Access ion: [id number] Physic cindy: MEGAN SPRINGER Facili ty: [facility] Facili ty HSV: Outpat ient Exam: US FNA W/IMAG E ULTRAS OUND GUIDED Biopsy of left paroti d gland. Perfor med by: Guero squires HOGSHEAD MAT ASSEMBLER, FORENSIC SPECIALIST-C. Attend ing physic cindy: Dr. Korey murillo MD. 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 TECHNI QUE/MT OCEDUR E: Fully inform ed writte n [...] loss. They were return ed to the [facility] area in satisf actory condit ion. IMPRES [...] GUZMAN Admitt ing Provid er: RACHEAL GUZMAN [email or web address] [facility] [address] [place] [address], [place], [address], 04/23/2025 11:48:22 05/10/20 25 04/13/2025 CT, chest , w/o contr ast No observ ation record ed. [email or web address] [facility] ([facility] Record) [address], [place], [address], 05/14/2025 10:34:55 Result Notes Documentation Provider Name and Address Organization Details Recorded Time Ct, Chest, W/ Contrast : [facility] [address] [place] [address] Name: ANN MARIE FELIPE Exam Date: 03/05/2025 : 1945 Age 79 years Gender: M Physician: SHELLI HARRIS Facility: [facility] Facility HSV: Outpatient Exam: CT CHEST W [...] Thank you for referring KORYAngelikaANN MARIE to [facility]. Legally authenticated by BROOKE Michel 2025-03-05 09:39:13 CC'ed Logic: Ordering Provider: KIMBERLY MCCANN Attending Provider: KIMBERLY MCCANN Referring Provider: KIMBERLY MCCANN Admitting Provider: KIMBERLY Funes [facility] [place] 03/07/2025 11:08:17 Ct, Abdomen + Pelvis, W/ Contrast : [facility] [id number] [place] [address] Name: ANN MARIE FELIPE Exam Date: 03/05/2025 : 1945 Age 79 years Gender: M Physician: SHELLI HARRIS Facility: [facility] Facility HSV: Outpatient Exam: CT ABD PEL [...] Gualberto Peters MD 03/05/2025 12:08 PM EDT RP Dictated By: Gualberto Peters Transcribed By: Transcribed On: 03/05/2025 9:38 AM Electronically signed by: Gualberto Peters 03/05/2025 Thank you for referring ANN MARIE FELIPE to [facility]. Legally authenticated by BROOKE Michel 2025-03-05 09:38:58 CC'ed Logic: Ordering Provider: KIMBERLY MCCANN Attending Provider: KIMBERLY MCCANN Referring Provider: KIMBERLY MCCANN Admitting Provider: PATRICK Yang [facility] - [place] [facility] [place] 03/07/2025 11:08:17 Ct, Neck, Soft Tissue, W/ Contrast : [address] [address] Name: ANN MARIE FELIPE Exam Date: 03/05/2025 : 1945 Age 79 years Gender: M Physician: SHELLI HARRIS Facility: [facility] Facility HSV: Outpatient Exam: CT NECK SOFT [...] you for [facility]. Legally authenticated by ROEL GALEANA 2025-03-05 09:38:47 CC'ed Logic: Ordering Provider: KIMBERLY MCCANN Attending Provider: KIMBERLY MCCANN Referring Provider: KIMBERLY MCCANN Admitting Provider: KIMBERLY Springer [facility] 03/07/2025 11:07:53 Ct, Neck, Soft Tissue, W/ Contrast : [id number] [place] [address] Name: ANN MARIE FELIPE Exam Date: 04/06/2025 : 1945 Age 79 years Gender: M Physician: MEGAN SPRINGER Facility: [facility] Facility HSV: Outpatient Exam: CT NECK SOFT [...] you for referring [facility]. Legally authenticated by ELIZABETH Musa 2025-04-06 15:08:58 CC'ed Logic: Ordering Provider: RACHEAL GUZMAN Attending Provider: RACHEAL GUZMAN Referring Provider: RACHEAL GUZMAN Admitting Provider: PATRICK Webber [facility] & [place] 04/09/2025 11:24:10 Procedures Surgical History Date Name Laterality Status Provider Name and Address Organization Details Recorded Time open heart surgery completed Janeth Monica NGUYEN - [facility] & [place] 02/14/2024 09:56:24 operative procedure on knee completed Kristine NGUYEN - [facility] & [place] 04/05/2024 13:20:11 Imaging Results None recorded. Procedure Notes None recorded. Medical Equipment None Reported. Allergies Allergen ID Allergen Name Allergen Category Reaction Reaction Severity Criticality Documentation Date Start Date Code Code System Note Provider Name and Address Organization Details Recorded Time 844006 Product containin g penicilli n (product) medicatio n hives Not available Not available 02/06/2025 36101 8001 SNOMED Jackie [facility] [place] - [facility] - [place] & [place] 5 08:40:08 Medications Name Sig Start Date [...] Not Available Not Available No t Available [facility]- [facility]. Springer active Not [...] Updated DateTime 5 180.34 cm 23.8 kg/m2 30985.1 4 g 97.9 [degF] 95 % 95 % 70 /min 18 /min 120/63 mm[Hg] Janeth Anderson [facility] & [place] 5 09:18:24 Date Recorded Body height Body mass index (BMI) Body weight Heart rate Oxygen saturation Oxygen saturation in Arterial blood by Pulse oximetry Body temperature Systolic And Diastolic Provider Name and Address Organization Details Last Updated DateTime 5 180.34 cm 23.8 kg/m2 16922.8 6 g 70 /min 100 % 100 % 98.2 [degF] 110/60 mm[Hg] Jackie Roldan [facility] & [place] 5 08:42:53 Date Recorded Body height Body mass index (BMI) Body weight Body temperature Oxygen saturation Oxygen saturation in Arterial blood by Pulse oximetry Heart rate Systolic And Diastolic Provider Name and Address Organization Details Last Updated DateTime 5 180.34 cm 23.8 kg/m2 07347.5 8 g 97.8 [degF] 94 % 94 % 70 /min 100/59 mm[Hg] Gonzalo Mendes [facility] & [place] 5 08:19:37 Date Recorded Body height Body temperature Oxygen saturation Oxygen saturation in Arterial blood by Pulse oximetry Heart rate Systolic And Diastolic Provider Name and Address Organization Details Last Updated DateTime 5 180.34 cm 97.6 [degF] 96 % 96 % 70 /min 102/64 mm[Hg] Kristine Gipson [facility] & [place] 5 08:13:31 Date Recorded Body height Body mass index (BMI) Body weight Body temperature Oxygen saturation Oxygen saturation in Arterial blood by Pulse oximetry Heart rate Respiratory rate Systolic And Diastolic Provider Name and Address Organization Details Last Updated DateTime 5 180.34 cm 23.8 kg/m2 33029.9 4 g 98 [degF] 94 % 94 % 71 /min 18 /min 115/59 mm[Hg] Janeth ADHIKARI [facility] & [place] 5 09:34:33 Social History Question Answer Notes LastModified by Organiz[employer]oster[employer] ion Details LastModified Time Tobacco Smoking Status Current Every Day Smoker PATRICK Fernandez [facility] & [place] 02/14/2024 09:56:11 What Is Your Level Of Caffeine Consumption? Occasional [email or web address] Information not available 04/05/2024 What Was The Date Of Your Most Recent Tobacco Screening? 04/05/2024 [email or web address] Information not available 04/05/2024 At What Age Did You Start Smoking Tobacco? 8 [email or web address] Information not available 02/14/2024 How Much Tobacco Do You Smoke? 1 PPD Information not available 02/14/2024 How Many Years Have You Smoked Tobacco? 69 [email or web address] Information not available 02/14/2024 Sex: Unknown Functional Status Question Answer Note LastModified by Anes[employer]Rooster[employer] ion Details LastModified Time Do you use any illicit or recreational drugs? No [email or web address] Information not available 02/14/2024 Do you or have you ever used any other forms of tobacco or nicotine? No [email or web address] Information not available 04/05/2024 What is your level of alcohol consumption? None [email or web address] Information not available 02/14/2024 Mental Status None recorded. Family History Nothing Reported. Medical History No medical history recorded. Immunizations Vaccine Type Date Status Note Provider Nam e and Address Organization Details Recorded Time COVID-19 vaccine, vector-nr, rS-Ad26, PF, 0.5 mL 1 completed Kristine price PATRICK ADHIKARI [facility] & [place] 04/05/2024 13:16:44 Influenza, split virus, trivalent, preservative 9 completed Kristine price PATRICK Kristina ADHIKARI [facility] & [place] 04/05/2024 13:16:44 Past Encounters Encounter ID Performer Location Encounter Start Date Encounter Closed Date Diagnosis/Indication Diagnosis SNOMED-CT Code Diagnosis ICD10 Code Diagnosis IMO Codes Diagnosis Note [id number] Megan Springer MD [facility] [address] [facility] [address] [place] [address] 02/14/2024 09:33:39 02/14/2024 10:42:52 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 Will request P 16 results from [facility]. Discussed additional testing with on peripheral blood tempus testing. Will follow-up for any signs of mutational status. Metastatic malignant neoplasm to lung 72803217 C78.01 PET scan performed on December 22, [...] cm with no significan t uptake. Nausea 079998795 R11.0 as needed zofran and phenergren called in. [id number] Shelli Harris PA-C [facility] [address] [place] [address] 04/05/2024 13:12:21 04/05/2024 13:54:16 Squamous cell carcinoma of larynx 542156466 C32.9 CT scan on November 24, 2023 [...] response. Will request P 16 results from [facility]. Discussed additional testing with on peripheral blood tempus testing. Will follow-up for any signs of mutational status. Patient returns on April 05, 2024. Patient will receive cycle 1 of Keytruda today. Immunother apy education performed before treatment was started. Will follow up tolerabili ty Metastatic malignant neoplasm to lung 94652458 C78.01 PET scan performed on December 22, [...] cm with no significan t uptake. Nausea 866381212 R11.0 as needed zofran and phenergren called in. Immunological therapy 76 604553 Z51.12 Cycle 1 of Keytruda on April 05, 2024. 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 Will request P 16 results from [facility]. Discussed additional testing with on peripheral blood [...] of Keytruda. Metastatic malignant neoplasm to lung 29367321 C78.01 PET scan performed on December 22, [...] cm with no significan t uptake. Nausea 177340891 R11.0 as needed zofran and phenergren called in. Immunological therapy 76 433601 Z51.12 Cycle 1 of Keytruda on April 05, 2024.Cycle 2 of Keytruda on April 27, 2024. [id number] Shelli Harris PA-C [facility] [address] [place] [address] 05/18/2024 08:33:38 05/18/2024 08:42:33 Squamous cell carcinoma of larynx 848110251 C32.9 CT scan on November 24, 2023 [...] response. Will request P 16 results from [facility]. Discussed additional testing with on peripheral blood [...] up labs. 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 Nausea 959778907 R11.0 as needed zofran and phenergren called in. Immunological therapy 76 902637 Z51.12 Cycle 1 of Keytruda on April 05, 2024.Cycle 2 of Keytruda on April 27, 2024.Cycle 3 of Keytruda on May 18, 2024. Fatigue 42041549 R53.83 Patient has had some fatigue. Denies any additional changes. Will follow up labs. [id number] Shelli Harris PA-C [facility] [address] [place] [address] 06/08/2024 09:00:56 06/08/2024 09:26:16 Squamous cell carcinoma of larynx 892568325 C32.9 CT scan on November 24, 2023 [...] response. Will request P 16 results from [facility]. Discussed additional testing with on peripheral blood [...] up labs. Metastatic malignant neoplasm to lung 21867538 C78.01 PET scan performed on December 22, [...] cm with no significan t uptake. Nausea 525687045 R11.0 as needed zofran and phenergren called in. Immunological therapy 76 792166 Z51.12 Cycle 1 of Keytruda on April 05, 2024.Cycle 2 of Keytruda on April 27, 2024.Cycle 3 of Keytruda on May 18, 2024.Cycle 4 of Keytruda on June 08, 2024. Fatigue 57868931 R53.83 Patient has had some fatigue. Denies any additional changes. Will follow up labs. [id number] Shelli Harris PA-C [facility] [address] [place] [address] 06/29/2024 08:44:43 06/29/2024 09:19:14 Squamous cell carcinoma of larynx 751116984 C32.9 CT scan on November 24, 2023 [...] response. Will request P 16 results from [facility]. Discussed additional testing with on peripheral blood [...] up labs. Metastatic malignant neoplasm to lung 74138271 C78.01 PET scan performed on December 22, [...] cm with no significan t uptake. Nausea 333583069 R11.0 as needed zofran and phenergren called in. Immunological therapy 76 814140 Z51.12 Cycle 1 of Keytruda on April 05, 2024.Cycle 2 of Keytruda on April 27, 2024.Cycle 3 of Keytruda on May 18, 2024.Cycle 4 of Keytruda on June 08, 2024.Cycle 5 of Keytruda on June 29, 2024. Hypomagnesemia 760457670 E83.42 Labs on June 08, 2024 with magnesium low 1.6. Will follow-up labs today Constipation 12513624 K5 9.00 Patient has had some constipati on. Will send prescripti on for MiraLax. Cobalamin deficiency 190 498546 E53.8 History of vitamin B12 deficiency . He is currently receiving monthly vitamin B12. Labs on June 08, 2024 with vitamin B12 normal at 426. Normal folic acid [id number] Shelli Harris PA-C [facility] [address] [place] [address] 07/21/2024 09:56:03 07/21/2024 10:34:40 Squamous cell carcinoma of larynx 222940015 C32.9 CT scan on November 24, 2023 [...] response. Will request P 16 results from [facility]. Discussed additional testing with on peripheral blood [...] up labs. Metastatic malignant neoplasm to lung 05739061 C78.01 PET scan performed on December 22, [...] cm with no significan t uptake. Nausea 410527348 R11.0 as needed zofran and phenergren called in. Immunological therapy 76 714713 Z51.12 Cycle 1 of Keytruda on April 05, 2024.Cycle 2 of Keytruda on April 27, 2024.Cycle 3 of Keytruda on May 18, 2024.Cycle 4 of Keytruda on June 08, 2024.Cycle 5 of Keytruda on June 29, 2024.Cycle 6 of Keytruda on July 21, 2024. Hypomagnesemia 374371576 E83.42 Labs on June 08, 2024 with magnesium low 1.6. Will follow-up labs today Constipation 07779521 K5 9.00 Patient has had some constipati on. Will send prescripti on for MiraLax. Cobalamin deficiency 190 043440 E53.8 History of vitamin B12 deficiency . He is currently receiving monthly vitamin B12. Labs on June 08, 2024 with vitamin B12 normal at 426. Normal folic acid [id number] Shelli Harris PA-C [facility] [address] [place] [address] 08/10/2024 08:33:53 08/10/2024 09:31:13 Squamous cell carcinoma of larynx 075318010 C32.9 CT scan on November 24, 2023 [...] response. Will request P 16 results from [facility]. Discussed additional testing with on peripheral blood [...] up labs. Metastatic malignant neoplasm to lung 68821570 C78.01 PET scan performed on December 22, [...] cm with no significan t uptake. Nausea 194674494 R11.0 as needed zofran and phenergren called in. Immunological therapy 76 787511 Z51.12 Cycle 1 of Keytruda on April 05, 2024.Cycle 2 of Keytruda on April 27, 2024.Cycle 3 of Keytruda on May 18, 2024.Cycle 4 of Keytruda on June 08, 2024.Cycle 5 of Keytruda on June 29, 2024.Cycle 6 of Keytruda on July 21, 2024.Cycle 7 of Keytruda on August 10, 2024. Hypomagnesemia 888125582 E83.42 Labs on June 08, 2024 with magnesium low 1.6. Will follow-up labs today Constipation 68969124 K5 9.00 Patient has had some constipati on. Will send prescripti on for MiraLax. Cobalamin deficiency 190 382446 E53.8 History of vitamin B12 deficiency . He is currently receiving monthly vitamin B12. Labs on June 08, 2024 with vitamin B12 normal at 426. Normal folic acid Pruritic rash 69375383 L 28.2 Patient returns on August 10 [...] oral steroids if needed. Will follow up. [id number] Megan Springer MD [facility] [address] [facility] [address] [place] [address] 08/30/2024 08:35:40 08/30/2024 10:02:02 Squamous cell carcinoma of larynx 520532151 C32.9 CT scan on November 24, 2023 [...] response. Will request P 16 results from [facility]. Discussed additional testing with on peripheral blood [...] labs today. Metastatic malignant neoplasm to lung 07127406 C78.01 PET scan performed on December 22, [...] cm with no significan t uptake. Nausea 304063249 R11.0 as needed zofran and phenergren called in. Immunological therapy 76 685124 Z51.12 Cycle 1 of Keytruda on April 05, 2024.Cycle 2 of Keytruda on April 27, 2024.Cycle 3 of Keytruda on May 18, 2024.Cycle 4 of Keytruda on June 08, 2024.Cycle 5 of Keytruda on June 29, 2024.Cycle 6 of Keytruda on July 21, 2024.Cycle 7 of Keytruda on August 10, 2024.Cycle 8 of Keytruda on August 30, 2024. Hypomagnesemia 499591806 E83.42 Labs on June 08, 2024 with magnesium low 1.6. Will follow-up labs today Constipation 11176688 K5 9.00 Patient has had some constipati on. Will send prescripti on for MiraLax. Cobalamin deficiency 190 617905 E53.8 History of vitamin B12 deficiency . He is currently receiving monthly vitamin B12. Labs on June 08, 2024 with vitamin B12 normal at 426. Normal folic acid Gastrostom y tube in situ 406754752 Z93.1 Patient interested in possible removal of PEG tube. Discussed potential PEG button placement and will follow-up nutrition needs. [id number] Megan Springer MD [facility] [address] [place] [address] 09/20/2024 08:44:41 09/20/2024 10:32:15 Squamous cell carcinoma of larynx 253532507 C32.9 CT scan on November 24, 2023 [...] response. Will request P 16 results from [facility]. Discussed additional testing with on peripheral blood [...] pulmonary medicine. Metastatic malignant neoplasm to lung 66950931 C78.01 PET scan performed on December 22, [...] cm with no significan t uptake. Nausea 183844717 R11.0 as needed zofran and phenergren called in. Immunological therapy 76 322696 Z51.12 Cycle 1 of Keytruda on April [...] of Keytruda on September 20, 2024. Hypomagnesemia 381621923 E83.42 Labs on June 08, 2024 with magnesium low 1.6. Will follow-up labs today Constipation 76374784 K5 9.00 Patient has had some constipati on. Will send prescripti on for MiraLax. Cobalamin deficiency 190 024924 E53.8 History of vitamin B12 deficiency . He is currently receiving monthly vitamin B12. Labs on June 08, 2024 with vitamin B12 normal at 426. Normal folic acid Gastrostom y tube in situ 132310764 Z93.1 Patient interested in possible removal of PEG tube. Discussed potential PEG button placement and will follow-up nutrition needs. [id number] Megan Springer MD [facility] [address] [place] [address] 10/11/2024 08:27:14 10/11/2024 09:12:55 Squamous cell carcinoma of larynx 796823192 C32.9 CT scan on November 24, 2023 [...] response. Will request P 16 results from [facility]. Discussed additional testing with on peripheral blood [...] November 2023. Metastatic malignant neoplasm to lung 19542701 C78.01 PET scan performed on December 22, [...] cm with no significan t uptake. Nausea 900278576 R11.0 as needed zofran and phenergren called in. Immunological therapy 76 237850 Z51.12 Cycle 1 of Keytruda on April [...] of Keytruda on October 11, 2024. Hypomagnesemia 793316782 E83.42 Labs on June 08, 2024 with magnesium low 1.6. Will follow-up labs today Constipation 00697535 K5 9.00 Patient has had some constipati on. Will send prescripti on for MiraLax. Cobalamin deficiency 190 779579 E53.8 History of vitamin B12 deficiency . He is currently receiving monthly vitamin B12. Labs on June 08, 2024 with vitamin B12 normal at 426. Normal folic acid Gastrostom y tube in situ 605286721 Z93.1 Patient interested in possible removal of PEG tube. Discussed potential PEG button placement and will follow-up nutrition needs. [id number] Shelli Harris PA-C [facility] [address] [facility] [address] [place] [address] 11/02/2024 09:32:09 11/02/2024 09:52:54 Squamous cell carcinoma of larynx 088341834 C32.9 CT scan on November 24, 2023 [...] response. Will request P 16 results from [facility]. Discussed additional testing with on peripheral blood [...] tube removal. Metastatic malignant neoplasm to lung 78212945 C78.01 PET scan performed on December 22, [...] cm with no significan t uptake. Nausea 673726998 R11.0 as needed zofran and phenergren called in. Immunological therapy 76 492159 Z51.12 Cycle 1 of Keytruda on April [...] of Keytruda on November 02, 2024. Hypomagnesemia 737735367 E83.42 Labs on June 08, 2024 with magnesium low 1.6. Will follow-up labs today Constipation 66578857 K5 9.00 Patient has had some constipati on. Will send prescripti on for MiraLax. Cobalamin deficiency 190 413810 E53.8 History of vitamin B12 deficiency . He is currently receiving monthly vitamin B12. Labs on June 08, 2024 with vitamin B12 normal at 426. Normal folic acid Gastrostom y tube in situ 470157545 Z93.1 Patient interested in possible removal of PEG tube. Discussed potential PEG button placement and will follow-up nutrition needs. [id number] Shelli Harris PA-C [facility] [address] [place] [address] 11/23/2024 08:39:33 11/23/2024 08:40:07 Squamous cell carcinoma of larynx 133273240 C32.9 CT scan on November 24, 2023 [...] response. Will request P 16 results from [facility]. Discussed additional testing with on peripheral blood [...] follow up. Metastatic malignant neoplasm to lung 28973692 C78.01 PET scan performed on December 22, [...] cm with no significan t uptake. Nausea 010148645 R11.0 He has needed zofran and phenergren prescribed . Immunological therapy 76 263983 Z51.12 Cycle 1 of Keytruda on April [...] of Keytruda on November 22, 2024. Hypomagnesemia 740051842 E83.42 Labs on June 08, 2024 with magnesium low 1.6. Will follow-up labs today Constipation 62344855 K5 9.00 Patient has had some constipati on. Prescripti on sent for MiraLax. Cobalamin deficiency 190 124680 E53.8 History of vitamin B12 deficiency . He is currently receiving monthly vitamin B12. Labs on June 08, 2024 with vitamin B12 normal at 426. Normal folic acid Gastrostom y tube in situ 662440716 Z93.1 Patient interested in possible removal of PEG tube. Discussed potential PEG button placement and will follow-up nutrition needs. He is scheduled to have his feeding tube removed as he is eating without trouble and has not used his feeding tube in at least 2-3 months. Severe dry skin 09399948 2 L85.3 Patient returns November 23, 2024. He does have dry pruritic skin. No rash. Discussed using moisturize r with Aquaphor and Aveeno body wash. Will follow-up. [id number] Shelli Harris PA-C [facility] [address] [place] [address] 12/14/2024 08:16:04 12/14/2024 09:03:13 Squamous cell carcinoma of larynx 386647825 C32.9 CT scan on November 24, 2023 [...] response. Will request P 16 results from [facility]. Discussed additional testing with on peripheral blood [...] progressio n. Metastatic malignant neoplasm to lung 30737526 C78.01 PET scan performed on December 22, [...] no significan t uptake. Immunological therapy 76 214857 Z51.12 Cycle 1 of Keytruda on April [...] 2024 due to elevated liver enzymes. Hypomagnesemia 657099477 E83.42 Labs on June 08, 2024 with magnesium low 1.6. Will follow-up labs today Constipation 69050128 K5 9.00 Patient has had some constipati on. Prescripti on sent for MiraLax. Cobalamin deficiency 190 548431 E53.8 History of vitamin B12 deficiency . He is currently receiving monthly vitamin B12. Labs on June 08, 2024 with vitamin B12 normal at 426. Normal folic acid Gastrostom y tube in situ 231958700 Z93.1 Patient interested in possible removal of PEG tube. Discussed potential PEG button placement and will follow-up nutrition needs. He is scheduled to have his feeding tube removed as he is eating without trouble and has not used his feeding tube in at least 2-3 months. Severe dry skin 09976389 2 L85.3 Patient returns November 23, 2024. [...] Liver enzy mes level above reference range 353799978 R74.01 Patient returns December 14, 2024. He [...] and hopefully resume Keytruda at that time. [id number] Shelli Harris PA-C [facility] [address] [place] [address] 12/21/2024 08:19:27 12/21/2024 09:11:07 Squamous cell carcinoma of larynx 909182580 C32.9 CT scan on November 24, 2023 [...] response. Will request P 16 results from [facility]. Discussed additional testing with on peripheral blood [...] progressio n. Metastatic malignant neoplasm to lung 95591971 C78.01 PET scan performed on December 22, [...] no significan t uptake. Immunological therapy 76 582402 Z51.12 Cycle 1 of Keytruda on April [...] on Keytruda on December 21, 2024. Hypomagnesemia 371999584 E83.42 Labs on June 08, 2024 with magnesium low 1.6. Will follow-up labs today Constipation 41272581 K5 9.00 Patient returns December 21, 2024. [...] prescripti on for Marleen. Cobalamin deficiency 190 050119 E53.8 History of vitamin B12 deficiency . He is currently receiving monthly vitamin B12. Labs on June 08, 2024 with vitamin B12 normal at 426. Normal folic acid Gastrostom y tube in situ 784821423 Z93.1 Patient interested in possible removal of PEG tube. Discussed potential PEG button placement and will follow-up nutrition needs. He is scheduled to have his feeding tube removed as he is eating without trouble and has not used his feeding tube in at least 2-3 months. Severe dry skin 91812690 2 L85.3 Patient returns November 23, 2024. [...] Liver enzy mes level above reference range 129775119 R74.01 Labs December 14, 2024 with elevated [...] Keytruda today. Will continue to monitor labs. [id number] Shelli Harris PA-C [facility] [address] [place] [address] 01/11/2025 09:03:46 01/11/2025 09:28:31 Squamous cell carcinoma of larynx [id number] C32.9 CT scan on November 24, 2023 [...] response. Will request P 16 results from [facility]. Discussed additional testing with on peripheral blood [...] Keytruda today. Patient states he went to [facility] since previous visit due to urinary retention. [...] atrial fibrillati on. Will request records from [facility] to review. Metastatic malignant neoplasm to lung 44488833 C78.01 PET scan performed on December 22, [...] no significan t uptake. Immunological therapy 76 742026 Z51.12 Cycle 1 of Keytruda on April [...] Keytruda today to monitor for toxicity. Hypomagnesemia 333479330 E83.42 Currently taking daily magnesium. Will follow-up labs today Constipation 20114154 K5 9.00 Patient has had constipati on is taking MiraLax and bowel movements have improved a little with this. Prescripti on sent for Linzess and he is planning to pick this up from pharmacy today. Cobalamin deficiency 190 352360 E53.8 History of vitamin B12 deficiency . He is currently receiving monthly vitamin B12. Labs on June 08, 2024 with vitamin B12 normal at 426. Normal folic acid. Will follow up labs today. Severe dry skin 87514137 2 L85.3 Patient with dry pruritic skin. No rash. Discussed using moisturize r with Aquaphor and Aveeno body wash. He is using moisturize r with Aquaphor and Aveeno body wash with improvemen t of dry skin. Nausea and vomiting 1693 1999 R11.2 Prescribed Zofran as needed. [id number] Shelli Harris PA-C [facility] On[facility] Hematolog [facility] [address] [facility] [address] [place] [address] 02/01/2025 08:35:14 02/01/2025 09:24:21 Immunological therapy 64308098 Z51.12 Cycle 1 of Keytruda on April [...] toxicity. Squamous c ell carcinoma of larynx 556772668 C32.9 CT scan on November 24, 2023 [...] response. Will request P 16 results from [facility]. Discussed additional testing with on peripheral blood [...] that time. Metastatic malignant neoplasm to lung 94563687 C78.01 PET scan performed on December 22, [...] cm with no significan t uptake. Hypomagnesemia 144004008 E83.42 Currently taking daily magnesium. Will follow-up labs today Constipation 08180411 K5 9.00 Patient has had constipati on is taking MiraLax and bowel movements have improved a little with this. Prescripti on sent for Linzess. Cobalamin deficiency 190 722217 E53.8 History of vitamin B12 deficiency . He is currently receiving monthly vitamin B12. Labs on June 08, 2024 with vitamin B12 normal at 426. Normal folic acid. Will follow up labs today. Severe dry skin 44421536 2 L85.3 Patient with dry pruritic skin. No rash. Discussed using moisturize r with Aquaphor and Aveeno body wash. He is using moisturize r with Aquaphor and Aveeno body wash with improvemen t of dry skin. Nausea and vomiting 1692 1999 R11.2 Prescribed Zofran as needed. [id number] Claudia Childs MD [facility] Gen Surg NEW [address] [place] [address] 02/06/2025 08:26:36 02/06/2025 08:58:51 Irreducible inguinal hernia 509314305 K40.30 [id number] Right inguinal hernia containing chronicall y incarcerat [...] minutes. Squamous c ell carcinoma of larynx 432924203 C32.9 Patient with stage IVC squamous cell [...] surgical options. Metastatic malignant neoplasm to lung 17269436 C78.01 [id number] Shelli Harris PA-C [facility] [address] [place] [address] 02/22/2025 08:09:06 02/22/2025 08:44:34 Immunological therapy 26968039 Z51.12 Cycle 1 of Keytruda on April [...] toxicity. Squamous c ell carcinoma of larynx 705295915 C32.9 CT scan on November 24, 2023 [...] response. Will request P 16 results from [facility]. Discussed additional testing with on peripheral blood [...] and pelvis. Metastatic malignant neoplasm to lung 36330553 C78.01 PET scan performed on December 22, [...] cm with no significan t uptake. Hypomagnesemia 383338306 E83.42 Currently taking daily magnesium. Will follow-up labs today Constipation 35649171 K5 9.00 Patient has had constipati on is taking MiraLax and bowel movements have improved a little with this. Prescripti on sent for Marleen. Cobalamin deficiency 190 670984 E53.8 History of vitamin B12 deficiency . He is currently receiving monthly vitamin B12. Labs on June 08, 2024 with vitamin B12 normal at 426. Normal folic acid. Will follow up labs today. Severe dry skin 21262499 2 L85.3 Patient with dry pruritic skin. No rash. Discussed using moisturize r with Aquaphor and Aveeno body wash. He is using moisturize r with Aquaphor and Aveeno body wash with improvemen t of dry skin. Nausea and vomiting 1692 1999 R11.2 Prescribed Zofran as needed. [id number] Megan Springer MD [facility]emat[facility] [address] [place] [address] 03/14/2025 08:01:03 03/14/2025 08:41:05 Immunological therapy 80435869 Z51.12 Cycle 1 of Keytruda on April [...] toxicity. Squamous c ell carcinoma of larynx 285659824 C32.9 CT scan on November 24, 2023 [...] response. Will request P 16 results from [facility]. Discussed additional testing with on peripheral blood [...] Will follow-up Metastatic malignant neoplasm to lung 20982395 C78.01 PET scan performed on December 22, [...] cm with no significan t uptake. Hypomagnesemia 016569996 E83.42 Currently taking daily magnesium. Will follow-up labs today Constipation 16043685 K5 9.00 Patient has had constipati on is taking MiraLax and bowel movements have improved a little with this. Prescripti on sent for Marleen. Cobalamin deficiency 190 526638 E53.8 History of vitamin B12 deficiency . He is currently receiving monthly vitamin B12. Labs on June 08, 2024 with vitamin B12 normal at 426. Normal folic acid. Will follow up labs today. Severe dry skin 30214653 2 L85.3 Patient with dry pruritic skin. No rash. Discussed using moisturize r with Aquaphor and Aveeno body wash. He is using moisturize r with Aquaphor and Aveeno body wash with improvemen t of dry skin. Nausea and vomiting 1693 2000 R11.2 Prescribed Zofran as needed. Parotitis 94115214 K11.[address] scan of the neck chest abdomen [...] to potentiall y resume Keytruda. Will follow-up [id number] Shelli Harris PA-C [facility] Hemat[facility] [address] [place] [address] 05/10/2025 08:17:55 05/10/2025 09:28:53 Immunological therapy 62943168 Z51.12 Cycle 1 of Keytruda on April [...] toxicity. Squamous c ell carcinoma of larynx 069440046 C32.9 CT scan on November 24, 2023 [...] response. Will request P 16 results from [facility]. Discussed additional testing with on peripheral blood [...] Will follow-up. Metastatic malignant neoplasm to lung 18220862 C78.01 PET scan performed on December 22, [...] cm with no significan t uptake. Hypomagnesemia 499646450 E83.42 Currently taking daily magnesium. Will follow-up labs today Constipation 99241678 K5 9.00 Patient has had constipati on is taking MiraLax and bowel movements have improved a little with this. Prescripti on sent for Linzess. Cobalamin deficiency 190 676632 E53.8 History of vitamin B12 deficiency . He is currently receiving monthly vitamin B12. Labs on June 08, 2024 with vitamin B12 normal at 426. Normal folic acid. Will follow up labs today. Severe dry skin 74342810 2 L85.3 Patient with dry pruritic skin. No rash. Discussed using moisturize r with Aquaphor and Aveeno body wash. He is using moisturize r with Aquaphor and Aveeno body wash with improvemen t of dry skin. Nausea and vomiting 1692 1999 R11.2 Prescribed Zofran as needed. Parotitis 01812364 K11.[address] scan of the neck chest abdomen [...] negative for malignant cells. Low blood pressure 41764 003 I95.9 [id number] Patient returns for follow up on May [...] need to be adjusted. Nodule of lung 667809317 R91.1 [id number] Patient states he recently had a chest CT at [facility] and nodule was noted in his lung. He states it was recommende d he have a biopsy of the nodule. Will request report from [facility]. He has stable lung [...] Name 05/10/2025 [place] Ann Marie Squires [place] [id number] [facility] 05/10/2025 1 [facility] (MEDICARE REPLACEMENT/A DVANTAGE - HMO) [id number] Ann Marie Squires [place] [id number] [facility] 05/10/2025 1 [place] Ann Marie Squires [place] [id number] [facility] 05/10/2025 2 [facility] (MEDICAID HMO) [facility] [id number] Ann [facility] Notes Date Note Type Note Provider Name and Address Organization Details Recorded Time 02/01/2025 text/html 79 yo M returns for evaluation 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 Patient presented to [facility] for evaluation with ENT in November 2023. [...] response. Will request P 16 results from [facility]. Discussed additional testing with on peripheral blood [...] Patient states he went to [facility] due to urinary retention. He was diagnosed [...] time. Shelli Harris PA-C [address], [place], [address], [facility] - [facility]NT [facility] & [place] 02/01/2025 09:21:30 02/06/2025 text/html 79-year-old man referred [...] treatment. 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 Patient presented to [facility] for evaluation with ENT in November 2023. [...] response. Will request P 16 results from [facility]. Discussed additional testing with on peripheral blood [...] Patient states he went to [facility] due to urinary retention. He was diagnosed [...] chest abdomen and pelvis. 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 Patient presented to [facility] for evaluation with ENT in November 2023. [...] response. Will request P 16 results from [facility]. Discussed additional testing with on peripheral blood [...] Patient states he went to [facility] due to urinary retention. He was diagnosed [...] resume Keytruda. 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 Patient presented to [facility] for evaluation with ENT in November 2023. [...] response. Will request P 16 results from [facility]. Discussed additional testing with on peripheral blood [...] Patient states he went to [facility] due to urinary retention. He was diagnosed [...] he recently had a chest CT at [facility] and nodule was noted in his lung. He states it was recommended he have a biopsy of the nodule. Will request report from [facility]. He has stable lung nodules on scan March 05, 2025. Parotid gland biopsy April 23, 2025 negative for malignant cells. Will continue with Keytruda. Will resume Keytruda May 10, 2025. Will follow-up Shelli Harris PA-C [address], [place], [address], [place] [facility] & [place] 05/10/2025 09:39:46
[2025-09-12 09:27] LABS: Hematocrit 42.8 % (42.0-52.0); Hemoglobin 14.0 g/dL (14.1-18.0); Immature Granulocytes % 0.3 %; Mean Corpuscular HGB Conc 32.7 g/dL (31.8-35.4); Mean Corpuscular Hemoglobin 29.7 pg (27.0-31.2); Mean Corpuscular Volume 90.9 fl (80-94); Nucleated Red Blood Cells % 0 %; Platelet Count 177 K/mm3 (142-424); Red Blood Count 4.71 M/mm3 (4.60-6.20); Red Cell Distribution Width-SD 46.5 fL; White Blood Count 6.9 K/mm3 (4.8-10.8)
[2025-09-12 09:37] LABS: Alanine Aminotransferase 15 U/L (12-78); Albumin Level 4.0 g/dl (3.5-5.0); Albumin/Globulin Ratio 1.2 (1.1-1.8); Alkaline Phosphatase 143 U/L (38-126); Anion Gap 9.9 mEq/L (5-15); Aspartate Amino Transferase 22 U/L (17-59); Bilirubin,Total 0.7 mg/dl (0.2-1.3); Blood Urea Nitrogen 13 mg/dl (9-20); Calcium 9.0 mg/dl (8.4-10.2); Carbon Dioxide 31 mmol/L (22.0-30.0); Chloride 99 mmol/L (98-107); Creatinine Clearance Estimated 65 mL/min (50-200); Creatinine,Serum 0.80 mg/dl (0.66-1.25); Estimated Glomerular Filt Rate 93 ml/min (>60); GFR (African American) 113 ML/MIN (>60); Globulin 3.4 g/dL (1.3-3.2); Glucose 96 mg/dl (74-100); Potassium 3.9 mmoL/L (3.5-5.1); Sodium 136 mmol/L (136-145); Total Protein,Serum 7.4 g/dl (6.3-8.2)
[2025-09-12] MEDS: PEMBROLIZUMAB 200 MG in 0.9 % SODIUM CHLORIDE 50 ML 116 MG IV (10:28)
[2025-09-12 10:30] VITALS: BP 93/59; PULSE 69; RESP 17; TEMP 36.4; O2SAT 98
[2025-09-12 10:45] VITALS: BP 105/60; PULSE 70; RESP 16
[2025-09-12 10:53] LABS: Thyroid Stimulating Hormone 1.62 uIU/mL (0.465-4.68)
[2025-09-12 11:00] VITALS: BP 111/59; PULSE 70; RESP 16
== END 2025-09-12 23:59 | disposition home or self-care (01) ==
LOC: INF 09:02
PROVIDERS: PCP Family Medicine; Visit Provider Internal Medicine Medical Oncology
DX: C76.0 Malignant neoplasm of head, face and neck (principal); Z51.11 Encounter for antineoplastic chemotherapy
CPT/HCPCS: 80053; 82024; 82533; 84443; 85025; 96413; J9271

== ENCOUNTER 2025-10-03 08:59 | Outpatient (CLI) | payer MEDICARE, OTHER, SELFPAY ==
[2025-10-03 09:02] VITALS: BMI 24.1
--- OUTSIDE RECORDS SUMMARY | 2025-10-03 09:03 | XMS_ITS | Encounter Summary ---
Author Organization [facility] Address [address] [id number] Care Team Providers Care Bridge Operator Name Role Phone Efrain Sarah MD Unavailable [phone] Aris Lynch MD Unavailable [phone] Drew Howell MD Primary Care Provider [phone] Toñito Huerta MD Unavailable [phone] Encounter Details Date Type Department Care Team (Late st Contact Info) Description 02/21/2024 Lab Requisition [facility] [address] [place] [address] Drea Loera MD [address] [place] [address] Malignant neoplasm of larynx, unspecified [...] s 03/08/2024 1:03 PM EDT [facility] Comment:[id number] A2 Test Result see scan 03/08/2024 1:03 PM EDT [facility] See Scanned Result 03/08/2024 1:03 PM EDT [facility] Tissue 02/21/2024 02/21/2024 9:5 3 AM EDT us Drea Loera MD LAB REF LAB BLOOD AND FLUID OR D Final Result [facility] [address] [place] [address] documented in this encounter Visit Diagnoses Diagnosis Malignant neoplasm of larynx, unspecified (CMS/HCC) documented in this encounter Additional Health Concerns Assessment Noted Time A fall risk assessment has been complete d for the patient 01/19/2024 10:49 AM EDT A Body Mass Index follow-up plan has been documented for the patient 01/01/2024 10:12 AM EST documented as of this encounter Care Teams Bridge Operator Relationship Specialty Start Date End Date Drew Howell MD [address] [place] [address] [address] [place] [address] PCP - General 12/23/23 Efrain Sarah MD [facility] [place] [address] 12/02/23 Aris Lynch MD [address] [facility] [address] [place] [phone] Surgeon Otolaryngology 12/02/23 Toñito Huerta MD [address] [place] [phone] Consulting Physician Medical Oncology 01/18/24 documented as of this encounter
--- OUTSIDE RECORDS SUMMARY | 2025-10-03 09:03 | XMS_ITS | Referral Summary ---
Author Organization [employer] ([place], [place], [place], [place], [place]) Address [address] [place] [address] Care Team Providers Care Battery Vent Plug Inserter Name Role Phone Unavailable Primary Care Provider [...] Date Luis rded Speak language other than Ghanaian at home Not on file 12/01/2023 Want [...] on file Medical Devices Implanted Type Area Electrical Instrument Maker Device Identifier Shelf Expiration Date Model / Serial / Lot Pacemakers Pacemakers Insurance [facility]
--- OUTSIDE RECORDS SUMMARY | 2025-10-03 09:03 | XMS_ITS | Encounter Summary ---
Author Organization Healthcare Address [address] [place] [address] Care Team Providers Care Membership Secretary Name Role Phone Pcp, No Primary Care Provider Unavailbecca e Efrain Sarah MD Unavailable [phone] Aris Lynch MD Unavailable [phone] Pcp, No Primary Care Provider Unavailabl e Drew Howell MD Primary Care Provider [phone] Anjelica Keys MD Unavailable [phone] Toñito Huerta MD Unavailable [phone] Encounter Details Date Type Department Care Team (Late st Contact Info) Description 11/24/2023 Orders Only External Location [address] [place] [address] Camryn Meadows, DO [address] [place] [address] Social History Tobacco Use Types Packs/Day Years [...] on filedocumented in this encounter Care Teams Membership Secretary Relationship Specialty Start Date End Date Pcp, No [address] [place] [address] PCP - General 05/01/21 12/07/23 Pcp, No [address] [place] [address] PCP - General Family Medicine 12/08/23 12/22/23 Drew Howell MD [address] [place] [address] [address] [place] [address] PCP - General 12/23/23 Efrain Sarah MD [address] [place] [address] 12/02/23 Aris Lynch MD 800 [facility] [address] [place] [address] Surgeon Otolaryngology 12/02/23 Anjelica Keys MD 800 [facility] [address] [address] Consulting Physician Medical Oncology 01/13/24 01/17/24 Toñito Huerta MD [address] [place] [phone] Consulting Physician Medical Oncology 01/18/24 documented as of this encounter
--- OUTSIDE RECORDS SUMMARY | 2025-10-03 09:03 | XMS_ITS | Encounter Summary ---
Author Organization Healthcare Address [address] [place] [address] Care Team Providers Care Ux Researcher Name Role Phone Efrain Sarah MD Unavailable [phone] Aris Lynch MD Unavailable [phone] Drew Howell MD Primary Care Provider [phone] Toñito Huerta MD Unavailable [phone] Encounter Details Date Type Department Care Team (Late st Contact Info) Description 03/05/2025 Orders Only External Location [address] [place] [address] Provider, External Social History Tobacco Use Types [...] documented as of this encounter Care Teams Ux Researcher Relationship Specialty Start Date End Date Drew Howell MD [address] [facility] [address] [place] [address] PCP - General 12/23/23 Efrain Sarah MD [address] [place] [address] 12/02/23 Aris Lynch MD 800 [facility] [address] [phone] Surgeon Otolaryngology 12/02/23 Toñito Huerta MD [address] [place] [phone] Consulting Physician Medical Oncology 01/18/24 documented as of this encounter
--- OUTSIDE RECORDS SUMMARY | 2025-10-03 09:03 | XMS_ITS | Clinical Summary ---
Author Organization [employer] ([place], [place], [place], [place], [place]) Address [address] [place] [address] Care Team Providers Care Rotary Cutter Name Role Phone Unavailable Primary Care [...] Date Luis rded Speak language other than Vietnamese at home Not on file 12/01/2023 Want [...] (#1) 2025 Medical Devices Implanted Type Area Clamp Forklift Operator Device Identifier Shelf Expiration Date Model / Serial / Lot Pacemakers Pacemakers Insurance DUAL COMPLETE MCR ADV [employer]
--- OUTSIDE RECORDS SUMMARY | 2025-10-03 09:03 | XMS_ITS | Clinical Summary ---
Author Organization [facility] Address [address] [place] [address] Care Team Providers Care Conservation Planner Name Role Phone Efrain Sarah MD Unavailable [phone] Aris Lynch MD Unavailable [phone] Drew Howell MD Primary Care Provider [phone] Toñito Huerta MD Unavailable [phone] Allergies Active Allergy Reactions Criticality Noted [...] of 3 - PCV) 11/01/2014 11/01/2013, 11/01/2012 [id number] Vaccine (2 - Chyna risk series) 07/16/2021 [...] Most Recently Relevant to Health Maintenance Insurance [facility] MEDICAID [facility] MEDICARE Care Teams Conservation Planner Relationship Specialty Start Date End Date Drew Howell MD [address] [facility] [address] [place] [address] PCP - General 12/23/23 Efrain Sarah MD [address] [place] [address] 12/02/23 Aris Lynch MD 800 [facility] [address] [phone] Surgeon Otolaryngology 12/02/23 Toñito Huerta MD [address] [place] [phone] Consulting Physician Medical Oncology 01/18/24
[2025-10-03 09:18] LABS: Hematocrit 44.3 % (42.0-52.0); Hemoglobin 14.3 g/dL (14.1-18.0); Immature Granulocytes % 0.4 %; Mean Corpuscular HGB Conc 32.3 g/dL (31.8-35.4); Mean Corpuscular Hemoglobin 29.7 pg (27.0-31.2); Mean Corpuscular Volume 92.1 fl (80-94); Nucleated Red Blood Cells % 0 %; Platelet Count 166 K/mm3 (142-424); Red Blood Count 4.81 M/mm3 (4.60-6.20); Red Cell Distribution Width-SD 50.4 fL; White Blood Count 7.3 K/mm3 (4.8-10.8)
[2025-10-03 09:24] LABS: Albumin Level 4.3 g/dl (3.5-5.0); Chloride 101 mmol/L (98-107); Sodium 144 mmol/L (136-145)
[2025-10-03 09:25] LABS: Potassium 4.3 mmoL/L (3.5-5.1)
[2025-10-03 09:27] LABS: Alanine Aminotransferase 16 U/L (12-78); Anion Gap 17.3 mEq/L (5-15); Aspartate Amino Transferase 20 U/L (17-59); Blood Urea Nitrogen 14 mg/dl (9-20); Carbon Dioxide 30 mmol/L (22.0-30.0); Creatinine Clearance Estimated 63 mL/min (50-200); Creatinine,Serum 0.90 mg/dl (0.66-1.25); Estimated Glomerular Filt Rate 81 ml/min (>60); GFR (African American) 98 ML/MIN (>60)
[2025-10-03 09:28] LABS: Albumin/Globulin Ratio 1.2 (1.1-1.8); Alkaline Phosphatase 123 U/L (38-126); Bilirubin,Total 0.6 mg/dl (0.2-1.3); Calcium 9.1 mg/dl (8.4-10.2); Globulin 3.6 g/dL (1.3-3.2); Glucose 102 mg/dl (74-100); Total Protein,Serum 7.9 g/dl (6.3-8.2)
[2025-10-03 09:59] LABS: Thyroid Stimulating Hormone 1.41 uIU/mL (0.465-4.68)
[2025-10-03 11:04] VITALS: BP 109/63; PULSE 70; RESP 20; TEMP 36.4; O2SAT 97
[2025-10-03] MEDS: PEMBROLIZUMAB 200 MG in 0.9 % SODIUM CHLORIDE 50 ML 116 MG IV (11:04)
[2025-10-03] MEDS: SODIUM CHLORIDE 0.9% 10ML FLUSH SYRINGE 10 ML IV (11:04)
[2025-10-03 11:45] VITALS: BP 108/65; PULSE 70; RESP 20; O2SAT 98
== END 2025-10-03 23:59 | disposition home or self-care (01) ==
LOC: INF 09:00
PROVIDERS: PCP Family Medicine; Visit Provider Internal Medicine Medical Oncology
DX: C76.0 Malignant neoplasm of head, face and neck (principal); Z51.11 Encounter for antineoplastic chemotherapy
CPT/HCPCS: 80053; 82024; 82533; 84443; 85025; 96413; J9271

== ENCOUNTER 2025-10-26 08:18 | Outpatient (CLI) | payer MEDICARE, OTHER, SELFPAY ==
--- OUTSIDE RECORDS SUMMARY | 2025-10-26 08:20 | XMS_ITS | Clinical Summary ---
Author Organization [employer] ([place], [place], [place], [place], [place]) Address [address] [place] [address] Care Team Providers Care Spray Applicator Name Role Phone Unavailable Primary Care Provider [...] Date Luis rded Speak language other than Lao at home Not on file 12/01/2023 Want [...] (#1) 2025 Medical Devices Implanted Type Area Warehouse Consultant Device Identifier Shelf Expiration Date Model / Serial / Lot Pacemakers Pacemakers Insurance DUAL COMPLETE MCR ADV [employer] [place]
--- OUTSIDE RECORDS SUMMARY | 2025-10-26 08:20 | XMS_ITS | Clinical Summary ---
Author Organization [facility] Address [address] [place] [address] Care Team Providers Care Primary Montessori Teacher Name Role Phone Efrain Sarah MD Unavailable [phone] Aris Lynch MD Unavailable [phone] Drew Howell MD Primary Care Provider [phone] Toñito Huerta MD Unavailable [phone] Allergies Active Allergy Reactions Criticality Noted [...] Date Smoking Tobacco: Every Day Cigarettes 1 72 Started: 1952 Smokeless Tobacco: Never Tobacco Cessation:Ready [...] [facility]-Depression Screening 1946 [facility]-Hepatitis C Screening 1945 [facility]-Medicare Annual Wellness (AWV) 1946 [facility]-Infant/Child/Adol SDOH Screenings 1946 [facility]- SDOH Screenings 1964 [facility]-Adult SDOH Screenings 1964 [facility]-DTaP,Tdap,and Td Vaccines (1 - Tdap) 1965 [facility]-Zoster Vaccines (1 of 2) 1965 [facility]-Pneumococcal Vaccine: 50+ Years (3 of 3 - PCV) 11/01/2014 11/01/2013, 11/01/2012 [id number] Vaccine (2 - Chyna risk series) 07/16/2021 06/18/2021 [facility]-RSV Vaccine: 60+ Years or (1 - 1-dose 75+ series) 2021 [facility]-Influenza Vaccine (#1) 07/02/202511/01, 11/01/2012, 09/14/2009 [facility]-Lung Cancer Screening Discontinued 12/08/2023 HPV Vaccines (No Doses Required) Completed [facility]-HIB Vaccines Aged Out No longer e [...] Most Recently Relevant to Health Maintenance Insurance [facility] MEDICARE Care Teams Primary Montessori Teacher Relationship Specialty Start Date End Date Drew Howell MD [address] [facility] [address] [place] [address] PCP - General 12/23/23 Efrain Sarah MD [address] [place] [address] 12/02/23 Aris Lynch MD [address] [phone] Surgeon Otolaryngology 12/02/23 Toñito Huerta MD [address] [place] [phone] Consulting Physician Medical Oncology 01/18/24
--- OUTSIDE RECORDS SUMMARY | 2025-10-26 08:20 | XMS_ITS | Referral Summary ---
Author Organization [employer] ([place], [place], [place], [place], [place]) Address [address] [place] [address] Care Team Providers Care Wood Room Hand Name Role Phone Unavailable Primary Care Provider [...] on file Medical Devices Implanted Type Area Flight Operations Dispatch Clerk Device Identifier Shelf Expiration Date Model / Serial / Lot Pacemakers Pacemakers Insurance [facility] COM[facility]TE [facility]
--- OUTSIDE RECORDS SUMMARY | 2025-10-26 08:20 | XMS_ITS | Encounter Summary ---
Author Organization [facility] Address [address] [place] [address] Care Team Providers Care Pneumatic Tool Repairer Name Role Phone Efrain Sarah MD Unavailable [phone] Aris Lynch MD Unavailable [phone] Drew Howell MD Primary Care Provider [phone] Toñito Huerta MD Unavailable [phone] Encounter Details Date Type Department Care Team (Late st Contact Info) Description 03/05/2025 Orders Only External Location [address] [place] [address] Provider, External Social History Tobacco Use Types Packs/Day Years Used Date Smoking Tobacco: Every Day Cigarettes 1 72 Started: 1952 Smokeless Tobacco: Never Comments:Trying to [...] documented as of this encounter Care Teams Pneumatic Tool Repairer Relationship Specialty Start Date End Date Drew Howell MD 430 [facility] [address] [place] [address] PCP - General 12/23/23 Efrain Sarah MD [address] [place] [address] 12/02/23 Aris Lynch MD 800 [facility] [address] [phone] Surgeon Otolaryngology 12/02/23 Toñito Huerta MD [address] [place] [phone] Consulting Physician Medical Oncology 01/18/24 documented as of this encounter
--- OUTSIDE RECORDS SUMMARY | 2025-10-26 08:20 | XMS_ITS | Encounter Summary ---
Author Organization Healthcare Address [address] [place] [address] Care Team Providers Care Accelerator Technician Name Role Phone Pcp, No Primary Care Provider Unavailbecca e Efrain Sarah MD Unavailable [phone] Aris Lynch MD Unavailable [phone] Pcp, No Primary Care Provider Unavailabl e Drew Howell MD Primary Care Provider [phone] Anjelica Keys MD Unavailable [phone] Toñito Huerta MD Unavailable [phone] Encounter Details Date Type Department Care Team (Late st Contact Info) Description 11/24/2023 Orders Only External Location [address] [place] [address] Camryn Meadows, DO [address] [place] [phone] Social History Tobacco Use Types Packs/Day Years [...] on filedocumented in this encounter Care Teams Accelerator Technician Relationship Specialty Start Date End Date Pcp, No [address] [place] [address] PCP - General 05/01/21 12/07/23 Pcp, No [address] [place] [address] PCP - General Family Medicine 12/08/23 12/22/23 Drew Howell MD [address] [place] [address] [address] [place] [address] PCP - General 12/23/23 Efrain Sarah MD [address] [place] [address] 12/02/23 Aris Lynch MD 800 [facility] [address] [place] [phone] Surgeon Otolaryngology 12/02/23 Anjelica Keys MD 800 [facility] [place] [phone] Consulting Physician Medical Oncology 01/13/24 01/17/24 Toñito Huerta MD [address] [place] [phone] Consulting Physician Medical Oncology 01/18/24 documented as of this encounter
--- OUTSIDE RECORDS SUMMARY | 2025-10-26 08:20 | XMS_ITS | Encounter Summary ---
Author Organization [facility] Address [address] [id number] Care Team Providers Care Conference Center Coordinator Name Role Phone Efrain Sarah MD Unavailable [phone] Aris Lynch MD Unavailable [phone] Drew Howell MD Primary Care Provider [phone] Toñito Huerta MD Unavailable [phone] Encounter Details Date Type Department Care Team (Late st Contact Info) Description 02/21/2024 Lab Requisition [facility] [address] [place] [address] Drea Loera MD [address] [place] [address] Malignant neoplasm of larynx, unspecified [...] 12:00 AM EDT) Test name xT Panel, NGA-Rosendopu antonio 03/08/2024 1:03 PM EDT [facility] Comment:[id number] A2 Test Result see scan 03/08/2024 1:03 PM EDT [facility] See Scanned Result 03/08/2024 1:03 PM EDT [facility] Tissue 02/21/2024 02/21/2024 9:5 3 AM EDT us Drea Loera MD LAB REF LAB BLOOD AND FLUID OR D Final Result [facility] [address] [place] [address] documented in this encounter Visit Diagnoses Diagnosis Malignant neoplasm of larynx, unspecified (CMS/HCC) documented in this encounter Additional Health Concerns Assessment Noted Time A fall risk assessment has been complete d for the patient 01/19/2024 10:49 AM EDT A Body Mass Index follow-up plan has been documented for the patient 01/01/2024 10:12 AM EST documented as of this encounter Care Teams Conference Center Coordinator Relationship Specialty Start Date End Date Drew Howell MD [address] [place] [address] [address] [place] [address] PCP - General 12/23/23 Efrain Sarah MD [facility] [address] [place] [address] 12/02/23 Aris Lynch MD [address] [facility] [address] [place] [phone] Surgeon Otolaryngology 12/02/23 Toñito Huerta MD [address] [place] [phone] Consulting Physician Medical Oncology 01/18/24 documented as of this encounter
--- NOTE | 2025-10-26 08:45 | CT_ITS ---
FINAL REPORT CLINICAL HISTORY: cancer evaluation COMPARISON: 07/05/2025 FINDINGS: CT NECK WITH CONTRAST TECHNIQUE: Axial CT with IV contrast administration. This study was performed with techniques to keep radiation doses as low as reasonably achievable, (ALARA). Individualized dose reduction techniques using automated exposure control or adjustment of mA and/or kV according to the patient's size were employed. FINDINGS: The txash-da-gguo is more restricted on this examination, and some portions of the parotid glands are not well-seen. However, the lesions mentioned on the prior exam of 07/05/2025 are all within the egtoi-xk-zoct. There is a low-density in the posterior right parotid, measuring 12 mm in size and stable. There is an oval lesion in the posterior superficial left parotid gland, measuring 13 mm in size, was previously 17 mm in size. There is a solid hyperdense mass in the deep left lobe, 14 mm, was previously 13 mm. There is a low-density lesion in the left tongue base, measuring 6 mm, not as well-seen on the prior exam, favor benign. No cervical adenopathy is identified. Note is made of left vocal cord paralysis, also present on the prior exam. There is no abscess. IMPRESSION: 1. There is minimal change in the multiple parotid lesions seen on the prior exam. 2. No adenopathy is present. 3. Left vocal cord paralysis. This study was performed using automated techniques to achieve radiation exposure as low as reasonably achievable Reviewed, Interpreted and Dictated by Mundo Ogden MD Transcribed by Sagrario Navarro Authenticated and [facility]
[2025-10-26] MEDS: SODIUM CHLORIDE 0.9% 10ML SYR (RAD ONLY) 10 ML IV (08:53)
[2025-10-26] MEDS: IOPAMIDOL-370 (76%);100ML BOTTLE 100 ML IV (08:53)
--- NOTE | 2025-10-26 09:30 | CT_ITS ---
FINAL REPORT TECHNIQUE: IV contrast enhanced exam This study was performed with techniques to keep radiation doses as low as reasonably achievable, (ALARA). Individualized dose reduction techniques using automated exposure control or adjustment of mA and/or kV according to the patient's size were employed. CLINICAL HISTORY: cancer evaluation COMPARISON: 07/05/2025 FINDINGS: CT ABDOMEN PELVIS WITH CONTRAST: Abdomen: The gallbladder is present, containing gallstones. Liver has an unremarkable CT appearance. The spleen and pancreas are unremarkable. There is a 32 mm in size, stable, likely an adenoma. No adenopathy is identified. Kidneys show no mass or obstruction. No bowel obstruction or fluid collection is seen. Pelvis: The appendix is not visualized. A large right inguinal hernia is once again noted, containing multiple small bowel loops similar to the prior exam. Pelvic bowel loops are otherwise unremarkable. Mild enlargement of the prostate is present. No fluid collection or adenopathy is seen. IMPRESSION: 1. Stable exam without evidence of metastatic disease. Reviewed, Interpreted and Dictated by Mundo Ogden MD Transcribed by Sagrario Navarro Authenticated and [facility]
--- NOTE | 2025-10-26 09:30 | CT_ITS ---
FINAL REPORT TECHNIQUE: Axial CT with contrast with 3-D MIP reconstruction This study was performed with techniques to keep radiation doses as low as reasonably achievable, (ALARA). Individualized dose reduction techniques using automated exposure control or adjustment of mA and/or kV according to the patient's size were employed. CLINICAL HISTORY: cancer evaluation COMPARISON: 07/05/2025 FINDINGS: CT CHEST WITH CONTRAST: There is increasing nodularity in the right upper lobe in comparison to the prior exam of 07/05/2025. There is cluster of nodules in the right upper lobe anteriorly, measuring up to 8 mm in size, were previously up to 4 mm in size. There is an ovoid nodule in the lateral peripheral right upper lobe measuring 4 mm in size, stable. There is a spiculated mass in the central right upper lobe, some of which may represent adenopathy, measuring 23 x 19 mm in size, not significantly changed. There is a left upper lobe nodule, 8 mm in size, also stable. Advanced changes of emphysema are again noted, with worsening scarring in the left lower lobe. There is scattered bilateral mediastinal adenopathy, the largest in the precarinal region, measuring up to 20 mm in size, stable. There is an AP window node measuring up to 13 mm, was previously 12 mm. There is minimal bilateral pleural scarring. 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 IMPRESSION: 1. Minimal progression of subcentimeter right upper lobe nodules, which could be metastases or inflammatory, stable. 2. Stable right upper lobe central mass. 3. Stable adenopathy. Reviewed, Interpreted and Dictated by Mundo Ogden MD Transcribed by Sagrario Navarro Authenticated and [facility]
== END 2025-10-26 23:59 | disposition home or self-care (01) ==
LOC: RAD 08:18
PROVIDERS: PCP Family Medicine; Visit Provider Internal Medicine Medical Oncology
DX: C76.0 Malignant neoplasm of head, face and neck (principal); J38.01 Paralysis of vocal cords and larynx, unilateral; K11.9 Disease of salivary gland, unspecified; R91.8 Other nonspecific abnormal finding of lung field; R59.0 Localized enlarged lymph nodes
CPT/HCPCS: 70491; 71260; 74177; Q9967

== ENCOUNTER 2025-10-31 09:04 | Outpatient (CLI) | payer MEDICARE, OTHER, SELFPAY ==
[2025-10-31 09:05] VITALS: BMI 23.9
--- OUTSIDE RECORDS SUMMARY | 2025-10-31 09:07 | XMS_ITS | Encounter Summary ---
Author Organization Healthcare Address [address] [place] [address] Care Team Providers Care Gym Attendant Name Role Phone Efrain Sarah MD Unavailable [phone] Aris Lynch MD Unavailable [phone] Drew Howell MD Primary Care Provider [phone] Toñito Huerta MD Unavailable [phone] Encounter Details Date Type Department Care Team (Late st Contact Info) Description 03/05/2025 Orders Only External Location [address] [place] [address] Provider, External Social History Tobacco Use Types [...] documented as of this encounter Care Teams Gym Attendant Relationship Specialty Start Date End Date Drew Howell MD 430 [facility] [address] [place] [address] PCP - General 12/23/23 Efrain Sarah MD [address] [place] [address] 12/02/23 Aris Lynch MD 800 [facility] [address] [phone] Surgeon Otolaryngology 12/02/23 Toñito Huerta MD [address] [place] [phone] Consulting Physician Medical Oncology 01/18/24 documented as of this encounter
--- OUTSIDE RECORDS SUMMARY | 2025-10-31 09:07 | XMS_ITS | Encounter Summary ---
Author Organization Healthcare Address [address] [place] [address] Care Team Providers Care Ending Machine Operator Name Role Phone Pcp, No Primary Care Provider Unavailbecca e Efrain Sarah MD Unavailable [phone] Aris Lynch MD Unavailable [phone] Pcp, No Primary Care Provider Unavailabl e Drew Howell MD Primary Care Provider [phone] Anjelica Keys MD Unavailable [phone] Toñito Huerta MD Unavailable [phone] Encounter Details Date Type Department Care Team (Late st Contact Info) Description 11/24/2023 Orders Only External Location [address] [place] [address] Camryn Meadows, DO [address] [place] [phone] Social History Tobacco Use Types Packs/Day Years [...] on filedocumented in this encounter Care Teams Ending Machine Operator Relationship Specialty Start Date End Date Pcp, No [address] [place] [address] PCP - General 05/01/21 12/07/23 Pcp, No [address] [place] [address] PCP - General Family Medicine 12/08/23 12/22/23 Drew Howell MD [address] [place] [address] [address] [place] [address] PCP - General 12/23/23 Efrain Sarah MD [address] [place] [address] 12/02/23 Aris Lynch MD 800 [facility] [address] [place] [phone] Surgeon Otolaryngology 12/02/23 Anjelica Keys MD 800 [facility] [address] [phone] Consulting Physician Medical Oncology 01/13/24 01/17/24 Toñito Huerta MD [address] [place] [phone] Consulting Physician Medical Oncology 01/18/24 documented as of this encounter
--- OUTSIDE RECORDS SUMMARY | 2025-10-31 09:08 | XMS_ITS | Clinical Summary ---
Author Organization [employer] ([place], [place], [place], [place], [place]) Address [address] [place] [address] Care Team Providers Care Professional Development Manager Name Role Phone Unavailable Primary Care [...] Date Luis rded Speak language other than Yi at home Not on file 12/01/2023 Want [...] (#1) 2025 Medical Devices Implanted Type Area Manager Occupational Device Identifier Shelf Expiration Date Model / Serial / Lot Pacemakers Pacemakers Insurance DUAL COMPLETE MCR ADV [employer] [facility] [place]
--- OUTSIDE RECORDS SUMMARY | 2025-10-31 09:08 | XMS_ITS | Clinical Summary ---
Author Organization [facility] Address [address] [place] [address] Care Team Providers Care Heating Fixture Tender Name Role Phone Efrain Sarah MD Unavailable [phone] Aris Lynch MD Unavailable [phone] Drew Howell MD Primary Care Provider [phone] Toñito Huerta MD Unavailable [phone] Allergies Active Allergy Reactions Criticality Noted [...] of 3 - PCV) 11/01/2014 11/01/2013, 11/01/2012 [id number] Vaccine (2 - Chyna risk series) 07/16/2021 [...] Most Recently Relevant to Health Maintenance Insurance [facility] [place] [phone] Care Teams Heating Fixture Tender Relationship Specialty Start Date End Date Drew Howell MD 430 [facility] [address] [place] [address] PCP - General 12/23/23 Efrain Sarah MD [address] [place] [address] 12/02/23 Aris Lynch MD [address] [phone] Surgeon Otolaryngology 12/02/23 Toñito Huerta MD [address] [place] [phone] Consulting Physician Medical Oncology 01/18/24
--- OUTSIDE RECORDS SUMMARY | 2025-10-31 09:08 | XMS_ITS | Encounter Summary ---
Author Organization [facility] Address [address] [id number] Care Team Providers Care Spool Worker Name Role Phone Efrain Sarah MD Unavailable [phone] Aris Lynch MD Unavailable [phone] Drew Howell MD Primary Care Provider [phone] Toñito Huerta MD Unavailable [phone] Encounter Details Date Type Department Care Team (Late st Contact Info) Description 02/21/2024 Lab Requisition [facility] [address] [place] [address] Drea Loera MD [address] [place] [address] Malignant neoplasm of larynx, unspecified [...] antonio 03/08/2024 1:03 PM EDT [facility] Comment:[id number] A2 Test Result see scan 03/08/2024 1:03 PM EDT [facility] See Scanned Result 03/08/2024 1:03 PM EDT [facility] Tissue 02/21/2024 02/21/2024 9:5 3 AM EDT us Drea Loera MD LAB REF LAB BLOOD AND FLUID OR D Final Result [facility] [address] [place] [address] documented in this encounter Visit Diagnoses Diagnosis Malignant neoplasm of larynx, unspecified (CMS/HCC) documented in this encounter Additional Health Concerns Assessment Noted Time A fall risk assessment has been complete d for the patient 01/19/2024 10:49 AM EDT A Body Mass Index follow-up plan has been documented for the patient 01/01/2024 10:12 AM EST documented as of this encounter Care Teams Spool Worker Relationship Specialty Start Date End Date Drew Howell MD [address] [place] [address] [address] [place] [address] PCP - General 12/23/23 Efrain Sarah MD [facility] [address] [place] [address] 12/02/23 Aris Lynch MD 800 [facility] [address] [place] [phone] Surgeon Otolaryngology 12/02/23 Toñito Huerta MD [address] [place] [phone] Consulting Physician Medical Oncology 01/18/24 documented as of this encounter
--- OUTSIDE RECORDS SUMMARY | 2025-10-31 09:08 | XMS_ITS | Referral Summary ---
Author Organization [employer] ([place], [place], [place], [place], [place]) Address [address] [place] [address] Care Team Providers Care Mineral Surveyor Name Role Phone Unavailable Primary Care Provider [...] on file Medical Devices Implanted Type Area Swimming Pool Maintenance Device Identifier Shelf Expiration Date Model / Serial / Lot Pacemakers Pacemakers Insurance [facility] DUAL COMPLETE MCR [facility]V [facility]
[2025-10-31 09:28] LABS: Hematocrit 44.5 % (42.0-52.0); Hemoglobin 14.7 g/dL (14.1-18.0); Immature Granulocytes % 0.3 %; Mean Corpuscular HGB Conc 33.0 g/dL (31.8-35.4); Mean Corpuscular Hemoglobin 30.6 pg (27.0-31.2); Mean Corpuscular Volume 92.7 fl (80-94); Nucleated Red Blood Cells % 0 %; Platelet Count 162 K/mm3 (142-424); Red Blood Count 4.80 M/mm3 (4.60-6.20); Red Cell Distribution Width-SD 50.0 fL; White Blood Count 6.5 K/mm3 (4.8-10.8)
[2025-10-31 09:37] LABS: Albumin Level 4.2 g/dl (3.5-5.0); Chloride 104 mmol/L (98-107); Potassium 4.3 mmoL/L (3.5-5.1); Sodium 141 mmol/L (136-145)
[2025-10-31 09:39] LABS: Blood Urea Nitrogen 16 mg/dl (9-20); Creatinine Clearance Estimated 62 mL/min (50-200); Creatinine,Serum 0.90 mg/dl (0.66-1.25); Estimated Glomerular Filt Rate 81 ml/min (>60); GFR (African American) 98 ML/MIN (>60)
[2025-10-31 09:40] LABS: Alanine Aminotransferase 16 U/L (12-78); Albumin/Globulin Ratio 1.4 (1.1-1.8); Alkaline Phosphatase 112 U/L (38-126); Anion Gap 9.3 mEq/L (5-15); Aspartate Amino Transferase 30 U/L (17-59); Bilirubin,Total 0.4 mg/dl (0.2-1.3); Calcium 9.4 mg/dl (8.4-10.2); Carbon Dioxide 32 mmol/L (22.0-30.0); Globulin 2.9 g/dL (1.3-3.2); Glucose 111 mg/dl (74-100); Total Protein,Serum 7.1 g/dl (6.3-8.2)
[2025-10-31 10:09] VITALS: BP 114/64; PULSE 69; RESP 18; TEMP 36.6; O2SAT 96
[2025-10-31] MEDS: PEMBROLIZUMAB 200 MG in 0.9 % SODIUM CHLORIDE 50 ML 116 MG IV (10:09)
[2025-10-31] MEDS: SODIUM CHLORIDE 0.9% 10ML FLUSH SYRINGE 10 ML IV (10:10)
[2025-10-31 10:50] VITALS: BP 110/69; PULSE 67; RESP 18; O2SAT 96
[2025-10-31 11:47] LABS: Thyroid Stimulating Hormone 3.40 uIU/mL (0.465-4.68)
== END 2025-10-31 23:59 | disposition home or self-care (01) ==
LOC: INF 09:05
PROVIDERS: PCP Family Medicine; Visit Provider Internal Medicine Medical Oncology
DX: C76.0 Malignant neoplasm of head, face and neck (principal); Z51.11 Encounter for antineoplastic chemotherapy
CPT/HCPCS: 80053; 82024; 82533; 84443; 85025; 96413; J9271